=== PATIENT | male | born 1950 | race Caucasian/White ===

== ENCOUNTER 2021-06-27 11:16 | Inpatient (IN) | payer MEDICARE, SELFPAY ==
[2021-06-27] VITALS (15 sets, daily range): BP systolic 103–175; BP diastolic 66–105; PULSE 96–128; RESP 16–24; TEMP 36.4–36.6; O2SAT 94–98; BMI 29.8; BMI 35.6
--- NOTE | 2021-06-27 | ECG_ITS ---
Test Reason : chest pain Blood Pressure : / mmHG Vent. Rate : 127 BPM Atrial Rate : 133 BPM P-R Int : 184 ms QRS Dur : 176 ms QT Int : 408 ms P-R-T Axes : 066 -57 119 degrees QTc Int : 592 ms Atrial fibrillation with RVR Left axis deviation Left bundle branch block Abnormal ECG When compared with ECG of 06-JAN-2018 10:19, Afib present Referred By: Pacheco Chavez Electronically Signed By:Soto Luz
--- NOTE | ~2021-06-27 | XR_ITS ---
EXAMINATION: XR CHEST CLINICAL INFORMATION: Chest pain COMPARISON: None TECHNIQUE: Frontal view of the chest was obtained. FINDINGS: No significant abnormality is noted involving the heart, lungs, mediastinum, bony thorax or soft tissues. XR/XR chest 1V IMPRESSION: Unremarkable chest examination.
[2021-06-27 11:55] LABS: MANUAL DIFF FLAG NO
[2021-06-27 11:57] LABS: Basophils Absolute Auto 0.1 X10*3/uL (0.0-0.2); Basophils Percent Auto 0.5 % (0-2); Eosinophils Percent Auto 0.1 % (0-4); Hematocrit 47.7 % (42.0-52.0); Hemoglobin 17.1 g/dl (14.0-18.0); Imm Gran Abs Auto 0.06 X10*3/uL (0.00-0.03); Imm Gran Pct Auto 0.6 % (0.0-0.4); Lymphocytes Absolute Auto 1.4 X10*3/uL (1.2-4.9); Lymphocytes Percent Auto 13.3 % (20-40); Mean Corpuscular HGB Conc 35.8 g/dl (31.0-36.0); Mean Corpuscular Hemoglobin 32.6 pg (27.0-33.0); Mean Corpuscular Volume 90.9 fL (80.0-98.0); Mean Platelet Volume 10.7 fL (9.4-12.4); Monocytes Absolute Auto 0.7 X10*3/uL (0.1-1.2); Neutrophils Absolute Auto 8.3 x10*3/uL (2.0-8.3); Neutrophils Percent Auto 78.5 % (45-73); Platelet Count 197 X10*3/uL (160-400); Red Blood Count 5.25 X10*6/uL (4.60-5.80); Red Cell Distribution Width 12.7 % (11.0-16.0); White Blood Count 10.5 X10*3/uL (4.8-10.8)
[2021-06-27 12:01] LABS: Glucose, Whole Blood > 600 mg/dL (60-115)
[2021-06-27 12:01] LABS: Glucose, Whole Blood > 600 mg/dL (60-115)
[2021-06-27] MEDS: dilTIAZem HCL 50 MG/10 ML VIAL 20 MG IVPUSH (12:16)
[2021-06-27 12:22] LABS: B Type Natriuretic Peptide 1007 pg/mL (<100); Troponin-I High Sensitivity 43.2 ng/L (<3.5-35.0)
--- NOTE | 2021-06-27 12:22 | ED_ITS ---
HPI - Chest Pain General Chief Complaint: Chest Pain Stated Complaint: diff breathing Time Seen by Provider: 06/27/21 11:56 Source: patient and family Limitations: no limitations History of Present Illness HPI narrative: This is a 68-year-old male with a history of an enlarged heart, regular alcohol use, hypertension, diabetes, who has had chest discomfort for last few days, per the patient's son the pain was more severe last night any t hought the patient was having a heart attack. Patient has had mild shortness of breath. Denies any lower extremity swelling. He has had some nausea and vomiting. He does drink alcohol regularly, denies drinking every day, though he apparently does drink on most days. The patient does have some chest discomfort at this time Related Data Home Medications Medication Instructions Recorded Confirmed amlodipine 10 mg tablet 1 tab PO QAM 06/27/21 aspirin 81 mg tablet,delayed 1 tab PO QPM 06/27/21 release betamethasone dipropionate 0.05 % 1 appl TOPICAL BID 06/27/21 topical ointment carvedilol 25 mg tablet 1 tab PO BID 06/27/21 chlorthalidone 25 mg tablet 1 tab PO QAM 06/27/21 clonidine HCl 0.1 mg tablet 1 tab PO BID 06/27/21 cyanocobalamin (vitamin B-12) 1 tab PO QAM 06/27/21 1,000 mcg tablet glipizide 10 mg tablet 1 tab PO BID 06/27/21 hydralazine 10 mg tablet 1 tab PO BID 06/27/21 lisinopril 40 mg tablet 1 tab PO QAM 06/27/21 metformin 1,000 mg tablet 1 tab PO BID 06/27/21 pravastatin 40 mg tablet 1 tab PO QPM 06/27/21 Allergies Allergy/AdvReac Type Severity Reaction Status Date / Time No Known Allergies Allergy Unverified 04/04/20 16:48 Review of Systems Review of Systems: Yes all other systems are reviewed and are negative Constitutional: Constitutional: Reports as per HPI and Denies fever(s) Eyes: Eyes: Reports as per HPI and Reports no additional eye complaints ENT: Reports system reviewed and no additional complaints, except as documented, Reports as per HPI, Denies nasal congestion, Denies nasal discharge and Denies sore throat Cardiovascular: Cardiovascular: Reports as per HPI, Reports chest pain and Reports dyspnea Respiratory: Respiratory: Reports as per HPI, Denies cough and Reports dyspnea Gastrointestinal: Gastrointestinal: Reports as per HPI, Denies abdominal pain, Denies diarrhea, Reports nausea and Reports vomiting Genitourinary: Genitourinary: Reports as per HPI, Denies hematuria, Denies dysuria and Denies urinary frequency Musculoskeletal: Musculoskeletal: Reports no additional musculoskeletal complaints and Denies numbness Integumentary/Breasts: Skin/Breast: Reports as per HPI and Denies rash Neurologic: Reports as per HPI, Denies focal weakness, Denies numbness and Denies Sensory deficit (Neuro) Psychiatric: Psychiatric: Reports no additional psychiatric complaints and Reports as per HPI Endocrine: Endocrine: Reports no additional endocrine complaints and Reports as per HPI Hematologic/Lymphatic: Hematologic/Lymphatic: Reports no additional hematologic/lymphatic complaints, Reports as per HPI and Reports other (No peripheral edema) [facility] Past Medical History Medical History (Updated 06/27/21 @ 16:33 by Pacheco Chavez MD) Diabetes Social History Social History Alcohol intake: current Alcohol intake frequency: 3 or more drinks per day Alcohol type: hard liquor Smoked in Last 30 Days: No Use of substances other than those prescribed or required for medical reasons: No Advance Directives: No Advance Directives Information Provided: Yes Physical Exam Vital Signs: Vital Signs: Last Vital Signs Temp 97.9 F 06/27/21 11:26 Pulse 107 H 06/27/21 15:29 Resp 16 06/27/21 15:29 BP 103/76 06/27/21 15:29 Pulse Ox 95 06/27/21 15:29 BMI result Body Mass Index 35.6 Const: General: cooperative, no acute distress and alert Orientation/consciousness: patient oriented x3 HENMT: Head: Yes normal to inspection Eyes: General: appearance normal, both eyes and all related structures Eyelids: Yes eyelids normal Conjunctivae: conjunctivae normal Pupils: Equal, round and reactive pupils present Neck: Neck: Yes normal visual inspection and Yes supple Chest: Chest palpation & inspection: normal inspection of the chest Resp: Effort & Inspection: normal respiratory effort Auscultation: clear to auscultation bilaterally Cardio: Rate: abnormal rate and tachycardic Rhythm: abnormal rhythm (Tachycardic, irregular regular) Heart sounds: no gallops, no murmurs and no rubs GI: Palpation (GI): Soft to palpation, nontender and Other GI palpation findings present (Non-distended) Auscultation: normal bowel sounds Skin: General skin exam: no rashes or lesions noted Neuro: General: patient oriented x3, no focal motor deficits and CN's II-XI intact bilaterally Cranial nerves: Yes Equal, round and reactive pupils pres ent Cognition (Neuro): normal cognition Motor exam (neuro): 5/5 motor strength present throughout Sensory Exam: No Sensory deficit (Neuro) Extrem: General: Yes normal to inspection and Yes no pedal edema Psych: Appearance: grossly normal Affect: normal affect MDM - Chest Pain MDM Narrative Medical decision making narrative: Patient with a complaint of chest discomfort, also had recent vomiting. Chest pain was worse last night. EKG showed an irregular wide complex tachycardia, and on the monitor the patient seemed to have some serious of more regular and faster rhythm, initial concern for possible V-tach. My Gestalt however was the patient was in atrial fibrillation given the irregularity of the R to R intervals, and the patient was given Cardizem IV. His rate did slow down and a repeat EKG did confirm atrial fibrillation. The patient has left bundle-branch block is old, was present on EKG in 2018. Troponin was borderline elevated, likely vitae to rapid rate. Patient is also been regular alcohol drinker, though he denied drinking every day and denied feeling tremulous. The patient has also [id number] diabetic and his blood sugar was elevated, with a lab value coming back at nearly 800. The patient was given insulin initially subcutaneous, then was started on IV drip once his lab glucose came back. Patient's potassium and magnesium were normal. For adding was normal. Patient did have a mild anion gap elevation. Serum acetone was negative. Because of his need for an insulin drip, Dr. Meredith of the general machine operator service was consulted and patient is being admitted ICU. He did start the patient on phenobarbital alcohol withdrawal protocol Critical care time for this life-threatening illness exclusive of all other billable procedures was approximately 75 minutes including initial evaluation of the patient, ordering tests, x-ray interpretation, EKG interpretation, medical consultation, documentation, reevaluation. Medical Records Data Attestation: I reviewed the patient's medical records. Lab Data Attestation: I reviewed the patient's lab results. Result diagrams: 06/27/21 11:50 06/27/21 11:50 Labs: Lab Results 06/27/21 06/27/21 06/27/21 Range/Units 11:50 11:50 11:50 WBC 10.5 (4.8-10.8) X10*3/uL RBC 5.25 (4.60-5.80) X10*6/uL Hgb 17.1 (14.0-18.0) g/dl Hct 47.7 (42.0-52.0) % MCV 90.9 (80.0-98.0) fL MCH 32.6 (27.0-33.0) pg MCHC 35.8 (31.0-36.0) g/dl RDW 12.7 (11.0-16.0) % Plt Count 197 (160-400) X10*3/uL MPV 10.7 (9.4-12.4) fL Immature Gran % (Auto) 0.6 H (0.0-0.4) % Neut % (Auto) 78.5 H (45-73) % Lymph % (Auto) 13.3 L (20-40) % [place] % (Auto) 7.0 (2-11) % Eos % (Auto) 0.1 (0-4) % Baso % (Auto) 0.5 (0-2) % Lymph # (Auto) 1.4 (1.2-4.9) X10*3/uL [place] # (Auto) 0.7 (0.1-1.2) X10*3/uL Eos # (Auto) 0.0 (0.0-0.4) X10*3/uL Baso # (Auto) 0.1 (0.0-0.2) X10*3/uL Abs Immat Gran (auto) 0.06 H (0.00-0.03) X10*3/uL Absolute Neuts (auto) 8.3 (2.0-8.3) x10*3/uL Absolute Nucleated RBC 0.000 (0.0-0.012) X10*3/uL Nucleated RBC % (auto) 0.0 (0.0-0.2) /100WBC PT (9.9-13.0) SEC INR (0.9-1.1) APTT (24.1-38.0) SEC Sodium 129 L (135-145) mmol/L Potassium 3.8 (3.3-5.1) mmol/L Chloride 91 L (96-108) mmol/L Carbon Dioxide 18 L (22-29) mmol/L Anion Gap 24 H (12-20) BUN 6 L (9-16) mg/dL Creatinine 1.26 (0.5-1.4) mg/dL Estim Creat Clear Calc 59.2 Estimated GFR 56 POC Glucose (60-115) mg/dL Random Glucose 754 H* (60-115) mg/dL Calcium 9.1 (8.4-10.2) mg/dL Magnesium 1.7 (1.6-2.6) mg/dL Total Bilirubin 2.9 H (0.0-1.0) mg/dL Direct Bilirubin 1.3 H (0.0-0.5) mg/dL AST 114 H (5-37) U/L ALT 56 H (0-40) U/L Alkaline Phosphatase 269 H (39-117) U/L Troponin I High Sens 43.2 H (<3.5-35.0) ng/L B-Natriuretic Peptide 1007 H (<100) pg/mL Total Protein 7.0 (6.5-8.0) g/dL Albumin 3.9 (3.5-5.0) g/dL TSH 2.04 (0.32-4.0) uIU/mL Acetone, Qual (Negative) COVID-19 (BRAVO) (Negative) COVID-19 Clin Com 06/27/21 06/27/21 06/27/21 Range/Units 11:52 11:54 12:40 WBC (4.8-10.8) X10*3/uL RBC (4.60-5.80) X10*6/uL Hgb (14.0-18.0) g/dl Hct (42.0-52.0) % MCV (80.0-98.0) fL MCH (27.0-33.0) pg MCHC (31.0-36.0) g/dl RDW (11.0-16.0) % Plt Count (160-400) X10*3/uL MPV (9.4-12.4) fL Immature Gran % (Auto) (0.0-0.4) % Neut % (Auto) (45-73) % Lymph % (Auto) (20-40) % [place] % (Auto) (2-11) % Eos % (Auto) (0-4) % Baso % (Auto) (0-2) % Lymph # (Auto) (1.2-4.9) X10*3/uL [place] # (Auto) (0.1-1.2) X10*3/uL Eos # (Auto) (0.0-0.4) X10*3/uL Baso # (Auto) (0.0-0.2) X10*3/uL Abs Immat Gran (auto) (0.00-0.03) X10*3/uL Absolute Neuts (auto) (2.0-8.3) x10*3/uL Absolute Nucleated RBC (0.0-0.012) X10*3/uL Nucleated RBC % (auto) (0.0-0.2) /100WBC PT (9.9-13.0) SEC INR (0.9-1.1) APTT (24.1-38.0) SEC Sodium (135-145) mmol/L Potassium (3.3-5.1) mmol/L Chloride (96-108) mmol/L Carbon Dioxide (22-29) mmol/L Anion Gap (12-20) BUN (9-16) mg/dL Creatinine (0.5-1.4) mg/dL Estim Creat Clear Calc Estimated GFR POC Glucose > 600 H* > 600 H* > 600 H* (60-115) mg/dL Random Glucose (60-115) mg/dL Calcium (8.4-10.2) mg/dL Magnesium (1.6-2.6) mg/dL Total Bilirubin (0.0-1.0) mg/dL Direct Bilirubin (0.0-0.5) mg/dL AST (5-37) U/L ALT (0-40) U/L Alkaline Phosphatase (39-117) U/L Troponin I High Sens (<3.5-35.0) ng/L B-Natriuretic Peptide (<100) pg/mL Total Protein (6.5-8.0) g/dL Albumin (3.5-5.0) g/dL TSH (0.32-4.0) uIU/mL Acetone, Qual (Negative) COVID-19 (BRAVO) (Negative) COVID-19 Clin Com 06/27/21 06/27/21 06/27/21 Range/Units 14:36 14:36 14:36 WBC (4.8-10.8) X10*3/uL RBC (4.60-5.80) X10*6/uL Hgb (14.0-18.0) g/dl Hct (42.0-52.0) % MCV (80.0-98.0) fL MCH (27.0-33.0) pg MCHC (31.0-36.0) g/dl RDW (11.0-16.0) % Plt Count (160-400) X10*3/uL MPV (9.4-12.4) fL Immature Gran % (Auto) (0.0-0.4) % Neut % (Auto) (45-73) % Lymph % (Auto) (20-40) % [place] % (Auto) (2-11) % Eos % (Auto) (0-4) % Baso % (Auto) (0-2) % Lymph # (Auto) (1.2-4.9) X10*3/uL [place] # (Auto) (0.1-1.2) X10*3/uL Eos # (Auto) (0.0-0.4) X10*3/uL Baso # (Auto) (0.0-0.2) X10*3/uL Abs Immat Gran (auto) (0.00-0.03) X10*3/uL Absolute Neuts (auto) (2.0-8.3) x10*3/uL Absolute Nucleated RBC (0.0-0.012) X10*3/uL Nucleated RBC % (auto) (0.0-0.2) /100WBC PT 11.4 (9.9-13.0) SEC INR 1.0 (0.9-1.1) APTT 31.0 (24.1-38.0) SEC Sodium (135-145) mmol/L Potassium (3.3-5.1) mmol/L Chloride (96-108) mmol/L Carbon Dioxide (22-29) mmol/L Anion Gap (12-20) BUN (9-16) mg/dL Creatinine (0.5-1.4) mg/dL Estim Creat Clear Calc Estimated GFR POC Glucose (60-115) mg/dL Random Glucose (60-115) mg/dL Calcium (8.4-10.2) mg/dL Magnesium (1.6-2.6) mg/dL Total Bilirubin (0.0-1.0) mg/dL Direct Bilirubin (0.0-0.5) mg/dL AST (5-37) U/L ALT (0-40) U/L Alkaline Phosphatase (39-117) U/L Troponin I High Sens 51.1 H (<3.5-35.0) ng/L B-Natriuretic Peptide (<100) pg/mL Total Protein (6.5-8.0) g/dL Albumin (3.5-5.0) g/dL TSH (0.32-4.0) uIU/mL Acetone, Qual Negative (Negative) COVID-19 (BRAVO) (Negative) COVID-19 Clin Com 06/27/21 06/27/21 Range/Units 14:36 14:57 WBC (4.8-10.8) X10*3/uL RBC (4.60-5.80) X10*6/uL Hgb (14.0-18.0) g/dl Hct (42.0-52.0) % MCV (80.0-98.0) fL MCH (27.0-33.0) pg MCHC (31.0-36.0) g/dl RDW (11.0-16.0) % Plt Count (160-400) X10*3/uL MPV (9.4-12.4) fL Immature Gran % (Auto) (0.0-0.4) % Neut % (Auto) (45-73) % Lymph % (Auto) (20-40) % [place] % (Auto) (2-11) % Eos % (Auto) (0-4) % Baso % (Auto) (0-2) % Lymph # (Auto) (1.2-4.9) X10*3/uL [place] # (Auto) (0.1-1.2) X10*3/uL Eos # (Auto) (0.0-0.4) X10*3/uL Baso # (Auto) (0.0-0.2) X10*3/uL Abs Immat Gran (auto) (0.00-0.03) X10*3/uL Absolute Neuts (auto) (2.0-8.3) x10*3/uL Absolute Nucleated RBC (0.0-0.012) X10*3/uL Nucleated RBC % (auto) (0.0-0.2) /100WBC PT (9.9-13.0) SEC INR (0.9-1.1) APTT (24.1-38.0) SEC Sodium (135-145) mmol/L Potassium (3.3-5.1) mmol/L Chloride (96-108) mmol/L Carbon Dioxide (22-29) mmol/L Anion Gap (12-20) BUN (9-16) mg/dL Creatinine (0.5-1.4) mg/dL Estim Creat Clear Calc Estimated GFR POC Glucose 598 H* (60-115) mg/dL Random Glucose (60-115) mg/dL Calcium (8.4-10.2) mg/dL Magnesium (1.6-2.6) mg/dL Total Bilirubin (0.0-1.0) mg/dL Direct Bilirubin (0.0-0.5) mg/dL AST (5-37) U/L ALT (0-40) U/L Alkaline Phosphatase (39-117) U/L Troponin I High Sens (<3.5-35.0) ng/L B-Natriuretic Peptide (<100) pg/mL Total Protein (6.5-8.0) g/dL Albumin (3.5-5.0) g/dL TSH (0.32-4.0) uIU/mL Acetone, Qual (Negative) COVID-19 (BRAVO) Negative (Negative) COVID-19 Clin Com See Note Imaging Data Chest x-ray: Radiologist's impression: IMPRESSION: Unremarkable chest examination. ECG Data ECG #1: ECG interpretation date: 06/27/21 ECG interpretation time: 11:50 Prior ECG tracings: available for review (Report from 01/06/2018 revealed left bundle-branch block at that time) Interpretation: White complex tachycardia 0 with a rate of 127. Heart are measurements appear irregular irregular. Apparent single PVC ECG #2: Attestation: I personally reviewed and interpreted this ECG as follows: ECG interpretation date: 06/27/21 ECG interpretation time: 12:52 Prior ECG tracings: available for review Interpretation: Atrial fibrillation with a ventricular response of 113. Left bundle branch block. Left axis deviation. Discharge Plan Discharge Clinical Impression: Atrial fibrillation with rapid ventricular response, Chest pain, Acute hyperglycemia Patient Disposition: Admitted As Inpatient
[2021-06-27] MEDS: dilTIAZem HCL 125 MG in 0.9 % Sodium Chloride 100 ML 10 MG IVCONT (12:28)
[2021-06-27 12:47] LABS: Glucose, Whole Blood > 600 mg/dL (60-115)
--- NOTE | 2021-06-27 12:50 | ECG_ITS ---
Test Reason : repeat Blood Pressure : / mmHG Vent. Rate : 113 BPM Atrial Rate : 000 BPM P-R Int : 000 ms QRS Dur : 188 ms QT Int : 436 ms P-R-T Axes : 000 -46 128 degrees QTc Int : 598 ms Atrial fibrillation with rapid ventricular response Left axis deviation Left bundle branch block Abnormal ECG When compared with ECG of 27-JUN-2021 11:50, No significant changes seen Referred By: Pacheco Chavez Electronically Signed By:Soto Luz
[2021-06-27] MEDS: Aspirin 81 MG TAB.CHEW 324 MG PO (12:56)
[2021-06-27] MEDS: Nitroglycerin 2 % Oint 1 GM Packet 0.5 INCH TRANSDERMA (12:57)
[2021-06-27] MEDS: 0.9 % Sodium Chloride 1,000 ML 999 ML IV (13:20)
[2021-06-27] MEDS: LORazepam 2 MG/ML VIAL 1 MG IVPUSH ×2 (13:20→15:25)
[2021-06-27] MEDS: Insulin Regular, Human 100 UNIT/ML 3 ML VIAL 9 UNIT IVPUSH (13:20)
[2021-06-27 13:37] LABS: Alanine Aminotransferase 56 U/L (0-40); Albumin Level 3.9 g/dL (3.5-5.0); Alkaline Phosphatase 269 U/L (39-117); Anion Gap 24 (12-20); Aspartate Amino Transferase 114 U/L (5-37); Bilirubin Direct 1.3 mg/dL (0.0-0.5); Bilirubin Total 2.9 mg/dL (0.0-1.0); Blood Urea Nitrogen 6 mg/dL (9-16); Calcium 9.1 mg/dL (8.4-10.2); Carbon Dioxide 18 mmol/L (22-29); Chloride 91 mmol/L (96-108); Creatinine Clr Calc Pharmacy 59.2; Estimated Glomerular Filt Rate 56; Magnesium 1.7 mg/dL (1.6-2.6); Potassium 3.8 mmol/L (3.3-5.1); Sodium 129 mmol/L (135-145)
[2021-06-27 13:42] LABS: Thyroid Stimulating Hormone 2.04 uIU/mL (0.32-4.0)
[2021-06-27 13:44] LABS: Glucose Random 754 mg/dL (60-115)
[2021-06-27] MEDS: Insulin Regular/NS 100 UNIT/100 ML PLAST..BAG 10 UNIT IVCONT (14:08)
[2021-06-27 14:48] LABS: Prothrombin Time 11.4 SEC (9.9-13.0)
[2021-06-27 14:51] LABS: Acetone, serum QL Negative (Negative)
[2021-06-27 14:58] LABS: COVID-19 Test Negative (Negative)
[2021-06-27 15:00] LABS: Troponin-I High Sensitivity 51.1 ng/L (<3.5-35.0)
[2021-06-27 15:03] LABS: Glucose, Whole Blood 598 mg/dL (60-115)
[2021-06-27] MEDS: Lactated Ringers 1,000 ML 150 ML IVCONT (15:50)
[2021-06-27 16:00] LABS: Glucose, Whole Blood 418 mg/dL (60-115)
[2021-06-27 16:05] LABS: Glucose, Whole Blood 421 mg/dL (60-115)
[2021-06-27] MEDS: PHENobarbitaL sodium 130 MG/ML VIAL 283 MG IM (16:30)
--- NOTE | 2021-06-27 16:49 | PM.CCHP ---
History of Present Illness Date of Service: 06/27/21 Chief Complaint: chest discomfort 70-year-old gentleman with underlying history of alcohol abuse, diabetes mellitus, hypertension, AFib admitted on 06/27/2021 for complaints of chest discomfort for 16-24 hours. His ER evaluation showed no evidence of development of myocardial infarction, however patient was noted to be in diabetic ketoacidosis with early delirium tremens. He has been started on insulin drip and phenobarbital protocol and admitted to intensive care unit. Review of Systems Constitutional: Constitutional: Denies daytime sleepiness, Denies excessive sweating, Denies fatigue, Denies fever(s), Denies lethargy, Denies malaise, Denies night sweats, Denies snoring and Denies weight loss Eyes: Eyes: Denies blurry vision and Denies itchy eyes ENT: Denies nasal congestion, Denies post nasal drip, Denies sinus pain, Denies sinus pressure and Denies other ( Thrush) Cardiovascular: Cardiovascular: Denies chest pain, Reports epigastric discomfort, Reports rapid heart rate, Denies pedal edema, Denies dyspnea, Denies orthopnea and Denies paroxysmal nocturnal dyspnea Respiratory: Respiratory: Denies cough, Denies hemoptysis, Denies excessive phlegm production, Denies dyspnea, Denies snoring and Denies wheezing Gastrointestinal: Gastrointestinal: Denies abdominal pain, Denies heartburn and Reports nausea Musculoskeletal: Musculoskeletal: Denies myalgias, Denies arthralgias and Denies joint swelling Integumentary/Breasts: Skin/Breast: Denies rash Neurologic: Denies memory loss and Denies seizure-like activity Psychiatric: Psychiatric: Denies abnormal sleep pattern, Denies anxiety and Denies memory loss Endocrine: Endocrine: Denies excessive sweating, Denies fatigue and Denies heat intolerance Hematologic/Lymphatic: Hematologic/Lymphatic: Denies easy bruising Allergic/Immunologic: Allergic/Immunologic: Denies itchy eyes, Denies seasonal rhinorrhea and Denies wheezing PMFSH Past Medical History Medical History (Updated 06/27/21 @ 16:53 by Ed Meredith MD) Diabetes Social History Social History Alcohol intake: current Alcohol intake frequency: 3 or more drinks per day Alcohol type: hard liquor Smoked in Last 30 Days: No Use of substances other than those prescribed or required for medical reasons: No Advance Directives: No Advance Directives Information Provided: Yes Meds Allergies Allergy/AdvReac Type Severity Reaction Status Date / Time No Known Allergies Allergy Unverified 04/04/20 16:48 Active Medications: Current Medications Heparin Sodium (Porcine) (Heparin Sodium,Porcine 5,000 Unit/Ml Vial) 5,000 unit SUBCUT Q8H [facility] Diltiazem HCl 125 mg/ Sodium (Chloride) 125 mls @ 0 mls/hr IVCONT .Q0M [facility]; Protocol Last Titration: 06/27/21 13:01 Dose: 15 mg/hr, 15 mls/hr Documented by: Insulin Human Regular (Myxredlin) 100 unit in 100 mls @ 0 mls/hr IVCONT .Q0M JESUS; Protocol Last Titration: 06/27/21 15:55 Dose: 2.5 unit/hr, 2.5 mls/hr Documented by: Lactated Ringer's (Lr) 1,000 mls @ 150 mls/hr IVCONT .Q6H40M [facility] Last Admin: 06/27/21 15:50 Dose: 150 mls/hr Documented by: Medication (No Benzodiazepines) 1 each MISCELLANE DAILY [facility] Pharmacy Consult (Consult Rx Perform Med Rec) 1 each MISCELLANE ONCE PRN PRN Reason: Consult order Phenobarbital (Phenobarbital 15 Mg Tablet) 45 mg PO BID [facility] Stop: 06/29/21 21:01 Phenobarbital (Phenobarbital 30 Mg Tablet) 30 mg PO BID [facility] Stop: 07/01/21 21:01 Phenobarbital (Phenobarbital 15 Mg Tablet) 15 mg PO DAILY [facility] Stop: 07/03/21 09:01 Phenobarbital Sodium (Phenobarbital Sodium 130 Mg/Ml Vial) 212 mg IM 1999,2300 [facility] Stop: 06/27/21 23:01 Home Medications Medication Instructions Recorded Confirmed Last Taken Type amlodipine 10 mg tablet 1 tab PO QAM 06/27/21 06/27/21 Unknown History aspirin 81 mg tablet,delayed 1 tab PO QPM 06/27/21 06/27/21 Unknown History release betamethasone dipropionate 0.05 % 1 appl TOPICAL BID 06/27/21 06/27/21 Unknown History topical ointment carvedilol 25 mg tablet 1 tab PO BID 06/27/21 06/27/21 Unknown History chlorthalidone 25 mg tablet 1 tab PO QAM 06/27/21 06/27/21 Unknown History clonidine HCl 0.1 mg tablet 1 tab PO BID 06/27/21 06/27/21 Unknown History cyanocobalamin (vitamin B-12) 1 tab PO QAM 06/27/21 06/27/21 Unknown History 1,000 mcg tablet glipizide 10 mg tablet 1 tab PO BID 06/27/21 06/27/21 Unknown History hydralazine 10 mg tablet 1 tab PO BID 06/27/21 06/27/21 Unknown History lisinopril 40 mg tablet 1 tab PO QAM 06/27/21 06/27/21 Unknown History metformin 1,000 mg tablet 1 tab PO BID 06/27/21 06/27/21 Unknown History pravastatin 40 mg tablet 1 tab PO BEDTIME 06/27/21 06/27/21 Unknown History Physical Exam Vital Signs: Vital Signs: Last Vital Signs Temp 97.8 F 06/27/21 16:29 Pulse 107 H 06/27/21 16:29 Resp 19 06/27/21 16:29 BP 104/77 06/27/21 16:29 Pulse Ox 96 06/27/21 16:29 BMI result Body Mass Index 35.6 Const: General: no acute distress, alert and awake Eyes: Sclerae: sclerae normal EOM: EOMs intact bilaterally Neck: Neck: Yes no lymphadenopathy, Yes trachea midline and Yes supple Resp: Effort & Inspection: normal respiratory effort and no respiratory distress Auscultation: clear to auscultation bilaterally Cardio: Rate: tachycardic Rhythm: abnormal rhythm irregularly irregular Heart sounds: no gallops, no murmurs and no rubs GI: Palpation (GI): Soft to palpation and Other GI palpation findings present ( Nontender) Auscultation: normal bowel sounds Extrem: General: Yes no pedal edema, No clubbing and No cyanosis Results Labs CBC and Chem 7: 06/27/21 11:50 06/27/21 11:50 Labs: Laboratory Results - last 24 hr 06/27/21 06/27/21 06/27/21 11:50 11:50 11:50 MCV 90.9 MCH 32.6 MCHC 35.8 RDW 12.7 Plt Count 197 MPV 10.7 Immature Gran % (Auto) 0.6 H Neut % (Auto) 78.5 H Lymph % (Auto) 13.3 L [place] % (Auto) 7.0 Eos % (Auto) 0.1 Baso % (Auto) 0.5 Lymph # (Auto) 1.4 [place] # (Auto) 0.7 Eos # (Auto) 0.0 Baso # (Auto) 0.1 Abs Immat Gran (auto) 0.06 H Absolute Neuts (auto) 8.3 Absolute Nucleated RBC 0.000 Nucleated RBC % (auto) 0.0 PT INR APTT Anion Gap 24 H Estim Creat Clear Calc 59.2 Estimated GFR 56 POC Glucose Random Glucose 754 H* Calcium 9.1 Magnesium 1.7 Total Bilirubin 2.9 H Direct Bilirubin 1.3 H AST 114 H ALT 56 H Alkaline Phosphatase 269 H Troponin I High Sens 43.2 H B-Natriuretic Peptide 1007 H Total Protein 7.0 Albumin 3.9 TSH 2.04 Acetone, Qual COVID-19 (BRAVO) [employer] 06/27/21 06/27/21 06/27/21 11:52 11:54 12:40 MCV MCH MCHC RDW Plt Count MPV Immature Gran % (Auto) Neut % (Auto) Lymph % (Auto) [place] % (Auto) Eos % (Auto) Baso % (Auto) Lymph # (Auto) [place] # (Auto) Eos # (Auto) Baso # (Auto) Abs Immat Gran (auto) Absolute Neuts (auto) Absolute Nucleated RBC Nucleated RBC % (auto) PT INR APTT Anion Gap Estim Creat Clear Calc Estimated GFR POC Glucose > 600 H* > 600 H* > 600 H* Random Glucose Calcium Magnesium Total Bilirubin Direct Bilirubin AST ALT Alkaline Phosphatase Troponin I High Sens B-Natriuretic Peptide Total Protein Albumin TSH Acetone, Qual COVID-19 (BRAVO) COVID-[employer] 06/27/21 06/27/21 06/27/21 14:36 14:36 14:36 MCV MCH MCHC RDW Plt Count MPV Immature Gran % (Auto) Neut % (Auto) Lymph % (Auto) [place] % (Auto) Eos % (Auto) Baso % (Auto) Lymph # (Auto) [place] # (Auto) Eos # (Auto) Baso # (Auto) Abs Immat Gran (auto) Absolute Neuts (auto) Absolute Nucleated RBC Nucleated RBC % (auto) PT 11.4 INR 1.0 APTT 31.0 Anion Gap Estim Creat Clear Calc Estimated GFR POC Glucose Random Glucose Calcium Magnesium Total Bilirubin Direct Bilirubin AST ALT Alkaline Phosphatase Troponin I High Sens 51.1 H B-Natriuretic Peptide Total Protein Albumin TSH Acetone, Qual Negative COVID-19 (BRAVO) COVID-19 Clin Com 06/27/21 06/27/21 06/27/21 14:36 14:57 15:53 MCV MCH MCHC RDW Plt Count MPV Immature Gran % (Auto) Neut % (Auto) Lymph % (Auto) [place] % (Auto) Eos % (Auto) Baso % (Auto) Lymph # (Auto) [place] # (Auto) Eos # (Auto) Baso # (Auto) Abs Immat Gran (auto) Absolute Neuts (auto) Absolute Nucleated RBC Nucleated RBC % (auto) PT INR APTT Anion Gap Estim Creat Clear Calc Estimated GFR POC Glucose 598 H* 418 H* Random Glucose Calcium Magnesium Total Bilirubin Direct Bilirubin AST ALT Alkaline Phosphatase Troponin I High Sens B-Natriuretic Peptide Total Protein Albumin TSH Acetone, Qual COVID-19 (BRAVO) Negative COVID-19 Clin Com See Note 06/27/21 16:01 MCV MCH MCHC RDW Plt Count MPV Immature Gran % (Auto) Neut % (Auto) Lymph % (Auto) [place] % (Auto) Eos % (Auto) Baso % (Auto) Lymph # (Auto) [place] # (Auto) Eos # (Auto) Baso # (Auto) Abs Immat Gran (auto) Absolute Neuts (auto) Absolute Nucleated RBC Nucleated RBC % (auto) PT INR APTT Anion Gap Estim Creat Clear Calc Estimated GFR POC Glucose 421 H* Random Glucose Calcium Magnesium Total Bilirubin Direct Bilirubin AST ALT Alkaline Phosphatase Troponin I High Sens B-Natriuretic Peptide Total Protein Albumin TSH Acetone, Qual COVID-19 (BRAVO) COVID-19 Clin Com Imaging Radiologist's Impressions: Impressions Chest X-Ray 06/27/21 12:17 IMPRESSION: Unremarkable chest examination. Assessment and Plan (1) Atrial fibrillation with rapid ventricular response: Status: Acute (2) DKA (diabetic ketoacidosis): Status: Acute (3) Delirium tremens: Status: Acute Assessment: 70-year-old gentleman with underlying alcohol abuse, hypertension, diabetes mellitus admitted with diabetic ketoacidosis, delirium tremens, and AFib with RVR Plan: Neuro: delirium tremens, started on phenobarbital protocol. Cardiac: No evidence of myocardial infarction. Will obtain 2D echocardiogram for further evaluation. AFib, started on Eliquis. under underlying history of hypertension. Pulmonary: No acute issues. Renal: No acute issues. Endo: Diabetes ketoacidosis, started on insulin drip. GI: No acute issues. ID: No acute issues Heme/Onc: No acute issues. Psych: No acute issues. Miscellaneous: No acute issues. Prophylaxis: Eliquis Diet: nothing by mouth Critical care time spent: 45 minutes
--- NOTE | 2021-06-27 16:52 | PHA.MEDREC ---
MED REC COMPLETE, CONFIRMED FROM PHARMACY ONLY. ALSO REACHED OUT TO PATIENT CONTACT LISTED IN COMPUTER TO ATTEMPT TO CONFIRM MEDICATIONS. Pharmacy Consult ? Medication Reconciliation Pharmacy has completed the medication reconciliation.
[2021-06-27 17:01] LABS: Glucose, Whole Blood 363 mg/dL (60-115)
[2021-06-27 18:01] LABS: Glucose, Whole Blood 371 mg/dL (60-115)
[2021-06-27 18:08] LABS: Anion Gap 18 (12-20); Blood Urea Nitrogen 7 mg/dL (9-16); Calcium 8.8 mg/dL (8.4-10.2); Carbon Dioxide 23 mmol/L (22-29); Chloride 99 mmol/L (96-108); Creatinine Clr Calc Pharmacy 74.6; Estimated Glomerular Filt Rate > 60; Glucose Random 396 mg/dL (60-115); Potassium 3.5 mmol/L (3.3-5.1); Sodium 136 mmol/L (135-145)
[2021-06-27 19:06] LABS: Glucose, Whole Blood 378 mg/dL (60-115)
[2021-06-27] MEDS: Insulin Glargine,Hum.rec.anlog 100 UNIT/ML 10 ML VIAL 15 UNIT SUBCUT (19:32)
[2021-06-27 20:35] LABS: Glucose, Whole Blood 286 mg/dL (60-115)
[2021-06-27] MEDS: Apixaban 5 MG TABLET PO (20:48)
[2021-06-27] MEDS: PHENobarbitaL sodium 130 MG/ML VIAL 212 MG IM (20:49)
--- NOTE | 2021-06-27 20:52 | PC.NURSE ---
Insulin drip off at 2030 and poc check at the same time 286. next poc is in one hour.
--- NOTE | 2021-06-27 21:19 | MHC.CM.PN ---
Addendum entered by Donna Edwards 06/27/21 21:25: Son tells CM he feels his father needs more GENERATOR MECHANIC hours. Encouraged son to call [facility] and speak with his father's physician primary care sports medicine. Original Note: CM met with admitted patient with bed assignment pending and son. curriculum assistant used, as pt is [place] speaking. IMM reviewed and signed per protocol 06/27/21@1930, copy given and to medical records. No HCP on file. HCP reviewed, completed and signed. Copies given and uploaded into Care [employer] and [facility] Provident Link. HCP/son Abimael Georges ([phone]). Pt is fully vaccinated with Pfizer. Pt has GENERATOR MECHANIC services through [employer] via [facility]. GENERATOR MECHANIC 3 hours/day, 5 days a week. D/C plan is home with [facility] services. No referrals made. CM to call [facility] for guidance. CM to follow for d/c needs.
[2021-06-27 21:38] LABS: Glucose, Whole Blood 294 mg/dL (60-115)
[2021-06-27 22:34] LABS: Glucose, Whole Blood 312 mg/dL (60-115)
[2021-06-27] MEDS: Insulin Lispro 100 UNIT/ML 3 ML VIAL 6 UNIT SUBCUT (23:04)
[2021-06-27 23:33] LABS: Glucose, Whole Blood 300 mg/dL (60-115)
[2021-06-28] VITALS (15 sets, daily range): BP systolic 107–152; BP diastolic 46–96; PULSE 74–111; RESP 16–22; TEMP 36.5–36.7; O2SAT 93–99
[2021-06-28] MEDS: PHENobarbitaL sodium 130 MG/ML VIAL 212 MG IM (00:21)
[2021-06-28] MEDS: Insulin Lispro 100 UNIT/ML 3 ML VIAL SUBCUT ×5 (01:20→17:05)
--- NOTE | 2021-06-28 01:21 | PC.NURSE ---
PT POC TAKEN AND AT 0120 POC 169 AND TREATED WITH SLIDING SCALE.
[2021-06-28 01:59] LABS: Glucose, Whole Blood 169 mg/dL (60-115)
[2021-06-28 06:23] LABS: MANUAL DIFF FLAG NO
[2021-06-28 06:26] LABS: Venous Blood Gas Refer to POC result
[2021-06-28 06:26] LABS: VBG Base Excess 3.3 mmol/L; VBG HCO3 25 mmol/L (22-26); VBG pCO2 32 mmHg; VBG pO2 75 mmHg
[2021-06-28 06:31] LABS: Basophils Absolute Auto 0.1 X10*3/uL (0.0-0.2); Basophils Percent Auto 0.6 % (0-2); Eosinophils Absolute Auto 0.1 X10*3/uL (0.0-0.4); Eosinophils Percent Auto 1.4 % (0-4); Hematocrit 39.3 % (42.0-52.0); Hemoglobin 14.3 g/dl (14.0-18.0); Imm Gran Abs Auto 0.04 X10*3/uL (0.00-0.03); Imm Gran Pct Auto 0.4 % (0.0-0.4); Lymphocytes Absolute Auto 1.3 X10*3/uL (1.2-4.9); Lymphocytes Percent Auto 13.6 % (20-40); Mean Corpuscular HGB Conc 36.4 g/dl (31.0-36.0); Mean Corpuscular Hemoglobin 32.7 pg (27.0-33.0); Mean Corpuscular Volume 89.9 fL (80.0-98.0); Mean Platelet Volume 10.2 fL (9.4-12.4); Monocytes Absolute Auto 0.7 X10*3/uL (0.1-1.2); Monocytes Percent Auto 6.9 % (2-11); Neutrophils Absolute Auto 7.3 x10*3/uL (2.0-8.3); Neutrophils Percent Auto 77.1 % (45-73); Platelet Count 152 X10*3/uL (160-400); Red Blood Count 4.37 X10*6/uL (4.60-5.80); Red Cell Distribution Width 12.8 % (11.0-16.0); White Blood Count 9.5 X10*3/uL (4.8-10.8)
[2021-06-28 06:42] LABS: Glucose, Whole Blood 227 mg/dL (60-115)
[2021-06-28 06:46] LABS: Albumin Level 3.1 g/dL (3.5-5.0); Anion Gap 14 (12-20); Blood Urea Nitrogen 9 mg/dL (9-16); Calcium 7.9 mg/dL (8.4-10.2); Carbon Dioxide 24 mmol/L (22-29); Chloride 103 mmol/L (96-108); Creatinine Clr Calc Pharmacy 101.6; Estimated Glomerular Filt Rate > 60; Glucose Random 226 mg/dL (60-115); Magnesium 1.5 mg/dL (1.6-2.6); Phosphorus 3.2 mg/dL (2.7-4.5); Potassium 2.6 mmol/L (3.3-5.1); Sodium 138 mmol/L (135-145)
--- NOTE | 2021-06-28 07:31 | PC.NURSE ---
Report rec'd from Sharon. Pt resting comfortably, self positions in bed, insulin given per protocol. HR 90's Afib on the monitor, awaiting Nancy boyer from pharm. Will continue to monitor. Sitter in place at this time.
[2021-06-28] MEDS: Apixaban 5 MG TABLET PO ×2 (08:01→21:07)
[2021-06-28] MEDS: Magnesium Oxide 400 MG TABLET PO ×2 (08:01→17:08)
[2021-06-28] MEDS: Potassium Chloride ER 20 MEQ TAB.ER.PRT 40 MEQ PO ×2 (08:02→16:33)
[2021-06-28] MEDS: PHENobarbitaL 15 MG TABLET 45 MG PO ×2 (08:03→21:07)
--- NOTE | 2021-06-28 08:09 | PC.NURSE ---
Sitting in bed, cardizem drip stopped due to running out of medication. HR 82 A fib, morning dose of elliquis given. Awaiting bed assignment. Pt eating breakfast at this time. Will continue to monitor.
--- NOTE | 2021-06-28 08:37 | HO.PM.IMPN ---
Subjective Subjective Date of Service: 06/28/21 Interval History: cc: chest pain interval history: resolved Cardiovascular Cardiovascular: Reports no additional cardiovascular complaints Respiratory Respiratory: Reports no additional respiratory complaints Physical Exam Vital Signs: Vital Signs: Last Vital Signs Temp 97.6 F 06/27/21 19:41 Pulse 88 06/28/21 07:01 Resp 16 06/28/21 07:01 BP 124/81 06/28/21 07:01 Pulse Ox 96 06/28/21 07:01 BMI result Body Mass Index 35.6 General: AO X 3, no acute distress Resp: diminished bilateral, no accessory muscles used CVS: S1,S2,irregular GI: soft, non tender, non distended Neuro: motor grossly intact, alert Psych: appropriate affect, impaired insight Objective Data Active Medications Apixaban (Apixaban 5 Mg Tablet) 5 mg PO BID [facility] Last Admin: 06/28/21 08:01 Dose: 5 mg Documented by: MICHELLE-RAMSUAD Carvedilol (Carvedilol 25 Mg Tablet) 25 mg PO BID [facility]; Protocol Cyanocobalamin (Cyanocobalamin (Vitamin B-12) 1,000 Mcg Tablet) 1,000 mcg PO DAILY [facility] Diltiazem HCl 125 mg/ Sodium (Chloride) 125 mls @ 0 mls/hr IVCONT .Q0M [facility]; Protocol Last Titration: 06/27/21 22:12 Dose: 0 mg/hr, 0 mls/hr Documented by: MCTAtif Insulin Human Lispro (Insulin Lispro 100 Unit/Ml 3 Ml Vial) 0 unit SUBCUT Q6H [facility]; Protocol Last Admin: 06/28/21 07:26 Dose: 4 unit Documented by: MICHELLE-RAMSUAD [facility] ([facility]ide 400 Mg [facility]t) [facility] Last Admin: 06/28/21 08:01 Dose: 400 mg Documented by: MICHELLE-RAMSUAD Medication (No Benzodiazepines) 1 each MISCELLANE DAILY [facility] Pharmacy Consult (Consult Rx Perform Med Rec) 1 each MISCELLANE ONCE PRN PRN Reason: Consult order Phenobarbital (Phenobarbital 15 Mg Tablet) 45 mg PO BID [facility] Stop: 06/29/21 21:01 Last Admin: 06/28/21 08:03 Dose: 45 mg Documented by: MICHELLE-RAMSUAD Phenobarbital (Phenobarbital 30 Mg Tablet) 30 mg PO BID [facility] Stop: 07/01/21 21:01 Phenobarbital (Phenobarbital 15 Mg Tablet) 15 mg PO DAILY [facility] Stop: 07/03/21 09:01 Pravastatin Sodium (Pravastatin Sodium 40 Mg Tablet) 40 mg PO BEDTIME [facility] Labs CBC & Chem 7: 06/28/21 06:19 06/28/21 06:19 Labs: Laboratory Results - last 24 hr 06/27/21 06/27/21 06/27/21 11:50 11:50 11:50 MCV 90.9 MCH 32.6 MCHC 35.8 RDW 12.7 Plt Count 197 MPV 10.7 Immature Gran % (Auto) 0.6 H Neut % (Auto) 78.5 H Lymph % (Auto) 13.3 L [place] % (Auto) 7.0 Eos % (Auto) 0.1 Baso % (Auto) 0.5 Lymph # (Auto) 1.4 [place] # (Auto) 0.7 Eos # (Auto) 0.0 Baso # (Auto) 0.1 Abs Immat Gran (auto) 0.06 H Absolute Neuts (auto) 8.3 Absolute Nucleated RBC 0.000 Nucleated RBC % (auto) 0.0 PT INR APTT VBG pH VBG pCO2 VBG pO2 VBG HCO3 VBG O2 Saturation VBG Base Excess Anion Gap 24 H Estim Creat Clear Calc 59.2 Estimated GFR 56 POC Glucose Random Glucose 754 H* Calcium 9.1 Phosphorus Magnesium 1.7 Total Bilirubin 2.9 H Direct Bilirubin 1.3 H AST 114 H ALT 56 H Alkaline Phosphatase 269 H Troponin I High Sens 43.2 H B-Natriuretic Peptide 1007 H Total Protein 7.0 Albumin 3.9 TSH 2.04 Acetone, Qual COVID-19 (BRAVO) COVID-19 Clin Com 06/27/21 06/27/21 06/27/21 11:52 11:54 12:40 MCV MCH MCHC RDW Plt Count MPV Immature Gran % (Auto) Neut % (Auto) Lymph % (Auto) [place] % (Auto) Eos % (Auto) Baso % (Auto) Lymph # (Auto) [place] # (Auto) Eos # (Auto) Baso # (Auto) Abs Immat Gran (auto) Absolute Neuts (auto) Absolute Nucleated RBC Nucleated RBC % (auto) PT INR APTT VBG pH VBG pCO2 VBG pO2 VBG HCO3 VBG O2 Saturation VBG Base Excess Anion Gap Estim Creat Clear Calc Estimated GFR POC Glucose > 600 H* > 600 H* > 600 H* Random Glucose Calcium Phosphorus Magnesium Total Bilirubin Direct Bilirubin AST ALT Alkaline Phosphatase Troponin I High Sens B-Natriuretic Peptide Total Protein Albumin TSH Acetone, Qual COVID-19 (BRAVO) COVID-19 [email or web address] 06/27/21 06/27/21 06/27/21 14:36 14:36 14:36 MCV MCH MCHC RDW Plt Count MPV Immature Gran % (Auto) Neut % (Auto) Lymph % (Auto) [place] % (Auto) Eos % (Auto) Baso % (Auto) Lymph # (Auto) [place] # (Auto) Eos # (Auto) Baso # (Auto) Abs Immat Gran (auto) Absolute Neuts (auto) Absolute Nucleated RBC Nucleated RBC % (auto) PT 11.4 INR 1.0 APTT 31.0 VBG pH VBG pCO2 VBG pO2 VBG HCO3 VBG O2 Saturation VBG Base Excess Anion Gap Estim Creat Clear Calc Estimated GFR POC Glucose Random Glucose Calcium Phosphorus Magnesium Total Bilirubin Direct Bilirubin AST ALT Alkaline Phosphatase Troponin I High Sens 51.1 H B-Natriuretic Peptide Total Protein Albumin TSH Acetone, Qual Negative COVID-19 (BRAVO) [email or web address] 06/27/21 06/27/21 06/27/21 14:36 14:57 15:53 MCV MCH MCHC RDW Plt Count MPV Immature Gran % (Auto) Neut % (Auto) Lymph % (Auto) [place] % (Auto) Eos % (Auto) Baso % (Auto) Lymph # (Auto) [place] # (Auto) Eos # (Auto) Baso # (Auto) Abs Immat Gran (auto) Absolute Neuts (auto) Absolute Nucleated RBC Nucleated RBC % (auto) PT INR APTT VBG pH VBG pCO2 VBG pO2 VBG HCO3 VBG O2 Saturation VBG Base Excess Anion Gap Estim Creat Clear Calc Estimated GFR POC Glucose 598 H* 418 H* Random Glucose Calcium Phosphorus Magnesium Total Bilirubin Direct Bilirubin AST ALT Alkaline Phosphatase Troponin I High Sens B-Natriuretic Peptide Total Protein Albumin TSH Acetone, Qual COVID-19 (BRAVO) Negative COVIDFlaskon See Note 06/27/21 06/27/21 06/27/21 16:01 16:58 17:36 MCV MCH MCHC RDW Plt Count MPV Immature Gran % (Auto) Neut % (Auto) Lymph % (Auto) [place] % (Auto) Eos % (Auto) Baso % (Auto) Lymph # (Auto) [place] # (Auto) Eos # (Auto) Baso # (Auto) Abs Immat Gran (auto) Absolute Neuts (auto) Absolute Nucleated RBC Nucleated RBC % (auto) PT INR APTT VBG pH VBG pCO2 VBG pO2 VBG HCO3 VBG O2 Saturation VBG Base Excess Anion Gap 18 Estim Creat Clear Calc 74.6 Estimated GFR > 60 POC Glucose 421 H* 363 H* Random Glucose 396 H* Calcium 8.8 Phosphorus Magnesium Total Bilirubin Direct Bilirubin AST ALT Alkaline Phosphatase Troponin I High Sens B-Natriuretic Peptide Total Protein Albumin TSH Acetone, Qual COVID-19 (BRAVO) COVID-19 [email or web address] 06/27/21 06/27/21 06/27/21 17:57 19:00 20:30 MCV MCH MCHC RDW Plt Count MPV Immature Gran % (Auto) Neut % (Auto) Lymph % (Auto) [place] % (Auto) Eos % (Auto) Baso % (Auto) Lymph # (Auto) [place] # (Auto) Eos # (Auto) Baso # (Auto) Abs Immat Gran (auto) Absolute Neuts (auto) Absolute Nucleated RBC Nucleated RBC % (auto) PT INR APTT VBG pH VBG pCO2 VBG pO2 VBG HCO3 VBG O2 Saturation VBG Base Excess Anion Gap Estim Creat Clear Calc Estimated GFR POC Glucose 371 H* 378 H* 286 H Random Glucose Calcium Phosphorus Magnesium Total Bilirubin Direct Bilirubin AST ALT Alkaline Phosphatase Troponin I High Sens B-Natriuretic Peptide Total Protein Albumin TSH Acetone, Qual COVID-19 (BRAVO) COVID-[email or web address] 06/27/21 06/27/21 06/27/21 21:32 22:28 23:27 MCV MCH MCHC RDW Plt Count MPV Immature Gran % (Auto) Neut % (Auto) Lymph % (Auto) [place] % (Auto) Eos % (Auto) Baso % (Auto) Lymph # (Auto) [place] # (Auto) Eos # (Auto) Baso # (Auto) Abs Immat Gran (auto) Absolute Neuts (auto) Absolute Nucleated RBC Nucleated RBC % (auto) PT INR APTT VBG pH VBG pCO2 VBG pO2 VBG HCO3 VBG O2 Saturation VBG Base Excess Anion Gap Estim Creat Clear Calc Estimated GFR POC Glucose 294 H 312 H 300 H Random Glucose Calcium Phosphorus Magnesium Total Bilirubin Direct Bilirubin AST ALT Alkaline Phosphatase Troponin I High Sens B-Natriuretic Peptide Total Protein Albumin TSH Acetone, Qual COVID-19 (BRAVO) COVID-19 [email or web address] 06/28/21 06/28/21 06/28/21 01:12 06:19 06:19 MCV 89.9 MCH 32.7 MCHC 36.4 H RDW 12.8 Plt Count 152 L MPV 10.2 Immature Gran % (Auto) 0.4 Neut % (Auto) 77.1 H Lymph % (Auto) 13.6 L [place] % (Auto) 6.9 Eos % (Auto) 1.4 Baso % (Auto) 0.6 Lymph # (Auto) 1.3 [place] # (Auto) 0.7 Eos # (Auto) 0.1 Baso # (Auto) 0.1 Abs Immat Gran (auto) 0.04 H Absolute Neuts (auto) 7.3 Absolute Nucleated RBC 0.000 Nucleated RBC % (auto) 0.0 PT INR APTT VBG pH VBG pCO2 VBG pO2 VBG HCO3 VBG O2 Saturation VBG Base Excess Anion Gap 14 Estim Creat Clear Calc 101.6 Estimated GFR > 60 POC Glucose 169 H Random Glucose 226 H D Calcium 7.9 L D Phosphorus 3.2 Magnesium 1.5 L Total Bilirubin Direct Bilirubin AST ALT Alkaline Phosphatase Troponin I High Sens B-Natriuretic Peptide Total Protein Albumin 3.1 L D TSH Acetone, Qual COVID-19 (BRAVO) [email or web address] 06/28/21 06/28/21 06:20 06:38 MCV MCH MCHC RDW Plt Count MPV Immature Gran % (Auto) Neut % (Auto) Lymph % (Auto) [place] % (Auto) Eos % (Auto) Baso % (Auto) Lymph # (Auto) [place] # (Auto) Eos # (Auto) Baso # (Auto) Abs Immat Gran (auto) Absolute Neuts (auto) Absolute Nucleated RBC Nucleated RBC % (auto) PT INR APTT VBG pH 7.50 H VBG pCO2 32 VBG pO2 75 VBG HCO3 25 VBG O2 Saturation 95.0 VBG Base Excess 3.3 Anion Gap Estim Creat Clear Calc Estimated GFR POC Glucose 227 H Random Glucose Calcium Phosphorus Magnesium Total Bilirubin Direct Bilirubin AST ALT Alkaline Phosphatase Troponin I High Sens B-Natriuretic Peptide Total Protein Albumin TSH Acetone, Qual COVID-19 (BRAVO) COVID-19 Clin Com Assessment and Plan (1) DKA (diabetic ketoacidosis): Status: Acute (2) Delirium tremens: Status: Acute (3) Atrial fibrillation with rapid ventricular response: Status: Acute (4) Chest pain: Status: Acute Assessment and Plan: 70M presented with chest pain found to be in afib with rvr, alcohol withdrawal, and dka, was treated dwith phenobarb, cardizem, and insulin. gap closed, glucose improved and was downgraded to medical service. DKA resolved, conitnue insulin, monitor poc alcohol dependence with alcohol withdrawal and hepatitis phenobarbital, ciwa chest pain resolved, troponins negative, echo pending new afib with rvr on cardizem infusion, rate ocntrolled, will dc infusion, start on oral, continue newly started eliquis hypokalemia due to DKA, insulin, hypomagnesemia replace and monitor Quality Stroke Does the patient have a stroke diagnosis?: No VTE Prior VTE?: No VTE Risk Level:: Medical - moderate - high VTE Device Contraindication: Treatment Not Indicated VTE Drug Contraindication: N/A - Med Ordered
[2021-06-28] MEDS: Cyanocobalamin (Vitamin B-12) 1,000 MCG TABLET 1000 MCG PO (10:20)
[2021-06-28] MEDS: carvediloL 25 MG TABLET PO ×2 (10:20→21:08)
[2021-06-28] MEDS: dilTIAZem HCL CD 240 MG CAP.ER.DEG PO (10:35)
--- NOTE | 2021-06-28 11:51 | PC.NURSE ---
VS as documented, pt restless at this time, Bed alarm placed, awaiting bed assignment. Will continue to monitor.
--- NOTE | 2021-06-28 12:17 | PC.NURSE ---
Medicated w/10 units MD elizabeth made aware of BG 365, awaitingmeal tray
[2021-06-28 12:31] LABS: Glucose, Whole Blood 365 mg/dL (60-115)
[2021-06-28 16:05] LABS: Glucose, Whole Blood 400 mg/dL (60-115)
[2021-06-28] MEDS: Insulin Lispro 100 UNIT/ML 3 ML VIAL 10 UNIT SUBCUT (16:32)
[2021-06-28 20:09] LABS: Glucose, Whole Blood 139 mg/dL (60-115)
[2021-06-28] MEDS: Insulin Glargine,Hum.rec.anlog 100 UNIT/ML 10 ML VIAL 20 UNIT SUBCUT (21:11)
[2021-06-29] VITALS (7 sets, daily range): BP systolic 113–142; BP diastolic 60–75; PULSE 73–93; RESP 17–18; TEMP 36.1–36.4; O2SAT 93–97
[2021-06-29 00:02] LABS: Glucose, Whole Blood 344 mg/dL (60-115)
[2021-06-29] MEDS: Insulin Lispro 100 UNIT/ML 3 ML VIAL SUBCUT ×9 (00:11→21:41)
[2021-06-29 05:17] LABS: Hematocrit 36.3 % (42.0-52.0); Hemoglobin 12.7 g/dl (14.0-18.0); Mean Corpuscular Hemoglobin 32.3 pg (27.0-33.0); Mean Corpuscular Volume 92.4 fL (80.0-98.0); Mean Platelet Volume 10.7 fL (9.4-12.4); Platelet Count 155 X10*3/uL (160-400); Red Blood Count 3.93 X10*6/uL (4.60-5.80); Red Cell Distribution Width 13.3 % (11.0-16.0); White Blood Count 8.3 X10*3/uL (4.8-10.8)
[2021-06-29 05:49] LABS: Alanine Aminotransferase 32 U/L (0-40); Alkaline Phosphatase 135 U/L (39-117); Anion Gap 11 (12-20); Aspartate Amino Transferase 59 U/L (5-37); Bilirubin Direct 0.6 mg/dL (0.0-0.5); Bilirubin Total 1.1 mg/dL (0.0-1.0); Blood Urea Nitrogen 16 mg/dL (9-16); Calcium 7.9 mg/dL (8.4-10.2); Carbon Dioxide 27 mmol/L (22-29); Chloride 102 mmol/L (96-108); Creatinine Clr Calc Pharmacy 99.2; Estimated Glomerular Filt Rate > 60; Glucose Fasting 178 mg/dL (60-99); Magnesium 1.8 mg/dL (1.6-2.6); Potassium 3.3 mmol/L (3.3-5.1); Sodium 137 mmol/L (135-145); Total Protein 5.3 g/dL (6.5-8.0)
[2021-06-29 08:13] LABS: Glucose, Whole Blood 202 mg/dL (60-115)
[2021-06-29] MEDS: Apixaban 5 MG TABLET PO ×2 (08:21→21:26)
[2021-06-29] MEDS: dilTIAZem HCL CD 240 MG CAP.ER.DEG PO (08:21)
[2021-06-29] MEDS: carvediloL 25 MG TABLET PO ×2 (08:21→21:28)
[2021-06-29] MEDS: PHENobarbitaL 15 MG TABLET 45 MG PO ×2 (08:22→21:26)
[2021-06-29] MEDS: Magnesium Oxide 400 MG TABLET PO ×2 (08:22→16:53)
[2021-06-29] MEDS: Cyanocobalamin (Vitamin B-12) 1,000 MCG TABLET 1000 MCG PO (08:22)
[2021-06-29] MEDS: Potassium Chloride ER 20 MEQ TAB.ER.PRT 40 MEQ PO (08:22)
--- NOTE | 2021-06-29 09:57 | HO.PM.IMPN ---
Subjective Subjective Date of Service: 06/29/21 Interval History: cc: chest pain interval history: resolved Cardiovascular Cardiovascular: Reports no additional cardiovascular complaints Respiratory Respiratory: Reports no additional respiratory complaints Physical Exam Vital Signs: Vital Signs: Last Vital Signs Temp 97.2 F 06/29/21 07:50 Pulse 77 06/29/21 07:50 Resp 18 06/29/21 07:50 BP 117/60 06/29/21 07:50 Pulse Ox 93 06/29/21 07:50 BMI result Body Mass Index 35.6 General: AO X 3, no acute distress Resp:? diminished bilateral, no accessory muscles used CVS: S1,S2,irregular GI: soft, non tender, non distended Neuro:? motor grossly intact, alert Psych: appropriate affect, impaired insight? Objective Data Active Medications Apixaban (Apixaban 5 Mg Tablet) 5 mg PO BID [facility] Last Admin: 06/29/21 08:21 Dose: 5 mg Documented by: MIKKI Carvedilol (Carvedilol 25 Mg Tablet) 25 mg PO BID [facility]; Protocol Last Admin: 06/29/21 08:21 Dose: 25 mg Documented by: MIKKI Cyanocobalamin (Cyanocobalamin (Vitamin B-12) 1,000 Mcg Tablet) 1,000 mcg PO DAILY [facility] Last Admin: 06/29/21 08:22 Dose: 1,000 mcg Documented by: MIKKI Diltiazem HCl (Diltiazem Hcl Cd 240 Mg Cap.Er.Deg) 240 mg PO DAILY [facility]; Protocol Last Admin: 06/29/21 08:21 Dose: 240 mg Documented by: MIKKI Insulin Glargine (Insulin Glargine,Hum.Rec.Anlog 100 Unit/Ml 10 Ml Vial) 20 unit SUBCUT BEDTIME [facility] Last Admin: 06/28/21 21:11 Dose: 20 unit Documented by: SVETLANA Insulin Human Lispro (Insulin Lispro 100 Unit/Ml 3 Ml Vial) 5 unit SUBCUT QIDACHS [facility] Last Admin: 06/29/21 08:20 Dose: 5 unit Documented by: MIKKI Insulin Human Lispro (Insulin Lispro 100 Unit/Ml 3 Ml Vial) 0 unit SUBCUT QIDACHS [facility]; Protocol Last Admin: 06/29/21 08:21 Dose: 4 unit Documented by: HO.CHILDSC Magnesium Oxide (Magnesium Oxide 400 Mg Tablet) 400 mg PO BIDPC [facility] Last Admin: 06/29/21 08:22 Dose: 400 mg Documented by: CHILDSC Medication (No Benzodiazepines) 1 each MISCELLANE DAILY [facility] Pharmacy Consult (Consult Rx Perform Med Rec) 1 each MISCELLANE ONCE PRN PRN Reason: Consult order Phenobarbital (Phenobarbital 15 Mg Tablet) 45 mg PO BID [facility] Stop: 06/29/21 21:01 Last Admin: 06/29/21 08:22 Dose: 45 mg Documented by: CHILDTJ Phenobarbital (Phenobarbital 30 Mg Tablet) 30 mg PO BID [facility] Stop: 07/01/21 21:01 Phenobarbital (Phenobarbital 15 Mg Tablet) 15 mg PO DAILY [facility] Stop: 07/03/21 09:01 Pravastatin Sodium (Pravastatin Sodium 40 Mg Tablet) 40 mg PO BEDTIME [facility] Labs CBC & Chem 7: 06/29/21 03:58 06/29/21 03:58 Labs: Laboratory Results - last 24 hr 06/28/21 06/28/21 06/28/21 12:10 15:46 19:43 MCV MCH MCHC RDW Plt Count MPV Absolute Nucleated RBC Nucleated RBC % (auto) Anion Gap Estim Creat Clear Calc Estimated GFR POC Glucose 365 H* 400 H* 139 H Fasting Glucose Calcium Magnesium Total Bilirubin Direct Bilirubin AST ALT Alkaline Phosphatase Total Protein Albumin 06/28/21 06/29/21 06/29/21 23:42 03:58 03:58 MCV 92.4 MCH 32.3 MCHC 35.0 RDW 13.3 Plt Count 155 L MPV 10.7 Absolute Nucleated RBC 0.000 Nucleated RBC % (auto) 0.0 Anion Gap 11 L Estim Creat Clear Calc 99.2 Estimated GFR > 60 POC Glucose 344 H Fasting Glucose 178 H Calcium 7.9 L Magnesium 1.8 Total Bilirubin 1.1 H Direct Bilirubin 0.6 H AST 59 H ALT 32 Alkaline Phosphatase 135 H D Total Protein 5.3 L D Albumin 3.0 L 06/29/21 07:49 MCV MCH MCHC RDW Plt Count MPV Absolute Nucleated RBC Nucleated RBC % (auto) Anion Gap Estim Creat Clear Calc Estimated GFR POC Glucose 202 H Fasting Glucose Calcium Magnesium Total Bilirubin Direct Bilirubin AST ALT Alkaline Phosphatase Total Protein Albumin Assessment and Plan (1) DKA (diabetic ketoacidosis): Status: Acute (2) Delirium tremens: Status: Acute (3) Atrial fibrillation with rapid ventricular response: Status: Acute (4) Chest pain: Status: Acute Assessment and Plan: 70M presented with chest pain found to be in afib with rvr, alcohol withdrawal, and dka, was treated dwith phenobarb, cardizem, and insulin. gap closed, glucose improved and was downgraded to medical service. DKA resolved, conitnue basal bolus insulin, monitor poc alcohol dependence with alcohol withdrawal and hepatitis phenobarbital, ciwa lfts improved chest pain resolved, troponins negative, echo pending new afib with rvr on cardizem infusion, rate ocntrolled, cardizem po, continue newly started eliquis hypokalemia due to DKA, insulin, hypomagnesemia replace and monitor Quality Stroke Does the patient have a stroke diagnosis?: No VTE Prior VTE?: No VTE Risk Level:: Medical - moderate - high VTE Device Contraindication: Treatment Not Indicated VTE Drug Contraindication: N/A - Med Ordered
[2021-06-29 12:03] LABS: Glucose, Whole Blood 249 mg/dL (60-115)
[2021-06-29 16:01] LABS: Glucose, Whole Blood 251 mg/dL (60-115)
[2021-06-29] MEDS: 0.9 % Sodium Chloride Flush 3 ML SYRINGE IVFLUSH ×2 (16:53→21:37)
[2021-06-29 20:07] LABS: Glucose, Whole Blood 329 mg/dL (60-115)
[2021-06-29] MEDS: Insulin Glargine,Hum.rec.anlog 100 UNIT/ML 10 ML VIAL 20 UNIT SUBCUT (21:29)
[2021-06-30] VITALS (8 sets, daily range): BP systolic 119–167; BP diastolic 59–90; PULSE 73–87; RESP 18–19; TEMP 36.1–36.6; O2SAT 95–97
[2021-06-30 04:53] LABS: Hematocrit 38.7 % (42.0-52.0); Hemoglobin 13.3 g/dl (14.0-18.0); Mean Corpuscular HGB Conc 34.4 g/dl (31.0-36.0); Mean Corpuscular Hemoglobin 32.7 pg (27.0-33.0); Mean Corpuscular Volume 95.1 fL (80.0-98.0); Mean Platelet Volume 10.6 fL (9.4-12.4); Platelet Count 154 X10*3/uL (160-400); Red Blood Count 4.07 X10*6/uL (4.60-5.80); Red Cell Distribution Width 13.6 % (11.0-16.0)
[2021-06-30 05:30] LABS: Anion Gap 13 (12-20); Blood Urea Nitrogen 16 mg/dL (9-16); Calcium 8.2 mg/dL (8.4-10.2); Carbon Dioxide 27 mmol/L (22-29); Chloride 101 mmol/L (96-108); Creatinine Clr Calc Pharmacy 92.4; Estimated Glomerular Filt Rate > 60; Glucose Fasting 178 mg/dL (60-99); Potassium 4.2 mmol/L (3.3-5.1); Sodium 137 mmol/L (135-145)
[2021-06-30 07:21] LABS: Glucose, Whole Blood 245 mg/dL (60-115)
[2021-06-30] MEDS: Insulin Lispro 100 UNIT/ML 3 ML VIAL SUBCUT ×8 (07:42→20:28)
[2021-06-30] MEDS: dilTIAZem HCL CD 240 MG CAP.ER.DEG PO (07:43)
[2021-06-30] MEDS: carvediloL 25 MG TABLET PO ×2 (07:43→20:13)
[2021-06-30] MEDS: 0.9 % Sodium Chloride Flush 3 ML SYRINGE IVFLUSH ×3 (07:43→20:14)
[2021-06-30] MEDS: PHENobarbitaL 30 MG TABLET PO ×2 (07:44→20:13)
[2021-06-30] MEDS: Cyanocobalamin (Vitamin B-12) 1,000 MCG TABLET 1000 MCG PO (07:44)
[2021-06-30] MEDS: Apixaban 5 MG TABLET PO ×2 (07:44→20:13)
[2021-06-30] MEDS: Magnesium Oxide 400 MG TABLET PO ×2 (07:44→16:56)
--- NOTE | 2021-06-30 09:19 | P.PNIM_ITS ---
Subjective Subjective Date of Service: 06/30/21 Interval History: cc: chest pain interval history: resolved Cardiovascular Cardiovascular: Reports no additional cardiovascular complaints Respiratory Respiratory: Reports no additional respiratory complaints Physical Exam Vital Signs: Vital Signs: Last Vital Signs Temp 96.9 F 06/30/21 07:12 Pulse 79 06/30/21 07:43 Resp 18 06/30/21 07:12 BP 134/87 06/30/21 07:43 Pulse Ox 96 06/30/21 07:12 BMI result Body Mass Index 35.6 General: AO X 3, no acute distress Resp:? diminished bilateral, no accessory muscles used CVS: S1,S2,irregular GI: soft, non tender, non distended Neuro:? motor grossly intact, alert Psych: appropriate affect, impaired insight? Objective Data Active Medications Apixaban (Apixaban 5 Mg Tablet) 5 mg PO BID [facility] Last Admin: 06/30/21 07:44 Dose: 5 mg Documented by: COTEMA Carvedilol (Carvedilol 25 Mg Tablet) 25 mg PO BID [facility]; Protocol Last Admin: 06/30/21 07:43 Dose: 25 mg Documented by: JULESEMA Cyanocobalamin (Cyanocobalamin (Vitamin B-12) 1,000 Mcg Tablet) 1,000 mcg PO DAILY [facility] Last Admin: 06/30/21 07:44 Dose: 1,000 mcg Documented by: JULESEMA Diltiazem HCl (Diltiazem Hcl Cd 240 Mg Cap.Er.Deg) 240 mg PO DAILY [facility]; Protocol Last Admin: 06/30/21 07:43 Dose: 240 mg Documented by: MILLIE Insulin Glargine (Insulin Glargine,Hum.Rec.Anlog 100 Unit/Ml 10 Ml Vial) 20 unit SUBCUT BEDTIME [facility] Last Admin: 06/29/21 21:29 Dose: 20 unit Documented by: SVETLANA Insulin Human Lispro (Insulin Lispro 100 Unit/Ml 3 Ml Vial) 5 unit SUBCUT QIDACHS [facility] Last Admin: 06/30/21 07:42 Dose: 5 unit Documented by: MILLIE Insulin Human Lispro (Insulin Lispro 100 Unit/Ml 3 Ml Vial) 0 unit SUBCUT QIDACHS [facility]; Protocol Last Admin: 06/30/21 07:43 Dose: 4 unit Documented by: HO.COTEMA [facility] ([facility] 400 Mg [facility] Admin: 06/30/21 07:44 Dose: 400 mg Documented by: COTEMA Medication (No Benzodiazepines) 1 each MISCELLANE DAILY [facility] Pharmacy Consult (Consult Rx Perform Med Rec) 1 each MISCELLANE ONCE PRN PRN Reason: Consult order Phenobarbital (Phenobarbital 30 Mg Tablet) 30 mg PO BID [facility] Stop: 07/01/21 21:01 Last Admin: 06/30/21 07:44 Dose: 30 mg Documented by: COTEMA Phenobarbital (Phenobarbital 15 Mg Tablet) 15 mg PO DAILY [facility] Stop: 07/03/21 09:01 Pravastatin Sodium (Pravastatin Sodium 40 Mg Tablet) 40 mg PO BEDTIME [facility] Sodium Chloride (0.9 % Sodium Chloride Flush 3 Ml Syringe) 3 ml IVFLUSH QSHIFT [facility] Last Admin: 06/30/21 07:43 Dose: 3 ml Documented by: MILLIE Labs CBC & Chem 7: 06/30/21 04:32 06/30/21 04:32 Labs: Laboratory Results - last 24 hr 06/29/21 06/29/21 06/29/21 11:27 15:57 20:03 MCV MCH MCHC RDW Plt Count MPV Absolute Nucleated RBC Nucleated RBC % (auto) Anion Gap Estim Creat Clear Calc Estimated GFR POC Glucose 249 H 251 H 329 H Fasting Glucose Calcium 06/30/21 06/30/21 06/30/21 04:32 04:32 07:15 MCV 95.1 MCH 32.7 MCHC 34.4 RDW 13.6 Plt Count 154 L MPV 10.6 Absolute Nucleated RBC 0.000 Nucleated RBC % (auto) 0.0 Anion Gap 13 Estim Creat Clear Calc 92.4 Estimated GFR > 60 POC Glucose 245 H Fasting Glucose 178 H Calcium 8.2 L Assessment and Plan (1) DKA (diabetic ketoacidosis): Status: Acute (2) Delirium tremens: Status: Acute (3) Atrial fibrillation with rapid ventricular response: Status: Acute (4) Chest pain: Status: Acute Assessment and Plan: 70M presented with chest pain found to be in afib with rvr, alcohol withdrawal, and dka, was treated dwith phenobarb, cardizem, and insulin. gap closed, glucose improved and was downgraded to medical service. DKA resolved, continue basal bolus insulin, monitor poc alcohol dependence with alcohol withdrawal and hepatitis still with some tremurlousness, restlessness, continue phenobarbital, ciwa lfts improved, monitor chest pain resolved, troponins negative, echo pending new afib/flutter with rvr rate now controlled, changed to cardizem po, continue newly started eliquis hypokalemia due to DKA, insulin, hypomagnesemia replaced Quality Stroke Does the patient have a stroke diagnosis?: No VTE Prior VTE?: No VTE Risk Level:: Medical - moderate - high VTE Device Contraindication: Treatment Not Indicated VTE Drug Contraindication: N/A - Med Ordered
[2021-06-30 12:58] LABS: Glucose, Whole Blood 253 mg/dL (60-115)
--- NOTE | 2021-06-30 13:40 | MHC.CLN ---
NUTRITION VISITED WITH PATIENT TO ASK ABOUT REPORTED WEIGHT LOSS. VARIANCE IN CURRENT WEIGHT WITH PHYSICAL OBSERVANCE OF WEIGHT LIKELY 240.5# (06/27/21=109.3 KG). PATIENT REPORTS THAT HE HAS LOST WEIGHT DUE TO DRINKING AND REPORTS [id number]#. PATIENT NOT WEARING SHIRT AND OBSERVED THAT PATIENT IS OBESE. VARIABLE INTAKE, 50-100%.
[2021-06-30 16:53] LABS: Glucose, Whole Blood 221 mg/dL (60-115)
[2021-06-30 20:08] LABS: Glucose, Whole Blood 216 mg/dL (60-115)
[2021-06-30] MEDS: Insulin Glargine,Hum.rec.anlog 100 UNIT/ML 10 ML VIAL 20 UNIT SUBCUT (20:27)
--- NOTE | 2021-06-30 21:11 | PC.NURSE ---
REceived report from previous RN that pt has been taking his Cardiac leads frequently and been replaced, seen pt at start of the shift getting anxious, again removed his cardiac leads and refusing to put it back, as per tele monitor last rhythm was at 1915 and SR on the 80s, bakery machine mechanic was paged to aid in conversing with pt, pt is alert and oriented x3, has a lot of mixed stories in life and showing anxiety , weepy and insistently refused to have the telemonitor again as he said he gets forgetfull when waking up and gets tangled with it, explained to the pt all safety measures and importance of care, Dr. Benjamin was updated and discont'd vehicle monitor technician.
--- NOTE | 2021-06-30 22:31 | PC.NURSE ---
Patient was seen by radhaer getting back to his bed after bathroom use and fell on his knees and hs left side next to his bed, an RN went to the pt's room to help pt get up on his feet and back to bed, vitals are WNL,pt denies any pain, no bruise noted pt is alert and oriented the whole time of incident, Dr. Rodgers was notified , Nursing doping supervisor Elvin was made aware. Bed alarm put on and instructed pt not to walk around the room alone.
[2021-07-01] VITALS: BP 157/81; PULSE 85; RESP 18; TEMP 36.2; O2SAT 95
[2021-07-01 03:59] VITALS: BP 164/87; PULSE 92; RESP 18; TEMP 36.2; O2SAT 94
[2021-07-01 06:18] LABS: Hematocrit 40.9 % (42.0-52.0); Mean Corpuscular HGB Conc 34.2 g/dl (31.0-36.0); Mean Corpuscular Hemoglobin 32.5 pg (27.0-33.0); Mean Corpuscular Volume 94.9 fL (80.0-98.0); Mean Platelet Volume 10.5 fL (9.4-12.4); Platelet Count 169 X10*3/uL (160-400); Red Blood Count 4.31 X10*6/uL (4.60-5.80); Red Cell Distribution Width 13.9 % (11.0-16.0); White Blood Count 10.1 X10*3/uL (4.8-10.8)
[2021-07-01 06:42] LABS: Alanine Aminotransferase 88 U/L (0-40); Albumin Level 3.4 g/dL (3.5-5.0); Alkaline Phosphatase 194 U/L (39-117); Anion Gap 11 (12-20); Aspartate Amino Transferase 163 U/L (5-37); Bilirubin Direct 0.6 mg/dL (0.0-0.5); Bilirubin Total 1.1 mg/dL (0.0-1.0); Blood Urea Nitrogen 14 mg/dL (9-16); Calcium 8.4 mg/dL (8.4-10.2); Carbon Dioxide 27 mmol/L (22-29); Chloride 100 mmol/L (96-108); Creatinine Clr Calc Pharmacy 94.5; Estimated Glomerular Filt Rate > 60; Glucose Fasting 253 mg/dL (60-99); Potassium 4.2 mmol/L (3.3-5.1); Sodium 134 mmol/L (135-145)
[2021-07-01 07:22] VITALS: BP 169/91; PULSE 84; RESP 18; TEMP 37.1; O2SAT 95
[2021-07-01 07:44] LABS: Glucose, Whole Blood 318 mg/dL (60-115)
[2021-07-01] MEDS: Insulin Lispro 100 UNIT/ML 3 ML VIAL SUBCUT ×4 (08:19→12:09)
[2021-07-01] MEDS: dilTIAZem HCL CD 240 MG CAP.ER.DEG PO (08:21)
[2021-07-01] MEDS: PHENobarbitaL 30 MG TABLET PO (08:22)
[2021-07-01] MEDS: Apixaban 5 MG TABLET PO (08:22)
[2021-07-01] MEDS: Cyanocobalamin (Vitamin B-12) 1,000 MCG TABLET 1000 MCG PO (08:22)
[2021-07-01] MEDS: carvediloL 25 MG TABLET PO (08:23)
[2021-07-01] MEDS: Magnesium Oxide 400 MG TABLET PO (08:23)
[2021-07-01] MEDS: 0.9 % Sodium Chloride Flush 3 ML SYRINGE IVFLUSH (08:23)
--- NOTE | 2021-07-01 11:00 | CA_ITS ---
Transthoracic Echocardiogram Patient (Last, First, Middle): Abimael Georges A Gender: Male Date of : 1950 Age: 70 Procedure Date: 07/01/2021 Procedure Type: Transthoracic Echocardiogram Location: S3E Height: 175.26 cm Weight: 108.86 kg BSA: 2.23 m2 Heart Rate: bpm BP: 111 / 55 mmHg Director Retirement: Referring MD: Ed Meredith MD Electron Beam Welder Setter: Xavier Menon MD Symptoms: afib Study Quality: Fair ECG Rhythm: Atrial Fibrillation Conclusions: - 1. Moderate LVH with severely reduced LV ejection fraction of 20-25% 2. Moderate left atrial enlargement 3. Mild mitral regurgitation 4. Normal RV systolic pressure 5. No pericardial effusion Findings Procedure Information Contrast agent, definity, is being given per protocol without apparent complications. Left Ventricle Normal left ventricular cavity size. There is moderately increased left ventricular wall thickness. The left ventricular systolic function is severely decreased. The visually estimated ejection fraction is between 20 25%. Regional wall motion abnormalities can not be excluded due to suboptimal endocardial definition. There is paradoxical septal motion consistent with a left bundle branch block. Diastolic function is indeterminate on the basis of available data. Right Ventricle Mildly increased right ventricular cavity size. There is normal right ventricular systolic function. Atria The left atrium is moderately dilated. Interatrial shunt cannot be excluded. The right atrium is mildly dilated. Aortic Valve There is mild thickening of the aortic valve. There is no aortic valve stenosis. There is trace (trivial) aortic valve regurgitation. Mitral Valve There is mild anterior and posterior mitral leaflet thickening. There is mild mitral annular calcification. There is mild mitral valve regurgitation. There is no mitral valve stenosis. Pulmonic Valve The pulmonic valve was not well visualized. Tricuspid Valve The right ventricular systolic pressure is 16 mmHg. There is no evidence of pulmonary hypertension. Great Vessels All visible segments of the aorta are normal in size. The pulmonary artery was not well visualized. Venous The inferior vena cava collapses greater than 50% with inspiration. Inferior vena cava flow is normal. Pericardium/Pleural There is no evidence of pericardial effusion. Prior Study Comparison Changes noted compared to prior study. LV systolic function is reduced Measurements 2D Linear Measurements IVSd: 1.62 0.6-0.9/0.6-1.0 cm LVIDd: 5.26 3.9-5.3/4.2-5.9 cm LVIDd Index: 2.36 2.4-3.2/2.2-3.1 cm/m2 LVIDs: 4.37 2.0-3.6 cm LVPWd: 1.59 0.7-1.1 cm Ao Root: 3.60 2.1-3.5 cm LA Diam: 5.30 2.7-3.8/3.0-4.0 cm LAIDs Index: 2.38 1.5-2.3 cm/m2 LV Mass: 480.60 67-162/88-224 g LV Mass Index: 215.51 43-95/49-115 g/m2 LVOT Diam: 2.10 3.0+(-)1.3 cm 2D Systolic Function EF 4C: 5.67 >55% EF 2C: 27.50 >55% EF BiP: 10.70 >55% Mitral Valve MV Pk E: 0.94 MV Decel Time: 203.00 E'Lateral: 11.30 E'Medial: 4.24 E/E' Med: 22.10 E/E' Lat: 8.30 PHT: 60.00 MVA PHT: 3.67 Decel [place]: 4.61 Aortic Valve AoV Pk Riley: 1.25 AoV Mn Riley: 0.81 AoV VTI: 0.28 AoV Pk Grad: 6.00 Aov Mn Grad: 3.00 ALEXEI Cont.VTI: 1.66 LVOT LVOT Pk Riley: 0.77 LVOT Mn Riley: 0.43 LVOT VTI: 0.13 LVOT Pk Grad: 2.00 LVOT Mn Grad: 1.00 LVOT Diam: 2.10 LVOT Area: 3.46 Diastolic Function MV Pk E: 0.94 E'Medial: 4.24 E/E' Med: 22.10 E' Laterial: 11.30 E/E' Lat: 8.30 Right Ventricle TAPSE (mm): 28.00 TVS' Riley: 9.00 Tricuspid Valve TR Pk Riley: 1.80 TR Pk Grad: 13.00 RA Press: 3.00 RVSP: 16.00 Great Vessels Aorta Ao Root-2D: 3.60 2.0-3.7 cm Ao Asc: 3.80 2.1-3.4 cm Pulmonary Valve PV Pk Riley: 0.86 Peak PV Grad: 3.00 Updated in Other Vendor System with Status of Final Xavier Menon MD electronically signed on 07/01/2021 3:06:52 PM with status of Final
[2021-07-01 11:23] VITALS: BP 137/84; PULSE 78; RESP 18; TEMP 36.8; O2SAT 96
--- NOTE | 2021-07-01 11:26 | P.DS_ITS ---
DS: Providers Provider Date of Service: 07/01/21 Date of admission: 06/27/21 15:08 Primary care physician: Matthias Marx MD DS: Diagnosis Discharge Diagnosis (1) DKA (diabetic ketoacidosis): Status: Acute (2) Delirium tremens: Status: Acute (3) Atrial fibrillation with rapid ventricular response: Status: Acute (4) Chest pain: Status: Acute DS: Summary Hospital Course Hospital Course: patient was admitted for DKA complicated by new onset atrial fibrillation with rapid ventricular response and alcohol dependence with withdrawal and mild hep atitis. he was treated with insulin infusion and anion gap close, glucose became better controlled and he was transitioned to subcutaneous. patient was poorly compliant at home, son reports that he will insure compliance. for his new onset atrial fibrillation, he was continued on his coreg and cardizem was added, he is now in atrial flutter, rate controlled and asymptomatic, echo showed EF of 25% (likely chronic, though patient poor historian), moderate left atrial enlargement . he was started on eliquis, there is certainly a concern for fall risk and significant bleeding, however, at this time would consider risks of withholding anticoagulation to be greater than risks of continuing. he and his son were offered group home facility, however, they have declined, they are aware of fall risk. for his alcohol withdrawal he was treated with phenobarbital and symptoms have resolved. Time Spent with Patient Time attestation: Total time spent providing and/or coordinating discharge services: Discharge coordination time: Greater than 30 minutes Quality: Stroke Does the patient have a stroke diagnosis?: No Physical Exam Vital Signs: Vital Signs: Last Vital Signs Temp 98.2 F 07/01/21 11:23 Pulse 78 07/01/21 11:23 Resp 18 07/01/21 11:23 BP 137/84 07/01/21 11:23 Pulse Ox 96 07/01/21 11:23 BMI result Body Mass Index 35.6 General: AO X 3, no acute distress Resp:? diminished bilateral, no accessory muscles used CVS: S1,S2,irregular GI: soft, non tender, non distended Neuro:? motor grossly intact, alert Psych: appropriate affect, impaired insight? DS: Data Data Completed and Pending Labs on day of discharge: Laboratory Results - last 24 hr 06/30/21 06/30/21 06/30/21 11:39 16:47 20:03 WBC RBC Hgb Hct MCV MCH MCHC RDW Plt Count MPV Absolute Nucleated RBC Nucleated RBC % (auto) Sodium Potassium Chloride Carbon Dioxide Anion Gap BUN Creatinine Estim Creat Clear Calc Estimated GFR POC Glucose 253 H 221 H 216 H Fasting Glucose Calcium Total Bilirubin Direct Bilirubin AST ALT Alkaline Phosphatase Total Protein Albumin 07/01/21 07/01/21 07/01/21 05:57 05:57 07:21 WBC 10.1 RBC 4.31 L Hgb 14.0 Hct 40.9 L MCV 94.9 MCH 32.5 MCHC 34.2 RDW 13.9 Plt Count 169 MPV 10.5 Absolute Nucleated RBC 0.000 Nucleated RBC % (auto) 0.0 Sodium 134 L Potassium 4.2 Chloride 100 Carbon Dioxide 27 Anion Gap 11 L BUN 14 Creatinine 0.86 Estim Creat Clear Calc 94.5 Estimated GFR > 60 POC Glucose 318 H Fasting Glucose 253 H D Calcium 8.4 Total Bilirubin 1.1 H Direct Bilirubin 0.6 H AST 163 H ALT 88 H Alkaline Phosphatase 194 H D Total Protein 6.0 L Albumin 3.4 L Discharge Plan Discharge Patient Disposition: Home, Self-Care Discharge Diagnosis: DKA, etoh withdrawal Referrals: Name,MD Matthias [Primary Care Provider] - 1 Week Discharge Medications: New Eliquis 5 mg Tablet 5 mg PO BID Qty: 60 RF: 0 diltiazem HCl 240 mg Capsule,Extended Release 24hr 240 mg PO DAILY Qty: 30 RF: 0 Continued hydralazine 10 mg tablet 1 tab PO BID RF: 0 carvedilol 25 mg tablet 1 tab PO BID RF: 0 clonidine HCl 0.1 mg tablet 1 tab PO BID RF: 0 pravastatin 40 mg tablet 1 tab PO BEDTIME RF: 0 glipizide 10 mg tablet 1 tab PO BID RF: 0 cyanocobalamin (vitamin B-12) 1,000 mcg tablet 1 tab PO QAM RF: 0 chlorthalidone 25 mg tablet 1 tab PO QAM RF: 0 metformin 1,000 mg tablet 1 tab PO BID RF: 0 betamethasone dipropionate 0.05 % ointment 1 appl topical BID RF: 0 lisinopril 40 mg tablet 1 tab PO QAM RF: 0 Discontinued aspirin 81 mg tablet,delayed release (DR/EC) 1 tab PO QPM RF: 0 amlodipine 10 mg tablet 1 tab PO QAM RF: 0 Discharge Orders: Discharge Order (Routine); Ordered 07/01/21 Ordered By: John Johnson Diet: diabetic diet Activity on Discharge: As tolerated Stand Alone Forms: Patient Portal Discharge page Care Plan Goals: reocvery Health Concerns: fall risk, afib, dm, etoh dependence Plan of Treatment: started on eliquis, cardizem, avoid alcohol, fall precautions, follow up wtih pcp Assessment: see above Discharge Date/Time: 07/01/21 15:15
--- NOTE | 2021-07-01 11:49 | MHC.CM.PN ---
Patient has been medically cleared for dc to home today, self care. Patient's [employer] services should resume as before. Second IMM addressed with Patient at bedside and original has been given to Patient and a copy has been placed on the chart.
[2021-07-01 11:52] LABS: Glucose, Whole Blood 279 mg/dL (60-115)
== END 2021-07-01 15:15 | disposition home or self-care (01) | DRG 638 ==
LOC: HO.ED 12:47 → HO.EDOVER 15:20 → HO.S3 06-28 13:08
PROVIDERS: Admitting Provider Internal Medicine Pulmonary Disease; Emergency Provider Emergency Medicine; PCP Internal Medicine Geriatric Medicine; Visit Provider Internal Medicine
DX: E11.10 Type 2 diabetes mellitus with ketoacidosis without coma (principal); F10.231 Alcohol dependence with withdrawal delirium; I50.22 Chronic systolic (congestive) heart failure; I48.91 Unspecified atrial fibrillation; K75.9 Inflammatory liver disease, unspecified; E87.6 Hypokalemia; Z20.822 Contact with and (suspected) exposure to COVID-19; Z23 Encounter for immunization; Z79.01 Long term (current) use of anticoagulants; Z79.84 Long term (current) use of oral hypoglycemic drugs; Z79.899 Other long term (current) drug therapy
CPT/HCPCS: 36415; 71045; 80048; 80076; 82009; 82040; 82803; 82947; 83735; 83880; 84100; 84443; 84484; 85025; 85027; 85610; 85730; 87635; 90686; 93005; 93306; 96361; 96365; 96375; 96376; 99285; J2060; J2560; Q9957

== ENCOUNTER 2021-09-22 12:16 | Emergency (ER) | payer MEDICARE, SELFPAY ==
--- NOTE | ~2021-09-22 | XR_ITS ---
EXAMINATION: XR CHEST CLINICAL INFORMATION: Shortness of breath and cough COMPARISON: 06/27/2021. TECHNIQUE: Frontal view of the chest was obtained. FINDINGS: The cardiomediastinal silhouette is stable. No vascular congestion or pulmonary edema. The lungs are mildly hypoexpanded. No consolidation or effusion. XR/XR chest 1V IMPRESSION: No pulmonary edema. No focal pneumonia.
--- NOTE | ~2021-09-22 | CT_ITS ---
EXAMINATION: CT HEAD WITHOUT CONTRAST CLINICAL INFORMATION: Fall. Anticoagulation. COMPARISON: 01/06/2018 TECHNIQUE: Contiguous axial imaging was performed from the skull base to vertex without intravenous administration of contrast. This CT examination was performed using dose optimization techniques as appropriate, variously including the following: *Automated exposure control *Adjustment of mA and/or kV according to patient size (this includes techniques or standardized protocols for targeted exams where dose is matched to indication/reason for exam; i.e. extremities or head) *Use of iterative reconstruction technique DLP: 716 mGy-cm FINDINGS: There is no evidence of acute intracranial hemorrhage or territorial infarction. No abnormal mass effect or midline shift is seen. Kw[place] to white matter differentiation is well preserved. No extra-axial fluid collections are identified. There is commensurate prominence of the sulcal spaces and ventricles consistent with mild volume loss. There are few scattered chronic small vessel ischemic changes within the periventricular white matter which are stable compared to prior. No scalp hematoma or calvarial fracture. The mastoid air cells and visualized portions of the paranasal sinuses are well aerated. CT/CT head/brain wo con IMPRESSION: No intracranial hemorrhage.
[2021-09-22 12:18] VITALS: BP 150/88; PULSE 86; RESP 18; TEMP 36.7; O2SAT 96; BMI 33.0
--- NOTE | 2021-09-22 12:23 | ECG_ITS ---
Test Reason : SHORTNESS OF BREATH Blood Pressure : / mmHG Vent. Rate : 110 BPM Atrial Rate : 000 BPM P-R Int : 000 ms QRS Dur : 206 ms QT Int : 446 ms P-R-T Axes : 000 -42 131 degrees QTc Int : 603 ms Atrial fibrillation with rapid ventricular response Left axis deviation Left bundle branch block Abnormal ECG When compared with ECG of 27-JUN-2021 12:52, No significant change was found Referred By: Generic ED Physician Electronically Signed By:ISAEL JOYCE MD
[2021-09-22 12:43] LABS: MANUAL DIFF FLAG NO
--- NOTE | 2021-09-22 12:52 | ED.GENADULT ---
HPI - General Adult General Chief complaint: General Medical Stated complaint: weakness/feet swollen Time Seen by Provider: 09/22/21 12:42 Source: patient and family (son) Mode of arrival: ambulatory Limitations: no limitations History of Present Illness HPI narrative: this is 70 years old patient with history of atrial fibrillation anticoagulated with Eliquis, also history of alcohol abuse presented to the emergency department with a chief complaint of generalized weakness malaise shortness of breath on exertion legs edema. He lives by itself was brought here by the son. He stated that he has not been drinking since June. Onset (ago): day(s) (4) Radiation: non-radiation Severity: moderate Quality: dull Pain Consistency: constant Relieving factors: none Exacerbating factors: none Related Data Home Medications Medication Instructions Recorded Confirmed betamethasone dipropionate 0.05 % 1 appl TOPICAL BID 06/27/21 06/27/21 topical ointment carvedilol 25 mg tablet 1 tab PO BID 06/27/21 06/27/21 chlorthalidone 25 mg tablet 1 tab PO QAM 06/27/21 06/27/21 clonidine HCl 0.1 mg tablet 1 tab PO BID 06/27/21 06/27/21 cyanocobalamin (vitamin B-12) 1 tab PO QAM 06/27/21 06/27/21 1,000 mcg tablet glipizide 10 mg tablet 1 tab PO BID 06/27/21 06/27/21 hydralazine 10 mg tablet 1 tab PO BID 06/27/21 06/27/21 lisinopril 40 mg tablet 1 tab PO QAM 06/27/21 06/27/21 metformin 1,000 mg tablet 1 tab PO BID 06/27/21 06/27/21 pravastatin 40 mg tablet 1 tab PO BEDTIME 06/27/21 06/27/21 Previous Rx's Medication Instructions Recorded apixaban 5 mg tablet (Eliquis) 5 mg PO BID #60 tab 07/01/21 diltiazem HCl 240 mg 240 mg PO DAILY #30 cap 07/01/21 capsule,extended release 24 hr furosemide 20 mg tablet (Lasix) 20 mg PO DAILY #10 tab 09/22/21 Allergies Allergy/AdvReac Type Severity Reaction Status Date / Time No Known Allergies Allergy Verified 09/22/21 12:18 Review of Systems Constitutional: Constitutional: Reports no additional constitutional complaints Eyes: Eyes: Reports no additional eye complaints Respiratory: Respiratory: Reports no additional respiratory complaints and Reports no additional respiratory complaints Gastrointestinal: Gastrointestinal: Reports no additional gastrointestinal complaints [facility] Past Medical History Medical History (Updated 09/22/21 @ 15:29 by Yeison Mcgovern MD) Chronic systolic CHF (congestive heart failure) Diabetes Social History Social History Household Members: None Housing: Apartment Do you presently have visiting nurse or other home services: Yes Alcohol intake: current Alcohol intake frequency: 3 or more drinks per day Alcohol type: hard liquor Patient Tobacco Use Status: Former Tobacco user Advance Directives: Yes Advance Directives on File: Yes Advance Directives Date on File: 06/27/21 service: No Current occupational status: retired Physical Exam ED Vital Signs: Vital Signs - 24 hr 09/22/21 12:18 Temperature 98.1 F Pulse Rate 86 Respiratory Rate 18 Blood Pressure 150/88 H Pulse Oximetry 96 BMI result Body Mass Index 33.0 Const General: cooperative and no acute distress Nutritional Appearance: average body habitus and well nourished Limitations: no limitations HENMT Head: Yes normal to inspection Face and sinus: Yes normal facial exam Mouth: Normal oral and palatal mucosa present Throat: Yes posterior oropharynx normal Neck Neck: Yes normal visual inspection and Yes full ROM Chest Chest palpation & inspection: normal inspection of the chest Resp Effort & Inspection: normal respiratory effort and able to speak in complete sentences Auscultation: clear to auscultation bilaterally Cardio Jugular venous distension: no JVD Rhythm: abnormal rhythm irregularly irregular GI Inspection: Yes normal to inspection Palpation (GI): Soft to palpation, nontender and no guarding Extrem General: Yes edema (1-2 plus) Course Reevaluation(s) Reevaluation #1: I re-examined the patient the 15:20 he is feeling much better, his O2 sat is 96%, he is afebrile. His blood sugar was initially elevated at 535 but he had normal anion gap, the blood sugar came down to 391. His BNP was also elevated at 790 but the chest x-ray was clear without clinical evidence of congestive heart failure. It is reasonable to start the patient in low dose of diuretic, I will start him on 20 mg a Lasix daily. He very comfortable with the plan you feel well a to go home. I arranged VNA services with test case developer .I sent a tiger text message to his PCP Dr Matthias Marx,he texted me back will have his nurse to call the pt for follow up appointment ,he also told me that he miss many appointments. I spoke also with the son Abimael Warren [phone] he will make sure the pt will make the appointment for follow up Time: 15:22 Medical Decision Making Lab Data Result diagrams: 09/22/21 12:38 09/22/21 12:38 Labs: Lab Results 09/22/21 09/22/21 09/22/21 Range/Units 12:37 12:38 12:38 WBC 11.3 H (4.8-10.8) X10*3/uL RBC 5.27 D (4.60-5.80) X10*6/uL Hgb 15.6 (14.0-18.0) g/dl Hct 45.7 (42.0-52.0) % MCV 86.7 (80.0-98.0) fL MCH 29.6 (27.0-33.0) pg MCHC 34.1 (31.0-36.0) g/dl RDW 13.1 (11.0-16.0) % Plt Count 259 D (160-400) X10*3/uL MPV 11.2 (9.4-12.4) fL Immature Gran % (Auto) 0.4 (0.0-0.4) % Neut % (Auto) 69.7 (45-73) % Lymph % (Auto) 18.7 L (20-40) % Peach % (Auto) 7.8 (2-11) % Eos % (Auto) 2.8 (0-4) % Baso % (Auto) 0.6 (0-2) % Lymph # (Auto) 2.1 (1.2-4.9) X10*3/uL Peach # (Auto) 0.9 (0.1-1.2) X10*3/uL Eos # (Auto) 0.3 (0.0-0.4) X10*3/uL Baso # (Auto) 0.1 (0.0-0.2) X10*3/uL Abs Immat Gran (auto) 0.04 H (0.00-0.03) X10*3/uL Absolute Neuts (auto) 7.9 (2.0-8.3) x10*3/uL Absolute Nucleated RBC 0.000 (0.0-0.012) X10*3/uL Nucleated RBC % (auto) 0.0 (0.0-0.2) /100WBC Sodium 135 (135-145) mmol/L Potassium 4.3 (3.3-5.1) mmol/L Chloride 94 L (96-108) mmol/L Carbon Dioxide 33 H (22-29) mmol/L Anion Gap 12 (12-20) BUN 16 (9-16) mg/dL Creatinine 1.13 (0.5-1.4) mg/dL Estim Creat Clear Calc 77.9 Estimated GFR > 60 POC Glucose (60-115) mg/dL Random Glucose 535 H* (60-115) mg/dL Calcium 9.6 D (8.4-10.2) mg/dL Total Bilirubin (0.0-1.0) mg/dL Direct Bilirubin (0.0-0.5) mg/dL AST (5-37) U/L ALT (0-40) U/L Alkaline Phosphatase (39-117) U/L Troponin I High Sens (<3.5-35.0) ng/L B-Natriuretic Peptide (<100) pg/mL Total Protein (6.5-8.0) g/dL Albumin (3.5-5.0) g/dL Urine Color Urine Appearance Urine pH (5.0-8.0) Ur Specific [place] (1.005-1.025) Urine Protein (NEG-TRACE) MG/DL Urine Glucose (UA) (NEG) MG/DL Urine Ketones (NEG) MG/DL Urine Blood (NEG) Urine Nitrite (NEG) Ur Leukocyte Esterase (NEG) Urine RBC (0) /HPF Urine WBC (0-4) /HPF Ur Squamous Epith Cells /LPF Urine Bacteria /LPF Ethyl Alcohol mg/dL COVID-19 (BRAVO) Negative (Negative) COVID-19 Clin Com See Note 09/22/21 09/22/21 09/22/21 Range/Units 12:38 13:02 13:02 WBC (4.8-10.8) X10*3/uL RBC (4.60-5.80) X10*6/uL Hgb (14.0-18.0) g/dl Hct (42.0-52.0) % MCV (80.0-98.0) fL MCH (27.0-33.0) pg MCHC (31.0-36.0) g/dl RDW (11.0-16.0) % Plt Count (160-400) X10*3/uL MPV (9.4-12.4) fL Immature Gran % (Auto) (0.0-0.4) % Neut % (Auto) (45-73) % Lymph % (Auto) (20-40) % Peach % (Auto) (2-11) % Eos % (Auto) (0-4) % Baso % (Auto) (0-2) % Lymph # (Auto) (1.2-4.9) X10*3/uL Peach # (Auto) (0.1-1.2) X10*3/uL Eos # (Auto) (0.0-0.4) X10*3/uL Baso # (Auto) (0.0-0.2) X10*3/uL Abs Immat Gran (auto) (0.00-0.03) X10*3/uL Absolute Neuts (auto) (2.0-8.3) x10*3/uL Absolute Nucleated RBC (0.0-0.012) X10*3/uL Nucleated RBC % (auto) (0.0-0.2) /100WBC Sodium (135-145) mmol/L Potassium (3.3-5.1) mmol/L Chloride (96-108) mmol/L Carbon Dioxide (22-29) mmol/L Anion Gap (12-20) BUN (9-16) mg/dL Creatinine (0.5-1.4) mg/dL Estim Creat Clear Calc Estimated GFR POC Glucose (60-115) mg/dL Random Glucose (60-115) mg/dL Calcium (8.4-10.2) mg/dL Total Bilirubin 0.8 (0.0-1.0) mg/dL Direct Bilirubin 0.3 (0.0-0.5) mg/dL AST 14 D (5-37) U/L ALT 11 (0-40) U/L Alkaline Phosphatase 169 H (39-117) U/L Troponin I High Sens 23.2 D (<3.5-35.0) ng/L B-Natriuretic Peptide 790 H (<100) pg/mL Total Protein 6.7 (6.5-8.0) g/dL Albumin 3.7 (3.5-5.0) g/dL Urine Color Urine Appearance Urine pH (5.0-8.0) Ur Specific [place] (1.005-1.025) Urine Protein (NEG-TRACE) MG/DL Urine Glucose (UA) (NEG) MG/DL Urine Ketones (NEG) MG/DL Urine Blood (NEG) Urine Nitrite (NEG) Ur Leukocyte Esterase (NEG) Urine RBC (0) /HPF Urine WBC (0-4) /HPF Ur Squamous Epith Cells /LPF Urine Bacteria /LPF Ethyl Alcohol < 10 mg/dL COVID-19 (BRAVO) (Negative) COVID-19 Clin Com 09/22/21 09/22/21 Range/Units 14:28 15:09 WBC (4.8-10.8) X10*3/uL RBC (4.60-5.80) X10*6/uL Hgb (14.0-18.0) g/dl Hct (42.0-52.0) % MCV (80.0-98.0) fL MCH (27.0-33.0) pg MCHC (31.0-36.0) g/dl RDW (11.0-16.0) % Plt Count (160-400) X10*3/uL MPV (9.4-12.4) fL Immature Gran % (Auto) (0.0-0.4) % Neut % (Auto) (45-73) % Lymph % (Auto) (20-40) % Peach % (Auto) (2-11) % Eos % (Auto) (0-4) % Baso % (Auto) (0-2) % Lymph # (Auto) (1.2-4.9) X10*3/uL Peach # (Auto) (0.1-1.2) X10*3/uL Eos # (Auto) (0.0-0.4) X10*3/uL Baso # (Auto) (0.0-0.2) X10*3/uL Abs Immat Gran (auto) (0.00-0.03) X10*3/uL Absolute Neuts (auto) (2.0-8.3) x10*3/uL Absolute Nucleated RBC (0.0-0.012) X10*3/uL Nucleated RBC % (auto) (0.0-0.2) /100WBC Sodium (135-145) mmol/L Potassium (3.3-5.1) mmol/L Chloride (96-108) mmol/L Carbon Dioxide (22-29) mmol/L Anion Gap (12-20) BUN (9-16) mg/dL Creatinine (0.5-1.4) mg/dL Estim Creat Clear Calc Estimated GFR POC Glucose 391 H* (60-115) mg/dL Random Glucose (60-115) mg/dL Calcium (8.4-10.2) mg/dL Total Bilirubin (0.0-1.0) mg/dL Direct Bilirubin (0.0-0.5) mg/dL AST (5-37) U/L ALT (0-40) U/L Alkaline Phosphatase (39-117) U/L Troponin I High Sens (<3.5-35.0) ng/L B-Natriuretic Peptide (<100) pg/mL Total Protein (6.5-8.0) g/dL Albumin (3.5-5.0) g/dL Urine Color YELLOW Urine Appearance CLEAR Urine pH 5.5 (5.0-8.0) Ur Specific [place] <= 1.005 (1.005-1.025) Urine Protein 1+ H (NEG-TRACE) MG/DL Urine Glucose (UA) >=1000 H (NEG) MG/DL Urine Ketones NEG (NEG) MG/DL Urine Blood NEG (NEG) Urine Nitrite NEG (NEG) Ur Leukocyte Esterase NEG (NEG) Urine RBC 0-2 (0) /HPF Urine WBC 0-2 (0-4) /HPF Ur Squamous Epith Cells NONE /LPF Urine Bacteria NONE /LPF Ethyl Alcohol mg/dL COVID-19 (BRAVO) (Negative) COVID-19 Clin Com Imaging Data Chest x-ray: Radiologist's impression: XR CHEST CLINICAL INFORMATION: Shortness of breath and cough COMPARISON: 06/27/2021. TECHNIQUE: Frontal view of the chest was obtained. FINDINGS: The cardiomediastinal silhouette is stable. No vascular congestion or pulmonary edema. The lungs are mildly hypoexpanded. No consolidation or effusion. XR/XR chest 1V IMPRESSION: No pulmonary edema. No focal pneumonia. ? Dictated By: Santos Mead MD Signed By: <Electronically signed by Santos Mead MD in OV> 09/22/[address] scan - head: Radiologist's impression: s matched to indication/reason for exam; i.e. extremities or head) *Use of iterative reconstruction technique DLP: 716 mGy-cm FINDINGS: There is no evidence of acute intracranial hemorrhage or territorial infarction. No abnormal mass effect or midline shift is seen. Kwok to white matter differentiation is well preserved. No extra-axial fluid collections are identified. There is commensurate prominence of the sulcal spaces and ventricles consistent with mild volume loss. There are few scattered chronic small vessel ischemic changes within the periventricular white matter which are stable compared to prior. No scalp hematoma or calvarial fracture. The mastoid air cells and visualized portions of the paranasal sinuses are well aerated. ? CT/CT head/brain wo con IMPRESSION: No intracranial hemorrhage. Dictated By: Santos Mead MD Signed By: <Electronically signed by Santos Mead MD in OV> 09/22/21 1532 DD/ 1340 TD/TT:? Supervising Chef: CHRISTEN ECG Data Attestation: I personally reviewed and interpreted this ECG as follows: Pacemaker model: atrial Fib RBBB 110 (old RBBB) Discharge Plan Discharge Clinical Impression: Hyperglycemia, Edema of both lower extremities Patient Disposition: Home, Self-Care Prescriptions: New furosemide [Lasix] 20 mg tablet 20 mg PO DAILY Qty: 10 0RF No Action hydralazine 10 mg tablet 1 tab PO BID 0RF carvedilol 25 mg tablet 1 tab PO BID 0RF clonidine HCl 0.1 mg tablet 1 tab PO BID 0RF pravastatin 40 mg tablet 1 tab PO BEDTIME 0RF glipizide 10 mg tablet 1 tab PO BID 0RF cyanocobalamin (vitamin B-12) 1,000 mcg tablet 1 tab PO QAM 0RF chlorthalidone 25 mg tablet 1 tab PO QAM 0RF metformin 1,000 mg tablet 1 tab PO BID 0RF betamethasone dipropionate 0.05 % ointment 1 appl topical BID 0RF Protocol: Apply to: Apply to: AFFECTED AREAS lisinopril 40 mg tablet 1 tab PO QAM 0RF Eliquis 5 mg Tablet 5 mg PO BID Qty: 60 0RF diltiazem HCl 240 mg Capsule,Extended Release 24hr 240 mg PO DAILY Qty: 30 0RF Protocol: Hold for SBP/HR < HOLD for SBP < : 90 HOLD for HR < : 60
[2021-09-22 12:56] LABS: Basophils Absolute Auto 0.1 X10*3/uL (0.0-0.2); Basophils Percent Auto 0.6 % (0-2); Eosinophils Absolute Auto 0.3 X10*3/uL (0.0-0.4); Eosinophils Percent Auto 2.8 % (0-4); Hematocrit 45.7 % (42.0-52.0); Hemoglobin 15.6 g/dl (14.0-18.0); Imm Gran Abs Auto 0.04 X10*3/uL (0.00-0.03); Imm Gran Pct Auto 0.4 % (0.0-0.4); Lymphocytes Absolute Auto 2.1 X10*3/uL (1.2-4.9); Lymphocytes Percent Auto 18.7 % (20-40); Mean Corpuscular HGB Conc 34.1 g/dl (31.0-36.0); Mean Corpuscular Hemoglobin 29.6 pg (27.0-33.0); Mean Corpuscular Volume 86.7 fL (80.0-98.0); Mean Platelet Volume 11.2 fL (9.4-12.4); Monocytes Absolute Auto 0.9 X10*3/uL (0.1-1.2); Monocytes Percent Auto 7.8 % (2-11); Neutrophils Absolute Auto 7.9 x10*3/uL (2.0-8.3); Neutrophils Percent Auto 69.7 % (45-73); Platelet Count 259 X10*3/uL (160-400); Red Blood Count 5.27 X10*6/uL (4.60-5.80); Red Cell Distribution Width 13.1 % (11.0-16.0); White Blood Count 11.3 X10*3/uL (4.8-10.8)
[2021-09-22 13:14] LABS: COVID-19 Test Negative (Negative)
[2021-09-22 13:15] LABS: B Type Natriuretic Peptide 790 pg/mL (<100); Troponin-I High Sensitivity 23.2 ng/L (<3.5-35.0)
[2021-09-22 13:16] LABS: Anion Gap 12 (12-20); Blood Urea Nitrogen 16 mg/dL (9-16); Calcium 9.6 mg/dL (8.4-10.2); Carbon Dioxide 33 mmol/L (22-29); Chloride 94 mmol/L (96-108); Creatinine Clr Calc Pharmacy 77.9; Estimated Glomerular Filt Rate > 60; Glucose Random 535 mg/dL (60-115); Potassium 4.3 mmol/L (3.3-5.1); Sodium 135 mmol/L (135-145)
[2021-09-22 13:24] LABS: Ethanol < 10 mg/dL
[2021-09-22 13:27] LABS: Alanine Aminotransferase 11 U/L (0-40); Albumin Level 3.7 g/dL (3.5-5.0); Alkaline Phosphatase 169 U/L (39-117); Aspartate Amino Transferase 14 U/L (5-37); Bilirubin Direct 0.3 mg/dL (0.0-0.5); Bilirubin Total 0.8 mg/dL (0.0-1.0); Total Protein 6.7 g/dL (6.5-8.0)
[2021-09-22] MEDS: Insulin Lispro 100 UNIT/ML 3 ML VIAL 12 UNIT SUBCUT (13:52)
[2021-09-22 14:37] LABS: Appearance Urine CLEAR; Color Urine YELLOW; Glucose Urine UA >=1000 MG/DL (NEG); Leukocyte Esterase Urine NEG (NEG); Nitrite Urine NEG (NEG); PH 5.5 (5.0-8.0); Specific Gravity - Urine <= 1.005 (1.005-1.025); UACC Culture Trigger NO; Urine Blood NEG (NEG); Urine Ketones NEG (NEG); Urine Protein 1+ MG/DL (NEG-TRACE)
[2021-09-22 14:48] LABS: RBC Urine 0-2 /HPF (0); WBC Urine 0-2 /HPF (0-4)
[2021-09-22 15:14] LABS: Glucose, Whole Blood 391 mg/dL (60-115)
[2021-09-22] MEDS: Furosemide 20 MG/2 ML VIAL IVPUSH (15:45)
[2021-09-22 16:18] VITALS: BP 147/91; PULSE 81; RESP 18
--- NOTE | 2021-09-22 18:10 | MHC.CM.ED ---
Dr. Mcgovern requested that pt receive VNA nursing services. Chronic disease and medication management, vs, blood glucose monitoring, home safety assessment. CM called and spoke with Heidi at [facility]. Heidi authorized referrals to be sent locally to VNA. [facility] accepted pt. CM accepted, as pt was already discharged from ED. Attempted to call pt, but phone would not accept messages. CM called and left message with daughter regarding home services for her father and requested return call. F2F, ED summary and transfer notes uploaded into [employer].
== END 2021-09-22 16:18 | disposition home or self-care (01) ==
PROVIDERS: Emergency Provider Emergency Medicine; PCP Internal Medicine Geriatric Medicine
DX: E11.65 Type 2 diabetes mellitus with hyperglycemia (principal); R60.0 Localized edema; R53.1 Weakness; R06.02 Shortness of breath; I48.91 Unspecified atrial fibrillation; I50.22 Chronic systolic (congestive) heart failure; Z20.822 Contact with and (suspected) exposure to COVID-19; Z79.01 Long term (current) use of anticoagulants
CPT/HCPCS: 36415; 70450; 71045; 80048; 80076; 81001; 82077; 82947; 83880; 84484; 85025; 87635; 93005; 96374; 99283; 99284; J1940

== ENCOUNTER 2021-09-29 04:23 | Emergency (ER) | payer MEDICARE, SELFPAY ==
--- NOTE | ~2021-09-29 | CT_ITS ---
EXAMINATION: CT HEAD WITHOUT CONTRAST CLINICAL INFORMATION: Altered mental status COMPARISON: 09/22/2021 TECHNIQUE: Contiguous axial imaging was performed from the skull base to vertex without intravenous administration of contrast. This CT examination was performed using dose optimization techniques as appropriate, variously including the following: *Automated exposure control *Adjustment of mA and/or kV according to patient size (this includes techniques or standardized protocols for targeted exams where dose is matched to indication/reason for exam; i.e. extremities or head) *Use of iterative reconstruction technique DLP: 712 mGy-cm FINDINGS: There is no evidence of acute intracranial hemorrhage or territorial infarction. No abnormal mass effect or midline shift is seen. [place] to white matter differentiation is well preserved. No extra-axial fluid collections are identified. The ventricles are normal in size. There is mild periventricular white matter hypoattenuation consistent with chronic small vessel ischemic disease. Moderate volume loss is noted. The osseous structures and soft tissues are normal. The mastoid air cells and visualized portions of the paranasal sinuses are well aerated. CT/CT head/brain wo con IMPRESSION: No acute intracranial pathology.
[2021-09-29 04:32] VITALS: BP 149/78; PULSE 73; RESP 20; TEMP 36.7; O2SAT 96; BMI 33.3
--- NOTE | 2021-09-29 04:45 | ECG_ITS ---
Test Reason : AMS Blood Pressure : / mmHG Vent. Rate : 072 BPM Atrial Rate : 000 BPM P-R Int : 000 ms QRS Dur : 222 ms QT Int : 520 ms P-R-T Axes : 000 -43 139 degrees QTc Int : 569 ms Atrial fibrillation Left axis deviation Left bundle branch block Abnormal ECG When compared with ECG of 22-SEP-2021 12:26, Vent. rate has decreased BY 38 BPM Referred By: Erlinda Hoover Electronically Signed By:JUAN DIEGO RICHMOND
--- NOTE | 2021-09-29 04:47 | ED_ITS ---
HPI - Altered Mental Status General Chief Complaint: Altered Mental Status Stated Complaint: Vision Problems Time Seen by Provider: 09/29/21 04:34 Source: patient and EMS Mode of arrival: EMS Limitations: no limitations History of Present Illness HPI narrative: Patient comes to the emergency room via EMS. Earlier today, patient pushes Life Alert button. Patient told the EMS staff that he is seeing people coming into his room through the windows, cats. Patient states that he fell earlier today, landed on his knees, they do not hurt. Patient complaining of bilateral minimal wrist pain. States he did not hit his head. Patient denies loss of consciousness. Patient states that he is compliant with his medication for his heart, denies drinking alcohol since he was diagnosed with atrial fibrillation. Related Data Home Medications Medication Instructions Recorded Confirmed betamethasone dipropionate 0.05 % 1 appl TOPICAL BID 06/27/21 06/27/21 topical ointment carvedilol 25 mg tablet 1 tab PO BID 06/27/21 06/27/21 chlorthalidone 25 mg tablet 1 tab PO QAM 06/27/21 06/27/21 clonidine HCl 0.1 mg tablet 1 tab PO BID 06/27/21 06/27/21 cyanocobalamin (vitamin B-12) 1 tab PO QAM 06/27/21 06/27/21 1,000 mcg tablet glipizide 10 mg tablet 1 tab PO BID 06/27/21 06/27/21 hydralazine 10 mg tablet 1 tab PO BID 06/27/21 06/27/21 lisinopril 40 mg tablet 1 tab PO QAM 06/27/21 06/27/21 metformin 1,000 mg tablet 1 tab PO BID 06/27/21 06/27/21 pravastatin 40 mg tablet 1 tab PO BEDTIME 06/27/21 06/27/21 Previous Rx's Medication Instructions Recorded apixaban 5 mg tablet (Eliquis) 5 mg PO BID #60 tab 07/01/21 diltiazem HCl 240 mg 240 mg PO DAILY #30 cap 07/01/21 capsule,extended release 24 hr furosemide 20 mg tablet (Lasix) 20 mg PO DAILY #10 tab 09/22/21 Allergies Allergy/AdvReac Type Severity Reaction Status Date / Time No Known Allergies Allergy Verified 09/22/21 12:18 Review of Systems Review of Systems: Constitutional : Denies fever chills ENT/Mouth : No Hearing loss, No Ear Pain, No Nasal Congestion, No Sinus Pain, No Hoarseness, No sore throat, No Rhinorrhea, No Swallowing Difficulty Eyes: No Eye Pain, No Swelling, No Redness, No Foreign Body, No Discharge, No Vision Changes Cardiovascular : No Chest Pain, No SOB, No Dyspnea on Exertion, No Orthopnea, No Edema, No Palpitations Respiratory : No Cough, No Sputum, No Wheezing, No Smoke Exposure, No Dyspnea Gastrointestinal : No Nausea, No Vomiting, No Diarrhea, No Constipation, No abdominal Pain, No Hematochezia, No Melena Genitourinary : no irregular bleeding, No Dysuria, No Urinary Frequency, No Hematuria, No Urinary Incontinence, No Urgency, No Flank Pain, No Urinary Flow Changes, No Hesitancy Musculoskeletal : Complaining of mild bilateral wrist pain No Myalgias, No Join t Swelling Skin : No Skin Lesions, No rash Neuro : No Weakness, No Numbness, No Paresthesias, No Loss of Consciousness, No Dizziness, No Headache Psych : No Anxiety/Panic, No Depression, no SI or HI, complaining of visual hallucinations, Heme/Lymph: No Bruising, No Bleeding,No Lymphadenopathy Endocrine : No Polyuria, No Polydipsia, No Temperature Intolerance PMFSH Past Medical History Medical History Chronic systolic CHF (congestive heart failure) Diabetes Social History Social History Household Members: None Housing: Apartment Do you presently have visiting nurse or other home services: Yes Alcohol intake: current Alcohol intake frequency: 3 or more drinks per day Alcohol type: hard liquor Patient Tobacco Use Status: Former Tobacco user Advance Directives: Yes Advance Directives on File: Yes Advance Directives Date on File: 06/27/21 service: No Current occupational status: retired Physical Exam ED Vital Signs: Vital Signs - 24 hr 09/29/21 04:32 09/29/21 06:00 Temperature 98.0 F 98.3 F Pulse Rate 73 75 Respiratory Rate 20 20 Blood Pressure 149/78 H 158/84 H Pulse Oximetry 96 97 BMI result Body Mass Index 33.3 Const Other: Appearance: Alert. Oriented X3. Eyes: Pupils equal, round and reactive to light. ENT: Pharynx normal. Neck: Normal inspection. Neck supple. No lymph nodes noted. No crepitus CVS: Normal heart rate and rhythm. Pulses normal. Normal S1 and S2 Respiratory: No respiratory distress. Breath sounds normal. No Wheezing. No rales Abdomen: Soft and nontender. No rigidity. No distention. Skin: Skin warm and dry. Normal skin color. Normal skin turgor. Extremities: No lower extremity edema. No Lacerations. No Rash Neuro: Oriented X 3. No motor deficit. No sensory deficit. Moving all extremities. No slurred speech. CN 2 through 12 grossly intact Psych: calm, cooperative, normal affect, complaining of visual hallucinations even in the hospital, seeing things moving in his room Course Course Course Narrative: Patient's blood glucose is 395. Patient will be giving 10 units of insulin. At this time, will avoid fluids, patient does have history of CHF, ejection fraction of 20-25%. Patient's lactic acid is 2.1. At this time, patient has no signs of infection. Lactic does not need to be repeated, sepsis not suspected. Urinalysis pending. Patient has hallucination may be secondary to UTI versus drug use. U tox pending as well. Patient had a urinalysis done a week ago, which was negative for UTI. If the urinalysis is negative, patient will likely need [facility] consult/Psychiatry 06:30, patient has been unable to provide a urine sample. Physician observation started at 06:30 Sign-out given to Dr. Chavez [facility] - Altered Mental Status Lab Data Result diagrams: 09/29/21 05:11 09/29/21 05:11 Labs: Lab Results 09/29/21 09/29/21 09/29/21 Range/Units 05:11 05:11 05:11 WBC 11.1 H (4.8-10.8) X10*3/uL RBC 5.08 (4.60-5.80) X10*6/uL Hgb 15.0 (14.0-18.0) g/dl Hct 44.4 (42.0-52.0) % MCV 87.4 (80.0-98.0) fL MCH 29.5 (27.0-33.0) pg MCHC 33.8 (31.0-36.0) g/dl RDW 13.2 (11.0-16.0) % Plt Count 287 (160-400) X10*3/uL MPV 10.7 (9.4-12.4) fL Immature Gran % (Auto) 0.4 (0.0-0.4) % Neut % (Auto) 69.5 (45-73) % Lymph % (Auto) 18.9 L (20-40) % [place] % (Auto) 8.2 (2-11) % Eos % (Auto) 2.6 (0-4) % Baso % (Auto) 0.4 (0-2) % Lymph # (Auto) 2.1 (1.2-4.9) X10*3/uL [place] # (Auto) 0.9 (0.1-1.2) X10*3/uL Eos # (Auto) 0.3 (0.0-0.4) X10*3/uL Baso # (Auto) 0.1 (0.0-0.2) X10*3/uL Abs Immat Gran (auto) 0.04 H (0.00-0.03) X10*3/uL Absolute Neuts (auto) 7.8 (2.0-8.3) x10*3/uL Absolute Nucleated RBC 0.000 (0.0-0.012) X10*3/uL Nucleated RBC % (auto) 0.0 (0.0-0.2) /100WBC PT (9.9-13.0) SEC INR (0.9-1.1) Sodium 134 L (135-145) mmol/L Potassium 3.5 (3.3-5.1) mmol/L Chloride 92 L (96-108) mmol/L Carbon Dioxide 31 H (22-29) mmol/L Anion Gap 15 (12-20) BUN 28 H D (9-16) mg/dL Creatinine 1.29 (0.5-1.4) mg/dL Estim Creat Clear Calc 66.6 Estimated GFR 55 Random Glucose 395 H* (60-115) mg/dL Lactic Acid 2.1 H* (0.5-2.0) mmol/L Calcium 9.4 (8.4-10.2) mg/dL Magnesium 1.8 (1.6-2.6) mg/dL Total Bilirubin 0.7 (0.0-1.0) mg/dL Direct Bilirubin 0.3 (0.0-0.5) mg/dL AST 13 (5-37) U/L ALT 12 (0-40) U/L Alkaline Phosphatase 134 H D (39-117) U/L Ammonia (13-55) umol/L B-Natriuretic Peptide (<100) pg/mL Total Protein 6.8 (6.5-8.0) g/dL Albumin 3.9 (3.5-5.0) g/dL TSH (0.32-4.0) uIU/mL Ethyl Alcohol mg/dL Acetone, Qual (Negative) COVID-19 (BRAVO) (Negative) COVID-19 Clin Com 09/29/21 09/29/21 09/29/21 Range/Units 05:11 05:11 05:11 WBC (4.8-10.8) X10*3/uL RBC (4.60-5.80) X10*6/uL Hgb (14.0-18.0) g/dl Hct (42.0-52.0) % MCV (80.0-98.0) fL MCH (27.0-33.0) pg MCHC (31.0-36.0) g/dl RDW (11.0-16.0) % Plt Count (160-400) X10*3/uL MPV (9.4-12.4) fL Immature Gran % (Auto) (0.0-0.4) % Neut % (Auto) (45-73) % Lymph % (Auto) (20-40) % [place] % (Auto) (2-11) % Eos % (Auto) (0-4) % Baso % (Auto) (0-2) % Lymph # (Auto) (1.2-4.9) X10*3/uL [place] # (Auto) (0.1-1.2) X10*3/uL Eos # (Auto) (0.0-0.4) X10*3/uL Baso # (Auto) (0.0-0.2) X10*3/uL Abs Immat Gran (auto) (0.00-0.03) X10*3/uL Absolute Neuts (auto) (2.0-8.3) x10*3/uL Absolute Nucleated RBC (0.0-0.012) X10*3/uL Nucleated RBC % (auto) (0.0-0.2) /100WBC PT 14.1 H (9.9-13.0) SEC INR 1.2 H (0.9-1.1) Sodium (135-145) mmol/L Potassium (3.3-5.1) mmol/L Chloride (96-108) mmol/L Carbon Dioxide (22-29) mmol/L Anion Gap (12-20) BUN (9-16) mg/dL Creatinine (0.5-1.4) mg/dL Estim Creat Clear Calc Estimated GFR Random Glucose (60-115) mg/dL Lactic Acid (0.5-2.0) mmol/L Calcium (8.4-10.2) mg/dL Magnesium (1.6-2.6) mg/dL Total Bilirubin (0.0-1.0) mg/dL Direct Bilirubin (0.0-0.5) mg/dL AST (5-37) U/L ALT (0-40) U/L Alkaline Phosphatase (39-117) U/L Ammonia 22 (13-55) umol/L B-Natriuretic Peptide (<100) pg/mL Total Protein (6.5-8.0) g/dL Albumin (3.5-5.0) g/dL TSH (0.32-4.0) uIU/mL Ethyl Alcohol mg/dL Acetone, Qual (Negative) COVID-19 (BRAVO) Negative (Negative) COVID-19 Clin Com See Note 09/29/21 09/29/21 09/29/21 Range/Units 05:11 05:11 05:11 WBC (4.8-10.8) X10*3/uL RBC (4.60-5.80) X10*6/uL Hgb (14.0-18.0) g/dl Hct (42.0-52.0) % MCV (80.0-98.0) fL MCH (27.0-33.0) pg MCHC (31.0-36.0) g/dl RDW (11.0-16.0) % Plt Count (160-400) X10*3/uL MPV (9.4-12.4) fL Immature Gran % (Auto) (0.0-0.4) % Neut % (Auto) (45-73) % Lymph % (Auto) (20-40) % [place] % (Auto) (2-11) % Eos % (Auto) (0-4) % Baso % (Auto) (0-2) % Lymph # (Auto) (1.2-4.9) X10*3/uL [place] # (Auto) (0.1-1.2) X10*3/uL Eos # (Auto) (0.0-0.4) X10*3/uL Baso # (Auto) (0.0-0.2) X10*3/uL Abs Immat Gran (auto) (0.00-0.03) X10*3/uL Absolute Neuts (auto) (2.0-8.3) x10*3/uL Absolute Nucleated RBC (0.0-0.012) X10*3/uL Nucleated RBC % (auto) (0.0-0.2) /100WBC PT (9.9-13.0) SEC INR (0.9-1.1) Sodium (135-145) mmol/L Potassium (3.3-5.1) mmol/L Chloride (96-108) mmol/L Carbon Dioxide (22-29) mmol/L Anion Gap (12-20) BUN (9-16) mg/dL Creatinine (0.5-1.4) mg/dL Estim Creat Clear Calc Estimated GFR Random Glucose (60-115) mg/dL Lactic Acid (0.5-2.0) mmol/L Calcium (8.4-10.2) mg/dL Magnesium (1.6-2.6) mg/dL Total Bilirubin (0.0-1.0) mg/dL Direct Bilirubin (0.0-0.5) mg/dL AST (5-37) U/L ALT (0-40) U/L Alkaline Phosphatase (39-117) U/L Ammonia (13-55) umol/L B-Natriuretic Peptide 231 H (<100) pg/mL Total Protein (6.5-8.0) g/dL Albumin (3.5-5.0) g/dL TSH 1.91 (0.32-4.0) uIU/mL Ethyl Alcohol < 10 mg/dL Acetone, Qual Negative (Negative) COVID-19 (BRAVO) (Negative) COVID-19 Clin Com Discharge Plan Discharge Clinical Impression: Hyperglycemia, Hallucination, visual Patient Disposition: Still a Patient Prescriptions: No Action hydralazine 10 mg tablet 1 tab PO BID 0RF carvedilol 25 mg tablet 1 tab PO BID 0RF clonidine HCl 0.1 mg tablet 1 tab PO BID 0RF pravastatin 40 mg tablet 1 tab PO BEDTIME 0RF glipizide 10 mg tablet 1 tab PO BID 0RF cyanocobalamin (vitamin B-12) 1,000 mcg tablet 1 tab PO QAM 0RF chlorthalidone 25 mg tablet 1 tab PO QAM 0RF metformin 1,000 mg tablet 1 tab PO BID 0RF betamethasone dipropionate 0.05 % ointment 1 appl topical BID 0RF Protocol: Apply to: Apply to: AFFECTED AREAS lisinopril 40 mg tablet 1 tab PO QAM 0RF Eliquis 5 mg Tablet 5 mg PO BID Qty: 60 0RF diltiazem HCl 240 mg Capsule,Extended Release 24hr 240 mg PO DAILY Qty: 30 0RF Protocol: Hold for SBP/HR < HOLD for SBP < : 90 HOLD for HR < : 60 furosemide [Lasix] 20 mg tablet 20 mg PO DAILY Qty: 10 0RF
[2021-09-29 05:18] LABS: Basophils Absolute Auto 0.1 X10*3/uL (0.0-0.2); Basophils Percent Auto 0.4 % (0-2); Eosinophils Absolute Auto 0.3 X10*3/uL (0.0-0.4); Eosinophils Percent Auto 2.6 % (0-4); Hematocrit 44.4 % (42.0-52.0); Imm Gran Abs Auto 0.04 X10*3/uL (0.00-0.03); Imm Gran Pct Auto 0.4 % (0.0-0.4); Lymphocytes Absolute Auto 2.1 X10*3/uL (1.2-4.9); Lymphocytes Percent Auto 18.9 % (20-40); MANUAL DIFF FLAG NO; Mean Corpuscular HGB Conc 33.8 g/dl (31.0-36.0); Mean Corpuscular Hemoglobin 29.5 pg (27.0-33.0); Mean Corpuscular Volume 87.4 fL (80.0-98.0); Mean Platelet Volume 10.7 fL (9.4-12.4); Monocytes Absolute Auto 0.9 X10*3/uL (0.1-1.2); Monocytes Percent Auto 8.2 % (2-11); Neutrophils Absolute Auto 7.8 x10*3/uL (2.0-8.3); Neutrophils Percent Auto 69.5 % (45-73); Platelet Count 287 X10*3/uL (160-400); Red Blood Count 5.08 X10*6/uL (4.60-5.80); Red Cell Distribution Width 13.2 % (11.0-16.0); White Blood Count 11.1 X10*3/uL (4.8-10.8)
[2021-09-29 05:24] LABS: Acetone, serum QL Negative (Negative)
[2021-09-29 05:26] LABS: INTERNATIONAL NORM RATIO 1.2 (0.9-1.1); Prothrombin Time 14.1 SEC (9.9-13.0)
[2021-09-29 05:27] LABS: Ammonia 22 umol/L (13-55)
[2021-09-29 05:30] LABS: COVID-19 Test Negative (Negative)
[2021-09-29 05:33] LABS: Ethanol < 10 mg/dL
[2021-09-29 05:36] LABS: Lactic Acid 2.1 mmol/L (0.5-2.0)
[2021-09-29 05:37] LABS: Alanine Aminotransferase 12 U/L (0-40); Albumin Level 3.9 g/dL (3.5-5.0); Alkaline Phosphatase 134 U/L (39-117); Anion Gap 15 (12-20); Aspartate Amino Transferase 13 U/L (5-37); Bilirubin Direct 0.3 mg/dL (0.0-0.5); Bilirubin Total 0.7 mg/dL (0.0-1.0); Blood Urea Nitrogen 28 mg/dL (9-16); Calcium 9.4 mg/dL (8.4-10.2); Carbon Dioxide 31 mmol/L (22-29); Chloride 92 mmol/L (96-108); Creatinine Clr Calc Pharmacy 66.6; Estimated Glomerular Filt Rate 55; Glucose Random 395 mg/dL (60-115); Magnesium 1.8 mg/dL (1.6-2.6); Potassium 3.5 mmol/L (3.3-5.1); Sodium 134 mmol/L (135-145); Total Protein 6.8 g/dL (6.5-8.0)
[2021-09-29 05:39] LABS: B Type Natriuretic Peptide 231 pg/mL (<100)
[2021-09-29 05:53] LABS: TSH reflex Free T4 1.91 uIU/mL (0.32-4.0)
[2021-09-29] MEDS: Insulin Regular, Human 100 UNIT/ML 3 ML VIAL 10 UNIT IVPUSH (05:59)
[2021-09-29 06:00] VITALS: BP 158/84; PULSE 75; RESP 20; TEMP 36.8; O2SAT 97
[2021-09-29 06:45] VITALS: BP 155/69; PULSE 75; RESP 14; O2SAT 95
[2021-09-29 06:54] LABS: Glucose, Whole Blood 230 mg/dL (60-115)
[2021-09-29 06:57] LABS: Appearance Urine CLEAR; Color Urine YELLOW; Glucose Urine UA 500 MG/DL (NEG); Leukocyte Esterase Urine NEG (NEG); Nitrite Urine NEG (NEG); PH 5.5 (5.0-8.0); Specific Gravity - Urine >= 1.030 (1.005-1.025); Urine Blood NEG (NEG); Urine Ketones 5 MG/DL (NEG); Urine Protein TRACE MG/DL (NEG-TRACE)
[2021-09-29 07:09] LABS: Amphetamine Screen Urine Not Detected (Not Detect); Barbiturates, Urine Not Detected (Not Detect); Benzodiazepines Screen Urine Not Detected (Not Detect); Cannabinoid Screen Urine Not Detected (Not Detect); Cocaine Screen Urine Not Detected (Not Detect); Fentanyl, urine Not Detected (Not Detect); Opiate Screen Urine Not Detected (Not Detect); Phencyclidine Screen Urine Not Detected (Not Detect)
[2021-09-29 07:17] LABS: Reflex Lactate? Lactic Acid Added
[2021-09-29] MEDS: 0.9 % Sodium Chloride 1,000 ML 999 ML IV (07:25)
[2021-09-29] MEDS: Acetaminophen 325 MG TABLET 650 MG PO (07:25)
[2021-09-29 07:45] LABS: ~Lactic Acid-LAB USE ONLY 1.9 mmol/L (0.5-2.0)
[2021-09-29 08:06] VITALS: BP 130/63; PULSE 60; RESP 18; O2SAT 96
[2021-09-29 10:43] VITALS: BP 130/83; PULSE 68; RESP 18; O2SAT 97
[2021-09-29 12:37] LABS: Anion Gap 12 (12-20); Blood Urea Nitrogen 28 mg/dL (9-16); Calcium 9.2 mg/dL (8.4-10.2); Carbon Dioxide 31 mmol/L (22-29); Chloride 96 mmol/L (96-108); Creatinine Clr Calc Pharmacy 78.2; Estimated Glomerular Filt Rate > 60; Glucose Random 268 mg/dL (60-115); Potassium 3.4 mmol/L (3.3-5.1); Sodium 136 mmol/L (135-145)
--- NOTE | 2021-09-29 13:08 | PC.NURSE ---
Patient's care transferred to pod, patient changed in pod
[2021-09-29 16:20] VITALS: BP 173/79; PULSE 79; RESP 17; TEMP 36.6; O2SAT 98
--- NOTE | 2021-09-29 17:07 | MHC.CARE ---
Patient evaluated by CARE Team, disposition pending psychiatric consult
--- NOTE | 2021-09-29 17:10 | HO.PSYCHPN ---
Subjective Subjective Reason For Visit: Vision Problems Diagnostics Vital Signs (24Hr): Vital Signs - 24 hr 09/29/21 04:32 09/29/21 06:00 09/29/21 06:45 Temperature 98.0 F 98.3 F Pulse Rate 73 75 75 Respiratory Rate 20 20 14 Blood Pressure 149/78 H 158/84 H 155/69 H Pulse Oximetry 96 97 95 09/29/21 08:06 09/29/21 10:43 09/29/21 16:20 Temperature 97.9 F Pulse Rate 60 68 79 Respiratory Rate 18 18 17 Blood Pressure 130/63 130/83 173/79 H Pulse Oximetry 96 97 98 BMI result Body Mass Index 33.3 Labs Results: 09/29/21 05:11 09/29/21 12:11 Labs: Laboratory Results - last 48 hr 09/29/21 09/29/21 09/29/21 05:11 05:11 05:11 WBC 11.1 H RBC 5.08 Hgb 15.0 Hct 44.4 MCV 87.4 MCH 29.5 MCHC 33.8 RDW 13.2 Plt Count 287 MPV 10.7 Immature Gran % (Auto) 0.4 Neut % (Auto) 69.5 Lymph % (Auto) 18.9 L [place] % (Auto) 8.2 Eos % (Auto) 2.6 Baso % (Auto) 0.4 Lymph # (Auto) 2.1 [place] # (Auto) 0.9 Eos # (Auto) 0.3 Baso # (Auto) 0.1 Abs Immat Gran (auto) 0.04 H Absolute Neuts (auto) 7.8 Absolute Nucleated RBC 0.000 Nucleated RBC % (auto) 0.0 PT INR Sodium 134 L Potassium 3.5 Chloride 92 L Carbon Dioxide 31 H Anion Gap 15 BUN 28 H D Creatinine 1.29 Estim Creat Clear Calc 66.6 Estimated GFR 55 POC Glucose Random Glucose 395 H* Lactic Acid 2.1 H* Lactic Acid F/U @ 2Hr Calcium 9.4 Magnesium 1.8 Total Bilirubin 0.7 Direct Bilirubin 0.3 AST 13 ALT 12 Alkaline Phosphatase 134 H D Ammonia B-Natriuretic Peptide Total Protein 6.8 Albumin 3.9 TSH Urine Color Urine Appearance Urine pH Ur Specific [place] Urine Protein Urine Glucose (UA) Urine Ketones Urine Blood Urine Nitrite Ur Leukocyte Esterase Urine Opiates Screen Urine Fentanyl Screen Ur Barbiturates Screen Ur Phencyclidine Scrn Ur Amphetamines Screen U Benzodiazepines Scrn Urine Cocaine Screen U Marijuana (THC) Screen Ethyl Alcohol Acetone, Qual COVID-19 (BRAVO) COVID-19 [employer] Com 09/29/21 09/29/21 09/29/21 05:11 05:11 05:11 WBC RBC Hgb Hct MCV MCH MCHC RDW Plt Count MPV Immature Gran % (Auto) Neut % (Auto) Lymph % (Auto) [place] % (Auto) Eos % (Auto) Baso % (Auto) Lymph # (Auto) [place] # (Auto) Eos # (Auto) Baso # (Auto) Abs Immat Gran (auto) Absolute Neuts (auto) Absolute Nucleated RBC Nucleated RBC % (auto) PT 14.1 H INR 1.2 H Sodium Potassium Chloride Carbon Dioxide Anion Gap BUN Creatinine Estim Creat Clear Calc Estimated GFR POC Glucose Random Glucose Lactic Acid Lactic Acid F/U @ 2Hr Calcium Magnesium Total Bilirubin Direct Bilirubin AST ALT Alkaline Phosphatase Ammonia 22 B-Natriuretic Peptide Total Protein Albumin TSH Urine Color Urine Appearance Urine pH Ur Specific [place] Urine Protein Urine Glucose (UA) Urine Ketones Urine Blood Urine Nitrite Ur Leukocyte Esterase Urine Opiates Screen Urine Fentanyl Screen Ur Barbiturates Screen Ur Phencyclidine Scrn Ur Amphetamines Screen U Benzodiazepines Scrn Urine Cocaine Screen U Marijuana (THC) Screen Ethyl Alcohol Acetone, Qual COVID-19 (BRAVO) Negative COVID-19 [employer] Com See Note 09/29/21 09/29/21 09/29/21 05:11 05:11 05:11 WBC RBC Hgb Hct MCV MCH MCHC RDW Plt Count MPV Immature Gran % (Auto) Neut % (Auto) Lymph % (Auto) [place] % (Auto) Eos % (Auto) Baso % (Auto) Lymph # (Auto) [place] # (Auto) Eos # (Auto) Baso # (Auto) Abs Immat Gran (auto) Absolute Neuts (auto) Absolute Nucleated RBC Nucleated RBC % (auto) PT INR Sodium Potassium Chloride Carbon Dioxide Anion Gap BUN Creatinine Estim Creat Clear Calc Estimated GFR POC Glucose Random Glucose Lactic Acid Lactic Acid F/U @ 2Hr Calcium Magnesium Total Bilirubin Direct Bilirubin AST ALT Alkaline Phosphatase Ammonia B-Natriuretic Peptide 231 H Total Protein Albumin TSH 1.91 Urine Color Urine Appearance Urine pH Ur Specific [place] Urine Protein Urine Glucose (UA) Urine Ketones Urine Blood Urine Nitrite Ur Leukocyte Esterase Urine Opiates Screen Urine Fentanyl Screen Ur Barbiturates Screen Ur Phencyclidine Scrn Ur Amphetamines Screen U Benzodiazepines Scrn Urine Cocaine Screen U Marijuana (THC) Screen Ethyl Alcohol < 10 Acetone, Qual Negative COVID-19 (BRAVO) COVID-[employer] 09/29/21 09/29/21 09/29/21 06:47 06:48 06:48 WBC RBC Hgb Hct MCV MCH MCHC RDW Plt Count MPV Immature Gran % (Auto) Neut % (Auto) Lymph % (Auto) [place] % (Auto) Eos % (Auto) Baso % (Auto) Lymph # (Auto) [place] # (Auto) Eos # (Auto) Baso # (Auto) Abs Immat Gran (auto) Absolute Neuts (auto) Absolute Nucleated RBC Nucleated RBC % (auto) PT INR Sodium Potassium Chloride Carbon Dioxide Anion Gap BUN Creatinine Estim Creat Clear Calc Estimated GFR POC Glucose 230 H Random Glucose Lactic Acid Lactic Acid F/U @ 2Hr Calcium Magnesium Total Bilirubin Direct Bilirubin AST ALT Alkaline Phosphatase Ammonia B-Natriuretic Peptide Total Protein Albumin TSH Urine Color YELLOW Urine Appearance CLEAR Urine pH 5.5 Ur Specific [place] >= 1.030 H Urine Protein TRACE Urine Glucose (UA) 500 H Urine Ketones 5 Urine Blood NEG Urine Nitrite NEG Ur Leukocyte Esterase NEG Urine Opiates Screen Not Detected Urine Fentanyl Screen Not Detected Ur Barbiturates Screen Not Detected Ur Phencyclidine Scrn Not Detected Ur Amphetamines Screen Not Detected U Benzodiazepines Scrn Not Detected Urine Cocaine Screen Not Detected U Marijuana (THC) Screen Not Detected Ethyl Alcohol Acetone, Qual COVID-19 (BRAVO) COVID-[employer] 09/29/21 09/29/21 07:31 12:11 WBC RBC Hgb Hct MCV MCH MCHC RDW Plt Count MPV Immature Gran % (Auto) Neut % (Auto) Lymph % (Auto) [place] % (Auto) Eos % (Auto) Baso % (Auto) Lymph # (Auto) [place] # (Auto) Eos # (Auto) Baso # (Auto) Abs Immat Gran (auto) Absolute Neuts (auto) Absolute Nucleated RBC Nucleated RBC % (auto) PT INR Sodium 136 Potassium 3.4 Chloride 96 Carbon Dioxide 31 H Anion Gap 12 BUN 28 H Creatinine 1.10 Estim Creat Clear Calc 78.2 Estimated GFR > 60 POC Glucose Random Glucose 268 H Lactic Acid Lactic Acid F/U @ 2Hr 1.9 Calcium 9.2 Magnesium Total Bilirubin Direct Bilirubin AST ALT Alkaline Phosphatase Ammonia B-Natriuretic Peptide Total Protein Albumin TSH Urine Color Urine Appearance Urine pH Ur Specific [place] Urine Protein Urine Glucose (UA) Urine Ketones Urine Blood Urine Nitrite Ur Leukocyte Esterase Urine Opiates Screen Urine Fentanyl Screen Ur Barbiturates Screen Ur Phencyclidine Scrn Ur Amphetamines Screen U Benzodiazepines Scrn Urine Cocaine Screen U Marijuana (THC) Screen Ethyl Alcohol Acetone, Qual COVID-19 (BRAVO) COVID-19 Clin Com Imaging Radiology Impressions: ITS Impressions Head CT 09/29/21 05:05 IMPRESSION: No acute intracranial pathology. Medications Medications Current Medications Pharmacy Consult (Consult Rx Perform Med Rec) 1 each MISCELLANE ONCE PRN PRN Reason: Consult order Allergies Allergies Allergy/AdvReac Type Severity Reaction Status Date / Time No Known Allergies Allergy Verified 09/22/21 12:18 Assessment & Plan I spent minutes with the patient and/or on the patient floor today, greater than?50% of which was spent counseling/coordinating care.
--- NOTE | 2021-09-29 17:51 | MHC.CARE ---
CARE Team referred pt to [facility] for outpatient psychiatric providers.
--- NOTE | 2021-09-30 21:36 | PM.PSYCN ---
History of Present Illness Date of Service: 09/29/2021 Chief Complaint: Vision Problems Reason for Consult: disposition Requesting physician: Katheryn Jc Discussed with referring provider: Yes Sources of Information: patient interviewed, chart reviewed and crisis/core team assessment reviewed HPI Narrative: Abimael is a 70 y.o. Male who does not have a psychiatric history and [place] [facility] [place] via EMS after pushing the Life Alert button, had fallen on his knees, did not hit his head, no LOC. Pt told the ED provider that he is seeing people and cats coming into his room through the windows. Pt was recently seen at [facility] and was started on furosemide. He has been abstinent on alcohol since he was diagnosed with atrial fibrillation. Hx of treatment for [place] withdrawal [place] [facility] showed no acute intracranial findings. Pt had elevated BUN 28, received IV fluids.? I evaluated the pt this evening and upon interview he reports he is in the hospital because ?I fell? and also endorses visual hallucinations of a person who came into his apartment through the window and sat down in a chair, he had long hair that covered his face, he was missing his right side, and his other arm was very long. Also says he saw a little dog and cat come through the window. Reports onset of VH was 2-4 days and denies past hx of hallucinations. He is insistent that the hallucination was ?true.? Altogether has seen four people. No hx of psych treatment.? Pt reports ?sometimes i?m depressed, I feel better now.? Denies SI/SIB/HI upon inquiry. Says he feels safe to go home. Pt says he used to drink daily and ?I wanted to drink until I ,? however stopped in 06/2021 after his PCP told him he had to for his heart. Denies hx of seizures. Pt is A&O x 3. Denies issues with memory. No involuntary movements, rigidity, or contractions. Says he has been eating okay, drinking fluids. Pt reports he ambulates with a walker due to losing his balance, attributes this to hearing issues. I spoke with pt?s son, who reports pt does not have a h of hallucinations. States he takes a while to wake up completely. Says pt is forgetful with appointments, wont know the details, but otherwise denies memory concerns. Says pt has been ?down,? has hx of depression. Says he is ?trying to get him out to do things, but he doesnt wanna do nothing,? stays in the house.? Past Psychiatric History: -No past psych history Medical Evaluation Reviewed: Yes [facility] Medical History Chronic systolic CHF (congestive heart failure) Diabetes Social History: -Pt lives alone and has a PIN CHASER, son is very involved, has a friend that checks on him daily. He is independent with showering, toileting, and cooking. -, has 2 sons and 2 daughters Substance History: -Patient was a daily drinker since his youth (vodka), last time 06/2021. Diagnostics Vital Signs (24Hr): BMI result Body Mass Index 33.3 Labs Results: 09/29/21 05:11 09/29/21 12:11 Labs: Laboratory Results - last 48 hr 09/29/21 09/29/21 09/29/21 05:11 05:11 05:11 WBC 11.1 H RBC 5.08 Hgb 15.0 Hct 44.4 MCV 87.4 MCH 29.5 MCHC 33.8 RDW 13.2 Plt Count 287 MPV 10.7 Immature Gran % (Auto) 0.4 Neut % (Auto) 69.5 Lymph % (Auto) 18.9 L Bartholomew % (Auto) 8.2 Eos % (Auto) 2.6 Baso % (Auto) 0.4 Lymph # (Auto) 2.1 Bartholomew # (Auto) 0.9 Eos # (Auto) 0.3 Baso # (Auto) 0.1 Abs Immat Gran (auto) 0.04 H Absolute Neuts (auto) 7.8 Absolute Nucleated RBC 0.000 Nucleated RBC % (auto) 0.0 PT INR Sodium 134 L Potassium 3.5 Chloride 92 L Carbon Dioxide 31 H Anion Gap 15 BUN 28 H D Creatinine 1.29 Estim Creat Clear Calc 66.6 Estimated GFR 55 POC Glucose Random Glucose 395 H* Lactic Acid 2.1 H* Lactic Acid F/U @ 2Hr Calcium 9.4 Magnesium 1.8 Total Bilirubin 0.7 Direct Bilirubin 0.3 AST 13 ALT 12 Alkaline Phosphatase 134 H D Ammonia B-Natriuretic Peptide Total Protein 6.8 Albumin 3.9 TSH Urine Color Urine Appearance Urine pH Ur Specific [place] Urine Protein Urine Glucose (UA) Urine Ketones Urine Blood Urine Nitrite Ur Leukocyte Esterase Urine Opiates Screen Urine Fentanyl Screen Ur Barbiturates Screen Ur Phencyclidine Scrn Ur Amphetamines Screen U Benzodiazepines Scrn Urine Cocaine Screen U Marijuana (THC) Screen Ethyl Alcohol Acetone, Qual COVID-19 (BRAVO) COVID-19 Clin Com 09/29/21 09/29/21 09/29/21 05:11 05:11 05:11 WBC RBC Hgb Hct MCV MCH MCHC RDW Plt Count MPV Immature Gran % (Auto) Neut % (Auto) Lymph % (Auto) Bartholomew % (Auto) Eos % (Auto) Baso % (Auto) Lymph # (Auto) Bartholomew # (Auto) Eos # (Auto) Baso # (Auto) Abs Immat Gran (auto) Absolute Neuts (auto) Absolute Nucleated RBC Nucleated RBC % (auto) PT 14.1 H INR 1.2 H Sodium Potassium Chloride Carbon Dioxide Anion Gap BUN Creatinine Estim Creat Clear Calc Estimated GFR POC Glucose Random Glucose Lactic Acid Lactic Acid F/U @ 2Hr Calcium Magnesium Total Bilirubin Direct Bilirubin AST ALT Alkaline Phosphatase Ammonia 22 B-Natriuretic Peptide Total Protein Albumin TSH Urine Color Urine Appearance Urine pH Ur Specific [place] Urine Protein Urine Glucose (UA) Urine Ketones Urine Blood Urine Nitrite Ur Leukocyte Esterase Urine Opiates Screen Urine Fentanyl Screen Ur Barbiturates Screen Ur Phencyclidine Scrn Ur Amphetamines Screen U Benzodiazepines Scrn Urine Cocaine Screen U Marijuana (THC) Screen Ethyl Alcohol Acetone, Qual COVID-19 (BRAVO) Negative COVID-19 Clin Com See Note 09/29/21 09/29/21 09/29/21 05:11 05:11 05:11 WBC RBC Hgb Hct MCV MCH MCHC RDW Plt Count MPV Immature Gran % (Auto) Neut % (Auto) Lymph % (Auto) Bartholomew % (Auto) Eos % (Auto) Baso % (Auto) Lymph # (Auto) Bartholomew # (Auto) Eos # (Auto) Baso # (Auto) Abs Immat Gran (auto) Absolute Neuts (auto) Absolute Nucleated RBC Nucleated RBC % (auto) PT INR Sodium Potassium Chloride Carbon Dioxide Anion Gap BUN Creatinine Estim Creat Clear Calc Estimated GFR POC Glucose Random Glucose Lactic Acid Lactic Acid F/U @ 2Hr Calcium Magnesium Total Bilirubin Direct Bilirubin AST ALT Alkaline Phosphatase Ammonia B-Natriuretic Peptide 231 H Total Protein Albumin TSH 1.91 Urine Color Urine Appearance Urine pH Ur Specific [place] Urine Protein Urine Glucose (UA) Urine Ketones Urine Blood Urine Nitrite Ur Leukocyte Esterase Urine Opiates Screen Urine Fentanyl Screen Ur Barbiturates Screen Ur Phencyclidine Scrn Ur Amphetamines Screen U Benzodiazepines Scrn Urine Cocaine Screen U Marijuana (THC) Screen Ethyl Alcohol < 10 Acetone, Qual Negative COVID-19 (BRAVO) COVID-19 Clin Com 09/29/21 09/29/21 09/29/21 06:47 06:48 06:48 WBC RBC Hgb Hct MCV MCH MCHC RDW Plt Count MPV Immature Gran % (Auto) Neut % (Auto) Lymph % (Auto) Bartholomew % (Auto) Eos % (Auto) Baso % (Auto) Lymph # (Auto) Bartholomew # (Auto) Eos # (Auto) Baso # (Auto) Abs Immat Gran (auto) Absolute Neuts (auto) Absolute Nucleated RBC Nucleated RBC % (auto) PT INR Sodium Potassium Chloride Carbon Dioxide Anion Gap BUN Creatinine Estim Creat Clear Calc Estimated GFR POC Glucose 230 H Random Glucose Lactic Acid Lactic Acid F/U @ 2Hr Calcium Magnesium Total Bilirubin Direct Bilirubin AST ALT Alkaline Phosphatase Ammonia B-Natriuretic Peptide Total Protein Albumin TSH Urine Color YELLOW Urine Appearance CLEAR Urine pH 5.5 Ur Specific [place] >= 1.030 H Urine Protein TRACE Urine Glucose (UA) 500 H Urine Ketones 5 Urine Blood NEG Urine Nitrite NEG Ur Leukocyte Esterase NEG Urine Opiates Screen Not Detected Urine Fentanyl Screen Not Detected Ur Barbiturates Screen Not Detected Ur Phencyclidine Scrn Not Detected Ur Amphetamines Screen Not Detected U Benzodiazepines Scrn Not Detected Urine Cocaine Screen Not Detected U Marijuana (THC) Screen Not Detected Ethyl Alcohol Acetone, Qual COVID-19 (BRAVO) COVID-19 [employer] Com 09/29/21 09/29/21 07:31 12:11 WBC RBC Hgb Hct MCV MCH MCHC RDW Plt Count MPV Immature Gran % (Auto) Neut % (Auto) Lymph % (Auto) Bartholomew % (Auto) Eos % (Auto) Baso % (Auto) Lymph # (Auto) Bartholomew # (Auto) Eos # (Auto) Baso # (Auto) Abs Immat Gran (auto) Absolute Neuts (auto) Absolute Nucleated RBC Nucleated RBC % (auto) PT INR Sodium 136 Potassium 3.4 Chloride 96 Carbon Dioxide 31 H Anion Gap 12 BUN 28 H Creatinine 1.10 Estim Creat Clear Calc 78.2 Estimated GFR > 60 POC Glucose Random Glucose 268 H Lactic Acid Lactic Acid F/U @ 2Hr 1.9 Calcium 9.2 Magnesium Total Bilirubin Direct Bilirubin AST ALT Alkaline Phosphatase Ammonia B-Natriuretic Peptide Total Protein Albumin TSH Urine Color Urine Appearance Urine pH Ur Specific [place] Urine Protein Urine Glucose (UA) Urine Ketones Urine Blood Urine Nitrite Ur Leukocyte Esterase Urine Opiates Screen Urine Fentanyl Screen Ur Barbiturates Screen Ur Phencyclidine Scrn Ur Amphetamines Screen U Benzodiazepines Scrn Urine Cocaine Screen U Marijuana (THC) Screen Ethyl Alcohol Acetone, Qual COVID-19 (BRAVO) COVID-19 Clin Com Imaging Radiology Impressions: ITS Impressions Head CT 09/29/21 05:05 IMPRESSION: No acute intracranial pathology. Mental Status Exam Mental Status Exam Narrative: A&O. Overweight, somewhat unkempt i.e. scruffy, overweight. Good eye contact, attentive. No Tics or Tremors. No abnormal involuntary movements. Calm, cooperative, engaged. Non-pressured speech, spontaneous with regular rate and rhythm, normal volume and prosody. No prolonged speech latency or dysarthria. Mood is ?better,? affect is euthymic. Denies SI/SIB/HI upon inquiry. Currently denies A/VH or delusional thought content, however reports prior to coming to the hospital he was experiencing VH 2-4 days. Thoughts are coherent, organized other than pt having belief that VH were real. No known cognitive or memory impairment. Insight/ Judgment limited but adequate. Medications Allergies Allergies Allergy/AdvReac Type Severity Reaction Status Date / Time No Known Allergies Allergy Verified 09/22/21 12:18 Assessment & Plan Assessment & Plan (1) Delirium due to another medical condition: Status: Acute Code(s): F05 - Delirium due to known physiological condition Plan Pt is a 70 y.o. male who carres a dx of AUD, in remission since 06/2021. Pt Presents with hx of depression, however no hx of psychiatric treatment. He does not present with dementia, no concerns for LBD at this time. Pt is A&Ox3. He presented with acute onset of VH of deformed people, cats, dogs, and was convinced perceptual disturbance was real to the extent that he tried to swing at the figures with his cane, spray lysol on them. He was started on lasix one week ago due to dx of CHF. BUN 28 and pt received IV fluids. Due to pt's lack of psych sx other than VH, I suspect pt was in delirious state that appears to have cleared. Will not treat with psychotropic medication at this time, discussed case with pt's HCP and son and recommended pt return for treatment if psychotic sx re-emerge. Pt does not meet criteria for psych IPLOC. I have shared this with ED provider. I spent minutes with the patient and/or on the patient floor today, greater than?50% of which was spent counseling/coordinating care. Patient educated on: therapeutic strategies and medical condition
== END 2021-09-29 19:18 | disposition home or self-care (01) ==
PROVIDERS: Emergency Medicine; Physician Assistant; Emergency Provider Emergency Medicine; PCP Internal Medicine Geriatric Medicine
DX: R44.1 Visual hallucinations (principal); E11.65 Type 2 diabetes mellitus with hyperglycemia; M25.532 Pain in left wrist; M25.531 Pain in right wrist; I48.91 Unspecified atrial fibrillation; I50.22 Chronic systolic (congestive) heart failure; F10.10 Alcohol abuse, uncomplicated; Y90.0 Blood alcohol level of less than 20 mg/100 ml; Z20.822 Contact with and (suspected) exposure to COVID-19; Z79.01 Long term (current) use of anticoagulants; Z79.02 Long term (current) use of antithrombotics/antiplatelets; Z79.899 Other long term (current) drug therapy
CPT/HCPCS: 36415; 51701; 70450; 80048; 80076; 80307; 81003; 82009; 82077; 82140; 82947; 83605; 83735; 83880; 84443; 85025; 85610; 87040; 87635; 93005; 96361; 96374; 99285

== ENCOUNTER 2021-10-06 08:54 | Inpatient (IN) | payer MEDICARE, SELFPAY ==
[2021-10-06] VITALS (7 sets, daily range): BP systolic 98–175; BP diastolic 53–100; PULSE 45–61; RESP 12–18; TEMP 36.4; O2SAT 94–98; BMI 32.3
--- NOTE | ~2021-10-06 | XR_ITS ---
EXAMINATION: XR CHEST CLINICAL INFORMATION: Chest pain and cough. Rule out pneumonia. COMPARISON: Previous chest x-ray September 2021 TECHNIQUE: Frontal view of the chest was obtained. FINDINGS: The cardiac silhouette is enlarged but stable. Hilar and mediastinal contours are unremarkable. The lung volumes are low. The lungs are clear. There is no pleural effusion or pneumothorax. No acute bone abnormality. XR/XR chest 1V IMPRESSION: Stable enlargement of the cardiac silhouette. Low lung volumes.
--- NOTE | 2021-10-06 09:11 | ECG_ITS ---
Test Reason : CHEST PAIN Blood Pressure : / mmHG Vent. Rate : 048 BPM Atrial Rate : 000 BPM P-R Int : 000 ms QRS Dur : 162 ms QT Int : 484 ms P-R-T Axes : 000 011 173 degrees QTc Int : 432 ms Atrial fibrillation with slow ventricular response with premature ventricular or aberrantly conducted complexes and with ventricular escape complexes Left bundle branch block Abnormal ECG When compared with ECG of 29-SEP-2021 05:38, Sinus rhythm is now with ventricular escape complexes Vent. rate has decreased BY 24 BPM QRS duration has decreased T wave inversion now evident in Anterior leads QT has shortened Referred By: Trung Griffin Electronically Signed By:Soto Luz
--- NOTE | 2021-10-06 09:11 | ED.CHESTPAIN ---
HPI - Chest Pain General Chief Complaint: Chest Pain Stated Complaint: CP Time Seen by Provider: 10/06/21 09:11 Source: patient Mode of arrival: EMS Limitations: language barrier (Belizean speaking, does speak some Ghanaian, interpreter used) History of Present Illness HPI narrative: 70-year-old male who presents emergency department for evaluation of chest pain. He states that the chest pain started at 03:00 hours. The pain came on gradually. The pain has been intermittent. He describes the pain as a stabbing pain the last minutes then resolved but then returned. Pain is 5/10 at its worst. He does have associated shortness of breath and nausea. He states that he has had a cough but this is chronic. Patient states he has had similar episodes of chest pain frequently in the past he has also had frequent episodes of cough and shortness of breath. Patient does have a history of coronary disease and states they had a myocardial infarction 06/2021. Patient states that he has had no appetite and has not been eating for 3 days but has been drinking juice. He has had nausea with no vomiting or diarrhea. He denied any dark tarry stools or bloody stools. He denied abdominal pain. Patient was seen in the emergency department on 09/22/2021 for visual hallucinations, this was felt to be secondary to either new medications or the patient's alcohol use. Patient was also seen in the emergency department on 09/29/2021 for increased peripheral edema. 1124: I did speak to the patient's [id number], Magalie Lainez who was concerned that the patient is noncompliant with his medications. She believes that he is stop drinking alcohol but she is not certain. She states that he is continuing to hallucinate and have visual hallucinations. Related Data Home Medications Medication Instructions Recorded Confirmed betamethasone dipropionate 0.05 % 1 appl TOPICAL BID 06/27/21 10/06/21 topical ointment carvedilol 25 mg tablet 1 tab PO BID 06/27/21 10/06/21 chlorthalidone 25 mg tablet 1 tab PO QAM 06/27/21 10/06/21 clonidine HCl 0.1 mg tablet 1 tab PO BID 06/27/21 10/06/21 cyanocobalamin (vitamin B-12) 1 tab PO QAM 06/27/21 10/06/21 1,000 mcg tablet glipizide 10 mg tablet 1 tab PO BID 06/27/21 10/06/21 hydralazine 10 mg tablet 1 tab PO BID 06/27/21 10/06/21 lisinopril 40 mg tablet 1 tab PO QAM 06/27/21 10/06/21 metformin 1,000 mg tablet 1 tab PO BID 06/27/21 10/06/21 pravastatin 40 mg tablet 1 tab PO BEDTIME 06/27/21 10/06/21 Previous Rx's Medication Instructions Recorded apixaban 5 mg tablet (Eliquis) 5 mg PO BID #60 tab 07/01/21 diltiazem HCl 240 mg 240 mg PO DAILY #30 cap 07/01/21 capsule,extended release 24 hr furosemide 20 mg tablet (Lasix) 20 mg PO DAILY #10 tab 09/22/21 Allergies Allergy/AdvReac Type Severity Reaction Status Date / Time No Known Allergies Allergy Verified 09/22/21 12:18 Review of Systems Review of Systems: Yes all other systems are reviewed and are negative [facility] Past Medical History [facility] Narrative: Past medical history: Diabetes, hypertension, hyperlipidemia, myocardial infarction 06/2021, atrial fibrillation congestive heart failure, asthma. Social history: The patient is a former smoker, he states he stop smoking 40 years prior. He denies alcohol use. Denies drug use. Medical History Chronic systolic CHF (congestive heart failure) Diabetes Social History Social History Household Members: None Housing: Apartment Do you presently have visiting nurse or other home services: Yes Alcohol intake: current Alcohol intake frequency: 3 or more drinks per day Alcohol type: hard liquor Patient Tobacco Use Status: Former Tobacco user Advance Directives: Yes Advance Directives on File: Yes Advance Directives Date on File: 06/27/21 service: No Current occupational status: retired Physical Exam Vital Signs: Vital Signs: Last Vital Signs Temp 97.6 F 10/06/21 09:33 Pulse 47 L 10/06/21 10:54 Resp 16 10/06/21 10:54 BP 98/53 L 10/06/21 10:54 Pulse Ox 95 10/06/21 10:54 BMI result Body Mass Index 32.3 Const: General: cooperative and no acute distress Orientation/consciousness: oriented to person and oriented to place Limitations: no limitations HEENT: Head: Yes normal to inspection, Yes normocephalic and Yes atraumatic Ears: external ears normal General nose exam: Normal external nose present Face and sinus: Yes normal facial exam Mouth: Normal oral and palatal mucosa present Throat: Yes posterior oropharynx normal Eyes: General: appearance normal, both eyes and all related structures Pupils: Equal, round and reactive pupils present Neck: Neck: Yes normal visual inspection, Yes no lymphadenopathy, Yes trachea midline and Yes supple Chest: Chest palpation & inspection: normal inspection of the chest and normal palpation of entire chest wall Resp: Effort & Inspection: normal respiratory effort and able to speak in complete sentences Auscultation: clear to auscultation bilaterally Cardio: Rate: bradycardic Rhythm: abnormal rhythm irregularly irregular Heart sounds: S1 normal heart sound present, S2 normal heart sound present and no murmurs GI: Inspection: Yes normal to inspection Palpation (GI): Soft to palpation, nontender and no guarding Auscultation: normal bowel sounds : General: Yes no CVA tenderness Back/Spine/Pelvis: Back: no CVA tenderness Skin: General skin exam: no rashes or lesions noted Neuro: General: oriented to person and oriented to place Cranial nerves: Yes CN's II-XII intact bilaterally and Yes Equal, round and reactive pupils present Cognition (Neuro): normal cognition Motor exam (neuro): 5/5 motor strength present throughout Extrem: General: Yes normal to inspection and Yes edema (1+, bilaterally symmetric) Psych: Appearance: grossly normal Speech and movement: Normal speech and movement present Affect: normal affect Attitude: cooperative Thought process: Normal thought process present Thought content: Normal thought content present Course Course Course Narrative: 70-year-old male who presents emergency department for evaluation of chest pain which began at 03:00 hours, the pain is a sharp stabbing pain which is intermittent lasting minutes, he has had multiple episodes, pain is 5/10 at its worse, associated with shortness of breath and nausea. Patient states he has had similar presentations in the past, he also has a cough which he states is chronic. Vital signs revealed an elevated blood pressure of 153/64 and bradycardia with a pulse of 50. O2 saturation was 97% on room air. Patient's lung exam was clear. He does have 1+ pitting edema. I did order a cardiac workup to include EKG, CBC, CMP, troponin, PT/INR, PTT. Chest x-ray will also be obtained . The patient was ordered to get morphine 4 mg IV and Zofran 4 mg IV. 1125: Laboratory evaluation: Elevated glucose 471, detectable but not elevated high sensitive troponin I at 15, COVID-19 negative. Elevated INR 1.6, elevated PTT 38. Elevated BNP 497. Alcohol below detectable limits. COVID-19 negative. Urinalysis and urine drug screen pending. Patient is feeling better after the above treatment, he has no chest pain I will repeat patient's troponin at 12:45. Patient remains bradycardic and this may be secondary to his diltiazem. 1403: Patient did not report any more episodes of chest pain. The patient's 3 hour repeat high sensitivity troponin I was 16.6. The patient still bradycardic. The patient has been having visual hallucinations for weeks and may be related to his alcohol use disorder. He does not appear to be actively hallucinating here in the emergency department. I will discuss admission with the covering hospitalist. MDM - Chest Pain Lab Data Result diagrams: 10/06/21 09:49 10/06/21 09:49 Labs: Lab Results 10/06/21 10/06/21 10/06/21 Range/Units 09:49 09:49 09:49 WBC 9.8 (4.8-10.8) X10*3/uL RBC 4.52 L (4.60-5.80) X10*6/uL Hgb 13.2 L (14.0-18.0) g/dl Hct 39.8 L (42.0-52.0) % MCV 88.1 (80.0-98.0) fL MCH 29.2 (27.0-33.0) pg MCHC 33.2 (31.0-36.0) g/dl RDW 13.5 (11.0-16.0) % Plt Count 235 (160-400) X10*3/uL MPV 10.8 (9.4-12.4) fL Immature Gran % (Auto) 0.6 H (0.0-0.4) % Neut % (Auto) 73.3 H (45-73) % Lymph % (Auto) 15.6 L (20-40) % [place] % (Auto) 8.2 (2-11) % Eos % (Auto) 1.9 (0-4) % Baso % (Auto) 0.4 (0-2) % Lymph # (Auto) 1.5 (1.2-4.9) X10*3/uL [place] # (Auto) 0.8 (0.1-1.2) X10*3/uL Eos # (Auto) 0.2 (0.0-0.4) X10*3/uL Baso # (Auto) 0.0 (0.0-0.2) X10*3/uL Abs Immat Gran (auto) 0.06 H (0.00-0.03) X10*3/uL Absolute Neuts (auto) 7.2 (2.0-8.3) x10*3/uL Absolute Nucleated RBC 0.000 (0.0-0.012) X10*3/uL Nucleated RBC % (auto) 0.0 (0.0-0.2) /100WBC PT 18.1 H (9.9-13.0) SEC INR 1.6 H (0.9-1.1) APTT 38.3 H (24.1-38.0) SEC Sodium 135 (135-145) mmol/L Potassium 3.9 (3.3-5.1) mmol/L Chloride 96 (96-108) mmol/L Carbon Dioxide 29 (22-29) mmol/L Anion Gap 14 (12-20) BUN 17 H (9-16) mg/dL Creatinine 1.26 (0.5-1.4) mg/dL Estim Creat Clear Calc 69.2 Estimated GFR 56 Random Glucose 471 H* (60-115) mg/dL Calcium 9.0 (8.4-10.2) mg/dL Total Bilirubin 0.9 (0.0-1.0) mg/dL AST 16 (5-37) U/L ALT 21 (0-40) U/L Alkaline Phosphatase 123 H (39-117) U/L Troponin I High Sens (<3.5-35.0) ng/L B-Natriuretic Peptide (<100) pg/mL Total Protein 6.1 L (6.5-8.0) g/dL Albumin 3.6 (3.5-5.0) g/dL Lipase 14 (8-78) U/L Ethyl Alcohol mg/dL COVID-19 (BRAVO) (Negative) COVID-19 Clin Com 10/06/21 10/06/21 10/06/21 Range/Units 09:49 09:49 10:21 WBC (4.8-10.8) X10*3/uL RBC (4.60-5.80) X10*6/uL Hgb (14.0-18.0) g/dl Hct (42.0-52.0) % MCV (80.0-98.0) fL MCH (27.0-33.0) pg MCHC (31.0-36.0) g/dl RDW (11.0-16.0) % Plt Count (160-400) X10*3/uL MPV (9.4-12.4) fL Immature Gran % (Auto) (0.0-0.4) % Neut % (Auto) (45-73) % Lymph % (Auto) (20-40) % [place] % (Auto) (2-11) % Eos % (Auto) (0-4) % Baso % (Auto) (0-2) % Lymph # (Auto) (1.2-4.9) X10*3/uL [place] # (Auto) (0.1-1.2) X10*3/uL Eos # (Auto) (0.0-0.4) X10*3/uL Baso # (Auto) (0.0-0.2) X10*3/uL Abs Immat Gran (auto) (0.00-0.03) X10*3/uL Absolute Neuts (auto) (2.0-8.3) x10*3/uL Absolute Nucleated RBC (0.0-0.012) X10*3/uL Nucleated RBC % (auto) (0.0-0.2) /100WBC PT (9.9-13.0) SEC INR (0.9-1.1) APTT (24.1-38.0) SEC Sodium (135-145) mmol/L Potassium (3.3-5.1) mmol/L Chloride (96-108) mmol/L Carbon Dioxide (22-29) mmol/L Anion Gap (12-20) BUN (9-16) mg/dL Creatinine (0.5-1.4) mg/dL Estim Creat Clear Calc Estimated GFR Random Glucose (60-115) mg/dL Calcium (8.4-10.2) mg/dL Total Bilirubin (0.0-1.0) mg/dL AST (5-37) U/L ALT (0-40) U/L Alkaline Phosphatase (39-117) U/L Troponin I High Sens 15.0 (<3.5-35.0) ng/L B-Natriuretic Peptide 497 H (<100) pg/mL Total Protein (6.5-8.0) g/dL Albumin (3.5-5.0) g/dL Lipase (8-78) U/L Ethyl Alcohol < 10 mg/dL COVID-19 (BRAVO) Negative (Negative) COVID-19 Clin Com See Note 10/06/21 Range/Units 12:56 WBC (4.8-10.8) X10*3/uL RBC (4.60-5.80) X10*6/uL Hgb (14.0-18.0) g/dl Hct (42.0-52.0) % MCV (80.0-98.0) fL MCH (27.0-33.0) pg MCHC (31.0-36.0) g/dl RDW (11.0-16.0) % Plt Count (160-400) X10*3/uL MPV (9.4-12.4) fL Immature Gran % (Auto) (0.0-0.4) % Neut % (Auto) (45-73) % Lymph % (Auto) (20-40) % [place] % (Auto) (2-11) % Eos % (Auto) (0-4) % Baso % (Auto) (0-2) % Lymph # (Auto) (1.2-4.9) X10*3/uL [place] # (Auto) (0.1-1.2) X10*3/uL Eos # (Auto) (0.0-0.4) X10*3/uL Baso # (Auto) (0.0-0.2) X10*3/uL Abs Immat Gran (auto) (0.00-0.03) X10*3/uL Absolute Neuts (auto) (2.0-8.3) x10*3/uL Absolute Nucleated RBC (0.0-0.012) X10*3/uL Nucleated RBC % (auto) (0.0-0.2) /100WBC PT (9.9-13.0) SEC INR (0.9-1.1) APTT (24.1-38.0) SEC Sodium (135-145) mmol/L Potassium (3.3-5.1) mmol/L Chloride (96-108) mmol/L Carbon Dioxide (22-29) mmol/L Anion Gap (12-20) BUN (9-16) mg/dL Creatinine (0.5-1.4) mg/dL Estim Creat Clear Calc Estimated GFR Random Glucose (60-115) mg/dL Calcium (8.4-10.2) mg/dL Total Bilirubin (0.0-1.0) mg/dL AST (5-37) U/L ALT (0-40) U/L Alkaline Phosphatase (39-117) U/L Troponin I High Sens 16.6 (<3.5-35.0) ng/L B-Natriuretic Peptide (<100) pg/mL Total Protein (6.5-8.0) g/dL Albumin (3.5-5.0) g/dL Lipase (8-78) U/L Ethyl Alcohol mg/dL COVID-19 (BRAVO) (Negative) COVID-19 Clin Com ECG Data ECG #1: Interpretation: 0907: Atrial fibrillation with a slow ventricular response of 48, at prolonged QRS of 162 milliseconds, normal QTC of 432 milliseconds, left bundle branch block, inverted T-waves in 1 and aVL, no ST segment elevation, compared to EKG dated 09/22/2021, the bradycardia is new, atrial fibrillation and left Discharge Plan Discharge Clinical Impression: Chest pain, Atrial fibrillation with slow ventricular response, Hallucination, visual Patient Disposition: Admitted As Inpatient Prescriptions: No Action hydralazine 10 mg tablet 1 tab PO BID 0RF carvedilol 25 mg tablet 1 tab PO BID 0RF clonidine HCl 0.1 mg tablet 1 tab PO BID 0RF pravastatin 40 mg tablet 1 tab PO BEDTIME 0RF glipizide 10 mg tablet 1 tab PO BID 0RF cyanocobalamin (vitamin B-12) 1,000 mcg tablet 1 tab PO QAM 0RF chlorthalidone 25 mg tablet 1 tab PO QAM 0RF metformin 1,000 mg tablet 1 tab PO BID 0RF betamethasone dipropionate 0.05 % ointment 1 appl topical BID 0RF Protocol: Apply to: Apply to: AFFECTED AREAS lisinopril 40 mg tablet 1 tab PO QAM 0RF Eliquis 5 mg Tablet 5 mg PO BID Qty: 60 0RF diltiazem HCl 240 mg Capsule,Extended Release 24hr 240 mg PO DAILY Qty: 30 0RF Protocol: Hold for SBP/HR < HOLD for SBP < : 90 HOLD for HR < : 60 furosemide [Lasix] 20 mg tablet 20 mg PO DAILY Qty: 10 0RF
[2021-10-06] MEDS: ondansetron HCL 4 MG/2 ML VIAL IVPUSH (09:19)
[2021-10-06] MEDS: Morphine Sulfate 4 MG/ML CARTRIDGE IVPUSH (09:19)
[2021-10-06 09:54] LABS: MANUAL DIFF FLAG NO
[2021-10-06 09:59] LABS: Basophils Percent Auto 0.4 % (0-2); Eosinophils Absolute Auto 0.2 X10*3/uL (0.0-0.4); Eosinophils Percent Auto 1.9 % (0-4); Hematocrit 39.8 % (42.0-52.0); Hemoglobin 13.2 g/dl (14.0-18.0); Imm Gran Abs Auto 0.06 X10*3/uL (0.00-0.03); Imm Gran Pct Auto 0.6 % (0.0-0.4); Lymphocytes Absolute Auto 1.5 X10*3/uL (1.2-4.9); Lymphocytes Percent Auto 15.6 % (20-40); Mean Corpuscular HGB Conc 33.2 g/dl (31.0-36.0); Mean Corpuscular Hemoglobin 29.2 pg (27.0-33.0); Mean Corpuscular Volume 88.1 fL (80.0-98.0); Mean Platelet Volume 10.8 fL (9.4-12.4); Monocytes Absolute Auto 0.8 X10*3/uL (0.1-1.2); Monocytes Percent Auto 8.2 % (2-11); Neutrophils Absolute Auto 7.2 x10*3/uL (2.0-8.3); Neutrophils Percent Auto 73.3 % (45-73); Platelet Count 235 X10*3/uL (160-400); Red Blood Count 4.52 X10*6/uL (4.60-5.80); Red Cell Distribution Width 13.5 % (11.0-16.0); White Blood Count 9.8 X10*3/uL (4.8-10.8)
[2021-10-06 10:06] LABS: INTERNATIONAL NORM RATIO 1.6 (0.9-1.1); Prothrombin Time 18.1 SEC (9.9-13.0)
[2021-10-06 10:09] LABS: Partial Thromboplastin Time 38.3 SEC (24.1-38.0)
[2021-10-06 10:18] LABS: Alanine Aminotransferase 21 U/L (0-40); Albumin Level 3.6 g/dL (3.5-5.0); Alkaline Phosphatase 123 U/L (39-117); Anion Gap 14 (12-20); Aspartate Amino Transferase 16 U/L (5-37); B Type Natriuretic Peptide 497 pg/mL (<100); Bilirubin Total 0.9 mg/dL (0.0-1.0); Blood Urea Nitrogen 17 mg/dL (9-16); Carbon Dioxide 29 mmol/L (22-29); Chloride 96 mmol/L (96-108); Creatinine Clr Calc Pharmacy 69.2; Estimated Glomerular Filt Rate 56; Glucose Random 471 mg/dL (60-115); Lipase 14 U/L (8-78); Potassium 3.9 mmol/L (3.3-5.1); Sodium 135 mmol/L (135-145); Total Protein 6.1 g/dL (6.5-8.0)
[2021-10-06 10:20] LABS: COVID-19 Test Negative (Negative)
[2021-10-06 10:44] LABS: Ethanol < 10 mg/dL
--- NOTE | 2021-10-06 11:06 | PHA.MEDREC ---
Pharmacy Consult ? Medication Reconciliation Pharmacy has completed the medication reconciliation.
[2021-10-06] MEDS: Insulin Regular, Human 100 UNIT/ML 3 ML VIAL 10 UNIT IVPUSH (11:15)
[2021-10-06 13:32] LABS: Troponin-I High Sensitivity 16.6 ng/L (<3.5-35.0)
--- NOTE | 2021-10-06 15:39 | PM.IMHP ---
History of Present Illness Date of Service: 10/06/21 Chief Complaint: Chest Pain and Shortness of breath 70-year-old male with underlying alcohol abuse, diabetes mellitus, hypertension, AFib on eliquis who presents emergency department for evaluation of chest pain and shortness of.? He relates a gradual onset of chest pain since around 3 am. The pain has been intermittent in nature about 5/10, non radiating, patiennt his rather vague about it. At times stating that it is all his asthma. He has some swelling in the legs that he was pointing to. His apetite has been poor and generally doesn't feel good. No fever, no cough. He was noted to have blood sugar of 471, troponin is is a 16, BNP is 497. He was evaluated in the ED on 09/29 for leg edema. Of note he was noted to have visual hallucinations according to daughter in law but seemed pretty clear to me and conversed appropriately and is well oriented. His [id number]-hqk, Magalie Lainez who was concerned that the patient is noncompliant with his medications.? She believes that he is stop drinking alcohol but she is not certain, patient tells me he has not drank since 2020.? She states that he is continuing to hallucinate and have visual hallucinations. Review of Systems Review of Systems: Chest pain shortness of breath no fever or chills. swelling in the legs Yes all other systems are reviewed and are negative [facility] Medical History (Updated 10/06/21 @ 16:05 by Gabriel Farrell MD) Atrial fibrillation with slow ventricular response Chronic systolic CHF (congestive heart failure) Diabetes Family History (Updated 10/06/21 @ 16:07 by Gabriel Farrell MD) Mother HTN (hypertension) Father CAD (coronary artery disease) HTN (hypertension) Social History Household Members: None Housing: Apartment Do you presently have visiting nurse or other home services: Yes Alcohol intake: current Alcohol intake frequency: 3 or more drinks per day Alcohol type: hard liquor Patient Tobacco Use Status: Former Tobacco user Advance Directives: Yes Advance Directives on File: Yes Advance Directives Date on File: 06/27/21 service: No Current occupational status: retired Meds Allergies Allergy/AdvReac Type Severity Reaction Status Date / Time No Known Allergies Allergy Verified 09/22/21 12:18 Home Medications Medication Instructions Recorded Confirmed Last Taken Type betamethasone dipropionate 0.05 % 1 appl TOPICAL BID 06/27/21 10/06/21 10/05/21 History topical ointment carvedilol 25 mg tablet 1 tab PO BID 06/27/21 10/06/21 10/05/21 History chlorthalidone 25 mg tablet 1 tab PO QAM 06/27/21 10/06/21 10/05/21 History clonidine HCl 0.1 mg tablet 1 tab PO BID 06/27/21 10/06/21 10/05/21 History cyanocobalamin (vitamin B-12) 1 tab PO QAM 06/27/21 10/06/21 10/05/21 History 1,000 mcg tablet glipizide 10 mg tablet 1 tab PO BID 06/27/21 10/06/21 10/05/21 History hydralazine 10 mg tablet 1 tab PO BID 06/27/21 10/06/21 10/05/21 History lisinopril 40 mg tablet 1 tab PO QAM 06/27/21 10/06/21 10/05/21 History metformin 1,000 mg tablet 1 tab PO BID 06/27/21 10/06/21 10/05/21 History pravastatin 40 mg tablet 1 tab PO BEDTIME 06/27/21 10/06/21 10/05/21 History Physical Exam Vital Signs and Narrative: Vital Signs: Last Vital Signs Temp 97.6 F 10/06/21 09:33 Pulse 47 L 10/06/21 10:54 Resp 16 10/06/21 10:54 BP 98/53 L 10/06/21 10:54 Pulse Ox 95 10/06/21 10:54 BMI result Body Mass Index 32.3 Results Labs CBC and Chem 7: 10/06/21 09:49 10/06/21 09:49 Labs: Laboratory Results - last 24 hr 10/06/21 10/06/21 10/06/21 09:49 09:49 09:49 MCV 88.1 MCH 29.2 MCHC 33.2 RDW 13.5 Plt Count 235 MPV 10.8 Immature Gran % (Auto) 0.6 H Neut % (Auto) 73.3 H Lymph % (Auto) 15.6 L [place] % (Auto) 8.2 Eos % (Auto) 1.9 Baso % (Auto) 0.4 Lymph # (Auto) 1.5 [place] # (Auto) 0.8 Eos # (Auto) 0.2 Baso # (Auto) 0.0 Abs Immat Gran (auto) 0.06 H Absolute Neuts (auto) 7.2 Absolute Nucleated RBC 0.000 Nucleated RBC % (auto) 0.0 PT 18.1 H INR 1.6 H APTT 38.3 H Anion Gap 14 Estim Creat Clear Calc 69.2 Estimated GFR 56 Random Glucose 471 H* Calcium 9.0 Total Bilirubin 0.9 AST 16 ALT 21 Alkaline Phosphatase 123 H B-Natriuretic Peptide Total Protein 6.1 L Albumin 3.6 Lipase 14 Ethyl Alcohol COVID-19 (BRAVO) COVID-19 Clin Com 10/06/21 10/06/21 10/06/21 09:49 09:49 10:21 MCV MCH MCHC RDW Plt Count MPV Immature Gran % (Auto) Neut % (Auto) Lymph % (Auto) [place] % (Auto) Eos % (Auto) Baso % (Auto) Lymph # (Auto) [place] # (Auto) Eos # (Auto) Baso # (Auto) Abs Immat Gran (auto) Absolute Neuts (auto) Absolute Nucleated RBC Nucleated RBC % (auto) PT INR APTT Anion Gap Estim Creat Clear Calc Estimated GFR Random Glucose Calcium Total Bilirubin AST ALT Alkaline Phosphatase B-Natriuretic Peptide 497 H Total Protein Albumin Lipase Ethyl Alcohol < 10 COVID-19 (BRAVO) Negative COVID-19 Clin Com See Note Imaging Radiologist's Impressions: Impressions Chest X-Ray 10/06/21 09:15 IMPRESSION: Stable enlargement of the cardiac silhouette. Low lung volumes. Assessment and Plan (1) Chest pain: Status: Acute (2) Chest pain: Status: Acute Plan 70 year old male with with acute on chronic systolic heart failure exacerbation, underlyuing alcohol dependence, h/o AFIB, 1/Acue on chronic systolic heart failure with exacerbation -IV Lasix -Monitor I/O -consider cardiology consult and repeat Echo -Monitor weight, and salt intake 2/Chest pain--fairly vague and trop unremarkable, doubt ACS -Repeat trop, repeat ECG 3/ Chronic AFIB--continue Eliquis, diltiazem for rate control 4/ Diabetes--Hold Metformin and glipize, SSI and diabetic diet 5/Bradycardia--hold Clonidine, and might need to lower dose of diltiazem 6/HTN--Hold Lisinopril, Hydralazine, Chlorthalidone, Coreg and clonidine due to borderline low BP 7/HLD--pravastatin or foumulary equivalent 8/ DVP pro--Eliquis Quality Stroke Does the patient have a stroke diagnosis?: No VTE Prior VTE?: No VTE Risk Level:: Medical - moderate - high VTE Device Contraindication: Treatment Not Tolerated VTE Drug Contraindication: N/A - Med Ordered
[2021-10-06] MEDS: Albuterol Sulfate 90 MCG 8 GM INHALER 2 PUFF INHALE (15:47)
--- NOTE | 2021-10-06 16:30 | PC.NURSE ---
Per patient don't go near me you're not my nurse pt reoirented to situation, pt began screaming. get out
[2021-10-06] MEDS: Furosemide 20 MG/2 ML VIAL IVPUSH (16:43)
--- NOTE | 2021-10-06 20:39 | MHC.CM.PN ---
CM met with patient with medical research assistant, as pt is Vietnamese speaking. A&Ox3. IMM reviewed and signed 10/06/2021@2024. HCP on file. HCP/son Abimael Georges ([phone]). PCP is Matthias Marx. Fully vaccinated with Pfizer. No booster. [facility]. No services. Has cane, walker, shower chair, commode and glucometer. D/C plan is home without services. Family to provide transportation home. CM to follow for d/c needs. .
[2021-10-06 20:43] LABS: Amphetamine Screen Urine Not Detected (Not Detect); Barbiturates, Urine Not Detected (Not Detect); Benzodiazepines Screen Urine Not Detected (Not Detect); Cannabinoid Screen Urine Not Detected (Not Detect); Cocaine Screen Urine Not Detected (Not Detect); Fentanyl, urine Not Detected (Not Detect); Opiate Screen Urine POSITIVE (Not Detect); Phencyclidine Screen Urine Not Detected (Not Detect)
[2021-10-06] MEDS: Insulin Lispro 100 UNIT/ML 3 ML VIAL SUBCUT (21:11)
[2021-10-07] VITALS (7 sets, daily range): BP systolic 119–192; BP diastolic 59–86; PULSE 66–94; RESP 12–20; TEMP 36.2–37.1; O2SAT 90–97
[2021-10-07] MEDS: 0.9 % Sodium Chloride Flush 3 ML SYRINGE IVFLUSH ×4 (00:15→21:57)
[2021-10-07 00:38] LABS: Glucose, Whole Blood 345 mg/dL (60-115)
--- NOTE | 2021-10-07 00:46 | PC.NURSE ---
This rn took over patient's care at 2044, patient is south korean speaking, alert, denies pain at this time. Poc 345, medicated with insulin per humalog sliding scale. Vital signs stable, voided 250 yellow urine via urinal.
--- NOTE | 2021-10-07 01:53 | PC.NURSE ---
Patient to be transferred to overflow ed, report given to RNVeronique.
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
[2021-10-07 08:11] LABS: Glucose, Whole Blood 162 mg/dL (60-115)
[2021-10-07] MEDS: Insulin Lispro 100 UNIT/ML 3 ML VIAL SUBCUT ×4 (08:36→21:44)
[2021-10-07] MEDS: Furosemide 20 MG/2 ML VIAL IVPUSH ×2 (08:37→17:39)
--- NOTE | 2021-10-07 10:03 | MHC.CM.PN ---
Addendum entered by Maria Luz Dick 10/07/21 15:23: Patient was cleared by physical therapy. It appears patient's son and daughter in law are unable to care for patient at home at this time. Anticpipate chcf care will be needed. Referral broadcasted to all facilities within 10 miles of patient's home that are contracted with [facility]. Original Note: Patient is active with [facility]. Received telephone call from Heidi, transitions of care nurse for [facility]. Patient's son called [facility] and stated that patient needs short term rehab placement due to medical and diet noncompliance. Patient's son also states patient has been drinking alcohol. Patient had psych consult last ER visit. Patient was not found to lack capacity for medical decisions. Dr Farrell will be made aware and will be asked to order a physical therapy eval when medically stable. Continue to monitor for d/c needs.
--- NOTE | 2021-10-07 11:30 | PC.NURSE ---
PT ALERT CONFUSED. RANTING. AMB WITH CANE STEADY GAIT. 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 C/ RIGHT FOOT PAIN. REDNESS AND TENDERNESS NOTED. DAUGHTER-IN -LAW STATES PT NEEDS PLACEMENT FAMILY CAN NO LONGER HANDLE HIM.
--- NOTE | 2021-10-07 13:00 | HO.PM.IMPN ---
Subjective Subjective Date of Service: 10/07/21 Interval History: f/u on heart failure, chest pain interval history: feels better today, some swelling inthe legs Review of Systems no chest pain no sob Physical Exam Vital Signs: Vital Signs: Last Vital Signs Temp 97.2 F 10/07/21 07:25 Pulse 94 10/07/21 07:25 Resp 15 10/07/21 07:25 BP 168/86 H 10/07/21 07:25 Pulse Ox 94 10/07/21 07:25 BMI result Body Mass Index 32.3 Const: Other: General: AO X 3, no acute distress Resp: CTA bilateral CVS: S1,S2 iregular, 1+leg edema GI: +BS, NT, no distention Skin: No rash Neuro: motor grossly intact Psych: appropriate affect Objective Data Active Medications Acetaminophen (Acetaminophen 325 Mg Tablet) 650 mg PO Q6H PRN PRN Reason: Pain, Mild (Pain Scale 1-3) Apixaban (Apixaban 5 Mg Tablet) 5 mg PO BID [facility] Carvedilol (Carvedilol 25 Mg Tablet) 25 mg PO BID [facility]; Protocol Cyanocobalamin (Cyanocobalamin (Vitamin B-12) 1,000 Mcg Tablet) mcg PO QAM [facility] Dextrose (Dextrose 50 % 25 Gm/50 Ml Vial) 25 gm IVPUSH Q15M PRN; Protocol PRN Reason: per Hypoglycemia Standing Ord. Diltiazem HCl (Diltiazem Hcl Cd 240 Mg Cap.Er.Deg) 240 mg PO DAILY [facility]; Protocol Furosemide (Furosemide 20 Mg/2 Ml Vial) 20 mg IVPUSH BID@0900,1800 [facility]; Protocol Last Admin: 10/07/21 08:37 Dose: 20 mg Documented by: ASTRID Furosemide (Furosemide 20 Mg Tablet) 20 mg PO DAILY [facility]; Protocol Glucose (Glucose Gel 15 Gm Gel..Gram.) 15 gm PO Q15M PRN; Protocol PRN Reason: per Hypoglycemia Standing Ord. Insulin Human Lispro (Insulin Lispro 100 Unit/Ml 3 Ml Vial) 0 unit SUBCUT QIDACHS [facility]; Protocol Stop: 10/07/21 16:18 Last Admin: 10/07/21 08:36 Dose: 2 unit Documented by: ASTRID Lisinopril (Lisinopril 40 Mg Tablet) 40 mg PO DAILY [facility]; Protocol Melatonin (Melatonin 3 Mg Tablet) 3 mg PO BEDTIME PRN PRN Reason: Insomnia Non-Formulary Medication (Betamethasone Dipropionate) 1 appl TOPICAL BID [facility] Non-Formulary Medication (Chlorthalidone) 1 tab PO QAM [facility] Ondansetron HCl (Ondansetron Hcl 4 Mg/2 Ml Vial) 4 mg IVPUSH Q8H PRN PRN Reason: Nausea and Vomiting Pravastatin Sodium (Pravastatin Sodium 40 Mg Tablet) 40 mg PO BEDTIME [facility] Sodium Chloride (0.9 % Sodium Chloride Flush 3 Ml Syringe) 3 ml IVFLUSH QSHIFT [facility] Last Admin: 10/07/21 08:39 Dose: 3 ml Documented by: ASTRID Labs CBC & Chem 7: 10/06/21 09:49 10/06/21 09:49 Labs: Laboratory Results - last 24 hr 10/06/21 10/06/21 10/07/21 20:16 20:26 07:23 POC Glucose 345 H 162 H Urine Opiates Screen POSITIVE H Urine Fentanyl Screen Not Detected Ur Barbiturates Screen Not Detected Ur Phencyclidine Scrn Not Detected Ur Amphetamines Screen Not Detected U Benzodiazepines Scrn Not Detected Urine Cocaine Screen Not Detected U Marijuana (THC) Screen Not Detected Assessment and Plan (1) Chest pain: Status: Acute (2) Chronic systolic CHF (congestive heart failure): Status: Acute Plan 70 year old male with with acute on chronic systolic heart failure exacerbation, underlyuing alcohol dependence, h/o AFIB, 1/Acue on chronic systolic heart failure with exacerbation -IV Lasix -Monitor I/O -consider cardiology consult and repeat Echo -Monitor weight, and salt intake 2/Chest pain--fairly vague and trop unremarkable, doubt ACS -Repeat trop negative 3/ Chronic AFIB--continue Eliquis, diltiazem for rate control 4/ Diabetes--Hold Metformin and glipize, SSI and diabetic diet 5/Bradycardia--resolved, hold clonidine, 6/HTN--Hold Lisinopril, Hydralazine, Chlorthalidone, contininue Coreg, cardizem. 7/HLD--pravastatin or foumulary equivalent 8/ DVP pro--Eliquis Need for inpatient: management of heart failure with IV Lasix and further evaluation by cardiology PT eval for deconditioning Quality Stroke Does the patient have a stroke diagnosis?: No VTE Prior VTE?: No VTE Risk Level:: Medical - moderate - high VTE Device Contraindication: Treatment Not Tolerated VTE Drug Contraindication: N/A - Med Ordered
[2021-10-07 13:11] LABS: Glucose, Whole Blood 328 mg/dL (60-115)
[2021-10-07] MEDS: hydroCHLOROthiazide 25 MG TABLET PO (13:44)
[2021-10-07] MEDS: Apixaban 5 MG TABLET PO ×2 (13:44→21:43)
[2021-10-07] MEDS: carvediloL 25 MG TABLET PO ×2 (13:44→21:43)
[2021-10-07] MEDS: lisinopriL 40 MG TABLET PO (13:44)
[2021-10-07] MEDS: dilTIAZem HCL CD 240 MG CAP.ER.DEG PO (13:44)
[2021-10-07] MEDS: Cyanocobalamin (Vitamin B-12) 1,000 MCG TABLET 1000 MCG PO (13:45)
[2021-10-07 13:51] LABS: B Type Natriuretic Peptide 389 pg/mL (<100); Troponin-I High Sensitivity 19.4 ng/L (<3.5-35.0)
--- NOTE | 2021-10-07 14:21 | P.CONCA_ITS ---
History of Present Illness History of Present Illness Date of Service: 10/07/21 Chief complaint: CP Narrative: 70-year-old gentleman with background history of alcohol use, cardiomyopathy w ith severely reduced ejection fraction, atrial fibrillation on Eliquis, diabetes and hypertension who presented with shortness of breath and chest pain. He is describing sharp chest pains on multiple points on his chest. Biomarkers are normal. Also has lower extremity edema and known history of injury heart failure. As of June he is saying he has stop drinking alcohol. Blood pressure has been slightly elevated. Overall he is vague historian. [facility] Past Medical History Medical History (Updated 10/06/21 @ 16:05 by Gabriel Farrell MD) Atrial fibrillation with slow ventricular response Chronic systolic CHF (congestive heart failure) Diabetes Family History Family History (Updated 10/06/21 @ 16:07 by Gabriel Farrell MD) Mother HTN (hypertension) Father CAD (coronary artery disease) HTN (hypertension) Social History Social History Household Members: None Housing: Apartment Do you presently have visiting nurse or other home services: Yes Alcohol intake: current Alcohol intake frequency: 3 or more drinks per day Alcohol type: hard liquor Patient Tobacco Use Status: Former Tobacco user Advance Directives: Yes Advance Directives on File: Yes Advance Directives Date on File: 06/27/21 service: No Current occupational status: retired Meds Allergies Allergy/AdvReac Type Severity Reaction Status Date / Time No Known Allergies Allergy Verified 09/22/21 12:18 Active Medications: Current Medications Acetaminophen (Acetaminophen 325 Mg Tablet) 650 mg PO Q6H PRN PRN Reason: Pain, Mild (Pain Scale 1-3) Apixaban (Apixaban 5 Mg Tablet) 5 mg PO BID [facility] Last Admin: 10/07/21 13:44 Dose: 5 mg Documented by: Carvedilol (Carvedilol 25 Mg Tablet) 25 mg PO BID [facility]; Protocol Last Admin: 10/07/21 13:44 Dose: 25 mg Documented by: Cyanocobalamin (Cyanocobalamin (Vitamin B-12) 1,000 Mcg Tablet) 1,000 mcg PO DAILY [facility] Last Admin: 10/07/21 13:45 Dose: 1,000 mcg Documented by: Dextrose (Dextrose 50 % 25 Gm/50 Ml Vial) 25 gm IVPUSH Q15M PRN; Protocol PRN Reason: per Hypoglycemia Standing Ord. Diltiazem HCl (Diltiazem Hcl Cd 240 Mg Cap.Er.Deg) 240 mg PO DAILY [facility]; Protocol Last Admin: 10/07/21 13:44 Dose: 240 mg Documented by: Furosemide (Furosemide 20 Mg/2 Ml Vial) 20 mg IVPUSH BID@0900,1800 [facility]; Protocol Last Admin: 10/07/21 08:37 Dose: 20 mg Documented by: Furosemide (Furosemide 20 Mg Tablet) 20 mg PO DAILY [facility]; Protocol Glucose (Glucose Gel 15 Gm Gel..Gram.) 15 gm PO Q15M PRN; Protocol PRN Reason: per Hypoglycemia Standing Ord. Hydrochlorothiazide (Hydrochlorothiazide 25 Mg Tablet) 25 mg PO DAILY [facility] Last Admin: 10/07/21 13:44 Dose: 25 mg Documented by: Insulin Human Lispro (Insulin Lispro 100 Unit/Ml 3 Ml Vial) 0 unit SUBCUT QIDACHS [facility]; Protocol Stop: 10/07/21 16:18 Last Admin: 10/07/21 13:45 Dose: 10 unit Documented by: Lisinopril (Lisinopril 40 Mg Tablet) 40 mg PO DAILY [facility]; Protocol Last Admin: 10/07/21 13:44 Dose: 40 mg Documented by: Melatonin (Melatonin 3 Mg Tablet) 3 mg PO BEDTIME PRN PRN Reason: Insomnia Ondansetron HCl (Ondansetron Hcl 4 Mg/2 Ml Vial) 4 mg IVPUSH Q8H PRN PRN Reason: Nausea and Vomiting Pravastatin Sodium (Pravastatin Sodium 40 Mg Tablet) 40 mg PO BEDTIME [facility] Sodium Chloride (0.9 % Sodium Chloride Flush 3 Ml Syringe) [facility] Admin: 10/07/21 08:39 Dose: 3 ml Documented by: Triamcinolone Acetonide (Triamcinolone Acet 0.5 % Oint 15 Gm Tube) 1 appl TOPICAL BID [facility] Home Medications Medication Instructions Recorded Confirmed Last Taken Type betamethasone dipropionate 0.05 % 1 appl TOPICAL BID 06/27/21 10/06/21 10/05/21 History topical ointment carvedilol 25 mg tablet 1 tab PO BID 06/27/21 10/06/21 10/05/21 History chlorthalidone 25 mg tablet 1 tab PO QAM 06/27/21 10/06/21 10/05/21 History clonidine HCl 0.1 mg tablet 1 tab PO BID 06/27/21 10/06/21 10/05/21 History cyanocobalamin (vitamin B-12) 1 tab PO QAM 06/27/21 10/06/21 10/05/21 History 1,000 mcg tablet glipizide 10 mg tablet 1 tab PO BID 06/27/21 10/06/21 10/05/21 History hydralazine 10 mg tablet 1 tab PO BID 06/27/21 10/06/21 10/05/21 History lisinopril 40 mg tablet 1 tab PO QAM 06/27/21 10/06/21 10/05/21 History metformin 1,000 mg tablet 1 tab PO BID 06/27/21 10/06/21 10/05/21 History pravastatin 40 mg tablet 1 tab PO BEDTIME 06/27/21 10/06/21 10/05/21 History Physical Exam Vital Signs: Vital Signs: Last Vital Signs Temp 97.2 F 10/07/21 07:25 Pulse 94 10/07/21 07:25 Resp 15 10/07/21 07:25 BP 168/86 H 10/07/21 07:25 Pulse Ox 94 10/07/21 07:25 BMI result Body Mass Index 32.3 GENERAL APPEARANCE: in no acute distress, pleasant. NECK: no carotid bruit, no jugular venous distention. SKIN: no suspicious lesions, warm and dry. HEART: no murmurs, regular rate and rhythm. LUNGS: few crackles at bases. ABDOMEN: soft, nontender. EXTREMITIES: 1+ edema. PERIPHERAL PULSES: equal. NEUROLOGIC: No gross deficits, AAO X 3 Objective Labs and Meds Result diagrams: 10/06/21 09:49 10/06/21 09:49 Lab results: Laboratory Results - last 24 hr 10/06/21 10/06/21 10/07/21 20:16 20:26 07:23 POC Glucose 345 H 162 H Troponin I High Sens B-Natriuretic Peptide Urine Opiates Screen POSITIVE H Urine Fentanyl Screen Not Detected Ur Barbiturates Screen Not Detected Ur Phencyclidine Scrn Not Detected Ur Amphetamines Screen Not Detected U Benzodiazepines Scrn Not Detected Urine Cocaine Screen Not Detected U Marijuana (THC) Screen Not Detected 10/07/21 10/07/21 10/07/21 08:46 13:04 13:15 POC Glucose 328 H Troponin I High Sens 14.0 19.4 B-Natriuretic Peptide 389 H Urine Opiates Screen Urine Fentanyl Screen Ur Barbiturates Screen Ur Phencyclidine Scrn Ur Amphetamines Screen U Benzodiazepines Scrn Urine Cocaine Screen U Marijuana (THC) Screen Assessment and Plan (1) Chest pain: Status: Acute (2) Chronic systolic CHF (congestive heart failure): Status: Acute Plan 70-year-old gentleman with background of chronic systolic heart failure presented with chest pain. The chest pain is atypical and does not require any further workup. He is pain-free right now he has lower extremity edema and background of heart failure. Mild JVD. Agree with IV diuretics today a potentially can change to oral diuretics tomorrow and discharged home. Thank you for allowing me to participate in the care of your patient. Please feel free to contact me if you have any questions. Procedures Date of Service Date of Service: 10/07/21
--- NOTE | 2021-10-07 16:16 | MHC.CM.PN ---
T/W spoke with patient's [id number], Magalie via telephone at [phone]. Explained CM was aware Magalie and [facility] were interested in short term placement for patient. Also explained referral was broadcasted in [employer] to all facilities contracted with patient's insurance. CM will reconnect with family tomorrow for facility choices. Magalie verbalized understanding. Continue to monitor for d/c needs.
--- NOTE | 2021-10-07 17:47 | PC.NURSE ---
Patient alert and oriented x 3. Patient ambulates independently. Patient took off telemonitor. Patient has split in right foot educated patient to wear socks and take care of his feet(lotion and assess feet for cuts or wounds). tele: afib 70-80's Patient on iv lasix for diuresis voiding in urinal. Will continue to monitor.
[2021-10-07 18:30] LABS: Glucose, Whole Blood 195 mg/dL (60-115)
[2021-10-07 21:08] LABS: Glucose, Whole Blood 434 mg/dL (60-115)
[2021-10-07] MEDS: Pravastatin Sodium 40 MG TABLET PO (21:43)
[2021-10-08] VITALS (9 sets, daily range): BP systolic 127–196; BP diastolic 67–100; PULSE 28–96; RESP 16–18; TEMP 35.7–36.4; O2SAT 91–97; BMI 32.0
[2021-10-08 07:12] LABS: Glucose, Whole Blood 228 mg/dL (60-115)
[2021-10-08] MEDS: Insulin Lispro 100 UNIT/ML 3 ML VIAL SUBCUT ×7 (07:33→21:16)
[2021-10-08] MEDS: Cyanocobalamin (Vitamin B-12) 1,000 MCG TABLET 1000 MCG PO (08:34)
[2021-10-08] MEDS: Apixaban 5 MG TABLET PO ×2 (08:34→21:14)
[2021-10-08] MEDS: 0.9 % Sodium Chloride Flush 3 ML SYRINGE IVFLUSH ×3 (08:34→21:16)
[2021-10-08] MEDS: Triamcinolone Acet 0.5 % Oint 15 GM TUBE 1 APPL TOPICAL ×2 (08:59→21:15)
[2021-10-08] MEDS: Furosemide 20 MG TABLET PO (08:59)
[2021-10-08] MEDS: Furosemide 20 MG/2 ML VIAL IVPUSH ×2 (08:59→17:01)
[2021-10-08] MEDS: lisinopriL 10 MG TABLET PO (08:59)
[2021-10-08 11:03] LABS: Glucose, Whole Blood 352 mg/dL (60-115)
--- NOTE | 2021-10-08 11:17 | P.PNIM_ITS ---
Subjective Subjective Date of Service: 10/08/21 Interval History: f/u on heart failure, chest pain interval history: feels better today, HR drops down to 28 and had a 3 sec pause Review of Systems no chest pain no sob Physical Exam Vital Signs: Vital Signs: Last Vital Signs Temp 97.6 F 10/08/21 08:00 Pulse 28 L 10/08/21 08:31 Resp 18 10/08/21 08:00 BP 170/92 H 10/08/21 08:00 Pulse Ox 94 10/08/21 08:00 BMI result Body Mass Index 32.0 Const: Other: General: AO X 3, no acute distress Resp: CTA bilateral CVS: S1,S2 iregular, 1+leg edema GI: +BS, NT, no distention Skin: No rash Neuro: motor grossly intact Psych: appropriate affect Objective Data Active Medications Acetaminophen (Acetaminophen 325 Mg Tablet) 650 mg PO Q6H PRN PRN Reason: Pain, Mild (Pain Scale 1-3) Apixaban (Apixaban 5 Mg Tablet) 5 mg PO BID [facility] Last Admin: 10/08/21 08:34 Dose: 5 mg Documented by: MARY Cyanocobalamin (Cyanocobalamin (Vitamin B-12) 1,000 Mcg Tablet) 1,000 mcg PO DAILY [facility] Last Admin: 10/08/21 08:34 Dose: 1,000 mcg Documented by: MARY Dextrose (Dextrose 50 % 25 Gm/50 Ml Vial) 25 gm IVPUSH Q15M PRN; Protocol PRN Reason: per Hypoglycemia Standing Ord. Furosemide (Furosemide 20 Mg/2 Ml Vial) 20 mg IVPUSH BID@0900,1800 [facility]; Protocol Last Admin: 10/08/21 08:59 Dose: 20 mg Documented by: MARY Furosemide (Furosemide 20 Mg Tablet) 20 mg PO DAILY [facility]; Protocol Last Admin: 10/08/21 08:59 Dose: 20 mg Documented by: MARY Glucose (Glucose Gel 15 Gm Gel..Gram.) 15 gm PO Q15M PRN; Protocol PRN Reason: per Hypoglycemia Standing Ord. Insulin Human Lispro (Insulin Lispro 100 Unit/Ml 3 Ml Vial) 0 unit SUBCUT QIDACHS [facility]; Protocol Last Admin: 10/08/21 07:33 Dose: 4 unit Documented by: MARY Lisinopril (Lisinopril 10 Mg Tablet) 10 mg PO DAILY [facility]; Protocol Last Admin: 10/08/21 08:59 Dose: 10 mg Documented by: MARY Melatonin (Melatonin 3 Mg Tablet) 3 mg PO BEDTIME PRN PRN Reason: Insomnia Ondansetron HCl (Ondansetron Hcl 4 Mg/2 Ml Vial) 4 mg IVPUSH Q8H PRN PRN Reason: Nausea and Vomiting Pravastatin Sodium (Pravastatin Sodium 40 Mg Tablet) 40 mg PO BEDTIME [facility] Last Admin: 10/07/21 21:43 Dose: 40 mg Documented by: GOSIA Sodium Chloride (0.9 % Sodium Chloride Flush 3 Ml Syringe) 3 ml IVFLUSH QSHIFT [facility] Last Admin: 10/08/21 08:34 Dose: 3 ml Documented by: MARY Triamcinolone Acetonide (Triamcinolone Acet 0.5 % Oint 15 Gm Tube) 1 appl TOPICAL BID [facility] Last Admin: 10/08/21 08:59 Dose: 1 appl Documented by: MARY Labs CBC & Chem 7: 10/06/21 09:49 10/06/21 09:49 Labs: Laboratory Results - last 24 hr 10/07/21 10/07/21 10/07/21 13:04 13:15 18:14 POC Glucose 328 H 195 H B-Natriuretic Peptide 389 H 10/07/21 10/08/21 10/08/21 21:05 07:03 10:52 POC Glucose 434 H* 228 H 352 H* B-Natriuretic Peptide Assessment and Plan (1) Chest pain: Status: Acute (2) Chronic systolic CHF (congestive heart failure): Status: Acute Plan 70 year old male with with acute on chronic systolic heart failure exacerbation, underlyuing alcohol dependence, h/o AFIB, 1/Acue on chronic systolic heart failure with exacerbation -IV Lasix to PO today -Monitor I/O -cardiology recommends no further testing -Monitor weight, and salt intake 2/Chest pain--fairly vague and trop unremarkable, doubt ACS -Repeat trop negative. No further testing 3/ Chronic AFIB--continue Eliquis. Holding cardizem and coreg d/t marked gregg to 28 and 3 sec pause this morning, now in 50s and monitor 4/ Diabetes--Hold Metformin and glipize, SSI and diabetic diet 5/Bradycardia--resolved, hold clonidine, 6/HTN--Hold Lisinopril, Hydralazine, Chlorthalidone, contininue Coreg, cardizem. 7/HLD--pravastatin or foumulary equivalent 8/ DVP pro--Eliquis Need for inpatient: management of heart failure with IV Lasix, tele monitoring for signficant gregg into 20s with cardiac pause, and meds being adjusted PT eval for deconditioning Quality Stroke Does the patient have a stroke diagnosis?: No VTE Prior VTE?: No VTE Risk Level:: Medical - moderate - high VTE Device Contraindication: Treatment Not Tolerated VTE Drug Contraindication: N/A - Med Ordered
--- NOTE | 2021-10-08 13:00 | P.PNCA_ITS ---
Subjective Subjective Date of Service: 10/08/21 Principal diagnosis: CP, CHF, CMP Interval history: Cardiology follow up for the above. Seen at 1045. Today he reports feeling good and ready to go home. Denies any chest pains, palpitation, dizziness. Breathing good. No cough. Walking around in room. Review of Systems Review of Systems as above Yes all other systems are reviewed and are negative Physical Exam Vital Signs: Last Vital Signs Temp 97.6 F 10/08/21 12:00 Pulse 68 10/08/21 12:00 Resp 18 10/08/21 12:00 BP 127/67 10/08/21 12:00 Pulse Ox 97 10/08/21 12:00 BMI result Body Mass Index 32.0 Const General: cooperative, no acute distress, alert and awake Orientation/consciousness: patient oriented x3 Neck Neck: Yes normal visual inspection and Yes no JVD Resp Effort & Inspection: normal respiratory effort, able to speak in complete sente nces and not labored Auscultation: clear to auscultation bilaterally, no crackles, no rales, no rhonchi and no wheezes Cardio Rate: regular rate Rhythm: regular rhythm Heart sounds: S1 normal heart sound present and S2 normal heart sound present Peripheral pulses: Peripheral pulses 2+ throughout Neuro General: patient oriented x3 Extrem Other: trace lower leg, foot edema. General: Yes normal to inspection and No edema Objective Labs and Meds Result diagrams: 10/06/21 09:49 10/06/21 09:49 Lab results: Laboratory Results - last 24 hr 10/07/21 10/07/21 10/07/21 13:04 13:15 18:14 POC Glucose 328 H 195 H Troponin I High Sens 19.4 B-Natriuretic Peptide 389 H 10/07/21 10/08/21 10/08/21 21:05 07:03 10:52 POC Glucose 434 H* 228 H 352 H* Troponin I High Sens B-Natriuretic Peptide Progress Note: A&P Assessment and plan (1) Chest pain: Status: Acute Assessment and Plan: Admit with chest discomfort. Has ruled out for ACS. He has had no recurrent chest discomfort since admission. He is continued on his usual cardiac medications including carvedilol, pravastatin. He is not on aspirin as he is on Eliquis. Unknown coronary artery status. (2) Chronic systolic CHF (congestive heart failure): Status: Acute Assessment and Plan: Acute on chronic systolic heart failure. Echo done 07/01/2022 with EF 20-25%, moderate left atrial enlargement, mild MR. BNP elevated at 497 on admission. He did have some shortness of breath. He has been given IV Lasix for gentle diuresis. His breathing is much improved today. Fluid balance close to 1 L negative. He has some trace residual ankle and foot edema however no other signs indicating acute heart failure. He normally takes Lasix 20 mg daily at home. He can be changed to 40 mg daily. Continue carvedilol and lisinopril for neurohormonal modulation. Patient can be discharged from a cardiology perspective. He is followed by a outside cardiology group. We can arrange follow-up if needed (3) Atrial fibrillation with rapid ventricular response: Status: Acute Assessment and Plan: History of atrial fibrillation, seems persistent. EKGs and tele showing AFib, variable rates. Currently controlled with rate 60s to 70s. No heart palp itations. Continues on usual medications for rate control without change. Continue Eliquis for anticoagulation. Fall Risk Details Current Medications: Current Medications Acetaminophen (Acetaminophen 325 Mg Tablet) 650 mg PO Q6H PRN PRN Reason: Pain, Mild (Pain Scale 1-3) Apixaban (Apixaban 5 Mg Tablet) 5 mg PO BID [facility] Last Admin: 10/08/21 08:34 Dose: 5 mg Documented by: Cyanocobalamin (Cyanocobalamin (Vitamin B-12) 1,000 Mcg Tablet) 1,000 mcg PO DAILY [facility] Last Admin: 10/08/21 08:34 Dose: 1,000 mcg Documented by: Dextrose (Dextrose 50 % 25 Gm/50 Ml Vial) 25 gm IVPUSH Q15M PRN; Protocol PRN Reason: per Hypoglycemia Standing Ord. Furosemide (Furosemide 20 Mg/2 Ml Vial) 20 mg IVPUSH BID@0900,1800 [facility]; Protocol Last Admin: 10/08/21 08:59 Dose: 20 mg Documented by: Furosemide (Furosemide 20 Mg Tablet) 20 mg PO DAILY [facility]; Protocol Last Admin: 10/08/21 08:59 Dose: 20 mg Documented by: Glucose (Glucose Gel 15 Gm Gel..Gram.) 15 gm PO Q15M PRN; Protocol PRN Reason: per Hypoglycemia Standing Ord. Insulin Human Lispro (Insulin Lispro 100 Unit/Ml 3 Ml Vial) 0 unit SUBCUT QIDACHS [facility]; Protocol Last Admin: 10/08/21 11:36 Dose: 10 unit Documented by: Insulin Human Lispro (Insulin Lispro 100 Unit/Ml 3 Ml Vial) 5 unit SUBCUT QIDACHS [facility] Last Admin: 10/08/21 11:36 Dose: 5 unit Documented by: Lisinopril (Lisinopril 10 Mg Tablet) 10 mg PO DAILY [facility]; Protocol Last Admin: 10/08/21 08:59 Dose: 10 mg Documented by: Melatonin (Melatonin 3 Mg Tablet) 3 mg PO BEDTIME PRN PRN Reason: Insomnia Ondansetron HCl (Ondansetron Hcl 4 Mg/2 Ml Vial) 4 mg IVPUSH Q8H PRN PRN Reason: Nausea and Vomiting Pravastatin Sodium (Pravastatin Sodium 40 Mg Tablet) 40 mg PO BEDTIME [facility] Last Admin: 10/07/21 21:43 Dose: 40 mg Documented by: Sodium Chloride (0.9 % Sodium Chloride Flush 3 Ml Syringe) 3 ml IVFLUSH QSHIFT [facility] Last Admin: 10/08/21 08:34 Dose: 3 ml Documented by: Triamcinolone Acetonide (Triamcinolone Acet 0.5 % Oint 15 Gm Tube) 1 appl TOPICAL BID [facility] Last Admin: 10/08/21 08:59 Dose: 1 appl Documented by: Time Spent With Patient Time: Total time spent is greater than 50% in coordination of care (as documented) at patient's floor/unit and/or counseling patient: 20 Progress Note: Quality Stroke Does the patient have a stroke diagnosis?: No Procedures Date of Service Date of Service: 10/08/21
[2021-10-08 16:24] LABS: Glucose, Whole Blood 275 mg/dL (60-115)
[2021-10-08 20:15] LABS: Glucose, Whole Blood 263 mg/dL (60-115)
[2021-10-08] MEDS: carvediloL 12.5 MG TABLET PO (21:14)
[2021-10-08] MEDS: Pravastatin Sodium 40 MG TABLET PO (21:14)
--- NOTE | 2021-10-09 | ECG_ITS ---
Test Reason : afib Blood Pressure : / mmHG Vent. Rate : 075 BPM Atrial Rate : 000 BPM P-R Int : 000 ms QRS Dur : 222 ms QT Int : 502 ms P-R-T Axes : 000 -32 133 degrees QTc Int : 560 ms Atrial fibrillation Left axis deviation Left bundle branch block Abnormal ECG When compared with ECG of 06-OCT-2021 09:07, Vent. rate has increased BY 27 BPM QRS duration has increased T wave inversion no longer evident in Anterior leads QT has lengthened Referred By: Celia Galo Electronically Signed By:ISAEL JOYCE MD
[2021-10-09 03:43] VITALS: BP 114/63; PULSE 66; RESP 18; TEMP 36.3; O2SAT 97
[2021-10-09 07:11] VITALS: BP 157/88; PULSE 94; RESP 18; TEMP 36.3; O2SAT 98
[2021-10-09 07:21] LABS: Glucose, Whole Blood 395 mg/dL (60-115)
[2021-10-09] MEDS: Insulin Lispro 100 UNIT/ML 3 ML VIAL SUBCUT ×6 (07:43→17:23)
[2021-10-09] MEDS: 0.9 % Sodium Chloride Flush 3 ML SYRINGE IVFLUSH ×2 (07:45→17:22)
[2021-10-09] MEDS: Furosemide 20 MG/2 ML VIAL IVPUSH ×2 (07:45→17:23)
[2021-10-09] MEDS: lisinopriL 10 MG TABLET PO (07:46)
[2021-10-09] MEDS: carvediloL 12.5 MG TABLET PO (07:46)
[2021-10-09] MEDS: Furosemide 20 MG TABLET PO (07:46)
[2021-10-09] MEDS: Cyanocobalamin (Vitamin B-12) 1,000 MCG TABLET 1000 MCG PO (07:46)
[2021-10-09] MEDS: Apixaban 5 MG TABLET PO (07:46)
[2021-10-09] MEDS: Triamcinolone Acet 0.5 % Oint 15 GM TUBE 1 APPL TOPICAL (07:47)
--- NOTE | 2021-10-09 09:08 | PM.DS ---
DS: Providers Provider Date of Service: 10/09/21 Date of admission: 10/06/21 16:14 Primary care physician: Matthias Marx MD Consults: 10/07/21 06:39 Consult to Cardiology Routine Consulting Provider: Soto Luz Reason for consultation: chest pain heart failure DS: Diagnosis Discharge Diagnosis (1) Chest pain: Status: Resolved (2) Chronic systolic CHF (congestive heart failure): (3) Atrial fibrillation with rapid ventricular response: DS: Summary Hospital Course Hospital Course: Chief Complaint: Chest Pain and Shortness of breath 70-year-old male with underlying alcohol abuse, diabetes mellitus, hypertension, AFib on eliquis who presents emergency department for evaluation of chest pain and shortness of.? He relates a gradual onset of chest pain since around 3 am. The pain has been intermittent in nature about 5/10, non radiating, patiennt his rather vague about it. At times stating that it is all his asthma. He has some swelling in the legs that he was pointing to. His apetite has been poor and generally doesn't feel good.? No fever, no cough.? He was noted to have blood sugar of 471, troponin is is a 16, BNP is 497. He was evaluated in the ED on 09/29 for leg edema. Of note he was noted to have visual hallucinations according to daughter in law? but seemed pretty clear to me and conversed appropriately and is well oriented.? His? [id number], Magalie Lainez who was concerned that the patient is noncompliant with his medications.? She believes that he is stop drinking alcohol but she is not certain, patient tells me he has not drank since 2020.? She states that he is continuing to hallucinate and have visual hallucinations. Hospital course: 1/Acue on chronic systolic heart failure with exacerbation, treated with IV Lasix with improvement and will change back to oral diuretics at time of discharge. Advised to limit salt intatke and water intake and obviously to avoid alcohol 2/Chest pain--fairly vague and trop unremarkable, doubt ACS -Repeat trop negative. No further testing recommended by cardiology 3/ Chronic AFIB--He had an incident of heart rate dropping to 28 and bried 3 second pause.. so his coreg has been reduce 12.5 bid and cardizem to 120 4/ Diabetes--to resume metformin and glipizide, doesn't want insulin 5/Bradycardia--see afib, cardizem, coreg reduced and hold clonidine 6/HTN-- Lisinopril reduced to 20, continue hydralzine, coreg, cardizem as above. Hold clonidine 7/HLD--pravastatin Time Spent with Patient Time attestation: Total time spent providing and/or coordinating discharge services: Discharge coordination time: Greater than 30 minutes Quality: Stroke Does the patient have a stroke diagnosis?: No Physical Exam Vital Signs: Vital Signs: Last Vital Signs Temp 97.4 F 10/09/21 07:11 Pulse 94 10/09/21 07:11 Resp 18 10/09/21 07:11 BP 157/88 H 10/09/21 07:11 Pulse Ox 98 10/09/21 07:11 BMI result Body Mass Index 32.0 DS: Data Data Completed and Pending Completed studies during hospitalization [Text1]: Procedures Detoxification Services for Substance Abuse Treatment (06/27/21) Labs on day of discharge: Laboratory Results - last 24 hr 10/08/21 10/08/21 10/08/21 10:52 16:21 20:11 POC Glucose 352 H* 275 H 263 H 10/09/21 07:13 POC Glucose 395 H* Discharge Plan Discharge Anticipated Discharge Date/Time: 10/09/21 08:15 Patient Disposition: Home Health Service Discharge Diagnosis: Chest pain, chronic heart failure, AFIB Referrals: [facility] [Outside] - 1 Week Name,MD Matthias [Primary Care Provider] - 1 Week Discharge Medications: New furosemide [Lasix] 40 mg tablet 40 mg PO DAILY Qty: 30 0RF Continued hydralazine 10 mg tablet 1 tab PO BID 0RF carvedilol 25 mg tablet 1 tab PO BID 0RF pravastatin 40 mg tablet 1 tab PO BEDTIME 0RF glipizide 10 mg tablet 1 tab PO BID 0RF cyanocobalamin (vitamin B-12) 1,000 mcg tablet 1 tab PO QAM 0RF metformin 1,000 mg tablet 1 tab PO BID 0RF betamethasone dipropionate 0.05 % ointment 1 appl topical BID 0RF Protocol: Apply to: Apply to: AFFECTED AREAS lisinopril 40 mg tablet 1 tab PO QAM 0RF Eliquis 5 mg Tablet 5 mg PO BID Qty: 60 0RF furosemide [Lasix] 20 mg tablet 20 mg PO DAILY Qty: 10 0RF Discontinued clonidine HCl 0.1 mg tablet 1 tab PO BID 0RF chlorthalidone 25 mg tablet 1 tab PO QAM 0RF diltiazem HCl 240 mg Capsule,Extended Release 24hr 240 mg PO DAILY Qty: 30 0RF Protocol: Hold for SBP/HR < HOLD for SBP < : 90 HOLD for HR < : 60 Discharge Orders: Discharge Order (Routine); Ordered 10/09/21 Ordered By: Luci Abdi Diet: advance to usual diet Activity on Discharge: As tolerated Stand Alone Forms: Patient Portal Discharge page Care Plan Goals: management of heart failure AFIB management Health Concerns: Chronic heart failure chronic alcohol use desorder Plan of Treatment: Take all your medications as directed and follow up with your heart doctor as scheduled Stop taking Clonidine Continue same dose of coreg Cardizem (Diltiazem) is discontinued Lasix dose has been increased to 40 mg daily Make an appointment to go see your Doctor in a week Assessment: as above Discharge Date/Time: 10/09/21 18:15
[2021-10-09 09:48] LABS: B Type Natriuretic Peptide 739 pg/mL (<100)
[2021-10-09 10:26] LABS: Anion Gap 14 (12-20); Blood Urea Nitrogen 19 mg/dL (9-16); Calcium 9.5 mg/dL (8.4-10.2); Carbon Dioxide 33 mmol/L (22-29); Chloride 90 mmol/L (96-108); Creatinine Clr Calc Pharmacy 73.5; Estimated Glomerular Filt Rate > 60; Glucose Random 536 mg/dL (60-115); Potassium 3.3 mmol/L (3.3-5.1); Sodium 134 mmol/L (135-145)
[2021-10-09 11:24] LABS: Glucose, Whole Blood 509 mg/dL (60-115)
[2021-10-09 11:31] VITALS: BP 172/86; PULSE 75; RESP 18; TEMP 36.3; O2SAT 95
[2021-10-09 11:42] LABS: Glucose, Whole Blood 520 mg/dL (60-115)
[2021-10-09] MEDS: dilTIAZem HCL CD 120 MG CAP.ER.DEG PO (12:06)
[2021-10-09] MEDS: glipiZIDE 10 MG TABLET PO ×2 (12:06→17:23)
[2021-10-09] MEDS: metFORMIN HCl 1,000 MG TABLET 1000 MG PO (12:06)
--- NOTE | 2021-10-09 12:29 | P.PNCA_ITS ---
Subjective Subjective Date of Service: 10/09/21 Principal diagnosis: CP, CHF, CMP, chronic afib Interval history: Cardiology follow up for the above. Seen at 1000. Today he is observed sitting in chair. Reports he is feeling good. No respiratory difficulty. No chest pains or palpitations. Leg edema improved. Ambulates in room without difficulty. No dizziness or unsteadiness. Feels ready for discharge. Review of Systems Review of Systems Yes all other systems are reviewed and are negative Physical Exam Vital Signs: Last Vital Signs Temp 97.3 F 10/09/21 11:31 Pulse 75 10/09/21 11:31 Resp 18 10/09/21 11:31 BP 172/86 H 10/09/21 11:31 Pulse Ox 95 10/09/21 11:31 BMI result Body Mass Index 32.0 Const General: cooperative, no acute distress, alert and awake Orientation/consciousness: patient oriented x3 Neck Neck: Yes normal visual inspection and Yes no JVD Resp Effort & Inspection: normal respiratory effort, able to speak in complete sentences and not labored Auscultation: clear to auscultation bilaterally, no crackles, no rales, no rhonchi and no wheezes Cardio Rate: regular rate Rhythm: abnormal rhythm irregularly irregular Heart sounds: S1 normal heart sound present and S2 normal heart sound present Peripheral pulses: Peripheral pulses 2+ throughout Neuro General: patient oriented x3 Extrem Other: trace ankle edema. General: Yes normal to inspection Objective Labs and Meds Result diagrams: 10/06/21 09:49 10/09/21 09:19 Lab results: Laboratory Results - last 24 hr 10/08/21 10/08/21 10/09/21 16:21 20:11 07:13 Sodium Potassium Chloride Carbon Dioxide Anion Gap BUN Creatinine Estim Creat Clear Calc Estimated GFR POC Glucose 275 H 263 H 395 H* Random Glucose Calcium B-Natriuretic Peptide 10/09/21 10/09/21 10/09/21 09:19 09:19 11:19 Sodium 134 L Potassium 3.3 Chloride 90 L Carbon Dioxide 33 H Anion Gap 14 BUN 19 H Creatinine 1.18 Estim Creat Clear Calc 73.5 Estimated GFR > 60 POC Glucose 509 H* Random Glucose 536 H* Calcium 9.5 B-Natriuretic Peptide 739 H 10/09/21 11:38 Sodium Potassium Chloride Carbon Dioxide Anion Gap BUN Creatinine Estim Creat Clear Calc Estimated GFR POC Glucose 520 H* Random Glucose Calcium B-Natriuretic Peptide Progress Note: A&P Assessment and plan (1) Acute on chronic systolic (congestive) heart failure: Status: Acute Assessment and Plan: Acute on chronic systolic heart failure.? Echo done 07/01/2022 with EF 20-25%, moderate left atrial enlargement, mild MR.? BNP elevated at 497 on admission.? He did have some shortness of breath.? He has been given IV Lasix for gentle diuresis.? His breathing is much improved today.? He has some trace residual ankle and foot edema however no other signs indicating acute heart failure.? He normally takes Lasix 20 mg daily at home.? He can be changed to 40 mg daily.? Continue carvedilol and lisinopril for neurohormonal modulation.? Patient can be discharged from a cardiology perspective.? He is followed by a outside cardiolo gy group.? We can arrange follow-up in our office if needed (2) Atrial fibrillation with slow ventricular response: Status: Acute Assessment and Plan: Hx of chronic afib. Diltiazem was added in Aug for rate control. He has been taking the Carvedilol and Diltiazem. Tele monitoring showing Afib with slow ventricular response at times during this admit. Asymptomatic. No pause > 3.4 sec. Diltiazem held and Carvedilol reduced. Tele today shows Afib, IVCD, rates 50s- 80s. On discharge, recommend resume usual Carvedilol 25mg bid and keep off Diltiazem. Continue Eliquis for anticoagulation. (3) Chest pain: Status: Acute Assessment and Plan: Present on admit. Ruled out for ACS. (4) Cardiomyopathy: Status: Acute Assessment and Plan: EF 20-25% on last echo. Has been on Lisinopril and carvedilol for neurohormonal modulation. He will be needing recheck of EF and plan for Bi V ICD as outpt. 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 If needed we can see him for follow up through our cardiology office. (5) LBBB (left bundle branch block): Status: Acute Assessment and Plan: Present on EKGs since 2018 Fall Risk Details Current Medications: Current Medications Acetaminophen (Acetaminophen 325 Mg Tablet) 650 mg PO Q6H PRN PRN Reason: Pain, Mild (Pain Scale 1-3) Apixaban (Apixaban 5 Mg Tablet) 5 mg PO BID [facility] Last Admin: 10/09/21 07:46 Dose: 5 mg Documented by: Carvedilol (Carvedilol 12.5 Mg Tablet) 12.5 mg PO BID [facility]; Protocol Last Admin: 10/09/21 07:46 Dose: 12.5 mg Documented by: Cyanocobalamin (Cyanocobalamin (Vitamin B-12) 1,000 Mcg Tablet) 1,000 mcg PO DAILY [facility] Last Admin: 10/09/21 07:46 Dose: 1,000 mcg Documented by: Dextrose (Dextrose 50 % 25 Gm/50 Ml Vial) 25 gm IVPUSH Q15M PRN; Protocol PRN Reason: per Hypoglycemia Standing Ord. Diltiazem HCl (Diltiazem Hcl Cd 120 Mg Cap.Er.Deg) 120 mg PO DAILY [facility]; Protocol Last Admin: 10/09/21 12:06 Dose: 120 mg Documented by: Furosemide (Furosemide 20 Mg/2 Ml Vial) 20 mg IVPUSH BID@0900,1800 [facility]; Protocol Last Admin: 10/09/21 07:45 Dose: 20 mg Documented by: Furosemide (Furosemide 20 Mg Tablet) 20 mg PO DAILY [facility]; Protocol Last Admin: 10/09/21 07:46 Dose: 20 mg Documented by: Glipizide (Glipizide 10 Mg Tablet) 10 mg PO BIDWM [facility] Last Admin: 10/09/21 12:06 Dose: 10 mg Documented by: Glucose (Glucose Gel 15 Gm Gel..Gram.) 15 gm PO Q15M PRN; Protocol PRN Reason: per Hypoglycemia Standing Ord. Insulin Human Lispro (Insulin Lispro 100 Unit/Ml 3 Ml Vial) 0 unit SUBCUT QIDACHS [facility]; Protocol Last Admin: 10/09/21 11:45 Dose: 10 unit Documented by: Insulin Human Lispro (Insulin Lispro 100 Unit/Ml 3 Ml Vial) 5 unit SUBCUT QIDACHS [facility] Last Admin: 10/09/21 11:45 Dose: 5 unit Documented by: Lisinopril (Lisinopril 10 Mg Tablet) 10 mg PO DAILY [facility]; Protocol Last Admin: 10/09/21 07:46 Dose: 10 mg Documented by: Melatonin (Melatonin 3 Mg Tablet) 3 mg PO BEDTIME PRN PRN Reason: Insomnia Metformin HCl (Metformin Hcl 1,000 Mg Tablet) 1,000 mg PO BID [facility] Last Admin: 10/09/21 12:06 Dose: 1,000 mg Documented by: Ondansetron HCl (Ondansetron Hcl 4 Mg/2 Ml Vial) 4 mg IVPUSH Q8H PRN PRN Reason: Nausea and Vomiting Pravastatin Sodium (Pravastatin Sodium 40 Mg Tablet) 40 mg PO BEDTIME [facility] Last Admin: 10/08/21 21:14 Dose: 40 mg Documented by: Sodium Chloride (0.9 % Sodium Chloride Flush 3 Ml Syringe) 3 ml IVFLUSH QSHIFT [facility] Last Admin: 10/09/21 07:45 Dose: 3 ml Documented by: Triamcinolone Acetonide (Triamcinolone Acet 0.5 % Oint 15 Gm Tube) 1 appl TOPICAL BID [facility] Last Admin: 10/09/21 07:47 Dose: 1 appl Documented by: Time Spent With Patient Time: Total time spent is greater than 50% in coordination of care (as documented) at patient's floor/unit and/or counseling patient: Progress Note: Quality Stroke Does the patient have a stroke diagnosis?: No Procedures Date of Service Date of Service: 10/09/21
--- NOTE | 2021-10-09 13:13 | MHC.CM.PN ---
Per MD, Patient will be medically cleared for dc to home later today after further monitoring of Patient's BS, with services.CM spoke with CCA/CM/Heidi at [phone], informed her of the change in dc plan and she confirmed that Patient was active with [facility]. CM has informed [facility], via [employer], of today's dc. 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 IMM addressed with Patient and the original has been given to him and a copy has been placed on the chart.
--- NOTE | 2021-10-09 15:08 | PM.EVENT ---
Event Note Date of Service: 10/09/21 Event Note: noted to have elevated blood sugars greater than 500 patient eating outside food had a burger Julito meal this afternoon on glipizide 10 mg b.i.d. and Glucophage 1000 mg b.i.d. recommended to start Lantus 10 units at bedtime patient is agreeable strongly recommend to follow diabetic diet will check hemoglobin A1c if blood sugars remains in 500 range this afternoon will cancel the discharge.
--- NOTE | 2021-10-09 15:08 | MHC.CM.PN ---
[facility] is unable to accept Patient back. [facility] has accepted Patient and dc summary has been sent to them via [employer] and they are aware of today's dc.
[2021-10-09 15:22] VITALS: BP 135/77; PULSE 84; RESP 17; TEMP 36.2; O2SAT 95
[2021-10-09 17:08] LABS: Glucose, Whole Blood 148 mg/dL (60-115)
[2021-10-09 17:14] LABS: Glucose, Whole Blood 163 mg/dL (60-115)
--- NOTE | 2021-10-09 17:18 | P.F2F_ITS ---
Service Date Service Date: 10/09/21 Encounter Date of encounter: 10/09/21 Reasons for Services Signs and symptoms assessed: Admitted for acute on chronic systolic heart failure exacerbation medications adjusted feeling better need nursing for medication and heart failure education and monitoring Reason for retirement: diabetic teaching and medication management Homebound: Leaving the home is medically contraindicated at this time without the asist of a device and/or another person due th the listed conditions above and below. Reason homebound: weakness related to hospital stay Certification: Based on the above findings, I certify that this patient is confined to the home and needs intermittent retirement care, physical therapy and/or speech therapy, or continues to need occupational therapy. The patient is under my care, and I have initiated the establishment of the plan of care. The patient will be followed by a physician who will periodically review the plan of care.
== END 2021-10-09 18:15 | disposition home health service (06) | DRG 291 ==
LOC: HO.ED 14:07 → HO.EDOVER 18:30 → HO.IMC 10-07 19:24
PROVIDERS: Nurse Practitioner Family; Admitting Provider Internal Medicine; Emergency Provider Emergency Medicine Emergency Medical Services; PCP Internal Medicine Geriatric Medicine; Visit Provider Internal Medicine
DX: I11.0 Hypertensive heart disease with heart failure (principal); I50.23 Acute on chronic systolic (congestive) heart failure; I48.20 Chronic atrial fibrillation, unspecified; E78.5 Hyperlipidemia, unspecified; I42.9 Cardiomyopathy, unspecified; R00.1 Bradycardia, unspecified; E11.9 Type 2 diabetes mellitus without complications; Z20.822 Contact with and (suspected) exposure to COVID-19; Z87.891 Personal history of nicotine dependence; Z79.01 Long term (current) use of anticoagulants; Z79.84 Long term (current) use of oral hypoglycemic drugs; Z79.899 Other long term (current) drug therapy
CPT/HCPCS: 36415; 71045; 80048; 80053; 80307; 82077; 82947; 83690; 83880; 84484; 85025; 85610; 85730; 87635; 93005; 94640; 96374; 96375; 97161; 99285; J1940; J2270; J2405

== ENCOUNTER 2021-10-23 07:37 | Inpatient (IN) | payer OTHER, SELFPAY ==
[2021-10-23] VITALS (9 sets, daily range): BP systolic 149–186; BP diastolic 79–118; PULSE 70–129; RESP 13–21; TEMP 36.1–36.9; O2SAT 93–97; BMI 30.8
--- NOTE | 2021-10-23 | ECG_ITS ---
Test Reason : sob Blood Pressure : / mmHG Vent. Rate : 108 BPM Atrial Rate : 000 BPM P-R Int : 000 ms QRS Dur : 190 ms QT Int : 378 ms P-R-T Axes : 000 -48 138 degrees QTc Int : 506 ms Atrial fibrillation with rapid ventricular response Left axis deviation Left bundle branch block Abnormal ECG When compared with ECG of 09-OCT-2021 11:23, No significant change was found Referred By: Generic ED Physician Electronically Signed By:ISAEL JOYCE MD
--- NOTE | ~2021-10-23 | MR_ITS ---
EXAMINATION: MR BRAIN WITHOUT CONTRAST CLINICAL INFORMATION: Hallucinations, mood change. History of alcohol abuse. COMPARISON: Head CT 09/29/2021. TECHNIQUE: Multiplanar, multisequence imaging of the brain was performed without intravenous contrast. FINDINGS: There is no acute infarction, mass, hemorrhage, or extra-axial collection. The ventricles and sulci are commensurate with mild degree of brain parenchymal volume loss noted. There is mild T2/FLAIR hyperintensity within the periventricular cerebral white matter, presumably on the basis of chronic microangiopathy. There is no hydrocephalus. Small chronic lacunar infarcts are seen within the left inferior cerebellum. Left vertebral artery flow void is segmentally absent likely representing the posterior circulation appears diminutive, likely on the basis of -type belt lacer. The extracranial structures are within normal limits. MR/MR head/brain wo con IMPRESSION: No acute intracranial abnormality. Specifically, no infarct, mass, or hemorrhage is seen. Left vertebral artery appears segmentally absent likely representing occlusion or slow flow. Chronic lacunar infarcts are seen within left inferior cerebellum. Consider head and neck MRA for further evaluation.
--- NOTE | ~2021-10-23 | CT_ITS ---
CT ANGIOGRAM NECK WITH CONTRAST CT ANGIOGRAM BRAIN WITH CONTRAST CLINICAL INFORMATION: Question left vertebral artery occlusion. COMPARISON: MRI brain and MRA head and neck 10/25/2021. Brain MRI 10/24/2021. TECHNIQUE: Test bolus sequences followed by intravenous administration 75 mL of Omnipaque 350. Helical imaging was performed in the axial plane from the thoracic inlet to the skull vertex. Delayed postcontrast imaging of the head was also performed. The data was processed at the clinical technologist workstation for generation of MIP sequences. Angled MIPs and volume rendered reformatted images were also generated at an offline 3D workstation under concurrent supervision. Stenoses are assessed in accordance with NASCET criteria unless otherwise indicated. This CT examination was performed using dose optimization techniques as appropriate, variously including the following: *Automated exposure control *Adjustment of mA and/or kV according to patient size (this includes techniques or standardized protocols for targeted exams where dose is matched to indication/reason for exam; i.e. extremities or head) *Use of iterative reconstruction technique FINDINGS: BRAIN: [There is no intracranial hemorrhage, hydrocephalus, extra-axial surface collection, midline shift, or other herniation pattern. Kwok to white matter differentiation is diffusely maintained without evidence of an evolved acute territorial infarct. The basilar cisterns are preserved. No significant soft tissue abnormality. No acute osseous abnormality. The paranasal sinuses and the mastoid air cells are well aerated.] CERVICAL SOFT TISSUES AND LUNG APICES: Imaged upper lungs are clear. There is multilevel cervical spondylosis. NECK CTA: [There is a classic 3 vessel configuration of the aortic arch. Left vertebral artery is occluded just beyond its origin with faint reconstitution throughout portions of the V2 segment. The V3 segment of the left vertebral artery is occluded. Right vertebral artery remains patent throughout its cervical course, difficult to assess secondary to artifact. Both common carotid arteries are normal in course and caliber.] There is atherosclerotic calcification involving the carotid bifurcations bilaterally without significant stenosis involving the internal carotid arteries. BRAIN CTA: [The intradural left vertebral artery is occluded. The intradural right vertebral artery is occluded just distal to the PICA origin. 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 Mid to distal basilar artery widely patent. 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 Atherosclerotic calcification throughout the carotid siphons bilaterally resulting in moderate stenoses of the left cavernous ICA segment, the right paraclinoid ICA segment, and the left supraclinoid ICA segment. CT/CT angio head neck IMPRESSION: - Left vertebral artery is occluded just beyond its origin with faint reconstitution throughout portions of the V2 segment. The V3 segment of the left vertebral artery is occluded. - [The intradural left vertebral artery is occluded. The intradural right vertebral artery is occluded just distal to the PICA origin. 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 Mid to distal basilar artery widely patent. 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 - Atherosclerotic calcification throughout the carotid siphons bilaterally resulting in moderate stenoses of the left cavernous ICA segment, the right paraclinoid ICA segment, and the left supraclinoid ICA segment. -No acute intracranial findings.
--- NOTE | ~2021-10-23 | XR_ITS ---
EXAMINATION: XR CHEST CLINICAL INFORMATION: Shortness of breath. COMPARISON: 10/06/2021 portable chest. TECHNIQUE: 2 views of the chest were obtained. FINDINGS: There is mild prominence of the pulmonary vascularity. The heart is mildly enlarged. The mediastinal structures are unremarkable. XR/XR chest 2V IMPRESSION: Mild prominence of the pulmonary vasculature most consistent with mild CHF, increased from the previous study.
--- NOTE | ~2021-10-23 | MR_ITS ---
MR ANGIOGRAPHY BRAIN WITHOUT CONTRAST MRA NECK WITHOUT CONTRAST CLINICAL INFORMATION: Question vertebral artery occlusion. COMPARISON: MRI brain 10/24/2021. TECHNIQUE: Noncontrast [id number] MRA of the head and neck obtained. Vascular post-processing, including 2-dimensional and 3-dimensional reformatted images were created and reviewed on an independent workstation under concurrent physician supervision. Stenoses are graded per criteria similar to NASCET. FINDINGS: MRA head: This is a mostly nondiagnostic motion degraded MRA of the head. No definite antegrade flow related signal is seen within the proximal intradural vertebral arteries nor the proximal basilar artery however assessment is very limited by the degree of artifact on this MRA. A CTA of the head is recommended to exclude vertebral artery occlusion or severe stenosis to explain these findings. Nondiagnostic assessment for aneurysms given the degree of motion artifact. MRA NECK: This is a very limited motion degraded MRA of the neck. Left vertebral artery is small in size and not diagnostically assessed within portions of this vessel not definitively seen. Nondiagnostic assessment of the proximal internal carotid artery secondary to motion artifact. The common carotid arteries and the cervical internal carotid arteries to remain patent. MR/MR angio neck wo con IMPRESSION: - Mostly nondiagnostic motion degraded MRA of the head. No definite antegrade flow related signal is seen within the proximal intradural vertebral arteries nor the proximal basilar artery however however assessment is very limited by the degree of artifact on this MRA and these findings could be artifactual. A CTA of the head is recommended to exclude vertebral artery occlusion or severe stenosis to explain these findings. There was normal flow void within the basilar artery on the previous MRI suggesting that this vessel is patent. Nondiagnostic assessment for aneurysms given the degree of artifact. - Limited and motion degraded partially nondiagnostic MRA of the neck. Portions of the left vertebral artery are not visualized though very limitedly assessed given the degree of motion artifact. Carotid bifurcations not diagnostically assessed secondary to artifact. CTA of the neck as clinically indicated.
--- NOTE | ~2021-10-23 | MR_ITS ---
MR ANGIOGRAPHY BRAIN WITHOUT CONTRAST MRA NECK WITHOUT CONTRAST CLINICAL INFORMATION: Question vertebral artery occlusion. COMPARISON: MRI brain 10/24/2021. TECHNIQUE: Noncontrast [id number] MRA of the head and neck obtained. Vascular post-processing, including 2-dimensional and 3-dimensional reformatted images were created and reviewed on an independent workstation under concurrent physician supervision. Stenoses are graded per criteria similar to NASCET. FINDINGS: MRA head: This is a mostly nondiagnostic motion degraded MRA of the head. No definite antegrade flow related signal is seen within the proximal intradural vertebral arteries nor the proximal basilar artery however assessment is very limited by the degree of artifact on this MRA. A CTA of the head is recommended to exclude vertebral artery occlusion or severe stenosis to explain these findings. Nondiagnostic assessment for aneurysms given the degree of motion artifact. MRA NECK: This is a very limited motion degraded MRA of the neck. Left vertebral artery is small in size and not diagnostically assessed within portions of this vessel not definitively seen. Nondiagnostic assessment of the proximal internal carotid artery secondary to motion artifact. The common carotid arteries and the cervical internal carotid arteries to remain patent. MR/MR angio head wo con IMPRESSION: - Mostly nondiagnostic motion degraded MRA of the head. No definite antegrade flow related signal is seen within the proximal intradural vertebral arteries nor the proximal basilar artery however however assessment is very limited by the degree of artifact on this MRA and these findings could be artifactual. A CTA of the head is recommended to exclude vertebral artery occlusion or severe stenosis to explain these findings. There was normal flow void within the basilar artery on the previous MRI suggesting that this vessel is patent. Nondiagnostic assessment for aneurysms given the degree of artifact. - Limited and motion degraded partially nondiagnostic MRA of the neck. Portions of the left vertebral artery are not visualized though very limitedly assessed given the degree of motion artifact. Carotid bifurcations not diagnostically assessed secondary to artifact. CTA of the neck as clinically indicated.
--- NOTE | 2021-10-23 08:01 | ED_ITS ---
HPI - SOB/Dyspnea General Chief Complaint: Dyspnea Stated Complaint: sob Time Seen by Provider: 10/23/21 08:01 Source: patient Mode of arrival: ambulatory Limitations: no limitations History of Present Illness HPI Narrative: Patient is a 71 year old male presenting to the emergency department today with shortness of breath. Patient states that starting this morning, he began to have worsening shortness of breath. Patient denies any dizziness, lightheadedness, abdominal pain, nausea, vomiting, fever, chills, blurry vision, double vision, loss of vision, chest pain, back pain, night sweats, pain with urination, increased urinary frequency, increased urinary urgency, blood in his urine or stool, syncope or a near syncopal episode, recent trauma or falls, bowel incontinence, bladder incontinence, bowel retention, bladder retention, or any other complaints at this time. MD elicited complaint: shortness of breath Pertinent past history: congestive heart failure Onset (ago): hour(s) Timing: constant Severity: mild Exacerbating factors: nothing Relieving factors: nothing Known history of: congestive heart failure Associated symptoms: denies other symptoms Treatment prior to arrival: none Related Data Home Medications Medication Instructions Recorded Confirmed betamethasone dipropionate 0.05 % 1 appl TOPICAL BID 06/27/21 10/23/21 topical ointment carvedilol 25 mg tablet 1 tab PO BID 06/27/21 10/23/21 cyanocobalamin (vitamin B-12) 1 tab PO DAILY 06/27/21 10/23/21 1,000 mcg tablet glipizide 10 mg tablet 1 tab PO BID 06/27/21 10/23/21 hydralazine 10 mg tablet 1 tab PO BID 06/27/21 10/23/21 lisinopril 40 mg tablet 1 tab PO DAILY 06/27/21 10/23/21 metformin 1,000 mg tablet 1 tab PO BID 06/27/21 10/23/21 pravastatin 40 mg tablet 1 tab PO BEDTIME 06/27/21 10/23/21 Previous Rx's Medication Instructions Recorded apixaban 5 mg tablet (Eliquis) 5 mg PO BID #60 tab 07/01/21 furosemide 40 mg tablet (Lasix) 40 mg PO DAILY #30 tab 10/09/21 Allergies Allergy/AdvReac Type Severity Reaction Status Date / Time No Known Allergies Allergy Verified 09/22/21 12:18 Review of Systems Constitutional: Constitutional: Reports no additional constitutional complaints, Denies chills, Denies fever(s) and Denies night sweats Eyes: Eyes: Reports no additional eye complaints, Denies blurry vision, Denies change in vision, Denies diplopia, Denies eye discharge, Denies loss of vision and Denies eye pain ENT: Denies dizziness Cardiovascular: Cardiovascular: Reports no additional cardiovascular complaints, Denies chest pain, Denies lightheadedness, Denies Loss of Consciousness and Reports dyspnea Respiratory: Respiratory: Reports no additional respiratory complaints and Reports dyspnea Gastrointestinal: Gastrointestinal: Reports no additional gastrointestinal complaints, Denies abdominal pain, Denies melena, Denies hematochezia, Denies change in bowel habits and Denies change in stool character Genitourinary: Genitourinary: Reports no additional male genitourinary complaints, Denies hematuria, Denies oliguria, Denies difficulty urinating, Denies dysuria, Denies urinary frequency, Denies urinary hesitancy, Denies urinary incontinence and Denies urinary urgency Musculoskeletal: Musculoskeletal: Reports no additional musculoskeletal com plaints, Denies numbness and Denies tingling Neurologic: Denies dizziness, Denies loss of vision, Denies numbness and Denies tingling Psychiatric: Psychiatric: Reports no additional psychiatric complaints Endocrine: Endocrine: Reports no additional endocrine complaints Hematologic/Lymphatic: Hematologic/Lymphatic: Reports no additional hematologic/lymphatic complaints Allergic/Immunologic: Allergic/Immunologic: Reports no additional allergic/immunologic complaints FOR[facility]LY [facility], [facility] Past Medical History Attestation statement: The following information was validated with the patient. Source: old records reviewed Medical History Atrial fibrillation with rapid ventricular response Atrial fibrillation with slow ventricular response Cardiomyopathy Chronic systolic CHF (congestive heart failure) Diabetes LBBB (left bundle branch block) Family History Family History Mother HTN (hypertension) Father CAD (coronary artery disease) HTN (hypertension) Social History Social History Household Members: None Housing: Apartment Do you presently have visiting nurse or other home services: No Alcohol intake: current Alcohol intake frequency: 3 or more drinks per day Alcohol type: hard liquor Patient Tobacco Use Status: Former Tobacco user Advance Directives: Yes Advance Directives on File: Yes Advance Directives Date on File: 06/27/21 service: No Current occupational status: retired Physical Exam Vital Signs: Vital Signs: Last Vital Signs Temp 98.4 F 10/23/21 08:00 Pulse 106 H 10/23/21 12:11 Resp 16 10/23/21 12:11 BP 179/104 H 10/23/21 12:11 Pulse Ox 97 10/23/21 12:11 BMI result Body Mass Index 30.8 Const: General: cooperative, no acute distress, alert and awake Nutritional Appearance: well nourished Orientation/consciousness: patient oriented x3 Limitations: no limitations HEENT: Head: Yes normal to inspection and Yes atraumatic Ears: hearing grossly normal bilaterally and external ears normal General nose exam: Normal external nose present, no nasal discharge noted and no epistaxis Face and sinus: Yes normal facial exam, No abrasion and No laceration Mouth: Normal oral and palatal mucosa present, no drooling and no muffled voice Eyes: General: appearance normal, both eyes and all related structures Periorbital: periorbital findings normal Eyelids: Yes eyelids normal Conjunctivae: conjunctivae normal Pupils: Equal, round and reactive pupils present EOM: EOMs intact bilaterally Neck: Neck: Yes normal visual inspection, Yes full ROM and Yes no lymphadenopathy Chest: Chest palpation & inspection: normal inspection of the chest Resp: Effort & Inspection: able to speak in complete sentences, labored and tachypneic Auscultation: wheezes scattered wheezes Cardio: Rate: tachycardic Rhythm: abnormal rhythm (patient has a baseline of atrial fibrillation and is mildly tachycardic now) irregularly irregular GI: Inspection: Yes normal to inspection Neuro: General: patient oriented x3 and moves all extremities Cranial nerves: Yes Equal, round and reactive pupils present Cognition (Neuro): normal cognition Motor exam (neuro): 5/5 motor strength present throughout Sensory Exam: Normal double simultaneous stimulation for sensation Coordination: [id number] test normal Extrem: General: Yes normal to inspection, Yes full ROM and Yes capillary refill normal Psych: Appearance: grossly normal Mental Status: mental status grossly normal Affect: normal affect Attitude: cooperative Thought process: Normal thought process present Thought content: Normal thought content present Insight: Good insight present (Psych) MDM - SOB/Dyspnea MDM Narrative Medical decision making narrative: Patient is a 71 year old male presenting to the emergency department today with shortness of breath. Patient's physical exam showed bilateral scattered wheezes. Patient was initally hypoxic at 90% on RA, he was started on 2L NC which brought him up to 98%. Patient has atrial fibrillation at base line, and today his rate was mildly elevated in the low 100s. Patient's blood work showed an elevated BNP and white blood cell count. Patient's EKG showed atrial fibrillation with a mildly elevated rate. Patient's chest x-ray showed worsening pulmonary congestion/CHF exacerbation. Patient's clinical presentation is not consistent with sepsis but rather an acute CHF exacerbation. I explained my physical exam findings as well as all test results to the patient. I answered all questions asked by the patient. Patient received IV lasix and a breathing treatment which he stated helped his symptoms significantly. I spoke to Dr. Nuñez who agreed to admission of the patient for CHF exacerbation. Differential Diagnosis Differential diagnosis: Likely congestive heart failure and pleural effusion Medical Records Attestation: I reviewed the patient's medical records. Lab Data Attestation: I reviewed the patient's lab results. Result diagrams: 10/23/21 08:17 10/23/21 08:50 Labs: Lab Results 10/23/21 10/23/21 10/23/21 Range/Units 08:17 08:17 08:50 WBC 12.2 H (4.8-10.8) X10*3/uL RBC 4.78 (4.60-5.80) X10*6/uL Hgb 13.6 L (14.0-18.0) g/dl Hct 41.3 L (42.0-52.0) % MCV 86.4 (80.0-98.0) fL MCH 28.5 (27.0-33.0) pg MCHC 32.9 (31.0-36.0) g/dl RDW 14.0 (11.0-16.0) % Plt Count 301 D (160-400) X10*3/uL MPV 10.8 (9.4-12.4) fL Immature Gran % (Auto) 0.4 (0.0-0.4) % Neut % (Auto) 75.7 H (45-73) % Lymph % (Auto) 14.4 L (20-40) % [place] % (Auto) 7.1 (2-11) % Eos % (Auto) 1.9 (0-4) % Baso % (Auto) 0.5 (0-2) % Lymph # (Auto) 1.8 (1.2-4.9) X10*3/uL [place] # (Auto) 0.9 (0.1-1.2) X10*3/uL Eos # (Auto) 0.2 (0.0-0.4) X10*3/uL Baso # (Auto) 0.1 (0.0-0.2) X10*3/uL Abs Immat Gran (auto) 0.05 H (0.00-0.03) X10*3/uL Absolute Neuts (auto) 9.2 H (2.0-8.3) x10*3/uL Absolute Nucleated RBC 0.000 (0.0-0.012) X10*3/uL Nucleated RBC % (auto) 0.0 (0.0-0.2) /100WBC PT (9.9-13.0) SEC INR (0.9-1.1) APTT (24.1-38.0) SEC VBG pH (7.32-7.43) VBG pCO2 mmHg VBG pO2 mmHg VBG HCO3 (22-26) mmol/L VBG O2 Saturation % VBG Base Excess mmol/L Sodium 138 (135-145) mmol/L Potassium 4.1 D (3.3-5.1) mmol/L Chloride 97 (96-108) mmol/L Carbon Dioxide 29 (22-29) mmol/L Anion Gap 16 (12-20) BUN 12 (9-16) mg/dL Creatinine 0.83 (0.5-1.4) mg/dL Estim Creat Clear Calc 104.1 Estimated GFR > 60 Random Glucose 272 H D (60-115) mg/dL Lactic Acid (0.5-2.0) mmol/L Calcium 9.1 (8.4-10.2) mg/dL Total Bilirubin 0.8 (0.0-1.0) mg/dL AST 22 (5-37) U/L ALT 19 (0-40) U/L Alkaline Phosphatase 84 D (39-117) U/L Troponin I High Sens 15.5 (<3.5-35.0) ng/L B-Natriuretic Peptide 605 H (<100) pg/mL Total Protein 6.5 (6.5-8.0) g/dL Albumin 3.7 (3.5-5.0) g/dL Lipase 10 (8-78) U/L Ethyl Alcohol mg/dL COVID-19 (BRAVO) (Negative) COVID-19 Clin Com Influenza Type A (KIM) (Negative) Influenza Type B (KIM) (Negative) Influenza A & B Note 10/23/21 10/23/21 10/23/21 Range/Units 08:50 08:54 09:25 WBC (4.8-10.8) X10*3/uL RBC (4.60-5.80) X10*6/uL Hgb (14.0-18.0) g/dl Hct (42.0-52.0) % MCV (80.0-98.0) fL MCH (27.0-33.0) pg MCHC (31.0-36.0) g/dl RDW (11.0-16.0) % Plt Count (160-400) X10*3/uL MPV (9.4-12.4) fL Immature Gran % (Auto) (0.0-0.4) % Neut % (Auto) (45-73) % Lymph % (Auto) (20-40) % [place] % (Auto) (2-11) % Eos % (Auto) (0-4) % Baso % (Auto) (0-2) % Lymph # (Auto) (1.2-4.9) X10*3/uL [place] # (Auto) (0.1-1.2) X10*3/uL Eos # (Auto) (0.0-0.4) X10*3/uL Baso # (Auto) (0.0-0.2) X10*3/uL Abs Immat Gran (auto) (0.00-0.03) X10*3/uL Absolute Neuts (auto) (2.0-8.3) x10*3/uL Absolute Nucleated RBC (0.0-0.012) X10*3/uL Nucleated RBC % (auto) (0.0-0.2) /100WBC PT (9.9-13.0) SEC INR (0.9-1.1) APTT (24.1-38.0) SEC VBG pH 7.42 (7.32-7.43) VBG pCO2 48 mmHg VBG pO2 47 mmHg VBG HCO3 31 H (22-26) mmol/L VBG O2 Saturation 68.0 % VBG Base Excess 6.2 mmol/L Sodium (135-145) mmol/L Potassium (3.3-5.1) mmol/L Chloride (96-108) mmol/L Carbon Dioxide (22-29) mmol/L Anion Gap (12-20) BUN (9-16) mg/dL Creatinine (0.5-1.4) mg/dL Estim Creat Clear Calc Estimated GFR Random Glucose (60-115) mg/dL Lactic Acid 1.7 (0.5-2.0) mmol/L Calcium (8.4-10.2) mg/dL Total Bilirubin (0.0-1.0) mg/dL AST (5-37) U/L ALT (0-40) U/L Alkaline Phosphatase (39-117) U/L Troponin I High Sens (<3.5-35.0) ng/L B-Natriuretic Peptide (<100) pg/mL Total Protein (6.5-8.0) g/dL Albumin (3.5-5.0) g/dL Lipase (8-78) U/L Ethyl Alcohol < 10 mg/dL COVID-19 (BRAVO) (Negative) COVID-19 Clin Com Influenza Type A (KIM) (Negative) Influenza Type B (KIM) (Negative) Influenza A & B Note 10/23/21 10/23/21 10/23/21 Range/Units 09:46 09:46 11:19 WBC (4.8-10.8) X10*3/uL RBC (4.60-5.80) X10*6/uL Hgb (14.0-18.0) g/dl Hct (42.0-52.0) % MCV (80.0-98.0) fL MCH (27.0-33.0) pg MCHC (31.0-36.0) g/dl RDW (11.0-16.0) % Plt Count (160-400) X10*3/uL MPV (9.4-12.4) fL Immature Gran % (Auto) (0.0-0.4) % Neut % (Auto) (45-73) % Lymph % (Auto) (20-40) % [place] % (Auto) (2-11) % Eos % (Auto) (0-4) % Baso % (Auto) (0-2) % Lymph # (Auto) (1.2-4.9) X10*3/uL [place] # (Auto) (0.1-1.2) X10*3/uL Eos # (Auto) (0.0-0.4) X10*3/uL Baso # (Auto) (0.0-0.2) X10*3/uL Abs Immat Gran (auto) (0.00-0.03) X10*3/uL Absolute Neuts (auto) (2.0-8.3) x10*3/uL Absolute Nucleated RBC (0.0-0.012) X10*3/uL Nucleated RBC % (auto) (0.0-0.2) /100WBC PT (9.9-13.0) SEC INR (0.9-1.1) APTT (24.1-38.0) SEC VBG pH (7.32-7.43) VBG pCO2 mmHg VBG pO2 mmHg VBG HCO3 (22-26) mmol/L VBG O2 Saturation % VBG Base Excess mmol/L Sodium (135-145) mmol/L Potassium (3.3-5.1) mmol/L Chloride (96-108) mmol/L Carbon Dioxide (22-29) mmol/L Anion Gap (12-20) BUN (9-16) mg/dL Creatinine (0.5-1.4) mg/dL Estim Creat Clear Calc Estimated GFR Random Glucose (60-115) mg/dL Lactic Acid (0.5-2.0) mmol/L Calcium (8.4-10.2) mg/dL Total Bilirubin (0.0-1.0) mg/dL AST (5-37) U/L ALT (0-40) U/L Alkaline Phosphatase (39-117) U/L Troponin I High Sens 23.3 D (<3.5-35.0) ng/L B-Natriuretic Peptide (<100) pg/mL Total Protein (6.5-8.0) g/dL Albumin (3.5-5.0) g/dL Lipase (8-78) U/L Ethyl Alcohol mg/dL COVID-19 (BRAVO) Negative (Negative) COVID-19 Clin Com See Note Influenza Type A (KIM) Negative (Negative) Influenza Type B (KIM) Negative (Negative) Influenza A & B Note See Note 10/23/21 Range/Units 11:19 WBC (4.8-10.8) X10*3/uL RBC (4.60-5.80) X10*6/uL Hgb (14.0-18.0) g/dl Hct (42.0-52.0) % MCV (80.0-98.0) fL MCH (27.0-33.0) pg MCHC (31.0-36.0) g/dl RDW (11.0-16.0) % Plt Count (160-400) X10*3/uL MPV (9.4-12.4) fL Immature Gran % (Auto) (0.0-0.4) % Neut % (Auto) (45-73) % Lymph % (Auto) (20-40) % [place] % (Auto) (2-11) % Eos % (Auto) (0-4) % Baso % (Auto) (0-2) % Lymph # (Auto) (1.2-4.9) X10*3/uL [place] # (Auto) (0.1-1.2) X10*3/uL Eos # (Auto) (0.0-0.4) X10*3/uL Baso # (Auto) (0.0-0.2) X10*3/uL Abs Immat Gran (auto) (0.00-0.03) X10*3/uL Absolute Neuts (auto) (2.0-8.3) x10*3/uL Absolute Nucleated RBC (0.0-0.012) X10*3/uL Nucleated RBC % (auto) (0.0-0.2) /100WBC PT 12.9 (9.9-13.0) SEC INR 1.1 (0.9-1.1) APTT 37.0 (24.1-38.0) SEC VBG pH (7.32-7.43) VBG pCO2 mmHg VBG pO2 mmHg VBG HCO3 (22-26) mmol/L VBG O2 Saturation % VBG Base Excess mmol/L Sodium (135-145) mmol/L Potassium (3.3-5.1) mmol/L Chloride (96-108) mmol/L Carbon Dioxide (22-29) mmol/L Anion Gap (12-20) BUN (9-16) mg/dL Creatinine (0.5-1.4) mg/dL Estim Creat Clear Calc Estimated GFR Random Glucose (60-115) mg/dL Lactic Acid (0.5-2.0) mmol/L Calcium (8.4-10.2) mg/dL Total Bilirubin (0.0-1.0) mg/dL AST (5-37) U/L ALT (0-40) U/L Alkaline Phosphatase (39-117) U/L Troponin I High Sens (<3.5-35.0) ng/L B-Natriuretic Peptide (<100) pg/mL Total Protein (6.5-8.0) g/dL Albumin (3.5-5.0) g/dL Lipase (8-78) U/L Ethyl Alcohol mg/dL COVID-19 (BRAVO) (Negative) COVID-19 Clin Com Influenza Type A (KIM) (Negative) Influenza Type B (KIM) (Negative) Influenza A & B Note Imaging Data Chest x-ray: Attestation: I personally reviewed and interpreted this imaging study as follows: My impression: CHF exaxcerbation. Radiologist's impression: EXAMINATION: XR CHEST CLINICAL INFORMATION: Shortness of breath. COMPARISON: 10/06/2021 portable chest. TECHNIQUE: 2 views of the chest were obtained. FINDINGS: There is mild prominence of the pulmonary vascularity. The heart is mildly enlarged. The mediastinal structures are unremarkable. XR/XR chest 2V IMPRESSION: Mild prominence of the pulmonary vasculature most consistent with mild CHF, increased from the previous study. Dictated By: Maurisio Paige MD Signed By: Electronically signed by Maurisio Paige MD 10/23/21 0815 ECG Data Attestation: I personally reviewed and interpreted this ECG as follows: ECG interpretation date: 10/23/21 ECG interpretation time: 07:58 Prior ECG tracings: available for review Interpretation: Vent. Rate: 108 BPM ? ? Atrial Rate: 000 BPM P-R Int: 000 ms? QRS Dur: 190 ms QT Int: 378 ms ? ? ? P-R-T Axes: 000 -48 138 degrees QTc Int: 506 ms ? Atrial fibrillation with rapid ventricular response Left axis deviation Left bundle branch block Abnormal ECG When compared with ECG of 09-OCT-2021 11:23, No significant change was found ? Dictated By: Xavier Menon MD Signed By: Electronically signed by Xavier Menon MD 10/23/21 [id number] Discharge Plan Discharge Clinical Impression: CHF (congestive heart failure), Shortness of breath Patient Disposition: Admitted As Inpatient Prescriptions: No Action hydralazine 10 mg tablet 1 tab PO BID 0RF carvedilol 25 mg tablet 1 tab PO BID 0RF pravastatin 40 mg tablet 1 tab PO BEDTIME 0RF glipizide 10 mg tablet 1 tab PO BID 0RF cyanocobalamin (vitamin B-12) 1,000 mcg tablet 1 tab PO DAILY 0RF metformin 1,000 mg tablet 1 tab PO BID 0RF betamethasone dipropionate 0.05 % ointment 1 appl topical BID 0RF Protocol: Apply to: Apply to: AFFECTED AREAS lisinopril 40 mg tablet 1 tab PO DAILY 0RF Eliquis 5 mg Tablet 5 mg PO BID Qty: 60 0RF furosemide [Lasix] 40 mg tablet 40 mg PO DAILY Qty: 30 0RF Print Language: Palauan
[2021-10-23 08:36] LABS: MANUAL DIFF FLAG NO
[2021-10-23 08:40] LABS: Basophils Absolute Auto 0.1 X10*3/uL (0.0-0.2); Basophils Percent Auto 0.5 % (0-2); Eosinophils Absolute Auto 0.2 X10*3/uL (0.0-0.4); Eosinophils Percent Auto 1.9 % (0-4); Hematocrit 41.3 % (42.0-52.0); Hemoglobin 13.6 g/dl (14.0-18.0); Imm Gran Abs Auto 0.05 X10*3/uL (0.00-0.03); Imm Gran Pct Auto 0.4 % (0.0-0.4); Lymphocytes Absolute Auto 1.8 X10*3/uL (1.2-4.9); Lymphocytes Percent Auto 14.4 % (20-40); Mean Corpuscular HGB Conc 32.9 g/dl (31.0-36.0); Mean Corpuscular Hemoglobin 28.5 pg (27.0-33.0); Mean Corpuscular Volume 86.4 fL (80.0-98.0); Mean Platelet Volume 10.8 fL (9.4-12.4); Monocytes Absolute Auto 0.9 X10*3/uL (0.1-1.2); Monocytes Percent Auto 7.1 % (2-11); Neutrophils Absolute Auto 9.2 x10*3/uL (2.0-8.3); Neutrophils Percent Auto 75.7 % (45-73); Platelet Count 301 X10*3/uL (160-400); Red Blood Count 4.78 X10*6/uL (4.60-5.80); White Blood Count 12.2 X10*3/uL (4.8-10.8)
[2021-10-23 09:00] LABS: B Type Natriuretic Peptide 605 pg/mL (<100); Troponin-I High Sensitivity 15.5 ng/L (<3.5-35.0)
[2021-10-23 09:02] LABS: VBG Base Excess 6.2 mmol/L; VBG HCO3 31 mmol/L (22-26); VBG pCO2 48 mmHg; VBG pH 7.42 (7.32-7.43); VBG pO2 47 mmHg
[2021-10-23 09:02] LABS: Venous Blood Gas Refer to POC result
[2021-10-23] MEDS: Albuterol/Iprat 2.5/0.5MG 3 ML AMPUL.NEB INHALE ×2 (09:11→22:21)
[2021-10-23 09:16] LABS: Alanine Aminotransferase 19 U/L (0-40); Albumin Level 3.7 g/dL (3.5-5.0); Alkaline Phosphatase 84 U/L (39-117); Anion Gap 16 (12-20); Aspartate Amino Transferase 22 U/L (5-37); Bilirubin Total 0.8 mg/dL (0.0-1.0); Blood Urea Nitrogen 12 mg/dL (9-16); Calcium 9.1 mg/dL (8.4-10.2); Carbon Dioxide 29 mmol/L (22-29); Chloride 97 mmol/L (96-108); Creatinine Clr Calc Pharmacy 104.1; Estimated Glomerular Filt Rate > 60; Glucose Random 272 mg/dL (60-115); Lipase 10 U/L (8-78); Potassium 4.1 mmol/L (3.3-5.1); Sodium 138 mmol/L (135-145); Total Protein 6.5 g/dL (6.5-8.0)
[2021-10-23 09:23] LABS: Ethanol < 10 mg/dL
[2021-10-23 09:46] LABS: Lactic Acid 1.7 mmol/L (0.5-2.0)
[2021-10-23 10:14] LABS: IDNOW Serial# 16C4AD1C
[2021-10-23 10:15] LABS: COVID-19 Test Negative (Negative); Influenza A Negative (Negative); Influenza B2 Negative (Negative)
[2021-10-23] MEDS: Furosemide 40 MG/4 ML VIAL IVPUSH ×2 (10:39→18:50)
[2021-10-23 11:29] LABS: INTERNATIONAL NORM RATIO 1.1 (0.9-1.1); Prothrombin Time 12.9 SEC (9.9-13.0)
[2021-10-23 11:45] LABS: Troponin-I High Sensitivity 23.3 ng/L (<3.5-35.0)
--- NOTE | 2021-10-23 13:06 | PHA.MEDREC ---
Pharmacy Consult ? Medication Reconciliation Pharmacy has completed the medication reconciliation. No remarkable issues. Sabrina Akbar, LyubovD
--- NOTE | 2021-10-23 13:59 | PM.IMHP ---
History of Present Illness Date of Service: 10/23/21 Attending physician on admission: Nirmal Poon Chief Complaint: shortness of breath This is a 71-year-old male with history of atrial fibrillation, heart failure who presents emergency department with shortness of breath. History was obtained through the use of a county assessor. Despite using county assessor the patient is somewhat of a vague historian. He states he began feeling short of breath last evening. He ?sometimes? coughs but not persistently. He denies any associated fever chills. He denies any associated chest pain or palpitations. In the emergency department Chest x-ray showed mild prominence of pulmonary vasculature most consistent with mild CHF. BNP was 605. Patient received a breathing treatment as well as a dose of IV Lasix and his breathing improved a little. He states that he has been taking his medication as prescribed. He had not been drinking alcohol but last night he did have 4 or 5 shots of hard alcohol. Alcohol level in the emergency department was less than 10. His Heart rate was noted to be somewhat elevated, patient states that he did not take his morning medication because he came directly to the emergency department. Review of Systems Review of Systems: Yes all other systems are reviewed and are negative Constitutional: Constitutional: Denies chills and Denies fever(s) Cardiovascular: Cardiovascular: Denies chest pain, Denies palpitations and Reports dyspnea Respiratory: Respiratory: Reports dyspnea Gastrointestinal: Gastrointestinal: Denies abdominal pain, Denies nausea and Denies vomiting Endocrine: Endocrine: Denies palpitations [facility] Medical History Atrial fibrillation with rapid ventricular response Atrial fibrillation with slow ventricular response Cardiomyopathy Chronic systolic CHF (congestive heart failure) Diabetes LBBB (left bundle branch block) Family History Mother HTN (hypertension) Father CAD (coronary artery disease) HTN (hypertension) Social History Household Members: None Housing: Apartment Do you presently have visiting nurse or other home services: No Alcohol intake: current Alcohol intake frequency: 3 or more drinks per day Alcohol type: hard liquor Patient Tobacco Use Status: Former Tobacco user Advance Directives: Yes Advance Directives on File: Yes Advance Directives Date on File: 06/27/21 service: No Current occupational status: retired [employer] Allergies Allergy/AdvReac Type Severity Reaction Status Date / Time No Known Allergies Allergy Verified 09/22/21 12:18 Active Medications: Current Medications Apixaban (Apixaban 5 Mg Tablet) 5 mg PO BID [facility] Carvedilol (Carvedilol 25 Mg Tablet) 25 mg PO BID JESUS; Protocol Cyanocobalamin (Cyanocobalamin (Vitamin B-12) 1,000 Mcg Tablet) mcg PO DAILY [facility] Furosemide (Furosemide 40 Mg/4 Ml Vial) 40 mg IVPUSH BID@0900,1800 JESUS; Protocol Hydralazine HCl (Hydralazine Hcl 10 Mg Tablet) 10 mg PO BID JESUS; Protocol Lisinopril (Lisinopril 40 Mg Tablet) 40 mg PO DAILY [facility]; Protocol Non-Formulary Medication (Betamethasone Dipropionate) 1 appl TOPICAL BID [facility] Pharmacy Consult (Consult Rx Perform Med Rec) 1 each MISCELLANE ONCE PRN PRN Reason: Consult order Pravastatin Sodium (Pravastatin Sodium 40 Mg Tablet) 40 mg PO BEDTIME [facility] Home Medications Medication Instructions Recorded Confirmed Last Taken Type betamethasone dipropionate 0.05 % 1 appl TOPICAL BID 06/27/21 10/23/21 10/22/21 History topical ointment carvedilol 25 mg tablet 1 tab PO BID 06/27/21 10/23/21 10/22/21 History cyanocobalamin (vitamin B-12) 1 tab PO DAILY 06/27/21 10/23/21 10/22/21 History 1,000 mcg tablet glipizide 10 mg tablet 1 tab PO BID 06/27/21 10/23/21 10/22/21 History hydralazine 10 mg tablet 1 tab PO BID 06/27/21 10/23/21 10/22/21 History lisinopril 40 mg tablet 1 tab PO DAILY 06/27/21 10/23/21 10/22/21 History metformin 1,000 mg tablet 1 tab PO BID 06/27/21 10/23/21 10/22/21 History pravastatin 40 mg tablet 1 tab PO BEDTIME 06/27/21 10/23/21 10/22/21 History Physical Exam Vital Signs and Narrative: Vital Signs: Last Vital Signs Temp 98.4 F 10/23/21 08:00 Pulse 106 H 10/23/21 12:11 Resp 16 10/23/21 12:11 BP 179/104 H 10/23/21 12:11 Pulse Ox 97 10/23/21 12:11 BMI result Body Mass Index 30.8 Const: General: comfortable, alert and awake Nutritional Appearance: overweight Resp: Effort & Inspection: normal respiratory effort and able to speak in complete sentences Auscultation: clear to auscultation bilaterally Cardio: Rate: tachycardic Heart sounds: S1 normal heart sound present and S2 normal heart sound present GI: Inspection: No distended Palpation (GI): Soft to palpation and nontender Extrem: Other: b/l leg edema Results Labs CBC and Chem 7: 10/23/21 08:17 10/23/21 08:50 Labs: Laboratory Results - last 24 hr 10/23/21 10/23/21 10/23/21 08:17 08:17 08:50 MCV 86.4 MCH 28.5 MCHC 32.9 RDW 14.0 Plt Count 301 D MPV 10.8 Immature Gran % (Auto) 0.4 Neut % (Auto) 75.7 H Lymph % (Auto) 14.4 L [place] % (Auto) 7.1 Eos % (Auto) 1.9 Baso % (Auto) 0.5 Lymph # (Auto) 1.8 [place] # (Auto) 0.9 Eos # (Auto) 0.2 Baso # (Auto) 0.1 Abs Immat Gran (auto) 0.05 H Absolute Neuts (auto) 9.2 H Absolute Nucleated RBC 0.000 Nucleated RBC % (auto) 0.0 PT INR APTT VBG pH VBG pCO2 VBG pO2 VBG HCO3 VBG O2 Saturation VBG Base Excess Anion Gap 16 Estim Creat Clear Calc 104.1 Estimated GFR > 60 Random Glucose 272 H D Lactic Acid Calcium 9.1 Total Bilirubin 0.8 AST 22 ALT 19 Alkaline Phosphatase 84 D Troponin I High Sens 15.5 B-Natriuretic Peptide 605 H Total Protein 6.5 Albumin 3.7 Lipase 10 Ethyl Alcohol COVID-19 (BRAVO) COVID-19 Clin Com Influenza Type A (KIM) Influenza Type B (KIM) Influenza A & B Note 10/23/21 10/23/21 10/23/21 08:50 08:54 09:25 MCV MCH MCHC RDW Plt Count MPV Immature Gran % (Auto) Neut % (Auto) Lymph % (Auto) [place] % (Auto) Eos % (Auto) Baso % (Auto) Lymph # (Auto) [place] # (Auto) Eos # (Auto) Baso # (Auto) Abs Immat Gran (auto) Absolute Neuts (auto) Absolute Nucleated RBC Nucleated RBC % (auto) PT INR APTT VBG pH 7.42 VBG pCO2 48 VBG pO2 47 VBG HCO3 31 H VBG O2 Saturation 68.0 VBG Base Excess 6.2 Anion Gap Estim Creat Clear Calc Estimated GFR Random Glucose Lactic Acid 1.7 Calcium Total Bilirubin AST ALT Alkaline Phosphatase Troponin I High Sens B-Natriuretic Peptide Total Protein Albumin Lipase Ethyl Alcohol < 10 COVID-19 (BRAVO) COVID-19 Clin Com Influenza Type A (KIM) Influenza Type B (KIM) Influenza A & B Note 10/23/21 10/23/21 10/23/21 09:46 09:46 11:19 MCV MCH MCHC RDW Plt Count MPV Immature Gran % (Auto) Neut % (Auto) Lymph % (Auto) [place] % (Auto) Eos % (Auto) Baso % (Auto) Lymph # (Auto) [place] # (Auto) Eos # (Auto) Baso # (Auto) Abs Immat Gran (auto) Absolute Neuts (auto) Absolute Nucleated RBC Nucleated RBC % (auto) PT INR APTT VBG pH VBG pCO2 VBG pO2 VBG HCO3 VBG O2 Saturation VBG Base Excess Anion Gap Estim Creat Clear Calc Estimated GFR Random Glucose Lactic Acid Calcium Total Bilirubin AST ALT Alkaline Phosphatase Troponin I High Sens 23.3 D B-Natriuretic Peptide Total Protein Albumin Lipase Ethyl Alcohol COVID-19 (BRAVO) Negative COVID-19 Clin Com See Note Influenza Type A (KIM) Negative Influenza Type B (KIM) Negative Influenza A & B Note See Note 10/23/21 11:19 MCV MCH MCHC RDW Plt Count MPV Immature Gran % (Auto) Neut % (Auto) Lymph % (Auto) [place] % (Auto) Eos % (Auto) Baso % (Auto) Lymph # (Auto) [place] # (Auto) Eos # (Auto) Baso # (Auto) Abs Immat Gran (auto) Absolute Neuts (auto) Absolute Nucleated RBC Nucleated RBC % (auto) PT 12.9 INR 1.1 APTT 37.0 VBG pH VBG pCO2 VBG pO2 VBG HCO3 VBG O2 Saturation VBG Base Excess Anion Gap Estim Creat Clear Calc Estimated GFR Random Glucose Lactic Acid Calcium Total Bilirubin AST ALT Alkaline Phosphatase Troponin I High Sens B-Natriuretic Peptide Total Protein Albumin Lipase Ethyl Alcohol COVID-19 (BRAVO) COVID-19 Clin Com Influenza Type A (KIM) Influenza Type B (KIM) Influenza A & B Note Imaging Radiologist's Impressions: Impressions Chest X-Ray 10/23/21 08:46 IMPRESSION: Mild prominence of the pulmonary vasculature most consistent with mild CHF, increased from the previous study. Assessment and Plan (1) CHF (congestive heart failure): Status: Acute Plan This is a 70 year old male with history of CHF, afib on eliquis and h/o alcohol dependence, recent admission for CHF who presents with shortness of breath Acute on chronic HFrEF Likely secondary to dietary indiscretion, uncontrolled blood pressure trops flat, BNP 605 ECHO from 06/2001 with EF 20-25% -Diuresis with IV Lasix -Monitor I/O -Monitor weight, and salt intake -pt was planned to follow up with cardiology outpatient to plan biventricular ICD placement Uncontrolled HTN- continue coreg, lisinopril, hydralazine monitor BP, may need medication adjustment AFIB with RVR HR elevated Continue Coreg, will give dose now as patient states he did not take his morning meds continue Eliquis for anticoagulation Diltiazem and clonidine discontinued on last admission Hypo magnesemia Magnesium 1.5 Replace and follow Tele monitoring Chronic alcohol use/ risk for alcohol withdrawal pt states he stopped drinking after his admission in June but did have 4-5 shots last night History of alcohol withdrawal will start phenobarbital protocol to prevent alcohol withdrawal Diabetes Hold Metformin and glipize SSI and diabetic diet HLD formulary equivalent for pravastatin DVP ppx--Eliquis HCP - cj Varghese Attending: dr. poon Given patient's uncontrolled heart rate, elevated blood pressure, risk for alcohol withdrawal, hypomagnesemia putting him at risk for arrhythmia patient will likely need 2 midnight stay in the hospital Quality Stroke Does the patient have a stroke diagnosis?: No VTE Prior VTE?: No VTE Risk Level:: Medical - moderate - high VTE Device Contraindication: Treatment Not Indicated VTE Drug Contraindication: N/A - Med Ordered
[2021-10-23 14:00] LABS: Magnesium 1.5 mg/dL (1.6-2.6)
[2021-10-23] MEDS: carvediloL 25 MG TABLET PO ×2 (14:50→20:43)
[2021-10-23] MEDS: PHENobarbitaL 200 MG, PHENobarbitaL 60 MG 260 MG PO (14:50)
[2021-10-23] MEDS: Magnesium Sulfate/H2O 2 GM/50 ML PIGGYBACK IV (14:51)
[2021-10-23 20:31] LABS: Amphetamine Screen Urine Not Detected (Not Detect); Barbiturates, Urine POSITIVE (Not Detect); Benzodiazepines Screen Urine Not Detected (Not Detect); Cannabinoid Screen Urine Not Detected (Not Detect); Cocaine Screen Urine Not Detected (Not Detect); Fentanyl, urine Not Detected (Not Detect); Opiate Screen Urine Not Detected (Not Detect); Phencyclidine Screen Urine Not Detected (Not Detect)
[2021-10-23] MEDS: hydrALAZINE HCl 10 MG TABLET PO (20:42)
[2021-10-23] MEDS: 0.9 % Sodium Chloride Flush 3 ML SYRINGE IVFLUSH (20:43)
[2021-10-23] MEDS: Apixaban 5 MG TABLET PO (20:43)
[2021-10-23] MEDS: Pravastatin Sodium 40 MG TABLET PO (20:43)
[2021-10-23] MEDS: Triamcinolone Acet 0.5 % Oint 15 GM TUBE 1 APPL TOPICAL (21:27)
[2021-10-24] VITALS (7 sets, daily range): BP systolic 152–177; BP diastolic 69–100; PULSE 70–109; RESP 18–22; TEMP 36.3–37.1; O2SAT 93–97
[2021-10-24] MEDS: Cyanocobalamin (Vitamin B-12) 1,000 MCG TABLET 1000 MCG PO (07:59)
[2021-10-24] MEDS: lisinopriL 40 MG TABLET PO (07:59)
[2021-10-24] MEDS: Apixaban 5 MG TABLET PO (07:59)
[2021-10-24] MEDS: carvediloL 25 MG TABLET PO (07:59)
[2021-10-24] MEDS: hydrALAZINE HCl 10 MG TABLET PO (08:00)
[2021-10-24] MEDS: PHENobarbitaL 30 MG TABLET 60 MG PO (08:00)
[2021-10-24] MEDS: 0.9 % Sodium Chloride Flush 3 ML SYRINGE IVFLUSH ×3 (08:00→23:11)
[2021-10-24] MEDS: Furosemide 40 MG/4 ML VIAL IVPUSH ×2 (08:00→18:44)
--- NOTE | 2021-10-24 10:22 | P.CONCA_ITS ---
History of Present Illness History of Present Illness Date of Service: 10/24/21 Requesting physician: Rakel Odonnell Consult reason: congestive heart failure Chief complaint: Decompensated CHF Narrative: I was requested to see Abimael in cardiology consultation today for symptoms of worsening shortness of breath and leg edema. History was obtained with help of rouge sifter and miller. Despite the rouge sifter and miller patient is not a very good historian. He said he came to the hospital because of increasing shortness of breath over the last 4-5 days which got suddenly worse tonight prior to his presentation to the ED. He also has bilateral leg swelling. Onset of leg swelling is unclear. He said he has been very compliant with his medications. He has prior history of severe cardiomyopathy, chronic atrial fibrillation, left bundle-branch block. He says he sees a oil well directional surveyor on [facility], however there is no cardiology office there. Not sure if he seen a oil well directional surveyor recently. He said he is very compliant with medication there is no clear indiscretion with salt intake. He denies any palpitations, lightheadedness, syncope. Does have symptoms of orthopnea. However since being here he has been diuresed and he says he feels better. Still using oxygen. Review of Systems Constitutional: Constitutional: Reports no additional constitutional complaints Eyes: Eyes: Reports no additional eye complaints Cardiovascular: Cardiovascular: Denies chest pain, Reports leg edema, Denies lightheadedness, Denies Loss of Consciousness, Denies palpitations, Reports dyspnea, Reports dyspnea on exertion and Reports orthopnea Respiratory: Respiratory: Reports no additional respiratory complaints, Reports dyspnea and Reports dyspnea on exertion Gastrointestinal: Gastrointestinal: Reports no additional gastrointestinal complaints Genitourinary: Genitourinary: Reports no additional male genitourinary complaints Musculoskeletal: Musculoskeletal: Reports no additional musculoskeletal complaints Integumentary/Breasts: Skin/Breast: Reports system reviewed and no additional complaints, except as docu Neurologic: Reports system reviewed and no additional complaints, except as documented Psychiatric: Psychiatric: Reports no additional psychiatric complaints Endocrine: Endocrine: Reports no additional endocrine complaints and Denies palpitations Allergic/Immunologic: Allergic/Immunologic: Reports no additional allergic/immunologic complaints PMFSH Past Medical History Medical History Atrial fibrillation with rapid ventricular response Atrial fibrillation with slow ventricular response Cardiomyopathy Chronic systolic CHF (congestive heart failure) Diabetes LBBB (left bundle branch block) Family History Family History Mother HTN (hypertension) Father CAD (coronary artery disease) HTN (hypertension) Social History Social History Household Members: None Housing: Apartment Do you presently have visiting nurse or other home services: Yes Alcohol intake: current Alcohol intake frequency: 3 or more drinks per day Alcohol type: hard liquor Patient Tobacco Use Status: Former Tobacco user Advance Directives Date on File: 06/27/21 service: No Current occupational status: retired [employer] Allergies Allergy/AdvReac Type Severity Reaction Status Date / Time No Known Allergies Allergy Verified 09/22/21 12:18 Active Medications: Current Medications Acetaminophen (Acetaminophen 325 Mg Tablet) 650 mg PO Q6H PRN PRN Reason: Pain, Mild (Pain Scale 1-3) Albuterol/Ipratropium (Albuterol/Iprat 2.5/0.5mg 3 Ml Ampul.Neb) 3 ml INHALE RQ4H PRN PRN Reason: Shortness of Breath/Wheezing Last Admin: 10/23/21 22:21 Dose: 3 ml Documented by: Apixaban (Apixaban 5 Mg Tablet) 5 mg PO BID [facility] Last Admin: 10/24/21 07:59 Dose: 5 mg Documented by: Carvedilol (Carvedilol 25 Mg Tablet) 25 mg PO BID [facility]; Protocol Last Admin: 10/24/21 07:59 Dose: 25 mg Documented by: Cyanocobalamin (Cyanocobalamin (Vitamin B-12) 1,000 Mcg Tablet) 1,000 mcg PO DAILY [facility] Last Admin: 10/24/21 07:59 Dose: 1,000 mcg Documented by: Docusate Sodium (Docusate Sodium 100 Mg Capsule) 100 mg PO DAILY PRN PRN Reason: Constipation Furosemide (Furosemide 40 Mg/4 Ml Vial) 40 mg IVPUSH BID@0900,1800 [facility]; Protocol Last Admin: 10/24/21 08:00 Dose: 40 mg Documented by: Hydralazine HCl (Hydralazine Hcl 10 Mg Tablet) 10 mg PO BID [facility]; Protocol Last Admin: 10/24/21 08:00 Dose: 10 mg Documented by: Lisinopril (Lisinopril 40 Mg Tablet) 40 mg PO DAILY [facility]; Protocol Last Admin: 10/24/21 07:59 Dose: 40 mg Documented by: Pharmacy Consult (Consult Rx Perform Med Rec) 1 each MISCELLANE ONCE PRN PRN Reason: Consult order Pharmacy Consult (Consult Rx Etoh Phenob Po Dose) 1 each MISCELLANE ONCE PRN; Protocol PRN Reason: Consult order Phenobarbital (Phenobarbital 30 Mg Tablet) 60 mg PO BID [facility]; Protocol Stop: 10/25/21 21:01 Last Admin: 10/24/21 08:00 Dose: 60 mg Documented by: Phenobarbital (Phenobarbital 30 Mg Tablet) 30 mg PO BID [facility]; Protocol Stop: 10/27/21 21:01 Phenobarbital (Phenobarbital 15 Mg Tablet) 15 mg PO DAILY [facility]; Protocol Stop: 10/29/21 09:01 Pravastatin Sodium (Pravastatin Sodium 40 Mg Tablet) 40 mg PO BEDTIME [facility] Last Admin: 10/23/21 20:43 Dose: 40 mg Documented by: Sodium Chloride (0.9 % Sodium Chloride Flush 3 Ml Syringe) 3 ml IVFLUSH QSHIFT [facility] Last Admin: 10/24/21 08:00 Dose: 3 ml Documented by: Triamcinolone Acetonide (Triamcinolone Acet 0.5 % Oint 15 Gm Tube) 1 appl TOPICAL BID [facility] Last Admin: 10/23/21 21:27 Dose: 1 appl Documented by: Home Medications Medication Instructions Recorded Confirmed Last Taken Type betamethasone dipropionate 0.05 % 1 appl TOPICAL BID 06/27/21 10/23/21 10/22/21 History topical ointment carvedilol 25 mg tablet 1 tab PO BID 06/27/21 10/23/21 10/22/21 History cyanocobalamin (vitamin B-12) 1 tab PO DAILY 06/27/21 10/23/21 10/22/21 History 1,000 mcg tablet glipizide 10 mg tablet 1 tab PO BID 06/27/21 10/23/21 10/22/21 History hydralazine 10 mg tablet 1 tab PO BID 06/27/21 10/23/21 10/22/21 History lisinopril 40 mg tablet 1 tab PO DAILY 06/27/21 10/23/21 10/22/21 History metformin 1,000 mg tablet 1 tab PO BID 06/27/21 10/23/21 10/22/21 History pravastatin 40 mg tablet 1 tab PO BEDTIME 06/27/21 10/23/21 10/22/21 History Physical Exam Vital Signs: Vital Signs: Last Vital Signs Temp 97.3 F 10/24/21 07:41 Pulse 109 H 10/24/21 07:41 Resp 18 10/24/21 07:41 BP 160/100 H 10/24/21 07:41 Pulse Ox 93 10/24/21 07:41 BMI result Body Mass Index 30.8 Const: General: cooperative, alert, awake and in distress mild and respiratory Nutritional Appearance: obese Orientation/consciousness: patient oriented x3 HEENT: Head: Yes normocephalic and Yes atraumatic Neck: Neck: Yes trachea midline, Yes supple and Yes JVD Chest: Chest palpation & inspection: normal inspection of the chest Cardio: Jugular venous distension: JVD Rate: tachycardic Rhythm: abnormal rhythm irregularly irregular Heart sounds: S1 normal heart sound present, S2 normal heart sound present, no click, no gallops, no murmurs and no rubs GI: Inspection: Yes obesity Auscultation: normal bowel sounds Skin: General skin exam: no rashes or lesions noted Neuro: General: patient oriented x3 and no focal motor deficits Extrem: General: No clubbing, No cyanosis and Yes edema Objective Labs and Meds Result diagrams: 10/23/21 08:17 10/23/21 08:50 Lab results: Laboratory Results - last 24 hr 10/23/21 10/23/21 10/23/21 08:50 08:54 11:19 PT INR APTT VBG pH 7.42 VBG pCO2 48 VBG pO2 47 VBG HCO3 31 H VBG O2 Saturation 68.0 VBG Base Excess 6.2 Magnesium 1.5 L Troponin I High Sens 23.3 D Lipase 10 Urine Opiates Screen Urine Fentanyl Screen Ur Barbiturates Screen Ur Phencyclidine Scrn Ur Amphetamines Screen U Benzodiazepines Scrn Urine Cocaine Screen U Marijuana (THC) Screen 10/23/21 10/23/21 11:19 20:08 PT 12.9 INR 1.1 APTT 37.0 VBG pH VBG pCO2 VBG pO2 VBG HCO3 VBG O2 Saturation VBG Base Excess Magnesium Troponin I High Sens Lipase Urine Opiates Screen Not Detected Urine Fentanyl Screen Not Detected Ur Barbiturates Screen POSITIVE H Ur Phencyclidine Scrn Not Detected Ur Amphetamines Screen Not Detected U Benzodiazepines Scrn Not Detected Urine Cocaine Screen Not Detected U Marijuana (THC) Screen Not Detected Assessment and Plan (1) Acute systolic heart failure: Status: Acute Acute systolic heart failure in this elderly gentleman with severely reduced LVEF by last echocardiogram in June with LVEF of 20-25%, poor historian and unclear about his follow-ups and social background. This leads to high risk of rehospitalization as well as poor outcomes. This was discussed with him with help of rouge sifter and miller although was not sure if he completely understood the gr avity of the situation. For now continue with IV diuresis. Strict intake and output chart needs to be pursued. Continue to monitor renal function and electrolytes and replace potassium as needed. Continue carvedilol therapy. Add digoxin loading 0.25 mg IV push q.6 hours x3 doses for better rate control as well as possibly as I inotropic agent. Also switch his lisinopril from 40 mg daily to Diovan 160 mg b.i.d. for better blood pressure control and eventual plan to switch him to Entresto therapy. Add Aldactone 12.5 mg to his regimen. Monitor renal function. Aggressive control blood pressure is required. Eventually the should be discussion about ICD placement for primary prevention a lso for resynchronization therapy given his chronic left bundle-branch block, he will benefit with both. Not sure about his alcohol abuse he said he drank 3-4 drinks of rum about a month ago. Usually does not drink on every day basis. This needs to be clarified. CHF education needs to be provided in his seminole language (2) Chronic atrial fibrillation: Status: Acute Atrial fibrillation appears to be chronic. Not able to get further history in regards to whether there is ever been attempt to maintain rhythm. However given that he has been atrial fibrillation on multiple EKGs over the last few months unlikely that rhythm control can be achieved on him. For now continue carvedilol therapy. Add digoxin for rate control. Continue full oral anticoagulation, currently on Eliquis. Will follow up with you. Procedures Date of Service Date of Service: 10/24/21
[2021-10-24] MEDS: Triamcinolone Acet 0.5 % Oint 15 GM TUBE 1 APPL TOPICAL ×2 (10:30→23:22)
--- NOTE | 2021-10-24 10:37 | HO.PM.IMPN ---
Subjective Subjective Date of Service: 10/24/21 Interval History: Seen and examined this morning Reports improvement in breathing Still reporting lower extremity edema Denies chest pain, palpitations Review of Systems Review of Systems: Yes all other systems are reviewed and are negative Constitutional Constitutional: Denies chills and Denies fever(s) Cardiovascular Cardiovascular: Denies palpitations and Denies dyspnea Respiratory Respiratory: Denies cough and Denies dyspnea Gastrointestinal Gastrointestinal: Denies abdominal pain Endocrine Endocrine: Denies palpitations Physical Exam Vital Signs: Vital Signs: Last Vital Signs Temp 97.3 F 10/24/21 07:41 Pulse 109 H 10/24/21 07:41 Resp 18 10/24/21 07:41 BP 160/100 H 10/24/21 07:41 Pulse Ox 93 10/24/21 07:41 BMI result Body Mass Index 30.8 Const: General: comfortable, alert and awake Nutritional Appearance: overweight Resp: Effort & Inspection: normal respiratory effort and able to speak in complete sentences Auscultation: clear to auscultation bilaterally Cardio: Jugular venous distension: JVD Rate: tachycardic Rhythm: abnormal rhythm irregularly irregular Heart sounds: S1 normal heart sound present and S2 normal heart sound present GI: Inspection: No distended Palpation (GI): Soft to palpation and nontender Extrem: Other: b/l leg edema Objective Data Active Medications Acetaminophen (Acetaminophen 325 Mg Tablet) 650 mg PO Q6H PRN PRN Reason: Pain, Mild (Pain Scale 1-3) Albuterol/Ipratropium (Albuterol/Iprat 2.5/0.5mg 3 Ml Ampul.Neb) 3 ml INHALE RQ4H PRN PRN Reason: Shortness of Breath/Wheezing Last Admin: 10/23/21 22:21 Dose: 3 ml Documented by: YVETTE Apixaban (Apixaban 5 Mg Tablet) 5 mg PO BID [facility] Last Admin: 10/24/21 07:59 Dose: 5 mg Documented by: LARON Carvedilol (Carvedilol 25 Mg Tablet) 25 mg PO BID [facility]; Protocol Last Admin: 10/24/21 07:59 Dose: 25 mg Documented by: LARON Cyanocobalamin (Cyanocobalamin (Vitamin B-12) 1,000 Mcg Tablet) 1,000 mcg PO DAILY [facility] Last Admin: 10/24/21 07:59 Dose: 1,000 mcg Documented by: LARON Digoxin (Digoxin 0.5 Mg/2 Ml Ampul) 0.25 mg IVPUSH Q6H [facility] Stop: 10/24/21 22:46 Docusate Sodium (Docusate Sodium 100 Mg Capsule) 100 mg PO DAILY PRN PRN Reason: Constipation Furosemide (Furosemide 40 Mg/4 Ml Vial) 40 mg IVPUSH BID@0900,1800 [facility]; Protocol Last Admin: 10/24/21 08:00 Dose: 40 mg Documented by: LARON Hydralazine HCl (Hydralazine Hcl 10 Mg Tablet) 10 mg PO BID [facility]; Protocol Last Admin: 10/24/21 08:00 Dose: 10 mg Documented by: LARON Pharmacy Consult (Consult Rx Perform Med Rec) 1 each MISCELLANE ONCE PRN PRN Reason: Consult order Pharmacy Consult (Consult Rx Etoh Phenob Po Dose) 1 each MISCELLANE ONCE PRN; Protocol PRN Reason: Consult order Phenobarbital (Phenobarbital 30 Mg Tablet) 60 mg PO BID [facility]; Protocol Stop: 10/25/21 21:01 Last Admin: 10/24/21 08:00 Dose: 60 mg Documented by: LARON Phenobarbital (Phenobarbital 30 Mg Tablet) 30 mg PO BID [facility]; Protocol Stop: 10/27/21 21:01 Phenobarbital (Phenobarbital 15 Mg Tablet) 15 mg PO DAILY [facility]; Protocol Stop: 10/29/21 09:01 Pravastatin Sodium (Pravastatin Sodium 40 Mg Tablet) 40 mg PO BEDTIME [facility] Last Admin: 10/23/21 20:43 Dose: 40 mg Documented by: GAMAL Sodium Chloride (0.9 % Sodium Chloride Flush 3 Ml Syringe) 3 ml IVFLUSH QSHIFT [facility] Last Admin: 10/24/21 08:00 Dose: 3 ml Documented by: LARON Spironolactone (Spironolactone 25 Mg Tablet) 12.5 mg PO DAILY [facility]; Protocol Triamcinolone Acetonide (Triamcinolone Acet 0.5 % Oint 15 Gm Tube) 1 appl TOPICAL BID [facility] Last Admin: 10/24/21 10:30 Dose: 1 appl Documented by: LARON Valsartan (Valsartan 160 Mg Tablet) 160 mg PO BID [facility]; Protocol Labs CBC & Chem 7: 10/23/21 08:17 10/23/21 08:50 Labs: Laboratory Results - last 24 hr 10/23/21 10/23/21 10/23/21 08:50 08:54 11:19 PT INR APTT VBG pH 7.42 VBG pCO2 48 VBG pO2 47 VBG HCO3 31 H VBG O2 Saturation 68.0 VBG Base Excess 6.2 Magnesium 1.5 L Troponin I High Sens 23.3 D Lipase 10 Urine Opiates Screen Urine Fentanyl Screen Ur Barbiturates Screen Ur Phencyclidine Scrn Ur Amphetamines Screen U Benzodiazepines Scrn Urine Cocaine Screen U Marijuana (THC) Screen 10/23/21 10/23/21 11:19 20:08 PT 12.9 INR 1.1 APTT 37.0 VBG pH VBG pCO2 VBG pO2 VBG HCO3 VBG O2 Saturation VBG Base Excess Magnesium Troponin I High Sens Lipase Urine Opiates Screen Not Detected Urine Fentanyl Screen Not Detected Ur Barbiturates Screen POSITIVE H Ur Phencyclidine Scrn Not Detected Ur Amphetamines Screen Not Detected U Benzodiazepines Scrn Not Detected Urine Cocaine Screen Not Detected U Marijuana (THC) Screen Not Detected Assessment and Plan (1) Chronic atrial fibrillation: Status: Acute (2) Acute systolic heart failure: Status: Acute Plan This is a 70 year old male with history of CHF, afib on eliquis and h/o alcohol dependence, recent admission for CHF who presents with shortness of breath Acute on chronic HFrEF Likely secondary to dietary indiscretion, uncontrolled blood pressure trops flat, BNP 605 ECHO from 06/2001 with EF 20-25% -continue Diuresis with IV Lasix -Monitor I/O -Monitor weight -pt was planned to follow up with cardiology outpatient to plan biventricular ICD placement -seen by Cardiology, agree with ongoing diuresis, recommend to start Aldactone Uncontrolled HTN- seen by cardiology - change lisinopril to Diovan, add Aldactone Continue hydralazine, Coreg Monitor blood pressure closely AFIB with RVR HR still uncontrolled Continue Coreg continue Eliquis for anticoagulation seen by cardiology rec to start digoxin load (Diltiazem and clonidine discontinued on last admission) Hypomagnesemia Magnesium 1.5, repeat pending Replace and follow Tele monitoring Chronic alcohol use/ risk for alcohol withdrawal pt states he stopped drinking after his admission in June but did have 4-5 shots last night History of alcohol withdrawal will start phenobarbital protocol to prevent alcohol withdrawal Diabetes Hold Metformin and glipizide SSI and diabetic diet [facility] formulary equivalent for pravastatin DVP ppx--Tavo HCP - cj Varghese Attending: dr. poon Patient requires ongoing inpatient hospitalization due to uncontrolled heart rate, elevated blood pressure, risk for alcohol withdrawal, hypomagnesemia and need for medication adjustment for the same Quality Stroke Does the patient have a stroke diagnosis?: No VTE Prior VTE?: No VTE Risk Level:: Medical - moderate - high VTE Device Contraindication: Treatment Not Indicated VTE Drug Contraindication: N/A - Med Ordered
[2021-10-24 11:13] LABS: Hemoglobin 13.6 g/dl (14.0-18.0); Mean Corpuscular HGB Conc 32.4 g/dl (31.0-36.0); Mean Corpuscular Hemoglobin 28.3 pg (27.0-33.0); Mean Corpuscular Volume 87.3 fL (80.0-98.0); Mean Platelet Volume 10.4 fL (9.4-12.4); Platelet Count 277 X10*3/uL (160-400); Red Blood Count 4.81 X10*6/uL (4.60-5.80); Red Cell Distribution Width 14.2 % (11.0-16.0)
[2021-10-24 11:30] LABS: Glucose, Whole Blood 436 mg/dL (60-115)
[2021-10-24 11:37] LABS: Anion Gap 14 (12-20); Blood Urea Nitrogen 14 mg/dL (9-16); Calcium 8.6 mg/dL (8.4-10.2); Carbon Dioxide 33 mmol/L (22-29); Chloride 94 mmol/L (96-108); Creatinine Clr Calc Pharmacy 83.8; Estimated Glomerular Filt Rate > 60; Glucose Random 501 mg/dL (60-115); Magnesium 1.9 mg/dL (1.6-2.6); Potassium 4.5 mmol/L (3.3-5.1); Sodium 136 mmol/L (135-145)
--- NOTE | 2021-10-24 11:40 | MHC.CM.PN ---
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
[2021-10-24] MEDS: Insulin Lispro 100 UNIT/ML 3 ML VIAL SUBCUT ×3 (11:49→16:39)
[2021-10-24] MEDS: Spironolactone 25 MG TABLET 12.5 MG PO (11:50)
[2021-10-24] MEDS: Digoxin 0.5 MG/2 ML AMPUL 0.25 MG IVPUSH ×3 (11:52→23:07)
[2021-10-24 12:19] LABS: Estimated Average Glucose 326 mg/dL
--- NOTE | 2021-10-24 15:21 | P.CNPS_ITS ---
History of Present Illness Date of Service: 10/24/2021 Chief Complaint: Decompensated CHF Reason for Consult: Hallucinations, behavioral changes, family worried, competency eval. Requesting physician: Rakel Odonnell Discussed with referring provider: Yes Sources of Information: patient interviewed, chart reviewed and crisis/core team assessment reviewed HPI Past Psychiatric History: -No past psych history Patient has been here 5 times since June 2021, has reported AH the past 4 times. Had been referred to [facility] in September 2021, did not contact them. 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 Son is very involved. Has a friend that checks in on him daily. Independent with showering, toileting, cooking. , has 2 sons and 2 daughters. Longstanding history alcohol daily use since use. Reports stopped in 06/2021, drank 5 shots of hard liquor 10/22/2021. Review of Systems Review of Systems A full review of systems was completed and was negative with the exception of pertinent positives noted in history of the presenting illness (HPI). 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 He is independent with showering, toileting, and cooking. -, has 2 sons and 2 daughters Substance History: Longstanding daily alcohol consumption, 3 or more shots of hard liquor daily, since youth. Reports stopped June 2021 until recently, on 10/22/2021. Diagnostics Vital Signs (24Hr): Vital Signs - 24 hr 10/23/21 16:44 10/23/21 20:37 10/23/21 22:22 Temperature 97.9 F 98.5 F Pulse Rate 86 83 83 Respiratory Rate 13 19 18 Blood Pressure 154/79 H 179/80 H Pulse Oximetry 96 94 10/23/21 23:14 10/24/21 03:54 10/24/21 07:41 Temperature 96.9 F 98.1 F 97.3 F Pulse Rate 97 96 109 H Respiratory Rate 21 H 19 18 Blood Pressure 149/87 H 177/69 H 160/100 H Pulse Oximetry 95 93 93 10/24/21 11:28 10/24/21 13:12 Temperature 98.1 F Pulse Rate 105 H 70 Respiratory Rate 18 Blood Pressure 171/95 H 152/79 H Pulse Oximetry 95 BMI result Body Mass Index 30.8 Labs Results: 10/24/21 10:58 10/24/21 10:58 Labs: Laboratory Results - last 48 hr 10/23/21 10/23/21 10/23/21 08:17 08:17 08:50 WBC 12.2 H RBC 4.78 Hgb 13.6 L Hct 41.3 L MCV 86.4 MCH 28.5 MCHC 32.9 RDW 14.0 Plt Count 301 D MPV 10.8 Immature Gran % (Auto) 0.4 Neut % (Auto) 75.7 H Lymph % (Auto) 14.4 L [place] % (Auto) 7.1 Eos % (Auto) 1.9 Baso % (Auto) 0.5 Lymph # (Auto) 1.8 [place] # (Auto) 0.9 Eos # (Auto) 0.2 Baso # (Auto) 0.1 Abs Immat Gran (auto) 0.05 H Absolute Neuts (auto) 9.2 H Absolute Nucleated RBC 0.000 Nucleated RBC % (auto) 0.0 PT INR APTT VBG pH VBG pCO2 VBG pO2 VBG HCO3 VBG O2 Saturation VBG Base Excess Sodium 138 Potassium 4.1 D Chloride 97 Carbon Dioxide 29 Anion Gap 16 BUN 12 Creatinine 0.83 Estim Creat Clear Calc 104.1 Estimated GFR > 60 POC Glucose Random Glucose 272 H D Estimat Average Glucose Hemoglobin A1c % Lactic Acid Calcium 9.1 Magnesium 1.5 L Total Bilirubin 0.8 AST 22 ALT 19 Alkaline Phosphatase 84 D Troponin I High Sens 15.5 B-Natriuretic Peptide 605 H Total Protein 6.5 Albumin 3.7 Lipase 10 Urine Opiates Screen Urine Fentanyl Screen Ur Barbiturates Screen Ur Phencyclidine Scrn Ur Amphetamines Screen U Benzodiazepines Scrn Urine Cocaine Screen U Marijuana (THC) Screen Ethyl Alcohol COVID-19 (BRAVO) COVID-19 Clin Com Influenza Type A (KIM) Influenza Type B (KIM) Influenza A & B Note 04/07/22 04/07/22 04/07/22 08:50 08:54 09:25 WBC RBC Hgb Hct MCV MCH MCHC RDW Plt Count MPV Immature Gran % (Auto) Neut % (Auto) Lymph % (Auto) [place] % (Auto) Eos % (Auto) Baso % (Auto) Lymph # (Auto) [place] # (Auto) Eos # (Auto) Baso # (Auto) Abs Immat Gran (auto) Absolute Neuts (auto) Absolute Nucleated RBC Nucleated RBC % (auto) PT INR APTT VBG pH 7.42 VBG pCO2 48 VBG pO2 47 VBG HCO3 31 H VBG O2 Saturation 68.0 VBG Base Excess 6.2 Sodium Potassium Chloride Carbon Dioxide Anion Gap BUN Creatinine Estim Creat Clear Calc Estimated GFR POC Glucose Random Glucose Estimat Average Glucose Hemoglobin A1c % Lactic Acid 1.7 Calcium Magnesium Total Bilirubin AST ALT Alkaline Phosphatase Troponin I High Sens B-Natriuretic Peptide Total Protein Albumin Lipase Urine Opiates Screen Urine Fentanyl Screen Ur Barbiturates Screen Ur Phencyclidine Scrn Ur Amphetamines Screen U Benzodiazepines Scrn Urine Cocaine Screen U Marijuana (THC) Screen Ethyl Alcohol < 10 COVID-19 (BRAVO) COVID-19 Clin Com Influenza Type A (KIM) Influenza Type B (KIM) Influenza A & B Note 10/23/21 10/23/21 10/23/21 09:46 09:46 11:19 WBC RBC Hgb Hct MCV MCH MCHC RDW Plt Count MPV Immature Gran % (Auto) Neut % (Auto) Lymph % (Auto) [place] % (Auto) Eos % (Auto) Baso % (Auto) Lymph # (Auto) [place] # (Auto) Eos # (Auto) Baso # (Auto) Abs Immat Gran (auto) Absolute Neuts (auto) Absolute Nucleated RBC Nucleated RBC % (auto) PT INR APTT VBG pH VBG pCO2 VBG pO2 VBG HCO3 VBG O2 Saturation VBG Base Excess Sodium Potassium Chloride Carbon Dioxide Anion Gap BUN Creatinine Estim Creat Clear Calc Estimated GFR POC Glucose Random Glucose Estimat Average Glucose Hemoglobin A1c % Lactic Acid Calcium Magnesium Total Bilirubin AST ALT Alkaline Phosphatase Troponin I High Sens 23.3 D B-Natriuretic Peptide Total Protein Albumin Lipase Urine Opiates Screen Urine Fentanyl Screen Ur Barbiturates Screen Ur Phencyclidine Scrn Ur Amphetamines Screen U Benzodiazepines Scrn Urine Cocaine Screen U Marijuana (THC) Screen Ethyl Alcohol COVID-19 (BRAVO) Negative COVID-19 Clin Com See Note Influenza Type A (KIM) Negative Influenza Type B (KIM) Negative Influenza A & B Note See Note 10/23/21 10/23/21 10/24/21 11:19 20:08 10:58 WBC RBC Hgb Hct MCV MCH MCHC RDW Plt Count MPV Immature Gran % (Auto) Neut % (Auto) Lymph % (Auto) [place] % (Auto) Eos % (Auto) Baso % (Auto) Lymph # (Auto) [place] # (Auto) Eos # (Auto) Baso # (Auto) Abs Immat Gran (auto) Absolute Neuts (auto) Absolute Nucleated RBC Nucleated RBC % (auto) PT 12.9 INR 1.1 APTT 37.0 VBG pH VBG pCO2 VBG pO2 VBG HCO3 VBG O2 Saturation VBG Base Excess Sodium 136 Potassium 4.5 Chloride 94 L Carbon Dioxide 33 H Anion Gap 14 BUN 14 Creatinine 1.03 Estim Creat Clear Calc 83.8 Estimated GFR > 60 POC Glucose Random Glucose 501 H* Estimat Average Glucose Hemoglobin A1c % Lactic Acid Calcium 8.6 Magnesium 1.9 Total Bilirubin AST ALT Alkaline Phosphatase Troponin I High Sens B-Natriuretic Peptide Total Protein Albumin Lipase Urine Opiates Screen Not Detected Urine Fentanyl Screen Not Detected Ur Barbiturates Screen POSITIVE H Ur Phencyclidine Scrn Not Detected Ur Amphetamines Screen Not Detected U Benzodiazepines Scrn Not Detected Urine Cocaine Screen Not Detected U Marijuana (THC) Screen Not Detected Ethyl Alcohol COVID-19 (BRAVO) COVID-19 Clin Com Influenza Type A (KIM) Influenza Type B (KIM) Influenza A & B Note 10/24/21 10/24/21 10/24/21 10:58 10:58 11:26 WBC 11.0 H RBC 4.81 Hgb 13.6 L Hct 42.0 MCV 87.3 MCH 28.3 MCHC 32.4 RDW 14.2 Plt Count 277 MPV 10.4 Immature Gran % (Auto) Neut % (Auto) Lymph % (Auto) [place] % (Auto) Eos % (Auto) Baso % (Auto) Lymph # (Auto) [place] # (Auto) Eos # (Auto) Baso # (Auto) Abs Immat Gran (auto) Absolute Neuts (auto) Absolute Nucleated RBC 0.000 Nucleated RBC % (auto) 0.0 PT INR APTT VBG pH VBG pCO2 VBG pO2 VBG HCO3 VBG O2 Saturation VBG Base Excess Sodium Potassium Chloride Carbon Dioxide Anion Gap BUN Creatinine Estim Creat Clear Calc Estimated GFR POC Glucose 436 H* Random Glucose Estimat Average Glucose 326 Hemoglobin A1c % 13.0 Lactic Acid Calcium Magnesium Total Bilirubin AST ALT Alkaline Phosphatase Troponin I High Sens B-Natriuretic Peptide Total Protein Albumin Lipase Urine Opiates Screen Urine Fentanyl Screen Ur Barbiturates Screen Ur Phencyclidine Scrn Ur Amphetamines Screen U Benzodiazepines Scrn Urine Cocaine Screen U Marijuana (THC) Screen Ethyl Alcohol COVID-19 (BRAVO) COVID-19 Clin Com Influenza Type A (KIM) Influenza Type B (KIM) Influenza A & B Note Imaging Radiology Impressions: ITS Impressions Chest X-Ray 10/23/21 08:46 IMPRESSION: Mild prominence of the pulmonary vasculature most consistent with mild CHF, increased from the previous study. Mental Status Exam Mental Status Exam Narrative: A&O. Overweight, in NAD. Appears stated age. Good eye contact, attentive. No Tics or Tremors. No abnormal involuntary movements. Denies SI/SIB/HI upon inquiry. Patient Appearance: Disheveled and Unkempt Patient Orientation: Person, Place, Time and Situation Level of Consciousness: Awake and Appropriate Patient Behavior: Appropriate, Talkative, Cooperative and Good Eye Contact Mood Description: Depressed and Anxious Affect Description: Anxious and Angry (Angry outburst at 1st, stated he believes he is being mistreated while here, as they wanted him to sit up in chair and go back to bed.) Patient Cognition Impaired: Yes Ability to Follow Directions: Good Speech Pattern: Clear, Appropriate, Coherent, Cofabulation (Continuously confabulated throughout conversation.) and Loud Memory Description: Episodic Impaired, Normal for Patient and Recent Impaired Hallucinations: Auditory (Has heard voices, does not hear any currently.) and Visual (Reports daily visual, seeing dogs, a man, and woman. Describes them sitting down near him and watching TV with her arms crossed.) Thought Process: Confusion Thought Content: positive for Circumstantial Depressive Symptoms: Increased Anxiety, Diff. Making Decisions, Increased Irritability, Crying Spells, Loss of Int. in Activity, Isolating-Friends/Family and Unhappiness Judgement: Poor Medications Medications Current Medications Acetaminophen (Acetaminophen 325 Mg Tablet) 650 mg PO Q6H PRN PRN Reason: Pain, Mild (Pain Scale 1-3) Albuterol/Ipratropium (Albuterol/Iprat 2.5/0.5mg 3 Ml Ampul.Neb) 3 ml INHALE RQ4H PRN PRN Reason: Shortness of Breath/Wheezing Last Admin: 10/23/21 22:21 Dose: 3 ml Documented by: Apixaban (Apixaban 5 Mg Tablet) 5 mg PO BID [facility] Last Admin: 10/24/21 07:59 Dose: 5 mg Documented by: Carvedilol (Carvedilol 25 Mg Tablet) 25 mg PO BID [facility]; Protocol Last Admin: 10/24/21 07:59 Dose: 25 mg Documented by: Cyanocobalamin (Cyanocobalamin (Vitamin B-12) 1,000 Mcg Tablet) 1,000 mcg PO DAILY [facility] Last Admin: 10/24/21 07:59 Dose: 1,000 mcg Documented by: Dextrose (Dextrose 50 % 25 Gm/50 Ml Syringe) 25 gm IVPUSH Q15M PRN; Protocol PRN Reason: per Hypoglycemia Standing Ord. Digoxin (Digoxin 0.5 Mg/2 Ml Ampul) 0.25 mg IVPUSH Q6H [facility] Stop: 10/24/21 22:46 Last Admin: 10/24/21 11:52 Dose: 0.25 mg Documented by: Docusate Sodium (Docusate Sodium 100 Mg Capsule) 100 mg PO DAILY PRN PRN Reason: Constipation Folic Acid (Folic Acid 1 Mg Tablet) 1 mg PO DAILY [facility] Furosemide (Furosemide 40 Mg/4 Ml Vial) 40 mg IVPUSH BID@0900,1800 [facility]; Protocol Last Admin: 10/24/21 08:00 Dose: 40 mg Documented by: Glucose (Glucose Gel 15 Gm Gel..Gram.) 15 gm PO Q15M PRN; Protocol PRN Reason: per Hypoglycemia Standing Ord. Hydralazine HCl (Hydralazine Hcl 10 Mg Tablet) 10 mg PO BID [facility]; Protocol Last Admin: 10/24/21 08:00 Dose: 10 mg Documented by: Insulin Human Lispro (Insulin Lispro 100 Unit/Ml 3 Ml Vial) 0 unit SUBCUT QIDACHS [facility]; Protocol Last Admin: 10/24/21 11:49 Dose: 10 unit Documented by: Metformin HCl (Metformin Hcl 1,000 Mg Tablet) 1,000 mg PO BID [facility] Multivitamins/Vitamin C (Multivitamin Tablet) 1 tab PO DAILY [facility] Pharmacy Consult (Consult Rx Perform Med Rec) 1 each MISCELLANE ONCE PRN PRN Reason: Consult order Pharmacy Consult (Consult Rx Etoh Phenob Po Dose) 1 each MISCELLANE ONCE PRN; Protocol PRN Reason: Consult order Phenobarbital (Phenobarbital 30 Mg Tablet) 60 mg PO BID [facility]; Protocol Stop: 10/25/21 21:01 Last Admin: 10/24/21 08:00 Dose: 60 mg Documented by: Phenobarbital (Phenobarbital 30 Mg Tablet) 30 mg PO BID [facility]; Protocol Stop: 10/27/21 21:01 Phenobarbital (Phenobarbital 15 Mg Tablet) 15 mg PO DAILY [facility]; Protocol Stop: 10/29/21 09:01 Pravastatin Sodium (Pravastatin Sodium 40 Mg Tablet) 40 mg PO BEDTIME [facility] Last Admin: 10/23/21 20:43 Dose: 40 mg Documented by: Sodium Chloride (0.9 % Sodium Chloride Flush 3 Ml Syringe) 3 ml IVFLUSH QSHIFT [facility] Last Admin: 10/24/21 08:00 Dose: 3 ml Documented by: Spironolactone (Spironolactone 25 Mg Tablet) 12.5 mg PO DAILY [facility]; Protocol Last Admin: 10/24/21 11:50 Dose: 12.5 mg Documented by: Thiamine HCl (Thiamine Hcl 100 Mg Tablet) 100 mg PO DAILY [facility] Triamcinolone Acetonide (Triamcinolone Acet 0.5 % Oint 15 Gm Tube) 1 appl TOPICAL BID [facility] Last Admin: 10/24/21 10:30 Dose: 1 appl Documented by: Valsartan (Valsartan 160 Mg Tablet) 160 mg PO BID [facility]; Protocol Allergies Allergies Allergy/AdvReac Type Severity Reaction Status Date / Time No Known Allergies Allergy Verified 09/22/21 12:18 Assessment & Plan Assessment & Plan (1) Alcohol use disorder, severe, dependence: Status: Acute Code(s): F10.20 - Alcohol dependence, uncomplicated Assessment and Plan: I met with patient this afternoon, along with [place]-speaking veterans' counselor. Upon entrance to the room and introducing myself, patient angrily shouted ?I know who you are, and I am mad ?. He continued agitated, telling me he was angry that they had him get out of bed to chair, and then back to bed. When I told him I had never met him before, he was able to calm himself, and proceed with interview. He says he has a longstanding history of heavy alcohol use since he was young. Reports daily use of at least 3 or more shots of hard liquor, up until June of 2021, where he reports he went cold turkey . He has presented to this hospital 5 times since 07/07/2021. He has continued to report auditory and visual hallucinations. Although he states he has not had alcohol since June, he did admit to drinking 5 shots of hard liquor on 10/22/2020. Throughout encounter, he confabulated. For example, I asked him what he had for breakfast, and he told me a hamburger with ground beef and an egg, with oatmeal. He actually had pancakes and an egg, according to staff on unit. When asked how often he drinks, he states that he has been able to abstain, ex cept this most recent episode where he drink with a friend. When asked to describe situation, he declined, telling me that it was private . He denies any SI/HI. He reports that he has hallucinations almost daily, and has had them for the past 2 and half months. He denies that the hallucinations are command in nature. He states they are mostly of a man and woman, that sit down and watch TV with him. He states that he also sees dogs. He told me that he took a picture of one, and then the hallucination disappeared. When I asked if I could see it, he stated that it is at home. When asked if he had followed up with referral to [facility] that he received (per CARE team note), during most recent stay, he stated that he never received any information from anyone. 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 He states that he has continued to refuse any type of nursing service, as he does not believe he needs it. He was able to tell me that he is in [employer], that it is October 24, and that he presented himself due to feeling pain. (2) Depressive disorder: Status: Acute Code(s): F32.A - Depression, unspecified Assessment and Plan: Patient reports he has had depression and anxiety for the past 18 years. He denies any treatment. He had been referred to [facility] during the stay here in September 2021. He reports that he does not recall ever receiving that, and that he never called them. Plan Patient possibly could have a depressive episode with psychotic features, or possibly have alcohol related hallucinations. A head CT on 09/29 showed no acute intracranial pathology. There is a possibility that he could have Korsakoff's syndrome. Recommendations: Obtain an MRI. Obtain a TSH, vitamin B12 level, folate level. Start multi vitamin daily, folic acid 1 mg daily, thiamine 100 mg daily. Contact care team once medically cleared, for possible inpatient stay. I have shared these recommendations with provider Rakel Odonnell. Thank you for this consultation. I spent ____40__ minutes with the patient and/or on the patient floor today, greater than?50% of which was spent counseling/coordinating care. Patient educated on: diagnosis, medication risk/benefits, substance abuse and therapeutic strategies Informed Consent: does not understand and further education needed
[2021-10-24] MEDS: Albuterol/Iprat 2.5/0.5MG 3 ML AMPUL.NEB INHALE (15:25)
[2021-10-24 15:53] LABS: Thyroid Stimulating Hormone 2.14 uIU/mL (0.32-4.0)
[2021-10-24] MEDS: Folic Acid 1 MG TABLET PO (16:32)
[2021-10-24] MEDS: Multivitamin TABLET 1 TAB PO (16:32)
[2021-10-24] MEDS: Acetaminophen 325 MG TABLET 650 MG PO (16:32)
[2021-10-24] MEDS: metFORMIN HCl 1,000 MG TABLET 1000 MG PO (16:32)
[2021-10-24] MEDS: Thiamine HCL 100 MG TABLET PO (16:33)
[2021-10-24 16:34] LABS: Glucose, Whole Blood 268 mg/dL (60-115)
[2021-10-24 19:59] LABS: Glucose, Whole Blood 129 mg/dL (60-115)
[2021-10-25] VITALS (7 sets, daily range): BP systolic 138–199; BP diastolic 72–99; PULSE 59–105; RESP 18–24; TEMP 36.1–36.9; O2SAT 90–99
[2021-10-25] MEDS: PHENobarbitaL 30 MG TABLET 60 MG PO ×3 (00:16→20:28)
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
[2021-10-25] MEDS: Haloperidol Lactate 5 MG/ML VIAL IM (00:59)
[2021-10-25] MEDS: hydrALAZINE HCl 20 MG/ML VIAL 5 MG IVPUSH (05:46)
[2021-10-25 07:21] LABS: Glucose, Whole Blood 274 mg/dL (60-115)
[2021-10-25] MEDS: Insulin Lispro 100 UNIT/ML 3 ML VIAL SUBCUT ×5 (07:35→20:27)
[2021-10-25] MEDS: Triamcinolone Acet 0.5 % Oint 15 GM TUBE 1 APPL TOPICAL ×2 (07:35→22:27)
[2021-10-25] MEDS: Valsartan 160 MG TABLET PO ×2 (07:36→20:28)
[2021-10-25] MEDS: 0.9 % Sodium Chloride Flush 3 ML SYRINGE IVFLUSH ×3 (07:36→20:28)
[2021-10-25] MEDS: Thiamine HCL 100 MG TABLET PO (07:36)
[2021-10-25] MEDS: hydrALAZINE HCl 10 MG TABLET PO ×2 (07:36→20:28)
[2021-10-25] MEDS: Spironolactone 25 MG TABLET 12.5 MG PO (07:36)
[2021-10-25] MEDS: Furosemide 40 MG/4 ML VIAL IVPUSH ×2 (07:36→17:49)
[2021-10-25] MEDS: Apixaban 5 MG TABLET PO ×2 (07:37→20:28)
[2021-10-25] MEDS: metFORMIN HCl 1,000 MG TABLET 1000 MG PO (07:37)
[2021-10-25] MEDS: Cyanocobalamin (Vitamin B-12) 1,000 MCG TABLET 1000 MCG PO (07:37)
[2021-10-25] MEDS: carvediloL 25 MG TABLET PO ×2 (07:37→20:28)
[2021-10-25] MEDS: Multivitamin TABLET 1 TAB PO (07:37)
[2021-10-25] MEDS: Folic Acid 1 MG TABLET PO (07:38)
[2021-10-25 07:48] LABS: Anion Gap 17 (12-20); Blood Urea Nitrogen 18 mg/dL (9-16); Calcium 9.2 mg/dL (8.4-10.2); Carbon Dioxide 30 mmol/L (22-29); Chloride 95 mmol/L (96-108); Estimated Glomerular Filt Rate > 60; Glucose Random 335 mg/dL (60-115); Sodium 138 mmol/L (135-145)
[2021-10-25 11:36] LABS: Glucose, Whole Blood 380 mg/dL (60-115)
--- NOTE | 2021-10-25 11:56 | P.PNIM_ITS ---
Subjective Subjective Date of Service: 10/25/21 <SUZETTE Payne - Last Filed: 10/25/21 12:30> 10/26/21 <Jadiel Kwan DO - Last Filed: 10/26/21 07:58> Interval History: Seen and examined this morning Follow-up for CHF, hypertension, AFib Overnight patient became agitated and combative, refusing medication and tele monitor This morning patient sleeping, arousable but tired and not interested in talking, unable to get reliable ROS <SUZETTE Payne - Last Filed: 10/25/21 12:30> Physical Exam Vital Signs: Vital Signs: Last Vital Signs Temp 97.0 F 10/25/21 11:29 Pulse 105 H 10/25/21 11:29 Resp 20 10/25/21 11:29 BP 138/91 H 10/25/21 11:29 Pulse Ox 97 10/25/21 11:29 BMI result Body Mass Index 30.8 <SUZETTE Payne - Last Filed: 10/25/21 12:30> Const: Other: sleeping, appears comfortable <SUZETTE Payne - Last Filed: 10/25/21 12:30> General: comfortable <SUZETTE Payne - Last Filed: 10/25/21 12:30> Nutritional Appearance: overweight <SUZETTE Payne - Last Filed: 10/25/21 12:30> Resp: Effort & Inspection: normal respiratory effort and able to speak in complete sentences <SUZETTE Payne - Last Filed: 10/25/21 12:30> Auscultation: clear to auscultation bilaterally <SUZETTE Payne - Last Filed: 10/25/21 12:30> Cardio: Jugular venous distension: JVD <SUZETTE Payne Last Filed: 10/25/21 12:30> Rate: tachycardic <SUZETTE Payne Last Filed: 10/25/21 12:30> Rhythm: abnormal rhythm irregularly irregular <SUZETTE Payne Last Filed: 10/25/21 12:30> Heart sounds: S1 normal heart sound present and S2 normal heart sound present <SUZETTE Payne - Last Filed: 10/25/21 12:30> GI: Inspection: No distended <SUZETTE Payne - Last Filed: 10/25/21 12:30> Palpation (GI): Soft to palpation and nontender <SUZETTE Payen - Last Filed: 10/25/21 12:30> Extrem: Other: b/l leg edema <SUZETTE Payne - Last Filed: 10/25/21 12:30> Objective Data Active Medications Acetaminophen (Acetaminophen 325 Mg Tablet) 650 mg PO Q6H PRN PRN Reason: Pain, Mild (Pain Scale 1-3) Last Admin: 10/24/21 16:32 Dose: 650 mg Documented by: LARON Albuterol/Ipratropium (Albuterol/Iprat 2.5/0.5mg 3 Ml Ampul.Neb) 3 ml INHALE RQ4H PRN PRN Reason: Shortness of Breath/Wheezing Last Admin: 10/24/21 15:25 Dose: 3 ml Documented by: ROSY Apixaban (Apixaban 5 Mg Tablet) 5 mg PO BID [facility] Last Admin: 10/25/21 07:37 Dose: 5 mg Documented by: BRYAN Carvedilol (Carvedilol 25 Mg Tablet) 25 mg PO BID [facility]; Protocol Last Admin: 10/25/21 07:37 Dose: 25 mg Documented by: BRYAN Cyanocobalamin (Cyanocobalamin (Vitamin B-12) 1,000 Mcg Tablet) 1,000 mcg PO DAILY [facility] Last Admin: 10/25/21 07:37 Dose: 1,000 mcg Documented by: BRYAN Dextrose (Dextrose 50 % 25 Gm/50 Ml Syringe) 25 gm IVPUSH Q15M PRN; Protocol PRN Reason: per Hypoglycemia Standing Ord. Docusate Sodium (Docusate Sodium 100 Mg Capsule) 100 mg PO DAILY PRN PRN Reason: Constipation Folic Acid (Folic Acid 1 Mg Tablet) 1 mg PO DAILY [facility] Last Admin: 10/25/21 07:38 Dose: 1 mg Documented by: BRYAN Furosemide (Furosemide 40 Mg/4 Ml Vial) 40 mg IVPUSH BID@0900,1800 [facility]; Protocol Last Admin: 10/25/21 07:36 Dose: 40 mg Documented by: BRYAN Glucose (Glucose Gel 15 Gm Gel..Gram.) 15 gm PO Q15M PRN; Protocol PRN Reason: per Hypoglycemia Standing Ord. Hydralazine HCl (Hydralazine Hcl 10 Mg Tablet) 10 mg PO BID [facility]; Protocol Last Admin: 10/25/21 07:36 Dose: 10 mg Documented by: BRYAN Insulin Human Lispro (Insulin Lispro 100 Unit/Ml 3 Ml Vial) 0 unit SUBCUT QIDACHS [facility]; Protocol Last Admin: 10/25/21 07:35 Dose: 6 unit Documented by: BRYAN Multivitamins/Vitamin C (Multivitamin Tablet) 1 tab PO DAILY [facility] Last Admin: 10/25/21 07:37 Dose: 1 tab Documented by: BRYAN Pharmacy Consult (Consult Rx Perform Med Rec) 1 each MISCELLANE ONCE PRN PRN Reason: Consult order Pharmacy Consult (Consult Rx Etoh Phenob Po Dose) 1 each MISCELLANE ONCE PRN; Protocol PRN Reason: Consult order Phenobarbital (Phenobarbital 30 Mg Tablet) 60 mg PO BID [facility]; Protocol Stop: 10/25/21 21:01 Last Admin: 10/25/21 07:37 Dose: 60 mg Documented by: BRYAN Phenobarbital (Phenobarbital 30 Mg Tablet) 30 mg PO BID [facility]; Protocol Stop: 10/27/21 21:01 Phenobarbital (Phenobarbital 15 Mg Tablet) 15 mg PO DAILY [facility]; Protocol Stop: 10/29/21 09:01 Pravastatin Sodium (Pravastatin Sodium 40 Mg Tablet) 40 mg PO BEDTIME [facility] Last Admin: 10/24/21 23:22 Dose: Not Given Documented by: VICENTE Non-Admin Reason: Patient Refused Sodium Chloride (0.9 % Sodium Chloride Flush 3 Ml Syringe) 3 ml IVFLUSH [facility] Last Admin: 10/25/21 07:36 Dose: 3 ml Documented by: BRYAN Spironolactone (Spironolactone 25 Mg Tablet) 12.5 mg PO DAILY [facility]; Protocol Last Admin: 10/25/21 07:36 Dose: 12.5 mg Documented by: BRYAN Thiamine HCl (Thiamine Hcl 100 Mg Tablet) 100 mg PO DAILY [facility] Last Admin: 10/25/21 07:36 Dose: 100 mg Documented by: BRYAN Triamcinolone Acetonide (Triamcinolone Acet 0.5 % Oint 15 Gm Tube) 1 appl TOPICAL BID [facility] Last Admin: 10/25/21 07:35 Dose: 1 appl Documented by: BRYAN Valsartan (Valsartan 160 Mg Tablet) 160 mg PO BID [facility]; Protocol Last Admin: 10/25/21 07:36 Dose: 160 mg Documented by: BRYAN <SUZETTE Payne - Last Filed: 10/25/21 12:30> Labs CBC & Chem 7: : 10/24/21 10:58 10/25/21 06:26 <SUZETTE Payne - Last Filed: 10/25/21 12:30> Labs: Laboratory Results - last 24 hr 10/24/21 10/24/21 10/24/21 10:58 10:58 16:30 Anion Gap Estim Creat Clear Calc Estimated GFR POC Glucose 268 H Random Glucose Estimat Average Glucose 326 Hemoglobin A1c % 13.0 Calcium TSH 2.14 10/24/21 10/25/21 10/25/21 19:55 06:26 07:15 Anion Gap 17 Estim Creat Clear Calc 97.0 Estimated GFR > 60 POC Glucose 129 H 274 H Random Glucose 335 H Estimat Average Glucose Hemoglobin A1c % Calcium 9.2 D TSH 10/25/21 11:32 Anion Gap Estim Creat Clear Calc Estimated GFR POC Glucose 380 H* Random Glucose Estimat Average Glucose Hemoglobin A1c % Calcium TSH <SUZETTE Payne - Last Filed: 10/25/21 12:30> Microbiology Microbiology Results: Microbiology 10/23/21 09:25 Blood Culture - Preliminary Blood - Venous No growth after 48 hours. 10/23/21 09:25 Blood Culture - Preliminary Blood - Venous No growth after 48 hours. <SUZETTE Payne - Last Filed: 10/25/21 12:30> Assessment and Plan (1) Chronic atrial fibrillation: Status: Acute <SUZETTE Payne - Last Filed: 10/25/21 12:30> (2) Acute systolic heart failure: Status: Acute <SUZETTE Payne - Last Filed: 10/25/21 12:30> Plan This is a 70 year old male with history of CHF, afib on eliquis and h/o alcohol dependence, recent admission for CHF who presents with shortness of breath Behavior changes/hallucinations h/o long standing etoh abuse but denies drinking daily since june, does not seem to be an active alcohol withdrawal Family concerned about behavioral changes, hallucinations, angry outbursts seen by psych, reporting hallucinations for the past 2 and half months- psych requested MRI brain, thiamine, folate levels Started on multivitamin, thiamine, folate supplementation Will need care team evaluation to determine need for inpatient psych when medically cleared possible vertebral artery occlusion MRI brain showing possible left vertebral artery occlusion, was unable to remain still for head/neck MRA, will attempt head/neck CTA Acute on chronic HFrEF Likely secondary to dietary indiscretion, uncontrolled blood pressure, uncontrolled HR trops flat, BNP 605 ECHO from 06/2001 with EF 20-25% -continue Diuresis with IV Lasix -Monitor I/O negative 2L to date -pt was planned to follow up with cardiology outpatient to plan biventricular ICD placement but is unclear if he actually follows with Cardiology as outpatient -seen by Cardiology, agree with ongoing diuresis, recommend to start Aldactone Uncontrolled HTN- BP elevated overnight, pt declined his meds seen by cardiology - change lisinopril to Diovan, add Aldactone Continue hydralazine, Coreg Monitor blood pressure closely AFIB with RVR HR still uncontrolled Continue Coreg continue Eliquis for anticoagulation seen by cardiology rec to start digoxin load (Diltiazem and clonidine discontinued on last admission) Hypomagnesemia Magnesium 1.5 on admission Improved with replacement Tele monitoring Chronic alcohol use/ risk for alcohol withdrawal pt states he stopped drinking after his admission in June but did have 4-5 shots last night History of alcohol withdrawal continue phenobarbital protocol to prevent alcohol withdrawal Poorly controlled Diabetes Hold Metformin and glipizide Hba1c 13.0 will start low dose lantus and uptitrate prn continue SSI and diabetic diet HLD formulary equivalent for pravastatin DVP ppx--Eliquis HCP - cj Varghese Attending: dr. Kwan Patient requires ongoing inpatient hospitalization due to uncontrolled heart rate, elevated blood pressure, risk for alcohol withdrawal, hypomagnesemia and need for medication adjustment for the same <SUZETTE Payne - Last Filed: 10/25/21 12:30> This is a 70 year old male with history of CHF, afib on eliquis and h/o alcohol dependence, recent admission for CHF who presents with shortness of breath Behavior changes/hallucinations h/o long standing etoh abuse but denies drinking daily since june, does not seem to be an active alcohol withdrawal Family concerned about behavioral changes, hallucinations, angry outbursts seen by psych, reporting hallucinations for the past 2 and half months- psych requested MRI brain, thiamine, folate levels Started on multivitamin, thiamine, folate supplementation Will need care team evaluation to determine need for inpatient psych when medically cleared possible vertebral artery occlusion MRI brain showing possible left vertebral artery occlusion, was unable to remain still for head/neck MRA, will attempt head/neck CTA Acute on chronic HFrEF Likely secondary to dietary indiscretion, uncontrolled blood pressure, uncontrolled HR trops flat, BNP 605 ECHO from 06/2001 with EF 20-25% -continue Diuresis with IV Lasix -Monitor I/O negative 2L to date -pt was planned to follow up with cardiology outpatient to plan biventricular ICD placement but is unclear if he actually follows with Cardiology as outpatient -seen by Cardiology, agree with ongoing diuresis, recommend to start Aldactone Uncontrolled HTN- BP elevated overnight, pt declined his meds seen by cardiology - change lisinopril to Diovan, add Aldactone Continue hydralazine, Coreg Monitor blood pressure closely AFIB with RVR HR still uncontrolled Continue Coreg continue Eliquis for anticoagulation seen by cardiology rec to start digoxin load (Diltiazem and clonidine discontinued on last admission) Hypomagnesemia Magnesium 1.5 on admission Improved with replacement Tele monitoring Chronic alcohol use/ risk for alcohol withdrawal pt states he stopped drinking after his admission in June but did have 4-5 shots last night History of alcohol withdrawal continue phenobarbital protocol to prevent alcohol withdrawal Poorly controlled Diabetes Hold Metformin and glipizide Hba1c 13.0 will start low dose lantus and uptitrate prn continue SSI and diabetic diet [facility] formulary equivalent for pravastatin DVP ppx--Eliquis HCP - cj Varghese Attending: dr. Kwan Chart reviewed; patient examined. Agree with history and physical and plan as outlined by Ms. Odonnell. Patient requires ongoing inpatient hospitalization due to uncontrolled heart rate, elevated blood pressure, risk for alcohol withdrawal, hypomagnesemia and need for medication adjustment for the same <Jadiel Kwan, DO - Last Filed: 10/26/21 07:58> Quality Stroke Does the patient have a stroke diagnosis?: No <SUZETTE Payne - Last Filed: 10/25/21 12:30> VTE Prior VTE?: No <SUZETTE Payne - Last Filed: 10/25/21 12:30> VTE Risk Level:: Medical - moderate - high <SUZETTE Payne - Last Filed: 10/25/21 12:30> VTE Device Contraindication: Treatment Not Indicated <SUZETTE Payne - Last Filed: 10/25/21 12:30> VTE Drug Contraindication: N/A - Med Ordered <SUZETTE Payne - Last Filed: 10/25/21 12:30>
[2021-10-25] MEDS: Digoxin 0.125 MG TABLET PO (15:00)
[2021-10-25 15:37] LABS: Glucose, Whole Blood 183 mg/dL (60-115)
[2021-10-25 20:20] LABS: Glucose, Whole Blood 279 mg/dL (60-115)
[2021-10-25] MEDS: Insulin Glargine,Hum.rec.anlog 100 UNIT/ML 10 ML VIAL 10 UNIT SUBCUT (20:26)
[2021-10-25] MEDS: Pravastatin Sodium 40 MG TABLET PO (20:28)
[2021-10-26] VITALS (7 sets, daily range): BP systolic 146–193; BP diastolic 70–92; PULSE 70–88; RESP 15–20; TEMP 36.4–37; O2SAT 92–98
[2021-10-26] MEDS: Insulin Lispro 100 UNIT/ML 3 ML VIAL SUBCUT ×4 (07:38→20:54)
[2021-10-26] MEDS: Furosemide 40 MG/4 ML VIAL IVPUSH (07:39)
[2021-10-26] MEDS: 0.9 % Sodium Chloride Flush 3 ML SYRINGE IVFLUSH ×2 (07:39→15:09)
[2021-10-26] MEDS: Digoxin 0.125 MG TABLET PO (07:40)
[2021-10-26] MEDS: Spironolactone 25 MG TABLET 12.5 MG PO ×2 (07:40→15:08)
[2021-10-26] MEDS: carvediloL 25 MG TABLET PO ×2 (07:41→20:53)
[2021-10-26] MEDS: Valsartan 160 MG TABLET PO ×2 (07:41→20:53)
[2021-10-26] MEDS: Multivitamin TABLET 1 TAB PO (07:41)
[2021-10-26] MEDS: Thiamine HCL 100 MG TABLET PO (07:41)
[2021-10-26] MEDS: PHENobarbitaL 30 MG TABLET PO ×2 (07:41→20:53)
[2021-10-26] MEDS: Apixaban 5 MG TABLET PO ×2 (07:42→20:53)
[2021-10-26] MEDS: Cyanocobalamin (Vitamin B-12) 1,000 MCG TABLET 1000 MCG PO (07:42)
[2021-10-26] MEDS: Folic Acid 1 MG TABLET PO (07:42)
[2021-10-26] MEDS: hydrALAZINE HCl 10 MG TABLET PO (07:42)
[2021-10-26] MEDS: Triamcinolone Acet 0.5 % Oint 15 GM TUBE 1 APPL TOPICAL ×2 (07:43→21:00)
[2021-10-26 08:07] LABS: Glucose, Whole Blood 326 mg/dL (60-115)
[2021-10-26 08:57] LABS: Anion Gap 14 (12-20); Blood Urea Nitrogen 19 mg/dL (9-16); Carbon Dioxide 33 mmol/L (22-29); Chloride 97 mmol/L (96-108); Estimated Glomerular Filt Rate > 60; Glucose Random 352 mg/dL (60-115); Potassium 3.7 mmol/L (3.3-5.1); Sodium 140 mmol/L (135-145)
[2021-10-26 11:40] LABS: Glucose, Whole Blood 293 mg/dL (60-115)
[2021-10-26] MEDS: iohexoL 350 MG/ML 100 ML INFUS..BTL IV (11:40)
--- NOTE | 2021-10-26 13:08 | HO.PM.IMPN ---
Subjective Subjective Date of Service: 10/26/21 <SUZETTE Payne - Last Filed: 10/26/21 14:29> 10/26/21 <Jadiel Kwan DO - Last Filed: 10/26/21 15:03> Interval History: seen and examined this morning, with the help of a certified court/medical interpreter Visitor brought patient [facility] overnight Declining to wear tele monitor Patient feels well, no complaints. Denies SOB, chest pain <SUZETTE Payne - Last Filed: 10/26/21 14:29> Review of Systems Review of Systems: Yes all other systems are reviewed and are negative <SUZETTE Payne - Last Filed: 10/26/21 14:29> Constitutional Constitutional: Denies chills and Denies fever(s) <SUZETTE Payne - Last Filed: 10/26/21 14:29> Cardiovascular Cardiovascular: Denies chest pain, Denies palpitations and Denies dyspnea <SUZETTE Payne - Last Filed: 10/26/21 14:29> Respiratory Respiratory: Denies cough and Denies dyspnea <SUZETTE Payne - Last Filed: 10/26/21 14:29> Gastrointestinal Gastrointestinal: Denies abdominal pain <SUZETTE Payne - Last Filed: 10/26/21 14:29> Endocrine Endocrine: Denies palpitations <SUZETTE Payne - Last Filed: 10/26/21 14:29> Physical Exam Vital Signs: Vital Signs: Last Vital Signs Temp 97.5 F 10/26/21 11:40 Pulse 83 10/26/21 11:40 Resp 20 10/26/21 11:40 BP 168/89 H 10/26/21 11:40 Pulse Ox 95 10/26/21 11:40 BMI result Body Mass Index 30.8 <SUZETTE Payne - Last Filed: 10/26/21 14:29> Const: Other: sleeping, appears comfortable <SUZETTE Payne - Last Filed: 10/26/21 14:29> General: comfortable <SUZETTE Payne - Last Filed: 10/26/21 14:29> Nutritional Appearance: overweight <SUZETTE Payne - Last Filed: 10/26/21 14:29> Resp: Effort & Inspection: normal respiratory effort and able to speak in complete sentences <SUZETTE Payne - Last Filed: 10/26/21 14:29> Auscultation: clear to auscultation bilaterally <SUZETTE Payne - Last Filed: 10/26/21 14:29> Cardio: Jugular venous distension: JVD <SUZETTE Payne - Last Filed: 10/26/21 14:29> Rhythm: abnormal rhythm irregularly irregular <SUZETTE Payne Last Filed: 10/26/21 14:29> Heart sounds: S1 normal heart sound present and S2 normal heart sound present <SUZETTE Payne Last Filed: 10/26/21 14:29> GI: Inspection: No distended <SUZETTE Payne - Last Filed: 10/26/21 14:29> Palpation (GI): Soft to palpation and nontender <SUZETTE Payne - Last Filed: 10/26/21 14:29> Extrem: Other: b/l leg edema <SUZETTE Payne Last Filed: 10/26/21 14:29> Objective Data Active Medications Acetaminophen (Acetaminophen 325 Mg Tablet) 650 mg PO Q6H PRN PRN Reason: Pain, Mild (Pain Scale 1-3) Last Admin: 10/24/21 16:32 Dose: 650 mg Documented by: LARON Albuterol/Ipratropium (Albuterol/Iprat 2.5/0.5mg 3 Ml Ampul.Neb) 3 ml INHALE RQ4H PRN PRN Reason: Shortness of Breath/Wheezing Last Admin: 10/24/21 15:25 Dose: 3 ml Documented by: ROSY Apixaban (Apixaban 5 Mg Tablet) 5 mg PO BID [facility] Last Admin: 10/26/21 07:42 Dose: 5 mg Documented by: BRYAN Carvedilol (Carvedilol 25 Mg Tablet) 25 mg PO BID [facility]; Protocol Last Admin: 10/26/21 07:41 Dose: 25 mg Documented by: BRYAN Cyanocobalamin (Cyanocobalamin (Vitamin B-12) 1,000 Mcg Tablet) 1,000 mcg PO DAILY [facility] Last Admin: 10/26/21 07:42 Dose: 1,000 mcg Documented by: BRYAN Dextrose (Dextrose 50 % 25 Gm/50 Ml Syringe) 25 gm IVPUSH Q15M PRN; Protocol PRN Reason: per Hypoglycemia Standing Ord. Digoxin (Digoxin 0.125 Mg Tablet) 0.125 mg PO DAILY [facility] Last Admin: 10/26/21 07:40 Dose: 0.125 mg Documented by: BRYAN Docusate Sodium (Docusate Sodium 100 Mg Capsule) 100 mg PO DAILY PRN PRN Reason: Constipation Folic Acid (Folic Acid 1 Mg Tablet) 1 mg PO DAILY [facility] Last Admin: 10/26/21 07:42 Dose: 1 mg Documented by: BRYAN Furosemide (Furosemide 40 Mg/4 Ml Vial) 40 mg IVPUSH BID@0900,1800 [facility]; Protocol Last Admin: 10/26/21 07:39 Dose: 40 mg Documented by: BRYAN Glucose (Glucose Gel 15 Gm Gel..Gram.) 15 gm PO Q15M PRN; Protocol PRN Reason: per Hypoglycemia Standing Ord. Hydralazine HCl (Hydralazine Hcl 10 Mg Tablet) 10 mg PO BID [facility]; Protocol Last Admin: 10/26/21 07:42 Dose: 10 mg Documented by: BRYAN Insulin Glargine (Insulin Glargine,Hum.Rec.Anlog 100 Unit/Ml 10 Ml Vial) 10 unit SUBCUT BEDTIME [facility] Last Admin: 10/25/21 20:26 Dose: 10 unit Documented by: VICENTE Insulin Human Lispro (Insulin Lispro 100 Unit/Ml 3 Ml Vial) 0 unit SUBCUT QIDACHS [facility]; Protocol Last Admin: 10/26/21 11:43 Dose: 6 unit Documented by: BRYAN Multivitamins/Vitamin C (Multivitamin Tablet) 1 tab PO DAILY [facility] Last Admin: 10/26/21 07:41 Dose: 1 tab Documented by: BRYAN Pharmacy Consult (Consult Rx Perform Med Rec) 1 each MISCELLANE ONCE PRN PRN Reason: Consult order Pharmacy Consult (Consult Rx Etoh Phenob Po Dose) 1 each MISCELLANE ONCE PRN; Protocol PRN Reason: Consult order Phenobarbital (Phenobarbital 30 Mg Tablet) 30 mg PO BID [facility]; Protocol Stop: 10/27/21 21:01 Last Admin: 10/26/21 07:41 Dose: 30 mg Documented by: BRYAN Phenobarbital (Phenobarbital 15 Mg Tablet) 15 mg PO DAILY [facility]; Protocol Stop: 10/29/21 09:01 Pravastatin Sodium (Pravastatin Sodium 40 Mg Tablet) 40 mg PO BEDTIME [facility] Last Admin: 10/25/21 20:28 Dose: 40 mg Documented by: VICENTE Sodium Chloride (0.9 % Sodium Chloride Flush 3 Ml Syringe) 3 ml IVFLUSH QSHIFT [facility] Last Admin: 10/26/21 07:39 Dose: 3 ml Documented by: BRYAN Spironolactone (Spironolactone 25 Mg Tablet) 12.5 mg PO DAILY [facility]; Protocol Last Admin: 10/26/21 07:40 Dose: 12.5 mg Documented by: BRYAN Thiamine HCl (Thiamine Hcl 100 Mg Tablet) 100 mg PO DAILY [facility] Last Admin: 10/26/21 07:41 Dose: 100 mg Documented by: BRYAN Triamcinolone Acetonide (Triamcinolone Acet 0.5 % Oint 15 Gm Tube) 1 appl TOPICAL BID [facility] Last Admin: 10/26/21 07:43 Dose: 1 appl Documented by: BRYAN Valsartan (Valsartan 160 Mg Tablet) 160 mg PO BID [facility]; Protocol Last Admin: 10/26/21 07:41 Dose: 160 mg Documented by: BRYAN <SUZETTE Payne - Last Filed: 10/26/21 14:29> Labs CBC & Chem 7: : 10/24/21 10:58 10/26/21 07:47 <SUZETTE Payne - Last Filed: 10/26/21 14:29> Labs: Laboratory Results - last 24 hr 10/25/21 10/25/21 10/26/21 15:32 20:16 07:18 Anion Gap Estim Creat Clear Calc Estimated GFR POC Glucose 183 H 279 H 326 H Random Glucose Calcium 10/26/21 10/26/21 07:47 11:37 Anion Gap 14 Estim Creat Clear Calc 90.0 Estimated GFR > 60 POC Glucose 293 H Random Glucose 352 H* Calcium 9.0 <SUZETTE Payne - Last Filed: 10/26/21 14:29> Microbiology Microbiology Results: Microbiology 10/23/21 09:25 Blood Culture - Preliminary Blood - Venous No growth after 48 hours. 10/23/21 09:25 Blood Culture - Preliminary Blood - Venous No growth after 48 hours. <SUZETTE Payne - Last Filed: 10/26/21 14:29> Assessment and Plan (1) Chronic atrial fibrillation: Status: Acute <SUZETTE Payne - Last Filed: 10/26/21 14:29> (2) Acute systolic heart failure: Status: Acute <SUZETTE Payne - Last Filed: 10/26/21 14:29> (3) Alcohol use disorder, severe, dependence: Status: Acute <SUZETTE Payne - Last Filed: 10/26/21 14:29> Plan This is a 70 year old male with history of CHF, afib on eliquis and h/o alcohol dependence, recent admission for CHF who presents with shortness of breath Behavior changes/hallucinations h/o long standing etoh abuse but denies drinking daily since june, does not seem to be an active alcohol withdrawal Family concerned about behavioral changes, hallucinations, angry outbursts seen by psych, reporting hallucinations for the past 2 and half months- psych requested MRI brain, thiamine, folate levels (b12, folate wnl) MRI showing possible vertebral artery occlusion, chronic lacunar infarcts Started on multivitamin, thiamine, folate supplementation Will need care team evaluation to determine need for inpatient psych when medically cleared Acute on chronic HFrEF Likely secondary to dietary indiscretion, uncontrolled blood pressure, uncontrolled HR. eating [employer] and intermittently refusing meds; unclear if Is&Os are accurate trops flat, BNP 605 ECHO from 06/2001 with EF 20-25% -increase Lasix to 80 bid -Monitor I/O -pt was planned to follow up with cardiology outpatient to plan biventricular ICD placement but is unclear if he actually follows with Cardiology as outpatient -increase Aldactone -cardiology following Uncontrolled HTN- BP not at goal lisinopril changed to Diovan Aldactone added on this admission, increased to 25 mg hydralazine increased to 25 bid continue Coreg Monitor blood pressure closely Plan to change to entreso tomorrow vertebral artery occlusion MRI brain showing possible left vertebral artery occlusion, was unable to remain still for head/neck MRA, will attempt head/neck CTA CTA reporting occlusion of left vertebral artery among other things. Will discuss with vascular surgery Continue statin AFIB with RVR HR improving, but pt refusing to keep monitor on Continue Coreg continue Eliquis for anticoagulation digoxin started on this admission (Diltiazem and clonidine discontinued on last admission) Cardiology following Hypomagnesemia Magnesium 1.5 on admission Improved with replacement Tele monitoring Chronic alcohol use/ risk for alcohol withdrawal does not appear to be in withdrawal pt states he stopped drinking after his admission in June but did have 4-5 shots night prior to admission History of alcohol withdrawal continue phenobarbital protocol to prevent alcohol withdrawal Poorly controlled Diabetes. patient not compliant with diabetic diet Hold Metformin and glipizide Hba1c 13.0 will start low dose lantus and uptitrate prn continue SSI and diabetic diet HLD formulary equivalent for pravastatin DVP ppx--Eliquis HCP - cj Varghese Attending: dr. Kwan Patient requires ongoing inpatient hospitalization due to uncontrolled heart rate, elevated blood pressure, risk for alcohol withdrawal, hypomagnesemia and need for medication adjustment for the same <SUZETTE Payne - Last Filed: 10/26/21 14:29> This is a 70 year old male with history of CHF, afib on eliquis and h/o alcohol dependence, recent admission for CHF who presents with shortness of breath Behavior changes/hallucinations h/o long standing etoh abuse but denies drinking daily since june, does not seem to be an active alcohol withdrawal Family concerned about behavioral changes, hallucinations, angry outbursts seen by psych, reporting hallucinations for the past 2 and half months- psych requested MRI brain, thiamine, folate levels (b12, folate wnl) MRI showing possible vertebral artery occlusion, chronic lacunar infarcts Started on multivitamin, thiamine, folate supplementation Will need care team evaluation to determine need for inpatient psych when medically cleared Acute on chronic HFrEF Likely secondary to dietary indiscretion, uncontrolled blood pressure, uncontrolled HR. eating [employer] and intermittently refusing meds; unclear if Is&Os are accurate trops flat, BNP 605 ECHO from 06/2001 with EF 20-25% -increase Lasix to 80 bid -Monitor I/O -pt was planned to follow up with cardiology outpatient to plan biventricular ICD placement but is unclear if he actually follows with Cardiology as outpatient -increase Aldactone -cardiology following Uncontrolled HTN- BP not at goal lisinopril changed to Diovan Aldactone added on this admission, increased to 25 mg hydralazine increased to 25 bid continue Coreg Monitor blood pressure closely Plan to change to entreso tomorrow vertebral artery occlusion MRI brain showing possible left vertebral artery occlusion, was unable to remain still for head/neck MRA, will attempt head/neck CTA CTA reporting occlusion of left vertebral artery among other things. Will discuss with vascular surgery Continue statin AFIB with RVR HR improving, but pt refusing to keep monitor on Continue Coreg continue Eliquis for anticoagulation digoxin started on this admission (Diltiazem and clonidine discontinued on last admission) Cardiology following Hypomagnesemia Magnesium 1.5 on admission Improved with replacement Tele monitoring Chronic alcohol use/ risk for alcohol withdrawal does not appear to be in withdrawal pt states he stopped drinking after his admission in June but did have 4-5 shots night prior to admission History of alcohol withdrawal continue phenobarbital protocol to prevent alcohol withdrawal Poorly controlled Diabetes. patient not compliant with diabetic diet Hold Metformin and glipizide Hba1c 13.0 will start low dose lantus and uptitrate prn continue SSI and diabetic diet HLD formulary equivalent for pravastatin DVP ppx--Eliquis HCP - cj Varghese Attending: dr. Kwan Chart reviewed; patient examined. Agree with history physical and plan as outlined by Ms. Odonnell Patient requires ongoing inpatient hospitalization due to uncontrolled heart rate, elevated blood pressure, risk for alcohol withdrawal, hypomagnesemia and need for medication adjustment for the same <Jadiel Kwan DO - Last Filed: 10/26/21 15:03> Quality Stroke Does the patient have a stroke diagnosis?: No <SUZETTE Payne - Last Filed: 10/26/21 14:29> VTE Prior VTE?: No <SUZETTE Payne - Last Filed: 10/26/21 14:29> VTE Risk Level:: Medical - moderate - high <SUZETTE Payne Last Filed: 10/26/21 14:29> VTE Device Contraindication: Treatment Not Indicated <SUZETTE Payne - Last Filed: 10/26/21 14:29> VTE Drug Contraindication: N/A - Med Ordered <SUZETTE Payne Last Filed: 10/26/21 14:29>
--- NOTE | 2021-10-26 13:53 | PM.PNCARD ---
Subjective Subjective Date of Service: 10/26/21 Principal diagnosis: Congestive heart failure Interval history: Abimael has been difficult to manage as he has had acute psychotic outbursts and has been refusing to comply with care. His intake and output chart may not be accurate. He has been sometimes refusing to take his medications. Overall however he still remains fluid overloaded and blood pressure is elevated. His medications all appear to be proper. Has a tentative diagnosis of Korsakoff's psychosis. Denies shortness of breath or palpitations. Heart rate has been adequately controlled Review of Systems Review of Systems Yes Unobtainable due to mental status Reports confusion Psychiatric: Reports confusion Physical Exam Vital Signs: Last Vital Signs Temp 97.5 F 10/26/21 11:40 Pulse 83 10/26/21 11:40 Resp 20 10/26/21 11:40 BP 168/89 H 10/26/21 11:40 Pulse Ox 95 10/26/21 11:40 BMI result Body Mass Index 30.8 Const General: cooperative, comfortable, no acute distress, alert, awake and confusion Nutritional Appearance: obese Orientation/consciousness: confusion Limitations: no limitations Neck Neck: Yes trachea midline, Yes supple and Yes JVD Resp Effort & Inspection: normal respiratory effort Auscultation: clear to auscultation bilaterally Cardio Palpation: abnormal PMI Rhythm: abnormal rhythm irregularly irregular Heart sounds: S1 normal heart sound present, S2 normal heart sound present, no click, no gallops, no murmurs and no rubs GI Inspection: Yes obesity Auscultation: normal bowel sounds Skin General skin exam: no rashes or lesions noted Neuro General: no focal motor deficits and confusion Extrem General: No clubbing, No cyanosis and Yes edema Psych Speech and movement: Psychomotor agitation in speech present Attitude: Belligerent attititude/behavior present Thought process: Confabulating thought process present Objective Labs and Meds Result diagrams: 10/24/21 10:58 10/26/21 07:47 Lab results: Laboratory Results - last 24 hr 10/25/21 10/25/21 10/26/21 15:32 20:16 07:18 Sodium Potassium Chloride Carbon Dioxide Anion Gap BUN Creatinine Estim Creat Clear Calc Estimated GFR POC Glucose 183 H 279 H 326 H Random Glucose Calcium 10/26/21 10/26/21 07:47 11:37 Sodium 140 Potassium 3.7 Chloride 97 Carbon Dioxide 33 H Anion Gap 14 BUN 19 H Creatinine 0.96 Estim Creat Clear Calc 90.0 Estimated GFR > 60 POC Glucose 293 H Random Glucose 352 H* Calcium 9.0 Imaging Radiologist's impression: Impressions Head/Neck CTA 10/26/21 11:25 IMPRESSION: - Left vertebral artery is occluded just beyond its origin with faint reconstitution throughout portions of the V2 segment. The V3 segment of the left vertebral artery is occluded. - [The intradural left vertebral artery is occluded. The intradural right vertebral artery is occluded just distal to the PICA origin. 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 Mid to distal basilar artery widely patent. 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 - Atherosclerotic calcification throughout the carotid siphons bilaterally resulting in moderate stenoses of the left cavernous ICA segment, the right paraclinoid ICA segment, and the left supraclinoid ICA segment. -No acute intracranial findings. Progress Note: A&P Assessment and plan (1) Acute systolic heart failure: Status: Acute Assessment and Plan: Systolic heart failure with fluid overloaded. Tepid response to IV Lasix. Increase Lasix to 80 mg b.i.d.. Part of the difficulty in managing his heart failure has been is outbursts and noncompliance. I discussed with him importance of complying and he agreed but not sure for how long. He has no insight into his disease. Will continue to optimize heart failure medications. Blood pressure is still elevated. Continue carvedilol, can consider increasing carvedilol to 37.5 mg b.i.d., hold off for now. Increase hydralazine to 25 mg b.i.d.. Continue Diovan 160 mg b.i.d.. Starting tomorrow can switch to Entresto therapy. Increase Aldactone to 25 mg daily. (2) Chronic atrial fibrillation: Status: Acute Assessment and Plan: Chronic atrial fibrillation, currently rate controlled. Continue carvedilol and digoxin therapy. Control his agitation. Continue full oral anticoagulation Eliquis. Again his difficulty in management is his psychosocial issues. Will continue to follow with you Fall Risk Details Current Medications: Current Medications Acetaminophen (Acetaminophen 325 Mg Tablet) 650 mg PO Q6H PRN PRN Reason: Pain, Mild (Pain Scale 1-3) Last Admin: 10/24/21 16:32 Dose: 650 mg Documented by: Albuterol/Ipratropium (Albuterol/Iprat 2.5/0.5mg 3 Ml Ampul.Neb) 3 ml INHALE RQ4H PRN PRN Reason: Shortness of Breath/Wheezing Last Admin: 10/24/21 15:25 Dose: 3 ml Documented by: Apixaban (Apixaban 5 Mg Tablet) 5 mg PO BID [facility] Last Admin: 10/26/21 07:42 Dose: 5 mg Documented by: Carvedilol (Carvedilol 25 Mg Tablet) 25 mg PO BID [facility]; Protocol Last Admin: 10/26/21 07:41 Dose: 25 mg Documented by: Cyanocobalamin (Cyanocobalamin (Vitamin B-12) 1,000 Mcg Tablet) 1,000 mcg PO DAILY [facility] Last Admin: 10/26/21 07:42 Dose: 1,000 mcg Documented by: Dextrose (Dextrose 50 % 25 Gm/50 Ml Syringe) 25 gm IVPUSH Q15M PRN; Protocol PRN Reason: per Hypoglycemia Standing Ord. Digoxin (Digoxin 0.125 Mg Tablet) 0.125 mg PO DAILY [facility] Last Admin: 10/26/21 07:40 Dose: 0.125 mg Documented by: Docusate Sodium (Docusate Sodium 100 Mg Capsule) 100 mg PO DAILY PRN PRN Reason: Constipation Folic Acid (Folic Acid 1 Mg Tablet) 1 mg PO DAILY [facility] Last Admin: 10/26/21 07:42 Dose: 1 mg Documented by: Furosemide (Furosemide 40 Mg/4 Ml Vial) 80 mg IVPUSH BID@0900,1800 [facility]; Protocol Glucose (Glucose Gel 15 Gm Gel..Gram.) 15 gm PO Q15M PRN; Protocol PRN Reason: per Hypoglycemia Standing Ord. Hydralazine HCl (Hydralazine Hcl 10 Mg Tablet) 10 mg PO BID [facility]; Protocol Last Admin: 10/26/21 07:42 Dose: 10 mg Documented by: Insulin Glargine (Insulin Glargine,Hum.Rec.Anlog 100 Unit/Ml 10 Ml Vial) 10 unit SUBCUT BEDTIME [facility] Last Admin: 10/25/21 20:26 Dose: 10 unit Documented by: Insulin Human Lispro (Insulin Lispro 100 Unit/Ml 3 Ml Vial) 0 unit SUBCUT QIDACHS [facility]; Protocol Last Admin: 10/26/21 11:43 Dose: 6 unit Documented by: Multivitamins/Vitamin C (Multivitamin Tablet) 1 tab PO DAILY [facility] Last Admin: 10/26/21 07:41 Dose: 1 tab Documented by: Pharmacy Consult (Consult Rx Perform Med Rec) 1 each MISCELLANE ONCE PRN PRN Reason: Consult order Pharmacy Consult (Consult Rx Etoh Phenob Po Dose) 1 each MISCELLANE ONCE PRN; Protocol PRN Reason: Consult order Phenobarbital (Phenobarbital 30 Mg Tablet) 30 mg PO BID [facility]; Protocol Stop: 10/27/21 21:01 Last Admin: 10/26/21 07:41 Dose: 30 mg Documented by: Phenobarbital (Phenobarbital 15 Mg Tablet) 15 mg PO DAILY [facility]; Protocol Stop: 10/29/21 09:01 Pravastatin Sodium (Pravastatin Sodium 40 Mg Tablet) 40 mg PO BEDTIME [facility] Last Admin: 10/25/21 20:28 Dose: 40 mg Documented by: Sodium Chloride (0.9 % Sodium Chloride Flush 3 Ml Syringe) 3 ml IVFLUSH QSHIFT [facility] Last Admin: 10/26/21 07:39 Dose: 3 ml Documented by: Spironolactone (Spironolactone 25 Mg Tablet) 12.5 mg PO DAILY [facility]; Protocol Last Admin: 10/26/21 07:40 Dose: 12.5 mg Documented by: Thiamine HCl (Thiamine Hcl 100 Mg Tablet) 100 mg PO DAILY [facility] Last Admin: 10/26/21 07:41 Dose: 100 mg Documented by: Triamcinolone Acetonide (Triamcinolone Acet 0.5 % Oint 15 Gm Tube) 1 appl TOPICAL BID [facility] Last Admin: 10/26/21 07:43 Dose: 1 appl Documented by: Valsartan (Valsartan 160 Mg Tablet) 160 mg PO BID [facility]; Protocol Last Admin: 10/26/21 07:41 Dose: 160 mg Documented by: Time Spent With Patient Time: Total time spent is greater than 50% in coordination of care (as documented) at patient's floor/unit and/or counseling patient: Progress Note: Quality Stroke Does the patient have a stroke diagnosis?: No Procedures Date of Service Date of Service: 10/26/21
[2021-10-26 14:03] LABS: Folate 10.2 ng/mL (> or = 4.0); Vitamin B12 525 pg/mL (200-900)
[2021-10-26 15:39] LABS: Glucose, Whole Blood 292 mg/dL (60-115)
[2021-10-26] MEDS: Furosemide 40 MG/4 ML VIAL 80 MG IVPUSH (18:10)
[2021-10-26 20:06] LABS: Glucose, Whole Blood 302 mg/dL (60-115)
[2021-10-26] MEDS: hydrALAZINE HCl 25 MG TABLET PO (20:53)
[2021-10-26] MEDS: Pravastatin Sodium 40 MG TABLET PO (20:53)
[2021-10-26] MEDS: Insulin Glargine,Hum.rec.anlog 100 UNIT/ML 10 ML VIAL 10 UNIT SUBCUT (20:54)
[2021-10-27 02:56] VITALS: BP 172/74; PULSE 72; RESP 15; TEMP 36.1; O2SAT 95
[2021-10-27 07:23] LABS: Anion Gap 15 (12-20); Blood Urea Nitrogen 18 mg/dL (9-16); Calcium 8.6 mg/dL (8.4-10.2); Carbon Dioxide 34 mmol/L (22-29); Chloride 96 mmol/L (96-108); Creatinine Clr Calc Pharmacy 92.9; Estimated Glomerular Filt Rate > 60; Glucose Random 354 mg/dL (60-115); Potassium 3.4 mmol/L (3.3-5.1); Sodium 142 mmol/L (135-145)
[2021-10-27 07:24] VITALS: BP 189/89; PULSE 75; RESP 20; TEMP 36.4; O2SAT 96
[2021-10-27 07:37] LABS: Glucose, Whole Blood 317 mg/dL (60-115)
[2021-10-27] MEDS: Insulin Lispro 100 UNIT/ML 3 ML VIAL SUBCUT ×7 (07:44→22:30)
[2021-10-27] MEDS: hydrALAZINE HCl 25 MG TABLET PO ×2 (07:45→22:28)
[2021-10-27] MEDS: Multivitamin TABLET 1 TAB PO (07:45)
[2021-10-27] MEDS: carvediloL 25 MG TABLET PO ×2 (07:45→22:28)
[2021-10-27] MEDS: 0.9 % Sodium Chloride Flush 3 ML SYRINGE IVFLUSH ×4 (07:45→22:31)
[2021-10-27] MEDS: PHENobarbitaL 30 MG TABLET PO ×2 (07:45→22:28)
[2021-10-27] MEDS: Spironolactone 25 MG TABLET PO (07:46)
[2021-10-27] MEDS: Valsartan 160 MG TABLET PO (07:46)
[2021-10-27] MEDS: Cyanocobalamin (Vitamin B-12) 1,000 MCG TABLET 1000 MCG PO (07:46)
[2021-10-27] MEDS: Apixaban 5 MG TABLET PO ×2 (07:46→22:29)
[2021-10-27] MEDS: Folic Acid 1 MG TABLET PO (07:46)
[2021-10-27] MEDS: Furosemide 40 MG/4 ML VIAL 80 MG IVPUSH ×2 (07:47→18:13)
[2021-10-27] MEDS: Thiamine HCL 100 MG TABLET PO (07:48)
[2021-10-27] MEDS: Triamcinolone Acet 0.5 % Oint 15 GM TUBE 1 APPL TOPICAL ×2 (07:48→21:00)
[2021-10-27] MEDS: Digoxin 0.125 MG TABLET PO (07:48)
[2021-10-27 11:14] LABS: Glucose, Whole Blood 344 mg/dL (60-115)
[2021-10-27 11:18] VITALS: BP 124/71; PULSE 80; RESP 20; TEMP 36.4; O2SAT 96
--- NOTE | 2021-10-27 13:01 | P.PNCA_ITS ---
Subjective Subjective Date of Service: 10/27/21 <KAREN Baker - Last Filed: 10/27/21 13:17> 10/27/21 <Soto Luz MD - Last Filed: 10/27/21 20:14> Principal diagnosis: Congestive heart failure <KAREN Baker - Last Filed: 10/27/21 13:17> Interval history: Cardiology follow up for CHF. Seen at 1110. Today he is sitting up in chair, no acute distress. Denies sob, chest pains, palpitations. Has leg swelling which he states is better than when he was admitted. He reports not sleeping well as bed uncomfortable and was awakened frequently. Certified Palestinian interpreters used. Reports that pt is oriented. <KAREN Baker - Last Filed: 10/27/21 13:17> Review of Systems Review of Systems as above <KAREN Baker - Last Filed: 10/27/21 13:17> Physical Exam Vital Signs: Last Vital Signs Temp 97.6 F 10/27/21 11:18 Pulse 80 10/27/21 11:18 Resp 20 10/27/21 11:18 BP 124/71 10/27/21 11:18 Pulse Ox 96 10/27/21 11:18 BMI result Body Mass Index 30.8 <KAREN Baker - Last Filed: 10/27/21 13:17> Const General: cooperative, no acute distress, alert and awake <KAREN Baker - Last Filed: 10/27/21 13:17> Orientation/consciousness: patient oriented x3 <KAREN Baker - Last Filed: 10/27/21 13:17> Neck Neck: Yes normal visual inspection and Yes no JVD <KAREN Baker - Last Filed: 10/27/21 13:17> Resp Effort & Inspection: normal respiratory effort, able to speak in complete sentences and not labored <KAREN Baker - Last Filed: 10/27/21 13:17> Auscultation: clear to auscultation bilaterally, no rales, no rhonchi and no wheezes <KAREN Baker - Last Filed: 10/27/21 13:17> Cardio Rate: regular rate <Celia Galo KATYC - Last Filed: 10/27/21 13:17> Rhythm: abnormal rhythm irregularly irregular <KATY BakerC - Last Filed: 10/27/21 13:17> Heart sounds: S1 normal heart sound present and S2 normal heart sound present <Celia Galo KAREN - Last Filed: 10/27/21 13:17> Peripheral pulses: Peripheral pulses 2+ throughout <KATY BakerC - Last Filed: 10/27/21 13:17> GI Inspection: Yes normal to inspection <Celia Galo KATY - Last Filed: 10/27/21 13:17> Neuro General: patient oriented x3 <Celia Galo KATY - Last Filed: 10/27/21 13:17> Extrem Other: Tight pitting edema to lower legs bilaterally. R>L, from knees down <Celia Galo KATY - Last Filed: 10/27/21 13:17> Objective Labs and Meds Result diagrams: : 10/24/21 10:58 10/27/21 06:21 <Celia Galo KATYC - Last Filed: 10/27/21 13:17> Lab results: Laboratory Results - last 24 hr 10/24/21 10/26/21 10/26/21 10:58 14:54 19:59 Sodium Potassium Chloride Carbon Dioxide Anion Gap BUN Creatinine Estim Creat Clear Calc Estimated GFR POC Glucose 292 H 302 H Random Glucose Calcium Vitamin B12 525 Folate 10.2 10/27/21 10/27/21 10/27/21 06:21 07:27 11:02 Sodium 142 Potassium 3.4 Chloride 96 Carbon Dioxide 34 H Anion Gap 15 BUN 18 H Creatinine 0.93 Estim Creat Clear Calc 92.9 Estimated GFR > 60 POC Glucose 317 H 344 H Random Glucose 354 H* Calcium 8.6 Vitamin B12 Folate <Celia Galo KATYC - Last Filed: 10/27/21 13:17> Imaging Radiologist's impression: Impressions Head/Neck CTA 10/26/21 11:25 IMPRESSION: - Left vertebral artery is occluded just beyond its origin with faint reconstitution throughout portions of the V2 segment. The V3 segment of the left vertebral artery is occluded. - [The intradural left vertebral artery is occluded. The intradural right vertebral artery is occluded just distal to the PICA origin. 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 Mid to distal basilar artery widely patent. 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 - Atherosclerotic calcification throughout the carotid siphons bilaterally resulting in moderate stenoses of the left cavernous ICA segment, the right paraclinoid ICA segment, and the left supraclinoid ICA segment. -No acute intracranial findings. <KAREN Baker - Last Filed: 10/27/21 13:17> Progress Note: A&P Assessment and plan (1) CHF (congestive heart failure): Status: Acute <KAREN Baker - Last Filed: 10/27/21 13:17> Assessment and Plan: Being treated for acute on chronic systolic HF. Last echo 06/2021 showed EF 20-25%. He does have LBBB, which is not new. Being diuresed with IV lasix with negative fluid balance 1 liter since admit. Aldactone and valsartan added ( changed from Lisinopril) Labs show Cr 0.93, K 3.4. He has been on Valsartan since 10/24. Plan to change to Entresto in the am. On exam he does have ongoing tight lower leg edema.Will continue Lasix 80mg IV BID. Continue Carvedilol, hydralazine. Strict I+O monitoring. Close monitoring of electrolyte and kidney function. Electrolyte replacement as warranted. Outpt plan for [facility]. We will follow. <KAREN Baker - Last Filed: 10/27/21 13:17> (2) Chronic atrial fibrillation: Status: Acute <KAREN Baker - Last Filed: 10/27/21 13:17> Assessment and Plan: Being treated with rate control. On Carvedilol. Tele shows afib/ flutter IVCD, rate 68-80. On Eliquis for anticoagulation. No bleeding issues noted. Continue current tx. <KAREN Baker - Last Filed: 10/27/21 13:17> (3) Cardiomyopathy: Status: Acute <KATY BakerC - Last Filed: 10/27/21 13:17> Assessment and Plan: As above. <KAREN Baker - Last Filed: 10/27/21 13:17> (4) HTN (hypertension): Status: Acute <KATY BakerC - Last Filed: 10/27/21 13:17> Assessment and Plan: Elevated this admit. Can further increase hydralazine if needed <KATY BakerC - Last Filed: 10/27/21 13:17> (5) LBBB (left bundle branch block): Status: Acute <KAREN Bkaer - Last Filed: 10/27/21 13:17> Plan Patient seen and examined at bedside. Quite angry and agitated. She peripheral edema 1 to 2+ on the legs. On IV diuretics. I think we continue diuretics cu rrently. Blood pressure is elevated due to agitation. Thank you for allowing me to participate in the care of your patient. Please feel free to contact me if you have any questions. <Soto Luz MD - Last Filed: 10/27/21 20:14> Fall Risk Details Current Medications: Current Medications Acetaminophen (Acetaminophen 325 Mg Tablet) 650 mg PO Q6H PRN PRN Reason: Pain, Mild (Pain Scale 1-3) Last Admin: 10/24/21 16:32 Dose: 650 mg Documented by: Albuterol/Ipratropium (Albuterol/Iprat 2.5/0.5mg 3 Ml Ampul.Neb) 3 ml INHALE RQ4H PRN PRN Reason: Shortness of Breath/Wheezing Last Admin: 10/24/21 15:25 Dose: 3 ml Documented by: Apixaban (Apixaban 5 Mg Tablet) 5 mg PO BID [facility] Last Admin: 10/27/21 07:46 Dose: 5 mg Documented by: Carvedilol (Carvedilol 25 Mg Tablet) 25 mg PO BID [facility]; Protocol Last Admin: 10/27/21 07:45 Dose: 25 mg Documented by: Cyanocobalamin (Cyanocobalamin (Vitamin B-12) 1,000 Mcg Tablet) 1,000 mcg PO DAILY [facility] Last Admin: 10/27/21 07:46 Dose: 1,000 mcg Documented by: Dextrose (Dextrose 50 % 25 Gm/50 Ml Syringe) 25 gm IVPUSH Q15M PRN; Protocol PRN Reason: per Hypoglycemia Standing Ord. Digoxin (Digoxin 0.125 Mg Tablet) 0.125 mg PO DAILY [facility] Last Admin: 10/27/21 07:48 Dose: 0.125 mg Documented by: Docusate Sodium (Docusate Sodium 100 Mg Capsule) 100 mg PO DAILY PRN PRN Reason: Constipation Folic Acid (Folic Acid 1 Mg Tablet) 1 mg PO DAILY [facility] Last Admin: 10/27/21 07:46 Dose: 1 mg Documented by: Furosemide (Furosemide 40 Mg/4 Ml Vial) 80 mg IVPUSH BID@0900,1800 [facility]; Protocol Last Admin: 10/27/21 07:47 Dose: 80 mg Documented by: Glucose (Glucose Gel 15 Gm Gel..Gram.) 15 gm PO Q15M PRN; Protocol PRN Reason: per Hypoglycemia Standing Ord. Hydralazine HCl (Hydralazine Hcl 25 Mg Tablet) 25 mg PO BID [facility]; Protocol Last Admin: 10/27/21 07:45 Dose: 25 mg Documented by: Insulin Glargine (Insulin Glargine,Hum.Rec.Anlog 100 Unit/Ml 10 Ml Vial) 20 unit SUBCUT BEDTIME [facility] Insulin Human Lispro (Insulin Lispro 100 Unit/Ml 3 Ml Vial) 0 unit SUBCUT QIDACHS [facility]; Protocol Last Admin: 10/27/21 11:44 Dose: 8 unit Documented by: Insulin Human Lispro (Insulin Lispro 100 Unit/Ml 3 Ml Vial) 5 unit SUBCUT QIDACHS [facility] Last Admin: 10/27/21 11:44 Dose: 5 unit Documented by: Multivitamins/Vitamin C (Multivitamin Tablet) 1 tab PO DAILY [facility] Last Admin: 10/27/21 07:45 Dose: 1 tab Documented by: Pharmacy Consult (Consult Rx Perform Med Rec) 1 each MISCELLANE ONCE PRN PRN Reason: Consult order Pharmacy Consult (Consult Rx Etoh Phenob Po Dose) 1 each MISCELLANE ONCE PRN; Protocol PRN Reason: Consult order Phenobarbital (Phenobarbital 30 Mg Tablet) 30 mg PO BID [facility]; Protocol Stop: 10/27/21 21:01 Last Admin: 10/27/21 07:45 Dose: 30 mg Documented by: Phenobarbital (Phenobarbital 15 Mg Tablet) 15 mg PO DAILY [facility]; Protocol Stop: 10/29/21 09:01 Pravastatin Sodium (Pravastatin Sodium 40 Mg Tablet) 40 mg PO BEDTIME [facility] Last Admin: 10/26/21 20:53 Dose: 40 mg Documented by: Sodium Chloride (0.9 % Sodium Chloride Flush 3 Ml Syringe) 3 ml IVFLUSH QSHIFT [facility] Last Admin: 10/27/21 07:45 Dose: 3 ml Documented by: Spironolactone (Spironolactone 25 Mg Tablet) 25 mg PO DAILY [facility]; Protocol Last Admin: 10/27/21 07:46 Dose: 25 mg Documented by: Thiamine HCl (Thiamine Hcl 100 Mg Tablet) 100 mg PO DAILY [facility] Last Admin: 10/27/21 07:48 Dose: 100 mg Documented by: Triamcinolone Acetonide (Triamcinolone Acet 0.5 % Oint 15 Gm Tube) 1 appl TOPICAL BID [facility] Last Admin: 10/27/21 07:48 Dose: 1 appl Documented by: Valsartan (Valsartan 160 Mg Tablet) 160 mg PO BID [facility]; Protocol Last Admin: 10/27/21 07:46 Dose: 160 mg Documented by: <KAREN Baker - Last Filed: 10/27/21 13:17> Time Spent With Patient Time: Total time spent is greater than 50% in coordination of care (as documented) at patient's floor/unit and/or counseling patient: <KAREN Baker - Last Filed: 10/27/21 13:17> Progress Note: Quality Stroke Does the patient have a stroke diagnosis?: No <KAREN Baker - Last Filed: 10/27/21 13:17> Procedures Date of Service Date of Service: 10/27/21 <KAREN Baker - Last Filed: 10/27/21 13:17>
[2021-10-27] MEDS: Acetaminophen 325 MG TABLET 650 MG PO (13:21)
--- NOTE | 2021-10-27 13:36 | MHC.CM.PN ---
per rounds pts not ready for dc bp is high care team to see pt for possible liana psych
--- NOTE | 2021-10-27 14:55 | P.PNIM_ITS ---
Subjective Subjective Date of Service: 10/27/21 Review of Systems follow-up congestive heart failure No shortness of breath Confused unable to give accurate history Physical Exam Vital Signs: Vital Signs: Last Vital Signs Temp 97.6 F 10/27/21 11:18 Pulse 80 10/27/21 11:18 Resp 20 10/27/21 11:18 BP 124/71 10/27/21 11:18 Pulse Ox 96 10/27/21 11:18 BMI result Body Mass Index 30.8 Appearing in no acute distress lung sounds mild rales heart regular rate rhythm, clear S1, S2 positive bowel sounds, abdomen is soft, nontender neuro patient is confused Objective Data Active Medications Acetaminophen (Acetaminophen 325 Mg Tablet) 650 mg PO Q6H PRN PRN Reason: Pain, Mild (Pain Scale 1-3) Last Admin: 10/27/21 13:21 Dose: 650 mg Documented by: CECILIA Albuterol/Ipratropium (Albuterol/Iprat 2.5/0.5mg 3 Ml Ampul.Neb) 3 ml INHALE RQ4H PRN PRN Reason: Shortness of Breath/Wheezing Last Admin: 10/24/21 15:25 Dose: 3 ml Documented by: ROSY Apixaban (Apixaban 5 Mg Tablet) 5 mg PO BID [facility]S [facility]CLUDE 234 BEDS AT THE [facility] Last Admin: 10/27/21 07:46 Dose: 5 mg Documented by: BRYAN Carvedilol (Carvedilol 25 Mg Tablet) 25 mg PO BID COUNTS INCLUDE 234 BEDS AT THE [facility]; Protocol Last Admin: 10/27/21 07:45 Dose: 25 mg Documented by: BRYAN Cyanocobalamin (Cyanocobalamin (Vitamin B-12) 1,000 Mcg Tablet) 1,000 mcg PO DAILY COUNTS INCLUDE 234 BEDS AT THE [facility] Last Admin: 10/27/21 07:46 Dose: 1,000 mcg Documented by: BRYAN Dextrose (Dextrose 50 % 25 Gm/50 Ml Syringe) 25 gm IVPUSH Q15M PRN; Protocol PRN Reason: per Hypoglycemia Standing Ord. Digoxin (Digoxin 0.125 Mg Tablet) 0.125 mg PO DAILY COUNTS INCLUDE 234 BEDS AT THE [facility] Last Admin: 10/27/21 07:48 Dose: 0.125 mg Documented by: BRYAN Docusate Sodium (Docusate Sodium 100 Mg Capsule) 100 mg PO DAILY PRN PRN Reason: Constipation Folic Acid (Folic Acid 1 Mg Tablet) 1 mg PO DAILY COUNTS INCLUDE 234 BEDS AT THE [facility] Last Admin: 10/27/21 07:46 Dose: 1 mg Documented by: BRYAN Furosemide (Furosemide 40 Mg/4 Ml Vial) 80 mg IVPUSH BID@0900,1800 COUNTS INCLUDE 234 BEDS AT THE [facility]; Protocol Last Admin: 10/27/21 07:47 Dose: 80 mg Documented by: BRYAN Glucose (Glucose Gel 15 Gm Gel..Gram.) 15 gm PO Q15M PRN; Protocol PRN Reason: per Hypoglycemia Standing Ord. Hydralazine HCl (Hydralazine Hcl 25 Mg Tablet) 25 mg PO BID COUNTS INCLUDE 234 BEDS AT THE [facility]; Protocol Last Admin: 10/27/21 07:45 Dose: 25 mg Documented by: BRYAN Insulin Glargine (Insulin Glargine,Hum.Rec.Anlog 100 Unit/Ml 10 Ml Vial) 20 uni t SUBCUT BEDTIME COUNTS INCLUDE 234 BEDS AT THE [facility] Insulin Human Lispro (Insulin Lispro 100 Unit/Ml 3 Ml Vial) 0 unit SUBCUT QIDACHS COUNTS INCLUDE 234 BEDS AT THE [facility]; Protocol Last Admin: 10/27/21 11:44 Dose: 8 unit Documented by: CECILIA Insulin Human Lispro (Insulin Lispro 100 Unit/Ml 3 Ml Vial) 5 unit SUBCUT QIDACHS COUNTS INCLUDE 234 BEDS AT THE [facility] Last Admin: 10/27/21 11:44 Dose: 5 unit Documented by: CECILIA Multivitamins/Vitamin C (Multivitamin Tablet) 1 tab PO DAILY COUNTS INCLUDE 234 BEDS AT THE [facility] Last Admin: 10/27/21 07:45 Dose: 1 tab Documented by: BRYAN Pharmacy Consult (Consult Rx Perform Med Rec) 1 each MISCELLANE ONCE PRN PRN Reason: Consult order Pharmacy Consult (Consult Rx Etoh Phenob Po Dose) 1 each MISCELLANE ONCE PRN; Protocol PRN Reason: Consult order Phenobarbital (Phenobarbital 30 Mg Tablet) 30 mg PO BID COUNTS INCLUDE 234 BEDS AT THE [facility]; Protocol Stop: 10/27/21 21:01 Last Admin: 10/27/21 07:45 Dose: 30 mg Documented by: BRYAN Phenobarbital (Phenobarbital 15 Mg Tablet) 15 mg PO DAILY [facility]S INCLUDE 234 BEDS AT THE [facility]; Protocol Stop: 10/29/21 09:01 Pravastatin Sodium (Pravastatin Sodium 40 Mg Tablet) 40 mg PO BEDTIME COUNTS INCLUDE 234 BEDS AT THE [facility] Last Admin: 10/26/21 20:53 Dose: 40 mg Documented by: MISSY Sacubitril/Valsartan (Sacubitril/Valsartan 49/51 1 Tab Tablet) 1 tab PO BID COUNTS INCLUDE 234 BEDS AT THE [facility]; Protocol Sodium Chloride (0.9 % Sodium Chloride Flush 3 Ml Syringe) 3 ml IVFLUSH QSHIFT COUNTS INCLUDE 234 BEDS AT THE [facility] Last Admin: 10/27/21 07:45 Dose: 3 ml Documented by: BRYAN Spironolactone (Spironolactone 25 Mg Tablet) 25 mg PO DAILY COUNTS INCLUDE 234 BEDS AT THE [facility]; Protocol Last Admin: 10/27/21 07:46 Dose: 25 mg Documented by: BRYAN Thiamine HCl (Thiamine Hcl 100 Mg Tablet) 100 mg PO DAILY COUNTS INCLUDE 234 BEDS AT THE [facility] Last Admin: 10/27/21 07:48 Dose: 100 mg Documented by: BRYAN Triamcinolone Acetonide (Triamcinolone Acet 0.5 % Oint 15 Gm Tube) 1 appl TOPICAL BID COUNTS INCLUDE 234 BEDS AT THE [facility] Last Admin: 10/27/21 07:48 Dose: 1 appl Documented by: BRYAN Labs CBC & Chem 7: 10/24/21 10:58 10/27/21 06:21 Labs: Laboratory Results - last 24 hr 10/26/21 10/26/21 10/27/21 14:54 19:59 06:21 Anion Gap 15 Estim Creat Clear Calc 92.9 Estimated GFR > 60 POC Glucose 292 H 302 H Random Glucose 354 H* Calcium 8.6 10/27/21 10/27/21 07:27 11:02 Anion Gap Estim Creat Clear Calc Estimated GFR POC Glucose 317 H 344 H Random Glucose Calcium Assessment and Plan (1) Chronic atrial fibrillation: Status: Acute (2) Acute systolic heart failure: Status: Acute (3) Alcohol use disorder, severe, dependence: Status: Acute Plan This is a 70 year old male with history of CHF, afib on eliquis and h/o alcohol dependence, recent admission for CHF who presents with shortness of breath Behavior changes/hallucinations history of alcohol abuse in the past seen by psych, reporting hallucinations for the past 2 and half months, MRI showing possible vertebral artery occlusion; discussed with vascular surgery nothing to do, chronic lacunar infarcts Started on multivitamin, thiamine, folate supplementation Will need care team evaluation to determine need for inpatient psych when medically cleared Acute on chronic HFrEF Likely secondary to dietary indiscretion, uncontrolled blood pressure, uncontrolled HR. trops flat, elevated BNP ECHO from 06/2001 with EF 20-25% continue Lasix to 80 bid, aldactone Monitor I/O pt was planned to follow up with cardiology outpatient to plan biventricular ICD placement but is unclear if he actually follows with Cardiology as outpatient cardiology following Uncontrolled HTN continue Diovan, Aldactone , hydralazine, Coreg Monitor blood pressure closely Start entreso vertebral artery occlusion MRI brain showing possible left vertebral artery occlusion CTA reporting occlusion of left vertebral artery among other things. nothing to do at this point as per vascular surgery Continue statin AFIB with RVR HR improving, but pt refusing to keep monitor on Continue Coreg, digoxin continue Eliquis for anticoagulation Cardiology following Hypomagnesemia. Repleted and resolved Chronic alcohol use/ risk for alcohol withdrawal does not appear to be in withdrawal pt states he stopped drinking after his admission in June but did have 4-5 shots night prior to admission History of alcohol withdrawal continue phenobarbital protocol to prevent alcohol withdrawal Poorly controlled Diabetes. patient not compliant with diabetic diet Hold Metformin and glipizide Hba1c 13.0 Lantus increased to 20 units at bedtime, mealtime insulin 5 units before meals and at bedtime, continue sliding scale HLD statin DVP ppx--Eliquis HCP - cj Varghese Attending: dr. Jimenez Patient requires ongoing inpatient hospitalization due to uncontrolled heart rate, elevated blood pressure, risk for alcohol withdrawal, hypomagnesemia and need for medication adjustment for the same and continued diuresis Quality Stroke Does the patient have a stroke diagnosis?: No VTE Prior VTE?: No VTE Risk Level:: Medical - moderate - high VTE Device Contraindication: Treatment Not Indicated VTE Drug Contraindication: N/A - Med Ordered
[2021-10-27 15:20] VITALS: BP 152/85; PULSE 75; RESP 18; TEMP 36.4; O2SAT 96
[2021-10-27 15:58] LABS: Glucose, Whole Blood 185 mg/dL (60-115)
[2021-10-27 19:10] VITALS: BP 173/88; PULSE 82; RESP 18; TEMP 36.5; O2SAT 96
[2021-10-27 20:27] LABS: Glucose, Whole Blood 200 mg/dL (60-115)
[2021-10-27] MEDS: Pravastatin Sodium 40 MG TABLET PO (22:28)
[2021-10-27] MEDS: Sacubitril/Valsartan 49/51 1 TAB TABLET PO (22:28)
[2021-10-27] MEDS: Insulin Glargine,Hum.rec.anlog 100 UNIT/ML 10 ML VIAL 20 UNIT SUBCUT (22:30)
[2021-10-27 23:40] VITALS: BP 127/70; PULSE 74; RESP 19; TEMP 36.7; O2SAT 93
[2021-10-28 04:00] VITALS: BP 134/77; PULSE 76; RESP 20; TEMP 36.4; O2SAT 96
[2021-10-28 07:24] LABS: Anion Gap 15 (12-20); Blood Urea Nitrogen 18 mg/dL (9-16); Carbon Dioxide 34 mmol/L (22-29); Chloride 95 mmol/L (96-108); Creatinine Clr Calc Pharmacy 100.4; Estimated Glomerular Filt Rate > 60; Glucose Random 255 mg/dL (60-115); Potassium 3.4 mmol/L (3.3-5.1); Sodium 141 mmol/L (135-145)
[2021-10-28 07:26] VITALS: BP 127/91; PULSE 74; RESP 20; TEMP 36.3; O2SAT 94
[2021-10-28 07:28] LABS: B Type Natriuretic Peptide 898 pg/mL (<100)
[2021-10-28 07:48] LABS: Glucose, Whole Blood 243 mg/dL (60-115)
[2021-10-28] MEDS: Apixaban 5 MG TABLET PO ×2 (08:13→21:01)
[2021-10-28] MEDS: PHENobarbitaL 15 MG TABLET PO (08:13)
[2021-10-28] MEDS: Spironolactone 25 MG TABLET PO (08:14)
[2021-10-28] MEDS: Sacubitril/Valsartan 49/51 1 TAB TABLET PO ×2 (08:14→21:01)
[2021-10-28] MEDS: Multivitamin TABLET 1 TAB PO (08:15)
[2021-10-28] MEDS: Cyanocobalamin (Vitamin B-12) 1,000 MCG TABLET 1000 MCG PO (08:15)
[2021-10-28] MEDS: Folic Acid 1 MG TABLET PO (08:15)
[2021-10-28] MEDS: Thiamine HCL 100 MG TABLET PO (08:15)
[2021-10-28] MEDS: carvediloL 25 MG TABLET PO ×2 (08:15→21:01)
[2021-10-28] MEDS: Furosemide 40 MG/4 ML VIAL 80 MG IVPUSH ×2 (08:15→18:11)
[2021-10-28] MEDS: hydrALAZINE HCl 25 MG TABLET PO ×2 (08:15→21:01)
[2021-10-28] MEDS: Insulin Lispro 100 UNIT/ML 3 ML VIAL SUBCUT ×8 (08:16→21:00)
[2021-10-28] MEDS: Digoxin 0.125 MG TABLET PO (08:16)
[2021-10-28] MEDS: 0.9 % Sodium Chloride Flush 3 ML SYRINGE IVFLUSH ×2 (08:20→16:44)
--- NOTE | 2021-10-28 09:37 | PM.PNCARD ---
Subjective Subjective Date of Service: 10/28/21 Principal diagnosis: Congestive heart failure, CMP Interval history: Cardiology follow up for CHF, CMP. Seen at 0915. Today he is observed sitting up in recliner. Reports feeling well. Denies sob, chest discomfort, palpitation. Steady on feet with use of cane. Leg edema improving. Certified wild life photographer used. Reports pt is oriented X3. Review of Systems Review of Systems as above Yes all other systems are reviewed and are negative Physical Exam Vital Signs: Last Vital Signs Temp 97.3 F 10/28/21 07:26 Pulse 74 10/28/21 07:26 Resp 20 10/28/21 07:26 BP 127/91 H 10/28/21 07:26 Pulse Ox 94 10/28/21 07:26 BMI result Body Mass Index 30.8 Const General: cooperative, no acute distress, alert and awake Orientation/consciousness: patient oriented x3 Neck Neck: Yes normal visual inspection and Yes no JVD Resp Effort & Inspection: normal respiratory effort, able to speak in complete sentences and not labored Auscultation: clear to auscultation bilaterally, no rales, no rhonchi and no wheezes Cardio Rate: regular rate Rhythm: abnormal rhythm Heart sounds: S1 normal heart sound present and S2 normal heart sound present Peripheral pulses: Peripheral pulses 2+ throughout GI Inspection: Yes normal to inspection Skin General skin exam: no rashes or lesions noted Neuro General: patient oriented x3 Extrem General: Yes normal to inspection and No edema Objective Labs and Meds Result diagrams: 10/24/21 10:58 10/28/21 06:32 Lab results: Laboratory Results - last 24 hr 10/27/21 10/27/21 10/27/21 11:02 15:55 20:07 Sodium Potassium Chloride Carbon Dioxide Anion Gap BUN Creatinine Estim Creat Clear Calc Estimated GFR POC Glucose 344 H 185 H 200 H Random Glucose Calcium B-Natriuretic Peptide 10/28/21 10/28/21 10/28/21 06:32 06:32 07:26 Sodium 141 Potassium 3.4 Chloride 95 L Carbon Dioxide 34 H Anion Gap 15 BUN 18 H Creatinine 0.86 Estim Creat Clear Calc 100.4 Estimated GFR > 60 POC Glucose 243 H Random Glucose 255 H Calcium 9.0 B-Natriuretic Peptide 898 H Progress Note: A&P Assessment and plan (1) CHF (congestive heart failure): Status: Acute Assessment and Plan: Being treated for acute on chronic systolic HF. Last echo 06/2021 showed EF 20-25%. He does have LBBB, which is not new. Being diuresed with IV lasix with even fluid balance - unclear accuracy of this. Aldactone added this admit. Lisinopril stopped on admit, changed to valsartan and yesterday was changed to Entresto for optimal heart failure managment. Labs this am show Cr 0.86, K 3.4, BNP today 898, up from 605. On exam he continues to have 1-2+ pitting edema of lower legs, R>L. Continue to diurese with IV Lasix at 80mg BID. Continue Carvedilol, Entresto, hydralazine. Strict I+O monitoring. Close monitoring of electrolyte and kidney function. Electrolyte replacement as warranted. Outpt plan for CLINICAL NEUROPSYCHOLOGIST-D.? BMP and BNP in am. We will follow.? (2) Cardiomyopathy: Status: Acute Assessment and Plan: as above (3) LBBB (left bundle branch block): Status: Acute Assessment and Plan: Not new finding (4) Chronic atrial fibrillation: Status: Acute Assessment and Plan: Being treated with rate control. On Carvedilol and Digoxin. Tele shows afib/ flutter IVCD, rate 68-80. On Eliquis for anticoagulation. No bleeding issues noted. Continue current tx. (5) HTN (hypertension): Status: Acute Assessment and Plan: BP has been elevated this admit. Aldactone added, hydralazine dose increased. Now on Entresto as well. Pt had been agitated at times during this admit, adding to his elevated readings. BP much better at this time. Continue current tx. Fall Risk Details Current Medications: Current Medications Acetaminophen (Acetaminophen 325 Mg Tablet) 650 mg PO Q6H PRN PRN Reason: Pain, Mild (Pain Scale 1-3) Last Admin: 10/27/21 13:21 Dose: 650 mg Documented by: Albuterol/Ipratropium (Albuterol/Iprat 2.5/0.5mg 3 Ml Ampul.Neb) 3 ml INHALE RQ4H PRN PRN Reason: Shortness of Breath/Wheezing Last Admin: 10/24/21 15:25 Dose: 3 ml Documented by: Apixaban (Apixaban 5 Mg Tablet) 5 mg PO BID [facility] Last Admin: 10/28/21 08:13 Dose: 5 mg Documented by: Carvedilol (Carvedilol 25 Mg Tablet) 25 mg PO BID [facility]; Protocol Last Admin: 10/28/21 08:15 Dose: 25 mg Documented by: Cyanocobalamin (Cyanocobalamin (Vitamin B-12) 1,000 Mcg Tablet) 1,000 mcg PO DAILY [facility] Last Admin: 10/28/21 08:15 Dose: 1,000 mcg Documented by: Dextrose (Dextrose 50 % 25 Gm/50 Ml Syringe) 25 gm IVPUSH Q15M PRN; Protocol PRN Reason: per Hypoglycemia Standing Ord. Digoxin (Digoxin 0.125 Mg Tablet) 0.125 mg PO DAILY [facility] Last Admin: 10/28/21 08:16 Dose: 0.125 mg Documented by: Docusate Sodium (Docusate Sodium 100 Mg Capsule) 100 mg PO DAILY PRN PRN Reason: Constipation Folic Acid (Folic Acid 1 Mg Tablet) 1 mg PO DAILY [facility] Last Admin: 10/28/21 08:15 Dose: 1 mg Documented by: Furosemide (Furosemide 40 Mg/4 Ml Vial) 80 mg IVPUSH BID@0900,1800 [facility]; Protocol Last Admin: 10/28/21 08:15 Dose: 80 mg Documented by: Glucose (Glucose Gel 15 Gm Gel..Gram.) 15 gm PO Q15M PRN; Protocol PRN Reason: per Hypoglycemia Standing Ord. Hydralazine HCl (Hydralazine Hcl 25 Mg Tablet) 25 mg PO BID [facility]; Protocol Last Admin: 10/28/21 08:15 Dose: 25 mg Documented by: Insulin Glargine (Insulin Glargine,Hum.Rec.Anlog 100 Unit/Ml 10 Ml Vial) 20 unit SUBCUT BEDTIME [facility] Last Admin: 10/27/21 22:30 Dose: 20 unit Documented by: Insulin Human Lispro (Insulin Lispro 100 Unit/Ml 3 Ml Vial) 0 unit SUBCUT QIDACHS [facility]; Protocol Last Admin: 10/28/21 08:16 Dose: 4 unit Documented by: Insulin Human Lispro (Insulin Lispro 100 Unit/Ml 3 Ml Vial) 5 unit SUBCUT QIDACHS [facility] Last Admin: 10/28/21 08:17 Dose: 5 unit Documented by: Multivitamins/Vitamin C (Multivitamin Tablet) 1 tab PO DAILY [facility] Last Admin: 10/28/21 08:15 Dose: 1 tab Documented by: Pharmacy Consult (Consult Rx Perform Med Rec) 1 each MISCELLANE ONCE PRN PRN Reason: Consult order Pharmacy Consult (Consult Rx Etoh Phenob Po Dose) 1 each MISCELLANE ONCE PRN; Protocol PRN Reason: Consult order Phenobarbital (Phenobarbital 15 Mg Tablet) 15 mg PO DAILY [facility]; Protocol Stop: 10/29/21 09:01 Last Admin: 10/28/21 08:13 Dose: 15 mg Documented by: Pravastatin Sodium (Pravastatin Sodium 40 Mg Tablet) 40 mg PO BEDTIME [facility] Last Admin: 10/27/21 22:28 Dose: 40 mg Documented by: Sacubitril/Valsartan (Sacubitril/Valsartan 49/51 1 Tab Tablet) 1 tab PO BID [facility]; Protocol Last Admin: 10/28/21 08:14 Dose: 1 tab Documented by: Sodium Chloride (0.9 % Sodium Chloride Flush 3 Ml Syringe) 3 ml IVFLUSH QSHIFT [facility] Last Admin: 10/28/21 08:20 Dose: 3 ml Documented by: Spironolactone (Spironolactone 25 Mg Tablet) 25 mg PO DAILY [facility]; Protocol Last Admin: 10/28/21 08:14 Dose: 25 mg Documented by: Thiamine HCl (Thiamine Hcl 100 Mg Tablet) 100 mg PO DAILY [facility] Last Admin: 10/28/21 08:15 Dose: 100 mg Documented by: Triamcinolone Acetonide (Triamcinolone Acet 0.5 % Oint 15 Gm Tube) 1 appl TOPICAL BID [facility] Last Admin: 10/28/21 08:19 Dose: Not Given Documented by: Time Spent With Patient Time: Total time spent is greater than 50% in coordination of care (as documented) at patient's floor/unit and/or counseling patient: Progress Note: Quality Stroke Does the patient have a stroke diagnosis?: No Procedures Date of Service Date of Service: 10/28/21
[2021-10-28 11:00] VITALS: BP 130/92; PULSE 81; RESP 20; TEMP 36.3; O2SAT 95
[2021-10-28 11:13] LABS: Glucose, Whole Blood 275 mg/dL (60-115)
--- NOTE | 2021-10-28 12:08 | P.PNIM_ITS ---
Subjective Subjective Date of Service: 10/28/21 Interval History: Seen in follow-up for heart failure Interval history Persistent swelling in the leg, no shortness of breath however. BNP level has significantly risen Review of Systems no sob swelling in the legs, no fever no chest pain Physical Exam Vital Signs: Vital Signs: Last Vital Signs Temp 97.3 F 10/28/21 11:00 Pulse 81 10/28/21 11:00 Resp 20 10/28/21 11:00 BP 130/92 H 10/28/21 11:00 Pulse Ox 95 10/28/21 11:00 BMI result Body Mass Index 30.8 Const: Other: General: AO X 3, no acute distress Resp: CTA bilateral CVS: S1,S2,RRR, 2+ pitting both the GI: +BS, NT, no distention Skin: No rash Neuro: motor grossly intact Psych: appropriate affect Objective Data Active Medications Acetaminophen (Acetaminophen 325 Mg Tablet) 650 mg PO Q6H PRN PRN Reason: Pain, Mild (Pain Scale 1-3) Last Admin: 10/27/21 13:21 Dose: 650 mg Documented by: CECILIA Albuterol/Ipratropium (Albuterol/Iprat 2.5/0.5mg 3 Ml Ampul.Neb) 3 ml INHALE RQ4H PRN PRN Reason: Shortness of Breath/Wheezing Last Admin: 10/24/21 15:25 Dose: 3 ml Documented by: ROSY Apixaban (Apixaban 5 Mg Tablet) 5 mg PO BID [facility] Last Admin: 10/28/21 08:13 Dose: 5 mg Documented by: DIOMEDES Carvedilol (Carvedilol 25 Mg Tablet) 25 mg PO BID [facility]; Protocol Last Admin: 10/28/21 08:15 Dose: 25 mg Documented by: DIOMEDES Cyanocobalamin (Cyanocobalamin (Vitamin B-12) 1,000 Mcg Tablet) 1,000 mcg PO DAILY [facility] Last Admin: 10/28/21 08:15 Dose: 1,000 mcg Documented by: DIOMEDES Dextrose (Dextrose 50 % 25 Gm/50 Ml Syringe) 25 gm IVPUSH Q15M PRN; Protocol PRN Reason: per Hypoglycemia Standing Ord. Digoxin (Digoxin 0.125 Mg Tablet) 0.125 mg PO DAILY [facility] Last Admin: 10/28/21 08:16 Dose: 0.125 mg Documented by: DIOMEDES Docusate Sodium (Docusate Sodium 100 Mg Capsule) 100 mg PO DAILY PRN PRN Reason: Constipation Folic Acid (Folic Acid 1 Mg Tablet) 1 mg PO DAILY [facility] Last Admin: 10/28/21 08:15 Dose: 1 mg Documented by: DIOMEDES Furosemide (Furosemide 40 Mg/4 Ml Vial) 80 mg IVPUSH BID@0900,1800 [facility]; Protocol Last Admin: 10/28/21 08:15 Dose: 80 mg Documented by: DIOMEDES Glucose (Glucose Gel 15 Gm Gel..Gram.) 15 gm PO Q15M PRN; Protocol PRN Reason: per Hypoglycemia Standing Ord. Hydralazine HCl (Hydralazine Hcl 25 Mg Tablet) 25 mg PO BID [facility]; Protocol Last Admin: 10/28/21 08:15 Dose: 25 mg Documented by: DIOMEDES Insulin Glargine (Insulin Glargine,Hum.Rec.Anlog 100 Unit/Ml 10 Ml Vial) 20 unit SUBCUT BEDTIME [facility] Last Admin: 10/27/21 22:30 Dose: 20 unit Documented by: MISSY Insulin Human Lispro (Insulin Lispro 100 Unit/Ml 3 Ml Vial) 0 unit SUBCUT QIDACHS [facility]; Protocol Last Admin: 10/28/21 11:45 Dose: 6 unit Documented by: MARILYN Insulin Human Lispro (Insulin Lispro 100 Unit/Ml 3 Ml Vial) 5 unit SUBCUT QIDACHS [facility] Last Admin: 10/28/21 11:45 Dose: 5 unit Documented by: MARILYN Multivitamins/Vitamin C (Multivitamin Tablet) 1 tab PO DAILY [facility] Last Admin: 10/28/21 08:15 Dose: 1 tab Documented by: DIOMEDES Pharmacy Consult (Consult Rx Perform Med Rec) 1 each MISCELLANE ONCE PRN PRN Reason: Consult order Pharmacy Consult (Consult Rx Etoh Phenob Po Dose) 1 each MISCELLANE ONCE PRN; Protocol PRN Reason: Consult order Phenobarbital (Phenobarbital 15 Mg Tablet) 15 mg PO DAILY [facility]; Protocol Stop: 10/29/21 09:01 Last Admin: 10/28/21 08:13 Dose: 15 mg Documented by: DIOMEDES Pravastatin Sodium (Pravastatin Sodium 40 Mg Tablet) 40 mg PO BEDTIME [facility] Last Admin: 10/27/21 22:28 Dose: 40 mg Documented by: NAUMOC Sacubitril/Valsartan (Sacubitril/Valsartan 49/51 1 Tab Tablet) 1 tab PO BID S ; Protocol Last Admin: 10/28/21 08:14 Dose: 1 tab Documented by: DIOMEDES Sodium Chloride (0.9 % Sodium Chloride Flush 3 Ml Syringe) 3 ml IVFLUSH QSHIFT [facility] Last Admin: 10/28/21 08:20 Dose: 3 ml Documented by: DIOMEDES Spironolactone (Spironolactone 25 Mg Tablet) 25 mg PO DAILY [facility]; Protocol Last Admin: 10/28/21 08:14 Dose: 25 mg Documented by: DIOMEDES Thiamine HCl (Thiamine Hcl 100 Mg Tablet) 100 mg PO DAILY [facility] Last Admin: 10/28/21 08:15 Dose: 100 mg Documented by: DIOMEDES Triamcinolone Acetonide (Triamcinolone Acet 0.5 % Oint 15 Gm Tube) 1 appl TOPICAL BID [facility] Last Admin: 10/28/21 08:19 Dose: Not Given Documented by: DIOMEDES Non-Admin Reason: Patient Refused Labs CBC & Chem 7: 10/24/21 10:58 10/28/21 06:32 Labs: Laboratory Results - last 24 hr 10/27/21 10/27/21 10/28/21 15:55 20:07 06:32 Anion Gap 15 Estim Creat Clear Calc 100.4 Estimated GFR > 60 POC Glucose 185 H 200 H Random Glucose 255 H Calcium 9.0 B-Natriuretic Peptide 10/28/21 10/28/21 10/28/21 06:32 07:26 10:51 Anion Gap Estim Creat Clear Calc Estimated GFR POC Glucose 243 H 275 H Random Glucose Calcium B-Natriuretic Peptide 898 H Microbiology Microbiology Results: Microbiology 10/23/21 09:25 Blood Culture - Final Blood - Venous No growth after 5 days. 10/23/21 09:25 Blood Culture - Final Blood - Venous No growth after 5 days. Assessment and Plan (1) Chronic atrial fibrillation: Status: Acute (2) Acute systolic heart failure: Status: Acute (3) Alcohol use disorder, severe, dependence: Status: Acute Plan 70 year old male with history of CHF, afib on eliquis and h/o alcohol dependence, recent admission for CHF who presents with shortness of breath Acute on chronic HFrEF remains decompensated with persistent edema and increaseing BMP Likely secondary to dietary indiscretion, uncontrolled blood pressure, uncontrolled HR. trops flat, elevated BNP ECHO from 06/2001 with EF 20-25% continue IV Lasix to 80 bid, aldactone Monitor I/O pt was planned to follow up with cardiology outpatient to plan biventricular ICD placement but is unclear if he actually follows with Cardiology as outpatient cardiology following Uncontrolled HTN--now better continue Diovan, Aldactone , hydralazine, Coreg and now Entresto Behavior changes/hallucinations history of alcohol abuse in the past seen by psych, reporting hallucinations for the past 2 and half months, MRI showing possible vertebral artery occlusion; discussed with vascular surgery nothing to do, chronic lacunar infarcts Started on multivitamin, thiamine, folate supplementation Will need care team evaluation to determine need for inpatient psych when medically cleared AFIB with RVR, RVR resolved. Continue Coreg, digoxin continue Eliquis for anticoagulation Cardiology following Hypomagnesemia. Repleted and resolved Chronic alcohol use/ risk for alcohol withdrawal does not appear to be in withdrawal pt states he stopped drinking after his admission in June but did have 4-5 shots night prior to admission History of alcohol withdrawal continue phenobarbital protocol to prevent alcohol withdrawal Poorly controlled Diabetes. patient not compliant with diabetic diet Hold Metformin and glipizide Hba1c 13.0 Lantus increased to 20 units at bedtime, mealtime insulin 5 units before meals and at bedtime, continue sliding scale HLD statin DVP ppx--Eliquis HCP - cj Varghese Attending: dr. Jimenez Patient requires ongoing inpatient hospitalization due to continuous need for IV diuretics for heart failure managemet Quality Stroke Does the patient have a stroke diagnosis?: No VTE Prior VTE?: No VTE Risk Level:: Medical - moderate - high VTE Device Contraindication: Treatment Not Indicated VTE Drug Contraindication: N/A - Med Ordered
[2021-10-28 15:21] VITALS: BP 142/76; PULSE 79; RESP 14; TEMP 36.7; O2SAT 94
[2021-10-28 15:35] LABS: Glucose, Whole Blood 186 mg/dL (60-115)
[2021-10-28] MEDS: Acetaminophen 325 MG TABLET 650 MG PO ×2 (17:14→23:55)
[2021-10-28 20:00] VITALS: BP 153/73; PULSE 77; RESP 16; TEMP 36.7; O2SAT 95
[2021-10-28 20:30] LABS: Glucose, Whole Blood 317 mg/dL (60-115)
[2021-10-28] MEDS: Insulin Glargine,Hum.rec.anlog 100 UNIT/ML 10 ML VIAL 20 UNIT SUBCUT (20:59)
[2021-10-28] MEDS: Pravastatin Sodium 40 MG TABLET PO (21:01)
[2021-10-28] MEDS: Triamcinolone Acet 0.5 % Oint 15 GM TUBE 1 APPL TOPICAL (21:09)
[2021-10-28 23:22] VITALS: BP 141/59; PULSE 107; RESP 19; TEMP 36.4; O2SAT 93
[2021-10-29] MEDS: 0.9 % Sodium Chloride Flush 3 ML SYRINGE IVFLUSH ×2 (00:16→09:05)
[2021-10-29 03:55] VITALS: BP 130/72; PULSE 64; RESP 20; TEMP 36.6; O2SAT 95
[2021-10-29 06:50] LABS: Anion Gap 13 (12-20); Blood Urea Nitrogen 19 mg/dL (9-16); Calcium 8.8 mg/dL (8.4-10.2); Carbon Dioxide 36 mmol/L (22-29); Chloride 95 mmol/L (96-108); Creatinine Clr Calc Pharmacy 104.1; Estimated Glomerular Filt Rate > 60; Glucose Random 186 mg/dL (60-115); Potassium 3.4 mmol/L (3.3-5.1); Sodium 141 mmol/L (135-145)
[2021-10-29 06:52] LABS: B Type Natriuretic Peptide 382 pg/mL (<100)
[2021-10-29 07:35] VITALS: BP 146/67; PULSE 73; RESP 20; TEMP 36.2; O2SAT 94
[2021-10-29 07:37] LABS: Glucose, Whole Blood 155 mg/dL (60-115)
[2021-10-29] MEDS: Insulin Lispro 100 UNIT/ML 3 ML VIAL SUBCUT ×4 (08:55→12:51)
[2021-10-29] MEDS: Thiamine HCL 100 MG TABLET PO (08:56)
[2021-10-29] MEDS: Cyanocobalamin (Vitamin B-12) 1,000 MCG TABLET 1000 MCG PO (08:56)
[2021-10-29] MEDS: Folic Acid 1 MG TABLET PO (08:56)
[2021-10-29] MEDS: Furosemide 40 MG/4 ML VIAL 80 MG IVPUSH (08:56)
[2021-10-29] MEDS: Multivitamin TABLET 1 TAB PO (08:56)
[2021-10-29] MEDS: Apixaban 5 MG TABLET PO (08:56)
[2021-10-29] MEDS: hydrALAZINE HCl 25 MG TABLET PO (08:57)
[2021-10-29] MEDS: Digoxin 0.125 MG TABLET PO (08:57)
[2021-10-29] MEDS: carvediloL 25 MG TABLET PO (08:57)
[2021-10-29] MEDS: PHENobarbitaL 15 MG TABLET PO (08:57)
[2021-10-29] MEDS: Spironolactone 25 MG TABLET PO (08:57)
[2021-10-29] MEDS: Sacubitril/Valsartan 49/51 1 TAB TABLET PO (08:57)
[2021-10-29] MEDS: Acetaminophen 325 MG TABLET 650 MG PO (09:04)
[2021-10-29 11:30] VITALS: BP 113/58; PULSE 71; RESP 20; TEMP 36.4; O2SAT 94
[2021-10-29 11:31] LABS: Glucose, Whole Blood 207 mg/dL (60-115)
--- NOTE | 2021-10-29 12:38 | P.PNCA_ITS ---
Subjective Subjective Date of Service: 10/29/21 Principal diagnosis: Congestive heart failure, CMP Interval history: Cardiology follow up for CHF, CMP. Seen at 1100. Today he is sitting up in recliner and reports feeling well. He denies having shortness of breath, PND, orthopnea. He says his legs are always swollen but they are looking better. He denies chest discomfort, palpitations, dizziness. He wants to go home. He says his son will help him with his medications. He agrees to come for cardiology follow-up. Certified test technician used. Review of Systems Review of Systems As above Yes all other systems are reviewed and are negative Physical Exam Vital Signs: Last Vital Signs Temp 97.5 F 10/29/21 11:30 Pulse 71 10/29/21 11:30 Resp 20 10/29/21 11:30 BP 113/58 L 10/29/21 11:30 Pulse Ox 94 10/29/21 11:30 BMI result Body Mass Index 30.8 Const General: cooperative, no acute distress, alert and awake Orientation/consciousness: patient oriented x3 Neck Neck: Yes normal visual inspection and Yes no JVD Resp Effort & Inspection: normal respiratory effort, able to speak in complete sentences and not labored Auscultation: clear to auscultation bilaterally, no crackles, no rales, no rhonchi and no wheezes Cardio Rate: regular rate Rhythm: regular rhythm Heart sounds: S1 normal heart sound present and S2 normal heart sound present GI Inspection: Yes normal to inspection Neuro General: patient oriented x3 Extrem Other: +1 edema each lower leg, right greater than left Objective Labs and Meds Result diagrams: 10/24/21 10:58 10/29/21 05:47 Lab results: Laboratory Results - last 24 hr 10/28/21 10/28/21 10/29/21 15:31 20:21 05:47 Sodium 141 Potassium 3.4 Chloride 95 L Carbon Dioxide 36 H Anion Gap 13 BUN 19 H Creatinine 0.83 Estim Creat Clear Calc 104.1 Estimated GFR > 60 POC Glucose 186 H 317 H Random Glucose 186 H Calcium 8.8 B-Natriuretic Peptide 10/29/21 10/29/21 10/29/21 05:47 07:34 11:28 Sodium Potassium Chloride Carbon Dioxide Anion Gap BUN Creatinine Estim Creat Clear Calc Estimated GFR POC Glucose 155 H 207 H Random Glucose Calcium B-Natriuretic Peptide 382 H Progress Note: A&P Assessment and plan (1) CHF (congestive heart failure): Status: Acute Assessment and Plan: Being treated for acute on chronic systolic HF. Last echo 06/2021 showed EF 20- 25%. He does have LBBB, which is not new. Being diuresed with IV lasix with even fluid balance - unclear accuracy of this. Aldactone added this admit. Lisinopril stopped on admit, changed to valsartan and then was changed to Entresto for optimal heart failure managment. Labs this am show Cr 0.83, K 3.4, BNP today 382, down from 898 yesterday. On exam he has 1+ pitting edema of lower legs, R>L, overall improving. Can stop IV Lasix and changed to Lasix 80 mg p.o. b.i .d.. Continue Carvedilol, Entresto, hydralazine. Patient can be discharged from a cardiology perspective. We will arrange for outpatient cardiology follow-up. Need for strict medication compliance reviewed with him and he states understanding. He says his son will help him with his meds. Signs and symptoms of heart failure, low-salt diet reviewed with him (2) Cardiomyopathy: Status: Acute Assessment and Plan: As above. Outpatient [facility] D will be discussed (3) Chronic atrial fibrillation: Status: Acute Assessment and Plan: Being treated with rate control. On Carvedilol and Digoxin. Tele shows afib/ flutter IVCD, rate 60-70s. He did have one 4.2nd pause with AFib noted. No significant bradycardia present. On Eliquis for anticoagulation. No bleeding issues noted. Continue current tx. (4) LBBB (left bundle branch block): Status: Acute Assessment and Plan: Not new (5) HTN (hypertension): Status: Acute Assessment and Plan: Adequately controlled at present time on current medication management. Fall Risk Details Current Medications: Current Medications Acetaminophen (Acetaminophen 325 Mg Tablet) 650 mg PO Q6H PRN PRN Reason: Pain, Mild (Pain Scale 1-3) Last Admin: 10/29/21 09:04 Dose: 650 mg Documented by: Albuterol/Ipratropium (Albuterol/Iprat 2.5/0.5mg 3 Ml Ampul.Neb) 3 ml INHALE RQ4H PRN PRN Reason: Shortness of Breath/Wheezing Last Admin: 10/24/21 15:25 Dose: 3 ml Documented by: Apixaban (Apixaban 5 Mg Tablet) 5 mg PO BID [facility] Last Admin: 10/29/21 08:56 Dose: 5 mg Documented by: Carvedilol (Carvedilol 25 Mg Tablet) 25 mg PO BID [facility]; Protocol Last Admin: 10/29/21 08:57 Dose: 25 mg Documented by: Cyanocobalamin (Cyanocobalamin (Vitamin B-12) 1,000 Mcg Tablet) 1,000 mcg PO DAILY [facility] Last Admin: 10/29/21 08:56 Dose: 1,000 mcg Documented by: Dextrose (Dextrose 50 % 25 Gm/50 Ml Syringe) 25 gm IVPUSH Q15M PRN; Protocol PRN Reason: per Hypoglycemia Standing Ord. Digoxin (Digoxin 0.125 Mg Tablet) 0.125 mg PO DAILY [facility] Last Admin: 10/29/21 08:57 Dose: 0.125 mg Documented by: Docusate Sodium (Docusate Sodium 100 Mg Capsule) 100 mg PO DAILY PRN PRN Reason: Constipation Folic Acid (Folic Acid 1 Mg Tablet) 1 mg PO DAILY [facility] Last Admin: 10/29/21 08:56 Dose: 1 mg Documented by: Furosemide (Furosemide 40 Mg/4 Ml Vial) 80 mg IVPUSH BID@0900,1800 [facility]; Protocol Last Admin: 10/29/21 08:56 Dose: 80 mg Documented by: Glucose (Glucose Gel 15 Gm Gel..Gram.) 15 gm PO Q15M PRN; Protocol PRN Reason: per Hypoglycemia Standing Ord. Hydralazine HCl (Hydralazine Hcl 25 Mg Tablet) 25 mg PO BID [facility]; Protocol Last Admin: 10/29/21 08:57 Dose: 25 mg Documented by: Insulin Glargine (Insulin Glargine,Hum.Rec.Anlog 100 Unit/Ml 10 Ml Vial) 20 unit SUBCUT BEDTIME [facility] Last Admin: 10/28/21 20:59 Dose: 20 unit Documented by: Insulin Human Lispro (Insulin Lispro 100 Unit/Ml 3 Ml Vial) 0 unit SUBCUT QIDACHS [facility]; Protocol Last Admin: 10/29/21 08:56 Dose: 2 unit Documented by: Insulin Human Lispro (Insulin Lispro 100 Unit/Ml 3 Ml Vial) 5 unit SUBCUT QIDACHS [facility] Last Admin: 10/29/21 08:55 Dose: 5 unit Documented by: Multivitamins/Vitamin C (Multivitamin Tablet) 1 tab PO DAILY [facility] Last Admin: 10/29/21 08:56 Dose: 1 tab Documented by: Pharmacy Consult (Consult Rx Perform Med Rec) 1 each MISCELLANE ONCE PRN PRN Reason: Consult order Pharmacy Consult (Consult Rx Etoh Phenob Po Dose) 1 each MISCELLANE ONCE PRN; Protocol PRN Reason: Consult order Pravastatin Sodium (Pravastatin Sodium 40 Mg Tablet) 40 mg PO BEDTIME [facility] Last Admin: 10/28/21 21:01 Dose: 40 mg Documented by: Sacubitril/Valsartan (Sacubitril/Valsartan 49/51 1 Tab Tablet) 1 tab PO BID [facility]; Protocol Last Admin: 10/29/21 08:57 Dose: 1 tab Documented by: Sodium Chloride (0.9 % Sodium Chloride Flush 3 Ml Syringe) 3 ml IVFLUSH QSHIFT [facility] Last Admin: 10/29/21 09:05 Dose: 3 ml Documented by: Spironolactone (Spironolactone 25 Mg Tablet) 25 mg PO DAILY [facility]; Protocol Last Admin: 10/29/21 08:57 Dose: 25 mg Documented by: Thiamine HCl (Thiamine Hcl 100 Mg Tablet) 100 mg PO DAILY [facility] Last Admin: 10/29/21 08:56 Dose: 100 mg Documented by: Triamcinolone Acetonide (Triamcinolone Acet 0.5 % Oint 15 Gm Tube) 1 appl TOPICAL BID [facility] Last Admin: 10/29/21 11:37 Dose: Not Given Documented by: Time Spent With Patient Time: Total time spent is greater than 50% in coordination of care (as documented) at patient's floor/unit and/or counseling patient: 24 Progress Note: Quality Stroke Does the patient have a stroke diagnosis?: No Procedures Date of Service Date of Service: 10/29/21
--- NOTE | 2021-10-29 13:15 | P.DS_ITS ---
DS: Providers Provider Date of Service: 10/29/21 Date of admission: 10/23/21 15:20 Primary care physician: Matthias Marx MD Consults: 10/24/21 08:00 Consult to Cardiology Routine Consulting Provider: Xavier Menon Reason for consultation: chf, afib, htn Has provider been notified: No 10/24/21 13:14 Consult to Psychiatry Routine Consulting Provider: Psych Covering Reason for consultation: hallucinations, behavior changes; family worried; competency eval Has provider been notified: No DS: Diagnosis Discharge Diagnosis (1) CHF (congestive heart failure): (2) Cardiomyopathy: (3) Chronic atrial fibrillation: (4) LBBB (left bundle branch block): (5) HTN (hypertension): DS: Summary Hospital Course Hospital Course: Attending physician on admission: Nirmal Jimenez Chief Complaint: shortness of breath This is a 71-year-old male with history of atrial fibrillation, heart failure who presents emergency department with shortness of breath.? 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 Despite using chainsaw mechanic the patient is somewhat of a vague historian. He states he began feeling short of breath last evening.? He ?sometimes? coughs but not persistently.? He denies any associated fever chills.? He denies any associated chest pain or palpitations.? In the emergency department Chest x-ray showed mild prominence of pulmonary vasculature most consistent with mild CHF.? BNP was 605. Patient received a breathing treatment as well as a dose of IV Lasix and his breathing improved a little. He states that he has been taking his medication as prescribed.? He had not been drinking alcohol but last night he did have 4 or 5 shots of hard alcohol.? Alcohol level in the emergency department was less than 10. His Heart rate was noted to be somewhat elevated, patient states that he did not take his morning medication because he came directly to the emergency department. Hospital course: Acute on chronic HFrEF with know EF of 20%. He was admitted and treated with IV Lasix that has been adjusted to 80 mg po bid now, initially treated with IV Lasix, Lisinopril was discontinued and was started on Entresto, digoxin and Aldactone also added and overall feeling better with siginificant reduction in leg edema. Advise limit salt and water intake to 1000 cc a day. 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 To Continue Coreg, digoxin added continue Eliquis for anticoagulation Hypomagnesemia. Repleted and resolved Chronic alcohol use/ risk for alcohol withdrawal does not appear to be in withdrawal pt states he stopped drinking after his admission in June but did have 4-5 shots night prior to admission History of alcohol withdrawal. Treated with Phenobarbital Poorly controlled Diabetes. patient not compliant with diabetic diet--Was given Insulin in hospital, cannot do insulin at home, will resume oral meds and to follow up with PCP BRIAN statin Time Spent with Patient Time attestation: Total time spent providing and/or coordinating discharge services: Discharge coordination time: Greater than 30 minutes Quality: Safe Use of Opioids Does Pt have an Active Cancer Diagnosis on the Problem List?: No Quality: Stroke Does the patient have a stroke diagnosis?: No Physical Exam Vital Signs: Vital Signs: Last Vital Signs Temp 97.5 F 10/29/21 11:30 Pulse 71 10/29/21 11:30 Resp 20 10/29/21 11:30 BP 113/58 L 10/29/21 11:30 Pulse Ox 94 10/29/21 11:30 BMI result Body Mass Index 30.8 DS: Data Data Completed and Pending Completed studies during hospitalization [Text1]: Procedures Detoxification Services for Substance Abuse Treatment (06/27/21) Labs on day of discharge: Laboratory Results - last 24 hr 10/28/21 10/28/21 10/29/21 15:31 20:21 05:47 Sodium 141 Potassium 3.4 Chloride 95 L Carbon Dioxide 36 H Anion Gap 13 BUN 19 H Creatinine 0.83 Estim Creat Clear Calc 104.1 Estimated GFR > 60 POC Glucose 186 H 317 H Random Glucose 186 H Calcium 8.8 B-Natriuretic Peptide 10/29/21 10/29/21 10/29/21 05:47 07:34 11:28 Sodium Potassium Chloride Carbon Dioxide Anion Gap BUN Creatinine Estim Creat Clear Calc Estimated GFR POC Glucose 155 H 207 H Random Glucose Calcium B-Natriuretic Peptide 382 H Discharge Plan Discharge Anticipated Discharge Date/Time: 10/29/21 13:02 Patient Disposition: Home Health Service Discharge Diagnosis: Acute exacerbation of heart failure Referrals: thomas jaramillo [Other] - 1 Week Name,MD Matthias [Primary Care Provider] - 11/05/21 2:45 pm (You have a follow up appointment on November 05 at 2:45 pm.) Discharge Medications: New hydralazine 25 mg Tablet 25 mg PO BID Qty: 60 0RF Protocol: Hold for SBP< HOLD for SBP < : 90 digoxin 125 mcg (0.125 mg) Tablet 0.125 mg PO DAILY Qty: 30 0RF Entresto 49-51 mg Tablet 1 tab PO BID Qty: 60 0RF Protocol: Hold for SBP< HOLD for SBP < : 90 spironolactone 25 mg Tablet 25 mg PO DAILY Qty: 30 0RF Protocol: Hold for SBP< HOLD for SBP < : 90 furosemide [Lasix] 80 mg tablet 80 mg PO BID Qty: 60 0RF Continued cyanocobalamin (vitamin B-12) 1,000 mcg tablet 1 tab PO DAILY 0RF betamethasone dipropionate 0.05 % ointment 1 appl topical BID 0RF Protocol: Apply to: Apply to: AFFECTED AREAS Eliquis 5 mg Tablet 5 mg PO BID Qty: 60 0RF Discontinued hydralazine 10 mg tablet 1 tab PO BID 0RF lisinopril 40 mg tablet 1 tab PO DAILY 0RF furosemide [Lasix] 40 mg tablet 40 mg PO DAILY Qty: 30 0RF No Action carvedilol 25 mg tablet 25 mg PO BID 0RF glipizide 10 mg tablet 10 mg PO BID 0RF metformin 1,000 mg tablet 1,000 mg PO BID 0RF pravastatin 40 mg tablet 40 mg PO BEDTIME 0RF folic acid 1 mg tablet 1 mg PO QAM 0RF thiamine HCl (vitamin B1) 100 mg tablet 100 mg PO QAM 0RF multivitamin Tablet 1 tab PO QPM 0RF acamprosate 333 mg tablet,delayed release (DR/EC) 666 mg PO TID 0RF Discharge Orders: Discharge Order (Routine); Ordered 10/29/21 Ordered By: Gabriel Farrell Diet: advance to usual diet Activity on Discharge: As tolerated Stand Alone Forms: Patient Portal Discharge page Print Language: Jordanian Care Plan Goals: Full control of heart failure Health Concerns: Chronic heart failure Plan of Treatment: Take all your medications as recommended and follow up with your doctor in a week Assessment: ss above Discharge Date/Time: 10/29/21 16:13
--- NOTE | 2021-10-29 13:23 | W.MHC.F2F ---
Service Date Service Date: 10/29/21 Encounter Date of encounter: 10/29/21 Reasons for Services Signs and symptoms assessed: Shortness breath due to heart failure Reason for fci: medication management and teach disease management Homebound: Leaving the home is medically contraindicated at this time without the asist of a device and/or another person due th the listed conditions above and below. Reason homebound: shortness of breath with minimal effort Certification: Based on the above findings, I certify that this patient is confined to the home and needs intermittent fci care, physical therapy and/or speech therapy, or continues to need occupational therapy. The patient is under my care, and I have initiated the establishment of the plan of care. The patient will be followed by a physician who will periodically review the plan of care.
--- NOTE | 2021-10-29 13:35 | MHC.CM.PN ---
pt dcd home with resumption altranis vna and stranner servceis
--- NOTE | 2021-10-29 13:47 | MHC.CM.PN ---
eliza/cca notified of pts dc
== END 2021-10-29 16:13 | disposition home health service (06) | DRG 291 ==
LOC: HO.ED 13:49 → HO.EDOVER 15:21 → HO.IMC 19:18
PROVIDERS: Nurse Practitioner Acute Care; Nurse Practitioner Family; Physician Assistant Medical; Admitting Provider Physician Assistant Medical; Emergency Provider Internal Medicine; PCP Internal Medicine Geriatric Medicine; Visit Provider Internal Medicine
DX: I11.0 Hypertensive heart disease with heart failure (principal); I50.23 Acute on chronic systolic (congestive) heart failure; I48.20 Chronic atrial fibrillation, unspecified; E78.5 Hyperlipidemia, unspecified; E83.42 Hypomagnesemia; F32.A Depression, unspecified; E11.65 Type 2 diabetes mellitus with hyperglycemia; I42.9 Cardiomyopathy, unspecified; I65.02 Occlusion and stenosis of left vertebral artery; F10.10 Alcohol abuse, uncomplicated; I44.7 Left bundle-branch block, unspecified; Z20.822 Contact with and (suspected) exposure to COVID-19; F04 Amnestic disorder due to known physiological condition; Z91.11 Patient's noncompliance with dietary regimen; Z87.891 Personal history of nicotine dependence; Z79.01 Long term (current) use of anticoagulants; Z79.84 Long term (current) use of oral hypoglycemic drugs; Z79.899 Other long term (current) drug therapy
CPT/HCPCS: 36415; 70496; 70498; 70544; 70547; 70551; 71046; 80048; 80053; 80307; 82077; 82607; 82746; 82803; 82947; 83036; 83605; 83690; 83735; 83880; 84443; 84484; 85025; 85027; 85610; 85730; 87040; 87502; 87635; 93005; 94640; 96374; 99285; A9585; J1160; J1940; J3475; Q9967

== ENCOUNTER → 2021-11-18 12:59 | Outpatient (BNVA) | payer OTHER, SELFPAY | PROVIDERS: PCP Internal Medicine Geriatric Medicine; Referring Provider Internal Medicine Geriatric Medicine; Visit Provider Internal Medicine Cardiovascular Disease | DX: I50.22 Chronic systolic (congestive) heart failure (principal); I48.91 Unspecified atrial fibrillation | CPT/HCPCS: 99212 ==

== ENCOUNTER 2021-11-24 11:10 | Emergency (ER) | payer OTHER, SELFPAY ==
[2021-11-24 12:00] VITALS: BP 186/96; PULSE 81; RESP 18; TEMP 35.8; O2SAT 96; BMI 31.2
== END 2021-11-24 12:42 | disposition left against medical advice (07) ==
PROVIDERS: Emergency Provider Emergency Medicine; PCP Internal Medicine Geriatric Medicine
DX: R42 Dizziness and giddiness (principal)
CPT/HCPCS: 99281; 99282

== ENCOUNTER 2021-12-16 07:40 | Inpatient (IN) | payer OTHER, SELFPAY ==
[2021-12-16] VITALS (7 sets, daily range): BP systolic 104–167; BP diastolic 64–98; PULSE 90–130; RESP 16–24; TEMP 36.6; O2SAT 92–99; BMI 33.9
--- NOTE | 2021-12-16 | ECG_ITS ---
Test Reason : tachycardia Blood Pressure : / mmHG Vent. Rate : 113 BPM Atrial Rate : 113 BPM P-R Int : 132 ms QRS Dur : 186 ms QT Int : 362 ms P-R-T Axes : 046 -64 136 degrees QTc Int : 496 ms Possible Rhythm shows atrial flutter with variable block Left axis deviation Left bundle branch block Abnormal ECG When compared with ECG of 23-OCT-2021 07:58, Rhythm shows atrial flutter with variable block has replaced Atrial fibrillation Referred By: Marina Farrell Electronically Signed By:ISAEL JOYCE MD
--- NOTE | ~2021-12-16 | XR_ITS ---
EXAMINATION: XR CHEST CLINICAL INFORMATION: Dyspnea. Pneumonia. COMPARISON: None TECHNIQUE: Frontal view of the chest was obtained. FINDINGS: Abnormal. Patchy interstitial infiltrate right midlung and right lower lung. Left lung is grossly clear. At size borderline with normal caliber pulmonary vessels. What is the patient's Covid status? XR/XR chest 1V IMPRESSION: Right mid and lower lung infiltrate suspicious for pneumonia. CT may be useful for further evaluation.
--- NOTE | ~2021-12-16 | CT_ITS ---
EXAMINATION: CT CHEST WITHOUT CONTRAST CLINICAL INFORMATION: Dyspnea and shortness of breath COMPARISON: Chest radiograph same date TECHNIQUE: Multidetector volumetric CT imaging of the chest was done. Axial MIP volume rendering provided. Sagittal and coronal reformatted images were obtained. This CT examination was performed using dose optimization techniques as appropriate, variously including the following: *Automated exposure control *Adjustment of mA and/or kV according to patient size (this includes techniques or standardized protocols for targeted exams where dose is matched to indication/reason for exam; i.e. extremities or head) *Use of iterative reconstruction technique DLP: 368 mGy-cm FINDINGS: DIRECTOR OF CURRICULUM: Unremarkable LUNGS: Mild patchy dependent densities are seen possibly related to edema rather than a pneumonic process. I do not see evidence of consolidation suggestive of Covid pneumonia. MEDIASTINUM: There is moderate enlargement heart. Extensive coronary artery calcifications are noted. No significant adenopathy or pericardial effusion. PLEURA: Small right pleural effusion. AXILLA: No lymphadenopathy. UPPER ABDOMEN: Unremarkable. OSSEOUS STRUCTURES: Kyphosis of the thoracic spine with multilevel degenerative change CT/CT chest wo con IMPRESSION: Query mild congestive change with edema at the lung bases. Fleischner guidelines were followed.
[2021-12-16 08:07] LABS: Glucose, Whole Blood 513 mg/dL (60-115)
--- NOTE | 2021-12-16 08:10 | ED.SOB ---
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 At this time he c/o dyspnea. MD elicited complaint: shortness of breath Pertinent past history: congestive heart failure and diabetes Onset (ago): day(s) (2) Context: medication noncompliance Timing: progressively worsening Severity: moderate Exacerbating factors: lying flat and exertion Relieving factors: rest and upright position Known history of: congestive heart failure Associated symptoms: other (LE edema, med noncompliance, dyspnea) Treatment prior to arrival: none Related Data Home Medications Medication Instructions Recorded Confirmed betamethasone dipropionate 0.05 % 1 appl TOPICAL BID 06/27/21 12/16/21 topical ointment cyanocobalamin (vitamin B-12) 1 tab PO DAILY 06/27/21 12/16/21 1,000 mcg tablet acamprosate 333 mg tablet,delayed 666 mg PO TID 11/18/21 12/16/21 release carvedilol 25 mg tablet 25 mg PO BID 11/18/21 12/16/21 folic acid 1 mg tablet 1 mg PO QAM 11/18/21 12/16/21 glipizide 10 mg tablet 10 mg PO BID 11/18/21 12/16/21 metformin 1,000 mg tablet 1,000 mg PO BID 11/18/21 12/16/21 pravastatin 40 mg tablet 40 mg PO BEDTIME 11/18/21 12/16/21 thiamine HCl (vitamin B1) 100 mg 100 mg PO QAM 11/18/21 12/16/21 tablet acetaminophen 500 mg tablet 1 tab PO Q8H PRN 12/16/21 12/16/21 amlodipine 10 mg tablet 1 tab PO QAM 12/16/21 12/16/21 aspirin 81 mg tablet,delayed 1 tab PO QPM 12/16/21 12/16/21 release chlorthalidone 25 mg tablet 1 tab PO QAM 12/16/21 12/16/21 multivitamin 1 tab PO QPM 12/16/21 12/16/21 Previous Rx's Medication Instructions Recorded apixaban 5 mg tablet (Eliquis) 5 mg PO BID #60 tab 07/01/21 digoxin 125 mcg (0.125 mg) tablet 0.125 mg PO DAILY #30 tab 10/29/21 furosemide 80 mg tablet (Lasix) 80 mg PO BID #60 tab 10/29/21 hydralazine 25 mg tablet 25 mg PO BID #60 tab 10/29/21 sacubitril 49 mg-valsartan 51 mg 1 tab PO BID #60 tab 10/29/21 tablet (Entresto) spironolactone 25 mg tablet 25 mg PO DAILY #30 tab 10/29/21 Allergies Allergy/AdvReac Type Severity Reaction Status Date / Time No Known Allergies Allergy Verified 09/22/21 12:18 Review of Systems Review of Systems: Constitutional : No Fever, No Chills ENT/Mouth : No sore throat, No Rhinorrhea, No Swallowing Difficulty Eyes: No Eye Pain, No Swelling, No Redness Cardiovascular : No Chest Pain, positive SOB, No Orthopnea, positive Edema Respiratory : No Cough, No Sputum, No Wheezing, positive dyspnea Gastrointestinal : No Nausea, No Vomiting, No Diarrhea, No abdominal Pain, No Hematochezia, No Melena Genitourinary : No Dysuria, No Urinary Frequency, No Hematuria Musculoskeletal : No joint pain, No Myalgias Skin : No Skin Lesions, No rash Neuro : No Weakness, No Numbness, No Dizziness, No Headache Psych : No Anxiety/Panic, No Depression Heme/Lymph: No Bruising, No Lymphadenopathy Endocrine : No Polyuria, No Polydipsia All other systems reviewed and are negative [facility] Past Medical History Attestation statement: The following information was validated with the patient. Source: old records reviewed Medical History Alcohol use disorder, severe, dependence Atrial fibrillation with rapid ventricular response Atrial fibrillation with slow ventricular response Cardiomyopathy CHF (congestive heart failure) Chronic atrial fibrillation Chronic systolic CHF (congestive heart failure) Depressive disorder Diabetes HTN (hypertension) LBBB (left bundle branch block) Family History Family History Mother HTN (hypertension) Father CAD (coronary artery disease) HTN (hypertension) Social History Social History Household Members: None Housing: Apartment Do you presently have visiting nurse or other home services: Yes Alcohol intake: current Alcohol intake frequency: former alcohol drinker Alcohol type: hard liquor Patient Tobacco Use Status: Former Tobacco user Smoked in Last 30 Days: No Use of substances other than those prescribed or required for medical reasons: No Advance Directives: Yes Advance Directives on File: Yes Advance Directives Date on File: 06/27/21 service: No Current occupational status: retired Physical Exam Vital Signs: Vital Signs: Last Vital Signs Temp 97.8 F 12/16/21 07:49 Pulse 103 H 12/16/21 09:09 Resp 24 H 12/16/21 09:09 BP 160/95 H 12/16/21 09:09 Pulse Ox 94 12/16/21 09:09 BMI result Body Mass Index 33.9 Appearance: Alert. Oriented X3. No acute distress. Eyes: Pupils equal, round and reactive to light. ENT: Pharynx normal. Neck: Normal inspection. Neck supple. + JVD noted CVS: tachycardic and irregular heart rate and rhythm. Pulses normal. Respiratory: No respiratory distress. Breath sounds rales at the bases Abdomen: Soft and nontender. Skin: Skin warm and dry. Normal skin color. Normal skin turgor. Extremities: 1+ pittng lower ext edema No calf ttp Neuro: Oriented X 3. No motor deficit. No sensory deficit. Course Course Course Narrative: no DKA BNP markedly high repeat IV lasix repeat sugar improved, diuresing, repeat trop flat plan to admit for further diuresis and med management MDM - SOB/Dyspnea MDM Narrative Medical decision making narrative: 71 yo male with hx of CHF EF 20%, afib on eliquis, HTN, ETOH abuse last drink sometime last week per him, DM, prior CVA, DM here with c/o off of his medications since at least Wednesday at this time he is dyspneic with signs of volume overload in afib with RVR normally on lasix, digoxin, eliquis and carvedilol. Will give IV lasix, IV lopressor, labs, CXR, EKG ordered. His BS is also high due to not taking his medications - IV insulin ordered. Suspect patient will be admitted. Medical issues and complaints likely due to ETOH use and non-compliance with his medications for the last 5 days. Lab Data Result diagrams: 12/16/21 08:04 12/16/21 08:04 Labs: Lab Results 12/16/21 12/16/21 12/16/21 Range/Units 08:04 08:04 08:04 WBC 12.1 H (4.8-10.8) X10*3/uL RBC 5.03 (4.60-5.80) X10*6/uL Hgb 13.7 L (14.0-18.0) g/dl Hct 41.8 L (42.0-52.0) % MCV 83.1 (80.0-98.0) fL MCH 27.2 (27.0-33.0) pg MCHC 32.8 (31.0-36.0) g/dl RDW 16.0 (11.0-16.0) % Plt Count 334 (160-400) X10*3/uL MPV 11.1 (9.4-12.4) fL Immature Gran % (Auto) 0.9 H (0.0-0.4) % Neut % (Auto) 76.8 H (45-73) % Lymph % (Auto) 15.4 L (20-40) % [place] % (Auto) 6.6 (2-11) % Eos % (Auto) 0.1 (0-4) % Baso % (Auto) 0.2 (0-2) % Lymph # (Auto) 1.9 (1.2-4.9) X10*3/uL [place] # (Auto) 0.8 (0.1-1.2) X10*3/uL Eos # (Auto) 0.0 (0.0-0.4) X10*3/uL Baso # (Auto) 0.0 (0.0-0.2) X10*3/uL Abs Immat Gran (auto) 0.11 H (0.00-0.03) X10*3/uL Absolute Neuts (auto) 9.3 H (2.0-8.3) x10*3/uL Absolute Nucleated RBC 0.000 (0.0-0.012) X10*3/uL Nucleated RBC % (auto) 0.0 (0.0-0.2) /100WBC PT (9.9-13.0) SEC INR (0.9-1.1) APTT (24.1-38.0) SEC Sodium 134 L (135-145) mmol/L Potassium 4.0 (3.3-5.1) mmol/L Chloride 95 L (96-108) mmol/L Carbon Dioxide 24 (22-29) mmol/L Anion Gap 19 (12-20) BUN 19 H (9-16) mg/dL Creatinine 1.46 H (0.5-1.4) mg/dL Estim Creat Clear Calc 58.5 Estimated GFR 47 POC Glucose (60-115) mg/dL Random Glucose 602 H* (60-115) mg/dL Calcium 9.2 (8.4-10.2) mg/dL Magnesium 1.6 (1.6-2.6) mg/dL Total Bilirubin 1.7 H (0.0-1.0) mg/dL Direct Bilirubin 0.7 H (0.0-0.5) mg/dL AST 13 D (5-37) U/L ALT 14 (0-40) U/L Alkaline Phosphatase 97 (39-117) U/L Troponin I High Sens 52.6 H D (<3.5-35.0) ng/L B-Natriuretic Peptide 2807 H (<100) pg/mL Total Protein 6.9 (6.5-8.0) g/dL Albumin 3.8 (3.5-5.0) g/dL Lipase 13 (8-78) U/L Urine Color Urine Appearance Urine pH (5.0-8.0) Ur Specific [place] (1.005-1.025) Urine Protein (NEG-TRACE) MG/DL Urine Glucose (UA) (NEG) MG/DL Urine Ketones (NEG) MG/DL Urine Blood (NEG) Urine Nitrite (NEG) Ur Leukocyte Esterase (NEG) Urine RBC (0) /HPF Urine WBC (0-4) /HPF Ur Squamous Epith Cells /LPF Urine Bacteria /LPF Digoxin (0.8-2.0) ng/mL Urine Opiates Screen (Not Detect) Urine Fentanyl Screen (Not Detect) Ur Barbiturates Screen (Not Detect) Ur Phencyclidine Scrn (Not Detect) Ur Amphetamines Screen (Not Detect) U Benzodiazepines Scrn (Not Detect) Urine Cocaine Screen (Not Detect) U Marijuana (THC) Screen (Not Detect) Ethyl Alcohol mg/dL COVID-19 (BRAVO) (Negative) COVID-19 Clin Com 12/16/21 12/16/21 12/16/21 Range/Units 08:04 08:04 08:04 WBC (4.8-10.8) X10*3/uL RBC (4.60-5.80) X10*6/uL Hgb (14.0-18.0) g/dl Hct (42.0-52.0) % MCV (80.0-98.0) fL MCH (27.0-33.0) pg MCHC (31.0-36.0) g/dl RDW (11.0-16.0) % Plt Count (160-400) X10*3/uL MPV (9.4-12.4) fL Immature Gran % (Auto) (0.0-0.4) % Neut % (Auto) (45-73) % Lymph % (Auto) (20-40) % [place] % (Auto) (2-11) % Eos % (Auto) (0-4) % Baso % (Auto) (0-2) % Lymph # (Auto) (1.2-4.9) X10*3/uL [place] # (Auto) (0.1-1.2) X10*3/uL Eos # (Auto) (0.0-0.4) X10*3/uL Baso # (Auto) (0.0-0.2) X10*3/uL Abs Immat Gran (auto) (0.00-0.03) X10*3/uL Absolute Neuts (auto) (2.0-8.3) x10*3/uL Absolute Nucleated RBC (0.0-0.012) X10*3/uL Nucleated RBC % (auto) (0.0-0.2) /100WBC PT 13.8 H (9.9-13.0) SEC INR 1.2 H (0.9-1.1) APTT 33.4 (24.1-38.0) SEC Sodium (135-145) mmol/L Potassium (3.3-5.1) mmol/L Chloride (96-108) mmol/L Carbon Dioxide (22-29) mmol/L Anion Gap (12-20) BUN (9-16) mg/dL Creatinine (0.5-1.4) mg/dL Estim Creat Clear Calc Estimated GFR POC Glucose 513 H* (60-115) mg/dL Random Glucose (60-115) mg/dL Calcium (8.4-10.2) mg/dL Magnesium (1.6-2.6) mg/dL Total Bilirubin (0.0-1.0) mg/dL Direct Bilirubin (0.0-0.5) mg/dL AST (5-37) U/L ALT (0-40) U/L Alkaline Phosphatase (39-117) U/L Troponin I High Sens (<3.5-35.0) ng/L B-Natriuretic Peptide (<100) pg/mL Total Protein (6.5-8.0) g/dL Albumin (3.5-5.0) g/dL Lipase (8-78) U/L Urine Color Urine Appearance Urine pH (5.0-8.0) Ur Specific [place] (1.005-1.025) Urine Protein (NEG-TRACE) MG/DL Urine Glucose (UA) (NEG) MG/DL Urine Ketones (NEG) MG/DL Urine Blood (NEG) Urine Nitrite (NEG) Ur Leukocyte Esterase (NEG) Urine RBC (0) /HPF Urine WBC (0-4) /HPF Ur Squamous Epith Cells /LPF Urine Bacteria /LPF Digoxin (0.8-2.0) ng/mL Urine Opiates Screen (Not Detect) Urine Fentanyl Screen (Not Detect) Ur Barbiturates Screen (Not Detect) Ur Phencyclidine Scrn (Not Detect) Ur Amphetamines Screen (Not Detect) U Benzodiazepines Scrn (Not Detect) Urine Cocaine Screen (Not Detect) U Marijuana (THC) Screen (Not Detect) Ethyl Alcohol < 10 mg/dL COVID-19 (BRAVO) (Negative) COVID-19 Clin Com 12/16/21 12/16/21 12/16/21 Range/Units 08:09 08:09 09:13 WBC (4.8-10.8) X10*3/uL RBC (4.60-5.80) X10*6/uL Hgb (14.0-18.0) g/dl Hct (42.0-52.0) % MCV (80.0-98.0) fL MCH (27.0-33.0) pg MCHC (31.0-36.0) g/dl RDW (11.0-16.0) % Plt Count (160-400) X10*3/uL MPV (9.4-12.4) fL Immature Gran % (Auto) (0.0-0.4) % Neut % (Auto) (45-73) % Lymph % (Auto) (20-40) % [place] % (Auto) (2-11) % Eos % (Auto) (0-4) % Baso % (Auto) (0-2) % Lymph # (Auto) (1.2-4.9) X10*3/uL [place] # (Auto) (0.1-1.2) X10*3/uL Eos # (Auto) (0.0-0.4) X10*3/uL Baso # (Auto) (0.0-0.2) X10*3/uL Abs Immat Gran (auto) (0.00-0.03) X10*3/uL Absolute Neuts (auto) (2.0-8.3) x10*3/uL Absolute Nucleated RBC (0.0-0.012) X10*3/uL Nucleated RBC % (auto) (0.0-0.2) /100WBC PT (9.9-13.0) SEC INR (0.9-1.1) APTT (24.1-38.0) SEC Sodium (135-145) mmol/L Potassium (3.3-5.1) mmol/L Chloride (96-108) mmol/L Carbon Dioxide (22-29) mmol/L Anion Gap (12-20) BUN (9-16) mg/dL Creatinine (0.5-1.4) mg/dL Estim Creat Clear Calc Estimated GFR POC Glucose (60-115) mg/dL Random Glucose (60-115) mg/dL Calcium (8.4-10.2) mg/dL Magnesium (1.6-2.6) mg/dL Total Bilirubin (0.0-1.0) mg/dL Direct Bilirubin (0.0-0.5) mg/dL AST (5-37) U/L ALT (0-40) U/L Alkaline Phosphatase (39-117) U/L Troponin I High Sens (<3.5-35.0) ng/L B-Natriuretic Peptide (<100) pg/mL Total Protein (6.5-8.0) g/dL Albumin (3.5-5.0) g/dL Lipase (8-78) U/L Urine Color YELLOW Urine Appearance CLEAR Urine pH 5.5 (5.0-8.0) Ur Specific [place] 1.010 (1.005-1.025) Urine Protein 1+ H (NEG-TRACE) MG/DL Urine Glucose (UA) >=1000 H (NEG) MG/DL Urine Ketones NEG (NEG) MG/DL Urine Blood TRACE (NEG) Urine Nitrite NEG (NEG) Ur Leukocyte Esterase NEG (NEG) Urine RBC 1-4 (0) /HPF Urine WBC 0 (0-4) /HPF Ur Squamous Epith Cells NONE /LPF Urine Bacteria TRACE /LPF Digoxin < 0.3 L (0.8-2.0) ng/mL Urine Opiates Screen (Not Detect) Urine Fentanyl Screen (Not Detect) Ur Barbiturates Screen (Not Detect) Ur Phencyclidine Scrn (Not Detect) Ur Amphetamines Screen (Not Detect) U Benzodiazepines Scrn (Not Detect) Urine Cocaine Screen (Not Detect) U Marijuana (THC) Screen (Not Detect) Ethyl Alcohol mg/dL COVID-19 (BRAVO) Negative (Negative) COVID-19 Clin Com See Note 12/16/21 12/16/21 12/16/21 Range/Units 09:13 09:45 10:30 WBC (4.8-10.8) X10*3/uL RBC (4.60-5.80) X10*6/uL Hgb (14.0-18.0) g/dl Hct (42.0-52.0) % MCV (80.0-98.0) fL MCH (27.0-33.0) pg MCHC (31.0-36.0) g/dl RDW (11.0-16.0) % Plt Count (160-400) X10*3/uL MPV (9.4-12.4) fL Immature Gran % (Auto) (0.0-0.4) % Neut % (Auto) (45-73) % Lymph % (Auto) (20-40) % [place] % (Auto) (2-11) % Eos % (Auto) (0-4) % Baso % (Auto) (0-2) % Lymph # (Auto) (1.2-4.9) X10*3/uL [place] # (Auto) (0.1-1.2) X10*3/uL Eos # (Auto) (0.0-0.4) X10*3/uL Baso # (Auto) (0.0-0.2) X10*3/uL Abs Immat Gran (auto) (0.00-0.03) X10*3/uL Absolute Neuts (auto) (2.0-8.3) x10*3/uL Absolute Nucleated RBC (0.0-0.012) X10*3/uL Nucleated RBC % (auto) (0.0-0.2) /100WBC PT (9.9-13.0) SEC INR (0.9-1.1) APTT (24.1-38.0) SEC Sodium (135-145) mmol/L Potassium (3.3-5.1) mmol/L Chloride (96-108) mmol/L Carbon Dioxide (22-29) mmol/L Anion Gap (12-20) BUN (9-16) mg/dL Creatinine (0.5-1.4) mg/dL Estim Creat Clear Calc Estimated GFR POC Glucose 431 H* (60-115) mg/dL Random Glucose (60-115) mg/dL Calcium (8.4-10.2) mg/dL Magnesium (1.6-2.6) mg/dL Total Bilirubin (0.0-1.0) mg/dL Direct Bilirubin (0.0-0.5) mg/dL AST (5-37) U/L ALT (0-40) U/L Alkaline Phosphatase (39-117) U/L Troponin I High Sens 50.5 H (<3.5-35.0) ng/L B-Natriuretic Peptide (<100) pg/mL Total Protein (6.5-8.0) g/dL Albumin (3.5-5.0) g/dL Lipase (8-78) U/L Urine Color Urine Appearance Urine pH (5.0-8.0) Ur Specific [place] (1.005-1.025) Urine Protein (NEG-TRACE) MG/DL Urine Glucose (UA) (NEG) MG/DL Urine Ketones (NEG) MG/DL Urine Blood (NEG) Urine Nitrite (NEG) Ur Leukocyte Esterase (NEG) Urine RBC (0) /HPF Urine WBC (0-4) /HPF Ur Squamous Epith Cells /LPF Urine Bacteria /LPF Digoxin (0.8-2.0) ng/mL Urine Opiates Screen Not Detected (Not Detect) Urine Fentanyl Screen Not Detected (Not Detect) Ur Barbiturates Screen Not Detected (Not Detect) Ur Phencyclidine Scrn Not Detected (Not Detect) Ur Amphetamines Screen Not Detected (Not Detect) U Benzodiazepines Scrn Not Detected (Not Detect) Urine Cocaine Screen Not Detected (Not Detect) U Marijuana (THC) Screen Not Detected (Not Detect) Ethyl Alcohol mg/dL COVID-19 (BRAVO) (Negative) COVID-19 Clin Com 12/16/21 Range/Units 11:00 WBC (4.8-10.8) X10*3/uL RBC (4.60-5.80) X10*6/uL Hgb (14.0-18.0) g/dl Hct (42.0-52.0) % MCV (80.0-98.0) fL MCH (27.0-33.0) pg MCHC (31.0-36.0) g/dl RDW (11.0-16.0) % Plt Count (160-400) X10*3/uL MPV (9.4-12.4) fL Immature Gran % (Auto) (0.0-0.4) % Neut % (Auto) (45-73) % Lymph % (Auto) (20-40) % [place] % (Auto) (2-11) % Eos % (Auto) (0-4) % Baso % (Auto) (0-2) % Lymph # (Auto) (1.2-4.9) X10*3/uL [place] # (Auto) (0.1-1.2) X10*3/uL Eos # (Auto) (0.0-0.4) X10*3/uL Baso # (Auto) (0.0-0.2) X10*3/uL Abs Immat Gran (auto) (0.00-0.03) X10*3/uL Absolute Neuts (auto) (2.0-8.3) x10*3/uL Absolute Nucleated RBC (0.0-0.012) X10*3/uL Nucleated RBC % (auto) (0.0-0.2) /100WBC PT (9.9-13.0) SEC INR (0.9-1.1) APTT (24.1-38.0) SEC Sodium (135-145) mmol/L Potassium (3.3-5.1) mmol/L Chloride (96-108) mmol/L Carbon Dioxide (22-29) mmol/L Anion Gap (12-20) BUN (9-16) mg/dL Creatinine (0.5-1.4) mg/dL Estim Creat Clear Calc Estimated GFR POC Glucose 316 H (60-115) mg/dL Random Glucose (60-115) mg/dL Calcium (8.4-10.2) mg/dL Magnesium (1.6-2.6) mg/dL Total Bilirubin (0.0-1.0) mg/dL Direct Bilirubin (0.0-0.5) mg/dL AST (5-37) U/L ALT (0-40) U/L Alkaline Phosphatase (39-117) U/L Troponin I High Sens (<3.5-35.0) ng/L B-Natriuretic Peptide (<100) pg/mL Total Protein (6.5-8.0) g/dL Albumin (3.5-5.0) g/dL Lipase (8-78) U/L Urine Color Urine Appearance Urine pH (5.0-8.0) Ur Specific [place] (1.005-1.025) Urine Protein (NEG-TRACE) MG/DL Urine Glucose (UA) (NEG) MG/DL Urine Ketones (NEG) MG/DL Urine Blood (NEG) Urine Nitrite (NEG) Ur Leukocyte Esterase (NEG) Urine RBC (0) /HPF Urine WBC (0-4) /HPF Ur Squamous Epith Cells /LPF Urine Bacteria /LPF Digoxin (0.8-2.0) ng/mL Urine Opiates Screen (Not Detect) Urine Fentanyl Screen (Not Detect) Ur Barbiturates Screen (Not Detect) Ur Phencyclidine Scrn (Not Detect) Ur Amphetamines Screen (Not Detect) U Benzodiazepines Scrn (Not Detect) Urine Cocaine Screen (Not Detect) U Marijuana (THC) Screen (Not Detect) Ethyl Alcohol mg/dL COVID-19 (BRAVO) (Negative) COVID-19 Clin Com ECG Data Attestation: I personally reviewed and interpreted this ECG as follows: ECG interpretation date: 12/16/21 ECG interpretation time: 08:40 Interpretation: Rate: 113 Rhythm: afib with RVR [place]: left LBBB ST T wave : tall T waves, no AMNA, nonspecific qTC: prolonged prior studies: old LBBB and afib The study has been interpreted contemporaneously by me. Discharge Plan Discharge Clinical Impression: Atrial fibrillation with rapid ventricular response, Acute dyspnea, Acute hyperglycemia, Chronic systolic CHF (congestive heart failure) Patient Disposition: Admitted As Inpatient Prescriptions: No Action cyanocobalamin (vitamin B-12) 1,000 mcg tablet 1 tab PO DAILY 0RF betamethasone dipropionate 0.05 % ointment 1 appl topical BID 0RF Protocol: Apply to: Apply to: AFFECTED AREAS Eliquis 5 mg Tablet 5 mg PO BID Qty: 60 0RF carvedilol 25 mg tablet 25 mg PO BID 0RF glipizide 10 mg tablet 10 mg PO BID 0RF metformin 1,000 mg tablet 1,000 mg PO BID 0RF pravastatin 40 mg tablet 40 mg PO BEDTIME 0RF hydralazine 25 mg Tablet 25 mg PO BID Qty: 60 0RF Protocol: Hold for SBP< HOLD for SBP < : 90 digoxin 125 mcg (0.125 mg) Tablet 0.125 mg PO DAILY Qty: 30 0RF Entresto 49-51 mg Tablet 1 tab PO BID Qty: 60 0RF Protocol: Hold for SBP< HOLD for SBP < : 90 spironolactone 25 mg Tablet 25 mg PO DAILY Qty: 30 0RF Protocol: Hold for SBP< HOLD for SBP < : 90 furosemide [Lasix] 80 mg tablet 80 mg PO BID Qty: 60 0RF multivitamin Tablet 1 tab PO QPM 0RF chlorthalidone 25 mg tablet 1 tab PO QAM 0RF aspirin 81 mg tablet,delayed release (DR/EC) 1 tab PO QPM 0RF acetaminophen 500 mg tablet 1 tab PO Q8H PRN (Reason: Pain) 0RF amlodipine 10 mg tablet 1 tab PO QAM 0RF folic acid 1 mg tablet 1 mg PO QAM 0RF thiamine HCl (vitamin B1) 100 mg tablet 100 mg PO QAM 0RF acamprosate 333 mg tablet,delayed release (DR/EC) 666 mg PO TID 0RF
[2021-12-16 08:16] LABS: MANUAL DIFF FLAG NO
[2021-12-16] MEDS: Insulin Regular, Human 100 UNIT/ML 3 ML VIAL 10 UNIT IVPUSH (08:17)
[2021-12-16] MEDS: Metoprolol Tartrate 5 MG/5 ML VIAL IVPUSH (08:17)
[2021-12-16] MEDS: Furosemide 20 MG/2 ML VIAL IVPUSH ×2 (08:17→09:09)
[2021-12-16 08:23] LABS: Basophils Percent Auto 0.2 % (0-2); Eosinophils Percent Auto 0.1 % (0-4); Hematocrit 41.8 % (42.0-52.0); Hemoglobin 13.7 g/dl (14.0-18.0); Imm Gran Abs Auto 0.11 X10*3/uL (0.00-0.03); Imm Gran Pct Auto 0.9 % (0.0-0.4); Lymphocytes Absolute Auto 1.9 X10*3/uL (1.2-4.9); Lymphocytes Percent Auto 15.4 % (20-40); Mean Corpuscular HGB Conc 32.8 g/dl (31.0-36.0); Mean Corpuscular Hemoglobin 27.2 pg (27.0-33.0); Mean Corpuscular Volume 83.1 fL (80.0-98.0); Mean Platelet Volume 11.1 fL (9.4-12.4); Monocytes Absolute Auto 0.8 X10*3/uL (0.1-1.2); Monocytes Percent Auto 6.6 % (2-11); Neutrophils Absolute Auto 9.3 x10*3/uL (2.0-8.3); Neutrophils Percent Auto 76.8 % (45-73); Platelet Count 334 X10*3/uL (160-400); Red Blood Count 5.03 X10*6/uL (4.60-5.80); White Blood Count 12.1 X10*3/uL (4.8-10.8)
[2021-12-16 08:25] LABS: INTERNATIONAL NORM RATIO 1.2 (0.9-1.1); Prothrombin Time 13.8 SEC (9.9-13.0)
[2021-12-16 08:28] LABS: Partial Thromboplastin Time 33.4 SEC (24.1-38.0)
[2021-12-16 08:31] LABS: COVID-19 Test Negative (Negative); IDNOW Serial# 16C4AD1C
[2021-12-16 08:37] LABS: Ethanol < 10 mg/dL
[2021-12-16 08:44] LABS: B Type Natriuretic Peptide 2807 pg/mL (<100); Troponin-I High Sensitivity 52.6 ng/L (<3.5-35.0)
[2021-12-16 09:04] LABS: Alanine Aminotransferase 14 U/L (0-40); Albumin Level 3.8 g/dL (3.5-5.0); Alkaline Phosphatase 97 U/L (39-117); Anion Gap 19 (12-20); Aspartate Amino Transferase 13 U/L (5-37); Bilirubin Direct 0.7 mg/dL (0.0-0.5); Bilirubin Total 1.7 mg/dL (0.0-1.0); Blood Urea Nitrogen 19 mg/dL (9-16); Calcium 9.2 mg/dL (8.4-10.2); Carbon Dioxide 24 mmol/L (22-29); Chloride 95 mmol/L (96-108); Creatinine Clr Calc Pharmacy 58.5; Estimated Glomerular Filt Rate 47; Glucose Random 602 mg/dL (60-115); Lipase 13 U/L (8-78); Magnesium 1.6 mg/dL (1.6-2.6); Sodium 134 mmol/L (135-145); Total Protein 6.9 g/dL (6.5-8.0)
[2021-12-16 09:21] LABS: Appearance Urine CLEAR; Color Urine YELLOW; Glucose Urine UA >=1000 MG/DL (NEG); Leukocyte Esterase Urine NEG (NEG); Nitrite Urine NEG (NEG); PH 5.5 (5.0-8.0); UACC Culture Trigger NO; Urine Blood TRACE (NEG); Urine Ketones NEG (NEG); Urine Protein 1+ MG/DL (NEG-TRACE)
--- NOTE | 2021-12-16 09:21 | PHA.MEDREC ---
Pharmacy Consult ? Medication Reconciliation Pharmacy has completed the medication reconciliation. Patient thought he had a medication list in his wallet, but does not know the names of the medications and would not be able to recognize the names. Patient get medboxes at [facility] pharmacy, and I contacted them for a list. Brooke Durand, [employer]
[2021-12-16 09:32] LABS: Digoxin < 0.3 ng/mL (0.8-2.0)
[2021-12-16 09:36] LABS: Amphetamine Screen Urine Not Detected (Not Detect); Barbiturates, Urine Not Detected (Not Detect); Benzodiazepines Screen Urine Not Detected (Not Detect); Cannabinoid Screen Urine Not Detected (Not Detect); Cocaine Screen Urine Not Detected (Not Detect); Fentanyl, urine Not Detected (Not Detect); Opiate Screen Urine Not Detected (Not Detect); Phencyclidine Screen Urine Not Detected (Not Detect)
[2021-12-16 09:48] LABS: Glucose, Whole Blood 431 mg/dL (60-115)
[2021-12-16] MEDS: Insulin Regular, Human 100 UNIT/ML 3 ML VIAL IVPUSH (09:58)
[2021-12-16 10:01] LABS: Bacteria Urine TRACE /LPF; WBC Urine 0 /HPF (0-4)
[2021-12-16] MEDS: carvediloL 25 MG TABLET PO (10:29)
[2021-12-16 10:56] LABS: Troponin-I High Sensitivity 50.5 ng/L (<3.5-35.0)
[2021-12-16 11:04] LABS: Glucose, Whole Blood 316 mg/dL (60-115)
--- NOTE | 2021-12-16 12:02 | PM.IMHP ---
History of Present Illness Date of Service: 12/16/21 Attending physician on admission: Yani Nuñez Chief Complaint: sob/edema 70 year old male with history of CHF, afib on eliquis and h/o alcohol dependence, recent admission for CHF- Present to the hospital because of mild leg edema possible related to medication noncompliance, diabetes with significant hyperglycemia- as per the patient patient's PCP ordered the medications but he could not fill it- so went to the pharmacy today and came to the hopsital: currently denies any chest pain or shortness of breath or abdominal pain or fever chills or nausea ,vomiting . in the ED: Found to have a leg edema, elevated BNP 2000 range, mild elevation troponin,, MU, severe hyperglycemia /diabetes. Patient was given IV Lasix, insulin for hyperglycemia- requested admission for CHF exacerbation in the setting of MU as well as diabetes with hyperglycemia. With insulin in ED- fingersticks are improving to 300 range, patient has pseudohyponatremia due to hyperglycemia. EKG: Seems sinus rhythm Review of Systems Review of Systems: as above. [facility] Medical History Alcohol use disorder, severe, dependence Atrial fibrillation with rapid ventricular response Atrial fibrillation with slow ventricular response Cardiomyopathy CHF (congestive heart failure) Chronic atrial fibrillation Chronic systolic CHF (congestive heart failure) Depressive disorder Diabetes HTN (hypertension) LBBB (left bundle branch block) Family History Mother HTN (hypertension) Father CAD (coronary artery disease) HTN (hypertension) Pertinent family history: as above. Social History Household Members: None Housing: Apartment Do you presently have visiting nurse or other home services: Yes Alcohol intake: current Alcohol intake frequency: former alcohol drinker Alcohol type: hard liquor Patient Tobacco Use Status: Former Tobacco user Smoked in Last 30 Days: No Use of substances other than those prescribed or required for medical reasons: No Advance Directives: Yes Advance Directives on File: Yes Advance Directives Date on File: 06/27/21 service: No Current occupational status: retired Meds Allergies Allergy/AdvReac Type Severity Reaction Status Date / Time No Known Allergies Allergy Verified 09/22/21 12:18 Active Medications: Current Medications Acamprosate (Acamprosate Calcium 333 Mg Tablet.) 666 mg PO TID [facility] Amlodipine Besylate (Amlodipine Besylate 10 Mg Tablet) 10 mg PO QAM [facility]; Protocol Apixaban (Apixaban 5 Mg Tablet) 5 mg PO BID [facility] Aspirin (Aspirin Enteric Coated 81 Mg Tablet.) 81 mg PO QPM [facility] Cyanocobalamin (Cyanocobalamin (Vitamin B-12) 1,000 Mcg Tablet) mcg PO DAILY [facility] Digoxin (Digoxin 0.125 Mg Tablet) 0.125 mg PO DAILY [facility] Folic Acid (Folic Acid 1 Mg Tablet) 1 mg PO QAM [facility] Furosemide (Furosemide 20 Mg/2 Ml Vial) 20 mg IVPUSH BID [facility]; Protocol Hydralazine HCl (Hydralazine Hcl 25 Mg Tablet) 25 mg PO BID [facility]; Protocol Multivitamins/Vitamin C (Multivitamin Tablet) 1 tab PO QPM [facility] Non-Formulary Medication (Acetaminophen) 1 tab PO Q8H PRN PRN Reason: Pain Non-Formulary Medication (Betamethasone Dipropionate) 1 appl TOPICAL BID [facility] Pharmacy Consult (Consult Rx Perform Med Rec) 1 each MISCELLANE ONCE PRN PRN Reason: Consult order Pravastatin Sodium (Pravastatin Sodium 40 Mg Tablet) mg PO BEDTIME [facility] Sacubitril/Valsartan (Sacubitril/Valsartan 49/51 1 Tab Tablet) 1 tab PO BID [facility]; Protocol Sodium Chloride (0.9 % Sodium Chloride Flush 3 Ml Syringe) [facility] Thiamine HCl (Thiamine Hcl 100 Mg Tablet) 100 mg PO QAM [facility] Home Medications Medication Instructions Recorded Confirmed Last Taken Type betamethasone dipropionate 0.05 % 1 appl TOPICAL BID 06/27/21 12/16/21 12/13/21 History topical ointment cyanocobalamin (vitamin B-12) 1 tab PO DAILY 06/27/21 12/16/21 12/13/21 History 1,000 mcg tablet acamprosate 333 mg tablet,delayed 666 mg PO TID 11/18/21 12/16/21 12/13/21 History release carvedilol 25 mg tablet 25 mg PO BID 11/18/21 12/16/21 12/13/21 History folic acid 1 mg tablet 1 mg PO QAM 11/18/21 12/16/2122 History glipizide 10 mg tablet 10 mg PO BID 11/18/21 12/16/21 12/13/21 History metformin 1,000 mg tablet 1,000 mg PO BID 11/18/21 12/16/21 12/13/21 History pravastatin 40 mg tablet 40 mg PO BEDTIME 11/18/21 12/16/21 12/13/21 History thiamine HCl (vitamin B1) 100 mg 100 mg PO QAM 11/18/21 12/16/21 12/13/21 History tablet acetaminophen 500 mg tablet 1 tab PO Q8H PRN 12/16/21 12/16/21 12/13/21 History amlodipine 10 mg tablet 1 tab PO QAM 12/16/21 12/16/21 12/13/21 History aspirin 81 mg tablet,delayed 1 tab PO QPM 12/16/21 12/16/21 12/13/21 History release chlorthalidone 25 mg tablet 1 tab PO QAM 12/16/21 12/16/21 12/13/21 History multivitamin 1 tab PO QPM 12/16/21 12/16/21 12/13/21 History Physical Exam Vital Signs and Narrative: Vital Signs: Last Vital Signs Temp 97.8 F 12/16/21 07:49 Pulse 103 H 12/16/21 09:09 Resp 24 H 12/16/21 09:09 BP 160/95 H 12/16/21 09:09 Pulse Ox 94 12/16/21 09:09 BMI result Body Mass Index 33.9 Appearance: Alert.? Oriented X3.? not in distress.? Eyes: Pupils equal, round and reactive to light.? Sclera nonicteric.? ENT: Pharynx normal.? Moist mucous membranes. cvs: rrr, [id number], jvd equivocal. res: clear to auscultation ,no rhonchii or wheezing abd: no rebound or guarding ,nt, bs present. ext pulses present , no cyanosis ,has 1+edema . neuro: axo3 , nonfocal. Results Labs CBC and Chem 7: 12/16/21 08:04 12/16/21 08:04 Labs: Laboratory Results - last 24 hr 12/16/21 12/16/21 12/16/21 08:04 08:04 08:04 MCV 83.1 MCH 27.2 MCHC 32.8 RDW 16.0 Plt Count 334 MPV 11.1 Immature Gran % (Auto) 0.9 H Neut % (Auto) 76.8 H Lymph % (Auto) 15.4 L [place] % (Auto) 6.6 Eos % (Auto) 0.1 Baso % (Auto) 0.2 Lymph # (Auto) 1.9 [place] # (Auto) 0.8 Eos # (Auto) 0.0 Baso # (Auto) 0.0 Abs Immat Gran (auto) 0.11 H Absolute Neuts (auto) 9.3 H Absolute Nucleated RBC 0.000 Nucleated RBC % (auto) 0.0 PT INR APTT Anion Gap 19 Estim Creat Clear Calc 58.5 Estimated GFR 47 POC Glucose Random Glucose 602 H* Calcium 9.2 Magnesium 1.6 Total Bilirubin 1.7 H Direct Bilirubin 0.7 H AST 13 D ALT 14 Alkaline Phosphatase 97 Troponin I High Sens 52.6 H D B-Natriuretic Peptide 2807 H Total Protein 6.9 Albumin 3.8 Lipase 13 Urine Color Urine Appearance Urine pH Ur Specific [place] Urine Protein Urine Glucose (UA) Urine Ketones Urine Blood Urine Nitrite Ur Leukocyte Esterase Urine RBC Urine WBC Ur Squamous Epith Cells Urine Bacteria Digoxin Urine Opiates Screen Urine Fentanyl Screen Ur Barbiturates Screen Ur Phencyclidine Scrn Ur Amphetamines Screen U Benzodiazepines Scrn Urine Cocaine Screen U Marijuana (THC) Screen Ethyl Alcohol COVID-19 (BRAVO) COVID-19 Clin Com 12/16/21 12/16/21 12/16/21 08:04 08:04 08:04 MCV MCH MCHC RDW Plt Count MPV Immature Gran % (Auto) Neut % (Auto) Lymph % (Auto) [place] % (Auto) Eos % (Auto) Baso % (Auto) Lymph # (Auto) [place] # (Auto) Eos # (Auto) Baso # (Auto) Abs Immat Gran (auto) Absolute Neuts (auto) Absolute Nucleated RBC Nucleated RBC % (auto) PT 13.8 H INR 1.2 H APTT 33.4 Anion Gap Estim Creat Clear Calc Estimated GFR POC Glucose 513 H* Random Glucose Calcium Magnesium Total Bilirubin Direct Bilirubin AST ALT Alkaline Phosphatase Troponin I High Sens B-Natriuretic Peptide Total Protein Albumin Lipase Urine Color Urine Appearance Urine pH Ur Specific [place] Urine Protein Urine Glucose (UA) Urine Ketones Urine Blood Urine Nitrite Ur Leukocyte Esterase Urine RBC Urine WBC Ur Squamous Epith Cells Urine Bacteria Digoxin Urine Opiates Screen Urine Fentanyl Screen Ur Barbiturates Screen Ur Phencyclidine Scrn Ur Amphetamines Screen U Benzodiazepines Scrn Urine Cocaine Screen U Marijuana (THC) Screen Ethyl Alcohol < 10 COVID-19 (BRAVO) COVID-19 Clin Com 12/16/21 12/16/21 12/16/21 08:09 08:09 09:13 MCV MCH MCHC RDW Plt Count MPV Immature Gran % (Auto) Neut % (Auto) Lymph % (Auto) [place] % (Auto) Eos % (Auto) Baso % (Auto) Lymph # (Auto) [place] # (Auto) Eos # (Auto) Baso # (Auto) Abs Immat Gran (auto) Absolute Neuts (auto) Absolute Nucleated RBC Nucleated RBC % (auto) PT INR APTT Anion Gap Estim Creat Clear Calc Estimated GFR POC Glucose Random Glucose Calcium Magnesium Total Bilirubin Direct Bilirubin AST ALT Alkaline Phosphatase Troponin I High Sens B-Natriuretic Peptide Total Protein Albumin Lipase Urine Color YELLOW Urine Appearance CLEAR Urine pH 5.5 Ur Specific [place] 1.010 Urine Protein 1+ H Urine Glucose (UA) >=1000 H Urine Ketones NEG Urine Blood TRACE Urine Nitrite NEG Ur Leukocyte Esterase NEG Urine RBC 1-4 Urine WBC 0 Ur Squamous Epith Cells NONE Urine Bacteria TRACE Digoxin < 0.3 L Urine Opiates Screen Urine Fentanyl Screen Ur Barbiturates Screen Ur Phencyclidine Scrn Ur Amphetamines Screen U Benzodiazepines Scrn Urine Cocaine Screen U Marijuana (THC) Screen Ethyl Alcohol COVID-19 (BRAVO) Negative COVID-19 Clin Com See Note 12/16/21 12/16/21 12/16/21 09:13 09:45 10:30 MCV MCH MCHC RDW Plt Count MPV Immature Gran % (Auto) Neut % (Auto) Lymph % (Auto) [place] % (Auto) Eos % (Auto) Baso % (Auto) Lymph # (Auto) [place] # (Auto) Eos # (Auto) Baso # (Auto) Abs Immat Gran (auto) Absolute Neuts (auto) Absolute Nucleated RBC Nucleated RBC % (auto) PT INR APTT Anion Gap Estim Creat Clear Calc Estimated GFR POC Glucose 431 H* Random Glucose Calcium Magnesium Total Bilirubin Direct Bilirubin AST ALT Alkaline Phosphatase Troponin I High Sens 50.5 H B-Natriuretic Peptide Total Protein Albumin Lipase Urine Color Urine Appearance Urine pH Ur Specific [place] Urine Protein Urine Glucose (UA) Urine Ketones Urine Blood Urine Nitrite Ur Leukocyte Esterase Urine RBC Urine WBC Ur Squamous Epith Cells Urine Bacteria Digoxin Urine Opiates Screen Not Detected Urine Fentanyl Screen Not Detected Ur Barbiturates Screen Not Detected Ur Phencyclidine Scrn Not Detected Ur Amphetamines Screen Not Detected U Benzodiazepines Scrn Not Detected Urine Cocaine Screen Not Detected U Marijuana (THC) Screen Not Detected Ethyl Alcohol COVID-19 (BRAVO) COVID-19 [employer] Com 12/16/21 11:00 MCV MCH MCHC RDW Plt Count MPV Immature Gran % (Auto) Neut % (Auto) Lymph % (Auto) [place] % (Auto) Eos % (Auto) Baso % (Auto) Lymph # (Auto) [place] # (Auto) Eos # (Auto) Baso # (Auto) Abs Immat Gran (auto) Absolute Neuts (auto) Absolute Nucleated RBC Nucleated RBC % (auto) PT INR APTT Anion Gap Estim Creat Clear Calc Estimated GFR POC Glucose 316 H Random Glucose Calcium Magnesium Total Bilirubin Direct Bilirubin AST ALT Alkaline Phosphatase Troponin I High Sens B-Natriuretic Peptide Total Protein Albumin Lipase Urine Color Urine Appearance Urine pH Ur Specific [place] Urine Protein Urine Glucose (UA) Urine Ketones Urine Blood Urine Nitrite Ur Leukocyte Esterase Urine RBC Urine WBC Ur Squamous Epith Cells Urine Bacteria Digoxin Urine Opiates Screen Urine Fentanyl Screen Ur Barbiturates Screen Ur Phencyclidine Scrn Ur Amphetamines Screen U Benzodiazepines Scrn Urine Cocaine Screen U Marijuana (THC) Screen Ethyl Alcohol COVID-19 (BRAVO) COVID-19 Clin Com ECG Attestation: I personally reviewed and interpreted this ECG as follows: (sinus rythem ,old lbbb) Imaging Radiologist's Impressions: Impressions Chest X-Ray 12/16/21 08:45 IMPRESSION: Right mid and lower lung infiltrate suspicious for pneumonia. CT may be useful for further evaluation. Chest CT 12/16/21 09:45 IMPRESSION: Query mild congestive change with edema at the lung bases. Fleischner guidelines were followed. Assessment and Plan (1) Chronic systolic CHF (congestive heart failure): Status: Acute (2) Acute hyperglycemia: Status: Acute Plan 70 year old male with history of CHF, afib on eliquis and h/o alcohol dependence, recent admission for CHF who presents with shortness of breath Acute on chronic HFrEF Exacerbation- probably renal getting medication from last 2-3 days edema and increaseing Bnp Likely secondary to dietary indiscretion, uncontrolled HR. trops flat, elevated BNP ECHO from 06/2001 with EF 20-25% continue IV? , hold aldactone sec to mu Monitor I/O may need cardiology eval if needed also from previous last admission record patient may need to follow up Cardiology for ICD outpatient. HTN--now better continue hydralazine, Coreg and now Entresto, hold Aldactone . AFIB hx: Currently in sinus rhythm. Continue Coreg, digoxin, Digoxin level in a.m.. continue Eliquis for anticoagulation Chronic alcohol use/ risk for alcohol withdrawal does not appear to be in withdrawal pt states he stopped drinking after his admission in June but did have 4-5 shots night prior to admission History of alcohol withdrawal ciwa scale ,vitamin Poorly controlled Diabetes. patient not compliant with diabetic diet Hold Metformin and glipizide Hba1c 13.0 last admission fs with adjusted sliding scale HLD statin mu: in setting of uncontrolled dm/chf moniter bmp nephrology eval DVP ppx--Eliquis HCP - cj Varghese Patient requires ongoing inpatient hospitalization :due to continuous need for IV diuretics for heart failure management, Diabetes with hyperglycemia- patient may benefit from 2 midnight stays d/w family in detail ,time spent. Quality Stroke Does the patient have a stroke diagnosis?: No VTE Prior VTE?: No VTE Risk Level:: Medical - moderate - high VTE Device Contraindication: N/A - Device Ordered VTE Drug Contraindication: N/A - Med Ordered
[2021-12-16 12:35] LABS: Estimated Average Glucose 289 mg/dL; Hemoglobin A1c % 11.7 %
[2021-12-16] MEDS: Digoxin 0.125 MG TABLET PO (13:07)
[2021-12-16] MEDS: Thiamine HCL 100 MG TABLET PO (13:08)
[2021-12-16] MEDS: Apixaban 5 MG TABLET PO ×2 (13:08→23:07)
[2021-12-16] MEDS: Folic Acid 1 MG TABLET PO (13:08)
[2021-12-16] MEDS: amLODIPine Besylate 10 MG TABLET PO (13:08)
[2021-12-16] MEDS: hydrALAZINE HCl 25 MG TABLET PO ×2 (13:08→23:07)
[2021-12-16] MEDS: Cyanocobalamin (Vitamin B-12) 1,000 MCG TABLET 1000 MCG PO (13:08)
--- NOTE | 2021-12-16 15:09 | PC.NURSE ---
Report given to Cassidy JACOBO for transfer to overflow area
[2021-12-16] MEDS: Acetaminophen 325 MG TABLET 650 MG PO (16:21)
[2021-12-16] MEDS: 0.9 % Sodium Chloride Flush 3 ML SYRINGE IVFLUSH (16:22)
--- NOTE | 2021-12-16 16:22 | PC.NURSE ---
awaiting pharmacy to bring missing med
[2021-12-16] MEDS: Acamprosate Calcium 333 MG TABLET.DR 666 MG PO ×2 (17:03→23:07)
[2021-12-16] MEDS: Lidocaine 4 % Patch ADH..PATCH 1 PATCH TRANSDERMA (17:06)
[2021-12-16 17:15] LABS: Glucose, Whole Blood 546 mg/dL (60-115)
--- NOTE | 2021-12-16 17:44 | P.CONNP_ITS ---
History of Present Illness Reason for Consult Consult date: 12/16/21 Reason for consult: MU Chief Complaint Chief complaint: CHF exacerbation History of Present Illness Narrative: 70 year old male with history of CHF, T2DM, afib on eliquis and h/o alcohol dependence, recent admission for CHF who presents to [facility] due to leg edema. Patient reports not being able to full medications ordered by his PCP. He curren tly denies any chest pain or shortness of breath or abdominal pain or fever chills or nausea ,vomiting. In the ED: Found to have a leg edema, elevated BNP 2000 range, mild elevation troponin, S-Cr = 1.46 mg/dL consistent with MU, severe hyperglycemia with POC glucose = 513 and UA showing > 1000 glucose. With insulin in ED- fingersticks are improving to 300 range, patient has pseudohyponatremia due to hyperglycemia. CXR with concerns for PNA, CT without contrast performed with mild mya changes with edema at lung bases. Review of Systems Constitutional: Reports as per [facility] Past Medical History Medical History Alcohol use disorder, severe, dependence Atrial fibrillation with rapid ventricular response Atrial fibrillation with slow ventricular response Cardiomyopathy CHF (congestive heart failure) Chronic atrial fibrillation Chronic systolic CHF (congestive heart failure) Depressive disorder Diabetes HTN (hypertension) LBBB (left bundle branch block) Family History Family History Mother HTN (hypertension) Father CAD (coronary artery disease) HTN (hypertension) Social History Social History Household Members: None Housing: Apartment Do you presently have visiting nurse or other home services: Yes Alcohol intake: current Alcohol intake frequency: former alcohol drinker Alcohol type: hard liquor Patient Tobacco Use Status: Former Tobacco user Smoked in Last 30 Days: No Use of substances other than those prescribed or required for medical reasons: No Advance Directives: Yes Advance Directives on File: Yes Advance Directives Date on File: 06/27/21 service: No Current occupational status: retired Meds Allergies Allergy/AdvReac Type Severity Reaction Status Date / Time No Known Allergies Allergy Verified 09/22/21 12:18 Active Medications: Current Medications Acamprosate (Acamprosate Calcium 333 Mg Tablet.) 666 mg PO TID [facility] Last Admin: 12/16/21 17:03 Dose: 666 mg Documented by: Acetaminophen (Acetaminophen 325 Mg Tablet) 650 mg PO Q8H PRN PRN Reason: Pain Last Admin: 12/16/21 16:21 Dose: 650 mg Documented by: Amlodipine Besylate (Amlodipine Besylate 10 Mg Tablet) 10 mg PO DAILY [facility]; Protocol Last Admin: 12/16/21 13:08 Dose: 10 mg Documented by: Apixaban (Apixaban 5 Mg Tablet) 5 mg PO BID [facility] Last Admin: 12/16/21 13:08 Dose: 5 mg Documented by: Aspirin (Aspirin Enteric Coated 81 Mg Tablet.) 81 mg PO BEDTIME [facility] Cyanocobalamin (Cyanocobalamin (Vitamin B-12) 1,000 Mcg Tablet) 1,000 mcg PO DAILY [facility] Last Admin: 12/16/21 13:08 Dose: 1,000 mcg Documented by: Dextrose (Dextrose 50 % 25 Gm/50 Ml Syringe) 25 gm IVPUSH Q15M PRN; Protocol PRN Reason: per Hypoglycemia Standing Ord. Dextrose (Dextrose 50 % 25 Gm/50 Ml Syringe) 25 gm IVPUSH Q15M PRN; Protocol PRN Reason: per Hypoglycemia Standing Ord. Digoxin (Digoxin 0.125 Mg Tablet) 0.125 mg PO DAILY [facility] Last Admin: 12/16/21 13:07 Dose: 0.125 mg Documented by: Folic Acid (Folic Acid 1 Mg Tablet) 1 mg PO DAILY [facility] Last Admin: 12/16/21 13:08 Dose: 1 mg Documented by: Furosemide (Furosemide 20 Mg/2 Ml Vial) 20 mg IVPUSH BID [facility]; Protocol Glucose (Glucose Gel 15 Gm Gel..Gram.) 15 gm PO Q15M PRN; Protocol PRN Reason: per Hypoglycemia Standing Ord. Glucose (Glucose Gel 15 Gm Gel..Gram.) 15 gm PO Q15M PRN; Protocol PRN Reason: per Hypoglycemia Standing Ord. Hydralazine HCl (Hydralazine Hcl 25 Mg Tablet) 25 mg PO BID [facility]; Protocol Last Admin: 12/16/21 13:08 Dose: 25 mg Documented by: Insulin Human Lispro (Insulin Lispro 100 Unit/Ml 3 Ml Vial) 0 unit SUBCUT QIDACHS [facility]; Protocol Last Admin: 12/16/21 17:30 Dose: Not Given Documented by: Insulin Human Lispro (Insulin Lispro 100 Unit/Ml 3 Ml Vial) 3 unit SUBCUT QIDACHS [facility] Last Admin: 12/16/21 17:31 Dose: Not Given Documented by: Lidocaine (Lidocaine 4 % Patch Adh..Patch) 1 patch TRANSDERMA DAILY [facility]; Protocol Last Admin: 12/16/21 17:06 Dose: 1 patch Documented by: Multivitamins/Vitamin C (Multivitamin Tablet) 1 tab PO BEDTIME [facility] Pharmacy Consult (Consult Rx Perform Med Rec) 1 each MISCELLANE ONCE PRN PRN Reason: Consult order Pravastatin Sodium (Pravastatin Sodium 40 Mg Tablet) 40 mg PO BEDTIME [facility] Sacubitril/Valsartan (Sacubitril/Valsartan 49/51 1 Tab Tablet) 1 tab PO BID [facility]; Protocol Sodium Chloride (0.9 % Sodium Chloride Flush 3 Ml Syringe) 3 ml IVFLUSH QSHIFT [facility] Last Admin: 12/16/21 16:22 Dose: 3 ml Documented by: Thiamine HCl (Thiamine Hcl 100 Mg Tablet) 100 mg PO DAILY [facility] Last Admin: 12/16/21 13:08 Dose: 100 mg Documented by: Triamcinolone Acetonide (Triamcinolone Acet 0.5 % Oint 15 Gm Tube) 1 appl TOPICAL BID [facility] Home Medications Medication Instructions Recorded Confirmed Last Taken Type betamethasone dipropionate 0.05 % 1 appl TOPICAL BID 06/27/21 12/16/21 12/13/21 History topical ointment cyanocobalamin (vitamin B-12) 1 tab PO DAILY 06/27/21 12/16/21 12/13/21 History 1,000 mcg tablet acamprosate 333 mg tablet,delayed 666 mg PO TID 11/18/21 12/16/21 12/13/21 History release carvedilol 25 mg tablet 25 mg PO BID 11/18/21 12/16/21 12/13/21 History folic acid 1 mg tablet 1 mg PO QAM 11/18/21 12/16/21 12/13/21 History glipizide 10 mg tablet 10 mg PO BID 11/18/21 12/16/21 12/13/21 History metformin 1,000 mg tablet 1,000 mg PO BID 11/18/21 12/16/21 12/13/21 History pravastatin 40 mg tablet 40 mg PO BEDTIME 11/18/21 12/16/21 12/13/21 History thiamine HCl (vitamin B1) 100 mg 100 mg PO QAM 11/18/21 12/16/21 12/13/21 History tablet acetaminophen 500 mg tablet 1 tab PO Q8H PRN 12/16/21 12/16/21 12/13/21 History amlodipine 10 mg tablet 1 tab PO QAM 12/16/21 12/16/21 12/13/21 History aspirin 81 mg tablet,delayed 1 tab PO QPM 12/16/21 12/16/21 12/13/21 History release chlorthalidone 25 mg tablet 1 tab PO QAM 12/16/21 12/16/21 12/13/21 History multivitamin 1 tab PO QPM 12/16/21 12/16/21 12/13/21 History Physical Exam Vital Signs: Last Vital Signs Temp 97.8 F 12/16/21 07:49 Pulse 93 12/16/21 15:29 Resp 16 12/16/21 15:29 BP 167/88 H 12/16/21 15:29 Pulse Ox 95 12/16/21 15:29 BMI result Body Mass Index 33.9 Const General: comfortable and no acute distress Orientation/consciousness: patient oriented x3 HEENT Head: Yes normocephalic and Yes atraumatic Neck Neck: Yes no JVD Resp Auscultation: clear to auscultation bilaterally Cardio Jugular venous distension: no JVD Rate: regular rate Rhythm: regular rhythm Heart sounds: S1 normal heart sound present and S2 normal heart sound present GI Auscultation: normal bowel sounds Neuro General: patient oriented x3 Extrem General: Yes no clubbing, cyanosis or edema Results Lab Results Result Diagrams: 12/16/21 08:04 12/16/21 08:04 Lab results: Chemistry 12/16/21 08:04 Sodium 134 L Potassium 4.0 Carbon Dioxide 24 BUN 19 H Creatinine 1.46 H Calcium 9.2 Hematology 12/16/21 08:04 WBC 12.1 H Hgb 13.7 L Plt Count 334 Urinalysis 12/16/21 09:13 Urine Color YELLOW Urine Appearance CLEAR Urine pH 5.5 Ur Specific [place] 1.010 Urine Protein 1+ H Urine Glucose (UA) >=1000 H Urine Ketones NEG Urine Blood TRACE Urine Nitrite NEG Ur Leukocyte Esterase NEG Urine RBC 1-4 Urine WBC 0 Ur Squamous Epith Cells NONE Assessment and Plan (1) Chronic systolic CHF (congestive heart failure): Status: Acute (2) Atrial fibrillation with rapid ventricular response: Status: Acute (3) Acute kidney injury: Status: Acute Plan MU, non-oliguric: Suspect BL S-Cr ~ 1.1-1.2 mg/dL Suggest: Daily 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 BS control. Suspect his glucosuria resulted in osmotic diuresis and IV depletion leading to MU. Hold metformin, acei/arb, Check phos for am. Iron panel. Procedures Date of Service Date of Service: 12/16/21
[2021-12-16] MEDS: Insulin Glargine,Hum.rec.anlog 100 UNIT/ML 10 ML VIAL 10 UNIT SUBCUT (17:51)
[2021-12-16] MEDS: Insulin Regular, Human 100 UNIT/ML 3 ML VIAL 15 UNIT IVPUSH (17:51)
[2021-12-16 18:27] LABS: Anion Gap 17 (12-20); Blood Urea Nitrogen 21 mg/dL (9-16); Calcium 9.1 mg/dL (8.4-10.2); Carbon Dioxide 26 mmol/L (22-29); Chloride 96 mmol/L (96-108); Creatinine Clr Calc Pharmacy 65.2; Estimated Glomerular Filt Rate 54; Glucose Random 551 mg/dL (60-115); Potassium 3.5 mmol/L (3.3-5.1); Sodium 135 mmol/L (135-145)
[2021-12-16 18:57] LABS: Glucose, Whole Blood 241 mg/dL (60-115)
--- NOTE | 2021-12-16 19:15 | PC.NURSE ---
Per Dr. Nuñez verbal order to hold lasix and entresto for tonight.
--- NOTE | 2021-12-16 20:00 | PC.NURSE ---
patient oob independently, ambulated to bathroom with steady gait, pt denies pain/discomfort, environmental monitoring technician intact, call burr within reach, will continue to monitor.
[2021-12-16 21:19] LABS: Glucose, Whole Blood 277 mg/dL (60-115)
[2021-12-16] MEDS: Aspirin Enteric Coated 81 MG TABLET.DR PO (23:07)
[2021-12-16] MEDS: Pravastatin Sodium 40 MG TABLET PO (23:07)
[2021-12-16] MEDS: Multivitamin TABLET 1 TAB PO (23:07)
[2021-12-16] MEDS: Insulin Lispro 100 UNIT/ML 3 ML VIAL SUBCUT ×2 (23:08)
--- NOTE | 2021-12-17 00:30 | PC.NURSE ---
Assumed care of pt Pt resting on hospital bed, watching TV Pt assisted with urinal NAD Will continue to monitor
[2021-12-17 04:58] LABS: Glucose, Whole Blood 197 mg/dL (60-115)
[2021-12-17 04:59] VITALS: BP 152/83; PULSE 74; RESP 18; TEMP 36.6; O2SAT 95
[2021-12-17 06:59] LABS: Anion Gap 12 (12-20); Blood Urea Nitrogen 20 mg/dL (9-16); Calcium 9.3 mg/dL (8.4-10.2); Carbon Dioxide 31 mmol/L (22-29); Chloride 97 mmol/L (96-108); Creatinine Clr Calc Pharmacy 98.3; Estimated Glomerular Filt Rate > 60; Glucose Random 222 mg/dL (60-115); Potassium 3.4 mmol/L (3.3-5.1); Sodium 137 mmol/L (135-145)
[2021-12-17 07:01] LABS: B Type Natriuretic Peptide 1405 pg/mL (<100)
[2021-12-17 07:32] LABS: Digoxin < 0.3 ng/mL (0.8-2.0)
[2021-12-17 07:41] VITALS: BP 158/80; PULSE 72; RESP 20; TEMP 36.4; O2SAT 96
[2021-12-17 08:54] LABS: Glucose, Whole Blood 280 mg/dL (60-115)
[2021-12-17] MEDS: Insulin Lispro 100 UNIT/ML 3 ML VIAL SUBCUT ×8 (09:01→21:29)
[2021-12-17] MEDS: Folic Acid 1 MG TABLET PO (09:02)
[2021-12-17] MEDS: Sacubitril/Valsartan 49/51 1 TAB TABLET PO ×2 (09:02→20:00)
[2021-12-17] MEDS: Cyanocobalamin (Vitamin B-12) 1,000 MCG TABLET 1000 MCG PO (09:02)
[2021-12-17] MEDS: amLODIPine Besylate 10 MG TABLET PO (09:03)
[2021-12-17] MEDS: Digoxin 0.125 MG TABLET PO (09:03)
[2021-12-17] MEDS: Apixaban 5 MG TABLET PO ×2 (09:03→20:00)
[2021-12-17] MEDS: hydrALAZINE HCl 25 MG TABLET PO ×2 (09:03→20:00)
[2021-12-17] MEDS: Thiamine HCL 100 MG TABLET PO (09:03)
[2021-12-17] MEDS: Acamprosate Calcium 333 MG TABLET.DR 666 MG PO ×3 (09:03→20:01)
[2021-12-17] MEDS: 0.9 % Sodium Chloride Flush 3 ML SYRINGE IVFLUSH ×3 (09:04→23:46)
[2021-12-17] MEDS: Furosemide 20 MG/2 ML VIAL IVPUSH (09:04)
[2021-12-17] MEDS: Lidocaine 4 % Patch ADH..PATCH 1 PATCH TRANSDERMA (09:07)
[2021-12-17] MEDS: Triamcinolone Acet 0.5 % Oint 15 GM TUBE 1 APPL TOPICAL ×2 (09:08→21:28)
--- NOTE | 2021-12-17 09:16 | P.PNIM_ITS ---
Subjective Subjective Date of Service: 12/17/21 Interval History: chf excerebation Review of Systems leg edema seems slightly better Physical Exam Vital Signs: Vital Signs: Last Vital Signs Temp 97.5 F 12/17/21 07:41 Pulse 72 12/17/21 07:41 Resp 20 12/17/21 07:41 BP 158/80 H 12/17/21 07:41 Pulse Ox 96 12/17/21 07:41 BMI result Body Mass Index 33.9 Appearance: Alert.? Oriented X3.? not in distress.? cvs: rrr, [id number], jvd equivocal. res: clear to auscultation ,no rhonchii or wheezing abd: no rebound or guarding ,nt, bs present. ext pulses present , no cyanosis ,has edema . neuro: axo3 , nonfoca Objective Data Active Medications Acamprosate (Acamprosate Calcium 333 Mg Tablet.) 666 mg PO TID [facility] [place] Last Admin: 12/17/21 09:03 Dose: 666 mg Documented by: BERNA Acetaminophen (Acetaminophen 325 Mg Tablet) 650 mg PO Q8H PRN PRN Reason: Pain Last Admin: 12/16/21 16:21 Dose: 650 mg Documented by: ISAIAH Amlodipine Besylate (Amlodipine Besylate 10 Mg Tablet) 10 mg PO DAILY [facility] [place]; Protocol Last Admin: 12/17/21 09:03 Dose: 10 mg Documented by: BERNA Apixaban (Apixaban 5 Mg Tablet) 5 mg PO BID [facility] [place] Last Admin: 12/17/21 09:03 Dose: 5 mg Documented by: BERNA Aspirin (Aspirin Enteric Coated 81 Mg Tablet.) 81 mg PO BEDTIME [facility] [place] Last Admin: 12/16/21 23:07 Dose: 81 mg Documented by: ISAIAH Cyanocobalamin (Cyanocobalamin (Vitamin B-12) 1,000 Mcg Tablet) 1,000 mcg PO DAILY [facility] [place] Last Admin: 12/17/21 09:02 Dose: 1,000 mcg Documented by: BERNA Dextrose (Dextrose 50 % 25 Gm/50 Ml Syringe) 25 gm IVPUSH Q15M PRN; Protocol PRN Reason: per Hypoglycemia Standing Ord. Dextrose (Dextrose 50 % 25 Gm/50 Ml Syringe) 25 gm IVPUSH Q15M PRN; Protocol PRN Reason: per Hypoglycemia Standing Ord. Digoxin (Digoxin 0.125 Mg Tablet) 0.125 mg PO DAILY [facility] [place] Last Admin: 12/17/21 09:03 Dose: 0.125 mg Documented by: BERNA Folic Acid (Folic Acid 1 Mg Tablet) 1 mg PO DAILY [facility] [place] Last Admin: 12/17/21 09:02 Dose: 1 mg Documented by: BERNA Furosemide (Furosemide 20 Mg/2 Ml Vial) 20 mg IVPUSH BID [facility] [place]; Protocol Last Admin: 12/17/21 09:04 Dose: 20 mg Documented by: BERNA Glucose (Glucose Gel 15 Gm Gel..Gram.) 15 gm PO Q15M PRN; Protocol PRN Reason: per Hypoglycemia Standing Ord. Glucose (Glucose Gel 15 Gm Gel..Gram.) 15 gm PO Q15M PRN; Protocol PRN Reason: per Hypoglycemia Standing Ord. Hydralazine HCl (Hydralazine Hcl 25 Mg Tablet) 25 mg PO BID [facility] [place]; Protocol Last Admin: 12/17/21 09:03 Dose: 25 mg Documented by: BERNA Insulin Human Lispro (Insulin Lispro 100 Unit/Ml 3 Ml Vial) 0 unit SUBCUT QIDACHS [facility] [place]; Protocol Last Admin: 12/17/21 09:01 Dose: 6 unit Documented by: BERNA Insulin Human Lispro (Insulin Lispro 100 Unit/Ml 3 Ml Vial) 3 unit SUBCUT QIDAS [facility] [place] Last Admin: 12/17/21 09:02 Dose: 3 unit Documented by: BERNA Lidocaine (Lidocaine 4 % Patch Adh..Patch) 1 patch TRANSDERMA DAILY [facility] [place]; Protocol Last Admin: 12/17/21 09:07 Dose: 1 patch Documented by: BERNA Multivitamins/Vitamin C (Multivitamin Tablet) 1 tab PO BEDTIME [facility] [place] Last Admin: 12/16/21 23:07 Dose: 1 tab Documented by: ISAIAH Pharmacy Consult (Consult Rx Perform Med Rec) 1 each MISCELLANE ONCE PRN PRN Reason: Consult order Pravastatin Sodium (Pravastatin Sodium 40 Mg Tablet) 40 mg PO BEDTIME [facility] [place] Last Admin: 12/16/21 23:07 Dose: 40 mg Documented by: ISAIAH Sacubitril/Valsartan (Sacubitril/Valsartan 49/51 1 Tab Tablet) 1 tab PO BID [facility] [place]; Protocol Last Admin: 12/17/21 09:02 Dose: 1 tab Documented by: BERNA Sodium Chloride (0.9 % Sodium Chloride Flush 3 Ml Syringe) 3 ml IVFLUSH QSHIFT [facility] [place] Last Admin: 12/17/21 09:04 Dose: 3 ml Documented by: BERNA Thiamine HCl (Thiamine Hcl 100 Mg Tablet) 100 mg PO DAILY [facility] [place] Last Admin: 12/17/21 09:03 Dose: 100 mg Documented by: BERNA Triamcinolone Acetonide (Triamcinolone Acet 0.5 % Oint 15 Gm Tube) 1 appl TOPICAL BID [facility] [place] Last Admin: 12/17/21 09:08 Dose: 1 appl Documented by: BERNA Labs CBC & Chem 7: 12/16/21 08:04 12/17/21 06:25 Labs: Laboratory Results - last 24 hr 12/16/21 12/16/21 12/16/21 08:04 08:09 09:13 Anion Gap Estim Creat Clear Calc Estimated GFR POC Glucose Random Glucose Estimat Average Glucose 289 Hemoglobin A1c % 11.7 Calcium Troponin I High Sens B-Natriuretic Peptide Urine Color YELLOW Urine Appearance CLEAR Urine pH 5.5 Ur Specific [place] 1.010 Urine Protein 1+ H Urine Glucose (UA) >=1000 H Urine Ketones NEG Urine Blood TRACE Urine Nitrite NEG Ur Leukocyte Esterase NEG Urine RBC 1-4 Urine WBC 0 Ur Squamous Epith Cells NONE Urine Bacteria TRACE Digoxin < 0.3 L Urine Opiates Screen Urine Fentanyl Screen Ur Barbiturates Screen Ur Phencyclidine Scrn Ur Amphetamines Screen U Benzodiazepines Scrn Urine Cocaine Screen U Marijuana (THC) Screen 12/16/21 12/16/21 12/16/21 09:13 09:45 10:30 Anion Gap Estim Creat Clear Calc Estimated GFR POC Glucose 431 H* Random Glucose Estimat Average Glucose Hemoglobin A1c % Calcium Troponin I High Sens 50.5 H B-Natriuretic Peptide Urine Color Urine Appearance Urine pH Ur Specific [place] Urine Protein Urine Glucose (UA) Urine Ketones Urine Blood Urine Nitrite Ur Leukocyte Esterase Urine RBC Urine WBC Ur Squamous Epith Cells Urine Bacteria Digoxin Urine Opiates Screen Not Detected Urine Fentanyl Screen Not Detected Ur Barbiturates Screen Not Detected Ur Phencyclidine Scrn Not Detected Ur Amphetamines Screen Not Detected U Benzodiazepines Scrn Not Detected Urine Cocaine Screen Not Detected U Marijuana (THC) Screen Not Detected 12/16/21 12/16/21 12/16/21 11:00 17:07 18:03 Anion Gap 17 Estim Creat Clear Calc 65.2 Estimated GFR 54 POC Glucose 316 H 546 H* Random Glucose 551 H* Estimat Average Glucose Hemoglobin A1c % Calcium 9.1 Troponin I High Sens B-Natriuretic Peptide Urine Color Urine Appearance Urine pH Ur Specific [place] Urine Protein Urine Glucose (UA) Urine Ketones Urine Blood Urine Nitrite Ur Leukocyte Esterase Urine RBC Urine WBC Ur Squamous Epith Cells Urine Bacteria Digoxin Urine Opiates Screen Urine Fentanyl Screen Ur Barbiturates Screen Ur Phencyclidine Scrn Ur Amphetamines Screen U Benzodiazepines Scrn Urine Cocaine Screen U Marijuana (THC) Screen 12/16/21 12/16/21 12/17/21 18:53 21:14 04:49 Anion Gap Estim Creat Clear Calc Estimated GFR POC Glucose 241 H 277 H 197 H Random Glucose Estimat Average Glucose Hemoglobin A1c % Calcium Troponin I High Sens B-Natriuretic Peptide Urine Color Urine Appearance Urine pH Ur Specific [place] Urine Protein Urine Glucose (UA) Urine Ketones Urine Blood Urine Nitrite Ur Leukocyte Esterase Urine RBC Urine WBC Ur Squamous Epith Cells Urine Bacteria Digoxin Urine Opiates Screen Urine Fentanyl Screen Ur Barbiturates Screen Ur Phencyclidine Scrn Ur Amphetamines Screen U Benzodiazepines Scrn Urine Cocaine Screen U Marijuana (THC) Screen 12/17/21 12/17/21 12/17/21 06:25 06:25 06:25 Anion Gap 12 Estim Creat Clear Calc 98.3 Estimated GFR > 60 POC Glucose Random Glucose 222 H D Estimat Average Glucose Hemoglobin A1c % Calcium 9.3 Troponin I High Sens B-Natriuretic Peptide 1405 H Urine Color Urine Appearance Urine pH Ur Specific [place] Urine Protein Urine Glucose (UA) Urine Ketones Urine Blood Urine Nitrite Ur Leukocyte Esterase Urine RBC Urine WBC Ur Squamous Epith Cells Urine Bacteria Digoxin < 0.3 L Urine Opiates Screen Urine Fentanyl Screen Ur Barbiturates Screen Ur Phencyclidine Scrn Ur Amphetamines Screen U Benzodiazepines Scrn Urine Cocaine Screen U Marijuana (THC) Screen 12/17/21 08:50 Anion Gap Estim Creat Clear Calc Estimated GFR POC Glucose 280 H Random Glucose Estimat Average Glucose Hemoglobin A1c % Calcium Troponin I High Sens B-Natriuretic Peptide Urine Color Urine Appearance Urine pH Ur Specific [place] Urine Protein Urine Glucose (UA) Urine Ketones Urine Blood Urine Nitrite Ur Leukocyte Esterase Urine RBC Urine WBC Ur Squamous Epith Cells Urine Bacteria Digoxin Urine Opiates Screen Urine Fentanyl Screen Ur Barbiturates Screen Ur Phencyclidine Scrn Ur Amphetamines Screen U Benzodiazepines Scrn Urine Cocaine Screen U Marijuana (THC) Screen Assessment and Plan (1) Chronic systolic CHF (congestive heart failure): Status: Acute Plan 70 year old male with history of CHF, afib on eliquis and h/o alcohol dependence, recent admission for CHF who presents with shortness of breath Acute on chronic HFrEF ? Exacerbation- probably renal getting medication from last 2-3 days ?edema and increaseing Bnp Likely secondary to dietary indiscretion, uncontrolled HR. trops flat, elevated BNP ECHO from 06/2001 with EF 20-25% continue IV? , hold aldactone sec to nesha Monitor I/O may need cardiology eval if needed also? from previous last admission record patient may need to follow up Cardiology for ICD outpatient. ?HTN--now better continue ? hydralazine, Coreg and now Entresto, hold Aldactone . AFIB hx:? Currently in sinus rhythm. Continue Coreg, digoxin,? Digoxin level?noted ? unlcera if took medictaions for 5 days. continue Eliquis for anticoagulation Chronic alcohol use/ risk for alcohol withdrawal does not appear to be in withdrawal pt states he stopped drinking after his admission in June but did have 4-5 s hots night prior to admission History of alcohol withdrawal ciwa scale ,vitamin Poorly controlled Diabetes. patient not compliant with diabetic diet Fingersticks running 190-220 range Hold Metformin and glipizide Hba1c 11.7 last admission fs with adjusted? sliding scale, added glipizide HLD statin nesha: improved in setting of uncontrolled dm/chf moniter bmp DVP ppx--Eliquis HCP - cj Varghese Inpatient need: CHF exacerbation, uncontrolled diabetes. Quality Stroke Does the patient have a stroke diagnosis?: No VTE Prior VTE?: No VTE Risk Level:: Medical - moderate - high VTE Device Contraindication: N/A - Device Ordered VTE Drug Contraindication: N/A - Med Ordered
--- NOTE | 2021-12-17 09:55 | MHC.CM.PN ---
with interpertaor met with pt ,pt reports living alone having rn visits thru [facility] and housekeeping thru [facility] he also has a lifeline his son /hcp will transport him home when dcd
[2021-12-17] MEDS: Insulin Glargine,Hum.rec.anlog 100 UNIT/ML 10 ML VIAL 10 UNIT SUBCUT (10:30)
[2021-12-17 11:27] VITALS: BP 143/88; PULSE 78; RESP 20; TEMP 36.3; O2SAT 98
[2021-12-17 12:48] LABS: Glucose, Whole Blood 237 mg/dL (60-115)
[2021-12-17 15:30] VITALS: BP 151/82; PULSE 69; RESP 20; TEMP 36.6; O2SAT 95
[2021-12-17 16:33] VITALS: BP 118/88; PULSE 71; TEMP 36.3; O2SAT 97
[2021-12-17 17:18] LABS: Glucose, Whole Blood 254 mg/dL (60-115)
[2021-12-17 19:23] VITALS: BP 148/76; PULSE 66; RESP 16; O2SAT 95
--- NOTE | 2021-12-17 19:49 | PC.NURSE ---
Patient became upset, stating that someone took his belongings and got out of bed. Bonding Equipment Operator and security at bedside. Patient calmed down and back in bed. Tele in place. Will monitor closely.
[2021-12-17] MEDS: Aspirin Enteric Coated 81 MG TABLET.DR PO (20:00)
[2021-12-17] MEDS: Multivitamin TABLET 1 TAB PO (20:01)
[2021-12-17] MEDS: Pravastatin Sodium 40 MG TABLET PO (20:01)
[2021-12-17 20:39] LABS: Glucose, Whole Blood 234 mg/dL (60-115)
--- NOTE | 2021-12-17 22:56 | PC.NURSE ---
Commercial Print Salesman, Leanne at bedside and patient showed her hundreds of dollars in his wallet. Patient educated by Tricia and this nurse that security can come and place his wallet in a safe to ensure it won't get lost, patient refused. Patient wrapped wallet in tape and put on bedside table. Nursing Etl Developer, Alysia notified of event.
[2021-12-18] VITALS (7 sets, daily range): BP systolic 133–180; BP diastolic 65–95; PULSE 68–86; RESP 17–20; TEMP 36.4–37; O2SAT 95–98; BMI 31.9
--- NOTE | 2021-12-18 00:20 | PC.NURSE ---
Addendum entered by Marifer Rice, RN 12/18/21 01:31: 0131: Patient refused Trazodone and became agitated when told that he would be moving to a bed upstairs. Dr Cooper Notified, awaiting new orders. Certified Dialysis Technician, Les and Security at bedside. Patient agreed to to go [facility] Security, Certified Dialysis Technician and senior software quality engineer and ED RN. Patient wouldn't allow tele monitor to be applied during transport. All patient belongings with patient. Original Note: Patient agitated, pulled off tele leads and trying to get oob, pharmacognosist, Les at bedside, patient calmed down. CIWA 6. Dr Bernstein notified and new orders received, see MAR.
[2021-12-18 06:26] LABS: B Type Natriuretic Peptide 832 pg/mL (<100)
[2021-12-18 07:03] LABS: Glucose, Whole Blood 216 mg/dL (60-115)
[2021-12-18] MEDS: Insulin Glargine,Hum.rec.anlog 100 UNIT/ML 10 ML VIAL 10 UNIT SUBCUT (08:13)
[2021-12-18] MEDS: hydrALAZINE HCl 25 MG TABLET PO ×2 (08:14→20:39)
[2021-12-18] MEDS: Thiamine HCL 100 MG TABLET PO (08:14)
[2021-12-18] MEDS: Insulin Lispro 100 UNIT/ML 3 ML VIAL SUBCUT ×7 (08:14→20:39)
[2021-12-18] MEDS: amLODIPine Besylate 10 MG TABLET PO (08:14)
[2021-12-18] MEDS: 0.9 % Sodium Chloride Flush 3 ML SYRINGE IVFLUSH ×2 (08:15→16:41)
[2021-12-18] MEDS: Apixaban 5 MG TABLET PO ×2 (08:15→20:38)
[2021-12-18] MEDS: Cyanocobalamin (Vitamin B-12) 1,000 MCG TABLET 1000 MCG PO (08:15)
[2021-12-18] MEDS: Digoxin 0.125 MG TABLET PO (08:15)
[2021-12-18] MEDS: Lidocaine 4 % Patch ADH..PATCH 1 PATCH TRANSDERMA (08:15)
[2021-12-18] MEDS: Folic Acid 1 MG TABLET PO (08:15)
[2021-12-18] MEDS: Sacubitril/Valsartan 49/51 1 TAB TABLET PO ×2 (08:15→20:39)
[2021-12-18] MEDS: Triamcinolone Acet 0.5 % Oint 15 GM TUBE 1 APPL TOPICAL ×2 (08:21→20:50)
[2021-12-18] MEDS: Furosemide 40 MG TABLET PO ×2 (08:22→17:19)
[2021-12-18 11:04] LABS: Glucose, Whole Blood 405 mg/dL (60-115)
--- NOTE | 2021-12-18 11:50 | P.PNNP_ITS ---
Subjective Subjective Date of Service: 12/18/21 Interval history: chf excerebation Chart Reviewed. Events noted. Physical Exam Vital Signs: Vital Signs: Last Vital Signs Temp 97.8 F 12/18/21 11:03 Pulse 78 12/18/21 11:03 Resp 18 12/18/21 11:03 BP 133/83 12/18/21 11:03 Pulse Ox 98 12/18/21 11:03 BMI result Body Mass Index 31.9 Const: General: healthy appearing, comfortable and no acute distress Orientation/consciousness: patient oriented x3 HEENT: Head: Yes normocephalic Neck: Neck: Yes no JVD Resp: Auscultation: clear to auscultation bilaterally Cardio: Jugular venous distension: no JVD Rate: regular rate Rhythm: regular rhythm Heart sounds: S1 normal heart sound present and S2 normal heart sound present GI: Auscultation: normal bowel sounds Neuro: General: patient oriented x3 and moves all extremities Extrem: General: Yes edema Objective Data Labs CBC & Chem 7: 12/16/21 08:04 12/17/21 06:25 Labs: Laboratory Results - last 24 hr 12/17/21 12/17/21 12/17/21 12:41 17:00 20:32 POC Glucose 237 H 254 H 234 H B-Natriuretic Peptide 12/18/21 12/18/21 12/18/21 05:37 07:00 10:54 POC Glucose 216 H 405 H* B-Natriuretic Peptide 832 H Procedures Date of Service Date of Service: 12/18/21 Assessment & Plan Assessment and plan (1) Acute kidney injury: Status: Acute Plan Plan MU, non-oliguric: Suspect BL S-Cr ~ 1.1-1.2 mg/dL Suggest: Daily renal product applications scientist uop-if oliguria,/anuria suggest renal US. BS control. Suspect his glucosuria resulted in osmotic diuresis and IV depletion leading to MU. Ok to restart metformin, entresto, and loop diuretic. Check renal panel, iron panel, phosphorus as outpatient next Mon Will arrange for outpatient follow up. Stressed importance of salt restriction to patient (< 1.5 Gm/day) Drink to thirst. May require fluid restriction moving forward. Time Spent With Patient Time: Total time spent is greater than 50% in coordination of care (as documented) at patient's floor/unit and/or counseling patient: Progress Note: Quality Stroke Does the patient have a stroke diagnosis?: No
--- NOTE | 2021-12-18 14:59 | HO.PM.IMPN ---
Subjective Subjective Date of Service: 12/18/21 Interval History: chf ,uncontrolled dm. Review of Systems sob seems slightly better may have sundowning Physical Exam Vital Signs: Vital Signs: Last Vital Signs Temp 97.8 F 12/18/21 11:03 Pulse 78 12/18/21 11:03 Resp 18 12/18/21 11:03 BP 133/83 12/18/21 11:03 Pulse Ox 98 12/18/21 11:03 BMI result Body Mass Index 31.9 Appearance: Alert.? Oriented X3.? not in distress.? cvs: rrr, [id number], jvd equivocal. res: clear to auscultation ,no rhonchii or wheezing abd: no rebound or guarding ,nt, bs present. ext pulses present , no cyanosis ,has edema . neuro: axo3 , nonfocal Objective Data Active Medications Acamprosate (Acamprosate Calcium 333 Mg Tablet.) 666 mg PO TID [facility] Last Admin: 12/18/21 11:59 Dose: Not Given Documented by: RACHEL Non-Admin Reason: Patient Refused Acetaminophen (Acetaminophen 325 Mg Tablet) 650 mg PO Q8H PRN PRN Reason: Pain Last Admin: 12/16/21 16:21 Dose: 650 mg Documented by: ISAIAH Amlodipine Besylate (Amlodipine Besylate 10 Mg Tablet) 10 mg PO DAILY [facility]; Protocol Last Admin: 12/18/21 08:14 Dose: 10 mg Documented by: RACHEL Apixaban (Apixaban 5 Mg Tablet) 5 mg PO BID [facility] Last Admin: 12/18/21 08:15 Dose: 5 mg Documented by: RACHEL Aspirin (Aspirin Enteric Coated 81 Mg Tablet.) 81 mg PO BEDTIME [facility] Last Admin: 12/17/21 20:00 Dose: 81 mg Documented by: SAUL Cyanocobalamin (Cyanocobalamin (Vitamin B-12) 1,000 Mcg Tablet) 1,000 mcg PO DAILY [facility] Last Admin: 12/18/21 08:15 Dose: 1,000 mcg Documented by: RACHEL Dextrose (Dextrose 50 % 25 Gm/50 Ml Syringe) 25 gm IVPUSH Q15M PRN; Protocol PRN Reason: per Hypoglycemia Standing Ord. Dextrose (Dextrose 50 % 25 Gm/50 Ml Syringe) 25 gm IVPUSH Q15M PRN; Protocol PRN Reason: per Hypoglycemia Standing Ord. Digoxin (Digoxin 0.125 Mg Tablet) 0.125 mg PO DAILY [facility] Last Admin: 12/18/21 08:15 Dose: 0.125 mg Documented by: RACHEL Folic Acid (Folic Acid 1 Mg Tablet) 1 mg PO DAILY [facility] Last Admin: 12/18/21 08:15 Dose: 1 mg Documented by: RACHEL Furosemide (Furosemide 40 Mg Tablet) 40 mg PO BID@0900,1800 [facility]; Protocol Last Admin: 12/18/21 08:22 Dose: 40 mg Documented by: RACHEL Glucose (Glucose Gel 15 Gm Gel..Gram.) 15 gm PO Q15M PRN; Protocol PRN Reason: per Hypoglycemia Standing Ord. Glucose (Glucose Gel 15 Gm Gel..Gram.) 15 gm PO Q15M PRN; Protocol PRN Reason: per Hypoglycemia Standing Ord. Hydralazine HCl (Hydralazine Hcl 25 Mg Tablet) 25 mg PO BID [facility]; Protocol Last Admin: 12/18/21 08:14 Dose: 25 mg Documented by: RACHEL Hydroxyzine HCl (Hydroxyzine Hcl 25 Mg Tablet) 25 mg PO Q6H PRN PRN Reason: anxiety/restlessness Insulin Glargine (Insulin Glargine,Hum.Rec.Anlog 100 Unit/Ml 10 Ml Vial) 10 unit SUBCUT DAILY [facility] Last Admin: 12/18/21 08:13 Dose: 10 unit Documented by: RACHEL Insulin Human Lispro (Insulin Lispro 100 Unit/Ml 3 Ml Vial) 0 unit SUBCUT QIDACHS [facility]; Protocol Last Admin: 12/18/21 12:19 Dose: 10 unit Documented by: RACHEL Insulin Human Lispro (Insulin Lispro 100 Unit/Ml 3 Ml Vial) 3 unit SUBCUT QIDACHS [facility] Last Admin: 12/18/21 12:19 Dose: 3 unit Documented by: RACHEL Lidocaine (Lidocaine 4 % Patch Adh..Patch) 1 patch TRANSDERMA DAILY [facility]; Protocol Last Admin: 12/18/21 08:15 Dose: 1 patch Documented by: RACHEL Multivitamins/Vitamin C (Multivitamin Tablet) 1 tab PO BEDTIME [facility] Last Admin: 12/17/21 20:01 Dose: 1 tab Documented by: SAUL Pharmacy Consult (Consult Rx Perform Med Rec) 1 each MISCELLANE ONCE PRN PRN Reason: Consult order Pravastatin Sodium (Pravastatin Sodium 40 Mg Tablet) 40 mg PO BEDTIME [facility] Last Admin: 12/17/21 20:01 Dose: 40 mg Documented by: SAUL Sacubitril/Valsartan (Sacubitril/Valsartan 49/51 1 Tab Tablet) 1 tab PO BID [facility]; Protocol Last Admin: 12/18/21 08:15 Dose: 1 tab Documented by: RACHEL Sodium Chloride (0.9 % Sodium Chloride Flush 3 Ml Syringe) 3 ml IVFLUSH QSHIFT [facility] Last Admin: 12/18/21 08:15 Dose: 3 ml Documented by: RACHEL Thiamine HCl (Thiamine Hcl 100 Mg Tablet) 100 mg PO DAILY [facility] Last Admin: 12/18/21 08:14 Dose: 100 mg Documented by: RACHEL Triamcinolone Acetonide (Triamcinolone Acet 0.5 % Oint 15 Gm Tube) 1 appl TOPICAL BID [facility] Last Admin: 12/18/21 08:21 Dose: 1 appl Documented by: RACHEL Labs CBC & Chem 7: 12/16/21 08:04 12/17/21 06:25 Labs: Laboratory Results - last 24 hr 12/17/21 12/17/21 12/18/21 17:00 20:32 05:37 POC Glucose 254 H 234 H B-Natriuretic Peptide 832 H 12/18/21 12/18/21 07:00 10:54 POC Glucose 216 H 405 H* B-Natriuretic Peptide Assessment and Plan (1) Chronic systolic CHF (congestive heart failure): Status: Acute Plan 70 year old male with history of CHF, afib on eliquis and h/o alcohol dependence, recent admission for CHF who presents with shortness of breath Acute on chronic HFrEF ? Exacerbation- probably renal getting medication from last 2-3 days ?edema and increaseing Bnp Likely secondary to dietary indiscretion, uncontrolled HR. trops flat, elevated BNP ECHO from 06/2001 with EF 20-25% continue IV? , hold aldactone sec to nesha Monitor I/O may need cardiology eval if needed also? from previous last admission record patient may need to follow up Cardiology for ICD outpatient. ?HTN--now better continue ? hydralazine, Coreg and now Entresto, hold Aldactone . AFIB hx:? Currently in sinus rhythm. Continue Coreg, digoxin,? Digoxin level?noted ? unlcera if took medictaions for 5 days. continue Eliquis for anticoagulation Chronic alcohol use/ risk for alcohol withdrawal does not appear to be in withdrawal pt states he stopped drinking after his admission in June but did have 4-5 shots night prior to admission History of alcohol withdrawal ciwa scale ,vitamin Poorly controlled Diabetes. patient not compliant with diabetic diet Fingersticks running 200-300 range Hold Metformin Hba1c 11.7 last admission fs with adjusted? sliding scale,continue lantus, adjusted coverage with meal,added glipizide HLD statin nesha: improved in setting of uncontrolled dm/chf moniter arik DVP ppx--Eliquis HCP - cj Varghese Inpatient need: CHF exacerbation, uncontrolled diabetes. Quality Stroke Does the patient have a stroke diagnosis?: No VTE Prior VTE?: No VTE Risk Level:: Medical - moderate - high VTE Device Contraindication: N/A - Device Ordered VTE Drug Contraindication: N/A - Med Ordered
[2021-12-18 15:49] LABS: Glucose, Whole Blood 230 mg/dL (60-115)
[2021-12-18] MEDS: Acamprosate Calcium 333 MG TABLET.DR 666 MG PO ×2 (16:40→20:38)
[2021-12-18] MEDS: Multivitamin TABLET 1 TAB PO (20:38)
[2021-12-18] MEDS: Pravastatin Sodium 40 MG TABLET PO (20:38)
[2021-12-18] MEDS: Aspirin Enteric Coated 81 MG TABLET.DR PO (20:38)
[2021-12-18] MEDS: glipiZIDE 10 MG TABLET PO (20:39)
[2021-12-18 20:42] LABS: Glucose, Whole Blood 113 mg/dL (60-115)
[2021-12-19 04:00] VITALS: BP 138/64; PULSE 89; RESP 20; TEMP 37; O2SAT 97
[2021-12-19] MEDS: 0.9 % Sodium Chloride Flush 3 ML SYRINGE IVFLUSH ×2 (05:07→08:23)
[2021-12-19 06:00] VITALS: BMI 31.5
[2021-12-19 07:23] LABS: Glucose, Whole Blood 265 mg/dL (60-115)
[2021-12-19 08:00] VITALS: BP 153/100; PULSE 61; RESP 18; TEMP 36.1; O2SAT 96
[2021-12-19] MEDS: Insulin Glargine,Hum.rec.anlog 100 UNIT/ML 10 ML VIAL 10 UNIT SUBCUT (08:20)
[2021-12-19] MEDS: Insulin Lispro 100 UNIT/ML 3 ML VIAL SUBCUT ×4 (08:21→11:40)
[2021-12-19] MEDS: Digoxin 0.125 MG TABLET PO (08:22)
[2021-12-19] MEDS: Folic Acid 1 MG TABLET PO (08:22)
[2021-12-19] MEDS: hydrALAZINE HCl 25 MG TABLET PO (08:22)
[2021-12-19] MEDS: glipiZIDE 10 MG TABLET PO (08:22)
[2021-12-19] MEDS: Sacubitril/Valsartan 49/51 1 TAB TABLET PO (08:22)
[2021-12-19] MEDS: Acamprosate Calcium 333 MG TABLET.DR 666 MG PO (08:22)
[2021-12-19] MEDS: Cyanocobalamin (Vitamin B-12) 1,000 MCG TABLET 1000 MCG PO (08:22)
[2021-12-19] MEDS: Thiamine HCL 100 MG TABLET PO (08:22)
[2021-12-19] MEDS: amLODIPine Besylate 10 MG TABLET PO (08:22)
[2021-12-19] MEDS: Furosemide 40 MG TABLET PO (08:22)
[2021-12-19] MEDS: Apixaban 5 MG TABLET PO (08:22)
[2021-12-19 11:02] LABS: Glucose, Whole Blood 219 mg/dL (60-115)
[2021-12-19 11:31] VITALS: BP 142/102; PULSE 82; RESP 18; TEMP 36.6; O2SAT 98
[2021-12-19] MEDS: carvediloL 25 MG TABLET PO (11:39)
[2021-12-19] MEDS: Triamcinolone Acet 0.5 % Oint 15 GM TUBE 1 APPL TOPICAL (11:39)
--- NOTE | 2021-12-19 11:47 | MHC.CM.PN ---
pt to be dcd today eliza/cca notified pt is active with thomas son to transport home
--- NOTE | 2021-12-19 13:09 | PM.DS ---
DS: Providers Provider Date of Service: 12/19/21 Date of admission: 12/16/21 11:56 Primary care physician: Matthias Marx MD Consults: 12/16/21 12:08 Consult to Nephrology Routine Consulting Provider: Marcos Segovia Reason for consultation: chf in setting of MU Has provider been notified: No DS: Diagnosis Discharge Diagnosis (1) Chronic systolic CHF (congestive heart failure): Status: Acute DS: Summary Hospital Course Hospital Course: 70 year old male with history of CHF, afib on eliquis and h/o alcohol dependence, recent admission for CHF-? Present to the hospital because of mild leg edema possible related to? medication noncompliance, diabetes with significant hyperglycemia- ?as per the patient patient's PCP ordered the medications but he could not fill it- so went to the pharmacy today and came to the hopsital: currently denies any chest pain or shortness of breath or abdominal pain or fever chills or nausea ,vomiting . ?in the ED:? Found to have a leg edema, elevated BNP 2000 range, mild elevation troponin,, MU, severe hyperglycemia /diabetes. ? Patient was given IV Lasix,? insulin for hyperglycemia- requested admission for CHF exacerbation in the setting of MU as well as diabetes with hyperglycemia. ? With insulin? in ED- fingersticks are improving to 300 range, patient has pseudohyponatremia due to hyperglycemia. ? EKG: Seems sinus rhythm. Hospital course:patient was admitted for CHF exacerbation and diabetes with hyperglycemia- secondary to diet noncompliance as well as medication noncompliance( Not taking his diabetes and blood pressure as well as heart failure medications home few days before coming to the hospital)- patient was started on diuretics as well as used insulin for diabetic control initially, subsequently added his home hypoglycemic medications and fingersticks getting better- patient was strongly advised diabetic medication and diet compliance. MU improved with adequate diet, hydration and hyperglycemia control. Patient was seen by Nephrology -recommended to start his home medications, Nephro may arrange outpatient appointment for further management. Patient leg edema seems to be improved-going home with his regular dose of p.o. Lasix, repeat BMP out patiently in 1 week with PCP And nephrology. In addition patient was given CHF and diabetic education in detail. Patient will go home with VNA considering above medication and diet noncompliance. patient needs to follow-up with PCP in 1 week. above management discussed with patient's son in detail length, patient needs to seen possibly PCP outpatient also. unfortunately patient does not comply with diet as well as medications he is high risk for recurrent admissions- also discussed with the son in detail about it. Time Spent with Patient Time attestation: Total time spent providing and/or coordinating discharge services: Discharge coordination time: Greater than 30 minutes Quality: Safe Use of Opioids Does Pt have an Active Cancer Diagnosis on the Problem List?: No Quality: Stroke Does the patient have a stroke diagnosis?: No Physical Exam Vital Signs: Vital Signs: Last Vital Signs Temp 97.8 F 12/19/21 11:31 Pulse 82 12/19/21 11:31 Resp 18 12/19/21 11:31 BP 142/102 H 12/19/21 11:31 Pulse Ox 98 12/19/21 11:31 BMI result Body Mass Index 31.5 ? Appearance: Alert.? Oriented X3.? not in distress.? cvs: rrr, [id number], jvd equivocal. res: clear to auscultation ,no rhonchii or wheezing abd: no rebound or guarding ,nt, bs present. ext pulses present , no cyanosis ,has edema . neuro: axo3 , nonfocal DS: Data Data Completed and Pending Completed studies during hospitalization [Text1]: Procedures Detoxification Services for Substance Abuse Treatment (10/23/21) Labs on day of discharge: Laboratory Results - last 24 hr 12/18/21 12/18/21 12/19/21 15:37 19:22 07:14 POC Glucose 230 H 113 265 H 12/19/21 10:53 POC Glucose 219 H Additional Comments Additional comments: ?CT/CT chest wo con IMPRESSION: Query mild congestive change with edema at the lung bases.? ? Fleischner guidelines were followed. Discharge Plan Discharge Patient Disposition: Home Health Service Discharge Diagnosis: chf exceerbation, mu , dm with hyperglycemia Referrals: [facility] [Other] - 1 Week Name,MD Matthias [Primary Care Provider] - 1 Week Discharge Medications: Continued acetaminophen 500 mg tablet 1 tab PO Q8H PRN (Reason: Pain) 0RF multivitamin Tablet 1 tab PO QPM Qty: 30 0RF carvedilol 25 mg tablet 25 mg PO BID Qty: 60 0RF pravastatin 40 mg tablet 40 mg PO BEDTIME Qty: 30 0RF glipizide 10 mg tablet 10 mg PO BID Qty: 60 0RF thiamine HCl (vitamin B1) 100 mg tablet 100 mg PO QAM Qty: 30 0RF hydralazine 25 mg Tablet 25 mg PO BID Qty: 60 0RF Protocol: Hold for SBP< HOLD for SBP < : 90 chlorthalidone 25 mg tablet 1 tab PO QAM Qty: 30 0RF furosemide [Lasix] 80 mg tablet 80 mg PO BID Qty: 60 0RF amlodipine 10 mg tablet 1 tab PO QAM Qty: 30 0RF metformin 1,000 mg tablet 1,000 mg PO BID Qty: 60 0RF folic acid 1 mg tablet 1 mg PO QAM Qty: 30 0RF digoxin 125 mcg (0.125 mg) Tablet 0.125 mg PO DAILY Qty: 30 0RF betamethasone dipropionate 0.05 % ointment 1 appl topical BID Qty: 1 0RF Protocol: Apply to: Apply to: AFFECTED AREAS acamprosate 333 mg tablet,delayed release (DR/EC) 666 mg PO TID Qty: 60 0RF Eliquis 5 mg Tablet 5 mg PO BID Qty: 60 0RF Entresto 49-51 mg Tablet 1 tab PO BID Qty: 60 0RF Protocol: Hold for SBP< HOLD for SBP < : 90 Changed cyanocobalamin (vitamin B-12) 1,000 mcg tablet 1,000 mcg PO DAILY Qty: 30 0RF aspirin 81 mg tablet,delayed release (DR/EC) 81 mg PO QPM Qty: 30 0RF Held spironolactone 25 mg Tablet 25 mg PO DAILY Qty: 30 0RF Hold Instructions: Resume on 12/22/21. Protocol: Hold for SBP< HOLD for SBP < : 90 Discharge Orders: Discharge Order (Routine); Ordered 12/19/21 Ordered By: Yani Nuñez Diet: advance to usual diet and diabetic diet Activity on Discharge: As tolerated Stand Alone Forms: Patient Portal Discharge page Care Plan Goals: patient was admitted for CHF exacerbation and diabetes with hyperglycemia- secondary to diet noncompliance as well as medication noncompliance( Not taking his diabetes and blood pressure as well as heart failure medications home few days before coming to the hospital)- patient was started on diuretics as well as used insulin for diabetic control initially, subsequently added his home hypoglycemic medications and fingersticks getting better- patient was strongly advised diabetic medication and diet compliance. Patient leg edema seems to be improved-going home with his regular dose of p.o. Lasix, repeat BMP out patiently in 1 week with PCP. In addition patient was given CHF and diabetic education in detail. Patient will go home with VNA considering above medication and diet noncompliance. patient needs to follow-up with PCP in 1 week. above management discussed with patient's son in detail length. Health Concerns: as above. CHF Education: Discussed it in detail about fluid intake, daily weight and if weight increases 2 lb in 1 week call PCP may need diuretic adjustment. Follow diabetic and low-salt diet. Diabetic education was also given- strongly encourage for Diabetic he diet and medication compliance. Plan of Treatment: as above. Assessment: as above. Patient Instructions: Heart Failure (DC), Type 2 Diabetes Management for Adults (DC)
--- NOTE | 2021-12-19 13:19 | P.F2F_ITS ---
Service Date Service Date: 12/19/21 Encounter Date of encounter: 12/19/21 Encounter: dm with Hyperglycemia, CHF exacerbation secondary to diet and medication noncompliance. Reasons for Services Signs and symptoms assessed: Leg edema, hyperglycemia Reason for retirement: diabetic teaching, monitoring of unstable blood s ugar, medication management, medication treatment and teach disease management MD Overseeing Care: Matthias Name Homebound: Leaving the home is medically contraindicated at this time without the asist of a device and/or another person due th the listed conditions above and below. Reason homebound: weakness related to hospital stay Certification: Based on the above findings, I certify that this patient is confined to the home and needs intermittent retirement care, physical therapy and/or speech therapy, or continues to need occupational therapy. The patient is under my care, and I have initiated the establishment of the plan of care. The patient will be followed by a physician who will periodically review the plan of care.
[2021-12-19] MEDS: metFORMIN HCl 1,000 MG TABLET 1000 MG PO (14:32)
== END 2021-12-16 08:02 | disposition home health service (06) | DRG 291 ==
LOC: HO.ED 11:10 → HO.EDOVER 12:33 → HO.IMC 12-18
PROVIDERS: Admitting Provider Internal Medicine; Emergency Provider Emergency Medicine; PCP Internal Medicine Geriatric Medicine; Visit Provider Internal Medicine
DX: I11.0 Hypertensive heart disease with heart failure (principal); I50.23 Acute on chronic systolic (congestive) heart failure; I48.20 Chronic atrial fibrillation, unspecified; N17.9 Acute kidney failure, unspecified; E11.65 Type 2 diabetes mellitus with hyperglycemia; E78.5 Hyperlipidemia, unspecified; F10.21 Alcohol dependence, in remission; Z20.822 Contact with and (suspected) exposure to COVID-19; Z91.11 Patient's noncompliance with dietary regimen; Z91.14 Patient's other noncompliance with medication regimen; Z86.73 Personal history of transient ischemic attack (TIA), and cerebral infarction without residual deficits; Z87.891 Personal history of nicotine dependence; Z79.82 Long term (current) use of aspirin; Z79.84 Long term (current) use of oral hypoglycemic drugs; Z79.01 Long term (current) use of anticoagulants; Z79.899 Other long term (current) drug therapy
CPT/HCPCS: 36415; 71045; 71250; 80048; 80076; 80162; 80307; 81001; 82077; 82947; 83036; 83690; 83735; 83880; 84484; 85025; 85610; 85730; 87635; 93005; 96374; 96375; 96376; 99285; J1940

== ENCOUNTER 2022-04-13 15:54 | Emergency (ER) | payer OTHER, SELFPAY ==
--- NOTE | ~2022-04-13 | CT_ITS ---
EXAMINATION: CT HEAD WITHOUT CONTRAST CT CERVICAL SPINE WITHOUT CONTRAST CLINICAL INFORMATION: Fall. On blood thinners. COMPARISON: CT head 09/29/2021 TECHNIQUE: Imaging was performed from the skull base to vertex without intravenous administration of contrast. In addition, helical noncontrast CT imaging was acquired through the cervical spine and source images were reviewed along with axial reconstructions and sagittal and coronal MPRs. [This CT examination was performed using dose optimization techniques as appropriate, variously including the following: *Automated exposure control *Adjustment of mA and/or kV according to patient size (this includes techniques or standardized protocols for targeted exams where dose is matched to indication/reason for exam; i.e. extremities or head) *Use of iterative reconstruction technique] DLP: 10.25+650.05+527.45 mGy-cm FINDINGS: HEAD: No intracranial mass, hemorrhage, or midline shift is visualized. The ventricles and sulci are proportional. No extra-axial collections are identified. The paranasal sinuses and mastoid air cells are well aerated. CERVICAL SPINE: There is no evidence of acute cervical spine fracture. Vertebral bodies remain normal in height. Cervical vertebrae have normal alignment. There is multilevel degenerative spondylosis of the cervical spine with disc height narrowing and endplate spurs and facet joint arthrosis No pre- or paravertebral soft tissue abnormality is identified. Limited assessment of the lung apices is unremarkable. CT/CT head/brain wo IV con IMPRESSION: 1. No acute intracranial pathology. 2. No CT evidence of acute cervical spine fracture or traumatic subluxation
--- NOTE | ~2022-04-13 | CT_ITS ---
EXAMINATION: CT HEAD WITHOUT CONTRAST CT CERVICAL SPINE WITHOUT CONTRAST CLINICAL INFORMATION: Fall. On blood thinners. COMPARISON: CT head 09/29/2021 TECHNIQUE: Imaging was performed from the skull base to vertex without intravenous administration of contrast. In addition, helical noncontrast CT imaging was acquired through the cervical spine and source images were reviewed along with axial reconstructions and sagittal and coronal MPRs. [This CT examination was performed using dose optimization techniques as appropriate, variously including the following: *Automated exposure control *Adjustment of mA and/or kV according to patient size (this includes techniques or standardized protocols for targeted exams where dose is matched to indication/reason for exam; i.e. extremities or head) *Use of iterative reconstruction technique] DLP: 10.25+650.05+527.45 mGy-cm FINDINGS: HEAD: No intracranial mass, hemorrhage, or midline shift is visualized. The ventricles and sulci are proportional. No extra-axial collections are identified. The paranasal sinuses and mastoid air cells are well aerated. CERVICAL SPINE: There is no evidence of acute cervical spine fracture. Vertebral bodies remain normal in height. Cervical vertebrae have normal alignment. There is multilevel degenerative spondylosis of the cervical spine with disc height narrowing and endplate spurs and facet joint arthrosis No pre- or paravertebral soft tissue abnormality is identified. Limited assessment of the lung apices is unremarkable. CT/CT cervical spine wo IV con IMPRESSION: 1. No acute intracranial pathology. 2. No CT evidence of acute cervical spine fracture or traumatic subluxation
--- NOTE | ~2022-04-13 | CT_ITS ---
EXAMINATION: CT CHEST WITHOUT CONTRAST CLINICAL INFORMATION: Fall. Left posterior chest pain. COMPARISON: CT chest 12/16/2021 TECHNIQUE: Multidetector volumetric CT imaging of the chest was done. Axial MIP volume rendering provided. Sagittal and coronal reformatted images were obtained. This CT examination was performed using dose optimization techniques as appropriate, variously including the following: *Automated exposure control *Adjustment of mA and/or kV according to patient size (this includes techniques or standardized protocols for targeted exams where dose is matched to indication/reason for exam; i.e. extremities or head) *Use of iterative reconstruction technique DLP: 343.87+4.87+4.87 mGy-cm FINDINGS: LUNGS: The lungs are clear with no evidence of inflammation or nodules. MEDIASTINUM: Heart size is enlarged. No pericardial effusion. There are heavy calcification of coronary arteries. There are vascular calcifications of the wall of aorta. There is no aortic aneurysm. No mediastinal mass or significant lymphadenopathy. No hematoma or fluid collections. PLEURA: There is no pleural effusion. No pleural mass or thickening. AXILLA: No lymphadenopathy. UPPER ABDOMEN: Unremarkable. OSSEOUS STRUCTURES: Unremarkable. CT/CT chest wo IV con IMPRESSION: 1. No acute abnormality. 2. Cardiomegaly. Fleischner guidelines were followed.
[2022-04-13 16:28] VITALS: BP 139/64; BP 96/68; PULSE 102; PULSE 69; RESP 20; TEMP 36.8; O2SAT 94; BMI 32.1
--- NOTE | 2022-04-13 17:14 | ECG_ITS ---
Test Reason : Fall Blood Pressure : / mmHG Vent. Rate : 070 BPM Atrial Rate : 000 BPM P-R Int : 000 ms QRS Dur : 176 ms QT Int : 460 ms P-R-T Axes : 000 -04 174 degrees QTc Int : 496 ms Atrial fibrillation Left bundle branch block Abnormal ECG When compared with ECG of 16-DEC-2021 07:46, Atrial fibrillation has replaced Atrial flutter QRS axis Shifted right T wave inversion now evident in Inferior leads T wave inversion more evident in Lateral leads Referred By: Roxane Serna Electronically Signed By:JAKE RIDLEY
--- NOTE | 2022-04-13 17:15 | ED_ITS ---
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 Patient states that he was at a doctor's appointment and was leaving the office when he became dizzy and fell without loss of consciousness. Patient states he is on blood thinners and his last alcoholic drink was 3 days ago. He denies any seizure activity when abstaining from alcohol. Related Data Home Medications Medication Instructions Recorded Confirmed acetaminophen 500 mg tablet 1 tab PO Q8H PRN Pain 12/16/21 12/16/21 Previous Rx's Medication Instructions Recorded spironolactone 25 mg tablet 25 mg PO DAILY #30 tabs 10/29/21 acamprosate 333 mg tablet,delayed 666 mg PO TID #60 tabs 12/19/21 release amlodipine 10 mg tablet 1 tab PO QAM #30 tabs 12/19/21 apixaban 5 mg tablet (Eliquis) 5 mg PO BID #60 tabs 12/19/21 aspirin 81 mg tablet,delayed 81 mg PO QPM #30 tabs 12/19/21 release betamethasone dipropionate 0.05 % 1 appl topical BID #1 g 12/19/21 topical ointment carvedilol 25 mg tablet 25 mg PO BID #60 tabs 12/19/21 chlorthalidone 25 mg tablet 1 tab PO QAM #30 tabs 12/19/21 cyanocobalamin (vitamin B-12) 1,000 mcg PO DAILY #30 tabs 12/19/21 1,000 mcg tablet digoxin 125 mcg (0.125 mg) tablet 0.125 mg PO DAILY #30 tabs 12/19/21 folic acid 1 mg tablet 1 mg PO QAM #30 tabs 12/19/21 furosemide 80 mg tablet (Lasix) 80 mg PO BID #60 tabs 12/19/21 glipizide 10 mg tablet 10 mg PO BID #60 tabs 12/19/21 hydralazine 25 mg tablet 25 mg PO BID #60 tabs 12/19/21 metformin 1,000 mg tablet 1,000 mg PO BID #60 tabs 12/19/21 multivitamin 1 tab PO QPM #30 tabs 12/19/21 pravastatin 40 mg tablet 40 mg PO BEDTIME #30 tabs 12/19/21 sacubitril 49 mg-valsartan 51 mg 1 tab PO BID #60 tabs 12/19/21 tablet (Entresto) thiamine HCl (vitamin B1) 100 mg 100 mg PO QAM #30 tabs 12/19/21 tablet Allergies Allergy/AdvReac Type Severity Reaction Status Date / Time No Known Allergies Allergy Verified 09/22/21 12:18 Review of Systems Review of Systems: Pertinent positives and negatives as stated in HPI 10 point review of systems is otherwise negative. [facility] Past Medical History Source: nursing notes reviewed Medical History Alcohol use disorder, severe, dependence Atrial fibrillation with rapid ventricular response Atrial fibrillation with slow ventricular response Cardiomyopathy CHF (congestive heart failure) Chronic atrial fibrillation Chronic systolic CHF (congestive heart failure) Depressive disorder Diabetes HTN (hypertension) LBBB (left bundle branch block) Family History Family History Mother HTN (hypertension) Father CAD (coronary artery disease) HTN (hypertension) Social History Social History Household Members: None Housing: Apartment Do you presently have visiting nurse or other home services: No Alcohol intake: current Alcohol intake frequency: former alcohol drinker Alcohol type: hard liquor Patient Tobacco Use Status: Former Tobacco user Tobacco use type: Cigarette Advance Directives: Yes Advance Directives on File: Yes Advance Directives Date on File: 06/27/21 service: No Current occupational status: retired Physical Exam Vital Signs: Vital Signs: Last Vital Signs Temp 98.3 F 04/13/22 16:28 Pulse 69 04/13/22 16:28 Resp 20 04/13/22 16:28 BP 139/64 04/13/22 16:28 Pulse Ox 94 04/13/22 16:28 O2 Del Method 04/13/22 16:28 BMI result Body Mass Index 32.1 VITAL SIGNS: Reviewed. GENERAL: Well developed, well nourished, in no acute distress. HEAD: Normocephalic/atraumatic, But pain on palpation to left occiput EYES: PERRLA, EOMI EARS: Ext canals without abnormality OROPHARYNX: no oral lesions noted, posterior pharynx clear NECK: Supple, no adenopathy LUNGS: Normal breath sounds. No adventitious sounds or accessory muscle use. SpO2<94>; CHEST WALL: Patient is experiencing left posterior chest wall pain on palpation without noted deformity or crepitus CARDIOVASCULAR: Regular rate and rhythm without noted murmurs, no JVD or lower extremity edema. ABDOMEN: Soft, non-tender, non-distended with bowel sounds. BACK: no midline vertebral tenderness or step-offs noted MUSCULOSKELETAL: No tenderness, deformities, or effusions noted on gross inspection. EXTREMITIES: No cyanosis, clubbing or edema. SKIN: Inspection of the skin reveals no rashes NEUROLOGIC: Alert and oriented x 4. Strength and sensation to light touch were grossly intact x 4. Course Course Course Narrative: 71-year-old male with history and clinical presentation suggestive of possible alcohol related dizziness and unsteadiness, but he has significant underlying medical conditions and will evaluate for any evidence of intracranial bleed, infection, acute anemia. Also, will evaluate for any rib fractures from the fall. Review of all investigations negative for acute findings other than chronically stable BNP, did provide an additional dose of Lasix, patient was seen by his primary care provider today but encouraged him to follow-up by calling the office in the morning. Patient is otherwise hemodynamically stable for discharge. MDM - Fall Lab Data Result diagrams: 04/13/22 17:53 04/13/22 17:53 Labs: Lab Results 04/13/22 04/13/22 04/13/22 Range/Units 17:53 17:53 17:53 WBC 8.5 (4.8-10.8) X10*3/uL RBC 4.82 (4.60-5.80) X10*6/uL Hgb 13.4 L (14.0-18.0) g/dl Hct 42.3 (42.0-52.0) % MCV 87.8 (80.0-98.0) fL MCH 27.8 (27.0-33.0) pg MCHC 31.7 (31.0-36.0) g/dl RDW 17.5 H (11.0-16.0) % Plt Count 227 D (160-400) X10*3/uL MPV 10.1 (9.4-12.4) fL Immature Gran % (Auto) 0.4 (0.0-0.4) % Neut % (Auto) 72.5 (45-73) % Lymph % (Auto) 14.1 L (20-40) % Caswell % (Auto) 11.2 H (2-11) % Eos % (Auto) 1.3 (0-4) % Baso % (Auto) 0.5 (0-2) % Lymph # (Auto) 1.2 (1.2-4.9) X10*3/uL [place]well # (Auto) 1.0 (0.1-1.2) X10*3/uL Eos # (Auto) 0.1 (0.0-0.4) X10*3/uL Baso # (Auto) 0.0 (0.0-0.2) X10*3/uL Abs Immat Gran (auto) 0.03 (0.00-0.03) X10*3/uL Absolute Neuts (auto) 6.2 (2.0-8.3) x10*3/uL Absolute Nucleated RBC 0.000 (0.0-0.012) X10*3/uL Nucleated RBC % (auto) 0.0 (0.0-0.2) /100WBC PT 15.6 H (10.0-13.1) SEC INR 1.3 H (0.9-1.1) Sodium 146 H (135-145) mmol/L Potassium 3.4 (3.3-5.1) mmol/L Chloride 100 (96-108) mmol/L Carbon Dioxide 32 H (22-29) mmol/L Anion Gap 17 (12-20) BUN 20 H (9-16) mg/dL Creatinine 1.02 (0.5-1.4) mg/dL Estim Creat Clear Calc 86.3 Estimated GFR > 60 Random Glucose 108 D (60-115) mg/dL Calcium 8.5 D (8.4-10.2) mg/dL Total Bilirubin 0.7 (0.0-1.0) mg/dL AST 36 D (5-37) U/L ALT 27 (0-40) U/L Alkaline Phosphatase 119 H D (39-117) U/L Troponin I High Sens (<3.5-35.0) ng/L B-Natriuretic Peptide (<100) pg/mL Total Protein 6.4 L (6.5-8.0) g/dL Albumin 3.6 (3.5-5.0) g/dL 04/13/22 Range/Units 17:53 WBC (4.8-10.8) X10*3/uL RBC (4.60-5.80) X10*6/uL Hgb (14.0-18.0) g/dl Hct (42.0-52.0) % MCV (80.0-98.0) fL MCH (27.0-33.0) pg MCHC (31.0-36.0) g/dl RDW (11.0-16.0) % Plt Count (160-400) X10*3/uL MPV (9.4-12.4) fL Immature Gran % (Auto) (0.0-0.4) % Neut % (Auto) (45-73) % Lymph % (Auto) (20-40) % Caswell % (Auto) (2-11) % Eos % (Auto) (0-4) % Baso % (Auto) (0-2) % Lymph # (Auto) (1.2-4.9) X10*3/uL Caswell # (Auto) (0.1-1.2) X10*3/uL Eos # (Auto) (0.0-0.4) X10*3/uL Baso # (Auto) (0.0-0.2) X10*3/uL Abs Immat Gran (auto) (0.00-0.03) X10*3/uL Absolute Neuts (auto) (2.0-8.3) x10*3/uL Absolute Nucleated RBC (0.0-0.012) X10*3/uL Nucleated RBC % (auto) (0.0-0.2) /100WBC PT (10.0-13.1) SEC INR (0.9-1.1) Sodium (135-145) mmol/L Potassium (3.3-5.1) mmol/L Chloride (96-108) mmol/L Carbon Dioxide (22-29) mmol/L Anion Gap (12-20) BUN (9-16) mg/dL Creatinine (0.5-1.4) mg/dL Estim Creat Clear Calc Estimated GFR Random Glucose (60-115) mg/dL Calcium (8.4-10.2) mg/dL Total Bilirubin (0.0-1.0) mg/dL AST (5-37) U/L ALT (0-40) U/L Alkaline Phosphatase (39-117) U/L Troponin I High Sens 18.9 D (<3.5-35.0) ng/L B-Natriuretic Peptide 845 H (<100) pg/mL Total Protein (6.5-8.0) g/dL Albumin (3.5-5.0) g/dL ECG Data Attestation: I personally reviewed and interpreted this ECG as follows: Prior ECG tracings: available for review Interpretation: Atrial fibrillation, HR-70, no STEMI Discharge Plan Discharge Clinical Impression: Fall, Atrial fibrillation, CHF (congestive heart failure), Diabetes Patient Disposition: Home, Self-Care Instructions: Fall Prevention for Older Adults (ED), Diabetes and Your Skin (ED), Heart Failure (ED), A-fib (Atrial Fibrillation) (ED) Additional Instructions: 1. Reanudar todos los medicamentos caseros seg?n lo prescrito. 2. Por favor, elle de beber alcohol. 3. Llame al consultorio de foreman proveedor de atenci?n primaria para anastacia reevaluaci?n y un manejo ambulatorio adicional. Regrese a la sesar de emergencias si los s?ntomas empeoran. Prescriptions: No Action spironolactone 25 mg Tablet 25 mg PO DAILY Qty: 30 0RF Hold Instructions: Resume on 12/22/21. Protocol: Hold for SBP< HOLD for SBP < : 90 acetaminophen 500 mg tablet 1 tab PO Q8H PRN (Reason: Pain) multivitamin Tablet 1 tab PO QPM Qty: 30 0RF carvedilol 25 mg tablet 25 mg PO BID Qty: 60 0RF pravastatin 40 mg tablet 40 mg PO BEDTIME Qty: 30 0RF glipizide 10 mg tablet 10 mg PO BID Qty: 60 0RF cyanocobalamin (vitamin B-12) 1,000 mcg tablet 1,000 mcg PO DAILY Qty: 30 0RF thiamine HCl (vitamin B1) 100 mg tablet 100 mg PO QAM Qty: 30 0RF hydralazine 25 mg Tablet 25 mg PO BID Qty: 60 0RF Protocol: Hold for SBP< HOLD for SBP < : 90 chlorthalidone 25 mg tablet 1 tab PO QAM Qty: 30 0RF aspirin 81 mg tablet,delayed release (DR/EC) 81 mg PO QPM Qty: 30 0RF furosemide [Lasix] 80 mg tablet 80 mg PO BID Qty: 60 0RF amlodipine 10 mg tablet 1 tab PO QAM Qty: 30 0RF metformin 1,000 mg tablet 1,000 mg PO BID Qty: 60 0RF folic acid 1 mg tablet 1 mg PO QAM Qty: 30 0RF digoxin 125 mcg (0.125 mg) Tablet 0.125 mg PO DAILY Qty: 30 0RF betamethasone dipropionate 0.05 % ointment 1 appl topical BID Qty: 1 0RF Protocol: Apply to: Apply to: AFFECTED AREAS acamprosate 333 mg tablet,delayed release (DR/EC) 666 mg PO TID Qty: 60 0RF Eliquis 5 mg Tablet 5 mg PO BID Qty: 60 0RF Entresto 49-51 mg Tablet 1 tab PO BID Qty: 60 0RF Protocol: Hold for SBP< HOLD for SBP < : 90 Referrals: Name,MD Matthias [Primary Care Provider] - Print Language: Citizen Of [place]
[2022-04-13 17:58] LABS: MANUAL DIFF FLAG NO
[2022-04-13 17:59] LABS: Basophils Percent Auto 0.5 % (0-2); Eosinophils Absolute Auto 0.1 X10*3/uL (0.0-0.4); Eosinophils Percent Auto 1.3 % (0-4); Hematocrit 42.3 % (42.0-52.0); Hemoglobin 13.4 g/dl (14.0-18.0); Imm Gran Abs Auto 0.03 X10*3/uL (0.00-0.03); Imm Gran Pct Auto 0.4 % (0.0-0.4); Lymphocytes Absolute Auto 1.2 X10*3/uL (1.2-4.9); Lymphocytes Percent Auto 14.1 % (20-40); Mean Corpuscular HGB Conc 31.7 g/dl (31.0-36.0); Mean Corpuscular Hemoglobin 27.8 pg (27.0-33.0); Mean Corpuscular Volume 87.8 fL (80.0-98.0); Mean Platelet Volume 10.1 fL (9.4-12.4); Monocytes Percent Auto 11.2 % (2-11); Neutrophils Absolute Auto 6.2 x10*3/uL (2.0-8.3); Neutrophils Percent Auto 72.5 % (45-73); Platelet Count 227 X10*3/uL (160-400); Red Blood Count 4.82 X10*6/uL (4.60-5.80); Red Cell Distribution Width 17.5 % (11.0-16.0); White Blood Count 8.5 X10*3/uL (4.8-10.8)
[2022-04-13 18:21] LABS: Alanine Aminotransferase 27 U/L (0-40); Albumin Level 3.6 g/dL (3.5-5.0); Alkaline Phosphatase 119 U/L (39-117); Anion Gap 17 (12-20); Aspartate Amino Transferase 36 U/L (5-37); Bilirubin Total 0.7 mg/dL (0.0-1.0); Blood Urea Nitrogen 20 mg/dL (9-16); Calcium 8.5 mg/dL (8.4-10.2); Carbon Dioxide 32 mmol/L (22-29); Chloride 100 mmol/L (96-108); Creatinine Clr Calc Pharmacy 86.3; Estimated Glomerular Filt Rate > 60; Glucose Random 108 mg/dL (60-115); Potassium 3.4 mmol/L (3.3-5.1); Sodium 146 mmol/L (135-145); Total Protein 6.4 g/dL (6.5-8.0)
[2022-04-13 18:26] LABS: INTERNATIONAL NORM RATIO 1.3 (0.9-1.1); Prothrombin Time 15.6 SEC (10.0-13.1)
[2022-04-13 18:27] LABS: Troponin-I High Sensitivity 18.9 ng/L (<3.5-35.0)
[2022-04-13 21:30] LABS: B Type Natriuretic Peptide 845 pg/mL (<100)
[2022-04-13] MEDS: Furosemide 20 MG TABLET PO (21:46)
== END 2022-04-13 21:54 | disposition home or self-care (01) ==
PROVIDERS: Emergency Provider Student in an Organized Health Care Education/Training Program; PCP Internal Medicine Geriatric Medicine
DX: R26.81 Unsteadiness on feet (principal); R42 Dizziness and giddiness; I48.20 Chronic atrial fibrillation, unspecified; I11.0 Hypertensive heart disease with heart failure; I50.22 Chronic systolic (congestive) heart failure; E11.9 Type 2 diabetes mellitus without complications; Z91.81 History of falling; F10.20 Alcohol dependence, uncomplicated; Y90.9 Presence of alcohol in blood, level not specified; Z79.82 Long term (current) use of aspirin; Z79.899 Other long term (current) drug therapy; Z79.02 Long term (current) use of antithrombotics/antiplatelets; Z87.891 Personal history of nicotine dependence
CPT/HCPCS: 36415; 70450; 71250; 72125; 80053; 83880; 84484; 85025; 85610; 93005; 99283; 99284

== ENCOUNTER 2022-09-16 12:47 | Inpatient (IN) | payer OTHER, SELFPAY ==
--- NOTE | ~2022-09-16 | XR_ITS ---
EXAMINATION: XR ABDOMEN KUB CLINICAL INDICATION: Evaluate tube check COMPARISON: None TECHNIQUE: AP view of the abdomen. FINDINGS: NG tube tip overlying the region of the antrum of the stomach. The bowel pattern is nonobstructing XR/XR KUB IMPRESSION: NG tube tip overlying the antrum of the stomach
--- NOTE | ~2022-09-16 | XR_ITS ---
EXAMINATION: XR CHEST CLINICAL INFORMATION: Extubation COMPARISON: 09/21/2022 TECHNIQUE: Frontal view of the chest was obtained. FINDINGS: The heart is enlarged. There is mild pulmonary vascular congestion. There are increased and pleural effusions when compared to the prior study. ET tube is no longer present. Right IJ line remains in place with its tip at the SVC/RA junction. XR/XR chest 1V IMPRESSION: Cardiomegaly with mild pulmonary vascular congestion and increasing pleural effusions.
--- NOTE | ~2022-09-16 | CT_ITS ---
EXAMINATION: CT HEAD WITHOUT CONTRAST CLINICAL INFORMATION: Altered mental status, EtOH. COMPARISON: Head CT scan dated 04/13/2022. TECHNIQUE: Contiguous axial imaging was performed from the skull base to vertex without intravenous administration of contrast. Coronal and sagittal reformatted images were obtained. This CT examination was performed using dose optimization techniques as appropriate, variously including the following: *Automated exposure control *Adjustment of mA and/or kV according to patient size (this includes techniques or standardized protocols for targeted exams where dose is matched to indication/reason for exam; i.e. extremities or head) *Use of iterative reconstruction technique DLP: 579 mGy-cm FINDINGS: Small low-attenuation focus is seen superiorly in the left frontal lobe measuring up to 1.4 cm in transverse dimension (image 40, series 2). No acute hemorrhage. There is no mass effect or midline shift. There is mild widening of the cortical sulci and associated ventriculomegaly. The lateral ventricles are symmetrical. The third and fourth ventricles are in their normal midline position. The basilar and prepontine cisterns are unremarkable. Sections through the bony calvarium are unremarkable. The orbits are intact. The paranasal sinuses are clear. The mastoid air cells are clear. CT/CT head/brain wo IV con IMPRESSION: Left frontal age-indeterminate infarct. This was not seen on the most recent 2021 study. No other significant abnormality.
--- NOTE | ~2022-09-16 | XR_ITS ---
EXAMINATION: XR ABDOMEN KUB CLINICAL INDICATION: Rule out foreign body. COMPARISON: None TECHNIQUE: AP view of the abdomen. FINDINGS: The bowel gas pattern is normal with no evidence of ileus or obstruction. No unusual soft tissue calcifications are noted. The bones are unremarkable. XR/XR KUB IMPRESSION: Nonobstructive bowel gas pattern. No radiopaque foreign body.
--- NOTE | ~2022-09-16 | XR_ITS ---
EXAMINATION: XR CHEST CLINICAL INFORMATION: Aspiration COMPARISON: 09/24/2022 TECHNIQUE: Frontal view of the chest was obtained. FINDINGS: Right internal jugular central catheter terminates in the right atrium. Small bilateral pleural effusions with accompanying atelectasis are similar to prior. Stable prominence of the cardiac silhouette. Pulmonary venous congestion without overt edema. No acute osseous abnormalities. XR/XR chest 1V IMPRESSION: Small bilateral pleural effusions with accompanying atelectasis, similar to prior.
--- NOTE | ~2022-09-16 | US_ITS ---
EXAMINATION: US ABDOMEN LIMITED CLINICAL INFORMATION: Elevated LFTs. AMS.. COMPARISON: None TECHNIQUE: Real-time imaging of the right upper quadrant abdominal viscera. FINDINGS: There are limitations to the study due to inability to cooperate. PANCREAS: Normal. LIVER: There is some limitation in visualization. The liver contour is normal. Parenchymal echogenicity is normal. No focal hepatic lesion. There is no intrahepatic biliary duct dilatation seen. GALLBLADDER: Normal. The gallbladder is physiologically distended without evidence of stones, sludge, polyps, wall thickening or pericholecystic fluid. COMMON BILE DUCT: Normal in caliber measuring 0.3 cm in diameter. RIGHT KIDNEY: Normal. No hydronephrosis. No renal calculi or focal parenchymal lesions. The kidney measures 12.3 cm in maximum dimension. FREE FLUID: None. US/US abdomen limited IMPRESSION: No significant abnormality appreciated with limitations as described.
--- NOTE | ~2022-09-16 | XR_ITS ---
EXAMINATION: XR CHEST CLINICAL INFORMATION: Intubation, right central line COMPARISON: 09/16/2022 TECHNIQUE: Frontal view of the chest was obtained. FINDINGS: Endotracheal tube tip lies 6.6 cm above the gisel. Enteric tube tip lies in the region of the midesophagus, approximately 10 cm above the gastroesophageal junction. Right IJ central line tip lies in the region of the cavoatrial junction. Lung volumes are symmetric. There are suspected regions of opacity at the medial lung bases. No evidence of pneumothorax or significant pleural effusion. No overt pulmonary edema. Cardiac silhouette remains enlarged. No acute osseous findings are seen. XR/XR chest 1V IMPRESSION: 1. Endotracheal tube tip 6.6 cm above the gisel. 2. Enteric tube tip lies in the region of the midesophagus, approximately 10 cm above the gastroesophageal junction; advancement recommended. 3. Right IJ central line tip in the region of the cavoatrial junction. 4. Suspect regions of medial bibasilar opacity.
--- NOTE | ~2022-09-16 | CT_ITS ---
EXAMINATION: CT HEAD WITHOUT CONTRAST CLINICAL INFORMATION: Altered mentation COMPARISON: MRI 10/05/2022, CT 09/16/2022 TECHNIQUE: Contiguous axial imaging was performed from the skull base to vertex without intravenous administration of contrast. This CT examination was performed using dose optimization techniques as appropriate, variously including the following: *Automated exposure control *Adjustment of mA and/or kV according to patient size (this includes techniques or standardized protocols for targeted exams where dose is matched to indication/reason for exam; i.e. extremities or head) *Use of iterative reconstruction technique DLP: 694 mGy-cm FINDINGS: There is no evidence of acute intracranial hemorrhage. Redemonstrated region of evolving acute infarct in the left frontal lobe with loss of kwok-white differentiation which correspond to the abnormality on recent MRI. Smaller focus of evolving acute infarct in the right peritrigonal white matter is also noted. Punctate acute infarct in the left cerebellum as not as well-seen as on recent MRI. No abnormal mass-effect or midline shift is seen. Kwok to white matter differentiation is otherwise well preserved. No extra-axial fluid collections are identified. The ventricles are normal in size. There is mild periventricular white matter hypoattenuation consistent with chronic small vessel ischemic disease. Moderate volume loss is noted. The osseous structures and soft tissues are normal. The mastoid air cells and visualized portions of the paranasal sinuses are well-aerated. CT/CT head/brain wo IV con IMPRESSION: Redemonstrated evolving acute infarcts in the left frontal lobe and right peritrigonal white matter. Punctate acute infarct in the left cerebellum is not as well-seen as on recent MRI. No acute intracranial hemorrhage.
--- NOTE | ~2022-09-16 | XR_ITS ---
EXAMINATION: XR CHEST CLINICAL INFORMATION: Endotracheal tube COMPARISON: Earlier same date TECHNIQUE: Frontal view of the chest was obtained. FINDINGS: Endotracheal tube terminates 5.6 cm above the gisel. Enteric tube courses below the diaphragm. Right IJ central venous catheter terminates in the right atrium. Small bilateral pleural effusions and accompanying atelectasis unchanged. Cardiomegaly. No acute osseous abnormalities. XR/XR chest 1V IMPRESSION: * Endotracheal tube terminates 5.6 cm above the gisel. * Stable small bilateral pleural effusions and accompanying atelectasis.
--- NOTE | ~2022-09-16 | XR_ITS ---
EXAMINATION: XR ABDOMEN KUB CLINICAL INDICATION: Patient pulled feeding tube out. COMPARISON: KUB 09/21/2022 TECHNIQUE: AP view of the abdomen. FINDINGS: The NG tube is out. The bowel gas pattern is nonspecific with no bowel distention. No organomegaly. No radiopaque calculi. No gross bony abnormality. There is a electrode within the lower pelvis likely within the urinary bladder. XR/XR abdomen 1V IMPRESSION: The NG tube has been removed. There is an electrode wire within the pelvis likely within the urinary bladder.
--- NOTE | ~2022-09-16 | CT_ITS ---
EXAMINATION: CT HEAD WITHOUT CONTRAST CLINICAL INFORMATION: Encephalopathy COMPARISON: 09/18/2022 TECHNIQUE: Contiguous axial imaging was performed from the skull base to vertex without intravenous administration of contrast. This CT examination was performed using dose optimization techniques as appropriate, variously including the following: *Automated exposure control *Adjustment of mA and/or kV according to patient size (this includes techniques or standardized protocols for targeted exams where dose is matched to indication/reason for exam; i.e. extremities or head) *Use of iterative reconstruction technique DLP: 719 mGy-cm FINDINGS: There is no evidence of acute intracranial hemorrhage. Redemonstrated evolving acute infarcts in the left frontal lobe and right peritrigonal white matter. No abnormal mass-effect or midline shift is seen. Kwok to white matter differentiation is otherwise well preserved. No extra-axial fluid collections are identified. The ventricles are normal in size. There is mild periventricular white matter hypoattenuation consistent with chronic small vessel ischemic disease. Moderate volume loss is noted. The osseous structures and soft tissues are normal. The mastoid air cells and visualized portions of the paranasal sinuses are well-aerated. CT/CT head/brain wo IV con IMPRESSION: Redemonstrated evolving acute infarcts in the left frontal lobe and right peritrigonal white matter. No new acute findings identified.
--- NOTE | ~2022-09-16 | CT_ITS ---
EXAMINATION: CT ABDOMEN AND PELVIS WITH CONTRAST CLINICAL INFORMATION: Metabolic acidosis. COMPARISON: None TECHNIQUE: Multidetector volumetric images were obtained from the superior aspect of the liver through the pubic symphysis following administration 85 mL of Omnipaque 350 intravenous contrast. Sagittal and coronal reformatted images were obtained on the technologist's workstation. Oral contrast: No This CT examination was performed using dose optimization techniques as appropriate, variously including the following: *Automated exposure control *Adjustment of mA and/or kV according to patient size (this includes techniques or standardized protocols for targeted exams where dose is matched to indication/reason for exam; i.e. extremities or head) *Use of iterative reconstruction technique DLP: 827 mGy-cm FINDINGS: LUNG BASES: Moderate bilateral pleural effusions and accompanying atelectasis. Cardiomegaly. Triple vessel coronary calcifications. LIVER, GALLBLADDER, AND BILIARY TREE: The liver is normal in size, shape, and attenuation. No focal hepatic lesion or biliary ductal dilatation is present. The gallbladder is unremarkable with no evidence of radiopaque gallstones, gallbladder wall thickening, or obvious pericholecystic inflammatory changes. PANCREAS: Unremarkable. SPLEEN: There is wedge-shaped peripheral hypoenhancement in the superior spleen into areas suggestive of infarcts. Spleen is normal size. ADRENAL GLANDS: Unremarkable. KIDNEYS AND URETERS: Patchy heterogeneous hypoenhancement in the lateral interpolar cortex of the right kidney. Left kidney enhances normally. There our simple cyst in the lower poles of each kidney which are benign. No follow-up recommended. No hydronephrosis. No urinary calculi. BLADDER: Decompressed by Dutton catheter. Prominent perivesicular fat stranding. GASTROINTESTINAL TRACT: Nasogastric tube terminates in the gastric body. No intestinal obstruction or inflammation. Normal appendix. ABDOMINAL WALL: No significant hernia is appreciated. LYMPH NODES: Normal. VASCULAR: Aorta is atherosclerotic but normal caliber. Patent venous structures PELVIC VISCERA: Moderate prostatomegaly. OSSEOUS STRUCTURES: No acute or suspicious osseous abnormalities. CT/CT abdomen pelvis w IV con IMPRESSION: * Patchy hypoenhancement in the lateral interpolar cortex of the right kidney suspicious for focal pyelonephritis/lobar nephronia. There is also prominent perivesicular fat stranding about the collapsed bladder, greater than expected in the presence of a Dutton catheter suspicious for superimposed cystitis. * Wedge-shaped peripheral hypoenhancement within the superior spleen suggestive of splenic infarcts. * Moderate prostatomegaly. * Moderate bilateral pleural effusions and accompanying atelectasis. * Cardiomegaly and triple vessel coronary calcifications.
--- NOTE | ~2022-09-16 | XR_ITS ---
EXAMINATION: XR CHEST CLINICAL INFORMATION: Hypoxia. COMPARISON: None TECHNIQUE: Frontal view of the chest was obtained. FINDINGS: The patient is leaning towards the right. The lungs are expanded and clear. The heart size is enlarged. Pulmonary vascularity is normal. No gross bony abnormality seen. XR/XR chest 1V IMPRESSION: Mild cardiomegaly. No acute process seen.
--- NOTE | ~2022-09-16 | MR_ITS ---
MRI OF THE BRAIN WITHOUT IV CONTRAST INDICATION: CVA. COMPARISON: Head CT September 16, 2022. Brain MRI October 2021. TECHNIQUE: Multiplanar multisequence MR imaging of the brain was obtained without IV contrast. FINDINGS: Motion degraded MRI of the brain. There is no hydrocephalus, extra-axial surface collection, or herniation. There is a small acute infarct within the right peritrigonal white matter and there is a small acute infarct within the left middle frontal gyrus. There is also a punctate acute infarct within the left cerebellum. Intracranial arterial flow voids are not well assessed due to significant motion artifact. 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 There is no intracranial hemorrhage on the gradient recalled echo acquisition. The midline structures are normal. The cerebellar tonsils are normally positioned. The cerebellum and brainstem are normal. The craniocervical junction is normal. Osseous marrow signal intensity is homogenous. The visualized soft tissues are unremarkable. 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 There is no significant mass effect and there is no hemorrhagic transformation.
[2022-09-16 13:16] VITALS: BP 145/71; PULSE 75; O2SAT 96; BMI 25.8
[2022-09-16 13:47] LABS: Glucose, Whole Blood 314 mg/dL (60-115)
[2022-09-16 13:47] LABS: MANUAL DIFF FLAG NO
[2022-09-16 13:48] LABS: Basophils Absolute Auto 0.1 X10*3/uL (0.0-0.2); Basophils Percent Auto 0.3 % (0-2); Eosinophils Percent Auto 0.1 % (0-4); Hematocrit 44.5 % (42.0-52.0); Hemoglobin 14.1 g/dl (14.0-18.0); Imm Gran Abs Auto 0.18 X10*3/uL (0.00-0.03); Lymphocytes Absolute Auto 1.1 X10*3/uL (1.2-4.9); Mean Corpuscular HGB Conc 31.7 g/dl (31.0-36.0); Mean Corpuscular Hemoglobin 26.4 pg (27.0-33.0); Mean Corpuscular Volume 83.2 fL (80.0-98.0); Mean Platelet Volume 10.6 fL (9.4-12.4); Monocytes Absolute Auto 0.8 X10*3/uL (0.1-1.2); Monocytes Percent Auto 4.6 % (2-11); NRBC Pct Auto 0.4 /100WBC (0.0-0.2); Neutrophils Absolute Auto 15.6 x10*3/uL (2.0-8.3); Platelet Count 375 X10*3/uL (160-400); Red Blood Count 5.35 X10*6/uL (4.60-5.80); Red Cell Distribution Width 18.7 % (11.0-16.0); White Blood Count 17.7 X10*3/uL (4.8-10.8)
--- NOTE | 2022-09-16 13:57 | ECG_ITS ---
Test Reason : weakness Blood Pressure : / mmHG Vent. Rate : 121 BPM Atrial Rate : 000 BPM P-R Int : 000 ms QRS Dur : 186 ms QT Int : 430 ms P-R-T Axes : 000 -33 146 degrees QTc Int : 610 ms Atrial fibrillation with rapid ventricular response Left axis deviation Left bundle branch block Abnormal ECG When compared with ECG of 13-APR-2022 21:10, Vent. rate has increased BY 51 BPM T wave inversion less evident in Lateral leads Referred By: Erlinda Hoover Electronically Signed By:ISAEL JOYCE MD
--- NOTE | 2022-09-16 14:02 | ED.GENADULT ---
HPI - General Adult General Chief complaint: ETOH/Substance Use Stated complaint: ETOH, AMS per EMS Time Seen by Provider: 09/16/22 13:48 Source: other (The patient's nurse) Mode of arrival: EMS Limitations: altered mental status History of Present Illness HPI narrative: Patient comes to the emergency room via EMS. By the time I got to see the patient, EMS was gone. When I spoke to the patient who took report from EMS, she informed me that the only thing EMS said that patient was brought here for EtOH and they left. Patient's nurse was not provided with any further information, all we know is ETOH . Unknown if patient was found in the street or at home. Patient is awake, somnolent, unable to give any history, at times answers yes/no questions. Patient denies drinking alcohol, denies falling, denies drinking alcohol. Overall, patient is to altered to give any significant history Related Data Home Medications Medication Instructions Recorded Confirmed acetaminophen 500 mg tablet 1 tab PO Q8H PRN Pain 12/16/21 12/16/21 Previous Rx's Medication Instructions Recorded spironolactone 25 mg tablet 25 mg PO DAILY #30 tabs 10/29/21 acamprosate 333 mg tablet,delayed 666 mg PO TID #60 tabs 12/19/21 release amlodipine 10 mg tablet 1 tab PO QAM #30 tabs 12/19/21 apixaban 5 mg tablet (Eliquis) 5 mg PO BID #60 tabs 12/19/21 aspirin 81 mg tablet,delayed 81 mg PO QPM #30 tabs 12/19/21 release betamethasone dipropionate 0.05 % 1 appl topical BID #1 g 12/19/21 topical ointment carvedilol 25 mg tablet 25 mg PO BID #60 tabs 12/19/21 chlorthalidone 25 mg tablet 1 tab PO QAM #30 tabs 12/19/21 cyanocobalamin (vitamin B-12) 1,000 mcg PO DAILY #30 tabs 12/19/21 1,000 mcg tablet digoxin 125 mcg (0.125 mg) tablet 0.125 mg PO DAILY #30 tabs 12/19/21 folic acid 1 mg tablet 1 mg PO QAM #30 tabs 12/19/21 furosemide 80 mg tablet (Lasix) 80 mg PO BID #60 tabs 12/19/21 glipizide 10 mg tablet 10 mg PO BID #60 tabs 12/19/21 hydralazine 25 mg tablet 25 mg PO BID #60 tabs 12/19/21 metformin 1,000 mg tablet 1,000 mg PO BID #60 tabs 12/19/21 multivitamin 1 tab PO QPM #30 tabs 12/19/21 pravastatin 40 mg tablet 40 mg PO BEDTIME #30 tabs 12/19/21 sacubitril 49 mg-valsartan 51 mg 1 tab PO BID #60 tabs 12/19/21 tablet (Entresto) thiamine HCl (vitamin B1) 100 mg 100 mg PO QAM #30 tabs 12/19/21 tablet Allergies Allergy/AdvReac Type Severity Reaction Status Date / Time No Known Allergies Allergy Verified 09/22/21 12:18 Review of Systems Review of Systems: Yes Unobtainable due to mental condition [facility] Past Medical History Medical History Alcohol use disorder, severe, dependence Atrial fibrillation with rapid ventricular response Atrial fibrillation with slow ventricular response Cardiomyopathy CHF (congestive heart failure) Chronic atrial fibrillation Chronic systolic CHF (congestive heart failure) Depressive disorder Diabetes HTN (hypertension) LBBB (left bundle branch block) Family History Family History Mother HTN (hypertension) Father CAD (coronary artery disease) HTN (hypertension) Social History Social History Household Members: None Housing: Apartment Do you presently have visiting nurse or other home services: No Alcohol intake: current Alcohol intake frequency: former alcohol drinker Alcohol type: hard liquor Patient Tobacco Use Status: Former Tobacco user Tobacco use type: Cigarette Advance Directives: Yes Advance Directives on File: Yes Advance Directives Date on File: 06/27/21 service: No Current occupational status: retired Physical Exam ED Vital Signs: Vital Signs - 24 hr 09/16/22 15:19 09/16/22 18:44 Temperature 98.2 F 97 F Pulse Rate 105 H 121 H Respiratory Rate 16 17 Blood Pressure 106/86 145/89 H Pulse Oximetry 97 100 Oxygen Delivery Method Oxymask High Flow Nasal Cannula Oxygen Flow Rate 7 BMI result Body Mass Index 25.8 Const Other: Appearance: Alert. Somnolent, easily arousable, seems intoxicated, answers yes no questions Eyes: Pupils equal, round and reactive to light. ENT: Dry oral pharynx Neck: Normal inspection. Neck supple. No lymph nodes noted. No crepitus CVS: Normal heart rate and rhythm. Pulses normal. Normal S1 and S2 Respiratory: No respiratory distress. Breath sounds normal. No Wheezing. No rales Abdomen: Soft and nontender. No rigidity. No distention. Skin: Skin warm and dry. Normal skin color. Normal skin turgor. Extremities: Bilateral trace pitting edema, chronic venous stasis bilaterally, no cellulitis Neuro: Intoxicated Psych: calm, cooperative, intoxicated Course Course Course Narrative: -we do not have any further history other than the patient came for ETOH , but the patient denies drinking alcohol, patient too altered to give any further history -patient is in the hallway, pulse ox shows oxygen saturation in the low 80s. Patient does not seem to be hypoxic. At this time, we do not have any monitor beds, we cannot see if this is a good waveform. It was placed prophylactically on oxygen. With oxygen at 2 L, oxygen saturation improved to the high 90s. Patient states that he is not short of breath -all of patient's labs and imaging pending Medications Administered Generic Name Dose Route Start Last Admin Trade Name Freq PRN Reason Stop Dose Admin Thiamine HCl 100 mg/ Sodium 101 mls @ 202 mls/hr 09/16/22 19:40 09/16/22 21:57 Chloride IV Infused DAILY JESUS Infusion Ampicillin Sodium/Sulbactam 100 mls @ 200 mls/hr 09/16/22 21:00 09/16/22 21:55 Sodium 3 gm/ Sodium Chloride IV 200 mls/hr Q6H JESUS Administration Diltiazem HCl 125 mg/ Sodium 125 mls @ 0 mls/hr 09/16/22 20:30 09/16/22 21:18 Chloride IVCONT 10 mg/hr .Q0M JESUS 10 mls/hr Administration Protocol Per Protocol Insulin Human Lispro 0 unit 09/16/22 20:00 09/16/22 20:20 Insulin Lispro 100 Unit/Ml 3 Ml Vial SUBCUT Not Given Q6H JESUS Protocol Discontinued Medications Generic Name Dose Route Start Last Admin Trade Name Freq PRN Reason Stop Dose Admin Sodium Chloride 1,000 mls @ 999 mls/hr 09/16/22 14:16 09/16/22 15:26 Ns IVCONT 09/16/22 15:16 999 mls/hr .Q1H1M ONE Administration Insulin Human Regular 10 unit 09/16/22 14:16 09/16/22 15:29 Insulin Regular, Human 100 Unit/Ml 3 Ml Vial IVPUSH 09/16/22 14:17 10 unit ONCE ONE Administration Metoprolol Tartrate 5 mg 09/16/22 16:07 09/16/22 18:56 Metoprolol Tartrate 5 Mg/5 Ml Vial IVPUSH 09/16/22 16:08 5 mg ONCE ONE Administration Metoprolol Tartrate 5 mg 09/16/22 19:42 09/16/22 20:21 Metoprolol Tartrate 5 Mg/5 Ml Vial IVPUSH 09/16/22 19:43 5 mg ONCE ONE Administration Phenobarbital Sodium 350 mg 09/16/22 20:15 09/16/22 20:21 Phenobarbital Sodium 130 Mg/Ml Im Once IM 09/16/22 20:16 350 mg ONCE ONE Administration Medical Decision Making Medical Decision Making MDM Narrative: -patient's ETOH level is negative -patient has elevated LFTs, new from the previous labs, ultrasound of the abdomen pending. -Pt is hyperglycemic, receiving IV fluids and insulin 10 units -patient has been here 2 hours, I have requested vital signs multiple times, they are not available yet. -EKG shows atrial fibrillation with RVR, heart rate 121, left bundle-branch block -patient given metoprolol, initially heart rate improved to the low 100s, but shortly after eating crease again to the 120s to 130s. Patient was started on a Cardizem drip -I was able to get in touch with his [employer]. The last time that the patient was seen well was almost 3 days ago. Patient is known to be a heavy alcoholic drinker -patient was started on phenobarb per recall -CT scan shows a left frontal age indeterminate infarct. Patient likely had a CVA. Patient was last seen normal approximately 72 hours ago. Patient is not a candidate for tPA. Seems that patient has been off Eliquis at least since April? -22:37, CT scan for pulmonary embolism is still pending. With Dr. Mcintyre aware, will f/u with CTA results -I discussed the patient with Dr. Mcintyre, patient being admitted Differential Diagnosis Differential Diagnoses: The differential diagnosis associated with the presentation includes (ETOH, encephalopathy, CVA) Admission/Observation Consideration of admission/observation: Escalation of care including admission/observation considered Consult Healthcare Provider Management of the patient was discussed with: Hospitalist Lab Data MDM Lab Attestation statement: I reviewed the patient's lab results. 09/16/22 13:43 09/16/22 13:43 Labs: Lab Results 09/16/22 09/16/22 09/16/22 Range/Units 13:33 13:43 13:43 WBC 17.7 H (4.8-10.8) X10*3/uL RBC 5.35 (4.60-5.80) X10*6/uL Hgb 14.1 (14.0-18.0) g/dl Hct 44.5 (42.0-52.0) % MCV 83.2 (80.0-98.0) fL MCH 26.4 L (27.0-33.0) pg MCHC 31.7 (31.0-36.0) g/dl RDW 18.7 H (11.0-16.0) % Plt Count 375 D (160-400) X10*3/uL MPV 10.6 (9.4-12.4) fL Immature Gran % (Auto) 1.0 H (0.0-0.4) % Neut % (Auto) 88.0 H (45-73) % Lymph % (Auto) 6.0 L (20-40) % [place] % (Auto) 4.6 (2-11) % Eos % (Auto) 0.1 (0-4) % Baso % (Auto) 0.3 (0-2) % Lymph # (Auto) 1.1 L (1.2-4.9) X10*3/uL [place] # (Auto) 0.8 (0.1-1.2) X10*3/uL Eos # (Auto) 0.0 (0.0-0.4) X10*3/uL Baso # (Auto) 0.1 (0.0-0.2) X10*3/uL Abs Immat Gran (auto) 0.18 H (0.00-0.03) X10*3/uL Absolute Neuts (auto) 15.6 H (2.0-8.3) x10*3/uL Absolute Nucleated RBC 0.070 H (0.0-0.012) X10*3/uL Nucleated RBC % (auto) 0.4 H (0.0-0.2) /100WBC PT (10.0-13.1) SEC INR (0.9-1.1) D-Dimer High Sensitivty NG/ML VBG pH (7.32-7.43) VBG pCO2 mmHg VBG pO2 mmHg VBG HCO3 (22-26) mmol/L VBG O2 Saturation % VBG Base Excess mmol/L Sodium 137 (135-145) mmol/L Potassium 3.6 (3.3-5.1) mmol/L Chloride 96 (96-108) mmol/L Carbon Dioxide 27 (22-29) mmol/L Anion Gap 18 (12-20) BUN 44 H (9-16) mg/dL Creatinine 1.48 H (0.5-1.4) mg/dL Estim Creat Clear Calc 45.8 Estimated GFR 47 POC Glucose 314 H (60-115) mg/dL Random Glucose 330 H (60-115) mg/dL Lactic Acid (0.5-2.0) mmol/L Calcium 7.6 L D (8.4-10.2) mg/dL Magnesium (1.6-2.6) mg/dL Total Bilirubin 3.1 H (0.0-1.0) mg/dL Direct Bilirubin (0.0-0.5) mg/dL AST 60 H (5-37) U/L ALT 56 H (0-40) U/L Alkaline Phosphatase 203 H (39-117) U/L Ammonia (13-55) umol/L Troponin I High Sens (<3.5-35.0) ng/L B-Natriuretic Peptide (<100) pg/mL Total Protein 6.5 (6.5-8.0) g/dL Albumin 2.9 L (3.5-5.0) g/dL TSH (0.32-4.0) uIU/mL Urine Color Urine Appearance Urine pH (5.0-9.0) Ur Specific [place] (1.005-1.025) Urine Protein (Neg-Trace) mg/dL Urine Glucose (UA) (Negative) mg/dL Urine Ketones (Negative) mg/dL Urine Blood (Negative) Urine Nitrite (Negative) Ur Leukocyte Esterase (Negative) Urine RBC (0-2) /HPF Urine WBC (0-5) /HPF Ur Squamous Epith Cells (0-2) /HPF Urine Bacteria (None Seen) Hyaline Casts (0-2) /LPF Urine Opiates Screen (Not Detect) Urine Fentanyl Screen (Not Detect) Ur Barbiturates Screen (Not Detect) Ur Phencyclidine Scrn (Not Detect) Ur Amphetamines Screen (Not Detect) U Benzodiazepines Scrn (Not Detect) Urine Cocaine Screen (Not Detect) U Marijuana (THC) Screen (Not Detect) Ethyl Alcohol < 10 mg/dL Acetone, Qual Negative (Negative) COVID-19 (BRAVO) (Negative) COVID-19 Clin Com 09/16/22 09/16/22 09/16/22 Range/Units 16:05 16:08 18:48 WBC (4.8-10.8) X10*3/uL RBC (4.60-5.80) X10*6/uL Hgb (14.0-18.0) g/dl Hct (42.0-52.0) % MCV (80.0-98.0) fL MCH (27.0-33.0) pg MCHC (31.0-36.0) g/dl RDW (11.0-16.0) % Plt Count (160-400) X10*3/uL MPV (9.4-12.4) fL Immature Gran % (Auto) (0.0-0.4) % Neut % (Auto) (45-73) % Lymph % (Auto) (20-40) % [place] % (Auto) (2-11) % Eos % (Auto) (0-4) % Baso % (Auto) (0-2) % Lymph # (Auto) (1.2-4.9) X10*3/uL [place] # (Auto) (0.1-1.2) X10*3/uL Eos # (Auto) (0.0-0.4) X10*3/uL Baso # (Auto) (0.0-0.2) X10*3/uL Abs Immat Gran (auto) (0.00-0.03) X10*3/uL Absolute Neuts (auto) (2.0-8.3) x10*3/uL Absolute Nucleated RBC (0.0-0.012) X10*3/uL Nucleated RBC % (auto) (0.0-0.2) /100WBC PT 10.3 (10.0-13.1) SEC INR 0.9 (0.9-1.1) D-Dimer High Sensitivty NG/ML VBG pH (7.32-7.43) VBG pCO2 mmHg VBG pO2 mmHg VBG HCO3 (22-26) mmol/L VBG O2 Saturation % VBG Base Excess mmol/L Sodium (135-145) mmol/L Potassium (3.3-5.1) mmol/L Chloride (96-108) mmol/L Carbon Dioxide (22-29) mmol/L Anion Gap (12-20) BUN (9-16) mg/dL Creatinine (0.5-1.4) mg/dL Estim Creat Clear Calc Estimated GFR POC Glucose (60-115) mg/dL Random Glucose (60-115) mg/dL Lactic Acid (0.5-2.0) mmol/L Calcium (8.4-10.2) mg/dL Magnesium (1.6-2.6) mg/dL Total Bilirubin (0.0-1.0) mg/dL Direct Bilirubin (0.0-0.5) mg/dL AST (5-37) U/L ALT (0-40) U/L Alkaline Phosphatase (39-117) U/L Ammonia (13-55) umol/L Troponin I High Sens (<3.5-35.0) ng/L B-Natriuretic Peptide (<100) pg/mL Total Protein (6.5-8.0) g/dL Albumin (3.5-5.0) g/dL TSH (0.32-4.0) uIU/mL Urine Color Urine Appearance Urine pH (5.0-9.0) Ur Specific [place] (1.005-1.025) Urine Protein (Neg-Trace) mg/dL Urine Glucose (UA) (Negative) mg/dL Urine Ketones (Negative) mg/dL Urine Blood (Negative) Urine Nitrite (Negative) Ur Leukocyte Esterase (Negative) Urine RBC (0-2) /HPF Urine WBC (0-5) /HPF Ur Squamous Epith Cells (0-2) /HPF Urine Bacteria (None Seen) Hyaline Casts (0-2) /LPF Urine Opiates Screen Not Detected (Not Detect) Urine Fentanyl Screen Not Detected (Not Detect) Ur Barbiturates Screen Not Detected (Not Detect) Ur Phencyclidine Scrn Not Detected (Not Detect) Ur Amphetamines Screen Not Detected (Not Detect) U Benzodiazepines Scrn Not Detected (Not Detect) Urine Cocaine Screen Not Detected (Not Detect) U Marijuana (THC) Screen Not Detected (Not Detect) Ethyl Alcohol mg/dL Acetone, Qual (Negative) COVID-19 (BRAVO) Negative (Negative) COVID-19 Clin Com See Note 09/16/22 09/16/22 09/16/22 Range/Units 18:48 19:00 19:00 WBC (4.8-10.8) X10*3/uL RBC (4.60-5.80) X10*6/uL Hgb (14.0-18.0) g/dl Hct (42.0-52.0) % MCV (80.0-98.0) fL MCH (27.0-33.0) pg MCHC (31.0-36.0) g/dl RDW (11.0-16.0) % Plt Count (160-400) X10*3/uL MPV (9.4-12.4) fL Immature Gran % (Auto) (0.0-0.4) % Neut % (Auto) (45-73) % Lymph % (Auto) (20-40) % [place] % (Auto) (2-11) % Eos % (Auto) (0-4) % Baso % (Auto) (0-2) % Lymph # (Auto) (1.2-4.9) X10*3/uL [place] # (Auto) (0.1-1.2) X10*3/uL Eos # (Auto) (0.0-0.4) X10*3/uL Baso # (Auto) (0.0-0.2) X10*3/uL Abs Immat Gran (auto) (0.00-0.03) X10*3/uL Absolute Neuts (auto) (2.0-8.3) x10*3/uL Absolute Nucleated RBC (0.0-0.012) X10*3/uL Nucleated RBC % (auto) (0.0-0.2) /100WBC PT (10.0-13.1) SEC INR (0.9-1.1) D-Dimer High Sensitivty NG/ML VBG pH (7.32-7.43) VBG pCO2 mmHg VBG pO2 mmHg VBG HCO3 (22-26) mmol/L VBG O2 Saturation % VBG Base Excess mmol/L Sodium 141 (135-145) mmol/L Potassium 3.7 (3.3-5.1) mmol/L Chloride 97 (96-108) mmol/L Carbon Dioxide 29 (22-29) mmol/L Anion Gap 19 (12-20) BUN 46 H (9-16) mg/dL Creatinine 1.38 (0.5-1.4) mg/dL Estim Creat Clear Calc 49.2 Estimated GFR 51 POC Glucose (60-115) mg/dL Random Glucose 153 H (60-115) mg/dL Lactic Acid (0.5-2.0) mmol/L Calcium 7.9 L (8.4-10.2) mg/dL Magnesium 1.8 (1.6-2.6) mg/dL Total Bilirubin 2.6 H (0.0-1.0) mg/dL Direct Bilirubin 1.6 H (0.0-0.5) mg/dL AST 58 H (5-37) U/L ALT 54 H (0-40) U/L Alkaline Phosphatase 198 H (39-117) U/L Ammonia (13-55) umol/L Troponin I High Sens 147.9 H* (<3.5-35.0) ng/L B-Natriuretic Peptide (<100) pg/mL Total Protein 6.3 L (6.5-8.0) g/dL Albumin 2.8 L (3.5-5.0) g/dL TSH 1.41 (0.32-4.0) uIU/mL Urine Color Dark Yellow Urine Appearance Clear Urine pH 5.5 (5.0-9.0) Ur Specific [place] 1.020 (1.005-1.025) Urine Protein 300 (3+) H (Neg-Trace) mg/dL Urine Glucose (UA) Negative (Negative) mg/dL Urine Ketones Negative (Negative) mg/dL Urine Blood Moderate (2+) H (Negative) Urine Nitrite Negative (Negative) Ur Leukocyte Esterase Negative (Negative) Urine RBC 3-5 H (0-2) /HPF Urine WBC 0-5 (0-5) /HPF Ur Squamous Epith Cells 0-2 (0-2) /HPF Urine Bacteria None Seen (None Seen) Hyaline Casts >20 (0-2) /LPF Urine Opiates Screen (Not Detect) Urine Fentanyl Screen (Not Detect) Ur Barbiturates Screen (Not Detect) Ur Phencyclidine Scrn (Not Detect) Ur Amphetamines Screen (Not Detect) U Benzodiazepines Scrn (Not Detect) Urine Cocaine Screen (Not Detect) U Marijuana (THC) Screen (Not Detect) Ethyl Alcohol mg/dL Acetone, Qual (Negative) COVID-19 (BRAVO) (Negative) COVID-19 Clin Com 09/16/22 09/16/22 09/16/22 Range/Units 19:00 19:00 19:00 WBC (4.8-10.8) X10*3/uL RBC (4.60-5.80) X10*6/uL Hgb (14.0-18.0) g/dl Hct (42.0-52.0) % MCV (80.0-98.0) fL MCH (27.0-33.0) pg MCHC (31.0-36.0) g/dl RDW (11.0-16.0) % Plt Count (160-400) X10*3/uL MPV (9.4-12.4) fL Immature Gran % (Auto) (0.0-0.4) % Neut % (Auto) (45-73) % Lymph % (Auto) (20-40) % [place] % (Auto) (2-11) % Eos % (Auto) (0-4) % Baso % (Auto) (0-2) % Lymph # (Auto) (1.2-4.9) X10*3/uL [place] # (Auto) (0.1-1.2) X10*3/uL Eos # (Auto) (0.0-0.4) X10*3/uL Baso # (Auto) (0.0-0.2) X10*3/uL Abs Immat Gran (auto) (0.00-0.03) X10*3/uL Absolute Neuts (auto) (2.0-8.3) x10*3/uL Absolute Nucleated RBC (0.0-0.012) X10*3/uL Nucleated RBC % (auto) (0.0-0.2) /100WBC PT (10.0-13.1) SEC INR (0.9-1.1) D-Dimer High Sensitivty 513 NG/ML VBG pH (7.32-7.43) VBG pCO2 mmHg VBG pO2 mmHg VBG HCO3 (22-26) mmol/L VBG O2 Saturation % VBG Base Excess mmol/L Sodium (135-145) mmol/L Potassium (3.3-5.1) mmol/L Chloride (96-108) mmol/L Carbon Dioxide (22-29) mmol/L Anion Gap (12-20) BUN (9-16) mg/dL Creatinine (0.5-1.4) mg/dL Estim Creat Clear Calc Estimated GFR POC Glucose (60-115) mg/dL Random Glucose (60-115) mg/dL Lactic Acid 4.2 H* (0.5-2.0) mmol/L Calcium (8.4-10.2) mg/dL Magnesium (1.6-2.6) mg/dL Total Bilirubin (0.0-1.0) mg/dL Direct Bilirubin (0.0-0.5) mg/dL AST (5-37) U/L ALT (0-40) U/L Alkaline Phosphatase (39-117) U/L Ammonia (13-55) umol/L Troponin I High Sens (<3.5-35.0) ng/L B-Natriuretic Peptide 1732 H (<100) pg/mL Total Protein (6.5-8.0) g/dL Albumin (3.5-5.0) g/dL TSH (0.32-4.0) uIU/mL Urine Color Urine Appearance Urine pH (5.0-9.0) Ur Specific [place] (1.005-1.025) Urine Protein (Neg-Trace) mg/dL Urine Glucose (UA) (Negative) mg/dL Urine Ketones (Negative) mg/dL Urine Blood (Negative) Urine Nitrite (Negative) Ur Leukocyte Esterase (Negative) Urine RBC (0-2) /HPF Urine WBC (0-5) /HPF Ur Squamous Epith Cells (0-2) /HPF Urine Bacteria (None Seen) Hyaline Casts (0-2) /LPF Urine Opiates Screen (Not Detect) Urine Fentanyl Screen (Not Detect) Ur Barbiturates Screen (Not Detect) Ur Phencyclidine Scrn (Not Detect) Ur Amphetamines Screen (Not Detect) U Benzodiazepines Scrn (Not Detect) Urine Cocaine Screen (Not Detect) U Marijuana (THC) Screen (Not Detect) Ethyl Alcohol mg/dL Acetone, Qual (Negative) COVID-19 (BRAVO) (Negative) COVID-19 Clin Com 09/16/22 09/16/22 Range/Units 19:00 19:03 WBC (4.8-10.8) X10*3/uL RBC (4.60-5.80) X10*6/uL Hgb (14.0-18.0) g/dl Hct (42.0-52.0) % MCV (80.0-98.0) fL MCH (27.0-33.0) pg MCHC (31.0-36.0) g/dl RDW (11.0-16.0) % Plt Count (160-400) X10*3/uL MPV (9.4-12.4) fL Immature Gran % (Auto) (0.0-0.4) % Neut % (Auto) (45-73) % Lymph % (Auto) (20-40) % [place] % (Auto) (2-11) % Eos % (Auto) (0-4) % Baso % (Auto) (0-2) % Lymph # (Auto) (1.2-4.9) X10*3/uL [place] # (Auto) (0.1-1.2) X10*3/uL Eos # (Auto) (0.0-0.4) X10*3/uL Baso # (Auto) (0.0-0.2) X10*3/uL Abs Immat Gran (auto) (0.00-0.03) X10*3/uL Absolute Neuts (auto) (2.0-8.3) x10*3/uL Absolute Nucleated RBC (0.0-0.012) X10*3/uL Nucleated RBC % (auto) (0.0-0.2) /100WBC PT (10.0-13.1) SEC INR (0.9-1.1) D-Dimer High Sensitivty NG/ML VBG pH 7.46 H (7.32-7.43) VBG pCO2 31 mmHg VBG pO2 65 mmHg VBG HCO3 22 (22-26) mmol/L VBG O2 Saturation 90.0 % VBG Base Excess -0.2 mmol/L Sodium (135-145) mmol/L Potassium (3.3-5.1) mmol/L Chloride (96-108) mmol/L Carbon Dioxide (22-29) mmol/L Anion Gap (12-20) BUN (9-16) mg/dL Creatinine (0.5-1.4) mg/dL Estim Creat Clear Calc Estimated GFR POC Glucose (60-115) mg/dL Random Glucose (60-115) mg/dL Lactic Acid (0.5-2.0) mmol/L Calcium (8.4-10.2) mg/dL Magnesium (1.6-2.6) mg/dL Total Bilirubin (0.0-1.0) mg/dL Direct Bilirubin (0.0-0.5) mg/dL AST (5-37) U/L ALT (0-40) U/L Alkaline Phosphatase (39-117) U/L Ammonia 73 H (13-55) umol/L Troponin I High Sens (<3.5-35.0) ng/L B-Natriuretic Peptide (<100) pg/mL Total Protein (6.5-8.0) g/dL Albumin (3.5-5.0) g/dL TSH (0.32-4.0) uIU/mL Urine Color Urine Appearance Urine pH (5.0-9.0) Ur Specific [place] (1.005-1.025) Urine Protein (Neg-Trace) mg/dL Urine Glucose (UA) (Negative) mg/dL Urine Ketones (Negative) mg/dL Urine Blood (Negative) Urine Nitrite (Negative) Ur Leukocyte Esterase (Negative) Urine RBC (0-2) /HPF Urine WBC (0-5) /HPF Ur Squamous Epith Cells (0-2) /HPF Urine Bacteria (None Seen) Hyaline Casts (0-2) /LPF Urine Opiates Screen (Not Detect) Urine Fentanyl Screen (Not Detect) Ur Barbiturates Screen (Not Detect) Ur Phencyclidine Scrn (Not Detect) Ur Amphetamines Screen (Not Detect) U Benzodiazepines Scrn (Not Detect) Urine Cocaine Screen (Not Detect) U Marijuana (THC) Screen (Not Detect) Ethyl Alcohol mg/dL Acetone, Qual (Negative) COVID-19 (BRAVO) (Negative) COVID-19 Clin Com Independent Interpretation I performed an independent interpretation of an: Plain X-Ray (My interpretation of chest x-ray: Cardiomegaly, no infiltrates) Radiology Impression Discussion of test interpretation with radiology: I have reviewed the radiologist's reading. Radiologist Impression: INDINGS: There are limitations to the study due to inability to cooperate. PANCREAS: Normal. LIVER: There is some limitation in visualization. The liver contour is normal. Parenchymal echogenicity is normal. No focal hepatic lesion. There is no intrahepatic biliary duct dilatation seen. GALLBLADDER: Normal. The gallbladder is physiologically distended without evidence of stones, sludge, polyps, wall thickening or pericholecystic fluid. COMMON BILE DUCT: Normal in caliber measuring 0.3 cm in diameter. RIGHT KIDNEY: Normal. No hydronephrosis. No renal calculi or focal parenchymal lesions. The kidney measures 12.3 cm in maximum dimension. FREE FLUID: None. US/US abdomen limited IMPRESSION: No significant abnormality appreciated with limitations as described. Chest x-ray: FINDINGS: The patient is leaning towards the right. The lungs are expanded and clear. The heart size is enlarged. Pulmonary vascularity is normal. No gross bony abnormality seen. XR/XR chest 1V IMPRESSION: Mild cardiomegaly. No acute process seen. Critical Care Time Critical Care Time Critical Care Time: Yes Total Critical Care Time: 75 Attestation: I have personally provided critical care time. Time includes review of lab data, radiology results, discussion with consultants, and monitoring for potential decompensation. Intervention performed as documented. Discharge Plan Discharge Clinical Impression: Atrial fibrillation with rapid ventricular response, Encephalopathy, Alcoholism, Acute CVA (cerebrovascular accident) Patient Disposition: Admitted As Inpatient
[2022-09-16 14:04] LABS: Alanine Aminotransferase 56 U/L (0-40); Albumin Level 2.9 g/dL (3.5-5.0); Alkaline Phosphatase 203 U/L (39-117); Anion Gap 18 (12-20); Aspartate Amino Transferase 60 U/L (5-37); Bilirubin Total 3.1 mg/dL (0.0-1.0); Blood Urea Nitrogen 44 mg/dL (9-16); Calcium 7.6 mg/dL (8.4-10.2); Carbon Dioxide 27 mmol/L (22-29); Chloride 96 mmol/L (96-108); Creatinine Clr Calc Pharmacy 45.8; Estimated Glomerular Filt Rate 47; Ethanol < 10 mg/dL; Glucose Random 330 mg/dL (60-115); Potassium 3.6 mmol/L (3.3-5.1); Sodium 137 mmol/L (135-145); Total Protein 6.5 g/dL (6.5-8.0)
[2022-09-16 14:20] LABS: Acetone, serum QL Negative (Negative)
[2022-09-16 15:19] VITALS: BP 106/86; PULSE 105; RESP 16; TEMP 36.8; O2SAT 97
[2022-09-16] MEDS: 0.9 % Sodium Chloride 1,000 ML 999 ML IVCONT (15:26)
[2022-09-16] MEDS: Insulin Regular, Human 100 UNIT/ML 3 ML VIAL 10 UNIT IVPUSH (15:29)
[2022-09-16 16:20] LABS: INTERNATIONAL NORM RATIO 0.9 (0.9-1.1); Prothrombin Time 10.3 SEC (10.0-13.1)
[2022-09-16 16:30] LABS: COVID-19 Test Negative (Negative); IDNOW Serial# 16C4AD1C
--- NOTE | 2022-09-16 18:00 | MHC.EDTECH ---
Pt removing gown and leads and o2 mask and will not leave on/ Rn Bohannon made aware
[2022-09-16 18:44] VITALS: BP 145/89; PULSE 121; RESP 17; TEMP 36.1; O2SAT 100
[2022-09-16] MEDS: Metoprolol Tartrate 5 MG/5 ML VIAL IVPUSH ×2 (18:56→20:21)
[2022-09-16 18:57] LABS: Appearance Urine Clear; Color Urine Dark Yellow; Glucose Urine UA Negative (Negative); Leukocyte Esterase Urine Negative (Negative); Nitrite Urine Negative (Negative); PH 5.5 (5.0-9.0); UMIC TRIGGER UACC YES; Urine Blood Moderate (2+) (Negative); Urine Ketones Negative (Negative); Urine Protein 300 (3+) mg/dL (Neg-Trace)
[2022-09-16 19:07] LABS: Amphetamine Screen Urine Not Detected (Not Detect); Bacteria Urine None Seen (None Seen); Barbiturates, Urine Not Detected (Not Detect); Benzodiazepines Screen Urine Not Detected (Not Detect); Cannabinoid Screen Urine Not Detected (Not Detect); Cocaine Screen Urine Not Detected (Not Detect); Fentanyl, urine Not Detected (Not Detect); Hyaline Casts Urine >20 /LPF (0-2); Opiate Screen Urine Not Detected (Not Detect); Phencyclidine Screen Urine Not Detected (Not Detect); Squamous Epithelial Cell Urine 0-2 /HPF (0-2); WBC Urine 0-5 /HPF (0-5)
[2022-09-16 19:10] LABS: VBG Base Excess -0.2 mmol/L; VBG HCO3 22 mmol/L (22-26); VBG pCO2 31 mmHg; VBG pH 7.46 (7.32-7.43); VBG pO2 65 mmHg
[2022-09-16 19:10] LABS: Venous Blood Gas Refer to POC result
[2022-09-16 19:25] LABS: D Dimer High Sensitivity 513 NG/ML
--- NOTE | 2022-09-16 19:34 | P.HPHOSP_ITS ---
History of Present Illness Date of Service: 09/16/22 Chief Complaint: Alcohol withdrawal This is a 71-year-old male with pertinent history of congestive heart failure with reduced ejection fraction, [id number]-[id number] diabetes mellitus, atrial fibrillation on Eliquis, mixed hyperlipidemia, essential hypertension who was brought by EMS after he was found for decreased responsiveness. History obtained by chart review and ER provider. Patient was last seen normally about 72 hours ago. Friend noted about a gallon of alcohol near the patient. Unknown last drink. EMS dropped off the patient saying he was here for alcohol and left. Patient unable provide any history as he is altered In the emergency department, patient was initiated on phenobarb protocol Review of Systems Review of Systems: Yes Unobtainable due to mental status [facility] Medical History Alcohol use disorder, severe, dependence Atrial fibrillation with rapid ventricular response Atrial fibrillation with slow ventricular response Cardiomyopathy CHF (congestive heart failure) Chronic atrial fibrillation Chronic systolic CHF (congestive heart failure) Depressive disorder Diabetes HTN (hypertension) LBBB (left bundle branch block) Family History Mother HTN (hypertension) Father CAD (coronary artery disease) HTN (hypertension) Social History Household Members: None Housing: Apartment Do you presently have visiting nurse or other home services: No Alcohol intake: current Alcohol intake frequency: former alcohol drinker Alcohol type: hard liquor Patient Tobacco Use Status: Former Tobacco user Tobacco use type: Cigarette Advance Directives: Yes Advance Directives on File: Yes Advance Directives Date on File: 06/27/21 service: No Current occupational status: retired [employer] Allergies Allergy/AdvReac Type Severity Reaction Status Date / Time No Known Allergies Allergy Verified 09/22/21 12:18 Active Medications: Current Medications Pharmacy Consult (Consult Rx Perform Med Rec) 1 each MISCELLANE ONCE PRN PRN Reason: Consult order Pharmacy Consult (Consult Rx Etoh Phenob Im/Po) 1 each MISCELLANE ONCE PRN; Protocol PRN Reason: Consult order Home Medications Medication Instructions Recorded Confirmed Last Taken Type acetaminophen 500 mg tablet 1 tab PO Q8H PRN Pain 12/16/21 12/16/21 12/13/21 History Physical Exam Vital Signs and Narrative: Vital Signs: Last Vital Signs Temp 97 F 09/16/22 18:44 Pulse 121 H 09/16/22 18:44 Resp 17 09/16/22 18:44 BP 145/89 H 09/16/22 18:44 Pulse Ox 100 09/16/22 18:44 O2 Del Method 09/16/22 18:44 O2 Flow Rate 7 09/16/22 18:44 BMI result Body Mass Index 25.8 Middle-aged male lying in bed on supplemental oxygen Neck supple, no JVD Irregularly irregular, S1-S2 heard Reduced breath sounds at bases Abdomen soft nontender, no guarding, no rigidity Patient is drowsy and only awakens to painful stimulus Psych: Normal mood Bilateral lower extremity with venous stasis changes Results Labs 09/16/22 13:43 09/16/22 13:43 Labs: Laboratory Results - last 24 hr 09/16/22 09/16/22 09/16/22 13:33 13:43 13:43 MCV 83.2 MCH 26.4 L MCHC 31.7 RDW 18.7 H Plt Count 375 D MPV 10.6 Immature Gran % (Auto) 1.0 H Neut % (Auto) 88.0 H Lymph % (Auto) 6.0 L Hendricks % (Auto) 4.6 Eos % (Auto) 0.1 Baso % (Auto) 0.3 Lymph # (Auto) 1.1 L Hendricks # (Auto) 0.8 Eos # (Auto) 0.0 Baso # (Auto) 0.1 Abs Immat Gran (auto) 0.18 H Absolute Neuts (auto) 15.6 H Absolute Nucleated RBC 0.070 H Nucleated RBC % (auto) 0.4 H PT INR D-Dimer High Sensitivty VBG pH VBG pCO2 VBG pO2 VBG HCO3 VBG O2 Saturation VBG Base Excess Anion Gap 18 Estim Creat Clear Calc 45.8 Estimated GFR 47 POC Glucose 314 H Random Glucose 330 H Calcium 7.6 L D Total Bilirubin 3.1 H AST 60 H ALT 56 H Alkaline Phosphatase 203 H Total Protein 6.5 Albumin 2.9 L Urine Color Urine Appearance Urine pH Ur Specific Holland Urine Protein Urine Glucose (UA) Urine Ketones Urine Blood Urine Nitrite Ur Leukocyte Esterase Urine RBC Urine WBC Ur Squamous Epith Cells Urine Bacteria Hyaline Casts Urine Opiates Screen Urine Fentanyl Screen Ur Barbiturates Screen Ur Phencyclidine Scrn Ur Amphetamines Screen U Benzodiazepines Scrn Urine Cocaine Screen U Marijuana (THC) Screen Ethyl Alcohol < 10 Acetone, Qual Negative COVID-19 (BRAVO) COVID-19 Flocations 09/16/22 09/16/22 09/16/22 16:05 16:08 18:48 MCV MCH MCHC RDW Plt Count MPV Immature Gran % (Auto) Neut % (Auto) Lymph % (Auto) Hendricks % (Auto) Eos % (Auto) Baso % (Auto) Lymph # (Auto) Hendricks # (Auto) Eos # (Auto) Baso # (Auto) Abs Immat Gran (auto) Absolute Neuts (auto) Absolute Nucleated RBC Nucleated RBC % (auto) PT 10.3 INR 0.9 D-Dimer High Sensitivty VBG pH VBG pCO2 VBG pO2 VBG HCO3 VBG O2 Saturation VBG Base Excess Anion Gap Estim Creat Clear Calc Estimated GFR POC Glucose Random Glucose Calcium Total Bilirubin AST ALT Alkaline Phosphatase Total Protein Albumin Urine Color Urine Appearance Urine pH Ur Specific Holland Urine Protein Urine Glucose (UA) Urine Ketones Urine Blood Urine Nitrite Ur Leukocyte Esterase Urine RBC Urine WBC Ur Squamous Epith Cells Urine Bacteria Hyaline Casts Urine Opiates Screen Not Detected Urine Fentanyl Screen Not Detected Ur Barbiturates Screen Not Detected Ur Phencyclidine Scrn Not Detected Ur Amphetamines Screen Not Detected U Benzodiazepines Scrn Not Detected Urine Cocaine Screen Not Detected U Marijuana (THC) Screen Not Detected Ethyl Alcohol Acetone, Qual COVID-19 (BRAVO) Negative COVID-Honestly Now See Note 09/16/22 09/16/22 09/16/22 18:48 19:00 19:03 MCV MCH MCHC RDW Plt Count MPV Immature Gran % (Auto) Neut % (Auto) Lymph % (Auto) Hendricks % (Auto) Eos % (Auto) Baso % (Auto) Lymph # (Auto) Hendricks # (Auto) Eos # (Auto) Baso # (Auto) Abs Immat Gran (auto) Absolute Neuts (auto) Absolute Nucleated RBC Nucleated RBC % (auto) PT INR D-Dimer High Sensitivty 513 VBG pH 7.46 H VBG pCO2 31 VBG pO2 65 VBG HCO3 22 VBG O2 Saturation 90.0 VBG Base Excess -0.2 Anion Gap Estim Creat Clear Calc Estimated GFR POC Glucose Random Glucose Calcium Total Bilirubin AST ALT Alkaline Phosphatase Total Protein Albumin Urine Color Dark Yellow Urine Appearance Clear Urine pH 5.5 Ur Specific Holland 1.020 Urine Protein 300 (3+) H Urine Glucose (UA) Negative Urine Ketones Negative Urine Blood Moderate (2+) H Urine Nitrite Negative Ur Leukocyte Esterase Negative Urine RBC 3-5 H Urine WBC 0-5 Ur Squamous Epith Cells 0-2 Urine Bacteria None Seen Hyaline Casts >20 Urine Opiates Screen Urine Fentanyl Screen Ur Barbiturates Screen Ur Phencyclidine Scrn Ur Amphetamines Screen U Benzodiazepines Scrn Urine Cocaine Screen U Marijuana (THC) Screen Ethyl Alcohol Acetone, Qual COVID-19 (BRAVO) COVID-19 Clin Com Imaging Radiologist's Impressions: Impressions Head CT 09/16/22 14:36 IMPRESSION: Left frontal age-indeterminate infarct. This was not seen on the most recent 2021 study. No other significant abnormality. Abdomen Ultrasound 09/16/22 15:16 IMPRESSION: No significant abnormality appreciated with limitations as described. Assessment and Plan (1) Acute encephalopathy: Status: Acute Plan This is a 71-year-old male with pertinent history of congestive heart failure with reduced ejection fraction, hzx-zmzhehv-uemnleusr diabetes mellitus, atrial fibrillation on Eliquis, mixed hyperlipidemia, essential hypertension who was brought by EMS after he was found for decreased responsiveness. #. Alcohol use disorder with concerns for withdrawal: Initiated phenobarb protocol in the ER. Initiating thiamine and folic acid. Monitor CIWA. Consulted CARE team #. Acute encephalopathy likely in the setting of above. CT with left frontal lobe infarct. Obtaining MRI to define acuity and to rule out acute CVA. Ammonia pending #. Acute hypoxemic respiratory failure with concerns for aspiration: Initiating Unasyn. Monitor oxygen saturation and wean as tolerated. #. Type 2 cos-ayyeinp-rqiwcwxwh diabetes mellitus with hyperglycemia: Initiating Accu-Cheks with sliding scale insulin every 6 hours #. Atrial fibrillation with RVR: Initiated on diltiazem drip in the ER. On Eliquis. Continue oral rate-controlling agents #. Congestive heart failure with reduced ejection fraction: No clinical concern for exacerbation although BNP is elevated. Continue home medications. Obtaining echo #. Mixed hyperlipidemia: On statin #. Essential hypertension: Continue home antihypertensives #. Bilateral lower extremity with venous stasis changes: Consulted Wound Care Med rec pending DVT prophylaxis: Eliquis Full code Cardiac diet Admit as inpatient and will require two night minimum hospital stay for supplemental oxygen, IV antibiotics Time Spent With Patient Time: Total time managing care of this patient today ____ minutes. Quality Stroke Does the patient have a stroke diagnosis?: No VTE Prior VTE?: No VTE Risk Level:: Medical - moderate - high VTE Device Contraindication: Treatment Not Indicated VTE Drug Contraindication: N/A - Med Ordered
[2022-09-16 19:42] LABS: Ammonia 73 umol/L (13-55)
[2022-09-16 19:56] LABS: Alanine Aminotransferase 54 U/L (0-40); Albumin Level 2.8 g/dL (3.5-5.0); Alkaline Phosphatase 198 U/L (39-117); Anion Gap 19 (12-20); Aspartate Amino Transferase 58 U/L (5-37); Bilirubin Direct 1.6 mg/dL (0.0-0.5); Bilirubin Total 2.6 mg/dL (0.0-1.0); Blood Urea Nitrogen 46 mg/dL (9-16); Calcium 7.9 mg/dL (8.4-10.2); Carbon Dioxide 29 mmol/L (22-29); Chloride 97 mmol/L (96-108); Creatinine Clr Calc Pharmacy 49.2; Estimated Glomerular Filt Rate 51; Glucose Random 153 mg/dL (60-115); Magnesium 1.8 mg/dL (1.6-2.6); Potassium 3.7 mmol/L (3.3-5.1); Sodium 141 mmol/L (135-145); Total Protein 6.3 g/dL (6.5-8.0)
[2022-09-16 20:00] LABS: B Type Natriuretic Peptide 1732 pg/mL (<100)
--- NOTE | 2022-09-16 20:07 | PHA.MEDREC ---
Pharmacy Consult ? Medication Reconciliation Pharmacy has completed the medication reconciliation. Spoke with patients KIRK Magalie ([phone]) kelly and she will roller picker patients med list from his house and bring it in tomorrow when she comes to visit. Will follow up in the AM. Dr Mcintyre notified.
[2022-09-16 20:11] LABS: TSH reflex Free T4 1.41 uIU/mL (0.32-4.0)
[2022-09-16 20:16] LABS: Glucose, Whole Blood 138 mg/dL (60-115)
[2022-09-16] MEDS: PHENobarbitaL sodium 130 MG/ML IM ONCE 350 MG IM (20:21)
[2022-09-16 20:23] LABS: Lactic Acid 4.2 mmol/L (0.5-2.0)
[2022-09-16 20:24] LABS: Troponin-I High Sensitivity 147.9 ng/L (<3.5-35.0)
[2022-09-16] MEDS: Thiamine HCL 100 MG in 0.9 % Sodium Chloride 100 ML 202 MG IV (20:43)
--- NOTE | 2022-09-16 21:00 | PC.NURSE ---
Restrains removed from right and left upper extremities, patient is sleeping, no concerns at this time for pulling iv line/heller cath.
[2022-09-16 21:07] LABS: Reflex Lactate? Lactic Acid Added
[2022-09-16 21:12] VITALS: BP 123/72; PULSE 126; RESP 20; TEMP 37.1; O2SAT 93
[2022-09-16] MEDS: dilTIAZem HCL 125 MG in 0.9 % Sodium Chloride 100 ML 10 MG IVCONT (21:18)
[2022-09-16 21:55] VITALS: BP 120/64; PULSE 101; RESP 20; O2SAT 99
[2022-09-16] MEDS: Ampicillin Sodium/Sulbactam Na 3 GM in 0.9 % Sodium Chloride 100 ML IV (21:55)
[2022-09-16 22:09] LABS: ~Lactic Acid-LAB USE ONLY 3.3 mmol/L (0.5-2.0)
--- NOTE | 2022-09-16 22:12 | PC.NURSE ---
Telephone call received from lab with critical lactic level 3.3. Dr. Hoover notified.
[2022-09-16 23:43] LABS: Reflex Lactate? 2 Y
[2022-09-17] VITALS (7 sets, daily range): BP systolic 117–148; BP diastolic 58–90; PULSE 87–104; RESP 18–20; TEMP 36.1–37.1; O2SAT 91–98; BMI 36.5
[2022-09-17 01:02] LABS: ~Lactic Acid-LAB USE ONLY 2.2 mmol/L (0.5-2.0)
--- NOTE | 2022-09-17 01:05 | PC.NURSE ---
Addendum entered by Marion Zapata 09/17/22 01:08: provider and Landy RN notified Original Note: took call from Raymundo from lab with critical results- lactic acid 2.2
[2022-09-17] MEDS: Lactulose 320 GM/480 ML SOLUTION 200 GM PR (01:27)
[2022-09-17] MEDS: 0.9 % Sodium Chloride Flush 3 ML SYRINGE IVFLUSH ×3 (01:27→17:37)
--- NOTE | 2022-09-17 01:32 | PC.NURSE ---
Lactulose administered AL, patient was not able to retain AL solution and most of it leaked out, provider notified.
[2022-09-17] MEDS: PHENobarbitaL sodium 130 MG/ML VIAL IM Q3Hx2 262 MG IM ×2 (01:40→04:12)
[2022-09-17] MEDS: Enoxaparin Sodium 80 MG/0.8 ML SYRINGE SUBCUT ×2 (01:46→12:56)
[2022-09-17 03:33] LABS: Glucose, Whole Blood 202 mg/dL (60-115)
[2022-09-17] MEDS: Insulin Lispro 100 UNIT/ML 3 ML VIAL SUBCUT ×4 (04:01→17:37)
[2022-09-17] MEDS: Ampicillin Sodium/Sulbactam Na 3 GM in 0.9 % Sodium Chloride 100 ML IV ×4 (04:02→21:27)
[2022-09-17 04:51] LABS: MANUAL DIFF FLAG NO
[2022-09-17 04:52] LABS: Basophils Absolute Auto 0.1 X10*3/uL (0.0-0.2); Basophils Percent Auto 0.4 % (0-2); Eosinophils Percent Auto 0.2 % (0-4); Hematocrit 38.6 % (42.0-52.0); Hemoglobin 12.3 g/dl (14.0-18.0); Imm Gran Abs Auto 0.21 X10*3/uL (0.00-0.03); Imm Gran Pct Auto 1.3 % (0.0-0.4); Lymphocytes Absolute Auto 1.1 X10*3/uL (1.2-4.9); Lymphocytes Percent Auto 6.7 % (20-40); Mean Corpuscular HGB Conc 31.9 g/dl (31.0-36.0); Mean Corpuscular Hemoglobin 27.1 pg (27.0-33.0); Mean Platelet Volume 11.1 fL (9.4-12.4); Monocytes Absolute Auto 0.8 X10*3/uL (0.1-1.2); Monocytes Percent Auto 4.6 % (2-11); NRBC Pct Auto 0.3 /100WBC (0.0-0.2); Neutrophils Absolute Auto 14.2 x10*3/uL (2.0-8.3); Neutrophils Percent Auto 86.8 % (45-73); Platelet Count 343 X10*3/uL (160-400); Red Blood Count 4.54 X10*6/uL (4.60-5.80); Red Cell Distribution Width 18.5 % (11.0-16.0); White Blood Count 16.4 X10*3/uL (4.8-10.8)
[2022-09-17 05:30] LABS: Anion Gap 19 (12-20); Blood Urea Nitrogen 47 mg/dL (9-16); Calcium 7.6 mg/dL (8.4-10.2); Carbon Dioxide 28 mmol/L (22-29); Chloride 97 mmol/L (96-108); Creatinine Clr Calc Pharmacy 55.6; Estimated Glomerular Filt Rate 58; Glucose Random 198 mg/dL (60-115); Potassium 3.7 mmol/L (3.3-5.1); Sodium 140 mmol/L (135-145)
--- NOTE | 2022-09-17 06:22 | PC.NURSE ---
Patient's HR 80-90, Cardizem drip on hold, Dr. Mcintyre made aware. Patient pulled out IV line from L AC, repeatedly removing client renewal specialist leads, and attempting to pull out his F/C with small amount of bleeding noted from urethral opening. This RN and Irish speaking customer data technician unable to redirect patient at this time. Dr. Mcintyre notified, order for non-behavioral restraints to upper extremities obtained and restraints applied. Nurse to nurse report called to [facility] RN Den.
--- NOTE | 2022-09-17 07:00 | CA_ITS ---
Transthoracic Echocardiogram Patient (Last, First, Middle): Abimael Georges A Gender: Male Date of : 1950 Age: 71 Procedure Date: 09/17/2022 Procedure Type: Transthoracic Echocardiogram Location: [facility] Height: 177.8 cm Weight: 81.65 kg BSA: 2.00 m2 Heart Rate: bpm BP: 119 / 83 mmHg Foam Rubber Mixer: TO Referring MD: Cordell Mcintyre MD Grape Picker: Xavier Menon MD Symptoms: CHF Study Quality: Fair/Contrast ECG Rhythm: Undetermined Conclusions: - 1. Mildly dilated left ventricle with severe LV systolic dysfunction with LVEF of 20-25% 2. Moderately reduced RV systolic function 3. Severely dilated left atrium 4. Moderately elevated right ventricular systolic pressure with significantly elevated right atrial pressures 5. No gross pericardial effusion Findings Procedure Information Contrast agent, definity, is being given per protocol without apparent complications. Left Ventricle Mildly increased left ventricular cavity size. There is mildly increased left ventricular wall thickness. The visually estimated ejection fraction is between 20-25%. Diastolic function is indeterminate on the basis of available data. There is moderate septal asymmetric hypertrophy. Right Ventricle Mildly increased right ventricular cavity size. There is moderately decreased right ventricular systolic function. Atria The left atrium is severely dilated. There is no evidence of interatrial shunt. The right atrium is moderately dilated. Aortic Valve There is mild calcification of the aortic valve. There is mild thickening of the aortic valve. There is no aortic valve stenosis. There is no aortic valve regurgitation. Mitral Valve There is mild anterior and posterior mitral leaflet thickening. There is mild mitral annular calcification. There is trace mitral valve regurgitation. There is no mitral valve stenosis. Pulmonic Valve The pulmonic valve is likely normal. There is trace pulmonic valve regurgitation. Tricuspid Valve Normal tricuspid valve structure. There is mild tricuspid valve regurgitation. Significantly elevated right atrial pressure. Moderate pulmonary hypertension is present. Great Vessels All visible segments of the aorta are normal in size. The pulmonary artery was not well visualized. Venous The inferior vena cava is moderately dilated and does not collapse with inspiration. Pericardium/Pleural There is no evidence of pericardial effusion. Prior Study Comparison Changes noted compared to prior study dated: 07/01/2021. RV systolic function and right atrial filling pressures are increased Measurements 2D Linear Measurements IVSd: 1.74 0.6-0.9/0.6-1.0 cm LVIDd: 5.63 3.9-5.3/4.2-5.9 cm LVIDd Index: 2.82 2.4-3.2/2.2-3.1 cm/m2 LVIDs: 4.70 2.0-3.6 cm LVPWd: 1.16 0.7-1.1 cm LA Diam: 4.60 2.7-3.8/3.0-4.0 cm LAIDs Index: 2.30 1.5-2.3 cm/m2 LV Mass: 459.88 67-162/88-224 g LV Mass Index: 229.94 43-95/49-115 g/m2 LVOT Diam: 2.10 3.0+(-)1.3 cm 2D Systolic Function EF 4C: 23.20 >55% EF 2C: 19.20 >55% EF BiP: 21.60 >55% Mitral Valve MV Pk E: 0.91 MV Decel Time: 163.00 E'Medial: 3.37 E/E' Med: 26.90 PHT: 48.00 MVA PHT: 4.58 Decel Hardin: 5.59 Aortic Valve AoV Pk Riley: 1.26 AoV Pk Grad: 6.00 LVOT LVOT Pk Riley: 0.95 LVOT Mn Riley: 0.55 LVOT VTI: 0.14 LVOT Pk Grad: 4.00 LVOT Mn Grad: 2.00 LVOT Diam: 2.10 LVOT Area: 3.46 Diastolic Function MV Pk E: 0.91 E'Medial: 3.37 E/E' Med: 26.90 Right Ventricle TAPSE (mm): 12.00 TVS' Riley: 5.03 Tricuspid Valve TR Pk Riley: 3.12 TR Pk Grad: 39.00 RA Press: 15.00 RVSP: 54.00 Great Vessels Aorta Sinus of Valsalva: 3.85 2.0-3.5 cm Ao Asc: 3.30 2.1-3.4 cm Updated in Other Vendor System with Status of Final Xavier Menon MD electronically signed on 09/17/2022 4:16:28 PM with status of Final
[2022-09-17 07:31] LABS: Glucose, Whole Blood 237 mg/dL (60-115)
[2022-09-17] MEDS: Thiamine HCL 100 MG in 0.9 % Sodium Chloride 100 ML 202 MG IV (07:32)
[2022-09-17] MEDS: PHENobarbitaL 15 MG TABLET 45 MG PO ×2 (07:33→21:27)
[2022-09-17] MEDS: Folic Acid 1 MG TABLET PO (07:33)
[2022-09-17 11:24] LABS: Glucose, Whole Blood 210 mg/dL (60-115)
--- NOTE | 2022-09-17 14:05 | HO.WOUNDCONS ---
History of Present Illness Data of Consult Service Date: 09/17/22 Requesting physician: Cordell Mcintyre Primary Care Provider: Unknown Physician HPI Reason for consult: Lower leg wounds 71-year-old male with pertinent history of congestive heart failure with reduced ejection fraction, [id number] diabetes mellitus, atrial fibrillation on Eliquis, mixed hyperlipidemia, essential hypertension who was brought by EMS after he was found for decreased responsiveness. He is being admitted and worked up for acute cerebral vascular accident and on examination was noted to have very thickened skin on his lower extremities and as result wound consult was carried out for this. Review of Systems Review of Systems: Yes Unobtainable due to mental status [facility] Medical History Alcohol use disorder, severe, dependence Atrial fibrillation with rapid ventricular response Atrial fibrillation with slow ventricular response Cardiomyopathy CHF (congestive heart failure) Chronic atrial fibrillation Chronic systolic CHF (congestive heart failure) Depressive disorder Diabetes HTN (hypertension) LBBB (left bundle branch block) Family History Mother HTN (hypertension) Father CAD (coronary artery disease) HTN (hypertension) Social History Household Members: None Housing: Apartment Do you presently have visiting nurse or other home services: No Alcohol intake: current Alcohol intake frequency: former alcohol drinker Alcohol type: hard liquor Patient Tobacco Use Status: Former Tobacco user Tobacco use type: Cigarette Advance Directives Date on File: 06/27/21 service: No Current occupational status: retired Meds Allergies Allergy/AdvReac Type Severity Reaction Status Date / Time No Known Allergies Allergy Verified 09/22/21 12:18 Active Medications: Current Medications Acetaminophen (Acetaminophen 325 Mg Tablet) 650 mg PO Q6H PRN PRN Reason: Pain, Mild (Pain Scale 1-3) Dextrose (Dextrose 50 % 25 Gm/50 Ml Syringe) 25 gm IVPUSH Q15M PRN; Protocol PRN Reason: per Hypoglycemia Standing Ord. Enoxaparin Sodium (Enoxaparin Sodium 80 Mg/0.8 Ml Syringe) 80 mg 1 mg/kg (80 mg) SUBCUT Q12H JESUS Last Admin: 09/17/22 12:56 Dose: 80 mg Folic Acid (Folic Acid 1 Mg Tablet) 1 mg PO DAILY [facility] Last Admin: 09/17/22 07:33 Dose: 1 mg Glucose (Glucose Gel 15 Gm Gel..Gram.) 15 gm PO Q15M PRN; Protocol PRN Reason: per Hypoglycemia Standing Ord. Thiamine HCl 100 mg/ Sodium (Chloride) 101 mls @ 202 mls/hr IV DAILY [facility] Last Infusion: 09/17/22 08:23 Dose: Infused Ampicillin Sodium/Sulbactam (Sodium 3 gm/ Sodium Chloride) 100 mls @ 200 mls/hr IV Q6H [facility] Last Infusion: 09/17/22 08:28 Dose: Infused Diltiazem HCl 125 mg/ Sodium (Chloride) 125 mls @ 0 mls/hr IVCONT .Q0M [facility]; Protocol Last Titration: 09/17/22 13:06 Dose: Infused Insulin Human Lispro (Insulin Lispro 100 Unit/Ml 3 Ml Vial) 0 unit SUBCUT Q6H [facility]; Protocol Last Admin: 09/17/22 07:34 Dose: 6 unit Lactic Acid (Ammonium Lactate 12 % Cream 140 Gm Tube) 1 appl TOPICAL DAILY [facility]; Protocol Melatonin (Melatonin 3 Mg Tablet) 6 mg PO BEDTIME PRN PRN Reason: Insomnia Ondansetron HCl (Ondansetron Hcl 4 Mg/2 Ml Vial) 4 mg IVPUSH Q8H PRN PRN Reason: Nausea and Vomiting Pharmacy Consult (Consult Rx Perform Med Rec) 1 each MISCELLANE ONCE PRN PRN Reason: Consult order Pharmacy Consult (Consult Rx Etoh Phenob Im/Po) 1 each MISCELLANE ONCE PRN; Protocol PRN Reason: Consult order Phenobarbital (Phenobarbital 15 Mg Tablet) 45 mg PO BID [facility] Stop: 09/18/22 21:01 Last Admin: 09/17/22 07:33 Dose: 45 mg Phenobarbital (Phenobarbital 30 Mg Tablet) 30 mg PO BID [facility] Stop: 09/20/22 21:01 Phenobarbital (Phenobarbital 15 Mg Tablet) 15 mg PO DAILY [facility] Stop: 09/22/22 09:01 Sodium Chloride (0.9 % Sodium Chloride Flush 3 Ml Syringe) 3 ml IVFLUSH QSHIFT [facility] Last Admin: 09/17/22 08:01 Dose: 3 ml Home Medications Medication Instructions Recorded Confirmed Last Taken Type amlodipine 10 mg tablet 1 tab PO DAILY 09/17/22 09/17/22 Unknown History aspirin 81 mg tablet,delayed 81 mg PO BEDTIME 09/17/22 09/17/22 Unknown History release folic acid 1 mg tablet 1 mg PO DAILY 09/17/22 09/17/22 Unknown History multivitamin 1 tab PO BEDTIME 09/17/22 09/17/22 Unknown History thiamine HCl (vitamin B1) 100 mg 100 mg PO DAILY 09/17/22 09/17/22 Unknown History tablet Physical Exam Vital Signs and Narrative: Vital Signs: Last Vital Signs Temp 97.2 F 09/17/22 12:00 Pulse 104 H 09/17/22 12:00 Resp 20 09/17/22 12:00 BP 128/90 H 09/17/22 12:00 Pulse Ox 94 09/17/22 12:00 O2 Del Method 09/17/22 12:00 O2 Flow Rate 2 09/17/22 06:42 BMI result Body Mass Index 36.5 Skin: Other: Patient has bilateral lower legs very dry with crusty thickened skin. There is no true open wound that is noted at this point bilateral legs are not edematous. Palpable pulses are not noted on the feet but there are no toe injuries wounds or cool sensation to suggest compromise in the arterial flow. The thickened scaly skin this significant bilaterally. The patient may have some issues with venous hypertension but I am not convinced that this is what is causing his issue with the thickened skin. This seems to be a separate issue. Results Labs 09/17/22 04:19 09/17/22 04:19 Labs: Laboratory Results - last 24 hr 09/16/22 09/16/22 09/16/22 13:43 16:05 16:08 MCV MCH MCHC RDW Plt Count MPV Immature Gran % (Auto) Neut % (Auto) Lymph % (Auto) [place] % (Auto) Eos % (Auto) Baso % (Auto) Lymph # (Auto) [place] # (Auto) Eos # (Auto) Baso # (Auto) Abs Immat Gran (auto) Absolute Neuts (auto) Absolute Nucleated RBC Nucleated RBC % (auto) PT 10.3 INR 0.9 D-Dimer High Sensitivty VBG pH VBG pCO2 VBG pO2 VBG HCO3 VBG O2 Saturation VBG Base Excess Anion Gap Estim Creat Clear Calc Estimated GFR POC Glucose Random Glucose Lactic Acid Lactic Acid F/U @ 2Hr Lactic Acid F/U @ 4Hr Calcium Magnesium Total Bilirubin Direct Bilirubin AST ALT Alkaline Phosphatase Ammonia Troponin I High Sens B-Natriuretic Peptide Total Protein Albumin TSH Urine Color Urine Appearance Urine pH Ur Specific [place] Urine Protein Urine Glucose (UA) Urine Ketones Urine Blood Urine Nitrite Ur Leukocyte Esterase Urine RBC Urine WBC Ur Squamous Epith Cells Urine Bacteria Hyaline Casts Urine Opiates Screen Urine Fentanyl Screen Ur Barbiturates Screen Ur Phencyclidine Scrn Ur Amphetamines Screen U Benzodiazepines Scrn Urine Cocaine Screen U Marijuana (THC) Screen Acetone, Qual Negative COVID-19 (BRAVO) Negative COVID-19 Clin Com See Note 09/16/22 09/16/22 09/16/22 18:48 18:48 19:00 MCV MCH MCHC RDW Plt Count MPV Immature Gran % (Auto) Neut % (Auto) Lymph % (Auto) [place] % (Auto) Eos % (Auto) Baso % (Auto) Lymph # (Auto) [place] # (Auto) Eos # (Auto) Baso # (Auto) Abs Immat Gran (auto) Absolute Neuts (auto) Absolute Nucleated RBC Nucleated RBC % (auto) PT INR D-Dimer High Sensitivty VBG pH VBG pCO2 VBG pO2 VBG HCO3 VBG O2 Saturation VBG Base Excess Anion Gap 19 Estim Creat Clear Calc 49.2 Estimated GFR 51 POC Glucose Random Glucose 153 H Lactic Acid Lactic Acid F/U @ 2Hr Lactic Acid F/U @ 4Hr Calcium 7.9 L Magnesium 1.8 Total Bilirubin 2.6 H Direct Bilirubin 1.6 H AST 58 H ALT 54 H Alkaline Phosphatase 198 H Ammonia Troponin I High Sens B-Natriuretic Peptide Total Protein 6.3 L Albumin 2.8 L TSH 1.41 Urine Color Dark Yellow Urine Appearance Clear Urine pH 5.5 Ur Specific [place] 1.020 Urine Protein 300 (3+) H Urine Glucose (UA) Negative Urine Ketones Negative Urine Blood Moderate (2+) H Urine Nitrite Negative Ur Leukocyte Esterase Negative Urine RBC 3-5 H Urine WBC 0-5 Ur Squamous Epith Cells 0-2 Urine Bacteria None Seen Hyaline Casts >20 Urine Opiates Screen Not Detected Urine Fentanyl Screen Not Detected Ur Barbiturates Screen Not Detected Ur Phencyclidine Scrn Not Detected Ur Amphetamines Screen Not Detected U Benzodiazepines Scrn Not Detected Urine Cocaine Screen Not Detected U Marijuana (THC) Screen Not Detected Acetone, Qual COVID-19 (BRAVO) COVID-19 Clin Com 09/16/22 09/16/22 09/16/22 19:00 19:00 19:00 MCV MCH MCHC RDW Plt Count MPV Immature Gran % (Auto) Neut % (Auto) Lymph % (Auto) [place] % (Auto) Eos % (Auto) Baso % (Auto) Lymph # (Auto) [place] # (Auto) Eos # (Auto) Baso # (Auto) Abs Immat Gran (auto) Absolute Neuts (auto) Absolute Nucleated RBC Nucleated RBC % (auto) PT INR D-Dimer High Sensitivty 513 VBG pH VBG pCO2 VBG pO2 VBG HCO3 VBG O2 Saturation VBG Base Excess Anion Gap Estim Creat Clear Calc Estimated GFR POC Glucose Random Glucose Lactic Acid Lactic Acid F/U @ 2Hr Lactic Acid F/U @ 4Hr Calcium Magnesium Total Bilirubin Direct Bilirubin AST ALT Alkaline Phosphatase Ammonia Troponin I High Sens 147.9 H* B-Natriuretic Peptide 1732 H Total Protein Albumin TSH Urine Color Urine Appearance Urine pH Ur Specific [place] Urine Protein Urine Glucose (UA) Urine Ketones Urine Blood Urine Nitrite Ur Leukocyte Esterase Urine RBC Urine WBC Ur Squamous Epith Cells Urine Bacteria Hyaline Casts Urine Opiates Screen Urine Fentanyl Screen Ur Barbiturates Screen Ur Phencyclidine Scrn Ur Amphetamines Screen U Benzodiazepines Scrn Urine Cocaine Screen U Marijuana (THC) Screen Acetone, Qual COVID-19 (BRAVO) COVID-19 AwoX 09/16/22 09/16/22 09/16/22 19:00 19:00 19:03 MCV MCH MCHC RDW Plt Count MPV Immature Gran % (Auto) Neut % (Auto) Lymph % (Auto) [place] % (Auto) Eos % (Auto) Baso % (Auto) Lymph # (Auto) [place] # (Auto) Eos # (Auto) Baso # (Auto) Abs Immat Gran (auto) Absolute Neuts (auto) Absolute Nucleated RBC Nucleated RBC % (auto) PT INR D-Dimer High Sensitivty VBG pH 7.46 H VBG pCO2 31 VBG pO2 65 VBG HCO3 22 VBG O2 Saturation 90.0 VBG Base Excess -0.2 Anion Gap Estim Creat Clear Calc Estimated GFR POC Glucose Random Glucose Lactic Acid 4.2 H* Lactic Acid F/U @ 2Hr Lactic Acid F/U @ 4Hr Calcium Magnesium Total Bilirubin Direct Bilirubin AST ALT Alkaline Phosphatase Ammonia 73 H Troponin I High Sens B-Natriuretic Peptide Total Protein Albumin TSH Urine Color Urine Appearance Urine pH Ur Specific [place] Urine Protein Urine Glucose (UA) Urine Ketones Urine Blood Urine Nitrite Ur Leukocyte Esterase Urine RBC Urine WBC Ur Squamous Epith Cells Urine Bacteria Hyaline Casts Urine Opiates Screen Urine Fentanyl Screen Ur Barbiturates Screen Ur Phencyclidine Scrn Ur Amphetamines Screen U Benzodiazepines Scrn Urine Cocaine Screen U Marijuana (THC) Screen Acetone, Qual COVID-19 (BRAVO) COVID-19 Clin Com 09/16/22 09/16/22 09/17/22 20:09 21:39 00:28 MCV MCH MCHC RDW Plt Count MPV Immature Gran % (Auto) Neut % (Auto) Lymph % (Auto) [place] % (Auto) Eos % (Auto) Baso % (Auto) Lymph # (Auto) [place] # (Auto) Eos # (Auto) Baso # (Auto) Abs Immat Gran (auto) Absolute Neuts (auto) Absolute Nucleated RBC Nucleated RBC % (auto) PT INR D-Dimer High Sensitivty VBG pH VBG pCO2 VBG pO2 VBG HCO3 VBG O2 Saturation VBG Base Excess Anion Gap Estim Creat Clear Calc Estimated GFR POC Glucose 138 H Random Glucose Lactic Acid Lactic Acid F/U @ 2Hr 3.3 H* Lactic Acid F/U @ 4Hr 2.2 H* Calcium Magnesium Total Bilirubin Direct Bilirubin AST ALT Alkaline Phosphatase Ammonia Troponin I High Sens B-Natriuretic Peptide Total Protein Albumin TSH Urine Color Urine Appearance Urine pH Ur Specific [place] Urine Protein Urine Glucose (UA) Urine Ketones Urine Blood Urine Nitrite Ur Leukocyte Esterase Urine RBC Urine WBC Ur Squamous Epith Cells Urine Bacteria Hyaline Casts Urine Opiates Screen Urine Fentanyl Screen Ur Barbiturates Screen Ur Phencyclidine Scrn Ur Amphetamines Screen U Benzodiazepines Scrn Urine Cocaine Screen U Marijuana (THC) Screen Acetone, Qual COVID-19 (BRAVO) COVID-19 Clin Com 09/17/22 09/17/22 09/17/22 03:28 04:19 04:19 MCV 85.0 MCH 27.1 MCHC 31.9 RDW 18.5 H Plt Count 343 MPV 11.1 Immature Gran % (Auto) 1.3 H Neut % (Auto) 86.8 H Lymph % (Auto) 6.7 L [place] % (Auto) 4.6 Eos % (Auto) 0.2 Baso % (Auto) 0.4 Lymph # (Auto) 1.1 L [place] # (Auto) 0.8 Eos # (Auto) 0.0 Baso # (Auto) 0.1 Abs Immat Gran (auto) 0.21 H Absolute Neuts (auto) 14.2 H Absolute Nucleated RBC 0.050 H Nucleated RBC % (auto) 0.3 H PT INR D-Dimer High Sensitivty VBG pH VBG pCO2 VBG pO2 VBG HCO3 VBG O2 Saturation VBG Base Excess Anion Gap 19 Estim Creat Clear Calc 55.6 Estimated GFR 58 POC Glucose 202 H Random Glucose 198 H Lactic Acid Lactic Acid F/U @ 2Hr Lactic Acid F/U @ 4Hr Calcium 7.6 L Magnesium Total Bilirubin Direct Bilirubin AST ALT Alkaline Phosphatase Ammonia Troponin I High Sens B-Natriuretic Peptide Total Protein Albumin TSH Urine Color Urine Appearance Urine pH Ur Specific [place] Urine Protein Urine Glucose (UA) Urine Ketones Urine Blood Urine Nitrite Ur Leukocyte Esterase Urine RBC Urine WBC Ur Squamous Epith Cells Urine Bacteria Hyaline Casts Urine Opiates Screen Urine Fentanyl Screen Ur Barbiturates Screen Ur Phencyclidine Scrn Ur Amphetamines Screen U Benzodiazepines Scrn Urine Cocaine Screen U Marijuana (THC) Screen Acetone, Qual COVID-19 (BRAVO) COVID-19 Clin Com 09/17/22 09/17/22 07:17 11:10 MCV MCH MCHC RDW Plt Count MPV Immature Gran % (Auto) Neut % (Auto) Lymph % (Auto) [place] % (Auto) Eos % (Auto) Baso % (Auto) Lymph # (Auto) [place] # (Auto) Eos # (Auto) Baso # (Auto) Abs Immat Gran (auto) Absolute Neuts (auto) Absolute Nucleated RBC Nucleated RBC % (auto) PT INR D-Dimer High Sensitivty VBG pH VBG pCO2 VBG pO2 VBG HCO3 VBG O2 Saturation VBG Base Excess Anion Gap Estim Creat Clear Calc Estimated GFR POC Glucose 237 H 210 H Random Glucose Lactic Acid Lactic Acid F/U @ 2Hr Lactic Acid F/U @ 4Hr Calcium Magnesium Total Bilirubin Direct Bilirubin AST ALT Alkaline Phosphatase Ammonia Troponin I High Sens B-Natriuretic Peptide Total Protein Albumin TSH Urine Color Urine Appearance Urine pH Ur Specific [place] Urine Protein Urine Glucose (UA) Urine Ketones Urine Blood Urine Nitrite Ur Leukocyte Esterase Urine RBC Urine WBC Ur Squamous Epith Cells Urine Bacteria Hyaline Casts Urine Opiates Screen Urine Fentanyl Screen Ur Barbiturates Screen Ur Phencyclidine Scrn Ur Amphetamines Screen U Benzodiazepines Scrn Urine Cocaine Screen U Marijuana (THC) Screen Acetone, Qual COVID-19 (BRAVO) COVID-19 Clin Com Imaging Radiologist's Impressions: Impressions Head CT 09/16/22 14:36 IMPRESSION: Left frontal age-indeterminate infarct. This was not seen on the most recent 2021 study. No other significant abnormality. Abdomen Ultrasound 09/16/22 15:16 IMPRESSION: No significant abnormality appreciated with limitations as described. Chest X-Ray 09/16/22 19:15 IMPRESSION: Mild cardiomegaly. No acute process seen. KUB X-Ray 09/17/22 13:13 IMPRESSION: Nonobstructive bowel gas pattern. No radiopaque foreign body. Assessment and Plan (1) Dry skin dermatitis: Status: Acute Plan 71-year-old male with abnormally dry thickened lower extremities skin. This does not appear to be skin consistent with venous hypertension and he has no significant lower leg edema. There are no open wounds. Would recommend debriding moisture arising lotion as per pharmacy and apply it daily to lower extremities. His main issue are his medical issues and these are being addressed by the medical team. No need for compression at this point is his legs are not edematous and he is on bedrest Time Spent With Patient Time: Total time managing care of this patient today ____ minutes.
[2022-09-17] MEDS: Ammonium Lactate 12 % Cream 140 GM TUBE 1 APPL TOPICAL (14:15)
--- NOTE | 2022-09-17 15:38 | P.PNIM_ITS ---
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 who last saw him 4 days prior to his presentation to ER, [id number] found him on floor yesterday she was unable to lift him up therefore called EMS and sent him to the emergency room patient drinks 1 gal of vodka daily, no history of smoking ambulates holding on to furniture, has a walker and wheelchair at home patient takes is on medications, pharmacy notified that patient has not filled out picked up his medications since February 2022 family thinks he has been taking his medications regularly Review of Systems Review of Systems: Yes Unobtainable due to mental status Physical Exam Vital Signs: Vital Signs: Last Vital Signs Temp 97.2 F 09/17/22 12:00 Pulse 104 H 09/17/22 12:00 Resp 20 09/17/22 12:00 BP 128/90 H 09/17/22 12:00 Pulse Ox 94 09/17/22 12:00 O2 Del Method 09/17/22 12:00 O2 Flow Rate 2 09/17/22 06:42 BMI result Body Mass Index 36.5 Const: Other: General lethargic response to verbal stimuli, in no acute distress. Neck supple no JVD. CVS regular rate rhythm, Respiratory lungs clear to auscultation, no respiratory distress, no wheeze, no rhonchi. Gastrointestinal abdomen soft, nontender, bowel sounds audible Extremities no edema, dry scaly skin. Neuro speech garbled, moved both upper extremities, unable to do neuro exam due to lethargy and somnolence, patient recognized [id number] at bedside, aware he is in hospital Objective Data Active Medications Acetaminophen (Acetaminophen 325 Mg Tablet) 650 mg PO Q6H PRN PRN Reason: Pain, Mild (Pain Scale 1-3) Dextrose (Dextrose 50 % 25 Gm/50 Ml Syringe) 25 gm IVPUSH Q15M PRN; Protocol PRN Reason: per Hypoglycemia Standing Ord. Enoxaparin Sodium (Enoxaparin Sodium 80 Mg/0.8 Ml Syringe) 80 mg 1 mg/kg (80 mg) SUBCUT Q12H [facility] Last Admin: 09/17/22 12:56 Dose: 80 mg Documented By: ROBBY Folic Acid (Folic Acid 1 Mg Tablet) 1 mg PO DAILY [facility] Last Admin: 09/17/22 07:33 Dose: 1 mg Documented By: ROBBY Glucose (Glucose Gel 15 Gm Gel..Gram.) 15 gm PO Q15M PRN; Protocol PRN Reason: per Hypoglycemia Standing Ord. Thiamine HCl 100 mg/ Sodium (Chloride) 101 mls @ 202 mls/hr IV DAILY [facility] Last Infusion: 09/17/22 08:23 Dose: 0 mls/hr Documented By: ROBBY Ampicillin Sodium/Sulbactam (Sodium 3 gm/ Sodium Chloride) 100 mls @ 200 mls/hr IV Q6H [facility] Last Infusion: 09/17/22 14:56 Dose: 0 mls/hr Documented By: ROBBY Diltiazem HCl 125 mg/ Sodium (Chloride) 125 mls @ 0 mls/hr IVCONT .Q0M [facility]; Protocol Last Titration: 09/17/22 13:06 Dose: 0 mg/hr, 0 mls/hr Documented By: ROBBY Insulin Human Lispro (Insulin Lispro 100 Unit/Ml 3 Ml Vial) 0 unit SUBCUT Q6H [facility]; Protocol Last Admin: 09/17/22 14:34 Dose: 4 unit Documented By: RBOBY Lactic Acid (Ammonium Lactate 12 % Cream 140 Gm Tube) 1 appl TOPICAL DAILY [facility]; Protocol Last Admin: 09/17/22 14:15 Dose: 1 appl Documented By: ROBBY Melatonin (Melatonin 3 Mg Tablet) 6 mg PO BEDTIME PRN PRN Reason: Insomnia Ondansetron HCl (Ondansetron Hcl 4 Mg/2 Ml Vial) 4 mg IVPUSH Q8H PRN PRN Reason: Nausea and Vomiting Pharmacy Consult (Consult Rx Perform Med Rec) 1 each MISCELLANE ONCE PRN PRN Reason: Consult order Pharmacy Consult (Consult Rx Etoh Phenob Im/Po) 1 each MISCELLANE ONCE PRN; Protocol PRN Reason: Consult order Phenobarbital (Phenobarbital 15 Mg Tablet) 45 mg PO BID [facility] Stop: 09/18/22 21:01 Last Admin: 09/17/22 07:33 Dose: 45 mg Documented By: ROBBY Phenobarbital (Phenobarbital 30 Mg Tablet) 30 mg PO BID [facility] Stop: 09/20/22 21:01 Phenobarbital (Phenobarbital 15 Mg Tablet) 15 mg PO DAILY [facility] Stop: 09/22/22 09:01 Sodium Chloride (0.9 % Sodium Chloride Flush 3 Ml Syringe) 3 ml IVFLUSH QSHIFT JESUS Last Admin: 09/17/22 08:01 Dose: 3 ml Documented By: ROBBY Labs 09/17/22 04:19 09/17/22 04:19 Labs: Laboratory Results - last 24 hr 09/16/22 09/16/22 09/16/22 16:05 16:08 18:48 MCV MCH MCHC RDW Plt Count MPV Immature Gran % (Auto) Neut % (Auto) Lymph % (Auto) Garrard % (Auto) Eos % (Auto) Baso % (Auto) Lymph # (Auto) Garrard # (Auto) Eos # (Auto) Baso # (Auto) Abs Immat Gran (auto) Absolute Neuts (auto) Absolute Nucleated RBC Nucleated RBC % (auto) PT 10.3 INR 0.9 D-Dimer High Sensitivty VBG pH VBG pCO2 VBG pO2 VBG HCO3 VBG O2 Saturation VBG Base Excess Anion Gap Estim Creat Clear Calc Estimated GFR POC Glucose Random Glucose Lactic Acid Lactic Acid F/U @ 2Hr Lactic Acid F/U @ 4Hr Calcium Magnesium Total Bilirubin Direct Bilirubin AST ALT Alkaline Phosphatase Ammonia Troponin I High Sens B-Natriuretic Peptide Total Protein Albumin TSH Urine Color Urine Appearance Urine pH Ur Specific [place] Urine Protein Urine Glucose (UA) Urine Ketones Urine Blood Urine Nitrite Ur Leukocyte Esterase Urine RBC Urine WBC Ur Squamous Epith Cells Urine Bacteria Hyaline Casts Urine Opiates Screen Not Detected Urine Fentanyl Screen Not Detected Ur Barbiturates Screen Not Detected Ur Phencyclidine Scrn Not Detected Ur Amphetamines Screen Not Detected U Benzodiazepines Scrn Not Detected Urine Cocaine Screen Not Detected U Marijuana (THC) Screen Not Detected COVID-19 (BRAVO) Negative COVID-19 Clin Com See Note 09/16/22 09/16/22 09/16/22 18:48 19:00 19:00 MCV MCH MCHC RDW Plt Count MPV Immature Gran % (Auto) Neut % (Auto) Lymph % (Auto) Garrard % (Auto) Eos % (Auto) Baso % (Auto) Lymph # (Auto) Garrard # (Auto) Eos # (Auto) Baso # (Auto) Abs Immat Gran (auto) Absolute Neuts (auto) Absolute Nucleated RBC Nucleated RBC % (auto) PT INR D-Dimer High Sensitivty VBG pH VBG pCO2 VBG pO2 VBG HCO3 VBG O2 Saturation VBG Base Excess Anion Gap 19 Estim Creat Clear Calc 49.2 Estimated GFR 51 POC Glucose Random Glucose 153 H Lactic Acid Lactic Acid F/U @ 2Hr Lactic Acid F/U @ 4Hr Calcium 7.9 L Magnesium 1.8 Total Bilirubin 2.6 H Direct Bilirubin 1.6 H AST 58 H ALT 54 H Alkaline Phosphatase 198 H Ammonia Troponin I High Sens 147.9 H* B-Natriuretic Peptide Total Protein 6.3 L Albumin 2.8 L TSH 1.41 Urine Color Dark Yellow Urine Appearance Clear Urine pH 5.5 Ur Specific [place] 1.020 Urine Protein 300 (3+) H Urine Glucose (UA) Negative Urine Ketones Negative Urine Blood Moderate (2+) H Urine Nitrite Negative Ur Leukocyte Esterase Negative Urine RBC 3-5 H Urine WBC 0-5 Ur Squamous Epith Cells 0-2 Urine Bacteria None Seen Hyaline Casts >20 Urine Opiates Screen Urine Fentanyl Screen Ur Barbiturates Screen Ur Phencyclidine Scrn Ur Amphetamines Screen U Benzodiazepines Scrn Urine Cocaine Screen U Marijuana (THC) Screen COVID-19 (BRAVO) COVID-19 Clin Com 09/16/22 09/16/22 09/16/22 19:00 19:00 19:00 MCV MCH MCHC RDW Plt Count MPV Immature Gran % (Auto) Neut % (Auto) Lymph % (Auto) Garrard % (Auto) Eos % (Auto) Baso % (Auto) Lymph # (Auto) Garrard # (Auto) Eos # (Auto) Baso # (Auto) Abs Immat Gran (auto) Absolute Neuts (auto) Absolute Nucleated RBC Nucleated RBC % (auto) PT INR D-Dimer High Sensitivty 513 VBG pH VBG pCO2 VBG pO2 VBG HCO3 VBG O2 Saturation VBG Base Excess Anion Gap Estim Creat Clear Calc Estimated GFR POC Glucose Random Glucose Lactic Acid 4.2 H* Lactic Acid F/U @ 2Hr Lactic Acid F/U @ 4Hr Calcium Magnesium Total Bilirubin Direct Bilirubin AST ALT Alkaline Phosphatase Ammonia Troponin I High Sens B-Natriuretic Peptide 1732 H Total Protein Albumin TSH Urine Color Urine Appearance Urine pH Ur Specific [place] Urine Protein Urine Glucose (UA) Urine Ketones Urine Blood Urine Nitrite Ur Leukocyte Esterase Urine RBC Urine WBC Ur Squamous Epith Cells Urine Bacteria Hyaline Casts Urine Opiates Screen Urine Fentanyl Screen Ur Barbiturates Screen Ur Phencyclidine Scrn Ur Amphetamines Screen U Benzodiazepines Scrn Urine Cocaine Screen U Marijuana (THC) Screen COVID-19 (BRAVO) COVID-19 [employer] 09/16/22 09/16/22 09/16/22 19:00 19:03 20:09 MCV MCH MCHC RDW Plt Count MPV Immature Gran % (Auto) Neut % (Auto) Lymph % (Auto) Garrard % (Auto) Eos % (Auto) Baso % (Auto) Lymph # (Auto) Garrard # (Auto) Eos # (Auto) Baso # (Auto) Abs Immat Gran (auto) Absolute Neuts (auto) Absolute Nucleated RBC Nucleated RBC % (auto) PT INR D-Dimer High Sensitivty VBG pH 7.46 H VBG pCO2 31 VBG pO2 65 VBG HCO3 22 VBG O2 Saturation 90.0 VBG Base Excess -0.2 Anion Gap Estim Creat Clear Calc Estimated GFR POC Glucose 138 H Random Glucose Lactic Acid Lactic Acid F/U @ 2Hr Lactic Acid F/U @ 4Hr Calcium Magnesium Total Bilirubin Direct Bilirubin AST ALT Alkaline Phosphatase Ammonia 73 H Troponin I High Sens B-Natriuretic Peptide Total Protein Albumin TSH Urine Color Urine Appearance Urine pH Ur Specific [place] Urine Protein Urine Glucose (UA) Urine Ketones Urine Blood Urine Nitrite Ur Leukocyte Esterase Urine RBC Urine WBC Ur Squamous Epith Cells Urine Bacteria Hyaline Casts Urine Opiates Screen Urine Fentanyl Screen Ur Barbiturates Screen Ur Phencyclidine Scrn Ur Amphetamines Screen U Benzodiazepines Scrn Urine Cocaine Screen U Marijuana (THC) Screen COVID-19 (BRAVO) COVID-19 [employer] 09/16/22 09/17/22 09/17/22 21:39 00:28 03:28 MCV MCH MCHC RDW Plt Count MPV Immature Gran % (Auto) Neut % (Auto) Lymph % (Auto) Garrard % (Auto) Eos % (Auto) Baso % (Auto) Lymph # (Auto) Garrard # (Auto) Eos # (Auto) Baso # (Auto) Abs Immat Gran (auto) Absolute Neuts (auto) Absolute Nucleated RBC Nucleated RBC % (auto) PT INR D-Dimer High Sensitivty VBG pH VBG pCO2 VBG pO2 VBG HCO3 VBG O2 Saturation VBG Base Excess Anion Gap Estim Creat Clear Calc Estimated GFR POC Glucose 202 H Random Glucose Lactic Acid Lactic Acid F/U @ 2Hr 3.3 H* Lactic Acid F/U @ 4Hr 2.2 H* Calcium Magnesium Total Bilirubin Direct Bilirubin AST ALT Alkaline Phosphatase Ammonia Troponin I High Sens B-Natriuretic Peptide Total Protein Albumin TSH Urine Color Urine Appearance Urine pH Ur Specific [place] Urine Protein Urine Glucose (UA) Urine Ketones Urine Blood Urine Nitrite Ur Leukocyte Esterase Urine RBC Urine WBC Ur Squamous Epith Cells Urine Bacteria Hyaline Casts Urine Opiates Screen Urine Fentanyl Screen Ur Barbiturates Screen Ur Phencyclidine Scrn Ur Amphetamines Screen U Benzodiazepines Scrn Urine Cocaine Screen U Marijuana (THC) Screen COVID-19 (BRAVO) COVID-19 [employer] Com 09/17/22 09/17/22 09/17/22 04:19 04:19 07:17 MCV 85.0 MCH 27.1 MCHC 31.9 RDW 18.5 H Plt Count 343 MPV 11.1 Immature Gran % (Auto) 1.3 H Neut % (Auto) 86.8 H Lymph % (Auto) 6.7 L Garrard % (Auto) 4.6 Eos % (Auto) 0.2 Baso % (Auto) 0.4 Lymph # (Auto) 1.1 L Garrard # (Auto) 0.8 Eos # (Auto) 0.0 Baso # (Auto) 0.1 Abs Immat Gran (auto) 0.21 H Absolute Neuts (auto) 14.2 H Absolute Nucleated RBC 0.050 H Nucleated RBC % (auto) 0.3 H PT INR D-Dimer High Sensitivty VBG pH VBG pCO2 VBG pO2 VBG HCO3 VBG O2 Saturation VBG Base Excess Anion Gap 19 Estim Creat Clear Calc 55.6 Estimated GFR 58 POC Glucose 237 H Random Glucose 198 H Lactic Acid Lactic Acid F/U @ 2Hr Lactic Acid F/U @ 4Hr Calcium 7.6 L Magnesium Total Bilirubin Direct Bilirubin AST ALT Alkaline Phosphatase Ammonia Troponin I High Sens B-Natriuretic Peptide Total Protein Albumin TSH Urine Color Urine Appearance Urine pH Ur Specific [place] Urine Protein Urine Glucose (UA) Urine Ketones Urine Blood Urine Nitrite Ur Leukocyte Esterase Urine RBC Urine WBC Ur Squamous Epith Cells Urine Bacteria Hyaline Casts Urine Opiates Screen Urine Fentanyl Screen Ur Barbiturates Screen Ur Phencyclidine Scrn Ur Amphetamines Screen U Benzodiazepines Scrn Urine Cocaine Screen U Marijuana (THC) Screen COVID-19 (BRAVO) COVID-19 [employer] Com 09/17/22 11:10 MCV MCH MCHC RDW Plt Count MPV Immature Gran % (Auto) Neut % (Auto) Lymph % (Auto) Garrard % (Auto) Eos % (Auto) Baso % (Auto) Lymph # (Auto) Garrard # (Auto) Eos # (Auto) Baso # (Auto) Abs Immat Gran (auto) Absolute Neuts (auto) Absolute Nucleated RBC Nucleated RBC % (auto) PT INR D-Dimer High Sensitivty VBG pH VBG pCO2 VBG pO2 VBG HCO3 VBG O2 Saturation VBG Base Excess Anion Gap Estim Creat Clear Calc Estimated GFR POC Glucose 210 H Random Glucose Lactic Acid Lactic Acid F/U @ 2Hr Lactic Acid F/U @ 4Hr Calcium Magnesium Total Bilirubin Direct Bilirubin AST ALT Alkaline Phosphatase Ammonia Troponin I High Sens B-Natriuretic Peptide Total Protein Albumin TSH Urine Color Urine Appearance Urine pH Ur Specific [place] Urine Protein Urine Glucose (UA) Urine Ketones Urine Blood Urine Nitrite Ur Leukocyte Esterase Urine RBC Urine WBC Ur Squamous Epith Cells Urine Bacteria Hyaline Casts Urine Opiates Screen Urine Fentanyl Screen Ur Barbiturates Screen Ur Phencyclidine Scrn Ur Amphetamines Screen U Benzodiazepines Scrn Urine Cocaine Screen U Marijuana (THC) Screen COVID-19 (BRAVO) COVID-19 Clin Com Assessment and Plan (1) Acute CVA (cerebrovascular accident): Status: Acute Plan 71-year-old male with pertinent history of congestive heart failure with reduced ejection fraction, ysk-eauotlw-aagnbhpac diabetes mellitus, atrial fibrillation on Eliquis, mixed hyperlipidemia, essential hypertension who was brought by EMS after he was found for decreased responsiveness. #.? Acute CVA CT with left frontal lobe infarct, MRI brain showed acute embolic infarcts within the left cerebellum, the right peritrigonal white matter and the left middle frontal gyrus with no mass effect and no hemorrhagic transformation.? noncompliance with anticoagulations has not filled medications since last February will obtain PT, speech OT, speech therapy consult follow echocardiogram likely patient not using Xarelto at home check lipid profile, follow neuro recommendation family requesting for rehab placement. #.? Alcohol use disorder with concerns for withdrawal: patient somnolent unable to take by mouth phenobarb, thiamine or folic acid , alcohol level less than 10, Monitor CIWA. Consulted CARE team, give IV thiamine. #.? Acute hypoxemic respiratory failure with concerns for aspiration:? on iv Unasyn, chest x-ray no acute process,? Monitor oxygen saturation and wean as tolerated. #.? Type 2 bli-abqderj-togeahhyd diabetes mellitus with hyperglycemia: continue Accu-Cheks with sliding scale insulin every 6 hours, NPO due to somnolence #.? Atrial fibrillation with RVR:? status post IV diltiazem later discontinued since patient pulled IV site, stable blood pressure and pulse will place on IV Lopressor as needed, on Lovenox subQ therapeutic since not awake enough to take by mouth medications #.? Congestive heart failure with reduced ejection fraction: No clinical concern for exacerbation although BNP is elevated, echo ordered follow report #.? Mixed hyperlipidemia: On statin resume when able to tolerate by mouth. #.? Essential hypertension: blood pressure is stable, added IV Lopressor as needed. #.? Bilateral lower extremity with venous stasis changes: Consulted Wound Care DVT prophylaxis:on Lovenox Full code need continued inpatient hospitalization for acute CVA requiring further workup and evaluation. Time Spent With Patient Time: Total time managing care of this patient today ____ minutes. Quality Stroke Does the patient have a stroke diagnosis?: No VTE Prior VTE?: No VTE Risk Level:: Medical - moderate - high VTE Device Contraindication: Treatment Not Indicated VTE Drug Contraindication: N/A - Med Ordered
--- NOTE | 2022-09-17 16:11 | PHA.MEDREC ---
med rec complete, based on medbox list from February. Confirmed with pharmacy patient has not picked up meds since February and prescriptions were not transferred, possible patient is non compliant Pharmacy Consult ? Medication Reconciliation Pharmacy has completed the medication reconciliation.
[2022-09-17 16:22] LABS: Glucose, Whole Blood 229 mg/dL (60-115)
[2022-09-17 20:17] LABS: Glucose, Whole Blood 181 mg/dL (60-115)
[2022-09-18] VITALS (9 sets, daily range): BP systolic 121–165; BP diastolic 59–95; PULSE 57–114; RESP 10–22; TEMP 36.1–37; O2SAT 92–100
--- NOTE | 2022-09-18 | ECG_ITS ---
Test Reason : doctors order Blood Pressure : / mmHG Vent. Rate : 125 BPM Atrial Rate : 000 BPM P-R Int : 000 ms QRS Dur : 186 ms QT Int : 372 ms P-R-T Axes : 000 -21 161 degrees QTc Int : 536 ms Atrial fibrillation with rapid ventricular response Left bundle branch block Abnormal ECG When compared with ECG of 18-SEP-2022 16:31, No significant changes seen Referred By: Govind Mcintyre Electronically Signed By:ISAEL JOYCE MD
--- NOTE | 2022-09-18 | ECG_ITS ---
Test Reason : doctors order Blood Pressure : / mmHG Vent. Rate : 126 BPM Atrial Rate : 040 BPM P-R Int : 104 ms QRS Dur : 184 ms QT Int : 440 ms P-R-T Axes : 000 -02 154 degrees QTc Int : 637 ms Atrial fibrillation with rapid ventricular response Left bundle branch block Abnormal ECG When compared with ECG of 16-SEP-2022 15:54, QRS axis Shifted right Referred By: Luci Abdi Electronically Signed By:ISAEL JOYCE MD
[2022-09-18] MEDS: 0.9 % Sodium Chloride Flush 3 ML SYRINGE IVFLUSH ×3 (00:10→17:27)
[2022-09-18] MEDS: Enoxaparin Sodium 80 MG/0.8 ML SYRINGE SUBCUT ×2 (02:28→16:46)
[2022-09-18] MEDS: Ampicillin Sodium/Sulbactam Na 3 GM in 0.9 % Sodium Chloride 100 ML IV ×4 (02:33→22:00)
[2022-09-18] MEDS: Insulin Lispro 100 UNIT/ML 3 ML VIAL SUBCUT ×2 (02:45→21:09)
[2022-09-18 02:48] LABS: Glucose, Whole Blood 184 mg/dL (60-115)
--- NOTE | 2022-09-18 06:29 | PC.NURSE ---
CARE ASSUMED 23:15..AWAKE...RESTLESS/AGITATED...REPEATEDLY PULLING OFF MONITOR AND O2...ATRIAL FIB LBBB HR 90'S-110'S...SAO2 80% ON ROOM AIR,,,SAO2 91-92% WITH O2 2-3 L/M..UNABLE TO REDIRECT...HOSPITALIST UPDATED...BILATERAL WRIST RESTRAINTS APPLIED TO MAINTAIN O2/MONITORING...ATTEMPTING TO AVOID SEDATION D/T RECENT EMBOLIC STROKE AND DIFFICULTY ASSESSING NEURO STATUS IF SEDATED
[2022-09-18 07:23] LABS: Hematocrit 46.6 % (42.0-52.0); Hemoglobin 14.1 g/dl (14.0-18.0); Mean Corpuscular HGB Conc 30.3 g/dl (31.0-36.0); Mean Corpuscular Hemoglobin 26.5 pg (27.0-33.0); Mean Corpuscular Volume 87.4 fL (80.0-98.0); Mean Platelet Volume 11.2 fL (9.4-12.4); NRBC Pct Auto 0.5 /100WBC (0.0-0.2); Platelet Count 339 X10*3/uL (160-400); Red Blood Count 5.33 X10*6/uL (4.60-5.80); Red Cell Distribution Width 19.8 % (11.0-16.0); White Blood Count 14.3 X10*3/uL (4.8-10.8)
[2022-09-18 07:34] LABS: Glucose, Whole Blood 212 mg/dL (60-115)
[2022-09-18 08:04] LABS: Cholesterol 199 mg/dL; HDL Cholesterol 19 mg/dL; LDL Cholesterol Calculated 154 mg/dl; Triglycerides 133 mg/dL
--- NOTE | 2022-09-18 09:23 | MHC.STROKE ---
09/16/22 1245 EMS PRE-NOTIFIED ETOH, ARRIVED AT [address] ?ETOH, SEEN BY PROVIDER AT 1348, CTH DONE + FOR STROKE OF UNKNOWN ONSET ? 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 INITIAL NIHSS ESTIMATED, KEPT NPO AND AT 1500 FAILED SWALLOW SCREEN INITIALLY, SUBSEQENTLY PASSED AND TOOK PO MEDICATIONS. SUPPOSED TO BE ON ELIQUIS FOR AFIB, NO TAKING ANY OF HIS MEDS, ALSO [id number] AND INITIAL BS [id number]. DISCUSSED CASE WITH DR. DECKER ON 09/17/22, MRI DONE ON 09/17/22 AND WAS + FOR EMBOLIC STROKES IN LEFT CEREBELLUM AND RIGHT FRONTAL LOBE. HE HAS BEEN STARTED ON ANTICOAGULATION, ALL STROKE QUALITY MEASURES MET. I WILL CONTINUE TO FOLLOW.
[2022-09-18] MEDS: Metoprolol Tartrate 5 MG/5 ML VIAL 2.5 MG IVPUSH (09:30)
[2022-09-18] MEDS: PHENobarbitaL 15 MG TABLET 45 MG PO (09:30)
[2022-09-18] MEDS: Folic Acid 1 MG TABLET PO (09:31)
--- NOTE | 2022-09-18 09:33 | MHC.STROKE ---
Addendum entered by Jaylin Santos RN 09/18/22 10:02: DISCUSSED PATIENT WITH DR. EDCKER AND DARIEN RN, HE WILL REQUIRE A SPEECH EVALUATION BUT IS CURRENTLY LETHARGIC WITH INTERMITTENT PERIODS OF AGITATION. Original Note: 09/16/22 1245 EMS PRE-NOTIFIED ETOH, ARRIVED AT [address] ?ETOH, SEEN BY PROVIDER AT 1348, CTH DONE + FOR STROKE OF UNKNOWN ONSET ? 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 INITIAL NIHSS ESTIMATED, KEPT NPO AND AT 1500 FAILED SWALLOW SCREEN INITIALLY, SUBSEQENTLY PASSED AND TOOK PO MEDICATIONS. SUPPOSED TO BE ON ELIQUIS FOR AFIB, NO TAKING ANY OF HIS MEDS, ALSO [id number] AND INITIAL BS [phone]. DISCUSSED CASE WITH DR. DECKER ON 09/17/22, MRI DONE ON 09/17/22 AND WAS + FOR EMBOLIC STROKES, SEE MRI REPORT. HE HAS BEEN STARTED ON ANTICOAGULATION, ALL STROKE QUALITY MEASURES MET. I WILL CONTINUE TO FOLLOW.
[2022-09-18] MEDS: Thiamine HCL 100 MG in 0.9 % Sodium Chloride 100 ML 202 MG IV (10:23)
[2022-09-18] MEDS: Ammonium Lactate 12 % Cream 140 GM TUBE 1 APPL TOPICAL (10:25)
[2022-09-18 11:05] LABS: Glucose, Whole Blood 254 mg/dL (60-115)
--- NOTE | 2022-09-18 12:41 | PM.NEUROCN ---
History of Present Illness Data of Consult Service Date: 09/18/22 Primary Care Provider: Matthias Marx MD [facility] Reason for consult: Strokes . Alcoholism This is a 71-year-old male with history of alcohol abuse, congestive heart failure with reduced ejection fraction, whr-ylalfrf-eeivudaad diabetes mellitus, atrial fibrillation supposedly on Eliquis, mixed hyperlipidemia, essential hypertension who was brought by EMS after he was found for decreased responsiveness.?Pt. Unable to provide any info. Patient was last seen normally about 72 hours ago.? Friend noted about a gallon of alcohol near the patient.?Unknown last drink.?He was started on phenobarb protocol for ETOH withdrawal. ETOH level was zero. BUN elevated. MRI shows 3 embolic acute infarcts : small left cerebellar and two larger left frontal and right parietal peritrigonal infarcts with no mass effects and no hemorrhagic change Review of Systems Review of Systems: Yes Unobtainable due to mental condition and Unobtainable due to mental status PMFSH Past Medical History Medical History Alcohol use disorder, severe, dependence Atrial fibrillation with rapid ventricular response Atrial fibrillation with slow ventricular response Cardiomyopathy CHF (congestive heart failure) Chronic atrial fibrillation Chronic systolic CHF (congestive heart failure) Depressive disorder Diabetes HTN (hypertension) LBBB (left bundle branch block) Family History Family History Mother HTN (hypertension) Father CAD (coronary artery disease) HTN (hypertension) Social History Social History Household Members: None Housing: Apartment Do you presently have visiting nurse or other home services: No Alcohol intake: current Alcohol intake frequency: former alcohol drinker Alcohol type: hard liquor Patient Tobacco Use Status: Former Tobacco user Tobacco use type: Cigarette Advance Directives Date on File: 06/27/21 service: No Current occupational status: retired Meds Allergies Allergy/AdvReac Type Severity Reaction Status Date / Time No Known Allergies Allergy Verified 09/22/21 12:18 Active Medications: Current Medications Acetaminophen (Acetaminophen 325 Mg Tablet) 650 mg PO Q6H PRN PRN Reason: Pain, Mild (Pain Scale 1-3) Dextrose (Dextrose 50 % 25 Gm/50 Ml Syringe) 25 gm IVPUSH Q15M PRN; Protocol PRN Reason: per Hypoglycemia Standing Ord. Enoxaparin Sodium (Enoxaparin Sodium 80 Mg/0.8 Ml Syringe) 80 mg 1 mg/kg (80 mg) SUBCUT Q12H [facility] Last Admin: 09/18/22 02:28 Dose: 80 mg Folic Acid (Folic Acid 1 Mg Tablet) 1 mg PO DAILY [facility] Last Admin: 09/18/22 09:31 Dose: 1 mg Glucose (Glucose Gel 15 Gm Gel..Gram.) 15 gm PO Q15M PRN; Protocol PRN Reason: per Hypoglycemia Standing Ord. Thiamine HCl 100 mg/ Sodium (Chloride) 101 mls @ 202 mls/hr IV DAILY [facility] Last Infusion: 09/18/22 11:10 Dose: Infused Ampicillin Sodium/Sulbactam (Sodium 3 gm/ Sodium Chloride) 100 mls @ 200 mls/hr IV Q6H [facility] Last Infusion: 09/18/22 10:28 Dose: 0 mls/hr Diltiazem HCl 125 mg/ Sodium (Chloride) 125 mls @ 0 mls/hr IVCONT .Q0M [facility]; Protocol Last Titration: 09/17/22 13:06 Dose: Infused Insulin Human Lispro (Insulin Lispro 100 Unit/Ml 3 Ml Vial) 0 unit SUBCUT Q6H [facility]; Protocol Last Admin: 09/18/22 08:43 Dose: Not Given Lactic Acid (Ammonium Lactate 12 % Cream 140 Gm Tube) 1 appl TOPICAL DAILY [facility]; Protocol Last Admin: 09/18/22 10:25 Dose: 1 appl Melatonin (Melatonin 3 Mg Tablet) 6 mg PO BEDTIME PRN PRN Reason: Insomnia Metoprolol Tartrate (Metoprolol Tartrate 5 Mg/5 Ml Vial) 2.5 mg IVPUSH Q6H PRN PRN Reason: tachycardia heart reate > 110 Last Admin: 09/18/22 09:30 Dose: 2.5 mg Ondansetron HCl (Ondansetron Hcl 4 Mg/2 Ml Vial) 4 mg IVPUSH Q8H PRN PRN Reason: Nausea and Vomiting Pharmacy Consult (Consult Rx Perform Med Rec) 1 each MISCELLANE ONCE PRN PRN Reason: Consult order Pharmacy Consult (Consult Rx Etoh Phenob Im/Po) 1 each MISCELLANE ONCE PRN; Protocol PRN Reason: Consult order Phenobarbital (Phenobarbital 15 Mg Tablet) 45 mg PO BID [facility] Stop: 09/18/22 21:01 Last Admin: 09/18/22 09:30 Dose: 45 mg Phenobarbital (Phenobarbital 30 Mg Tablet) 30 mg PO BID [facility] Stop: 09/20/22 21:01 Phenobarbital (Phenobarbital 15 Mg Tablet) 15 mg PO DAILY [facility] Stop: 09/22/22 09:01 Sodium Chloride (0.9 % Sodium Chloride Flush 3 Ml Syringe) 3 ml IVFLUSH QSHIFT [facility] Last Admin: 09/18/22 09:32 Dose: 3 ml Home Medications Medication Instructions Recorded Confirmed Last Taken Type amlodipine 10 mg tablet 1 tab PO DAILY 09/17/22 09/17/22 Unknown History aspirin 81 mg tablet,delayed 81 mg PO BEDTIME 09/17/22 09/17/22 Unknown History release folic acid 1 mg tablet 1 mg PO DAILY 09/17/22 09/17/22 Unknown History multivitamin 1 tab PO BEDTIME 09/17/22 09/17/22 Unknown History thiamine HCl (vitamin B1) 100 mg 100 mg PO DAILY 09/17/22 09/17/22 Unknown History tablet Physical Exam Vital Signs: Vital Signs: Last Vital Signs Temp 97.0 F 09/18/22 10:50 Pulse 108 H 09/18/22 10:50 Resp 20 09/18/22 10:50 BP 121/87 09/18/22 11:07 Pulse Ox 100 09/18/22 10:50 O2 Del Method 09/18/22 10:50 O2 Flow Rate 4.5 09/18/22 10:50 BMI result Body Mass Index 36.5 Skin: Other: Patient has bilateral lower legs very dry with crusty thickened skin. There is no true open wound that is noted at this point bilateral legs are not edematous. Palpable pulses are not noted on the feet but there are no toe injuries wounds or cool sensation to suggest compromise in the arterial flow. The thickened scaly skin this significant bilaterally. The patient may have some issues with venous hypertension but I am not convinced that this is what is causing his issue with the thickened skin. This seems to be a separate issue. Neuro: Other: The and the patient is unresponsive and cannot be aroused with the deep painful stimulation other than restless movements. He picks at his bedclothes when awake and does not follow any commands and does not verbalize and resists examination. He seems to be moving all 4 extremities. He is in terriblee personal hygiene and in his entire body especially his legs and feet. Results Labs 09/18/22 06:42 09/17/22 04:19 Labs: Short CBC 09/18/22 Range/Units 06:42 WBC 14.3 H (4.8-10.8) X10*3/uL Hgb 14.1 (14.0-18.0) g/dl Hct 46.6 D (42.0-52.0) % Plt Count 339 (160-400) X10*3/uL Microbiology Microbiology Results: Microbiology 09/16/22 14:56 Blood - Venous Blood Culture - Preliminary No growth after 24 hours. 09/16/22 14:56 Blood - Venous Blood Culture - Preliminary No growth after 24 hours. Assessment and Plan (1) Acute CVA (cerebrovascular accident): Status: Acute 3 embolic strokes probably related to atrial fibrillation. Patient is obviously not taking his Elavil worse because of his history of alcoholism and in the state of his personal hygiene. Plan Would restart Eliquis 5 mg twice a dayWhen he is able to take by mouth. PT OT evaluation. Continue phenobarbital protocol. Correction of dehydration and hypocalcemia. Counseling for alcohol abuse. He had a kink use going to not be compliant with his medications. Control of high blood pressure and sugar. Swallowing evaluation. Time Spent With Patient Time: Total time managing care of this patient today ____ minutes. Procedures Date of Service Date of Service: 09/18/22
--- NOTE | 2022-09-18 12:47 | MHC.SLORD ---
Speech Language Pathology Order Status: CLIENT CARE SPECIALIST attempted to see pt for bedside swallow eval. Pt sleeping, not waking to sternal rub and verbal stimuli. COUNTERSINKER present and reported pt did not have breakfast or lunch, not safe to feed d/t lethargic state. Pt is not appropriate to trial PO at this time.
--- NOTE | 2022-09-18 13:59 | MHC.CM.PN ---
attempted to meet with pt unable to wake pt from emr indiucated that pts pcp is eva name tried to call dgter x2 no answer elena garcia [phone] also tried son who is hcp [phone] cell phone was accepting any calls from his history pt was active with [facility] and has a stone polisher hand called eliza at [facility] who had no additional imfo
--- NOTE | 2022-09-18 15:41 | HO.PM.IMPN ---
Subjective Subjective Date of Service: 09/19/22 Interval History: patient noted to be somnolent this morning arousable to sternal rub, falls back to sleep patient received phenobarb last night and this morning, tele monitor showed atrial fibrillation with RVR Review of Systems Review of Systems: Yes Unobtainable due to mental status Physical Exam Vital Signs: Vital Signs: Last Vital Signs Temp 97.0 F 09/18/22 10:50 Pulse 108 H 09/18/22 10:50 Resp 20 09/18/22 10:50 BP 121/87 09/18/22 11:07 Pulse Ox 100 09/18/22 10:50 O2 Del Method 09/18/22 10:50 O2 Flow Rate 4.5 09/18/22 10:50 BMI result Body Mass Index 36.5 Const: Other: General? somnolent difficult to arouse only response to sternal rub.? Neck no JVD. CVS?irregular rate rhythm, Respiratory lungs clear to auscultation, no respiratory distress, no wheeze, no rhonchi. Gastrointestinal abdomen soft, nontender, bowel sounds audible Extremities no edema, dry scaly thick skin. Neuro? moving both upper extremities, unable to do neuro exam due to lethargy and somnolence, yesterday recognized [id number] at bedside, was aware he is in hospital ? Objective Data Active Medications Acetaminophen (Acetaminophen 325 Mg Tablet) 650 mg PO Q6H PRN PRN Reason: Pain, Mild (Pain Scale 1-3) Dextrose (Dextrose 50 % 25 Gm/50 Ml Syringe) 25 gm IVPUSH Q15M PRN; Protocol PRN Reason: per Hypoglycemia Standing Ord. Enoxaparin Sodium (Enoxaparin Sodium 80 Mg/0.8 Ml Syringe) 80 mg 1 mg/kg (80 mg) SUBCUT Q12H [facility] Last Admin: 09/18/22 02:28 Dose: 80 mg Documented By: ZENAIDA Folic Acid (Folic Acid 1 Mg Tablet) 1 mg PO DAILY [facility] Last Admin: 09/18/22 09:31 Dose: 1 mg Documented By: ADELINA Glucose (Glucose Gel 15 Gm Gel..Gram.) 15 gm PO Q15M PRN; Protocol PRN Reason: per Hypoglycemia Standing Ord. Thiamine HCl 100 mg/ Sodium (Chloride) 101 mls @ 202 mls/hr IV DAILY [facility] Last Infusion: 09/18/22 11:10 Dose: 0 mls/hr Documented By: ADELINA Ampicillin Sodium/Sulbactam (Sodium 3 gm/ Sodium Chloride) 100 mls @ 200 mls/hr IV Q6H [facility] Last Infusion: 09/18/22 10:28 Dose: 0 mls/hr Documented By: ADELINA Diltiazem HCl 125 mg/ Sodium (Chloride) 125 mls @ 0 mls/hr IVCONT .Q0M [facility]; Protocol Last Titration: 09/17/22 13:06 Dose: 0 mg/hr, 0 mls/hr Documented By: SHARMINENOBEATRIZ Insulin Human Lispro (Insulin Lispro 100 Unit/Ml 3 Ml Vial) 0 unit SUBCUT Q6H [facility]; Protocol Last Admin: 09/18/22 08:43 Dose: Not Given Documented By: ADELINA Non-Admin Reason: Physician Held Med Comments: per dr Abdi Lactic Acid (Ammonium Lactate 12 % Cream 140 Gm Tube) 1 appl TOPICAL DAILY [facility]; Protocol Last Admin: 09/18/22 10:25 Dose: 1 appl Documented By: ADELINA Melatonin (Melatonin 3 Mg Tablet) 6 mg PO BEDTIME PRN PRN Reason: Insomnia Metoprolol Tartrate (Metoprolol Tartrate 5 Mg/5 Ml Vial) 2.5 mg IVPUSH Q6H PRN PRN Reason: tachycardia heart reate > 110 Last Admin: 09/18/22 09:30 Dose: 2.5 mg Documented By: ADELINA Ondansetron HCl (Ondansetron Hcl 4 Mg/2 Ml Vial) 4 mg IVPUSH Q8H PRN PRN Reason: Nausea and Vomiting Pharmacy Consult (Consult Rx Perform Med Rec) 1 each MISCELLANE ONCE PRN PRN Reason: Consult order Pharmacy Consult (Consult Rx Etoh Phenob Im/Po) 1 each MISCELLANE ONCE PRN; Protocol PRN Reason: Consult order Phenobarbital (Phenobarbital 15 Mg Tablet) 45 mg PO BID [facility] Stop: 09/18/22 21:01 Last Admin: 09/18/22 09:30 Dose: 45 mg Documented By: ADELINA Phenobarbital (Phenobarbital 30 Mg Tablet) 30 mg PO BID [facility] Stop: 09/20/22 21:01 Phenobarbital (Phenobarbital 15 Mg Tablet) 15 mg PO DAILY [facility] Stop: 09/22/22 09:01 Sodium Chloride (0.9 % Sodium Chloride Flush 3 Ml Syringe) 3 ml IVFLUSH QSHIFT [facility] Last Admin: 09/18/22 09:32 Dose: 3 ml Documented By: ADELINA Labs 09/18/22 06:42 09/17/22 04:19 Labs: Laboratory Results - last 24 hr 09/17/22 09/17/22 09/18/22 16:11 20:12 02:44 MCV MCH MCHC RDW Plt Count MPV Absolute Nucleated RBC Nucleated RBC % (auto) POC Glucose 229 H 181 H 184 H Triglycerides Cholesterol LDL Cholesterol, Calc HDL Cholesterol 09/18/22 09/18/22 09/18/22 06:42 06:42 07:19 MCV 87.4 MCH 26.5 L MCHC 30.3 L RDW 19.8 H Plt Count 339 MPV 11.2 Absolute Nucleated RBC 0.070 H Nucleated RBC % (auto) 0.5 H POC Glucose 212 H Triglycerides 133 Cholesterol 199 LDL Cholesterol, Calc 154 HDL Cholesterol 19 09/18/22 10:52 MCV MCH MCHC RDW Plt Count MPV Absolute Nucleated RBC Nucleated RBC % (auto) POC Glucose 254 H Triglycerides Cholesterol LDL Cholesterol, Calc HDL Cholesterol Microbiology Microbiology Results: Microbiology 09/16/22 14:56 Blood Culture - Preliminary Blood - Venous No growth after 24 hours. 09/16/22 14:56 Blood Culture - Preliminary Blood - Venous No growth after 24 hours. Assessment and Plan (1) Acute CVA (cerebrovascular accident): Status: Acute Plan 71-year-old male with pertinent history of congestive heart failure with reduced ejection fraction, dfw-ciobdqy-suanodoml diabetes mellitus, atrial fibrillation on Eliquis, mixed hyperlipidemia, essential hypertension who was brought by EMS after he was found for decreased responsiveness. # acute toxic metabolic encephalopathy likely due to acute CVA alcohol withdrawal, continue supportive care, prn IV fluids #.? Acute CVA CT with left frontal lobe infarct, MRI brain showed acute embolic infarcts within the left cerebellum, the right peritrigonal white matter and the left middle frontal gyrus with no mass effect and no hemorrhagic transformation.? noncompliance with anticoagulations has not filled medications since last February PT, speech and OT, unable to assess due to somnolence LDL 154, HDL 19, total cholesterol [address] on Lipitor once patient able to take by mouth echocardiogram showed EF 20-25%, indeterminate diastolic function, moderately elevated right ventricular systolic pressures no gross pericardial effusion, severely dilated left atrium seen by Neurology will follow recommendation family requesting for rehab placement. #? Atrial fibrillation with RVR:? status post IV diltiazem later discontinued since patient pulled IV site, today noted to have atrial fibrillation with RVR, stable blood pressure will place on IV Lopressor scheduled and digoxin load continue Lovenox subQ #.? Alcohol use disorder with concerns for withdrawal: received phenobarb last evening noted to be somnolent this morning will discontinue further phenobarb continue IV thiamine , close clinical follow-up #.? Acute hypoxemic respiratory failure with concerns for aspiration:? on iv Unasyn, chest x-ray no acute process,? Monitor oxygen saturation and wean as tolerated. #.? Type 2 nrj-piyjyjm-pluumgsej diabetes mellitus with hyperglycemia: continue Accu-Cheks with sliding scale insulin every 6 hours, NPO due to somnolence #.? Congestive heart failure with reduced ejection fraction: No clinical concern for exacerbation although BNP is elevated, echo ordered follow report #.? Mixed hyperlipidemia: On statin resume when able to tolerate by mouth. #.? Essential hypertension: blood pressure is stable, will change IV Lopressor to 2.5 mg q.6 hours scheduled. #.? Bilateral lower extremity with take scaly skin apply Lac-Hydrin cream. DVT prophylaxis:on Lovenox Full code tried calling patient's son Abimael Georges [phone] no one answered, called patient daughter Veena Georges [phone] no response, spoke with patient's ex- Sarah Escobar [phone] she will send her daughter to discuss advance care planning. patient daughter Veena Georges showed up discussed patient's prognosis with poor EF, multiple acute CVA , discussed care of plan she wishes to discuss it with other family members and get back to me. need continued inpatient hospitalization for acute CVA requiring further workup and evaluation. Time Spent With Patient Time: Total time managing care of this patient today ____ minutes. Quality Stroke Does the patient have a stroke diagnosis?: No VTE Prior VTE?: No VTE Risk Level:: Medical - moderate - high VTE Device Contraindication: Treatment Not Indicated VTE Drug Contraindication: N/A - Med Ordered
--- NOTE | 2022-09-18 16:19 | MHC.CM.PN ---
received call back from eliza/cca with further imformation pts son is in care home and that pts santiagotremaine osorio radha is coming to visit pt kelly her phone is [phone]
[2022-09-18 16:53] LABS: Glucose, Whole Blood 260 mg/dL (60-115)
[2022-09-18] MEDS: Metoprolol Tartrate 2.5 MG in 0.9 % Sodium Chloride 50 ML 210 MG IV ×2 (17:24→23:54)
--- NOTE | 2022-09-18 17:49 | MHC.SLORD ---
Speech Language Pathology Order Status: Attempted 2x to see pt this afternoon/evening. Pt somnolent, not appropriate for bedside PO trials at this time.
[2022-09-18] MEDS: Digoxin 0.5 MG/2 ML AMPUL 0.25 MG IVPUSH (18:46)
[2022-09-18 20:32] LABS: Glucose, Whole Blood 249 mg/dL (60-115)
[2022-09-18 22:43] LABS: Glucose, Whole Blood 253 mg/dL (60-115)
--- NOTE | 2022-09-18 22:43 | PM.EVENT ---
Event Note Date of Service: 09/18/22 Event Note: Rapid response was called as patient was with decreased responsiveness. Upon examination, vitals were normal. Patient not responding to verbal stimulus but withdrawing extremities to painful stimulus. Will obtain CT head. Also obtaining ammonia, TSH, troponin and EKG. Other differential to consider would be nonconvulsive status. Time Spent With Patient Time: Total time managing care of this patient today ____ minutes.
--- NOTE | 2022-09-18 23:15 | PC.NURSE ---
unresponsive , doesn't' respond to sternal rub, LUMBER BEARER called ,CT scan of the head ordered and done , BP 164/95, hr 90 02 sat 96% on 4 l o2 via NC. case monitor afib with BBB, EKG ordered , blood work for Ammonia ,troponin,
[2022-09-18 23:48] LABS: Ammonia 40 umol/L (13-55)
[2022-09-19 00:03] LABS: Troponin-I High Sensitivity 138.2 ng/L (<3.5-35.0)
[2022-09-19 00:15] LABS: Thyroid Stimulating Hormone 1.34 uIU/mL (0.32-4.0)
[2022-09-19] MEDS: 0.9 % Sodium Chloride Flush 3 ML SYRINGE IVFLUSH (00:49)
[2022-09-19] MEDS: Digoxin 0.5 MG/2 ML AMPUL 0.25 MG IVPUSH ×2 (00:50→06:43)
[2022-09-19] MEDS: Enoxaparin Sodium 80 MG/0.8 ML SYRINGE SUBCUT ×2 (00:52→14:15)
[2022-09-19 01:38] LABS: Glucose, Whole Blood 229 mg/dL (60-115)
[2022-09-19] MEDS: Insulin Lispro 100 UNIT/ML 3 ML VIAL SUBCUT ×2 (02:24→08:52)
[2022-09-19 02:31] VITALS: BP 153/91; PULSE 122; RESP 15; TEMP 36.3; O2SAT 100
[2022-09-19] MEDS: Ampicillin Sodium/Sulbactam Na 3 GM in 0.9 % Sodium Chloride 100 ML IV (02:34)
[2022-09-19 03:50] LABS: Glucose, Whole Blood 203 mg/dL (60-115)
[2022-09-19] MEDS: Metoprolol Tartrate 2.5 MG in 0.9 % Sodium Chloride 50 ML 210 MG IV (05:48)
[2022-09-19 07:32] VITALS: BP 178/92; PULSE 77; RESP 20; TEMP 36.5; O2SAT 98
[2022-09-19 07:51] LABS: Glucose, Whole Blood 160 mg/dL (60-115)
[2022-09-19] MEDS: Ammonium Lactate 12 % Cream 140 GM TUBE 1 APPL TOPICAL (08:55)
[2022-09-19] MEDS: Folic Acid 1 MG TABLET PO (10:37)
[2022-09-19 11:02] VITALS: BP 175/92; PULSE 80; RESP 20; TEMP 36.6; O2SAT 95
[2022-09-19 11:30] LABS: Glucose, Whole Blood 155 mg/dL (60-115)
[2022-09-19 15:28] VITALS: BP 152/84; PULSE 107; RESP 15; TEMP 36.6; O2SAT 94
--- NOTE | 2022-09-19 15:53 | PC.NURSE ---
Pt removed his own IV overnight, police shift commander nurse made me aware that she had attempted but could not obtain access. multiple attempts were made to insert a peripheral IV, but no access was obtained. made aware. No new orders at this time
--- NOTE | 2022-09-19 17:10 | P.PNIM_ITS ---
Subjective Subjective Date of Service: 09/20/22 Interval History: patient awake not communicating, moving both upper extremities, but does not following cues, took pureed diet with no coughing, no acute events overnight tele monitor showed atrial fibrillation ventricular rate in 100s, oxygenation stable on 2 L Review of Systems Review of Systems: Yes Unobtainable due to mental status Physical Exam Vital Signs: Vital Signs: Last Vital Signs Temp 97.9 F 09/19/22 15:28 Pulse 107 H 09/19/22 15:28 Resp 15 09/19/22 15:28 BP 152/84 H 09/19/22 15:28 Pulse Ox 94 09/19/22 15:28 O2 Del Method 09/19/22 15:28 O2 Flow Rate 0.5 09/19/22 15:28 BMI result Body Mass Index 36.5 Const: Other: General? awake, alert not following cues, in no distress.? anicteric sclera Neck? no JVD. CVS?irregular rate rhythm, Respiratory lungs clear to auscultation, no respiratory distress, no wheeze, no rhonchi. Gastrointestinal abdomen soft, non tender, bowel sounds audible Extremities no edema, dry scaly thick skin both lower extremities. Neuro? non purposeful movement both upper extremities, unable to do neuro exam eyes open but not tracking Objective Data Active Medications Acetaminophen (Acetaminophen 325 Mg Tablet) 650 mg PO Q6H PRN PRN Reason: Pain, Mild (Pain Scale 1-3) Dextrose (Dextrose 50 % 25 Gm/50 Ml Syringe) 25 gm IVPUSH Q15M PRN; Protocol PRN Reason: per Hypoglycemia Standing Ord. Enoxaparin Sodium (Enoxaparin Sodium 80 Mg/0.8 Ml Syringe) 80 mg 1 mg/kg (80 mg) SUBCUT Q12H [facility] Last Admin: 09/19/22 14:15 Dose: 80 mg Documented By: BERTO Folic Acid (Folic Acid 1 Mg Tablet) 1 mg PO DAILY [facility] Last Admin: 09/19/22 10:37 Dose: 1 mg Documented By: BERTO Glucose (Glucose Gel 15 Gm Gel..Gram.) 15 gm PO Q15M PRN; Protocol PRN Reason: per Hypoglycemia Standing Ord. Thiamine HCl 100 mg/ Sodium (Chloride) 101 mls @ 202 mls/hr IV DAILY [facility] Last Admin: 09/19/22 14:10 Dose: Not Given Documented By: BERTO Non-Admin Reason: No Access Ampicillin Sodium/Sulbactam (Sodium 3 gm/ Sodium Chloride) 100 mls @ 200 mls/hr IV Q6H [facility] Last Admin: 09/19/22 17:02 Dose: Not Given Documented By: BERTO Non-Admin Reason: No Access Metoprolol Tartrate 2.5 mg/ (Sodium Chloride) 52.5 mls @ 210 mls/hr IV Q6H [facility] Last Admin: 09/19/22 17:02 Dose: Not Given Documented By: BERTO Non-Admin Reason: No Access Insulin Human Lispro (Insulin Lispro 100 Unit/Ml 3 Ml Vial) 0 unit SUBCUT Q6H [facility]; Protocol Last Admin: 09/19/22 14:46 Dose: Not Given Documented By: BERTO Non-Admin Reason: Physician Held Med Lactic Acid (Ammonium Lactate 12 % Cream 140 Gm Tube) 1 appl TOPICAL DAILY [facility]; Protocol Last Admin: 09/19/22 08:55 Dose: 1 appl Documented By: BERTO Melatonin (Melatonin 3 Mg Tablet) 6 mg PO BEDTIME PRN PRN Reason: Insomnia Ondansetron HCl (Ondansetron Hcl 4 Mg/2 Ml Vial) 4 mg IVPUSH Q8H PRN PRN Reason: Nausea and Vomiting Pharmacy Consult (Consult Rx Perform Med Rec) 1 each MISCELLANE ONCE PRN PRN Reason: Consult order Pharmacy Consult (Consult Rx Etoh Phenob Im/Po) 1 each MISCELLANE ONCE PRN; Protocol PRN Reason: Consult order Sodium Chloride (0.9 % Sodium Chloride Flush 3 Ml Syringe) 3 ml IVFLUSH QSHIFT [facility] Last Admin: 09/19/22 17:03 Dose: Not Given Documented By: BERTO Non-Admin Reason: No Access Labs 09/18/22 06:42 09/17/22 04:19 Labs: Laboratory Results - last 24 hr 09/18/22 09/18/22 09/18/22 20:17 22:39 23:29 POC Glucose 249 H 253 H Ammonia 40 Troponin I High Sens TSH 09/18/22 09/18/22 09/19/22 23:29 23:29 01:35 POC Glucose 229 H Ammonia Troponin I High Sens 138.2 H* TSH 1.34 09/19/22 09/19/22 09/19/22 03:46 07:34 11:00 POC Glucose 203 H 160 H 155 H Ammonia Troponin I High Sens TSH Microbiology Microbiology Results: Microbiology 09/16/22 14:56 Blood Culture - Preliminary Blood - Venous No growth after 48 hours. 09/16/22 14:56 Blood Culture - Preliminary Blood - Venous No growth after 48 hours. Assessment and Plan (1) Acute CVA (cerebrovascular accident): Status: Acute Plan 71-year-old male with pertinent history of congestive heart failure with reduced ejection fraction, fmt-mocmjia-xtkhvmbah diabetes mellitus, atrial fibrillation on Eliquis, mixed hyperlipidemia, essential hypertension who was brought by EMS after he was found for decreased responsiveness. # acute toxic metabolic encephalopathy likely due to acute CVA alcohol withdrawal, continue supportive care, prn IV fluids #.? Acute CVA awake this morning not following cues, noted non purposeful movement of upper extremities, tolerated pudding without coughing CT with left frontal lobe infarct, MRI brain showed acute embolic infarcts within the left cerebellum, the right peritrigonal white matter and the left middle frontal gyrus with no mass effect and no hemorrhagic transformation.? noncompliance with anticoagulations has not filled medications since last February PT, speech and OT, unable to assess due to altered mental status LDL 154, HDL 19, total cholesterol [address] on Lipitor once patient able to take by mouth echocardiogram showed EF 20-25%, indeterminate diastolic function, moderately elevated right ventricular systolic pressures no gross pericardial effusion, severely dilated left atrium seen by Neurology will follow recommendation will place on pureed diet with aspiration precautions. #? Atrial fibrillation with RVR:? status post IV diltiazem later discontinued since patient pulled IV site, better heart rate control, will place on by mouth metoprolol twice daily , status post IV digoxin load. #.? Alcohol use disorder with concerns for withdrawal: no withdrawal symptoms noted received 1 dose of phenobarb that was discontinued due to significant lethargy and somnolence #.? Acute hypoxemic respiratory failure with concerns for aspiration:?chest x- ray no acute process,? Monitor oxygen saturation and wean as tolerated, DC IV antibiotics no IV access. #.? Type 2 stn-vozecgi-yttwkeiwv diabetes mellitus with hyperglycemia: continue Accu-Cheks with sliding scale insulin every 6 hours #.? Congestive heart failure with reduced ejection fraction: No clinical concern for exacerbation although BNP is elevated, echo showed EF 20-25%, moderately reduced RV systolic function, severely dilated left atrium #.? Mixed hyperlipidemia: On statin resume when able to tolerate by mouth. #.? Essential hypertension: blood pressure is stable, add Lopressor 25 mg b.i.d. #.? Bilateral lower extremity with scaly skin apply Lac-Hydrin cream. DVT prophylaxis:on Lovenox Full code spoke with daughter Veena macario on patient clinical status and prognosis,she will discuss with family and will inform us about goal of care, her # [phone] need continued inpatient hospitalization for acute CVA ,atrial fib rvr, requiring further workup and evaluation. Time Spent With Patient Time: Total time managing care of this patient today ____ minutes. Quality Stroke Does the patient have a stroke diagnosis?: No VTE Prior VTE?: No VTE Risk Level:: Medical - moderate - high VTE Device Contraindication: Treatment Not Indicated VTE Drug Contraindication: N/A - Med Ordered
[2022-09-19 19:11] VITALS: BP 152/88; PULSE 97; RESP 15; TEMP 37.2; O2SAT 91
[2022-09-19] MEDS: Metoprolol Tartrate 25 MG TABLET PO (19:40)
[2022-09-19 20:52] LABS: Glucose, Whole Blood 173 mg/dL (60-115)
[2022-09-19] MEDS: OLANZapine 10 MG VIAL IM (22:02)
[2022-09-20] VITALS: BP 182/91; PULSE 100; RESP 20; TEMP 37; O2SAT 92
[2022-09-20] MEDS: Enoxaparin Sodium 80 MG/0.8 ML SYRINGE SUBCUT ×2 (01:41→14:39)
[2022-09-20 04:00] VITALS: BP 170/90; PULSE 107; RESP 20; TEMP 36.2; O2SAT 97
[2022-09-20 04:34] LABS: Glucose, Whole Blood 188 mg/dL (60-115)
[2022-09-20 07:14] VITALS: BP 170/90; PULSE 100; RESP 20; TEMP 36.4; O2SAT 96
[2022-09-20 07:45] LABS: Glucose, Whole Blood 223 mg/dL (60-115)
[2022-09-20] MEDS: Folic Acid 1 MG TABLET PO (08:10)
[2022-09-20] MEDS: Metoprolol Tartrate 50 MG TABLET PO (08:10)
[2022-09-20] MEDS: Ammonium Lactate 12 % Cream 140 GM TUBE 1 APPL TOPICAL (08:11)
[2022-09-20 11:32] LABS: Glucose, Whole Blood 200 mg/dL (60-115)
[2022-09-20 12:00] VITALS: BP 160/70; PULSE 85; RESP 20; TEMP 36.4; O2SAT 97
--- NOTE | 2022-09-20 14:37 | HO.PM.IMPN ---
Subjective Subjective Date of Service: 09/21/22 Interval History: patient noted to be somnolent open eyes to sternal rub, is stable ventricular rates in 100 , stable oxygenation and blood pressure,patient received Zyprexa 10 mg IM last night. Review of Systems Review of Systems: Yes Unobtainable due to mental status Physical Exam Vital Signs: Vital Signs: Last Vital Signs Temp 97.5 F 09/20/22 12:00 Pulse 85 09/20/22 12:00 Resp 20 09/20/22 12:00 BP 160/70 H 09/20/22 12:00 Pulse Ox 97 09/20/22 12:00 O2 Del Method 09/20/22 12:00 O2 Flow Rate 2 09/20/22 12:00 BMI result Body Mass Index 36.5 Const: Other: General?? somnolen t difficult to shira use open eyes with painful stimuli, no distress.? anic teric sclera Neck? no JVD. CVS?irreg ular rate rhythm, Respiratory lungs clear to auscultat ion, no respirator y distress, no whe leandro, no rhonchi. G astrointestinal ab domen soft, bowel sounds audible Ext remities no edema, dry scaly thick s kin both lower ext remities. Neuro?? non purposeful?mov ement both upper e xtremities, unable to do neuro exam Objective Data Active Medications Acetaminophen (Acetaminophen 325 Mg Tablet) 650 mg PO Q6H PRN PRN Reason: Pain, Mild (Pain Scale 1-3) Dextrose (Dextrose 50 % 25 Gm/50 Ml Syringe) 25 gm IVPUSH Q15M PRN; Protocol PRN Reason: per Hypoglycemia Standing Ord. Enoxaparin Sodium (Enoxaparin Sodium 80 Mg/0.8 Ml Syringe) 80 mg 1 mg/kg (80 mg) SUBCUT Q12H [facility] Last Admin: 09/20/22 01:41 Dose: 80 mg Documented By: HECTOR Folic Acid (Folic Acid 1 Mg Tablet) 1 mg PO DAILY [facility] Last Admin: 09/20/22 08:10 Dose: 1 mg Documented By: DONGTEKBaldo Glucose (Glucose Gel 15 Gm Gel..Gram.) 15 gm PO Q15M PRN; Protocol PRN Reason: per Hypoglycemia Standing Ord. Lactic Acid (Ammonium Lactate 12 % Cream 140 Gm Tube) 1 appl TOPICAL DAILY [facility]; Protocol Last Admin: 09/20/22 08:11 Dose: 1 appl Documented By: BERTO Melatonin (Melatonin 3 Mg Tablet) 6 mg PO BEDTIME PRN PRN Reason: Insomnia Metoprolol Tartrate (Metoprolol Tartrate 50 Mg Tablet) 50 mg PO BID [facility]; Protocol Last Admin: 09/20/22 08:10 Dose: 50 mg Documented By: BERTO Ondansetron HCl (Ondansetron Hcl 4 Mg/2 Ml Vial) 4 mg IVPUSH Q8H PRN PRN Reason: Nausea and Vomiting Pharmacy Consult (Consult Rx Perform Med Rec) 1 each MISCELLANE ONCE PRN PRN Reason: Consult order Pharmacy Consult (Consult Rx Etoh Phenob Im/Po) 1 each MISCELLANE ONCE PRN; Protocol PRN Reason: Consult order Sodium Chloride (0.9 % Sodium Chloride Flush 3 Ml Syringe) 3 ml IVFLUSH QSHIFT [facility] Last Admin: 09/20/22 08:10 Dose: Not Given Documented By: BERTO Non-Admin Reason: No Access Labs 09/18/22 06:42 09/17/22 04:19 Labs: Laboratory Results - last 24 hr 09/19/22 09/20/22 09/20/22 20:47 04:30 07:13 POC Glucose 173 H 188 H 223 H 09/20/22 11:21 POC Glucose 200 H Assessment and Plan (1) Acute CVA (cerebrovascular accident): Status: Acute Plan 71-year-old male with pertinent history of congestive heart failure with reduced ejection fraction, sow-yoeqrwy-qbcsxobcj diabetes mellitus, atrial fibrillation on Eliquis, mixed hyperlipidemia, essential hypertension who was brought by EMS after he was found for decreased responsiveness. # acute toxic metabolic encephalopathy likely due to acute CVA alcohol withdrawal, this morning patient is somnolent since likely due to Zyprexa 10 mg IM last night continue supportive care, no IV access will request IR to place midline. #.? Acute CVA non purposeful movement of upper extremities, continue supportive care,stable vitals CT with left frontal lobe infarct, MRI brain showed acute embolic infarcts within the left cerebellum, the right peritrigonal white matter and the left middle frontal gyrus with no mass effect and no hemorrhagic transformation.? noncompliance with anticoagulations has not filled medications since last February PT, speech and OT, unable to assess due to altered mental status LDL 154, HDL 19, total cholesterol [address] on Lipitor once patient able to take by mouth echocardiogram showed EF 20-25%, indeterminate diastolic function, moderately elevated right ventricular systolic pressures no gross pericardial effusion, severely dilated left atrium seen by Neurology will follow recommendation pureed diet as tolerated when more awake , meds in apple sauce, no iv acess multiple attempts made will place midline at am /follow labs #? Atrial fibrillation with RVR:? status post IV diltiazem later discontinued since patient pulled IV site, better heart rate control, on by mouth metoprolol twice daily , status post IV digoxin load. #.? Alcohol use disorder with concerns for withdrawal: no withdrawal symptoms noted received 1 dose of phenobarb that was discontinued due to significant lethargy and somnolence. #.? Acute hypoxemic respiratory failure with concerns for aspiration:?chest x-ray no acute process,? Monitor oxygen saturation and wean as tolerated, status post 3 days of IV antibiotics. #.? Type 2 kyl-nmlvjok-iabmlpavf diabetes mellitus with hyperglycemia: continue Accu-Cheks with sliding scale insulin every 6 hours #.? Congestive heart failure with reduced ejection fraction: No clinical concern for exacerbation although BNP is elevated, echo showed EF 20-25%, moderately reduced RV systolic function, severely dilated left atrium #.? Mixed hyperlipidemia: On statin resume when able to tolerate by mouth. #.? Essential hypertension: blood pressure is stable, add Lopressor 25 mg b.i.d. #.? Bilateral lower extremity with scaly skin apply Lac-Hydrin cream. DVT prophylaxis:on Lovenox Full code Called daughter Veena Georges # [phone] to update regarding patient's clinical condition left message on voicemail. need continued inpatient hospitalization for acute CVA ,atrial fib rvr, requiring further workup and evaluation. Time Spent With Patient Time: Total time managing care of this patient today ____ minutes. Quality Stroke Does the patient have a stroke diagnosis?: No VTE Prior VTE?: No VTE Risk Level:: Medical - moderate - high VTE Device Contraindication: Treatment Not Indicated VTE Drug Contraindication: N/A - Med Ordered
[2022-09-20 16:00] VITALS: BP 154/81; PULSE 119; RESP 22; TEMP 36.6; O2SAT 98
[2022-09-20 16:31] LABS: Glucose, Whole Blood 196 mg/dL (60-115)
[2022-09-20 19:12] VITALS: BP 146/76; PULSE 111; RESP 18; TEMP 36.6; O2SAT 97
[2022-09-20 20:55] LABS: Glucose, Whole Blood 218 mg/dL (60-115)
[2022-09-21] VITALS (32 sets, daily range): BP systolic 84–165; BP diastolic 45–102; PULSE 74–112; RESP 14–30; TEMP 34.7–38.4; O2SAT 91–100; BMI 36.5
--- NOTE | 2022-09-21 | ECG_ITS ---
Test Reason : trop abn Blood Pressure : / mmHG Vent. Rate : 073 BPM Atrial Rate : 000 BPM P-R Int : 000 ms QRS Dur : 152 ms QT Int : 452 ms P-R-T Axes : 000 006 199 degrees QTc Int : 497 ms Atrial fibrillation Left bundle branch block Abnormal ECG No previous ECGs available Referred By: Javier De Oliveira Electronically Signed By:JUAN DIEGO RICHMOND
[2022-09-21] MEDS: Enoxaparin Sodium 80 MG/0.8 ML SYRINGE SUBCUT ×2 (02:33→14:32)
[2022-09-21 03:06] LABS: ABG Base Excess 4.4 mmol/L; ABG HCO3 39 mmol/L (22-26); ABG pCO2 121 mmHg (32-45); ABG pH 7.11 (7.35-7.45); ABG pO2 93 mmHg (83-108)
--- NOTE | 2022-09-21 03:14 | PM.EVENT ---
Event Note Date of Service: 09/21/22 Event Note: Was called by the nurse as patient was not responsive. Upon my evaluation, patient not responding to painful stimulus. Obtain CT head which was without acute abnormality. Obtained ABG which revealed respiratory acidosis with pH 7.1 and pCO2 121. Talked to Dr. Meredith and will move him to ICU for higher level of care. Time Spent With Patient Time: Total time managing care of this patient today ____ minutes.
--- NOTE | 2022-09-21 03:42 | PC.NURSE ---
Received in report that patient was lethargic during day. Upon this RNs assessment patient unresponsive, unarousable to pain, flaccid extremities, pupils sluggish and equal bilateral at 2mm. Breathing equal and unlabored. Pt hypertensive and tachycardic, unable to safely give ordered Metoprolol. MD notified and RN asked for MD to come to bedside. IV access obtained. MD ordered STAT head CT- see report. Nursing curtain supervisor notified. MD at bedside. ABG ordered. ABG values critical with pH 7.11 and cO2 121. Patient transferred to ICU at 03:20 roughly. Notified curtain supervisor and gave report to ICU nurse.
[2022-09-21] MEDS: Etomidate 20 MG/10 ML VIAL IVPUSH (03:45)
[2022-09-21] MEDS: Rocuronium Bromide 50 MG/5 ML VIAL 30 MG IVPUSH (03:45)
--- NOTE | 2022-09-21 03:48 | P.PCNCC_ITS ---
Procedures Date of Service Date of Service: 09/21/22 Intubation Intubation Comments: ?Unable to obtain consent from patient or family, intubated? due to medical emergent necessity Patient was transferred to the ICU in significant acute respiratory failure with hypercapnic state and obtundation with GCS of 6 vital signs otherwise stable. Patient was preoxygenated,? ?Etomidate 20 mg and rocuronium 30 mg IV x1 were given for induction paralysis.? Using the GlideScope, the close was identified and using a 4.0 Blade, an ETT tube 7.5 was inserted via direct vision in a nontraumatic way.? Post intubation, breath sounds were equal and bilateral, CO2 test in show positive color change to yellow, SpO2 maintained.? The tube was secured at 25 cm at the upper lip.? Initial vent settings AC 30 / 450/5/80% Patient tolerated the procedure well and there were no complications.? Postop x- ray showed endotracheal tube approximately 5 cm above the gisel.
--- NOTE | 2022-09-21 03:48 | W.PM.CCCN ---
History of Present Illness Data of Consult Service Date: 09/21/22 Requesting physician: Cordell Mcintyre Primary Care Provider: Matthias Marx MD HPI Reason for consult: acute respiratory failure with hypercarbia SOURCE OF HISTORY: ?Patient's chart ? HPI: ?71-year-old male with underlying history of congestive heart failure with 20-25% ejection fraction with moderately reduced right ventricular systolic function, diabetes, atrial fibrillation previously on Eliquis, hyperlipidemia, hypertension patient had been seen in the emergency room prior to this current admission on 09/27/2022 having a gal of alcohol with him, otherwise was unable to give any history for he had altered mental status and in the emergency room they had started phenobarbital protocol, admitted to the hospital. ? During this hospitalization, the patient had been treated for his alcohol withdrawal with phenobarbital protocol, thiamine, folic acid, given his mental status, have brain MRI was done on the 2nd of this month showing acute embolic infarct it is within the left cerebellum and right peritrigonal white matter and left middle frontal gyrus area.? There was no hemorrhagic conversion despite the fact that the patient was on Lovenox as he had been NPO and they were not able to continue his Eliquis.? He also did have rapid atrial fibrillation for which she was given Cardizem drip and subsequently switched to p.o. metoprolol. ? On 09/18/2022 patient was seen by the neurology service given his embolic strokes related to atrial fibrillation.? At the time Dr Bay had suggested to restart the patient on Eliquis whenever the patient is able to take p.o. during today's Internal Medicine rounds, it is noted that the patient had been somnolent around 130 but opening his eyes to sternal rub.? Is known the patient has been receiving Zyprexa IM.? Per nursing report the patient did not get any better and rather got worse until around midnight a head CT was ordered and done by 01:30 which showed no hemorrhagic conversion and no changes on head CT in comparison to findings previously known on MRI, subsequently a an ABG was done and this showed pH of 7.11, pCO2 of 121, PO2 93, HC03 39.? Patient completely unresponsive, at this point Dr. Maxine Meredith of [facility] who recommended transfer to ICU.? Upon arrival of the patient, was eminent that he had significant hypercarbic respiratory failure with encephalopathy and a GCS of 6 therefore decision to intubate was made, I really do not think this patient with have tolerated BiPAP and would have been likely to vomit and aspirate. ? ROS:? Unable to obtain ? Past Medical History:? As above Depression Left bundle branch block ? Past Surgical History: none per records ? Family history:? Dad had hypertension coronary artery disease.? Mother had hypertension. ? Social History:? Is known the patient lives in an apartment, drinks alcohol frequently however there is no quantity described.? Ex-smoker with unknown pack-year history.? He is retired.? I have tried calling his daughter Thuy at [phone] as well as his own phone number but neither of them seem to be working. ?? CODE STATUS: FULL CODE ? Allergies: NKDA ? Home Medications: See Med Rec ? PHYSICAL EXAM: VS: ?160/80, 112 irregular, 12, 92% NC 3 L General:? Significantly obtunded GCS 6 not responding to any stimuli including pinching and sternal rub.? Breathing slowly with intermittent Kussmaul respirations. ? Skin:? Stasis dermatitis changes of the bilateral lower extremities HEENT:? Head is normocephalic, atraumatic, fixed 3 mm bilaterally.? Buccal mucosa is dry, no dentures. ?Neck is supple without lymphadenopathy. Cardiac:? Irregularly irregular without murmurs, rubs, gallops. Pulmonary:? Diminished lung sounds bilaterally with slight coarseness at the bases, no rhonchi, crackles or rales. ? Abdomen:? Protuberant, positive bowel sounds in all 4 quadrants.? Soft. Musculoskeletal:? Passive range of motion of upper and lower extremities showed no cogwheeling, no crepitus, Neurologic:? As above, otherwise unable to further assess. Vascular:? 2+ pulses upper and lower extremities distally. ? SIGNIFICANT LABORATORY DATA:? Throughout the hospital stay has been reviewed however no new labs since 09/17/2022 ? REVIEW OF IMAGES: TODAY REPEATED HEAD CT IMPRESSION: Redemonstrated evolving acute infarcts in the left frontal lobe and right peritrigonal white matter. No new acute findings identified. ? BRAIN MRI WITHOUT CONTRAST FROM 09/17/2022 IMPRESSION: Acute embolic infarcts within the left cerebellum, the right peritrigonal white matter, and the left middle frontal gyrus. There is no significant mass effect and there is no hemorrhagic transformation. ? EKG REVIEW: ?His last EKG on 09/18/2022 showed atrial fibrillation with RVR, left bundle branch block.? Rate 125 beats per minute.? No significant changes in comparison to prior EKG. ? ASSESSMENT : 1. Acute hypercarbic respiratory failure 2. Metabolic encephalopathy due to the above without evidence of hemorrhagic conversion of his recent infarct r/o hepatic contribution 3. 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 History of CHF with ejection fraction 20-25% without exacerbation 5. Rate controlled atrial fibrillation 6. History of alcohol abuse and recent withdrawal 7. Stasis dermatitis of bilateral lower extremities with scaly skin 8. Uncontrolled diabetes mellitus type 2 ? PLAN OF CARE: Patient was transferred to the ICU, it was clear that the patient was severely obtunded with GCS of 6 having intermittent Kussmaul respirations.? His ABG from the floor was reviewed and shows significant hypercarbia likely cause in the mental status changes and obtundation.? He needed to be emergently intubated please see separate note for details, intubation without any issues, right central line IJ placement. Will order a full set of laboratories including CBC, Chem 7, magnesium, phosphorus, lactic acid, troponin, ammonia. With place him on propofol for sedation and will add Levophed to support his blood pressure as this is coming down.? OG tube placement for administration of other medications such as metoprolol for rate control. Will ensure his renal function is adequate continue Lovenox as there is no evidence of hemorrhagic conversion of the embolic infarcts, otherwise we may switch him to heparin drip. Place him on insulin sliding scale and continue with wound care. Recheck VBG in a couple of hours. ? GI PROPHYLAXIS:? Protonix IV DVT PROPHYLAXIS:? As above on full-dose Lovenox ? Critical care time used for critical evaluation of this patient, diagnosis, treatment and coordination of care, review her records and documentation TOTAL CRITICAL CARE TIME?120 MIN . discussion and coordination with consultants, completely separate from any procedures performed. Patient's care was discussed in detail with Dr. Meredith.? He is aware of all the above as well as the plan of care for this patient. [facility] Past Medical History Medical History Alcohol use disorder, severe, dependence Atrial fibrillation with rapid ventricular response Atrial fibrillation with slow ventricular response Cardiomyopathy CHF (congestive heart failure) Chronic atrial fibrillation Chronic systolic CHF (congestive heart failure) Depressive disorder Diabetes HTN (hypertension) LBBB (left bundle branch block) Family History Family History Mother HTN (hypertension) Father CAD (coronary artery disease) HTN (hypertension) Social History Social History Household Members: None Housing: Apartment Do you presently have visiting nurse or other home services: No Alcohol intake: current Alcohol intake frequency: former alcohol drinker Alcohol type: hard liquor Patient Tobacco Use Status: Former Tobacco user Tobacco use type: Cigarette Advance Directives Date on File: 06/27/21 service: No Current occupational status: retired Meds Allergies Allergy/AdvReac Type Severity Reaction Status Date / Time No Known Allergies Allergy Verified 09/22/21 12:18 Active Medications: Current Medications Acetaminophen (Acetaminophen 325 Mg Tablet) 650 mg PO Q6H PRN PRN Reason: Pain, Mild (Pain Scale 1-3) Dextrose (Dextrose 50 % 25 Gm/50 Ml Syringe) 25 gm IVPUSH Q15M PRN; Protocol PRN Reason: per Hypoglycemia Standing Ord. Enoxaparin Sodium (Enoxaparin Sodium 80 Mg/0.8 Ml Syringe) 80 mg 1 mg/kg (80 mg) SUBCUT Q12H JESUS Last Admin: 09/21/22 02:33 Dose: 80 mg Etomidate (Etomidate 20 Mg/10 Ml Vial) 20 mg IVPUSH ONCE ONE Stop: 09/21/22 03:47 Folic Acid (Folic Acid 1 Mg Tablet) 1 mg PO DAILY JESUS Last Admin: 09/20/22 08:10 Dose: 1 mg Glucose (Glucose Gel 15 Gm Gel..Gram.) 15 gm PO Q15M PRN; Protocol PRN Reason: per Hypoglycemia Standing Ord. Propofol (Diprivan) 1,000 mg in 100 mls @ 0 mls/hr IVCONT .Q0M JESUS; Protocol Lactic Acid (Ammonium Lactate 12 % Cream 140 Gm Tube) 1 appl TOPICAL DAILY JESUS; Protocol Last Admin: 09/20/22 08:11 Dose: 1 appl Melatonin (Melatonin 3 Mg Tablet) 6 mg PO BEDTIME PRN PRN Reason: Insomnia Metoprolol Tartrate (Metoprolol Tartrate 50 Mg Tablet) 50 mg PO BID [facility]; Protocol Last Admin: 09/20/22 23:28 Dose: Not Given Ondansetron HCl (Ondansetron Hcl 4 Mg/2 Ml Vial) 4 mg IVPUSH Q8H PRN PRN Reason: Nausea and Vomiting Pharmacy Consult (Consult Rx Perform Med Rec) 1 each MISCELLANE ONCE PRN PRN Reason: Consult order Pharmacy Consult (Consult Rx Etoh Phenob Im/Po) 1 each MISCELLANE ONCE PRN; Protocol PRN Reason: Consult order Rocuronium Mcdougal (Rocuronium Mcdougal 50 Mg/5 Ml Vial) 30 mg IVPUSH ONCE ONE Stop: 09/21/22 03:46 Sodium Chloride (0.9 % Sodium Chloride Flush 3 Ml Syringe) 3 [facility] Last Admin: 09/21/22 02:20 Dose: Not Given Home Medications Medication Instructions Recorded Confirmed Last Taken Type amlodipine 10 mg tablet 1 tab PO DAILY 09/17/22 09/17/22 Unknown History aspirin 81 mg tablet,delayed 81 mg PO BEDTIME 09/17/22 09/17/22 Unknown History release folic acid 1 mg tablet 1 mg PO DAILY 09/17/22 09/17/22 Unknown History multivitamin 1 tab PO BEDTIME 09/17/22 09/17/22 Unknown History thiamine HCl (vitamin B1) 100 mg 100 mg PO DAILY 09/17/22 09/17/22 Unknown History tablet Physical Exam Vital Signs: Vital Signs: Last Vital Signs Temp 98.0 F 09/21/22 00:00 Pulse 112 H 09/21/22 00:00 Resp 22 H 09/21/22 00:00 BP 160/80 H 09/21/22 02:21 Pulse Ox 92 09/21/22 00:00 O2 Del Method 09/21/22 00:00 O2 Flow Rate 3 09/21/22 00:00 BMI result Body Mass Index 36.5 Results Labs 09/18/22 06:42 09/17/22 04:19 Microbiology Microbiology Results: Microbiology 09/16/22 14:56 Blood - Venous Blood Culture - Preliminary No growth after 48 hours. 09/16/22 14:56 Blood - Venous Blood Culture - Preliminary No growth after 48 hours. Assessment and Plan Time Spent With Patient Time: Total time managing care of this patient today ____ minutes.
--- NOTE | 2022-09-21 03:48 | W.PM.CCHP ---
Procedures Date of Service Date of Service: 09/21/22 Central Line Placement Right IJ: Central Line Comments: ?A quick time-out was made for clarification and proper patient identification, patient was positioned, landmarks were identified, US used to locate a? large compressible IJ.? The right neck was widely prepped and draped in a full sterile fashion.? Ultrasound was used to locate again the right IJ, the vein was cannulated on the 1st pass with an 18 gauge thin needle, dark nonpulsatile blood return was obtained.? The wire was threaded, a small incision was made at its base and dilator inserted.? A 16 cm triple-lumen central venous catheter was advanced into the vein up to the hub without problems, wired was removed. Ports had? good blood return and flushed x3.? The catheter was secured with 3 sutures at 3 sites, a Biopatch and dry sterile dressing were applied. Post procedure chest x-ray showed the line to be in good position without pneumothorax.? No bleeding or complications noted. Consent for Procedure: Emergent-no informed consent obtained
[2022-09-21] MEDS: propofoL 1,000 MG/100 ML VIAL 20.79 MG IVCONT (03:50)
[2022-09-21 04:35] LABS: Glucose, Whole Blood 207 mg/dL (60-115)
[2022-09-21 04:45] LABS: ABG Refer to POC result
[2022-09-21 04:54] LABS: MANUAL DIFF FLAG NO
[2022-09-21] MEDS: Norepinephrine Bitartrate/D5W 8 MG/250 ML PLAST..BAG 10.83 MG IV (04:55)
[2022-09-21 04:57] LABS: Basophils Absolute Auto 0.1 X10*3/uL (0.0-0.2); Basophils Percent Auto 0.5 % (0-2); Eosinophils Percent Auto 0.1 % (0-4); Hematocrit 42.1 % (42.0-52.0); Hemoglobin 12.3 g/dl (14.0-18.0); Imm Gran Abs Auto 0.45 X10*3/uL (0.00-0.03); Imm Gran Pct Auto 4.3 % (0.0-0.4); Lymphocytes Absolute Auto 0.6 X10*3/uL (1.2-4.9); Lymphocytes Percent Auto 5.4 % (20-40); Mean Corpuscular HGB Conc 29.2 g/dl (31.0-36.0); Mean Corpuscular Hemoglobin 26.4 pg (27.0-33.0); Mean Corpuscular Volume 90.3 fL (80.0-98.0); Mean Platelet Volume 10.6 fL (9.4-12.4); Monocytes Absolute Auto 0.7 X10*3/uL (0.1-1.2); Monocytes Percent Auto 6.3 % (2-11); NRBC Pct Auto 0.9 /100WBC (0.0-0.2); Neutrophils Absolute Auto 8.7 x10*3/uL (2.0-8.3); Neutrophils Percent Auto 83.4 % (45-73); Platelet Count 368 X10*3/uL (160-400); Red Blood Count 4.66 X10*6/uL (4.60-5.80); Red Cell Distribution Width 19.5 % (11.0-16.0); White Blood Count 10.4 X10*3/uL (4.8-10.8)
[2022-09-21 05:05] LABS: Ammonia 46 umol/L (13-55)
[2022-09-21 05:17] LABS: Lactic Acid 2.6 mmol/L (0.5-2.0)
[2022-09-21 05:22] LABS: Troponin-I High Sensitivity 644.8 ng/L (<3.5-35.0)
[2022-09-21 05:23] LABS: Alanine Aminotransferase 26 U/L (0-40); Albumin Level 2.4 g/dL (3.5-5.0); Alkaline Phosphatase 216 U/L (39-117); Anion Gap 14 (12-20); Aspartate Amino Transferase 31 U/L (5-37); Bilirubin Total 1.2 mg/dL (0.0-1.0); Blood Urea Nitrogen 48 mg/dL (9-16); Calcium 8.1 mg/dL (8.4-10.2); Carbon Dioxide 38 mmol/L (22-29); Chloride 107 mmol/L (96-108); Creatinine Clr Calc Pharmacy 62.9; Estimated Glomerular Filt Rate 53; Glucose Random 242 mg/dL (60-115); Magnesium 2.2 mg/dL (1.6-2.6); Phosphorus 5.8 mg/dL (2.7-4.5); Potassium 5.9 mmol/L (3.3-5.1); Sodium 153 mmol/L (135-145)
[2022-09-21 05:27] LABS: B Type Natriuretic Peptide 4030 pg/mL (<100)
[2022-09-21] MEDS: propofoL 1,000 MG/100 ML VIAL 34.65 MG IVCONT ×7 (05:55→22:17)
[2022-09-21] MEDS: 0.9 % Sodium Chloride 1,000 ML 100 ML IVCONT (06:05)
[2022-09-21] MEDS: Albumin Human 25 % 100 ML IV ×3 (06:08→07:43)
[2022-09-21] MEDS: Albuterol Sulfate (0.083%) 2.5 MG/3 ML VIAL.NEB 10 MG INHALE (06:15)
[2022-09-21] MEDS: Insulin Regular, Human 100 UNIT/ML 3 ML VIAL 10 UNIT IVPUSH (06:39)
[2022-09-21] MEDS: Dextrose 50 % 25 GM/50 ML SYRINGE IVPUSH (06:39)
[2022-09-21] MEDS: Pantoprazole Sodium 40 MG/10 ML VIAL IVPUSH (06:43)
[2022-09-21 06:53] LABS: Reflex Lactate? Lactic Acid Added
[2022-09-21] MEDS: Dextrose 5 % and 0.45 % NaCl 1,000 ML 100 ML IVCONT (06:59)
[2022-09-21 07:17] LABS: Venous Blood Gas Refer to POC result
[2022-09-21 07:20] LABS: VBG Base Excess 7.9 mmol/L; VBG HCO3 30 mmol/L (22-26); VBG pCO2 35 mmHg; VBG pH 7.54 (7.32-7.43); VBG pO2 53 mmHg
--- NOTE | 2022-09-21 07:33 | PC.NURSE ---
Patient transferred to ICU at approximately 0400. On arrival patient obtunded, no response to sternal rub. Patient emergently intubated. Propofol and Levophed drips started as per orders. TLC placed RIJ following intubation. 16F OG tube place for medication administration. Indwelling heller inserted. VSS , LS dim. Afib on telemetry at controlled rate. Will continue to monitor. Report given to day shift RN.
[2022-09-21 07:38] LABS: Anion Gap 19 (12-20); Blood Urea Nitrogen 50 mg/dL (9-16); Calcium 8.4 mg/dL (8.4-10.2); Carbon Dioxide 30 mmol/L (22-29); Chloride 109 mmol/L (96-108); Creatinine Clr Calc Pharmacy 60.2; Estimated Glomerular Filt Rate 50; Glucose Fasting 274 mg/dL (60-99); Potassium 3.9 mmol/L (3.3-5.1); Sodium 154 mmol/L (135-145)
[2022-09-21 07:40] LABS: Glucose, Whole Blood 199 mg/dL (60-115)
[2022-09-21] MEDS: Acetaminophen 325 MG TABLET 650 MG PO (07:46)
[2022-09-21] MEDS: 0.9 % Sodium Chloride Flush 3 ML SYRINGE IVFLUSH ×2 (07:49→15:54)
[2022-09-21 08:13] LABS: ~Lactic Acid-LAB USE ONLY 4.1 mmol/L (0.5-2.0)
[2022-09-21 08:14] LABS: Troponin-I High Sensitivity 832.6 ng/L (<3.5-35.0)
[2022-09-21 08:22] LABS: Ammonia 50 umol/L (13-55)
[2022-09-21] MEDS: Thiamine HCL 100 MG in 0.9 % Sodium Chloride 100 ML 202 MG IV (08:29)
[2022-09-21] MEDS: Aspirin 81 MG TAB.CHEW 324 MG PO (08:30)
[2022-09-21 09:12] LABS: Reflex Lactate? 2 Y
--- NOTE | 2022-09-21 09:24 | MHC.SLORD ---
Speech Language Pathology Order Status: Pt intubated thus order for swallow eval deferred.
[2022-09-21 10:15] LABS: ~Lactic Acid-LAB USE ONLY 3.2 mmol/L (0.5-2.0)
--- NOTE | 2022-09-21 10:26 | MHC.CLN ---
NUTRITION PATIENT INTUBATED AND SEDATED. TUBE FEED GLUCERNA AT MAX GOAL RATE 50 ML PER HOUR. FLUSH 240 ML WATER Q 4 HOURS. PROVIDES: 2115 KCALS WITH SEDATION (28 KCALS/KG IBW); 50 G PROTEIN (.66 G/KG IBW); 2464 ML FREE WATER FROM FORMULA AND FLUSH (32.7 ML/KG IBW). FOLLOW WITH TEAM FOR NUTRITION SUPPORT.
--- NOTE | 2022-09-21 11:15 | P.PNCC_ITS ---
Subjective Subjective Date of Service: 09/21/22 Interval History: 71-year-old male chronic alcoholic and known ischemic cardiomyopathy with 25% ejection fraction chronic atrial fibrillation with left bundle branch block which is complete has been on carvedilol and digoxin for rate control supposed to be taking Entresto for his myopathy and digoxin for rate control he is also a type 2 diabetic on metformin presented with altered mental status negative toxicology screen probable alcohol withdrawal syndrome and was started on phenobarbital and Zyprexa found to be unresponsive noted that he was an acute respiratory acidosis with a pCO2 of 120 along with a metabolic acidosis and positive anion gap with very low GCS score he was intubated and currently now intubated and sedated and on the ventilator he has a resolved acute respiratory acidosis but also has an acute on chronic renal failure bedside echo shows paradoxical septal motion from the left bundle branch block and and otherwise relative diffuse hypokinesis with an estimated ejection fraction of about 25% with no primary valve or pericardial disease no significant right ventricular dysfunction and he has a not enlarged but distended IVC without inspiratory collapse and that goes along with the measured CVP of 11 all lines are in good position including his OG tube and the chest was essentially clear Critical Care Time (minutes): 60 Physical Exam Vital Signs: Vital Signs: Last Vital Signs Temp 100.4 F 09/21/22 11:00 Pulse 84 09/21/22 11:00 Resp 21 H 09/21/22 11:00 BP 143/58 H 09/21/22 11:00 Pulse Ox 93 09/21/22 11:00 O2 Del Method 09/21/22 11:00 O2 Flow Rate 3 09/21/22 00:00 FiO2 25 09/21/22 11:00 BMI result Body Mass Index 36.5 sedated and intubated bedside echo with approximate 25% ejection frac tion chest without adventitious sounds abdomen soft without organomegaly skin intact with no livedo and no acrocyanosis Objective Data Labs 09/21/22 04:20 09/21/22 07:09 Labs: Laboratory Results - last 24 hr 09/20/22 09/20/22 09/20/22 11:21 16:25 20:52 WBC RBC Hgb Hct MCV MCH MCHC RDW Plt Count MPV Immature Gran % (Auto) Neut % (Auto) Lymph % (Auto) [place] % (Auto) Eos % (Auto) Baso % (Auto) Lymph # (Auto) [place] # (Auto) Eos # (Auto) Baso # (Auto) Abs Immat Gran (auto) Absolute Neuts (auto) Absolute Nucleated RBC Nucleated RBC % (auto) O2 Saturation ABG pH at Pt Temp ABG pCO2 at Pt Temp ABG pO2 at Pt Temp ABG HCO3 ABG Base Excess (Actual) VBG pH VBG pCO2 VBG pO2 VBG HCO3 VBG O2 Saturation VBG Base Excess Sodium Potassium Chloride Carbon Dioxide Anion Gap BUN Creatinine Estim Creat Clear Calc Estimated GFR POC Glucose 200 H 196 H 218 H Random Glucose Fasting Glucose Lactic Acid Lactic Acid F/U @ 2Hr Lactic Acid F/U @ 4Hr Calcium Phosphorus Magnesium Total Bilirubin AST ALT Alkaline Phosphatase Ammonia Troponin I High Sens B-Natriuretic Peptide Total Protein Albumin 09/21/22 09/21/22 09/21/22 02:56 04:20 04:20 WBC Cancelled RBC Cancelled Hgb Cancelled Hct Cancelled MCV Cancelled MCH Cancelled MCHC Cancelled RDW Cancelled Plt Count Cancelled MPV Cancelled Immature Gran % (Auto) Cancelled Neut % (Auto) Cancelled Lymph % (Auto) Cancelled [place] % (Auto) Cancelled Eos % (Auto) Cancelled Baso % (Auto) Cancelled Lymph # (Auto) Cancelled [place] # (Auto) Cancelled Eos # (Auto) Cancelled Baso # (Auto) Cancelled Abs Immat Gran (auto) Cancelled Absolute Neuts (auto) Cancelled Absolute Nucleated RBC Cancelled Nucleated RBC % (auto) Cancelled O2 Saturation 93.0 ABG pH at Pt Temp 7.11 L* ABG pCO2 at Pt Temp 121 H* ABG pO2 at Pt Temp 93 ABG HCO3 39 H ABG Base Excess (Actual) 4.4 VBG pH VBG pCO2 VBG pO2 VBG HCO3 VBG O2 Saturation VBG Base Excess Sodium 153 H Potassium 5.9 H D Chloride 107 Carbon Dioxide 38 H Anion Gap 14 BUN 48 H Creatinine 1.33 Estim Creat Clear Calc 62.9 Estimated GFR 53 POC Glucose Random Glucose 242 H Fasting Glucose Lactic Acid Lactic Acid F/U @ 2Hr Lactic Acid F/U @ 4Hr Calcium 8.1 L D Phosphorus 5.8 H Magnesium 2.2 Total Bilirubin 1.2 H AST 31 ALT 26 Alkaline Phosphatase 216 H Ammonia Troponin I High Sens B-Natriuretic Peptide Total Protein 6.0 L Albumin 2.4 L 03/06/23 03/06/23 03/06/23 04:20 04:20 04:20 WBC 10.4 RBC 4.66 Hgb 12.3 L Hct 42.1 MCV 90.3 MCH 26.4 L MCHC 29.2 L RDW 19.5 H Plt Count 368 MPV 10.6 Immature Gran % (Auto) 4.3 H Neut % (Auto) 83.4 H Lymph % (Auto) 5.4 L [place] % (Auto) 6.3 Eos % (Auto) 0.1 Baso % (Auto) 0.5 Lymph # (Auto) 0.6 L [place] # (Auto) 0.7 Eos # (Auto) 0.0 Baso # (Auto) 0.1 Abs Immat Gran (auto) 0.45 H Absolute Neuts (auto) 8.7 H Absolute Nucleated RBC 0.090 H Nucleated RBC % (auto) 0.9 H O2 Saturation ABG pH at Pt Temp ABG pCO2 at Pt Temp ABG pO2 at Pt Temp ABG HCO3 ABG Base Excess (Actual) VBG pH VBG pCO2 VBG pO2 VBG HCO3 VBG O2 Saturation VBG Base Excess Sodium Potassium Chloride Carbon Dioxide Anion Gap BUN Creatinine Estim Creat Clear Calc Estimated GFR POC Glucose Random Glucose Fasting Glucose Lactic Acid Lactic Acid F/U @ 2Hr Lactic Acid F/U @ 4Hr Calcium Phosphorus Magnesium Total Bilirubin AST ALT Alkaline Phosphatase Ammonia Troponin I High Sens 644.8 H* D B-Natriuretic Peptide 4030 H Total Protein Albumin 09/21/22 09/21/22 09/21/22 04:30 04:40 04:40 WBC RBC Hgb Hct MCV MCH MCHC RDW Plt Count MPV Immature Gran % (Auto) Neut % (Auto) Lymph % (Auto) [place] % (Auto) Eos % (Auto) Baso % (Auto) Lymph # (Auto) [place] # (Auto) Eos # (Auto) Baso # (Auto) Abs Immat Gran (auto) Absolute Neuts (auto) Absolute Nucleated RBC Nucleated RBC % (auto) O2 Saturation ABG pH at Pt Temp ABG pCO2 at Pt Temp ABG pO2 at Pt Temp ABG HCO3 ABG Base Excess (Actual) VBG pH VBG pCO2 VBG pO2 VBG HCO3 VBG O2 Saturation VBG Base Excess Sodium Potassium Chloride Carbon Dioxide Anion Gap BUN Creatinine Estim Creat Clear Calc Estimated GFR POC Glucose 207 H Random Glucose Fasting Glucose Lactic Acid 2.6 H* Lactic Acid F/U @ 2Hr Lactic Acid F/U @ 4Hr Calcium Phosphorus Magnesium Total Bilirubin AST ALT Alkaline Phosphatase Ammonia 46 Troponin I High Sens B-Natriuretic Peptide Total Protein Albumin 09/21/22 09/21/22 09/21/22 07:09 07:09 07:09 WBC RBC Hgb Hct MCV MCH MCHC RDW Plt Count MPV Immature Gran % (Auto) Neut % (Auto) Lymph % (Auto) [place] % (Auto) Eos % (Auto) Baso % (Auto) Lymph # (Auto) [place] # (Auto) Eos # (Auto) Baso # (Auto) Abs Immat Gran (auto) Absolute Neuts (auto) Absolute Nucleated RBC Nucleated RBC % (auto) O2 Saturation ABG pH at Pt Temp ABG pCO2 at Pt Temp ABG pO2 at Pt Temp ABG HCO3 ABG Base Excess (Actual) VBG pH VBG pCO2 VBG pO2 VBG HCO3 VBG O2 Saturation VBG Base Excess Sodium 154 H Potassium 3.9 D Chloride 109 H Carbon Dioxide 30 H Anion Gap 19 BUN 50 H Creatinine 1.39 Estim Creat Clear Calc 60.2 Estimated GFR 50 POC Glucose Random Glucose Fasting Glucose 274 H Lactic Acid Lactic Acid F/U @ 2Hr 4.1 H* Lactic Acid F/U @ 4Hr Calcium 8.4 Phosphorus Magnesium Total Bilirubin AST ALT Alkaline Phosphatase Ammonia Troponin I High Sens 832.6 H* B-Natriuretic Peptide Total Protein Albumin 09/21/22 09/21/22 09/21/22 07:14 07:37 08:04 WBC RBC Hgb Hct MCV MCH MCHC RDW Plt Count MPV Immature Gran % (Auto) Neut % (Auto) Lymph % (Auto) [place] % (Auto) Eos % (Auto) Baso % (Auto) Lymph # (Auto) [place] # (Auto) Eos # (Auto) Baso # (Auto) Abs Immat Gran (auto) Absolute Neuts (auto) Absolute Nucleated RBC Nucleated RBC % (auto) O2 Saturation ABG pH at Pt Temp ABG pCO2 at Pt Temp ABG pO2 at Pt Temp ABG HCO3 ABG Base Excess (Actual) VBG pH 7.54 H VBG pCO2 35 VBG pO2 53 VBG HCO3 30 H VBG O2 Saturation 88.0 VBG Base Excess 7.9 Sodium Potassium Chloride Carbon Dioxide Anion Gap BUN Creatinine Estim Creat Clear Calc Estimated GFR POC Glucose 199 H Random Glucose Fasting Glucose Lactic Acid Lactic Acid F/U @ 2Hr Lactic Acid F/U @ 4Hr Calcium Phosphorus Magnesium Total Bilirubin AST ALT Alkaline Phosphatase Ammonia 50 Troponin I High Sens B-Natriuretic Peptide Total Protein Albumin 09/21/22 09:42 WBC RBC Hgb Hct MCV MCH MCHC RDW Plt Count MPV Immature Gran % (Auto) Neut % (Auto) Lymph % (Auto) [place] % (Auto) Eos % (Auto) Baso % (Auto) Lymph # (Auto) [place] # (Auto) Eos # (Auto) Baso # (Auto) Abs Immat Gran (auto) Absolute Neuts (auto) Absolute Nucleated RBC Nucleated RBC % (auto) O2 Saturation ABG pH at Pt Temp ABG pCO2 at Pt Temp ABG pO2 at Pt Temp ABG HCO3 ABG Base Excess (Actual) VBG pH VBG pCO2 VBG pO2 VBG HCO3 VBG O2 Saturation VBG Base Excess Sodium Potassium Chloride Carbon Dioxide Anion Gap BUN Creatinine Estim Creat Clear Calc Estimated GFR POC Glucose Random Glucose Fasting Glucose Lactic Acid Lactic Acid F/U @ 2Hr Lactic Acid F/U @ 4Hr 3.2 H* Calcium Phosphorus Magnesium Total Bilirubin AST ALT Alkaline Phosphatase Ammonia Troponin I High Sens B-Natriuretic Peptide Total Protein Albumin Microbiology Microbiology Results: Microbiology 09/21/22 04:00 Sputum - Suctioned Gram Stain - Final 09/16/22 14:56 Blood - Venous Blood Culture - Preliminary No growth after 48 hours. 09/16/22 14:56 Blood - Venous Blood Culture - Preliminary No growth after 48 hours. Progress Note: A&P Assessment and plan (1) Dry skin dermatitis: Status: Acute (2) Encephalopathy: Status: Acute (3) Alcoholism: Status: Acute (4) Acute CVA (cerebrovascular accident): Status: Acute (5) Acute encephalopathy: Status: Acute (6) Acute kidney injury: Status: Acute (7) Atrial fibrillation with rapid ventricular response: Status: Acute (8) Acute dyspnea: Status: Acute (9) Acute hyperglycemia: Status: Acute (10) Chronic systolic CHF (congestive heart failure): Status: Acute (11) Atrial fibrillation: Status: Acute (12) Delirium due to another medical condition: Status: Acute (13) Delirium tremens: Status: Acute (14) DKA (diabetic ketoacidosis): Status: Acute (15) Acute hyperglycemia: Status: Acute (16) Ischemic congestive cardiomyopathy: Status: Acute (17) Acute hypernatremia: Status: Acute Plan so at this point he remains intubated with altered mental status in large part due to multifactorial issues including delirium tremens hypernatremia acute on chronic renal insufficiency and it appears that he might also have had an acute myocardial injury and I can not determine yet if this is myocarditis the verses an acute ischemic injury with a component of congestive heart failure and so I will give him a maintenance fluid which will consist of D5 and half normal saline and see if his hypernatremia resolves along with initiating feedings and free water replacement via his GI tract he is also on an empiric antibiotic adeno which would cover him for any potential aspiration though not manifest on chest x-ray and he will be on sympathomimetic therapy for myocardial and cardiac output support and will track his renal function and fluid and electrolytes as the day goes by to be sure we restore adequacy and help resolve his hypernatremia and I am going to add aspirin to his Lovenox therapy because apparently the had multifocal embolic CVAs and that was despite being on Lovenox Quality Stroke Does the patient have a stroke diagnosis?: No VTE Prior VTE?: No VTE Risk Level:: Medical - moderate - high VTE Device Contraindication: Treatment Not Indicated VTE Drug Contraindication: N/A - Med Ordered
[2022-09-21 11:55] LABS: Glucose, Whole Blood 178 mg/dL (60-115)
--- NOTE | 2022-09-21 12:06 | MHC.CM.PN ---
Pt intubated in ICU and unable to participate in CM assessment: Pt's dtr Veena is serving as next of contact since pt's HCP Abimael is currently incarcerated. No plans for extubation at this time. CM to follow
[2022-09-21 13:29] LABS: Venous Blood Gas Refer to POC result
[2022-09-21 13:29] LABS: VBG Base Excess 13.3 mmol/L; VBG HCO3 34 mmol/L (22-26); VBG pCO2 32 mmHg; VBG pH 7.63 (7.32-7.43); VBG pO2 51 mmHg
[2022-09-21 13:44] LABS: Anion Gap 16 (12-20); Blood Urea Nitrogen 46 mg/dL (9-16); Carbon Dioxide 31 mmol/L (22-29); Chloride 109 mmol/L (96-108); Creatinine Clr Calc Pharmacy 64.4; Estimated Glomerular Filt Rate 54; Glucose Random 212 mg/dL (60-115); Potassium 3.3 mmol/L (3.3-5.1); Sodium 153 mmol/L (135-145)
[2022-09-21] MEDS: KCl 20 mEq in 0.45% Sod 20 MEQ/1,000 ML IV.SOLN 80 MEQ IVCONT (15:52)
[2022-09-21 16:50] LABS: Glucose, Whole Blood 187 mg/dL (60-115)
[2022-09-21 18:02] LABS: Venous Blood Gas Refer to POC result
[2022-09-21 18:04] LABS: VBG Base Excess 10.1 mmol/L; VBG HCO3 33 mmol/L (22-26); VBG pCO2 39 mmHg; VBG pH 7.53 (7.32-7.43); VBG pO2 48 mmHg
[2022-09-21 18:09] LABS: Lactic Acid 1.3 mmol/L (0.5-2.0)
[2022-09-21 18:18] LABS: Anion Gap 12 (12-20); Blood Urea Nitrogen 44 mg/dL (9-16); Carbon Dioxide 36 mmol/L (22-29); Chloride 109 mmol/L (96-108); Creatinine Clr Calc Pharmacy 66.4; Estimated Glomerular Filt Rate 56; Glucose Random 205 mg/dL (60-115); Potassium 3.5 mmol/L (3.3-5.1); Sodium 153 mmol/L (135-145)
--- NOTE | 2022-09-21 18:21 | PC.NURSE ---
Pt continued to be sedated and intubated, on AC settings, changed frequently to correct acidosis/alkalosis by , currently on 16/400/5/25%, tolerating and satting in the mid 90s. Pt weaned off Levophed gtt, currently paused, MAP stable. Pt continues to be Afib with BBB in the 70s-80s with occasional PVCs. Pt has minimal clear/ whitish secretions, suctioned PRN. Oral secretions of ayden to clear, PO care provided PRN. Pt started on TF, currently at 30cc/hr and tolerating, FWF given per order, no residuals at this time. Pt's heller in place and draining dark yellow urine, UO 45-65cc/hr. Pt bathed and prescription lotion applied to lower legs (dry scaly venous stasis). Pt otherwise is resting in no acute distress. Repositioned every 2 hrs and as needed, prevalon system and wedges utilized. Family visiting at bedside, updated on plan of care, all questions answered. Safety maintained throughout. Will continue to monitor.
[2022-09-21] MEDS: KCl 20 mEq in 5% Dex/0.9% Sod 20 MEQ/1,000 ML IV.SOLN 80 MEQ IV (19:58)
[2022-09-21 20:24] LABS: Glucose, Whole Blood 200 mg/dL (60-115)
[2022-09-21] MEDS: Insulin Lispro 100 UNIT/ML 3 ML VIAL SUBCUT (21:23)
[2022-09-22] VITALS (32 sets, daily range): BP systolic 126–158; BP diastolic 60–90; PULSE 68–93; RESP 14–20; TEMP 34.5–37.1; O2SAT 89–96; BMI 38.2
[2022-09-22] MEDS: Chlorhexidine Gluc Oral Rinse 15 ML MOUTHWASH BUCCAL ×4 (00:17→21:03)
[2022-09-22] MEDS: Enoxaparin Sodium 80 MG/0.8 ML SYRINGE SUBCUT ×2 (00:22→12:44)
[2022-09-22] MEDS: 0.9 % Sodium Chloride Flush 3 ML SYRINGE IVFLUSH ×4 (00:25→23:18)
[2022-09-22] MEDS: propofoL 1,000 MG/100 ML VIAL 34.65 MG IVCONT ×10 (00:25→23:22)
[2022-09-22 03:21] LABS: Glucose, Whole Blood 250 mg/dL (60-115)
[2022-09-22] MEDS: Insulin Lispro 100 UNIT/ML 3 ML VIAL SUBCUT ×4 (03:21→23:53)
[2022-09-22 04:32] LABS: VBG Base Excess 8.9 mmol/L; VBG HCO3 32 mmol/L (22-26); VBG pCO2 38 mmHg; VBG pH 7.53 (7.32-7.43); VBG pO2 50 mmHg
[2022-09-22 04:37] LABS: Venous Blood Gas Refer to POC result
[2022-09-22 04:47] LABS: MANUAL DIFF FLAG NO
[2022-09-22 04:56] LABS: Basophils Percent Auto 0.3 % (0-2); Eosinophils Absolute Auto 0.2 X10*3/uL (0.0-0.4); Eosinophils Percent Auto 2.4 % (0-4); Hemoglobin 10.6 g/dl (14.0-18.0); Imm Gran Abs Auto 0.14 X10*3/uL (0.00-0.03); Imm Gran Pct Auto 1.6 % (0.0-0.4); Lymphocytes Absolute Auto 1.3 X10*3/uL (1.2-4.9); Lymphocytes Percent Auto 14.9 % (20-40); Mean Corpuscular HGB Conc 30.3 g/dl (31.0-36.0); Mean Corpuscular Hemoglobin 25.7 pg (27.0-33.0); Mean Corpuscular Volume 84.7 fL (80.0-98.0); Mean Platelet Volume 10.5 fL (9.4-12.4); Monocytes Absolute Auto 0.4 X10*3/uL (0.1-1.2); Monocytes Percent Auto 4.8 % (2-11); NRBC Pct Auto 0.2 /100WBC (0.0-0.2); Neutrophils Absolute Auto 6.8 x10*3/uL (2.0-8.3); Platelet Count 276 X10*3/uL (160-400); Red Blood Count 4.13 X10*6/uL (4.60-5.80); Red Cell Distribution Width 19.5 % (11.0-16.0); White Blood Count 8.9 X10*3/uL (4.8-10.8)
[2022-09-22 05:22] LABS: Troponin-I High Sensitivity 593.9 ng/L (<3.5-35.0)
[2022-09-22 05:30] LABS: Alanine Aminotransferase 16 U/L (0-40); Albumin Level 2.6 g/dL (3.5-5.0); Alkaline Phosphatase 144 U/L (39-117); Ammonia 39 umol/L (13-55); Anion Gap 16 (12-20); Aspartate Amino Transferase 27 U/L (5-37); Bilirubin Total 1.1 mg/dL (0.0-1.0); Blood Urea Nitrogen 39 mg/dL (9-16); Calcium 7.6 mg/dL (8.4-10.2); Carbon Dioxide 30 mmol/L (22-29); Chloride 110 mmol/L (96-108); Creatinine Clr Calc Pharmacy 69.7; Estimated Glomerular Filt Rate 59; Glucose Random 249 mg/dL (60-115); Phosphorus 1.4 mg/dL (2.7-4.5); Sodium 152 mmol/L (135-145); Total Protein 5.5 g/dL (6.5-8.0)
[2022-09-22] MEDS: Pantoprazole Sodium 40 MG/10 ML VIAL IVPUSH (05:39)
[2022-09-22] MEDS: KCl 20 mEq in 5 % Dextrose 20 MEQ/1,000 ML IV.SOLN 80 MEQ IVCONT (07:31)
[2022-09-22] MEDS: Thiamine HCL 100 MG in 0.9 % Sodium Chloride 100 ML 202 MG IV (09:02)
--- NOTE | 2022-09-22 10:24 | MHC.CLN ---
F/U DISCUSSED WITH TEAM AT [facility] ROUNDS. PATIENT INTUBATED AND SEDATED. TUBE FEED GLUCERNA AT MAX GOAL RATE 50 ML PER HOUR. FLUSH 240 ML WATER Q 4 HOURS. PROVIDES: 2115 KCALS WITH SEDATION (28 KCALS/KG IBW); 50 G PROTEIN (.66 G/KG IBW); 2464 ML FREE WATER FROM FORMULA AND FLUSH (32.7 ML/KG IBW). MONITOR TUBE FEED TOLERANCE AND LABS. FOLLOW WITH TEAM FOR PLAN OF CARE.
--- NOTE | 2022-09-22 10:28 | MHC.SPEECHCO ---
Per RN, Pt to remained sedated today. LOSS PREVENTION MANAGER will continue to monitor.
[2022-09-22 11:29] LABS: Glucose, Whole Blood 220 mg/dL (60-115)
[2022-09-22 15:22] LABS: Anion Gap 12 (12-20); Blood Urea Nitrogen 32 mg/dL (9-16); Calcium 7.6 mg/dL (8.4-10.2); Carbon Dioxide 32 mmol/L (22-29); Chloride 108 mmol/L (96-108); Creatinine Clr Calc Pharmacy 82.4; Estimated Glomerular Filt Rate > 60; Glucose Random 245 mg/dL (60-115); Potassium 3.8 mmol/L (3.3-5.1); Sodium 148 mmol/L (135-145)
--- NOTE | 2022-09-22 17:09 | P.PNCC_ITS ---
Subjective Subjective Date of Service: 09/22/22 Interval History: 71-year-old male chronic alcoholic with ischemic cardiomyopathy chronic atrial fibrillation left bundle branch block reduced ejection fraction at about 25% who had multiple bilateral infarcts became increasingly encephalopathic with agitated delirium and deemed in part to be due to did delirium tremens and after and significant sedation protocol became obtunded with very low GCS score requiring intubation . he had low FiO2 and minute ventilatory requirements bedside echo demonstrating septal paradox and overall diffuse hypokinesis with a positive troponin so he was placed on systemic anticoagulation because of the the bilateral embolic phenomena as well because he was on apixaban in a because of the atrial fibri llation before and although this is all white matter involvement not a typical embolic it is just that it is multiple sites in bilateral so it raises the risk that could be but he is off pressors just receiving fluid and he has a stable central venous pressure of about 11-12 at this point but the improvement in his hypernatremia now with a sodium down to 148 means we we have the option if CVP rises further to stop his IV fluids which were designed to completely correct the hypernatremia renal function seems to be returning to normal as well Critical Care Time (minutes): 45 Physical Exam Vital Signs: Vital Signs: Last Vital Signs Temp 98.6 F 09/22/22 16:00 Pulse 75 09/22/22 17:00 Resp 16 09/22/22 17:00 BP 140/69 H 09/22/22 17:00 Pulse Ox 95 09/22/22 17:00 O2 Del Method 09/22/22 17:00 O2 Flow Rate 3 09/21/22 00:00 FiO2 25 09/22/22 17:00 BMI result Body Mass Index 38.2 sedated and intubated with stable of vital signs 25% ejection fraction with septal paradox defined by bedside echo no wheezes no diaphragmatic effort abdomen soft with no organomegaly and tolerating feedings Objective Data Labs 09/22/22 04:20 09/22/22 14:58 Labs: Laboratory Results - last 24 hr 09/21/22 09/21/22 09/21/22 17:52 17:52 17:57 WBC RBC Hgb Hct MCV MCH MCHC RDW Plt Count MPV Immature Gran % (Auto) Neut % (Auto) Lymph % (Auto) [place] % (Auto) Eos % (Auto) Baso % (Auto) Lymph # (Auto) [place] # (Auto) Eos # (Auto) Baso # (Auto) Abs Immat Gran (auto) Absolute Neuts (auto) Absolute Nucleated RBC Nucleated RBC % (auto) VBG pH 7.53 H VBG pCO2 39 VBG pO2 48 VBG HCO3 33 H VBG O2 Saturation 80.0 VBG Base Excess 10.1 Sodium 153 H Potassium 3.5 Chloride 109 H Carbon Dioxide 36 H Anion Gap 12 BUN 44 H Creatinine 1.26 Estim Creat Clear Calc 66.4 Estimated GFR 56 POC Glucose Random Glucose 205 H Lactic Acid 1.3 Calcium 8.0 L Phosphorus Magnesium Total Bilirubin AST ALT Alkaline Phosphatase Ammonia Troponin I High Sens Total Protein Albumin 09/21/22 09/22/22 09/22/22 20:20 03:17 04:20 WBC 8.9 RBC 4.13 L Hgb 10.6 L Hct 35.0 L MCV 84.7 D MCH 25.7 L MCHC 30.3 L RDW 19.5 H Plt Count 276 MPV 10.5 Immature Gran % (Auto) 1.6 H Neut % (Auto) 76.0 H Lymph % (Auto) 14.9 L [place] % (Auto) 4.8 Eos % (Auto) 2.4 Baso % (Auto) 0.3 Lymph # (Auto) 1.3 [place] # (Auto) 0.4 Eos # (Auto) 0.2 Baso # (Auto) 0.0 Abs Immat Gran (auto) 0.14 H Absolute Neuts (auto) 6.8 Absolute Nucleated RBC 0.020 H Nucleated RBC % (auto) 0.2 VBG pH VBG pCO2 VBG pO2 VBG HCO3 VBG O2 Saturation VBG Base Excess Sodium Potassium Chloride Carbon Dioxide Anion Gap BUN Creatinine Estim Creat Clear Calc Estimated GFR POC Glucose 200 H 250 H Random Glucose Lactic Acid Calcium Phosphorus Magnesium Total Bilirubin AST ALT Alkaline Phosphatase Ammonia Troponin I High Sens Total Protein Albumin 09/22/22 09/22/22 09/22/22 04:20 04:20 04:20 WBC RBC Hgb Hct MCV MCH MCHC RDW Plt Count MPV Immature Gran % (Auto) Neut % (Auto) Lymph % (Auto) [place] % (Auto) Eos % (Auto) Baso % (Auto) Lymph # (Auto) [place] # (Auto) Eos # (Auto) Baso # (Auto) Abs Immat Gran (auto) Absolute Neuts (auto) Absolute Nucleated RBC Nucleated RBC % (auto) VBG pH VBG pCO2 VBG pO2 VBG HCO3 VBG O2 Saturation VBG Base Excess Sodium 152 H Potassium 4.0 Chloride 110 H Carbon Dioxide 30 H Anion Gap 16 BUN 39 H Creatinine 1.20 Estim Creat Clear Calc 69.7 Estimated GFR 59 POC Glucose Random Glucose 249 H Lactic Acid Calcium 7.6 L Phosphorus 1.4 L Magnesium 2.0 Total Bilirubin 1.1 H AST 27 ALT 16 Alkaline Phosphatase 144 H Ammonia 39 Troponin I High Sens 593.9 H* Total Protein 5.5 L Albumin 2.6 L 09/22/22 09/22/22 09/22/22 04:24 11:25 14:58 WBC RBC Hgb Hct MCV MCH MCHC RDW Plt Count MPV Immature Gran % (Auto) Neut % (Auto) Lymph % (Auto) [place] % (Auto) Eos % (Auto) Baso % (Auto) Lymph # (Auto) [place] # (Auto) Eos # (Auto) Baso # (Auto) Abs Immat Gran (auto) Absolute Neuts (auto) Absolute Nucleated RBC Nucleated RBC % (auto) VBG pH 7.53 H VBG pCO2 38 VBG pO2 50 VBG HCO3 32 H VBG O2 Saturation 82.0 VBG Base Excess 8.9 Sodium 148 H Potassium 3.8 Chloride 108 Carbon Dioxide 32 H Anion Gap 12 BUN 32 H Creatinine 1.04 Estim Creat Clear Calc 82.4 Estimated GFR > 60 POC Glucose 220 H Random Glucose 245 H Lactic Acid Calcium 7.6 L Phosphorus Magnesium Total Bilirubin AST ALT Alkaline Phosphatase Ammonia Troponin I High Sens Total Protein Albumin Microbiology Microbiology Results: Microbiology 09/21/22 04:00 Sputum - Suctioned Gram Stain - Final 09/21/22 04:00 Sputum - Suctioned Sputum Culture - Preliminary No growth to date. 09/16/22 14:56 Blood - Venous Blood Culture - Final No growth after 5 days. 09/16/22 14:56 Blood - Venous Blood Culture - Final No growth after 5 days. Progress Note: A&P Assessment and plan (1) Acute hypernatremia: Status: Acute (2) Ischemic congestive cardiomyopathy: Status: Acute (3) Dry skin dermatitis: Status: Acute (4) Encephalopathy: Status: Acute (5) Alcoholism: Status: Acute (6) Acute CVA (cerebrovascular accident): Status: Acute (7) Acute encephalopathy: Status: Acute (8) Acute kidney injury: Status: Acute (9) Atrial fibrillation with rapid ventricular response: Status: Acute (10) Acute dyspnea: Status: Acute (11) Acute hyperglycemia: Status: Acute (12) Chronic systolic CHF (congestive heart failure): Status: Acute (13) Atrial fibrillation: Status: Acute (14) Delirium due to another medical condition: Status: Acute (15) Delirium tremens: Status: Acute (16) DKA (diabetic ketoacidosis): Status: Acute (17) Acute hyperglycemia: Status: Acute Plan the plan with the correction of hypernatremia is to follow CVP the diurese if necessary and stop fluids if necessary but probable lifting of sedation in the morning to evaluate cognitive function and if appropriate try a pressure support ventilator weaning trial Quality Stroke Does the patient have a stroke diagnosis?: No VTE Prior VTE?: No VTE Risk Level:: Medical - moderate - high VTE Device Contraindication: Treatment Not Indicated VTE Drug Contraindication: N/A - Med Ordered
[2022-09-22 18:15] LABS: Glucose, Whole Blood 240 mg/dL (60-115)
[2022-09-22] MEDS: KCl 20 mEq in 5 % Dextrose 20 MEQ/1,000 ML IV.SOLN 50 MEQ IVCONT (21:02)
[2022-09-22 23:48] LABS: Glucose, Whole Blood 190 mg/dL (60-115)
[2022-09-23] VITALS (28 sets, daily range): BP systolic 120–158; BP diastolic 64–100; PULSE 72–98; RESP 14–22; TEMP 34.8–38.5; O2SAT 93–98; BMI 38.1
[2022-09-23 01:13] LABS: Anion Gap 12 (12-20); Blood Urea Nitrogen 27 mg/dL (9-16); Calcium 7.5 mg/dL (8.4-10.2); Carbon Dioxide 33 mmol/L (22-29); Chloride 107 mmol/L (96-108); Creatinine Clr Calc Pharmacy 90.3; Estimated Glomerular Filt Rate > 60; Glucose Random 235 mg/dL (60-115); Potassium 3.7 mmol/L (3.3-5.1); Sodium 148 mmol/L (135-145)
[2022-09-23] MEDS: Enoxaparin Sodium 80 MG/0.8 ML SYRINGE SUBCUT ×2 (01:35→12:42)
[2022-09-23] MEDS: propofoL 1,000 MG/100 ML VIAL 34.65 MG IVCONT ×2 (02:09→04:56)
[2022-09-23 04:57] LABS: VBG Base Excess 8.6 mmol/L; VBG HCO3 31 mmol/L (22-26); VBG pCO2 38 mmHg; VBG pH 7.52 (7.32-7.43); VBG pO2 39 mmHg
[2022-09-23] MEDS: Pantoprazole Sodium 40 MG/10 ML VIAL IVPUSH (04:57)
[2022-09-23 05:08] LABS: MANUAL DIFF FLAG NO
[2022-09-23 05:15] LABS: Basophils Percent Auto 0.3 % (0-2); Eosinophils Absolute Auto 0.4 X10*3/uL (0.0-0.4); Eosinophils Percent Auto 4.4 % (0-4); Hematocrit 37.2 % (42.0-52.0); Hemoglobin 11.6 g/dl (14.0-18.0); Imm Gran Abs Auto 0.12 X10*3/uL (0.00-0.03); Imm Gran Pct Auto 1.3 % (0.0-0.4); Lymphocytes Absolute Auto 1.1 X10*3/uL (1.2-4.9); Lymphocytes Percent Auto 11.4 % (20-40); Mean Corpuscular HGB Conc 31.2 g/dl (31.0-36.0); Mean Corpuscular Hemoglobin 26.1 pg (27.0-33.0); Mean Corpuscular Volume 83.8 fL (80.0-98.0); Mean Platelet Volume 10.3 fL (9.4-12.4); Monocytes Absolute Auto 0.4 X10*3/uL (0.1-1.2); Monocytes Percent Auto 4.7 % (2-11); NRBC Pct Auto 0.2 /100WBC (0.0-0.2); Neutrophils Absolute Auto 7.2 x10*3/uL (2.0-8.3); Neutrophils Percent Auto 77.9 % (45-73); Platelet Count 277 X10*3/uL (160-400); Red Blood Count 4.44 X10*6/uL (4.60-5.80); Red Cell Distribution Width 19.7 % (11.0-16.0); White Blood Count 9.2 X10*3/uL (4.8-10.8)
[2022-09-23 05:39] LABS: Troponin-I High Sensitivity 355.5 ng/L (<3.5-35.0)
[2022-09-23 05:45] LABS: Alanine Aminotransferase 12 U/L (0-40); Albumin Level 2.3 g/dL (3.5-5.0); Alkaline Phosphatase 156 U/L (39-117); Anion Gap 11 (12-20); Aspartate Amino Transferase 20 U/L (5-37); Bilirubin Total 0.8 mg/dL (0.0-1.0); Blood Urea Nitrogen 25 mg/dL (9-16); Calcium 7.4 mg/dL (8.4-10.2); Carbon Dioxide 33 mmol/L (22-29); Chloride 105 mmol/L (96-108); Creatinine Clr Calc Pharmacy 96.1; Estimated Glomerular Filt Rate > 60; Glucose Random 245 mg/dL (60-115); Magnesium 1.6 mg/dL (1.6-2.6); Phosphorus 2.1 mg/dL (2.7-4.5); Potassium 3.8 mmol/L (3.3-5.1); Sodium 145 mmol/L (135-145); Total Protein 5.2 g/dL (6.5-8.0)
[2022-09-23] MEDS: Insulin Lispro 100 UNIT/ML 3 ML VIAL SUBCUT ×4 (05:50→23:48)
[2022-09-23 06:50] LABS: Venous Blood Gas Refer to POC result
[2022-09-23] MEDS: Magnesium Sulfate/D5W 1 GM/100 ML PIGGYBACK IV (07:00)
[2022-09-23] MEDS: 0.9 % Sodium Chloride Flush 3 ML SYRINGE IVFLUSH ×3 (07:00→19:39)
[2022-09-23] MEDS: Thiamine HCL 100 MG in 0.9 % Sodium Chloride 100 ML 202 MG IV (07:59)
[2022-09-23] MEDS: Chlorhexidine Gluc Oral Rinse 15 ML MOUTHWASH BUCCAL ×3 (07:59→19:39)
[2022-09-23] MEDS: Furosemide 40 MG/4 ML VIAL IVPUSH (08:00)
[2022-09-23] MEDS: Potassium Chloride Packet 20 MEQ PACKET PO (08:00)
--- NOTE | 2022-09-23 10:31 | MHC.CLN ---
F/U INTUBATED AND WEANING FROM SEDATION. TOLERATING TUBE FEED GLUCERNA AT MAX GOAL RATE 50 ML PER HOUR. FLUSH 240 ML WATER Q 4 HOURS. DISCUSSED WITH TEAM AT ROUNDS. MONITOR TUBE FEED TOLERANCE AND LABS. FOLLOW WITH TEAM FOR PLAN OF CARE.
--- NOTE | 2022-09-23 11:20 | MHC.CM.PN ---
Patient remains in ICU. Intubated /. Patient's HCP is his son, Abimael. Abimael is currently incarcerated. Patient's daughter, Stephanie visits in the evening after getting out of work. Patient is from home. Will need physical therapy eval for home safety when medically stable due to new CVA. Continue to monitor or d/c needs.
[2022-09-23 12:10] LABS: Glucose, Whole Blood 169 mg/dL (60-115)
--- NOTE | 2022-09-23 12:17 | PM.CCPN ---
Subjective Subjective Date of Service: 09/23/22 Interval History: 71-year-old chronic alcoholic who developed encephalopathy in part probable delirium tremens in part hypernatremia and in part he had what looked like bilateral multifocal infarcts of his brain in the face of a congestive cardiomyopathy with left bundle branch block reduced ejection fraction 25% and chronic atrial fibrillation he woke up from sedation holiday but no cognitive function yet not even tracking us in his were in the room at this point but I switched him over to a pressure control because he has low minute ventilatory in low FiO2 requirements and from that standpoint doing well but all IV fluid was stopped and a 40 mg dose of Lasix was given because of elevated central venous pressure that went up to 15 and he had an excellent diuresis in 0 from this and his central venous pressure has come down to approximately 10 and he is comfortable without diaphragmatic or accessory muscle effort at this point and we continue to await cognitive function being restored and and now his in 0 his sodium and his renal function are completely restored so he is doing well metabolically and seems to be fully withdrawn by virtue of his physical exam Critical Care Time (minutes): 45 Physical Exam Vital Signs: Vital Signs: Last Vital Signs Temp 100.8 F H 09/23/22 12:00 Pulse 83 09/23/22 12:00 Resp 22 H 09/23/22 12:00 BP 153/77 H 09/23/22 12:00 Pulse Ox 98 09/23/22 12:00 O2 Del Method 09/23/22 12:00 O2 Flow Rate 3 09/21/22 00:00 FiO2 25 09/23/22 12:00 BMI result Body Mass Index 38.1 awake and moving all 4 extremities but no cognitive function yet pressure control on the ventilator with great tidal volumes of 400-600 cc still low minutes ventilatory requirement and no accessory muscle effort no adventitious sounds bedside echo defining his 25% ejection fract ion abdomen soft with no again megaly and tolerating feedings Objective Data Labs 09/23/22 04:36 09/23/22 04:36 Labs: Laboratory Results - last 24 hr 09/22/22 09/22/22 09/22/22 14:58 18:11 23:45 WBC RBC Hgb Hct MCV MCH MCHC RDW Plt Count MPV Immature Gran % (Auto) Neut % (Auto) Lymph % (Auto) [place] % (Auto) Eos % (Auto) Baso % (Auto) Lymph # (Auto) [place] # (Auto) Eos # (Auto) Baso # (Auto) Abs Immat Gran (auto) Absolute Neuts (auto) Absolute Nucleated RBC Nucleated RBC % (auto) VBG pH VBG pCO2 VBG pO2 VBG HCO3 VBG O2 Saturation VBG Base Excess Sodium 148 H Potassium 3.8 Chloride 108 Carbon Dioxide 32 H Anion Gap 12 BUN 32 H Creatinine 1.04 Estim Creat Clear Calc 82.4 Estimated GFR > 60 POC Glucose 240 H 190 H Random Glucose 245 H Calcium 7.6 L Phosphorus Magnesium Total Bilirubin AST ALT Alkaline Phosphatase Troponin I High Sens Total Protein Albumin 09/23/22 09/23/22 09/23/22 00:25 04:36 04:36 WBC 9.2 RBC 4.44 L Hgb 11.6 L Hct 37.2 L MCV 83.8 MCH 26.1 L MCHC 31.2 RDW 19.7 H Plt Count 277 MPV 10.3 Immature Gran % (Auto) 1.3 H Neut % (Auto) 77.9 H Lymph % (Auto) 11.4 L [place] % (Auto) 4.7 Eos % (Auto) 4.4 H Baso % (Auto) 0.3 Lymph # (Auto) 1.1 L [place] # (Auto) 0.4 Eos # (Auto) 0.4 Baso # (Auto) 0.0 Abs Immat Gran (auto) 0.12 H Absolute Neuts (auto) 7.2 Absolute Nucleated RBC 0.020 H Nucleated RBC % (auto) 0.2 VBG pH VBG pCO2 VBG pO2 VBG HCO3 VBG O2 Saturation VBG Base Excess Sodium 148 H 145 Potassium 3.7 3.8 Chloride 107 105 Carbon Dioxide 33 H 33 H Anion Gap 12 11 L BUN 27 H 25 H Creatinine 0.95 0.89 Estim Creat Clear Calc 90.3 96.1 Estimated GFR > 60 > 60 POC Glucose Random Glucose 235 H 245 H Calcium 7.5 L 7.4 L Phosphorus 2.1 L Magnesium 1.6 Total Bilirubin 0.8 AST 20 ALT 12 Alkaline Phosphatase 156 H Troponin I High Sens Total Protein 5.2 L Albumin 2.3 L 09/23/22 09/23/22 09/23/22 04:36 04:50 12:06 WBC RBC Hgb Hct MCV MCH MCHC RDW Plt Count MPV Immature Gran % (Auto) Neut % (Auto) Lymph % (Auto) [place] % (Auto) Eos % (Auto) Baso % (Auto) Lymph # (Auto) [place] # (Auto) Eos # (Auto) Baso # (Auto) Abs Immat Gran (auto) Absolute Neuts (auto) Absolute Nucleated RBC Nucleated RBC % (auto) VBG pH 7.52 H VBG pCO2 38 VBG pO2 39 VBG HCO3 31 H VBG O2 Saturation 65.0 VBG Base Excess 8.6 Sodium Potassium Chloride Carbon Dioxide Anion Gap BUN Creatinine Estim Creat Clear Calc Estimated GFR POC Glucose 169 H Random Glucose Calcium Phosphorus Magnesium Total Bilirubin AST ALT Alkaline Phosphatase Troponin I High Sens 355.5 H* Total Protein Albumin Microbiology Microbiology Results: Microbiology 09/21/22 04:00 Sputum - Suctioned Gram Stain - Final 09/21/22 04:00 Sputum - Suctioned Sputum Culture - Final No growth. 09/16/22 14:56 Blood - Venous Blood Culture - Final No growth after 5 days. 09/16/22 14:56 Blood - Venous Blood Culture - Final No growth after 5 days. Progress Note: A&P Assessment and plan (1) Acute hypernatremia: Status: Acute (2) Ischemic congestive cardiomyopathy: Status: Acute (3) Dry skin dermatitis: Status: Acute (4) Encephalopathy: Status: Acute (5) Alcoholism: Status: Acute (6) Acute CVA (cerebrovascular accident): Status: Acute (7) Acute encephalopathy: Status: Acute (8) Acute kidney injury: Status: Acute (9) Atrial fibrillation with rapid ventricular response: Status: Acute (10) Acute dyspnea: Status: Acute (11) Acute hyperglycemia: Status: Acute (12) Chronic systolic CHF (congestive heart failure): Status: Acute (13) Atrial fibrillation: Status: Acute (14) Delirium due to another medical condition: Status: Acute (15) Delirium tremens: Status: Acute (16) DKA (diabetic ketoacidosis): Status: Acute (17) Acute hyperglycemia: Status: Acute Plan the plan is for a pressure support weaning trial the once he is able to cooperate and trach indicating cognitive function returning otherwise he will remain on the ventilator with continued feedings all fluids are off and will continue to follow CVP Quality Stroke Does the patient have a stroke diagnosis?: No VTE Prior VTE?: No VTE Risk Level:: Medical - moderate - high VTE Device Contraindication: Treatment Not Indicated VTE Drug Contraindication: N/A - Med Ordered
--- NOTE | 2022-09-23 12:24 | MHC.SLORD ---
Addendum entered and electronically signed by Alexandria Alberto MA, CCC-MANAGER INVESTMENT 09/23/22 13:20: D.S. Original Note: Speech Language Pathology Order Status: Pt no longer sedated, still intubated. MANAGER INVESTMENT to continue to follow and to assess swallow when appropriate.
[2022-09-23] MEDS: Acetaminophen 325 MG TABLET 650 MG PO (17:57)
[2022-09-23 18:00] LABS: Glucose, Whole Blood 167 mg/dL (60-115)
[2022-09-23] MEDS: dexmedeTOMIDidine HCL/NS 400 MCG/100 ML INFUS..BTL 30.13 MCG IVCONT (22:59)
[2022-09-23 23:47] LABS: Glucose, Whole Blood 210 mg/dL (60-115)
[2022-09-24] VITALS (27 sets, daily range): BP systolic 113–160; BP diastolic 55–98; PULSE 53–100; RESP 10–19; TEMP 35.1–38.4; O2SAT 73–100; BMI 38.5
[2022-09-24] MEDS: Enoxaparin Sodium 80 MG/0.8 ML SYRINGE SUBCUT ×2 (00:44→13:41)
[2022-09-24 04:48] LABS: VBG Base Excess 8.7 mmol/L; VBG HCO3 31 mmol/L (22-26); VBG pCO2 36 mmHg; VBG pH 7.54 (7.32-7.43); VBG pO2 49 mmHg
[2022-09-24 04:49] LABS: MANUAL DIFF FLAG NO; Venous Blood Gas Refer to POC result
[2022-09-24 04:53] LABS: Basophils Percent Auto 0.3 % (0-2); Eosinophils Absolute Auto 0.2 X10*3/uL (0.0-0.4); Eosinophils Percent Auto 1.5 % (0-4); Hematocrit 35.9 % (42.0-52.0); Hemoglobin 11.4 g/dl (14.0-18.0); Imm Gran Abs Auto 0.12 X10*3/uL (0.00-0.03); Lymphocytes Percent Auto 8.7 % (20-40); Mean Corpuscular HGB Conc 31.8 g/dl (31.0-36.0); Mean Corpuscular Hemoglobin 26.1 pg (27.0-33.0); Mean Corpuscular Volume 82.3 fL (80.0-98.0); Mean Platelet Volume 10.5 fL (9.4-12.4); Monocytes Absolute Auto 0.6 X10*3/uL (0.1-1.2); Monocytes Percent Auto 4.9 % (2-11); NRBC Pct Auto 0.2 /100WBC (0.0-0.2); Neutrophils Absolute Auto 9.7 x10*3/uL (2.0-8.3); Neutrophils Percent Auto 83.6 % (45-73); Platelet Count 240 X10*3/uL (160-400); Red Blood Count 4.36 X10*6/uL (4.60-5.80); Red Cell Distribution Width 19.5 % (11.0-16.0); White Blood Count 11.6 X10*3/uL (4.8-10.8)
[2022-09-24 05:21] LABS: Albumin Level 2.3 g/dL (3.5-5.0); Anion Gap 12 (12-20); Blood Urea Nitrogen 20 mg/dL (9-16); Calcium 7.3 mg/dL (8.4-10.2); Carbon Dioxide 32 mmol/L (22-29); Chloride 104 mmol/L (96-108); Creatinine Clr Calc Pharmacy 95.1; Estimated Glomerular Filt Rate > 60; Glucose Random 212 mg/dL (60-115); Magnesium 1.4 mg/dL (1.6-2.6); Phosphorus 2.6 mg/dL (2.7-4.5); Potassium 3.4 mmol/L (3.3-5.1); Sodium 145 mmol/L (135-145)
[2022-09-24] MEDS: Magnesium Sulfate/H2O 2 GM/50 ML PIGGYBACK IV (05:33)
[2022-09-24] MEDS: Insulin Lispro 100 UNIT/ML 3 ML VIAL SUBCUT (05:36)
[2022-09-24] MEDS: Pantoprazole Sodium 40 MG/10 ML VIAL IVPUSH (05:36)
[2022-09-24] MEDS: Thiamine HCL 100 MG in 0.9 % Sodium Chloride 100 ML 202 MG IV (07:27)
[2022-09-24] MEDS: Albumin Human 25 % 100 ML 133.33 ML IV ×2 (07:27→08:47)
[2022-09-24] MEDS: 0.9 % Sodium Chloride Flush 3 ML SYRINGE IVFLUSH ×2 (07:27→16:16)
[2022-09-24] MEDS: Chlorhexidine Gluc Oral Rinse 15 ML MOUTHWASH BUCCAL (07:28)
[2022-09-24] MEDS: Potassium Phosphate/NS 15 MMOL/250 ML PLAST..BAG 62.5 MMOL IV (07:30)
--- NOTE | 2022-09-24 10:48 | MHC.CLN ---
F/U EXTUBATED THIS MORNING. NPO PENDING SWALLOW EVAL. FOLLOW FOR DIET ADVANCEMENT AND INTAKE.
[2022-09-24] MEDS: Potassium Chloride/H20 20 MEQ/100 ML PIGGYBACK 100 MEQ IV (12:21)
[2022-09-24] MEDS: Furosemide 20 MG/2 ML VIAL IVPUSH (12:21)
[2022-09-24 12:25] LABS: Glucose, Whole Blood 158 mg/dL (60-115)
--- NOTE | 2022-09-24 12:25 | MHC.SLORD ---
Speech Language Pathology Order Status: Notified by secure text from RD patient extubated, NPO pending swallow eval. RN reported patient not appropriate for swallow eval today, post extubation having difficulty managing secretions. Will re-assess for readiness tomorrow.
--- NOTE | 2022-09-24 13:09 | PM.CCPN ---
Subjective Subjective Date of Service: 09/24/22 Interval History: 71-year-old male with a known ischemic cardiomyopathy who developed altered mental status probably on several bases with a with what looks like bilateral small white matter CVAs including frontal lobe involvement chronic alcoholic who was undergoing withdrawal in other words delirium tremens and was significantly hypernatremic as well and chronic atrial fibrillation left bundle branch block congestive cardiomyopathy with reduced systolic and diastolic reserve and 25% ejection fraction and was on a phenobarb sedation protocol and receive Zyprexa became unresponsive required intubation just extubated today even though he partially woke up he nodded that he understood he was extremely lethargic but the endotracheal cuff was leaking and I did not think it was perez to sedate him briefly change out the endotracheal tube just to perform a weaning trial so we extubated him and he has been doing comfortably well on nasal cannula but with persistent CVP of about 11 and about the and 8 L positive intake and output ratio I diuresed him once more with IV Lasix and he remains breathing comfortably but his cough is very weak stoma obtaining a chest x-ray and will probably have to go in there and periodically just stimulator more unfortunately go in there and and possible do some suctioning on comfortably but by a nasotracheal technique in order to get some pulmonary toileting which he may not be able to perform himself for hours Critical Care Time (minutes): 45 Physical Exam Vital Signs: Vital Signs: Last Vital Signs Temp 99.7 F 09/24/22 12:00 Pulse 87 09/24/22 12:00 Resp 16 09/24/22 12:00 BP 144/83 H 09/24/22 12:00 Pulse Ox 96 09/24/22 12:00 O2 Del Method 09/24/22 12:00 O2 Flow Rate 2 09/24/22 10:00 FiO2 40 09/24/22 08:00 BMI result Body Mass Index 38.5 He is lethargic but did have cognitive function Bedside echo defining a myopathy with generalized relative hypokinesis but a paradoxic septum from left bundle branch block Is got some upper airway rhonchi that you could hear but no diaphragmatic effort no accessory muscle effort no adventitious sounds Objective Data Labs 09/24/22 04:36 09/24/22 04:36 Labs: Laboratory Results - last 24 hr 09/23/22 09/23/22 09/24/22 17:54 23:38 04:36 WBC 11.6 H RBC 4.36 L Hgb 11.4 L Hct 35.9 L MCV 82.3 MCH 26.1 L MCHC 31.8 RDW 19.5 H Plt Count 240 MPV 10.5 Immature Gran % (Auto) 1.0 H Neut % (Auto) 83.6 H Lymph % (Auto) 8.7 L [place] % (Auto) 4.9 Eos % (Auto) 1.5 Baso % (Auto) 0.3 Lymph # (Auto) 1.0 L [place] # (Auto) 0.6 Eos # (Auto) 0.2 Baso # (Auto) 0.0 Abs Immat Gran (auto) 0.12 H Absolute Neuts (auto) 9.7 H Absolute Nucleated RBC 0.020 H Nucleated RBC % (auto) 0.2 VBG pH VBG pCO2 VBG pO2 VBG HCO3 VBG O2 Saturation VBG Base Excess Sodium Potassium Chloride Carbon Dioxide Anion Gap BUN Creatinine Estim Creat Clear Calc Estimated GFR POC Glucose 167 H 210 H Random Glucose Calcium Phosphorus Magnesium Albumin 09/24/22 09/24/22 09/24/22 04:36 04:40 12:21 WBC RBC Hgb Hct MCV MCH MCHC RDW Plt Count MPV Immature Gran % (Auto) Neut % (Auto) Lymph % (Auto) [place] % (Auto) Eos % (Auto) Baso % (Auto) Lymph # (Auto) [place] # (Auto) Eos # (Auto) Baso # (Auto) Abs Immat Gran (auto) Absolute Neuts (auto) Absolute Nucleated RBC Nucleated RBC % (auto) VBG pH 7.54 H VBG pCO2 36 VBG pO2 49 VBG HCO3 31 H VBG O2 Saturation 79.0 VBG Base Excess 8.7 Sodium 145 Potassium 3.4 Chloride 104 Carbon Dioxide 32 H Anion Gap 12 BUN 20 H Creatinine 0.90 Estim Creat Clear Calc 95.1 Estimated GFR > 60 POC Glucose 158 H Random Glucose 212 H Calcium 7.3 L Phosphorus 2.6 L Magnesium 1.4 L* Albumin 2.3 L Microbiology Microbiology Results: Microbiology 09/21/22 04:00 Sputum - Suctioned Gram Stain - Final 09/21/22 04:00 Sputum - Suctioned Sputum Culture - Final No growth. 09/16/22 14:56 Blood - Venous Blood Culture - Final No growth after 5 days. 09/16/22 14:56 Blood - Venous Blood Culture - Final No growth after 5 days. Progress Note: A&P Assessment and plan (1) Acute hypernatremia: Status: Acute (2) Ischemic congestive cardiomyopathy: Status: Acute (3) Dry skin dermatitis: Status: Acute (4) Encephalopathy: Status: Acute (5) Alcoholism: Status: Acute (6) Acute CVA (cerebrovascular accident): Status: Acute (7) Acute encephalopathy: Status: Acute (8) Acute kidney injury: Status: Acute (9) Atrial fibrillation with rapid ventricular response: Status: Acute (10) Acute dyspnea: Status: Acute (11) Acute hyperglycemia: Status: Acute (12) Chronic systolic CHF (congestive heart failure): Status: Acute (13) Atrial fibrillation: Status: Acute (14) Delirium due to another medical condition: Status: Acute (15) Delirium tremens: Status: Acute (16) DKA (diabetic ketoacidosis): Status: Acute (17) Acute hyperglycemia: Status: Acute Plan So gave him 1 dose of IV Lasix from which he is diuresing very well with a positive affect on terms of the airway rhonchi and his respiratory rate and is effort oral comfortable and we await for his lethargy to dissipate so that we could check his swallowing capability and possibly introduce a diet Quality Stroke Does the patient have a stroke diagnosis?: No VTE Prior VTE?: No VTE Risk Level:: Medical - moderate - high VTE Device Contraindication: Treatment Not Indicated VTE Drug Contraindication: N/A - Med Ordered
--- NOTE | 2022-09-24 14:05 | MHC.CM.PN ---
Pt successfully extubated and on n/c O2. Pt originally from home : will likely need STR: broad referrals made while awaiting formal PT/OT eval to attach for facility review. CM to follow. Will need BLS to home or SNF
--- NOTE | 2022-09-24 15:29 | PC.NURSE ---
Pt's cuff leaking, RT and MD at bedside, Pt awake, tracking and following some commands; extubated at 0820 per order, initially on 2L n/c and satting appropriately, now on RA and tolearting. Pt has moist rattling cough, unable to clear secretions at this time, RT at bedside, deep suctioned yellowish/ vasquez thick sputum. Pt kept NPO at this time, awaiting ST eval. Pt incontinent of stool, leaking around rectal tube, replaced and draining pasty yellow stool. Pt was bathed and skin care provided. Pt repositioned every 2 hrs and PRN, prevalon system and wedges utilized. CVP at 11, MD aware. Pt has the heller in place, draining dark katty urine; one time IV lasix given as ordered, effective with good UO. Pt otherwise in no acute distress. Daughter called and updated. Safety maintained throughout. Report given to ODALIS Caldwell at approximately 1500, who will continue with the plan of care.
[2022-09-24 18:13] LABS: Glucose, Whole Blood 142 mg/dL (60-115)
[2022-09-24 23:53] LABS: Glucose, Whole Blood 138 mg/dL (60-115)
[2022-09-25] VITALS (24 sets, daily range): BP systolic 120–163; BP diastolic 66–90; PULSE 78–117; RESP 13–22; TEMP 37.3–38.2; O2SAT 93–100; BMI 37.5
[2022-09-25] MEDS: Enoxaparin Sodium 80 MG/0.8 ML SYRINGE SUBCUT ×2 (03:41→13:22)
[2022-09-25 04:54] LABS: VBG HCO3 32 mmol/L (22-26); VBG pCO2 41 mmHg; VBG pH 7.49 (7.32-7.43); VBG pO2 68 mmHg
[2022-09-25 05:05] LABS: MANUAL DIFF FLAG NO
[2022-09-25 05:06] LABS: Venous Blood Gas Refer to POC result
[2022-09-25 05:10] LABS: Basophils Percent Auto 0.2 % (0-2); Eosinophils Absolute Auto 0.2 X10*3/uL (0.0-0.4); Hematocrit 34.8 % (42.0-52.0); Hemoglobin 10.6 g/dl (14.0-18.0); Imm Gran Abs Auto 0.09 X10*3/uL (0.00-0.03); Imm Gran Pct Auto 0.7 % (0.0-0.4); Lymphocytes Absolute Auto 1.3 X10*3/uL (1.2-4.9); Lymphocytes Percent Auto 10.6 % (20-40); Mean Corpuscular HGB Conc 30.5 g/dl (31.0-36.0); Mean Corpuscular Hemoglobin 25.5 pg (27.0-33.0); Mean Corpuscular Volume 83.9 fL (80.0-98.0); Mean Platelet Volume 10.8 fL (9.4-12.4); Monocytes Absolute Auto 0.6 X10*3/uL (0.1-1.2); Monocytes Percent Auto 4.7 % (2-11); NRBC Pct Auto 0.2 /100WBC (0.0-0.2); Neutrophils Percent Auto 81.8 % (45-73); Platelet Count 220 X10*3/uL (160-400); Red Blood Count 4.15 X10*6/uL (4.60-5.80); White Blood Count 12.2 X10*3/uL (4.8-10.8)
[2022-09-25 05:29] LABS: Albumin Level 2.8 g/dL (3.5-5.0); Anion Gap 13 (12-20); Blood Urea Nitrogen 17 mg/dL (9-16); Calcium 7.5 mg/dL (8.4-10.2); Carbon Dioxide 34 mmol/L (22-29); Chloride 105 mmol/L (96-108); Creatinine Clr Calc Pharmacy 87.8; Estimated Glomerular Filt Rate > 60; Glucose Random 135 mg/dL (60-115); Magnesium 1.6 mg/dL (1.6-2.6); Phosphorus 3.4 mg/dL (2.7-4.5); Potassium 3.7 mmol/L (3.3-5.1); Sodium 148 mmol/L (135-145)
[2022-09-25] MEDS: Albumin Human 25 % 100 ML IV (05:59)
[2022-09-25] MEDS: Magnesium Sulfate/D5W 1 GM/100 ML PIGGYBACK IV (05:59)
[2022-09-25] MEDS: Dextrose 5 % 500 ML 125 ML IVCONT (06:27)
[2022-09-25] MEDS: Thiamine HCL 100 MG in 0.9 % Sodium Chloride 100 ML 202 MG IV (08:31)
[2022-09-25] MEDS: 0.9 % Sodium Chloride Flush 3 ML SYRINGE IVFLUSH ×6 (08:39→15:01)
--- NOTE | 2022-09-25 10:20 | MHC.CLN ---
F/U EXTUBATED NPO PENDING SWALLOW EVAL. FOLLOW FOR DIET ADVANCEMENT AND INTAKE.
--- NOTE | 2022-09-25 10:21 | MHC.CLN ---
F/U EXTUBATED 09/24. NPO PENDING SWALLOW EVAL. SEE APPLIED COMPUTER SCIENCE PROFESSOR NOTES. FOLLOW FOR DIET ADVANCEMENT AND INTAKE.
--- NOTE | 2022-09-25 10:30 | MHC.SLORD ---
Speech Language Pathology Order Status: MEDICAL STAFF CREDENTIALING COORDINATOR checked in with RN on unit. Pt still not managing secretions, needing suctioning. No change in status. Pt not appropriate for bedside swallow evaluation at this time. MEDICAL STAFF CREDENTIALING COORDINATOR will continue to follow.
[2022-09-25 11:21] LABS: Glucose, Whole Blood 172 mg/dL (60-115)
[2022-09-25] MEDS: Insulin Lispro 100 UNIT/ML 3 ML VIAL SUBCUT (11:24)
[2022-09-25] MEDS: Enalaprilat Dihydrate 1.25 MG/ML VIAL 0.625 MG IVPUSH (11:24)
--- NOTE | 2022-09-25 12:47 | P.PNCC_ITS ---
Subjective Subjective Date of Service: 09/25/22 Interval History: 71-year-old male longstanding chronic alcoholic who developed delirium tremens and was on a phenobarbital protocol and was noted to be unresponsive requiring intubation at least initially for airway protection and was maintained intubated and sedated taken through the entire withdrawal. And he was comfortably extubated and he was noted the to have other metabolic issues not the least of which was due to his underlying cardiac illness which is a ischemic cardiomyopathy with left bundle branch block septal paradox ejection fraction about 25% no primary valve or pericardial disease and I just repeated his echo because since extubation very lethargic Jovi Powell respiration with pretty fair apneic periods and does not seem to be following directions and he did have a CT scan that noted some bilateral white matter emboli and in the face of atrial fibrillation and is cardiomyopathy raises the question of something embolic or could be low-flow superimposed on small vessel disease but 1 way of the other his responsiveness is very poor currently we cannot feed him because we can not do a swallow examination he is unable to cooperate His intake to output ratio was markedly positive and given his cardiomyopathy a nd the and the increasing his CVP from a [place] to 15 we diuresed him very successfully he had normal renal function and he had a a nice diuresis is CVP came back down below 11 but since extubation he does cough but does not see me clears the secretions from the airway so we help him with some suctioning mechanical pulmonary toilet and watching him he has got a small low-grade temperature but no distinct infiltrate on chest x-ray Critical Care Time (minutes): 45 Physical Exam Vital Signs: Vital Signs: Last Vital Signs Temp 99.7 F 09/25/22 12:00 Pulse 85 09/25/22 12:00 Resp 17 09/25/22 12:00 BP 151/78 H 09/25/22 12:00 Pulse Ox 97 09/25/22 12:00 O2 Del Method 09/25/22 12:00 O2 Flow Rate 2 09/25/22 12:00 FiO2 40 09/24/22 08:00 BMI result Body Mass Index 37.5 He is awake and when you call his name be turns towards to lock size but I can not hotel server is to whether not he is understanding instructions 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 Naresh-Powell respirations but no adventitious sounds Bedside cardiac exam with a markedly reduced ejection fraction probably less than 15% severe diffuse hypokinesis with septal paradox Abdomen soft with no organomegaly Objective Data Labs 09/25/22 04:45 09/25/22 04:45 Labs: Laboratory Results - last 24 hr 09/24/22 09/24/22 09/25/22 18:08 23:43 04:45 WBC 12.2 H RBC 4.15 L Hgb 10.6 L Hct 34.8 L MCV 83.9 MCH 25.5 L MCHC 30.5 L RDW 20.0 H Plt Count 220 MPV 10.8 Immature Gran % (Auto) 0.7 H Neut % (Auto) 81.8 H Lymph % (Auto) 10.6 L [place] % (Auto) 4.7 Eos % (Auto) 2.0 Baso % (Auto) 0.2 Lymph # (Auto) 1.3 [place] # (Auto) 0.6 Eos # (Auto) 0.2 Baso # (Auto) 0.0 Abs Immat Gran (auto) 0.09 H Absolute Neuts (auto) 10.0 H Absolute Nucleated RBC 0.020 H Nucleated RBC % (auto) 0.2 VBG pH VBG pCO2 VBG pO2 VBG HCO3 VBG O2 Saturation VBG Base Excess Sodium Potassium Chloride Carbon Dioxide Anion Gap BUN Creatinine Estim Creat Clear Calc Estimated GFR POC Glucose 142 H 138 H Random Glucose Calcium Phosphorus Magnesium Albumin 09/25/22 09/25/22 09/25/22 04:45 04:47 11:17 WBC RBC Hgb Hct MCV MCH MCHC RDW Plt Count MPV Immature Gran % (Auto) Neut % (Auto) Lymph % (Auto) [place] % (Auto) Eos % (Auto) Baso % (Auto) Lymph # (Auto) [place] # (Auto) Eos # (Auto) Baso # (Auto) Abs Immat Gran (auto) Absolute Neuts (auto) Absolute Nucleated RBC Nucleated RBC % (auto) VBG pH 7.49 H VBG pCO2 41 VBG pO2 68 VBG HCO3 32 H VBG O2 Saturation 91.0 VBG Base Excess 8.0 Sodium 148 H Potassium 3.7 Chloride 105 Carbon Dioxide 34 H Anion Gap 13 BUN 17 H Creatinine 0.98 Estim Creat Clear Calc 87.8 Estimated GFR > 60 POC Glucose 172 H Random Glucose 135 H Calcium 7.5 L Phosphorus 3.4 Magnesium 1.6 Albumin 2.8 L Microbiology Microbiology Results: Microbiology 09/21/22 04:00 Sputum - Suctioned Gram Stain - Final 09/21/22 04:00 Sputum - Suctioned Sputum Culture - Final No growth. 09/16/22 14:56 Blood - Venous Blood Culture - Final No growth after 5 days. 09/16/22 14:56 Blood - Venous Blood Culture - Final No growth after 5 days. Progress Note: A&P Assessment and plan (1) Acute hypernatremia: Status: Acute (2) Ischemic congestive cardiomyopathy: Status: Acute (3) Dry skin dermatitis: Status: Acute (4) Encephalopathy: Status: Acute (5) Alcoholism: Status: Acute (6) Acute CVA (cerebrovascular accident): Status: Acute (7) Acute encephalopathy: Status: Acute (8) Acute kidney injury: Status: Acute (9) Atrial fibrillation with rapid ventricular response: Status: Acute (10) Acute dyspnea: Status: Acute (11) Acute hyperglycemia: Status: Acute (12) Chronic systolic CHF (congestive heart failure): Status: Acute (13) Atrial fibrillation: Status: Acute (14) Delirium due to another medical condition: Status: Acute (15) Delirium tremens: Status: Acute (16) DKA (diabetic ketoacidosis): Status: Acute (17) Acute hyperglycemia: Status: Acute Plan So for his sodium of 148 and not having and OG tube in place I gave him 500 cc of D5W and periodically will follow his ammonia level given his longstanding alcoholism and seeing features of of low-flow in 0 from the no from very advanced myocardial failure I chose to initiate vaso tech q.6 hourly at 0.625 mg given his blood pressure now of 140 systolic at that level he probably has increased peripheral resistance Blood pressure permitting will titrate up to no more than 2.5 mg a as a single dose watching the central venous pressure and his blood pressure we do not want to drop that certainly not below 120 systolic gross at that point of might indicate that we have over dilated and once this is restored and Deeming his ammonia level to be normal in his sodium to be normal if he does recover his mental status it is might behoove us to just gently sedated get an MRI get a true extent of the amount of volume of brain tissue compromised by infarct Quality Stroke Does the patient have a stroke diagnosis?: No VTE Prior VTE?: No VTE Risk Level:: Medical - moderate - high VTE Device Contraindication: Treatment Not Indicated VTE Drug Contraindication: N/A - Med Ordered
--- NOTE | 2022-09-25 15:24 | MHC.CM.PN ---
Pt extubated and continuing care in ICU: ? of MRI to rule out brain injury. STR referrals expanded in the high likelihood pt requires placement. CM to follow.
[2022-09-25] MEDS: Enalaprilat Dihydrate 1.25 MG/ML VIAL IVPUSH (17:12)
[2022-09-25 18:13] LABS: Glucose, Whole Blood 128 mg/dL (60-115)
[2022-09-25 21:04] LABS: Anion Gap 13 (12-20); Blood Urea Nitrogen 16 mg/dL (9-16); Calcium 7.7 mg/dL (8.4-10.2); Carbon Dioxide 33 mmol/L (22-29); Chloride 105 mmol/L (96-108); Creatinine Clr Calc Pharmacy 97.6; Estimated Glomerular Filt Rate > 60; Glucose Random 141 mg/dL (60-115); Potassium 3.7 mmol/L (3.3-5.1); Sodium 147 mmol/L (135-145)
[2022-09-25] MEDS: Enalaprilat Dihydrate 1.25 MG/ML VIAL 2.5 MG IVPUSH (23:46)
[2022-09-26] VITALS (25 sets, daily range): BP systolic 135–205; BP diastolic 67–110; PULSE 22–123; RESP 14–22; TEMP 37.7–38.2; O2SAT 92–100; BMI 36.5
[2022-09-26 00:04] LABS: Glucose, Whole Blood 109 mg/dL (60-115)
[2022-09-26] MEDS: Enoxaparin Sodium 80 MG/0.8 ML SYRINGE SUBCUT ×2 (02:03→14:29)
[2022-09-26 04:58] LABS: VBG Base Excess 6.7 mmol/L; VBG HCO3 31 mmol/L (22-26); VBG pCO2 42 mmHg; VBG pH 7.47 (7.32-7.43); VBG pO2 44 mmHg
[2022-09-26 05:27] LABS: MANUAL DIFF FLAG NO
[2022-09-26 05:30] LABS: Basophils Percent Auto 0.2 % (0-2); Eosinophils Absolute Auto 0.2 X10*3/uL (0.0-0.4); Eosinophils Percent Auto 1.1 % (0-4); Hematocrit 36.2 % (42.0-52.0); Imm Gran Abs Auto 0.11 X10*3/uL (0.00-0.03); Imm Gran Pct Auto 0.7 % (0.0-0.4); Lymphocytes Absolute Auto 1.2 X10*3/uL (1.2-4.9); Lymphocytes Percent Auto 7.8 % (20-40); Mean Corpuscular HGB Conc 30.4 g/dl (31.0-36.0); Mean Corpuscular Hemoglobin 25.7 pg (27.0-33.0); Mean Corpuscular Volume 84.6 fL (80.0-98.0); Mean Platelet Volume 11.3 fL (9.4-12.4); Monocytes Absolute Auto 0.8 X10*3/uL (0.1-1.2); Monocytes Percent Auto 5.4 % (2-11); NRBC Pct Auto 0.2 /100WBC (0.0-0.2); Neutrophils Absolute Auto 12.5 x10*3/uL (2.0-8.3); Neutrophils Percent Auto 84.8 % (45-73); Platelet Count 216 X10*3/uL (160-400); Red Blood Count 4.28 X10*6/uL (4.60-5.80); Red Cell Distribution Width 19.9 % (11.0-16.0); White Blood Count 14.7 X10*3/uL (4.8-10.8)
[2022-09-26 05:49] LABS: Albumin Level 3.1 g/dL (3.5-5.0); Anion Gap 16 (12-20); Blood Urea Nitrogen 17 mg/dL (9-16); Calcium 8.3 mg/dL (8.4-10.2); Carbon Dioxide 33 mmol/L (22-29); Chloride 105 mmol/L (96-108); Creatinine Clr Calc Pharmacy 96.2; Estimated Glomerular Filt Rate > 60; Glucose Random 135 mg/dL (60-115); Magnesium 1.7 mg/dL (1.6-2.6); Phosphorus 2.8 mg/dL (2.7-4.5); Potassium 3.6 mmol/L (3.3-5.1); Sodium 150 mmol/L (135-145)
[2022-09-26] MEDS: Enalaprilat Dihydrate 1.25 MG/ML VIAL 2.5 MG IVPUSH ×4 (05:56→23:35)
[2022-09-26 06:03] LABS: Venous Blood Gas Refer to POC result
--- NOTE | 2022-09-26 06:21 | PC.NURSE ---
CARE ASSUMED 23:15...AWAKE..TRACKS SPEAKER...NON-VERBAL...OCCASIONALLY MUMBLES INCOHERANTLY...MOVES ARMS BUT NOT TO COMMAND..O2 2 L/M..SAO2 93-97% WITH O2 2 L/M VIA CANNULA..LOOSE COUGH...ATRIAL FIB LBBB CONTROLLED HR....SBP 170'S-180'S AT HS...VASOTEC 2.5 MG IV Q6H STARTED ( DOSAGE PREVIOUSLY INCREASED BY ICU DIE INSPECTOR)....SBP 130-150 OVERNIGHT...CVP 18-20...ACOSTA 30-40 CC/HR....NO LASIX THIS AM PER DIE INSPECTOR D/T Na 150...UNABLE TO TAKE PO INTAKE..NPO AT PRESENT
[2022-09-26] MEDS: Dextrose 5 % 1,000 ML 125 ML IVCONT ×2 (08:05→16:33)
[2022-09-26] MEDS: 0.9 % Sodium Chloride Flush 3 ML SYRINGE IVFLUSH ×2 (08:30→16:34)
--- NOTE | 2022-09-26 09:21 | PM.CCPN ---
Subjective Subjective Date of Service: 09/26/22 Interval History: 71-year-old male with persistent atrial fibrillation and controlled rate left bundle branch block diffuse cardiomyopathy with severe reduction in systolic reserve but given his level of hypertension he still does have some reserve so we placed him on IV Vasotec 2.5 mg every 6 hours and he has preserved renal function but with an elevated central venous pressure of about 17-18 still indicating severe biventricular dysfunction and he has a considerable reservoir of 3rd space fluid with his anasarca he is somewhat more awake and he was definitely responsive to his daughter but still does not talking grunts but he certainly understands enough to nod yes or no in response to questions but he could not negotiate ice chips it just laid in the back of his throat he could not initiate a swallow he had to be suctioned Critical Care Time (minutes): 45 Physical Exam Vital Signs: Vital Signs: Last Vital Signs Temp 100.2 F 09/26/22 08:00 Pulse 100 09/26/22 09:00 Resp 15 09/26/22 09:00 BP 138/90 H 09/26/22 09:00 Pulse Ox 100 09/26/22 09:00 O2 Del Method 09/26/22 09:00 O2 Flow Rate 2 09/26/22 09:00 FiO2 40 09/24/22 08:00 BMI result Body Mass Index 36.5 On awake and answering questions so we do have some cognitive function but he still not able to truly communicate is not able to swallow and I think at this point we need to consider an NG tube with feedings Bedside echo again confirms about a 15% ejection fraction with severe diffuse hypokinesis and septal paradox Abdomen soft no organomegaly Lungs with some coarse rales that you could hear bilaterally scattered and represents upper airway And significant diffuse anasarca Objective Data Labs 09/26/22 04:50 09/26/22 04:50 Labs: Laboratory Results - last 24 hr 09/25/22 09/25/22 09/25/22 11:17 18:06 20:30 WBC RBC Hgb Hct MCV MCH MCHC RDW Plt Count MPV Immature Gran % (Auto) Neut % (Auto) Lymph % (Auto) [place] % (Auto) Eos % (Auto) Baso % (Auto) Lymph # (Auto) [place] # (Auto) Eos # (Auto) Baso # (Auto) Abs Immat Gran (auto) Absolute Neuts (auto) Absolute Nucleated RBC Nucleated RBC % (auto) VBG pH VBG pCO2 VBG pO2 VBG HCO3 VBG O2 Saturation VBG Base Excess Sodium 147 H Potassium 3.7 Chloride 105 Carbon Dioxide 33 H Anion Gap 13 BUN 16 Creatinine 0.87 Estim Creat Clear Calc 97.6 Estimated GFR > 60 POC Glucose 172 H 128 H Random Glucose 141 H Calcium 7.7 L Phosphorus Magnesium Albumin 09/25/22 09/26/22 09/26/22 23:52 04:50 04:50 WBC 14.7 H RBC 4.28 L Hgb 11.0 L Hct 36.2 L MCV 84.6 MCH 25.7 L MCHC 30.4 L RDW 19.9 H Plt Count 216 MPV 11.3 Immature Gran % (Auto) 0.7 H Neut % (Auto) 84.8 H Lymph % (Auto) 7.8 L [place] % (Auto) 5.4 Eos % (Auto) 1.1 Baso % (Auto) 0.2 Lymph # (Auto) 1.2 [place] # (Auto) 0.8 Eos # (Auto) 0.2 Baso # (Auto) 0.0 Abs Immat Gran (auto) 0.11 H Absolute Neuts (auto) 12.5 H Absolute Nucleated RBC 0.030 H Nucleated RBC % (auto) 0.2 VBG pH VBG pCO2 VBG pO2 VBG HCO3 VBG O2 Saturation VBG Base Excess Sodium 150 H Potassium 3.6 Chloride 105 Carbon Dioxide 33 H Anion Gap 16 BUN 17 H Creatinine 0.87 Estim Creat Clear Calc 96.2 Estimated GFR > 60 POC Glucose 109 Random Glucose 135 H Calcium 8.3 L D Phosphorus 2.8 Magnesium 1.7 Albumin 3.1 L 09/26/22 04:50 WBC RBC Hgb Hct MCV MCH MCHC RDW Plt Count MPV Immature Gran % (Auto) Neut % (Auto) Lymph % (Auto) [place] % (Auto) Eos % (Auto) Baso % (Auto) Lymph # (Auto) [place] # (Auto) Eos # (Auto) Baso # (Auto) Abs Immat Gran (auto) Absolute Neuts (auto) Absolute Nucleated RBC Nucleated RBC % (auto) VBG pH 7.47 H VBG pCO2 42 VBG pO2 44 VBG HCO3 31 H VBG O2 Saturation 67.0 VBG Base Excess 6.7 Sodium Potassium Chloride Carbon Dioxide Anion Gap BUN Creatinine Estim Creat Clear Calc Estimated GFR POC Glucose Random Glucose Calcium Phosphorus Magnesium Albumin Microbiology Microbiology Results: Microbiology 09/21/22 04:00 Sputum - Suctioned Gram Stain - Final 09/21/22 04:00 Sputum - Suctioned Sputum Culture - Final No growth. 09/16/22 14:56 Blood - Venous Blood Culture - Final No growth after 5 days. 09/16/22 14:56 Blood - Venous Blood Culture - Final No growth after 5 days. Progress Note: A&P Assessment and plan (1) Acute hypernatremia: Status: Acute (2) Ischemic congestive cardiomyopathy: Status: Acute (3) Dry skin dermatitis: Status: Acute (4) Encephalopathy: Status: Acute (5) Alcoholism: Status: Acute (6) Acute CVA (cerebrovascular accident): Status: Acute (7) Acute encephalopathy: Status: Acute (8) Acute kidney injury: Status: Acute (9) Atrial fibrillation with rapid ventricular response: Status: Acute (10) Acute dyspnea: Status: Acute (11) Acute hyperglycemia: Status: Acute (12) Chronic systolic CHF (congestive heart failure): Status: Acute (13) Atrial fibrillation: Status: Acute (14) Delirium due to another medical condition: Status: Acute (15) Delirium tremens: Status: Acute (16) DKA (diabetic ketoacidosis): Status: Acute (17) Acute hyperglycemia: Status: Acute Plan Plan is for continuous Lasix drip at 5 milligrams/hour but with 1 L of plain D5W for his hypernatremia which is at 01:50 right now Quality Stroke Does the patient have a stroke diagnosis?: No VTE Prior VTE?: No VTE Risk Level:: Medical - moderate - high VTE Device Contraindication: Treatment Not Indicated VTE Drug Contraindication: N/A - Med Ordered
[2022-09-26] MEDS: Thiamine HCL 100 MG in 0.9 % Sodium Chloride 100 ML 202 MG IV (09:34)
[2022-09-26] MEDS: Nystatin Powder 15 GM BOTTLE 1 APPL TOPICAL ×2 (09:35→21:37)
[2022-09-26 09:44] LABS: Ammonia 34 umol/L (13-55)
[2022-09-26] MEDS: Furosemide 200 MG in 0.9 % Sodium Chloride 80 ML IVCONT (10:11)
[2022-09-26] MEDS: Digoxin 0.5 MG/2 ML AMPUL 0.25 MG IVPUSH (11:41)
[2022-09-26 12:36] LABS: Glucose, Whole Blood 168 mg/dL (60-115)
[2022-09-26 18:09] LABS: Glucose, Whole Blood 208 mg/dL (60-115)
[2022-09-26] MEDS: Insulin Lispro 100 UNIT/ML 3 ML VIAL SUBCUT ×2 (18:17→23:42)
[2022-09-26 20:33] LABS: Anion Gap 12 (12-20); Blood Urea Nitrogen 16 mg/dL (9-16); Calcium 7.8 mg/dL (8.4-10.2); Carbon Dioxide 34 mmol/L (22-29); Chloride 103 mmol/L (96-108); Estimated Glomerular Filt Rate > 60; Glucose Random 209 mg/dL (60-115); Potassium 3.2 mmol/L (3.3-5.1); Sodium 146 mmol/L (135-145)
[2022-09-26] MEDS: Potassium Chloride/H20 40 MEQ/100 ML PIGGYBACK 50 MEQ IV (21:44)
--- NOTE | 2022-09-26 22:37 | PC.NURSE ---
SWALLOW EVALUATION PREFORMED BY RN WITH MD BESIDE. PATIENT FAILED BEDSIDE SWALLOW EVALUATION. UNABLE TO COMPLETE ANY PART OF EVALUATION. KEOFEED NG TUBE PLACED BY MD. PATIENT INFORMED BY IMAGING ENGINEER PRIOR TO PLACEMENT ABOUT PROCEDURE. PATIENT IMMEDIATELY RIPPED OUT TUBE AFTER PLACEMENT.
[2022-09-26 23:44] LABS: Glucose, Whole Blood 202 mg/dL (60-115)
[2022-09-27] VITALS (24 sets, daily range): BP systolic 135–175; BP diastolic 72–100; PULSE 20–96; RESP 12–24; TEMP 37.1–37.9; O2SAT 93–100; BMI 35.5
--- NOTE | 2022-09-27 | ECG_ITS ---
Test Reason : cp Blood Pressure : / mmHG Vent. Rate : 078 BPM Atrial Rate : 000 BPM P-R Int : 000 ms QRS Dur : 192 ms QT Int : 450 ms P-R-T Axes : 000 -33 145 degrees QTc Int : 513 ms Atrial fibrillation with premature ventricular or aberrantly conducted complexes Left axis deviation Left bundle branch block Abnormal ECG When compared with ECG of 27-SEP-2022 09:38, QRS duration has increased T wave inversion less evident in Lateral leads Referred By: Virginie Sheth Electronically Signed By:Soto Luz
--- NOTE | 2022-09-27 | ECG_ITS ---
Test Reason : QRS change Blood Pressure : / mmHG Vent. Rate : 077 BPM Atrial Rate : 079 BPM P-R Int : 000 ms QRS Dur : 152 ms QT Int : 454 ms P-R-T Axes : 000 003 192 degrees QTc Int : 513 ms Atrial fibrillation Left bundle branch block Abnormal ECG When compared with ECG of 21-SEP-2022 06:08, No significant changes seen Referred By: Yohana Fried Electronically Signed By:JUAN DIEGO RICHMOND
[2022-09-27] MEDS: Enoxaparin Sodium 80 MG/0.8 ML SYRINGE SUBCUT ×2 (01:50→11:14)
[2022-09-27 04:51] LABS: VBG Base Excess 11.2 mmol/L; VBG HCO3 35 mmol/L (22-26); VBG pCO2 46 mmHg; VBG pH 7.49 (7.32-7.43); VBG pO2 49 mmHg
[2022-09-27 05:14] LABS: Basophils Percent Auto 0.3 % (0-2); Eosinophils Absolute Auto 0.3 X10*3/uL (0.0-0.4); Eosinophils Percent Auto 2.2 % (0-4); Hematocrit 35.2 % (42.0-52.0); Hemoglobin 10.9 g/dl (14.0-18.0); Imm Gran Abs Auto 0.11 X10*3/uL (0.00-0.03); Imm Gran Pct Auto 0.8 % (0.0-0.4); Lymphocytes Absolute Auto 1.2 X10*3/uL (1.2-4.9); Lymphocytes Percent Auto 9.3 % (20-40); MANUAL DIFF FLAG NO; Mean Corpuscular Hemoglobin 26.4 pg (27.0-33.0); Mean Corpuscular Volume 85.2 fL (80.0-98.0); Mean Platelet Volume 11.6 fL (9.4-12.4); Monocytes Absolute Auto 0.7 X10*3/uL (0.1-1.2); Monocytes Percent Auto 5.3 % (2-11); NRBC Pct Auto 0.2 /100WBC (0.0-0.2); Neutrophils Absolute Auto 10.7 x10*3/uL (2.0-8.3); Neutrophils Percent Auto 82.1 % (45-73); Platelet Count 219 X10*3/uL (160-400); Red Blood Count 4.13 X10*6/uL (4.60-5.80); Red Cell Distribution Width 19.5 % (11.0-16.0); White Blood Count 13.1 X10*3/uL (4.8-10.8)
[2022-09-27 05:18] LABS: Glucose, Whole Blood 177 mg/dL (60-115)
[2022-09-27] MEDS: Enalaprilat Dihydrate 1.25 MG/ML VIAL 2.5 MG IVPUSH ×4 (05:25→23:17)
[2022-09-27] MEDS: Insulin Lispro 100 UNIT/ML 3 ML VIAL SUBCUT (05:25)
[2022-09-27 05:40] LABS: Albumin Level 2.9 g/dL (3.5-5.0); Anion Gap 14 (12-20); Blood Urea Nitrogen 15 mg/dL (9-16); Calcium 7.8 mg/dL (8.4-10.2); Carbon Dioxide 35 mmol/L (22-29); Chloride 100 mmol/L (96-108); Creatinine Clr Calc Pharmacy 91.7; Estimated Glomerular Filt Rate > 60; Glucose Random 185 mg/dL (60-115); Magnesium 1.4 mg/dL (1.6-2.6); Phosphorus 2.2 mg/dL (2.7-4.5); Sodium 146 mmol/L (135-145)
[2022-09-27] MEDS: Magnesium Sulfate/H2O 2 GM/50 ML PIGGYBACK IV (06:24)
[2022-09-27] MEDS: Potassium Phosphate/NS 15 MMOL/250 ML PLAST..BAG 62.5 MMOL IV ×2 (06:25→10:43)
[2022-09-27 06:27] LABS: Venous Blood Gas Refer to POC result
[2022-09-27] MEDS: 0.9 % Sodium Chloride Flush 3 ML SYRINGE IVFLUSH ×3 (07:32→23:15)
[2022-09-27] MEDS: Nystatin Powder 15 GM BOTTLE 1 APPL TOPICAL ×2 (07:32→22:13)
[2022-09-27] MEDS: Thiamine HCL 100 MG in 0.9 % Sodium Chloride 100 ML 202 MG IV (07:32)
--- NOTE | 2022-09-27 09:32 | PM.CCPN ---
Subjective Subjective Date of Service: 09/27/22 Interval History: 71-year-old chronic alcoholic presented with of course a toxic encephalopathy agitated delirium tremens will became unresponsive on the phenobarb protocol when mixed with Zyprexa requiring intubation and we kept him intubated through the withdrawal. And he did have islam of cognitive function but still is not verbally communicating but he seems to understand most especially when the daughter is there so he can follow some commands He has chronic persistent atrial fibrillation with controlled rate with an underlying left bundle branch block and a congestive cardiomyopathy probably ischemic in nature with septal paradox and severe diffuse hypokinesis otherwise ejection fraction now is probably easily less than 20% Also noted on CT scan at the time of altered mental status wore multiple bilateral certainly recent acute infarcts but mostly white matter involvement so it is very in pure finding we can not determine if this might be embolic but because there was no large vessel involvement could might just simply represent small-vessel disease and low-flow At 1 time post extubation he had very high central venous pressures initially starting at about 12-13 and going up as high as 15 and started on a Lasix drip and is now down to his CVP of 10 and clearly as some of the proximal airway coarse rales that he had had had disappeared and it appears as though is respiratory effort is less and he has less of a Naresh-Powell respiratory pattern at this point but he is unable to swallow he did know what to do with the ice chip in his mouth and requires frequent suctioning and toileting I placed an OG feeding tube yesterday but the patient pulled out so I will not force this on and he seems uncomfortable with it and we hope that he restores cognitive function and swallowing capability at the very least or consideration for a PEG feeding tube before placement in a outpatient rehab/nursing facility which we explained to the daughter will be in necessity Critical Care Time (minutes): 45 Physical Exam Vital Signs: Vital Signs: Last Vital Signs Temp 99.5 F 09/27/22 09:00 Pulse 85 09/27/22 09:00 Resp 15 09/27/22 09:00 BP 149/100 H 09/27/22 09:00 Pulse Ox 100 09/27/22 09:00 O2 Del Method 09/27/22 09:00 O2 Flow Rate 2 09/27/22 09:00 FiO2 40 09/24/22 08:00 BMI result Body Mass Index 35.5 Awake responds to his name and he nods yes when I ask him if he is feeling better Good urinary volume with negative intake and output ratio in drop in CVP to 10 and he continues on the vaso tech at 2.5 mg q.6 hourly and the fact that he still has blood pressure is ranging between 145 and 165 systolic tells me that he is still may have more reserve could see clearly still has elevated peripheral vascular resistance which we might be able to titrate more more efficient as vaso dilator therapy possibly with a combined alpha beta yoel Again bedside echo showing mild concentric left ventricular hypertrophy with severe due use hypokinesis and septal paradox no primary valve or pericardial disease Objective Data Labs 09/27/22 04:43 09/27/22 04:43 Labs: Laboratory Results - last 24 hr 09/26/22 09/26/22 09/26/22 09:27 12:29 18:02 WBC RBC Hgb Hct MCV MCH MCHC RDW Plt Count MPV Immature Gran % (Auto) Neut % (Auto) Lymph % (Auto) [place] % (Auto) Eos % (Auto) Baso % (Auto) Lymph # (Auto) [place] # (Auto) Eos # (Auto) Baso # (Auto) Abs Immat Gran (auto) Absolute Neuts (auto) Absolute Nucleated RBC Nucleated RBC % (auto) VBG pH VBG pCO2 VBG pO2 VBG HCO3 VBG O2 Saturation VBG Base Excess Sodium Potassium Chloride Carbon Dioxide Anion Gap BUN Creatinine Estim Creat Clear Calc Estimated GFR POC Glucose 168 H 208 H Random Glucose Calcium Phosphorus Magnesium Ammonia 34 Albumin 09/26/22 09/26/22 09/27/22 20:03 23:40 04:42 WBC RBC Hgb Hct MCV MCH MCHC RDW Plt Count MPV Immature Gran % (Auto) Neut % (Auto) Lymph % (Auto) [place] % (Auto) Eos % (Auto) Baso % (Auto) Lymph # (Auto) [place] # (Auto) Eos # (Auto) Baso # (Auto) Abs Immat Gran (auto) Absolute Neuts (auto) Absolute Nucleated RBC Nucleated RBC % (auto) VBG pH 7.49 H VBG pCO2 46 VBG pO2 49 VBG HCO3 35 H VBG O2 Saturation 75.0 VBG Base Excess 11.2 Sodium 146 H Potassium 3.2 L Chloride 103 Carbon Dioxide 34 H Anion Gap 12 BUN 16 Creatinine 0.90 Estim Creat Clear Calc 93.0 Estimated GFR > 60 POC Glucose 202 H Random Glucose 209 H Calcium 7.8 L D Phosphorus Magnesium Ammonia Albumin 09/27/22 09/27/22 09/27/22 04:43 04:43 05:13 WBC 13.1 H RBC 4.13 L Hgb 10.9 L Hct 35.2 L MCV 85.2 MCH 26.4 L MCHC 31.0 RDW 19.5 H Plt Count 219 MPV 11.6 Immature Gran % (Auto) 0.8 H Neut % (Auto) 82.1 H Lymph % (Auto) 9.3 L [place] % (Auto) 5.3 Eos % (Auto) 2.2 Baso % (Auto) 0.3 Lymph # (Auto) 1.2 [place] # (Auto) 0.7 Eos # (Auto) 0.3 Baso # (Auto) 0.0 Abs Immat Gran (auto) 0.11 H Absolute Neuts (auto) 10.7 H Absolute Nucleated RBC 0.020 H Nucleated RBC % (auto) 0.2 VBG pH VBG pCO2 VBG pO2 VBG HCO3 VBG O2 Saturation VBG Base Excess Sodium 146 H Potassium 3.0 L Chloride 100 Carbon Dioxide 35 H Anion Gap 14 BUN 15 Creatinine 0.90 Estim Creat Clear Calc 91.7 Estimated GFR > 60 POC Glucose 177 H Random Glucose 185 H Calcium 7.8 L Phosphorus 2.2 L Magnesium 1.4 L* Ammonia Albumin 2.9 L Microbiology Microbiology Results: Microbiology 09/21/22 04:00 Sputum - Suctioned Gram Stain - Final 09/21/22 04:00 Sputum - Suctioned Sputum Culture - Final No growth. 09/16/22 14:56 Blood - Venous Blood Culture - Final No growth after 5 days. 09/16/22 14:56 Blood - Venous Blood Culture - Final No growth after 5 days. Progress Note: A&P Assessment and plan (1) Acute hypernatremia: Status: Acute (2) Ischemic congestive cardiomyopathy: Status: Acute (3) Dry skin dermatitis: Status: Acute (4) Encephalopathy: Status: Acute (5) Alcoholism: Status: Acute (6) Acute CVA (cerebrovascular accident): Status: Acute (7) Acute encephalopathy: Status: Acute (8) Acute kidney injury: Status: Acute (9) Atrial fibrillation with rapid ventricular response: Status: Acute (10) Acute dyspnea: Status: Acute (11) Acute hyperglycemia: Status: Acute (12) Chronic systolic CHF (congestive heart failure): Status: Acute (13) Atrial fibrillation: Status: Acute (14) Delirium due to another medical condition: Status: Acute (15) Delirium tremens: Status: Acute (16) DKA (diabetic ketoacidosis): Status: Acute (17) Acute hyperglycemia: Status: Acute Plan With heart rate control between 75 and 80 is more and more breaking through with and somewhat narrow complex obviously not the left bundle branch block and if this has a right bundle appearance to it that he has got alternating bundle branch block makes me worry about threatening his it His bundle This in itself might represent an indication for pacing we have to see Quality Stroke Does the patient have a stroke diagnosis?: No VTE Prior VTE?: No VTE Risk Level:: Medical - moderate - high VTE Device Contraindication: Treatment Not Indicated VTE Drug Contraindication: N/A - Med Ordered
--- NOTE | 2022-09-27 11:11 | MHC.CM.PN ---
Patient remains in ICU. Extubated 09/24. Will need physical therapy for home safety when medically stable. Continue to monitor for d/c needs.
[2022-09-27 11:16] LABS: Glucose, Whole Blood 111 mg/dL (60-115)
[2022-09-27 17:15] LABS: Glucose, Whole Blood 109 mg/dL (60-115)
--- NOTE | 2022-09-27 21:14 | PC.NURSE ---
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 Some cardiac rhythm changes noted on the monitor during this episodes , EKG was done. Pt not able to communicate with nursing staff . Pt reached out to the heller cath few times. Urinary bladder was scanned and there is no residuals. Urine output has been between 40 and 35 ml per hr ayden color urine
[2022-09-27 23:27] LABS: Glucose, Whole Blood 124 mg/dL (60-115)
[2022-09-28] VITALS (25 sets, daily range): BP systolic 145–174; BP diastolic 70–97; PULSE 71–140; RESP 14–36; TEMP 37.4–39; O2SAT 91–100; BMI 35.1
--- NOTE | 2022-09-28 | ECG_ITS ---
Test Reason : cp Blood Pressure : / mmHG Vent. Rate : 129 BPM Atrial Rate : 000 BPM P-R Int : 000 ms QRS Dur : 174 ms QT Int : 384 ms P-R-T Axes : 000 -53 122 degrees QTc Int : 562 ms Atrial fibrillation with rapid ventricular response Left axis deviation Left bundle branch block Abnormal ECG When compared with ECG of 27-SEP-2022 20:28, Vent. rate has increased BY 51 BPM Referred By: May Bruno Electronically Signed By:Soto Luz
[2022-09-28] MEDS: Enoxaparin Sodium 80 MG/0.8 ML SYRINGE SUBCUT ×2 (02:12→12:28)
[2022-09-28 04:56] LABS: VBG Base Excess 8.8 mmol/L; VBG HCO3 32 mmol/L (22-26); VBG pCO2 39 mmHg; VBG pH 7.52 (7.32-7.43); VBG pO2 40 mmHg
[2022-09-28 05:03] LABS: MANUAL DIFF FLAG NO; Venous Blood Gas Refer to POC result
[2022-09-28 05:12] LABS: Basophils Absolute Auto 0.1 X10*3/uL (0.0-0.2); Basophils Percent Auto 0.5 % (0-2); Eosinophils Absolute Auto 0.2 X10*3/uL (0.0-0.4); Eosinophils Percent Auto 2.1 % (0-4); Hematocrit 35.9 % (42.0-52.0); Hemoglobin 11.3 g/dl (14.0-18.0); Imm Gran Abs Auto 0.07 X10*3/uL (0.00-0.03); Imm Gran Pct Auto 0.6 % (0.0-0.4); Lymphocytes Absolute Auto 1.4 X10*3/uL (1.2-4.9); Lymphocytes Percent Auto 12.4 % (20-40); Mean Corpuscular HGB Conc 31.5 g/dl (31.0-36.0); Mean Corpuscular Hemoglobin 26.2 pg (27.0-33.0); Mean Corpuscular Volume 83.1 fL (80.0-98.0); Mean Platelet Volume 11.1 fL (9.4-12.4); Monocytes Absolute Auto 0.7 X10*3/uL (0.1-1.2); Monocytes Percent Auto 5.8 % (2-11); NRBC Pct Auto 0.2 /100WBC (0.0-0.2); Neutrophils Absolute Auto 8.8 x10*3/uL (2.0-8.3); Neutrophils Percent Auto 78.6 % (45-73); Platelet Count 254 X10*3/uL (160-400); Red Blood Count 4.32 X10*6/uL (4.60-5.80); Red Cell Distribution Width 19.7 % (11.0-16.0); White Blood Count 11.2 X10*3/uL (4.8-10.8)
[2022-09-28 05:24] LABS: Albumin Level 2.8 g/dL (3.5-5.0); Anion Gap 18 (12-20); Blood Urea Nitrogen 13 mg/dL (9-16); Calcium 7.8 mg/dL (8.4-10.2); Carbon Dioxide 33 mmol/L (22-29); Chloride 102 mmol/L (96-108); Creatinine Clr Calc Pharmacy 93.3; Estimated Glomerular Filt Rate > 60; Glucose Random 131 mg/dL (60-115); Magnesium 1.4 mg/dL (1.6-2.6); Potassium 2.9 mmol/L (3.3-5.1); Sodium 150 mmol/L (135-145)
[2022-09-28] MEDS: Enalaprilat Dihydrate 1.25 MG/ML VIAL 2.5 MG IVPUSH (05:46)
[2022-09-28] MEDS: Magnesium Sulfate/H2O 2 GM/50 ML PIGGYBACK IV (05:47)
[2022-09-28] MEDS: Potassium Chloride/H20 40 MEQ/100 ML PIGGYBACK 50 MEQ IV ×2 (05:49→19:24)
--- NOTE | 2022-09-28 07:00 | CA_ITS ---
Transthoracic Echocardiogram Patient (Last, First, Middle): Abimael Georges A Gender: Male Date of : 1950 Age: 71 Procedure Date: 09/28/2022 Procedure Type: Transthoracic Echocardiogram Location: ICU Height: 177.8 cm Weight: 110.68 kg BSA: 2.27 m2 Heart Rate: bpm BP: 167 / 87 mmHg Security Researcher: TO Referring MD: Ed Meredith MD Symptoms: ? changes in LVEF Study Quality: Fair/Contrast Findings Procedure Information Contrast agent, definity, is being given per protocol without apparent complications. Left Ventricle Mildly increased left ventricular cavity size. There is moderately increased left ventricular wall thickness. The left ventricular systolic function is severely decreased. The visually estimated ejection fraction is between 15 20%. There is severe global hypokinesis. Diastolic function is indeterminate on the basis of available data. Venous The inferior vena cava is dilated and does not collapse with inspiration. Pericardium/Pleural There is no evidence of pericardial effusion. Measurements 2D Linear Measurements IVSd: 1.36 0.6-0.9/0.6-1.0 cm LVIDd: 5.52 3.9-5.3/4.2-5.9 cm LVIDd Index: 2.43 2.4-3.2/2.2-3.1 cm/m2 LVIDs: 4.34 2.0-3.6 cm LVPWd: 1.41 0.7-1.1 cm LV Mass: 417.59 67-162/88-224 g LV Mass Index: 183.96 43-95/49-115 g/m2 LVOT Diam: 2.20 3.0+(-)1.3 cm 2D Systolic Function EF 4C: 18.00 >55% EF 2C: 23.00 >55% EF BiP: 18.90 >55% LVOT LVOT Pk Riley: 0.85 LVOT Mn Riley: 0.50 LVOT VTI: 0.15 LVOT Pk Grad: 3.00 LVOT Mn Grad: 1.00 LVOT Diam: 2.20 LVOT Area: 3.80 Tricuspid Valve RA Press: 15.00 Updated in Other Vendor System with Status of Final Soto Luz MD electronically signed on 09/28/2022 3:43:44 PM with status of Final
[2022-09-28] MEDS: Dextrose 5 % 1,000 ML 125 ML IVCONT (07:45)
[2022-09-28] MEDS: Thiamine HCL 100 MG in 0.9 % Sodium Chloride 100 ML 202 MG IV (07:45)
[2022-09-28] MEDS: Albumin Human 25 % 100 ML IV ×4 (07:46→20:45)
[2022-09-28] MEDS: 0.9 % Sodium Chloride Flush 3 ML SYRINGE IVFLUSH ×3 (08:01→23:51)
[2022-09-28] MEDS: Furosemide 200 MG in 0.9 % Sodium Chloride 80 ML IVCONT (08:01)
[2022-09-28] MEDS: Nystatin Powder 15 GM BOTTLE 1 APPL TOPICAL ×2 (08:04→19:49)
[2022-09-28] MEDS: Potassium Chloride/H20 40 MEQ/100 ML PIGGYBACK 100 MEQ IV (09:01)
[2022-09-28] MEDS: Metoprolol Tartrate 5 MG in 0.9 % Sodium Chloride 50 ML 220 MG IV ×2 (09:02→14:18)
--- NOTE | 2022-09-28 10:57 | MHC.SL.SWA ---
Speech Pathologist Impression: Oropharyngeal dysphagia, risk of aspiration Risk of Aspiration Due to: Hx of Recent Extubation Dysphasia Diet Status: Continue NPO status Liquid Consistency and Strategies for Safe Swallow: Liquid Intake Recommendation: NPO Solid Food Consistency: Dietary Recommendations: NPO Additional Modifications to Solid Foods: Recommend continue NPO status at this time. Discussed with RN and MD on unit. Keep head of bed elevated at least 30 degrees, ensure daily oral care. RN OPERATING ROOM will continue to follow. Oral Medication Intake: NPO Please contact the pharmacy regarding appropriate crushable or liquid drug formulations that are available whenever modified delivery is recommended. Supervision While Eating and Drinking for Safe Swallow: PO with RN OPERATING ROOM Recommendation for Speech: Inpatient Speech Therapy Orthotic Fitter Clinican/Clinical Fellow: No Supervisory Statement: I have reviewed and agree with the student/clinical fellow's documentation: N/A Speech Language Pathologist: Alexandria Alberto M.A., CCC-RN OPERATING ROOM
--- NOTE | 2022-09-28 10:58 | MHC.CLN ---
F/U DISCUSSED WITH TEAM AT ROUNDS. EXTUBATED 09/24. JOVITA FEEDING TUBE INSERTED THIS WEEKEND AND PULLED OUT BY PATIENT. NPO SINCE 09/24. HAS NOT PASSED SWALLOW EVAL. SKIN WITH 2 NEW DTIs TO BUTTOCKS. CONTINUE TO FOLLOW FOR NUTRITION SUPPORT WITH TEAM.
--- NOTE | 2022-09-28 11:11 | P.PNCC_ITS ---
Subjective Subjective Date of Service: 09/28/22 Interval History: 71-year-old gentleman with underlying history of systolic heart failure left and a right-sided, diabetes mellitus, AFib, hypertension admitted on 3 long-time 23 no with alcohol abuse/alcohol withdrawal further complicated by acute embolic infarct with hemorrhagic conversion, acute hypercapnic respiratory failure requiring intubation and ventilatory support. Patient respiratory status improved with diuresis and he was extubated on 09/24/2022. However, he remains significantly encephalopathic and continues to fail his swallow evaluation and his hospital course further complicated by recurrent hypernatremia and ongoing congestive heart failure. No events overnight. Critical Care Time (minutes): 45 Physical Exam Vital Signs: Vital Signs: Last Vital Signs Temp 99.7 F 09/28/22 11:00 Pulse 82 09/28/22 11:00 Resp 14 09/28/22 11:00 BP 168/78 H 09/28/22 11:00 Pulse Ox 98 09/28/22 11:00 O2 Del Method 09/28/22 11:00 O2 Flow Rate 2 09/27/22 09:00 FiO2 40 09/24/22 08:00 BMI result Body Mass Index 35.1 Const: General: no acute distress, alert, awake and other (aphasic) Eyes: Sclerae: sclerae normal EOM: EOMs intact bilaterally Neck: Neck: Yes no lymphadenopathy, Yes trachea midline and Yes supple Resp: Effort & Inspection: normal respiratory effort Auscultation: crackles (Mild bilateral) Cardio: Rate: tachycardic Rhythm: regular rhythm Heart sounds: no gallops, no murmurs and no rubs GI: Palpation (GI): Soft to palpation and Other GI palpation findings present ( Nontender) Auscultation: normal bowel sounds Extrem: General: No clubbing, No cyanosis and Yes edema (2+ bilateral) Objective Data Labs 09/28/22 04:50 09/28/22 04:50 Labs: Laboratory Results - last 24 hr 09/27/22 09/27/22 09/27/22 11:12 17:02 23:23 WBC RBC Hgb Hct MCV MCH MCHC RDW Plt Count MPV Immature Gran % (Auto) Neut % (Auto) Lymph % (Auto) [place] % (Auto) Eos % (Auto) Baso % (Auto) Lymph # (Auto) [place] # (Auto) Eos # (Auto) Baso # (Auto) Abs Immat Gran (auto) Absolute Neuts (auto) Absolute Nucleated RBC Nucleated RBC % (auto) VBG pH VBG pCO2 VBG pO2 VBG HCO3 VBG O2 Saturation VBG Base Excess Sodium Potassium Chloride Carbon Dioxide Anion Gap BUN Creatinine Estim Creat Clear Calc Estimated GFR POC Glucose 111 109 124 H Random Glucose Calcium Phosphorus Magnesium Albumin 09/28/22 09/28/22 09/28/22 04:47 04:50 04:50 WBC 11.2 H RBC 4.32 L Hgb 11.3 L Hct 35.9 L MCV 83.1 MCH 26.2 L MCHC 31.5 RDW 19.7 H Plt Count 254 MPV 11.1 Immature Gran % (Auto) 0.6 H Neut % (Auto) 78.6 H Lymph % (Auto) 12.4 L [place] % (Auto) 5.8 Eos % (Auto) 2.1 Baso % (Auto) 0.5 Lymph # (Auto) 1.4 [place] # (Auto) 0.7 Eos # (Auto) 0.2 Baso # (Auto) 0.1 Abs Immat Gran (auto) 0.07 H Absolute Neuts (auto) 8.8 H Absolute Nucleated RBC 0.020 H Nucleated RBC % (auto) 0.2 VBG pH 7.52 H VBG pCO2 39 VBG pO2 40 VBG HCO3 32 H VBG O2 Saturation 61.0 VBG Base Excess 8.8 Sodium 150 H Potassium 2.9 L Chloride 102 Carbon Dioxide 33 H Anion Gap 18 BUN 13 Creatinine 0.88 Estim Creat Clear Calc 93.3 Estimated GFR > 60 POC Glucose Random Glucose 131 H Calcium 7.8 L Phosphorus 3.0 Magnesium 1.4 L* Albumin 2.8 L Microbiology Microbiology Results: Microbiology 09/21/22 04:00 Sputum - Suctioned Gram Stain - Final 09/21/22 04:00 Sputum - Suctioned Sputum Culture - Final No growth. 09/16/22 14:56 Blood - Venous Blood Culture - Final No growth after 5 days. 09/16/22 14:56 Blood - Venous Blood Culture - Final No growth after 5 days. Progress Note: A&P Assessment and plan (1) Acute on chronic clinical systolic heart failure: Status: Acute (2) Acute hypernatremia: Status: Acute (3) Encephalopathy: Status: Acute (4) Alcoholism: Status: Acute (5) Acute CVA (cerebrovascular accident): Status: Acute (6) Atrial fibrillation: Status: Acute (7) Diabetes: Status: Acute Plan Assessment: 71-year-old gentleman admitted with alcohol intoxication and acute embolic stroke complicated by hemorrhagic conversion, delirium tremens, acute respiratory failure, acute on chronic systolic congestive heart failure, residual encephalopathy, and dysphagia Plan: Neuro: Acute ischemic stroke with hemorrhagic conversion, now worried residual encephalopathy and persistent dysphagia. Family discussion about PEG placement ongoing. Cardiac: Acute on chronic biventricular systolic congestive heart failure. Continue with diuresis. Underlying AFib previously on anticoagulation, now held secondary to hemorrhagic conversion of ischemic stroke. Pulmonary: Acute hypercapnic respiratory failure secondary to acute stroke with possible aspiration, now resolved. Renal: No acute issues. Endo: No acute issues. Underlying diabetes mellitus. GI: No acute issues. ID: No acute issues. Heme/Onc: No acute issues. Psych: No acute issues. Miscellaneous: No acute issues. Prophylaxis: Pneumatic compression Diet: Nothing by mouth Critical care time spent: 45 minutes Quality Stroke Does the patient have a stroke diagnosis?: No VTE Prior VTE?: No VTE Risk Level:: Medical - moderate - high VTE Device Contraindication: Treatment Not Indicated VTE Drug Contraindication: N/A - Med Ordered
[2022-09-28 11:12] LABS: Glucose, Whole Blood 166 mg/dL (60-115)
[2022-09-28] MEDS: Insulin Lispro 100 UNIT/ML 3 ML VIAL SUBCUT ×2 (12:28→17:25)
--- NOTE | 2022-09-28 12:45 | MHC.CM.PN ---
Pt continues w/encephalopathy and failed swallow evals. Tube feed restarted: Family considering G tube placement for nutritional management - no decisions as of this note. SNF referrals made - CM following for eventual placement needs.
[2022-09-28 17:23] LABS: Glucose, Whole Blood 176 mg/dL (60-115)
[2022-09-28 18:56] LABS: Anion Gap 19 (12-20); Blood Urea Nitrogen 15 mg/dL (9-16); Calcium 8.2 mg/dL (8.4-10.2); Carbon Dioxide 32 mmol/L (22-29); Chloride 104 mmol/L (96-108); Creatinine Clr Calc Pharmacy 77.4; Estimated Glomerular Filt Rate > 60; Glucose Random 166 mg/dL (60-115); Potassium 3.4 mmol/L (3.3-5.1); Sodium 152 mmol/L (135-145)
[2022-09-28] MEDS: Metoprolol Tartrate 5 MG/5 ML VIAL IVPUSH (19:48)
[2022-09-28] MEDS: Acetaminophen 1,000 MG/100 ML PIGGYBACK 400 MG IV (21:15)
[2022-09-28 23:24] LABS: Magnesium 1.6 mg/dL (1.6-2.6); Phosphorus 3.4 mg/dL (2.7-4.5)
[2022-09-28 23:48] LABS: Glucose, Whole Blood 104 mg/dL (60-115)
[2022-09-28] MEDS: Magnesium Sulfate/D5W 1 GM/100 ML PIGGYBACK IV (23:49)
[2022-09-29] VITALS (37 sets, daily range): BP systolic 87–178; BP diastolic 54–91; PULSE 60–150; RESP 17–34; TEMP 32–38.7; O2SAT 96–100; BMI 34.7
[2022-09-29 01:52] LABS: ABG Base Excess -10.9 mmol/L; ABG HCO3 17 mmol/L (22-26); ABG pCO2 49 mmHg (32-45); ABG pH 7.15 (7.35-7.45); ABG pO2 267 mmHg (83-108)
[2022-09-29] MEDS: Sodium Bicarbonate 8.4% 50 MEQ/50 ML SYRINGE IVPUSH ×2 (01:58→02:15)
[2022-09-29] MEDS: propofoL 200 MG/20 ML VIAL 50 MG IVPUSH (01:59)
[2022-09-29] MEDS: propofoL 1,000 MG/100 ML VIAL 20 MG IVCONT ×6 (02:00→22:36)
[2022-09-29 02:18] LABS: ABG Refer to POC result
[2022-09-29] MEDS: Enoxaparin Sodium 80 MG/0.8 ML SYRINGE SUBCUT ×2 (02:25→12:19)
--- NOTE | 2022-09-29 02:35 | W.PM.CCHP ---
Procedures Date of Service Date of Service: 09/29/22 Intubation Intubation Comments: patient suddenly dropped heart rate to 30s, ABG show profound metabolic acidosis, and patient agonal breathing, required emergent intubation for airway protection. Patient intubated with 7.5 cuffed ET tube under glide scope guidance with visualization of vocal cords, without immediate complications. ET tube position verified with Chest XRAY. Consent for Procedure: Emergent-no informed consent obtained Time out performed: Yes Sedative: propofol Mg given: 50 Laryngoscope: fiber optic video scope ET tube size: 7.5 ET tube uncuffed: No Tube secured depth (cm): 25 Tube secured location: lips Tube placement confirmation: visualized tube passing through cords, equal breath sounds bilaterally, no breath sounds over epigastrium and confirmation by capnometry Patient tolerated procedure: well and no complications Intubation complications: none
[2022-09-29 02:38] LABS: MANUAL DIFF FLAG NO
[2022-09-29 02:41] LABS: Basophils Percent Auto 0.2 % (0-2); Eosinophils Percent Auto 0.1 % (0-4); Hematocrit 38.5 % (42.0-52.0); Hemoglobin 11.5 g/dl (14.0-18.0); Imm Gran Abs Auto 0.16 X10*3/uL (0.00-0.03); Imm Gran Pct Auto 1.2 % (0.0-0.4); Lymphocytes Absolute Auto 0.9 X10*3/uL (1.2-4.9); Lymphocytes Percent Auto 6.5 % (20-40); Mean Corpuscular HGB Conc 29.9 g/dl (31.0-36.0); Mean Corpuscular Hemoglobin 25.8 pg (27.0-33.0); Mean Corpuscular Volume 86.3 fL (80.0-98.0); Mean Platelet Volume 11.1 fL (9.4-12.4); Monocytes Absolute Auto 0.7 X10*3/uL (0.1-1.2); Monocytes Percent Auto 4.9 % (2-11); Neutrophils Absolute Auto 11.5 x10*3/uL (2.0-8.3); Neutrophils Percent Auto 87.1 % (45-73); Platelet Count 320 X10*3/uL (160-400); Red Blood Count 4.46 X10*6/uL (4.60-5.80); Red Cell Distribution Width 20.7 % (11.0-16.0); White Blood Count 13.2 X10*3/uL (4.8-10.8)
[2022-09-29 02:46] LABS: NRBC Pct Auto 1.1 /100WBC (0.0-0.2)
[2022-09-29 03:00] LABS: Anion Gap 35 (12-20); Blood Urea Nitrogen 21 mg/dL (9-16); Calcium 8.3 mg/dL (8.4-10.2); Carbon Dioxide 20 mmol/L (22-29); Chloride 105 mmol/L (96-108); Estimated Glomerular Filt Rate 42; Glucose Random 70 mg/dL (60-115); Magnesium 1.9 mg/dL (1.6-2.6); Phosphorus 6.5 mg/dL (2.7-4.5); Potassium 4.4 mmol/L (3.3-5.1); Sodium 156 mmol/L (135-145)
--- NOTE | 2022-09-29 03:11 | PC.NURSE ---
0000- Pt having worsening congestion, requiring deep suctioning with thick cream secretions. Cxr ordered and sputum culture sent. No new orders. 0150- Pt bradying to 30s, spO2 70s. NRB applied, [employer] at bedside. ABG ordered - pH 7.15. Pt intubated with 50 mg propofol. ET tube #7.5, 25 @ lip. BP 80s systolic, levophed started. HR stabilized 80-90s afib with bundle branch block. New orders for abd ct.
[2022-09-29 03:13] LABS: B Type Natriuretic Peptide 4253 pg/mL (<100)
[2022-09-29 03:19] LABS: Troponin-I High Sensitivity 103.2 ng/L (<3.5-35.0)
[2022-09-29 03:20] LABS: Lactic Acid 13.1 mmol/L (0.5-2.0)
[2022-09-29] MEDS: iohexoL 350 MG/ML 100 ML INFUS..BTL 85 ML IV (03:51)
[2022-09-29] MEDS: Albumin Human 25 % 100 ML 133.33 ML IV ×2 (04:20→05:13)
[2022-09-29 04:36] LABS: Reflex Lactate? Lactic Acid Added
[2022-09-29 04:38] LABS: Albumin Level 3.9 g/dL (3.5-5.0)
[2022-09-29 04:55] LABS: VBG Base Excess -0.7 mmol/L; VBG HCO3 22 mmol/L (22-26); VBG pCO2 30 mmHg; VBG pH 7.46 (7.32-7.43); VBG pO2 46 mmHg
[2022-09-29] MEDS: Pantoprazole Sodium 40 MG/10 ML VIAL IVPUSH (04:55)
[2022-09-29 04:57] LABS: Venous Blood Gas Refer to POC result
[2022-09-29] MEDS: Piperacillin Sodium/Tazobactam 4.5 GM in 0.9 % Sodium Chloride 100 ML IV (04:58)
[2022-09-29 05:05] LABS: Alanine Aminotransferase 31 U/L (0-40); Alkaline Phosphatase 322 U/L (39-117); Aspartate Amino Transferase 88 U/L (5-37); Bilirubin Direct 3.2 mg/dL (0.0-0.5); Bilirubin Total 4.7 mg/dL (0.0-1.0); Total Protein 6.8 g/dL (6.5-8.0)
--- NOTE | 2022-09-29 05:14 | PM.CCN ---
Critical Care Event Note Summary Date of Service: 09/29/22 Code activated: No Narrative: This case had a high probability of a clinically significant, sudden, or life threatening deterioration of this patient's condition which required my full and direct attention, intervention and personal management. Critical Care Time (minutes): 60 Comment: 71-year-old gentleman with underlying history of systolic heart failure left and a right-sided, diabetes mellitus, AFib, hypertension admitted on 09/16/22 with alcohol abuse/alcohol withdrawal further complicated by acute embolic infarct with hemorrhagic conversion, acute hypercapnic respiratory failure requiring intubation and ventilatory support.? Patient respiratory status improved with diuresis and he was extubated on 09/24/2022.? However, he remains significantly encephalopathic and continues to fail his swallow evaluation and his hospital course further complicated by recurrent hypernatremia and ongoing congestive heart failure. Tonight, patient HR dropped from 120s to 30s, ABGs 7.15/49/267/17, Patient with pulse, but agonal breathing required emergent intubation. Throughout the night urine output decreased significantly,? Lasix drip was held prior to drop in HR. Post intubation laboratory, showed lactic acid of 13,? abdomen was soft, non distended.? STAT ABD CT with contrast *? Patchy hypoenhancement in the lateral interpolar cortex of the right kidney suspicious for focal pyelonephritis/lobar nephronia. There is also prominent perivesicular fat stranding about the collapsed bladder, greater than expected in the presence of a Dutton catheter suspicious for superimposed cystitis. *? Wedge-shaped peripheral hypoenhancement within the superior spleen suggestive of splenic infarcts. *? Moderate prostatomegaly. *? Moderate bilateral pleural effusions and accompanying atelectasis. *? Cardiomegaly and triple vessel coronary calcifications. ? Severe increase in lactic likely from multiple clots/ischemia, no evidence of severe sepsis. \ Will still give empiric abx. Cultures are pending.? Surgery consult? Cont lovenox? Attemptted to contact daughter for update, but unable to reach. voicemail left to call back
[2022-09-29 05:22] LABS: ~Lactic Acid-LAB USE ONLY 9.1 mmol/L (0.5-2.0)
[2022-09-29] MEDS: Lactated Ringers 1,000 ML 150 ML IVCONT (05:25)
[2022-09-29 06:01] LABS: Glucose, Whole Blood 157 mg/dL (60-115)
[2022-09-29 07:01] LABS: Reflex Lactate? 2 Y
[2022-09-29] MEDS: Nystatin Powder 15 GM BOTTLE 1 APPL TOPICAL ×2 (07:38→19:19)
[2022-09-29] MEDS: Ammonium Lactate 12 % Cream 140 GM TUBE 1 APPL TOPICAL (07:38)
[2022-09-29] MEDS: 0.9 % Sodium Chloride Flush 3 ML SYRINGE IVFLUSH ×2 (07:38→15:08)
[2022-09-29] MEDS: Chlorhexidine Gluc Oral Rinse 15 ML MOUTHWASH BUCCAL ×3 (07:38→19:19)
[2022-09-29] MEDS: Thiamine HCL 100 MG in 0.9 % Sodium Chloride 100 ML 202 MG IV (07:39)
[2022-09-29 08:20] LABS: ~Lactic Acid-LAB USE ONLY 3.5 mmol/L (0.5-2.0)
--- NOTE | 2022-09-29 08:32 | PM.CNGS ---
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 I was asked to evaluate the patient. Patient is intubated, sedated and no information is available other from nursing staff who notes that the patient has rectal tube is functioning. There has been no abdominal distention. [facility] Past Medical History Medical History Alcohol use disorder, severe, dependence Atrial fibrillation with rapid ventricular response Atrial fibrillation with slow ventricular response Cardiomyopathy CHF (congestive heart failure) Chronic atrial fibrillation Chronic systolic CHF (congestive heart failure) Depressive disorder Diabetes HTN (hypertension) LBBB (left bundle branch block) Family History Family History Mother HTN (hypertension) Father CAD (coronary artery disease) HTN (hypertension) Social History Social History Household Members: None Housing: Apartment Do you presently have visiting nurse or other home services: No Alcohol intake: current Alcohol intake frequency: former alcohol drinker Alcohol type: hard liquor Patient Tobacco Use Status: Former Tobacco user Tobacco use type: Cigarette Advance Directives Date on File: 06/27/21 service: No Current occupational status: retired Meds Allergies Allergy/AdvReac Type Severity Reaction Status Date / Time No Known Allergies Allergy Verified 09/22/21 12:18 Active Medications: Current Medications Chlorhexidine Gluconate (Chlorhexidine Gluc Oral Rinse 15 Ml Mouthwash) 15 ml BUCCAL TID [facility] Last Admin: 09/29/22 07:38 Dose: 15 ml Enoxaparin Sodium (Enoxaparin Sodium 80 Mg/0.8 Ml Syringe) 80 mg 1 mg/kg (80 mg) SUBCUT Q12H [facility] Last Admin: 09/29/22 02:25 Dose: 80 mg Glucose (Glucose Gel 15 Gm Gel..Gram.) 15 gm PO Q15M PRN; Protocol PRN Reason: per Hypoglycemia Standing Ord. Glucose (Glucose Gel 15 Gm Gel..Gram.) 15 gm PO Q15M PRN; Protocol PRN Reason: per Hypoglycemia Standing Ord. Thiamine HCl 100 mg/ Sodium (Chloride) 101 mls @ 202 mls/hr IV DAILY [facility] Last Admin: 09/29/22 07:39 Dose: 202 mls/hr Dextrose (D10) 250 mls @ 750 mls/hr IV Q15M PRN; Protocol PRN Reason: per Hypoglycemia Standing Ord. Furosemide 200 mg/ Sodium (Chloride) 100 mls @ 2.5 mls/hr IVCONT .Q24H [facility] Last Admin: 09/29/22 07:40 Dose: Not Given Propofol (Diprivan) 1,000 mg in 100 mls @ 0 mls/hr IVCONT .Q0M [facility]; Protocol Last Admin: 09/29/22 05:31 Dose: 30 mcg/kg/min, 20 mls/hr Norepinephrine Bitartrate (Levophed) 8 mg in 250 mls @ 0 mls/hr IVCONT .Q0M [facility]; Protocol Last Titration: 09/29/22 07:30 Dose: 0.02 mcg/kg/min, 4.17 mls/hr Lactated Ringer's (Lr) 1,000 mls @ 150 mls/hr IVCONT .Q6H40M [facility] Last Admin: 09/29/22 05:25 Dose: 150 mls/hr Insulin Human Lispro (Insulin Lispro 100 Unit/Ml 3 Ml Vial) 0 unit SUBCUT Q6H [facility]; Protocol Last Admin: 09/29/22 06:00 Dose: Not Given Lactic Acid (Ammonium Lactate 12 % Cream 140 Gm Tube) 1 appl TOPICAL DAILY [facility]; Protocol Last Admin: 09/29/22 07:38 Dose: 1 appl Metoprolol Tartrate (Metoprolol Tartrate 5 Mg/5 Ml Vial) 5 mg IVPUSH Q6H [facility] Last Admin: 09/29/22 07:40 Dose: Not Given Nystatin (Nystatin Powder 15 Gm Bottle) 1 appl TOPICAL BID [facility]; Protocol Last Admin: 09/29/22 07:38 Dose: 1 appl Pantoprazole Sodium (Pantoprazole Sodium 40 Mg/10 Ml Vial) 40 mg IVPUSH DAILY@0630 [facility] Last Admin: 09/29/22 04:55 Dose: 40 mg Sodium Chloride (0.9 % Sodium Chloride Flush 3 Ml Syringe) 3 ml IVFLUSH QSHIFT [facility] Last Admin: 09/29/22 07:38 Dose: 3 ml Home Medications Medication Instructions Recorded Confirmed Last Taken Type amlodipine 10 mg tablet 1 tab PO DAILY 09/17/22 09/17/22 Unknown History aspirin 81 mg tablet,delayed 81 mg PO BEDTIME 09/17/22 09/17/22 Unknown History release folic acid 1 mg tablet 1 mg PO DAILY 09/17/22 09/17/22 Unknown History multivitamin 1 tab PO BEDTIME 09/17/22 09/17/22 Unknown History thiamine HCl (vitamin B1) 100 mg 100 mg PO DAILY 09/17/22 09/17/22 Unknown History tablet Physical Exam Vital Signs: Vital Signs: Last Vital Signs Temp 101.3 F H 09/29/22 08:00 Pulse 72 09/29/22 08:00 Resp 17 09/29/22 08:00 BP 126/70 09/29/22 08:00 Pulse Ox 100 09/29/22 08:00 O2 Del Method 09/29/22 08:00 O2 Flow Rate 2 09/27/22 09:00 FiO2 55 09/29/22 08:00 BMI result Body Mass Index 34.7 The patient is intubated and sedated NC/AT Abdomen is overweight with no demonstrable hernias. No distention, HSM, rebound, rigidity, guarding, masses or bruits are present. Rectal exam is deferred Skin has good turgor and is free of rashes Extremities free of cyanosis clubbing edema Results Labs 09/29/22 02:20 09/29/22 02:20 Labs: Abnormal lab results 09/28/22 09/28/22 09/28/22 Range/Units 11:08 17:19 18:15 WBC (4.8-10.8) X10*3/uL RBC (4.60-5.80) X10*6/uL Hgb (14.0-18.0) g/dl Hct (42.0-52.0) % MCH (27.0-33.0) pg MCHC (31.0-36.0) g/dl RDW (11.0-16.0) % Immature Gran % (Auto) (0.0-0.4) % Neut % (Auto) (45-73) % Lymph % (Auto) (20-40) % Lymph # (Auto) (1.2-4.9) X10*3/uL Abs Immat Gran (auto) (0.00-0.03) X10*3/uL Absolute Neuts (auto) (2.0-8.3) x10*3/uL Absolute Nucleated RBC (0.0-0.012) X10*3/uL Nucleated RBC % (auto) (0.0-0.2) /100WBC ABG pH at Pt Temp (7.35-7.45) ABG pCO2 at Pt Temp (32-45) mmHg ABG pO2 at Pt Temp (83-108) mmHg ABG HCO3 (22-26) mmol/L VBG pH (7.32-7.43) Sodium 152 H (135-145) mmol/L Carbon Dioxide 32 H (22-29) mmol/L Anion Gap (12-20) BUN (9-16) mg/dL Creatinine (0.5-1.4) mg/dL POC Glucose 166 H 176 H (60-115) mg/dL Random Glucose 166 H (60-115) mg/dL Lactic Acid (0.5-2.0) mmol/L Lactic Acid F/U @ 2Hr (0.5-2.0) mmol/L Lactic Acid F/U @ 4Hr (0.5-2.0) mmol/L Calcium 8.2 L (8.4-10.2) mg/dL Phosphorus (2.7-4.5) mg/dL Total Bilirubin (0.0-1.0) mg/dL Direct Bilirubin (0.0-0.5) mg/dL AST (5-37) U/L Alkaline Phosphatase (39-117) U/L Troponin I High Sens (<3.5-35.0) ng/L B-Natriuretic Peptide (<100) pg/mL 09/29/22 09/29/22 09/29/22 Range/Units 01:44 02:20 02:20 WBC 13.2 H (4.8-10.8) X10*3/uL RBC 4.46 L (4.60-5.80) X10*6/uL Hgb 11.5 L (14.0-18.0) g/dl Hct 38.5 L (42.0-52.0) % MCH 25.8 L (27.0-33.0) pg MCHC 29.9 L (31.0-36.0) g/dl RDW 20.7 H (11.0-16.0) % Immature Gran % (Auto) 1.2 H (0.0-0.4) % Neut % (Auto) 87.1 H (45-73) % Lymph % (Auto) 6.5 L (20-40) % Lymph # (Auto) 0.9 L (1.2-4.9) X10*3/uL Abs Immat Gran (auto) 0.16 H (0.00-0.03) X10*3/uL Absolute Neuts (auto) 11.5 H (2.0-8.3) x10*3/uL Absolute Nucleated RBC 0.140 H (0.0-0.012) X10*3/uL Nucleated RBC % (auto) 1.1 H (0.0-0.2) /100WBC ABG pH at Pt Temp 7.15 L* (7.35-7.45) ABG pCO2 at Pt Temp 49 H (32-45) mmHg ABG pO2 at Pt Temp 267 H (83-108) mmHg ABG HCO3 17 L (22-26) mmol/L VBG pH (7.32-7.43) Sodium 156 H (135-145) mmol/L Carbon Dioxide 20 L (22-29) mmol/L Anion Gap 35 H (12-20) BUN 21 H (9-16) mg/dL Creatinine 1.61 H (0.5-1.4) mg/dL POC Glucose (60-115) mg/dL Random Glucose (60-115) mg/dL Lactic Acid (0.5-2.0) mmol/L Lactic Acid F/U @ 2Hr (0.5-2.0) mmol/L Lactic Acid F/U @ 4Hr (0.5-2.0) mmol/L Calcium 8.3 L (8.4-10.2) mg/dL Phosphorus 6.5 H (2.7-4.5) mg/dL Total Bilirubin 4.7 H (0.0-1.0) mg/dL Direct Bilirubin 3.2 H (0.0-0.5) mg/dL AST 88 H (5-37) U/L Alkaline Phosphatase 322 H (39-117) U/L Troponin I High Sens (<3.5-35.0) ng/L B-Natriuretic Peptide (<100) pg/mL 09/29/22 09/29/22 09/29/22 Range/Units 02:20 02:20 02:20 WBC (4.8-10.8) X10*3/uL RBC (4.60-5.80) X10*6/uL Hgb (14.0-18.0) g/dl Hct (42.0-52.0) % MCH (27.0-33.0) pg MCHC (31.0-36.0) g/dl RDW (11.0-16.0) % Immature Gran % (Auto) (0.0-0.4) % Neut % (Auto) (45-73) % Lymph % (Auto) (20-40) % Lymph # (Auto) (1.2-4.9) X10*3/uL Abs Immat Gran (auto) (0.00-0.03) X10*3/uL Absolute Neuts (auto) (2.0-8.3) x10*3/uL Absolute Nucleated RBC (0.0-0.012) X10*3/uL Nucleated RBC % (auto) (0.0-0.2) /100WBC ABG pH at Pt Temp (7.35-7.45) ABG pCO2 at Pt Temp (32-45) mmHg ABG pO2 at Pt Temp (83-108) mmHg ABG HCO3 (22-26) mmol/L VBG pH (7.32-7.43) Sodium (135-145) mmol/L Carbon Dioxide (22-29) mmol/L Anion Gap (12-20) BUN (9-16) mg/dL Creatinine (0.5-1.4) mg/dL POC Glucose (60-115) mg/dL Random Glucose (60-115) mg/dL Lactic Acid 13.1 H* (0.5-2.0) mmol/L Lactic Acid F/U @ 2Hr (0.5-2.0) mmol/L Lactic Acid F/U @ 4Hr (0.5-2.0) mmol/L Calcium (8.4-10.2) mg/dL Phosphorus (2.7-4.5) mg/dL Total Bilirubin (0.0-1.0) mg/dL Direct Bilirubin (0.0-0.5) mg/dL AST (5-37) U/L Alkaline Phosphatase (39-117) U/L Troponin I High Sens 103.2 H* D (<3.5-35.0) ng/L B-Natriuretic Peptide 4253 H (<100) pg/mL 09/29/22 09/29/22 09/29/22 Range/Units 04:29 04:47 05:55 WBC (4.8-10.8) X10*3/uL RBC (4.60-5.80) X10*6/uL Hgb (14.0-18.0) g/dl Hct (42.0-52.0) % MCH (27.0-33.0) pg MCHC (31.0-36.0) g/dl RDW (11.0-16.0) % Immature Gran % (Auto) (0.0-0.4) % Neut % (Auto) (45-73) % Lymph % (Auto) (20-40) % Lymph # (Auto) (1.2-4.9) X10*3/uL Abs Immat Gran (auto) (0.00-0.03) X10*3/uL Absolute Neuts (auto) (2.0-8.3) x10*3/uL Absolute Nucleated RBC (0.0-0.012) X10*3/uL Nucleated RBC % (auto) (0.0-0.2) /100WBC ABG pH at Pt Temp (7.35-7.45) ABG pCO2 at Pt Temp (32-45) mmHg ABG pO2 at Pt Temp (83-108) mmHg ABG HCO3 (22-26) mmol/L VBG pH 7.46 H (7.32-7.43) Sodium (135-145) mmol/L Carbon Dioxide (22-29) mmol/L Anion Gap (12-20) BUN (9-16) mg/dL Creatinine (0.5-1.4) mg/dL POC Glucose 157 H (60-115) mg/dL Random Glucose (60-115) mg/dL Lactic Acid (0.5-2.0) mmol/L Lactic Acid F/U @ 2Hr 9.1 H* (0.5-2.0) mmol/L Lactic Acid F/U @ 4Hr (0.5-2.0) mmol/L Calcium (8.4-10.2) mg/dL Phosphorus (2.7-4.5) mg/dL Total Bilirubin (0.0-1.0) mg/dL Direct Bilirubin (0.0-0.5) mg/dL AST (5-37) U/L Alkaline Phosphatase (39-117) U/L Troponin I High Sens (<3.5-35.0) ng/L B-Natriuretic Peptide (<100) pg/mL 09/29/22 Range/Units 07:47 WBC (4.8-10.8) X10*3/uL RBC (4.60-5.80) X10*6/uL Hgb (14.0-18.0) g/dl Hct (42.0-52.0) % MCH (27.0-33.0) pg MCHC (31.0-36.0) g/dl RDW (11.0-16.0) % Immature Gran % (Auto) (0.0-0.4) % Neut % (Auto) (45-73) % Lymph % (Auto) (20-40) % Lymph # (Auto) (1.2-4.9) X10*3/uL Abs Immat Gran (auto) (0.00-0.03) X10*3/uL Absolute Neuts (auto) (2.0-8.3) x10*3/uL Absolute Nucleated RBC (0.0-0.012) X10*3/uL Nucleated RBC % (auto) (0.0-0.2) /100WBC ABG pH at Pt Temp (7.35-7.45) ABG pCO2 at Pt Temp (32-45) mmHg ABG pO2 at Pt Temp (83-108) mmHg ABG HCO3 (22-26) mmol/L VBG pH (7.32-7.43) Sodium (135-145) mmol/L Carbon Dioxide (22-29) mmol/L Anion Gap (12-20) BUN (9-16) mg/dL Creatinine (0.5-1.4) mg/dL POC Glucose (60-115) mg/dL Random Glucose (60-115) mg/dL Lactic Acid (0.5-2.0) mmol/L Lactic Acid F/U @ 2Hr (0.5-2.0) mmol/L Lactic Acid F/U @ 4Hr 3.5 H* (0.5-2.0) mmol/L Calcium (8.4-10.2) mg/dL Phosphorus (2.7-4.5) mg/dL Total Bilirubin (0.0-1.0) mg/dL Direct Bilirubin (0.0-0.5) mg/dL AST (5-37) U/L Alkaline Phosphatase (39-117) U/L Troponin I High Sens (<3.5-35.0) ng/L B-Natriuretic Peptide (<100) pg/mL Short CBC 09/29/22 Range/Units 02:20 WBC 13.2 H (4.8-10.8) X10*3/uL Hgb 11.5 L (14.0-18.0) g/dl Hct 38.5 L (42.0-52.0) % Plt Count 320 D (160-400) X10*3/uL BMP 09/28/22 09/29/22 18:15 02:20 Sodium 152 H 156 H Potassium 3.4 4.4 D Chloride 104 105 Carbon Dioxide 32 H 20 L BUN 15 21 H Creatinine 1.06 1.61 H Calcium 8.2 L 8.3 L Liver Function 09/29/22 Range/Units 02:20 Total Bilirubin 4.7 H (0.0-1.0) mg/dL Direct Bilirubin 3.2 H (0.0-0.5) mg/dL AST 88 H (5-37) U/L ALT 31 (0-40) U/L Alkaline Phosphatase 322 H (39-117) U/L Albumin 3.9 (3.5-5.0) g/dL Urine 09/16/22 Range/Units 18:48 Urine Color Dark Yellow Urine Appearance Clear Urine pH 5.5 (5.0-9.0) Ur Specific Stephens 1.020 (1.005-1.025) Urine Protein 300 (3+) H (Neg-Trace) mg/dL Urine Glucose (UA) Negative (Negative) mg/dL All other labs normal. Imaging Abdomen CT scan report/results: report reviewed and image reviewed CT scan - pelvis: report reviewed and image reviewed Additional studies: Per my own interpretation of the lower chest, abdomen and pelvic CT, there are bilateral effusions and likely a right lower lobe pneumonia in the lungs No free air, small bowel, colonic or gastric edema is noted suggestive of infarct or embolic event. Infarcts of the spleen and kidney is described in the report are noted Rectal tube in Dutton urine placed Assessment and Plan (1) Atrial fibrillation: Status: Acute (2) Delirium due to another medical condition: Status: Acute (3) Delirium tremens: Status: Acute (4) Acute kidney injury: Status: Acute (5) Acute encephalopathy: Status: Acute (6) Alcoholism: Status: Acute (7) Chronic systolic CHF (congestive heart failure): Status: Acute (8) Acute on chronic clinical systolic heart failure: Status: Acute (9) Ischemic congestive cardiomyopathy: Status: Acute Plan There is no evidence of bowel infarction to mandate surgical intervention. The patient is improving lactic acid is encouraging. Recommend continuing anticoagulation and antibiotics. Infarcts of the spleen are usually quiescent and infarct of the kidneys can contribute to renal dysfunction, but no operative intervention on either is required at this time. It is likely that the spleen and possibly the kidney may develop cystic change, weeks or months after the infarct. This is typically a benign part of healing and does not require surgical intervention. It is often noted on subsequent study in causes consternation but unless it is a possible source of sepsis, no intervention is required. If the patient has return of lactic acidosis, repeat CT with oral and IV contrast to assess for bowel edema that could require operative exploration is in order. Patient's comorbidities make him a significant operative risk Please call with questions Time Spent With Patient Time: Total time managing care of this patient today ____ minutes. Procedures Date of Service Date of Service: 09/29/22
[2022-09-29 08:49] LABS: Venous Blood Gas Refer to POC result
[2022-09-29 08:53] LABS: VBG Base Excess 7.5 mmol/L; VBG HCO3 30 mmol/L (22-26); VBG pCO2 37 mmHg; VBG pH 7.51 (7.32-7.43); VBG pO2 57 mmHg
[2022-09-29 08:59] LABS: Estimated Average Glucose 269 mg/dL
[2022-09-29 09:16] LABS: Alanine Aminotransferase 80 U/L (0-40); Albumin Level 3.7 g/dL (3.5-5.0); Alkaline Phosphatase 248 U/L (39-117); Anion Gap 23 (12-20); Aspartate Amino Transferase 243 U/L (5-37); Bilirubin Total 3.6 mg/dL (0.0-1.0); Blood Urea Nitrogen 26 mg/dL (9-16); Calcium 7.9 mg/dL (8.4-10.2); Carbon Dioxide 27 mmol/L (22-29); Chloride 107 mmol/L (96-108); Creatinine Clr Calc Pharmacy 54.7; Estimated Glomerular Filt Rate 46; Glucose Random 177 mg/dL (60-115); Potassium 3.7 mmol/L (3.3-5.1); Sodium 153 mmol/L (135-145); Total Protein 5.9 g/dL (6.5-8.0)
--- NOTE | 2022-09-29 11:37 | PM.CCPN ---
Subjective Subjective Date of Service: 09/29/22 Interval History: 71-year-old gentleman with underlying history of systolic heart failure left and a right-sided, diabetes mellitus, AFib, hypertension admitted on 3 long-time 23 no with alcohol abuse/alcohol withdrawal further complicated by acute embolic infarct with hemorrhagic conversion, acute hypercapnic respiratory failure requiring intubation and ventilatory support. Patient respiratory status improved with diuresis and he was extubated on 09/24/2022. However, he remains significantly encephalopathic and continues to fail his swallow evaluation and his hospital course further complicated by recurrent hypernatremia and ongoing congestive heart failure. Overnight with development of respiratory distress secondary to metabolic lactic acidosis requiring intubation and ventilatory and vasopressor support. Also developed anuria. Blood cultures sent, started on empiric antibiotics. CT abdomen / pelvis with what appears to be embolic splenic and renal infarcts. Likely transient gastrointestinal ischemia. Lactate improved this a.m.. Surgical evaluation request aunt and deemed not requiring surgical intervention at this time. Critical Care Time (minutes): 60 Physical Exam Vital Signs: Vital Signs: Last Vital Signs Temp 100.4 F 09/29/22 11:00 Pulse 69 09/29/22 11:00 Resp 18 09/29/22 11:00 BP 132/78 09/29/22 11:00 Pulse Ox 100 09/29/22 11:00 O2 Del Method 09/29/22 11:00 O2 Flow Rate 2 09/27/22 09:00 FiO2 25 09/29/22 11:10 BMI result Body Mass Index 34.7 Const: General: no acute distress and other ( Sedated on the vent) Eyes: Sclerae: sclerae normal Neck: Neck: Yes no lymphadenopathy, Yes trachea midline and Yes supple Resp: Auscultation: crackles ( diffuse bilateral) Cardio: Rate: regular rate Rhythm: regular rhythm Heart sounds: no gallops, no murmurs and no rubs GI: Palpation (GI): Soft to palpation and Other GI palpation findings present ( Nontender) Auscultation: normal bowel sounds Extrem: General: No clubbing, No cyanosis and Yes edema ( 1+ bilateral) Objective Data Labs 09/29/22 02:20 09/29/22 08:40 Labs: Laboratory Results - last 24 hr 09/28/22 09/28/22 09/28/22 17:19 18:15 23:42 WBC RBC Hgb Hct MCV MCH MCHC RDW Plt Count MPV Immature Gran % (Auto) Neut % (Auto) Lymph % (Auto) Sullivan % (Auto) Eos % (Auto) Baso % (Auto) Lymph # (Auto) Sullivan # (Auto) Eos # (Auto) Baso # (Auto) Abs Immat Gran (auto) Absolute Neuts (auto) Absolute Nucleated RBC Nucleated RBC % (auto) O2 Saturation ABG pH at Pt Temp ABG pCO2 at Pt Temp ABG pO2 at Pt Temp ABG HCO3 ABG Base Excess (Actual) VBG pH VBG pCO2 VBG pO2 VBG HCO3 VBG O2 Saturation VBG Base Excess Sodium 152 H Potassium 3.4 Chloride 104 Carbon Dioxide 32 H Anion Gap 19 BUN 15 Creatinine 1.06 Estim Creat Clear Calc 77.4 Estimated GFR > 60 POC Glucose 176 H 104 Random Glucose 166 H Estimat Average Glucose Hemoglobin A1c % Lactic Acid Lactic Acid F/U @ 2Hr Lactic Acid F/U @ 4Hr Calcium 8.2 L Phosphorus 3.4 Magnesium 1.6 Total Bilirubin Direct Bilirubin AST ALT Alkaline Phosphatase Troponin I High Sens B-Natriuretic Peptide Total Protein Albumin 09/29/22 09/29/22 09/29/22 01:44 02:20 02:20 WBC 13.2 H RBC 4.46 L Hgb 11.5 L Hct 38.5 L MCV 86.3 MCH 25.8 L MCHC 29.9 L RDW 20.7 H Plt Count 320 D MPV 11.1 Immature Gran % (Auto) 1.2 H Neut % (Auto) 87.1 H Lymph % (Auto) 6.5 L Sullivan % (Auto) 4.9 Eos % (Auto) 0.1 Baso % (Auto) 0.2 Lymph # (Auto) 0.9 L Sullivan # (Auto) 0.7 Eos # (Auto) 0.0 Baso # (Auto) 0.0 Abs Immat Gran (auto) 0.16 H Absolute Neuts (auto) 11.5 H Absolute Nucleated RBC 0.140 H Nucleated RBC % (auto) 1.1 H O2 Saturation 100.0 ABG pH at Pt Temp 7.15 L* ABG pCO2 at Pt Temp 49 H ABG pO2 at Pt Temp 267 H ABG HCO3 17 L ABG Base Excess (Actual) -10.9 VBG pH VBG pCO2 VBG pO2 VBG HCO3 VBG O2 Saturation VBG Base Excess Sodium 156 H Potassium 4.4 D Chloride 105 Carbon Dioxide 20 L Anion Gap 35 H BUN 21 H Creatinine 1.61 H Estim Creat Clear Calc 51.0 Estimated GFR 42 POC Glucose Random Glucose 70 Estimat Average Glucose Hemoglobin A1c % Lactic Acid Lactic Acid F/U @ 2Hr Lactic Acid F/U @ 4Hr Calcium 8.3 L Phosphorus 6.5 H Magnesium 1.9 Total Bilirubin 4.7 H Direct Bilirubin 3.2 H AST 88 H ALT 31 Alkaline Phosphatase 322 H Troponin I High Sens B-Natriuretic Peptide Total Protein 6.8 Albumin 3.9 09/29/22 09/29/22 09/29/22 02:20 02:20 02:20 WBC RBC Hgb Hct MCV MCH MCHC RDW Plt Count MPV Immature Gran % (Auto) Neut % (Auto) Lymph % (Auto) Sullivan % (Auto) Eos % (Auto) Baso % (Auto) Lymph # (Auto) Sullivan # (Auto) Eos # (Auto) Baso # (Auto) Abs Immat Gran (auto) Absolute Neuts (auto) Absolute Nucleated RBC Nucleated RBC % (auto) O2 Saturation ABG pH at Pt Temp ABG pCO2 at Pt Temp ABG pO2 at Pt Temp ABG HCO3 ABG Base Excess (Actual) VBG pH VBG pCO2 VBG pO2 VBG HCO3 VBG O2 Saturation VBG Base Excess Sodium Potassium Chloride Carbon Dioxide Anion Gap BUN Creatinine Estim Creat Clear Calc Estimated GFR POC Glucose Random Glucose Estimat Average Glucose Hemoglobin A1c % Lactic Acid 13.1 H* Lactic Acid F/U @ 2Hr Lactic Acid F/U @ 4Hr Calcium Phosphorus Magnesium Total Bilirubin Direct Bilirubin AST ALT Alkaline Phosphatase Troponin I High Sens 103.2 H* D B-Natriuretic Peptide 4253 H Total Protein Albumin 09/29/22 09/29/22 09/29/22 04:29 04:47 05:55 WBC RBC Hgb Hct MCV MCH MCHC RDW Plt Count MPV Immature Gran % (Auto) Neut % (Auto) Lymph % (Auto) Sullivan % (Auto) Eos % (Auto) Baso % (Auto) Lymph # (Auto) Sullivan # (Auto) Eos # (Auto) Baso # (Auto) Abs Immat Gran (auto) Absolute Neuts (auto) Absolute Nucleated RBC Nucleated RBC % (auto) O2 Saturation ABG pH at Pt Temp ABG pCO2 at Pt Temp ABG pO2 at Pt Temp ABG HCO3 ABG Base Excess (Actual) VBG pH 7.46 H VBG pCO2 30 VBG pO2 46 VBG HCO3 22 VBG O2 Saturation 71.0 VBG Base Excess -0.7 Sodium Potassium Chloride Carbon Dioxide Anion Gap BUN Creatinine Estim Creat Clear Calc Estimated GFR POC Glucose 157 H Random Glucose Estimat Average Glucose Hemoglobin A1c % Lactic Acid Lactic Acid F/U @ 2Hr 9.1 H* Lactic Acid F/U @ 4Hr Calcium Phosphorus Magnesium Total Bilirubin Direct Bilirubin AST ALT Alkaline Phosphatase Troponin I High Sens B-Natriuretic Peptide Total Protein Albumin 09/29/22 09/29/22 09/29/22 07:47 08:40 08:40 WBC RBC Hgb Hct MCV MCH MCHC RDW Plt Count MPV Immature Gran % (Auto) Neut % (Auto) Lymph % (Auto) Sullivan % (Auto) Eos % (Auto) Baso % (Auto) Lymph # (Auto) Sullivan # (Auto) Eos # (Auto) Baso # (Auto) Abs Immat Gran (auto) Absolute Neuts (auto) Absolute Nucleated RBC Nucleated RBC % (auto) O2 Saturation ABG pH at Pt Temp ABG pCO2 at Pt Temp ABG pO2 at Pt Temp ABG HCO3 ABG Base Excess (Actual) VBG pH VBG pCO2 VBG pO2 VBG HCO3 VBG O2 Saturation VBG Base Excess Sodium 153 H Potassium 3.7 Chloride 107 Carbon Dioxide 27 Anion Gap 23 H BUN 26 H Creatinine 1.49 H Estim Creat Clear Calc 54.7 Estimated GFR 46 POC Glucose Random Glucose 177 H Estimat Average Glucose 269 Hemoglobin A1c % 11.0 Lactic Acid Lactic Acid F/U @ 2Hr Lactic Acid F/U @ 4Hr 3.5 H* Calcium 7.9 L Phosphorus Magnesium Total Bilirubin 3.6 H Direct Bilirubin AST 243 H ALT 80 H Alkaline Phosphatase 248 H Troponin I High Sens B-Natriuretic Peptide Total Protein 5.9 L Albumin 3.7 09/29/22 08:46 WBC RBC Hgb Hct MCV MCH MCHC RDW Plt Count MPV Immature Gran % (Auto) Neut % (Auto) Lymph % (Auto) Sullivan % (Auto) Eos % (Auto) Baso % (Auto) Lymph # (Auto) Sullivan # (Auto) Eos # (Auto) Baso # (Auto) Abs Immat Gran (auto) Absolute Neuts (auto) Absolute Nucleated RBC Nucleated RBC % (auto) O2 Saturation ABG pH at Pt Temp ABG pCO2 at Pt Temp ABG pO2 at Pt Temp ABG HCO3 ABG Base Excess (Actual) VBG pH 7.51 H VBG pCO2 37 VBG pO2 57 VBG HCO3 30 H VBG O2 Saturation 85.0 VBG Base Excess 7.5 Sodium Potassium Chloride Carbon Dioxide Anion Gap BUN Creatinine Estim Creat Clear Calc Estimated GFR POC Glucose Random Glucose Estimat Average Glucose Hemoglobin A1c % Lactic Acid Lactic Acid F/U @ 2Hr Lactic Acid F/U @ 4Hr Calcium Phosphorus Magnesium Total Bilirubin Direct Bilirubin AST ALT Alkaline Phosphatase Troponin I High Sens B-Natriuretic Peptide Total Protein Albumin Microbiology Microbiology Results: Microbiology 09/28/22 21:58 Sputum - Suctioned Gram Stain - Final 09/28/22 21:58 Sputum - Suctioned Sputum Culture - Preliminary Culture in progress. 09/21/22 04:00 Sputum - Suctioned Gram Stain - Final 09/21/22 04:00 Sputum - Suctioned Sputum Culture - Final No growth. 09/16/22 14:56 Blood - Venous Blood Culture - Final No growth after 5 days. 09/16/22 14:56 Blood - Venous Blood Culture - Final No growth after 5 days. Progress Note: A&P Assessment and plan (1) Acute respiratory failure with hypoxia: Status: Acute (2) Metabolic acidosis: Status: Acute (3) Embolic infarction: Status: Acute (4) Diabetes: Status: Acute (5) Acute on chronic clinical systolic heart failure: Status: Acute (6) Alcoholism: Status: Acute (7) Acute CVA (cerebrovascular accident): Status: Acute (8) Acute kidney injury: Status: Acute (9) Atrial fibrillation: Status: Acute Plan Assessment: 71-year-old gentleman admitted with alcohol intoxication and acute embolic stroke complicated by hemorrhagic conversion, delirium tremens, acute respiratory failure, acute on chronic systolic congestive heart failure, residual encephalopathy, and dysphagia Plan: Neuro: Acute ischemic stroke with hemorrhagic conversion, now worried residual encephalopathy and persistent dysphagia. Family discussion about PEG placement ongoing. Cardiac: Acute on chronic biventricular systolic congestive heart failure. Continue with diuresis. Underlying AFib On full-dose Lovenox. Concern for mural thrombus with multiple embolic events including renal and splenic infarcts. Cardiology evaluation for possible JOE requested. Pulmonary: acute respiratory failure on the background of metabolic acidosis requiring ventilatory support. Continue to titrate off as tolerated. Renal: No acute issues. Endo: No acute issues. Underlying diabetes mellitus. GI: likely transient gastrointestinal ischemia from an embolic event resulting in metabolic acidosis. General surgery service care appreciated. No plan for procedural intervention at this time. ID: Hypotension / end-organ damage / elevated lactate are likely secondary to gastrointestinal ischemia and not sepsis. Blood cultures are pending. Empirically covered with broad-spectrum antibiotics. Heme/Onc: No acute issues. Psych: No acute issues. Miscellaneous: Overall poor clinical prognosis, discussions of goals of care ongoing with the family. Prophylaxis: Lovenox, ppi Diet: Nothing by mouth Critical care time spent: 60 minutes Quality Stroke Does the patient have a stroke diagnosis?: No VTE Prior VTE?: No VTE Risk Level:: Medical - moderate - high VTE Device Contraindication: Treatment Not Indicated VTE Drug Contraindication: N/A - Med Ordered
--- NOTE | 2022-09-29 11:44 | MHC.SLORD ---
Speech Language Pathology Order Status: Per chart, patient re-intubated 06/30/23. Will continue to monitor for readiness for swallow evaluation.
--- NOTE | 2022-09-29 12:05 | PHA.PROG ---
Admission Date/Time: September 16, 2022 19:38 Indication: OTHER Weight in k.7 kg Adjusted body weight in Kg: [place] body weight in Kg: Obesity Dosing Indication % IBW: Serum Creatinine - Last 168 Hours 09/22/22 09/23/22 09/23/22 14:58 00:25 04:36 Creatinine 1.04 0.95 0.89 09/24/22 09/25/22 09/25/22 04:36 04:45 20:30 Creatinine 0.90 0.98 0.87 09/26/22 09/26/22 09/27/22 04:50 20:03 04:43 Creatinine 0.87 0.90 0.90 09/28/22 09/28/22 09/29/22 04:50 18:15 02:20 Creatinine 0.88 1.06 1.61 H 09/29/22 08:40 Creatinine 1.49 H Estimated CrCl and GFR - Last 168 Hours 09/22/22 09/23/22 09/23/22 14:58 00:25 04:36 Estim Creat Clear Calc 82.4 90.3 96.1 Estimated GFR > 60 > 60 > 60 09/24/22 09/25/22 09/25/22 04:36 04:45 20:30 Estim Creat Clear Calc 95.1 87.8 97.6 Estimated GFR > 60 > 60 > 60 09/26/22 09/26/22 09/27/22 04:50 20:03 04:43 Estim Creat Clear Calc 96.2 93.0 91.7 Estimated GFR > 60 > 60 > 60 09/28/22 09/28/22 09/29/22 04:50 18:15 02:20 Estim Creat Clear Calc 93.3 77.4 51.0 Estimated GFR > 60 > 60 42 09/29/22 08:40 Estim Creat Clear Calc 54.7 Estimated GFR 46 Vancomycin Loading Dose: 2000 MG Current Vancomycin Dosing Regimen: 1000 MG Q24H Vancomycin Monitoring using AUC goal of 400 - 600 range with trough as surrogate marker: AUC 485, TROUGH 13.6 Date and Time for next Vancomycin Level to be drawn: RANDOM 10/01 @0500 Pharmacist Comments on Vancomycin Plan: WATCH SCR. PATIENT IN MU ON ZOSYN AND ETOH ISSUES Vancomycin dosing will take advantage of Thing[employer] as a clinical decision support tool that uses Bayesian modeling to calculate individual patient's pharmacokinetic parameters and forecast the patient's drug concentration time course with the target goal AUC 24 range of 400 - 600 mg/L/hr.
[2022-09-29 12:09] LABS: Glucose, Whole Blood 158 mg/dL (60-115)
--- NOTE | 2022-09-29 12:18 | MHC.CLN ---
F/U PATIENT INTUBATED AND SEDATED. SEDATION PROVIDES 528 KCALS. NO TUBE FEEDING. CONTINUES NPO FOLLOW WITH TEAM FOR PLAN OF CARE.
[2022-09-29] MEDS: Piperacillin Sodium/Tazobactam 3.375 GM in 0.9 % Sodium Chloride 50 ML IV ×2 (12:19→17:52)
--- NOTE | 2022-09-29 16:47 | PM.CNCAR ---
History of Present Illness History of Present Illness Date of Service: 09/29/22 Requesting physician: Ed Meredith Chief complaint: Systemic embolism Narrative: 71-year-old gentleman with cardiomyopathy and background of alcoholism who is in the intensive care unit currently intubated with recent CVA with hemorrhagic conversion. He also concern for right renal as well as splenic infarcts. We have been asked to assess him for mural thrombus in the ventricle as potential cause for thromboembolism and whether a JOE will help. Patient is currently sedated ventilated and history is not possible from him. He is on Lovenox therapeutic dose currently. Telemetry is showing atrial fibrillation. [facility] Past Medical History Medical History Alcohol use disorder, severe, dependence Atrial fibrillation with rapid ventricular response Atrial fibrillation with slow ventricular response Cardiomyopathy CHF (congestive heart failure) Chronic atrial fibrillation Chronic systolic CHF (congestive heart failure) Depressive disorder Diabetes HTN (hypertension) LBBB (left bundle branch block) Family History Family History Mother HTN (hypertension) Father CAD (coronary artery disease) HTN (hypertension) Social History Social History Household Members: None Housing: Apartment Do you presently have visiting nurse or other home services: No Alcohol intake: current Alcohol intake frequency: former alcohol drinker Alcohol type: hard liquor Patient Tobacco Use Status: Former Tobacco user Tobacco use type: Cigarette Advance Directives Date on File: 06/27/21 service: No Current occupational status: retired Meds Allergies Allergy/AdvReac Type Severity Reaction Status Date / Time No Known Allergies Allergy Verified 09/22/21 12:18 Active Medications: Current Medications Chlorhexidine Gluconate (Chlorhexidine Gluc Oral Rinse 15 Ml Mouthwash) 15 ml BUCCAL TID [facility] Last Admin: 09/29/22 15:08 Dose: 15 ml Enoxaparin Sodium (Enoxaparin Sodium 80 Mg/0.8 Ml Syringe) 80 mg 1 mg/kg (80 mg) SUBCUT Q12H [facility] Last Admin: 09/29/22 12:19 Dose: 80 mg Glucose (Glucose Gel 15 Gm Gel..Gram.) 15 gm PO Q15M PRN; Protocol PRN Reason: per Hypoglycemia Standing Ord. Glucose (Glucose Gel 15 Gm Gel..Gram.) 15 gm PO Q15M PRN; Protocol PRN Reason: per Hypoglycemia Standing Ord. Thiamine HCl 100 mg/ Sodium (Chloride) 101 mls @ 202 mls/hr IV DAILY [facility] Last Infusion: 09/29/22 08:25 Dose: Infused Dextrose (D10) 250 mls @ 750 mls/hr IV Q15M PRN; Protocol PRN Reason: per Hypoglycemia Standing Ord. Propofol (Diprivan) 1,000 mg in 100 mls @ 0 mls/hr IVCONT .Q0M [facility]; Protocol Last Admin: 09/29/22 15:54 Dose: 30 mcg/kg/min, 20 mls/hr Norepinephrine Bitartrate (Levophed) 8 mg in 250 mls @ 0 mls/hr IVCONT .Q0M [facility]; Protocol Last Titration: 09/29/22 07:30 Dose: 0.02 mcg/kg/min, 4.17 mls/hr Piperacillin Sod/Tazobactam (Sod 3.375 gm/ Sodium Chloride) 50 mls @ 100 mls/hr IV Q6H [facility] Last Infusion: 09/29/22 12:50 Dose: Infused Vancomycin HCl 1,000 mg/ (Sodium Chloride) 270 mls @ 270 mls/hr IV Q24H [facility] Insulin Human Lispro (Insulin Lispro 100 Unit/Ml 3 Ml Vial) 0 unit SUBCUT Q6H [facility]; Protocol Last Admin: 09/29/22 12:24 Dose: Not Given Lactic Acid (Ammonium Lactate 12 % Cream 140 Gm Tube) 1 appl TOPICAL DAILY [facility]; Protocol Last Admin: 09/29/22 07:38 Dose: 1 appl Metoprolol Tartrate (Metoprolol Tartrate 5 Mg/5 Ml Vial) 5 mg IVPUSH Q6H [facility] Last Admin: 09/29/22 14:39 Dose: Not Given Nystatin (Nystatin Powder 15 Gm Bottle) 1 appl TOPICAL BID [facility]; Protocol Last Admin: 09/29/22 07:38 Dose: 1 appl Pantoprazole Sodium (Pantoprazole Sodium 40 Mg/10 Ml Vial) 40 mg IVPUSH DAILY@0630 [facility] Last Admin: 09/29/22 04:55 Dose: 40 mg Pharmacy Consult (Consult Rx Vancomycin Dosing) 1 each MISCELLANE DAILY PRN PRN Reason: Consult order Sodium Chloride (0.9 % Sodium Chloride Flush 3 Ml Syringe) 3 ml IVFLUSH QSHIFT [facility] Last Admin: 09/29/22 15:08 Dose: 3 ml Home Medications Medication Instructions Recorded Confirmed Last Taken Type amlodipine 10 mg tablet 1 tab PO DAILY 09/17/22 09/17/22 Unknown History aspirin 81 mg tablet,delayed 81 mg PO BEDTIME 09/17/22 09/17/22 Unknown History release folic acid 1 mg tablet 1 mg PO DAILY 09/17/22 09/17/22 Unknown History multivitamin 1 tab PO BEDTIME 09/17/22 09/17/22 Unknown History thiamine HCl (vitamin B1) 100 mg 100 mg PO DAILY 09/17/22 09/17/22 Unknown History tablet Physical Exam Vital Signs: Vital Signs: Last Vital Signs Temp 100.6 F H 09/29/22 16:31 Pulse 63 09/29/22 16:31 Resp 34 H 09/29/22 16:31 BP 139/61 09/29/22 16:31 Pulse Ox 100 09/29/22 16:31 O2 Del Method 09/29/22 16:31 O2 Flow Rate 2 09/27/22 09:00 FiO2 25 09/29/22 16:31 BMI result Body Mass Index 34.7 GENERAL APPEARANCE: Sedated ventilated. NECK: Right IJ triple-lumen catheter. SKIN: no suspicious lesions, warm and dry. HEART: no murmurs, irregular rate and rhythm. LUNGS: clear to auscultation bilaterally. ABDOMEN: soft, nontender. EXTREMITIES: no edema. PERIPHERAL PULSES: equal. NEUROLOGIC: No gross deficits, AAO X 3 Objective Labs and Meds 09/29/22 02:20 09/29/22 08:40 Lab results: Laboratory Results - last 24 hr 09/28/22 09/28/22 09/28/22 17:19 18:15 23:42 WBC RBC Hgb Hct MCV MCH MCHC RDW Plt Count MPV Immature Gran % (Auto) Neut % (Auto) Lymph % (Auto) Dickson % (Auto) Eos % (Auto) Baso % (Auto) Lymph # (Auto) Dickson # (Auto) Eos # (Auto) Baso # (Auto) Abs Immat Gran (auto) Absolute Neuts (auto) Absolute Nucleated RBC Nucleated RBC % (auto) O2 Saturation ABG pH at Pt Temp ABG pCO2 at Pt Temp ABG pO2 at Pt Temp ABG HCO3 ABG Base Excess (Actual) VBG pH VBG pCO2 VBG pO2 VBG HCO3 VBG O2 Saturation VBG Base Excess Sodium 152 H Potassium 3.4 Chloride 104 Carbon Dioxide 32 H Anion Gap 19 BUN 15 Creatinine 1.06 Estim Creat Clear Calc 77.4 Estimated GFR > 60 POC Glucose 176 H 104 Random Glucose 166 H Estimat Average Glucose Hemoglobin A1c % Lactic Acid Lactic Acid F/U @ 2Hr Lactic Acid F/U @ 4Hr Calcium 8.2 L Phosphorus 3.4 Magnesium 1.6 Total Bilirubin Direct Bilirubin AST ALT Alkaline Phosphatase Troponin I High Sens B-Natriuretic Peptide Total Protein Albumin 09/29/22 09/29/22 09/29/22 01:44 02:20 02:20 WBC 13.2 H RBC 4.46 L Hgb 11.5 L Hct 38.5 L MCV 86.3 MCH 25.8 L MCHC 29.9 L RDW 20.7 H Plt Count 320 D MPV 11.1 Immature Gran % (Auto) 1.2 H Neut % (Auto) 87.1 H Lymph % (Auto) 6.5 L Dickson % (Auto) 4.9 Eos % (Auto) 0.1 Baso % (Auto) 0.2 Lymph # (Auto) 0.9 L Dickson # (Auto) 0.7 Eos # (Auto) 0.0 Baso # (Auto) 0.0 Abs Immat Gran (auto) 0.16 H Absolute Neuts (auto) 11.5 H Absolute Nucleated RBC 0.140 H Nucleated RBC % (auto) 1.1 H O2 Saturation 100.0 ABG pH at Pt Temp 7.15 L* ABG pCO2 at Pt Temp 49 H ABG pO2 at Pt Temp 267 H ABG HCO3 17 L ABG Base Excess (Actual) -10.9 VBG pH VBG pCO2 VBG pO2 VBG HCO3 VBG O2 Saturation VBG Base Excess Sodium 156 H Potassium 4.4 D Chloride 105 Carbon Dioxide 20 L Anion Gap 35 H BUN 21 H Creatinine 1.61 H Estim Creat Clear Calc 51.0 Estimated GFR 42 POC Glucose Random Glucose 70 Estimat Average Glucose Hemoglobin A1c % Lactic Acid Lactic Acid F/U @ 2Hr Lactic Acid F/U @ 4Hr Calcium 8.3 L Phosphorus 6.5 H Magnesium 1.9 Total Bilirubin 4.7 H Direct Bilirubin 3.2 H AST 88 H ALT 31 Alkaline Phosphatase 322 H Troponin I High Sens B-Natriuretic Peptide Total Protein 6.8 Albumin 3.9 09/29/22 09/29/22 09/29/22 02:20 02:20 02:20 WBC RBC Hgb Hct MCV MCH MCHC RDW Plt Count MPV Immature Gran % (Auto) Neut % (Auto) Lymph % (Auto) Dickson % (Auto) Eos % (Auto) Baso % (Auto) Lymph # (Auto) Dickson # (Auto) Eos # (Auto) Baso # (Auto) Abs Immat Gran (auto) Absolute Neuts (auto) Absolute Nucleated RBC Nucleated RBC % (auto) O2 Saturation ABG pH at Pt Temp ABG pCO2 at Pt Temp ABG pO2 at Pt Temp ABG HCO3 ABG Base Excess (Actual) VBG pH VBG pCO2 VBG pO2 VBG HCO3 VBG O2 Saturation VBG Base Excess Sodium Potassium Chloride Carbon Dioxide Anion Gap BUN Creatinine Estim Creat Clear Calc Estimated GFR POC Glucose Random Glucose Estimat Average Glucose Hemoglobin A1c % Lactic Acid 13.1 H* Lactic Acid F/U @ 2Hr Lactic Acid F/U @ 4Hr Calcium Phosphorus Magnesium Total Bilirubin Direct Bilirubin AST ALT Alkaline Phosphatase Troponin I High Sens 103.2 H* D B-Natriuretic Peptide 4253 H Total Protein Albumin 09/29/22 09/29/22 09/29/22 04:29 04:47 05:55 WBC RBC Hgb Hct MCV MCH MCHC RDW Plt Count MPV Immature Gran % (Auto) Neut % (Auto) Lymph % (Auto) Dickson % (Auto) Eos % (Auto) Baso % (Auto) Lymph # (Auto) Dickson # (Auto) Eos # (Auto) Baso # (Auto) Abs Immat Gran (auto) Absolute Neuts (auto) Absolute Nucleated RBC Nucleated RBC % (auto) O2 Saturation ABG pH at Pt Temp ABG pCO2 at Pt Temp ABG pO2 at Pt Temp ABG HCO3 ABG Base Excess (Actual) VBG pH 7.46 H VBG pCO2 30 VBG pO2 46 VBG HCO3 22 VBG O2 Saturation 71.0 VBG Base Excess -0.7 Sodium Potassium Chloride Carbon Dioxide Anion Gap BUN Creatinine Estim Creat Clear Calc Estimated GFR POC Glucose 157 H Random Glucose Estimat Average Glucose Hemoglobin A1c % Lactic Acid Lactic Acid F/U @ 2Hr 9.1 H* Lactic Acid F/U @ 4Hr Calcium Phosphorus Magnesium Total Bilirubin Direct Bilirubin AST ALT Alkaline Phosphatase Troponin I High Sens B-Natriuretic Peptide Total Protein Albumin 09/29/22 09/29/22 09/29/22 07:47 08:40 08:40 WBC RBC Hgb Hct MCV MCH MCHC RDW Plt Count MPV Immature Gran % (Auto) Neut % (Auto) Lymph % (Auto) Dickson % (Auto) Eos % (Auto) Baso % (Auto) Lymph # (Auto) Dickson # (Auto) Eos # (Auto) Baso # (Auto) Abs Immat Gran (auto) Absolute Neuts (auto) Absolute Nucleated RBC Nucleated RBC % (auto) O2 Saturation ABG pH at Pt Temp ABG pCO2 at Pt Temp ABG pO2 at Pt Temp ABG HCO3 ABG Base Excess (Actual) VBG pH VBG pCO2 VBG pO2 VBG HCO3 VBG O2 Saturation VBG Base Excess Sodium 153 H Potassium 3.7 Chloride 107 Carbon Dioxide 27 Anion Gap 23 H BUN 26 H Creatinine 1.49 H Estim Creat Clear Calc 54.7 Estimated GFR 46 POC Glucose Random Glucose 177 H Estimat Average Glucose 269 Hemoglobin A1c % 11.0 Lactic Acid Lactic Acid F/U @ 2Hr Lactic Acid F/U @ 4Hr 3.5 H* Calcium 7.9 L Phosphorus Magnesium Total Bilirubin 3.6 H Direct Bilirubin AST 243 H ALT 80 H Alkaline Phosphatase 248 H Troponin I High Sens B-Natriuretic Peptide Total Protein 5.9 L Albumin 3.7 09/29/22 09/29/22 08:46 12:05 WBC RBC Hgb Hct MCV MCH MCHC RDW Plt Count MPV Immature Gran % (Auto) Neut % (Auto) Lymph % (Auto) Dickson % (Auto) Eos % (Auto) Baso % (Auto) Lymph # (Auto) Dickson # (Auto) Eos # (Auto) Baso # (Auto) Abs Immat Gran (auto) Absolute Neuts (auto) Absolute Nucleated RBC Nucleated RBC % (auto) O2 Saturation ABG pH at Pt Temp ABG pCO2 at Pt Temp ABG pO2 at Pt Temp ABG HCO3 ABG Base Excess (Actual) VBG pH 7.51 H VBG pCO2 37 VBG pO2 57 VBG HCO3 30 H VBG O2 Saturation 85.0 VBG Base Excess 7.5 Sodium Potassium Chloride Carbon Dioxide Anion Gap BUN Creatinine Estim Creat Clear Calc Estimated GFR POC Glucose 158 H Random Glucose Estimat Average Glucose Hemoglobin A1c % Lactic Acid Lactic Acid F/U @ 2Hr Lactic Acid F/U @ 4Hr Calcium Phosphorus Magnesium Total Bilirubin Direct Bilirubin AST ALT Alkaline Phosphatase Troponin I High Sens B-Natriuretic Peptide Total Protein Albumin Imaging Radiologist's impression: Impressions Chest X-Ray 09/29/22 01:05 IMPRESSION: Small bilateral pleural effusions with accompanying atelectasis, similar to prior. Chest X-Ray 09/29/22 02:35 IMPRESSION: * Endotracheal tube terminates 5.6 cm above the gisel. * Stable small bilateral pleural effusions and accompanying atelectasis. Abdomen/Pelvis CT 09/29/22 04:00 IMPRESSION: * Patchy hypoenhancement in the lateral interpolar cortex of the right kidney suspicious for focal pyelonephritis/lobar nephronia. There is also prominent perivesicular fat stranding about the collapsed bladder, greater than expected in the presence of a Dutton catheter suspicious for superimposed cystitis. * Wedge-shaped peripheral hypoenhancement within the superior spleen suggestive of splenic infarcts. * Moderate prostatomegaly. * Moderate bilateral pleural effusions and accompanying atelectasis. * Cardiomegaly and triple vessel coronary calcifications. Assessment and Plan (1) Embolic infarction: Status: Acute (2) Atrial fibrillation: Status: Acute Plan 71-year-old gentleman with concern for arterial thromboembolism. He had echocardiography performed with definity and there is no evidence of mural thrombus present. Imaging is quite clear. He also has reasons for thromboembolism including atrial fibrillation although he has been on Lovenox therapeutic dose at this point. 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 Obviously if his blood cultures are positive and there is concern for endocarditis then we can do transesophageal echocardiography. Again in that case the question would be that we will he be a surgical candidate in case we fine any surgical disease in him. Continue supportive care as before. Thank you for allowing me to participate in the care of your patient. Please feel free to contact me if you have any questions. Time Spent With Patient Time: Total time managing care of this patient today ____ minutes. Procedures Date of Service Date of Service: 09/29/22
[2022-09-29 17:48] LABS: Glucose, Whole Blood 164 mg/dL (60-115)
--- NOTE | 2022-09-29 18:38 | PC.NURSE ---
Pt continues to be sedated/ intubated; on AC settings of 18/400/5/25%, tolerating. Pt weaned off Levophed, continues to be Afib with BBB, occasionally bradys to 40s, unsustained. Pt has +BSX4, abdomen is round but soft to palpation; rectal tube intact and putting out small amounts of loose stool. OGtube clamped at this time, POC stable. Dutton in place and draining dark katty urine, 50cc/hr. Pt bathed and skin care provided. Repositioned every 2 hrs and PRN, prevalon system and wedges utilized. Low grade temp of 100.6. Pt otherwise in no acute distress. Family updated and MD spoke with them in regards to plan of care. Safety maintained throughout. Will continue to monitor.
[2022-09-29 23:50] LABS: Glucose, Whole Blood 141 mg/dL (60-115)
[2022-09-30] VITALS (31 sets, daily range): BP systolic 118–172; BP diastolic 52–85; PULSE 63–79; RESP 15–71; TEMP 34.9–38; O2SAT 93–100; BMI 35.5
[2022-09-30] MEDS: Piperacillin Sodium/Tazobactam 3.375 GM in 0.9 % Sodium Chloride 50 ML IV ×4 (00:10→17:54)
[2022-09-30] MEDS: 0.9 % Sodium Chloride Flush 3 ML SYRINGE IVFLUSH ×3 (00:11→15:04)
[2022-09-30] MEDS: Enoxaparin Sodium 80 MG/0.8 ML SYRINGE SUBCUT ×2 (00:12→13:46)
[2022-09-30] MEDS: propofoL 1,000 MG/100 ML VIAL 20 MG IVCONT ×2 (02:23→05:59)
[2022-09-30 04:45] LABS: VBG Base Excess 11.7 mmol/L; VBG HCO3 34 mmol/L (22-26); VBG pCO2 35 mmHg; VBG pH 7.58 (7.32-7.43); VBG pO2 40 mmHg
[2022-09-30 04:48] LABS: Venous Blood Gas Refer to POC result
[2022-09-30 04:54] LABS: MANUAL DIFF FLAG NO
[2022-09-30 04:56] LABS: Basophils Absolute Auto 0.1 X10*3/uL (0.0-0.2); Basophils Percent Auto 0.7 % (0-2); Eosinophils Absolute Auto 0.2 X10*3/uL (0.0-0.4); Eosinophils Percent Auto 1.8 % (0-4); Hematocrit 31.8 % (42.0-52.0); Hemoglobin 10.1 g/dl (14.0-18.0); Imm Gran Abs Auto 0.08 X10*3/uL (0.00-0.03); Imm Gran Pct Auto 0.7 % (0.0-0.4); Lymphocytes Absolute Auto 1.2 X10*3/uL (1.2-4.9); Lymphocytes Percent Auto 10.2 % (20-40); Mean Corpuscular HGB Conc 31.8 g/dl (31.0-36.0); Mean Corpuscular Hemoglobin 26.5 pg (27.0-33.0); Mean Corpuscular Volume 83.5 fL (80.0-98.0); Mean Platelet Volume 11.2 fL (9.4-12.4); Monocytes Absolute Auto 0.3 X10*3/uL (0.1-1.2); Monocytes Percent Auto 2.6 % (2-11); NRBC Pct Auto 0.3 /100WBC (0.0-0.2); Neutrophils Absolute Auto 9.8 x10*3/uL (2.0-8.3); Platelet Count 260 X10*3/uL (160-400); Red Blood Count 3.81 X10*6/uL (4.60-5.80); Red Cell Distribution Width 20.7 % (11.0-16.0); White Blood Count 11.6 X10*3/uL (4.8-10.8)
[2022-09-30 05:14] LABS: Albumin Level 3.1 g/dL (3.5-5.0); Anion Gap 14 (12-20); Blood Urea Nitrogen 24 mg/dL (9-16); Calcium 7.6 mg/dL (8.4-10.2); Carbon Dioxide 35 mmol/L (22-29); Chloride 109 mmol/L (96-108); Creatinine Clr Calc Pharmacy 67.4; Estimated Glomerular Filt Rate 59; Glucose Random 125 mg/dL (60-115); Magnesium 1.7 mg/dL (1.6-2.6); Phosphorus 1.5 mg/dL (2.7-4.5); Potassium 2.7 mmol/L (3.3-5.1); Sodium 155 mmol/L (135-145)
[2022-09-30 05:27] LABS: Glucose, Whole Blood 134 mg/dL (60-115)
[2022-09-30] MEDS: Pantoprazole Sodium 40 MG/10 ML VIAL IVPUSH (05:37)
[2022-09-30] MEDS: Potassium Phosphate/NS 15 MMOL/250 ML PLAST..BAG 62.5 MMOL IV (05:53)
[2022-09-30] MEDS: Potassium Chloride/H20 40 MEQ/100 ML PIGGYBACK 50 MEQ IV (05:53)
--- NOTE | 2022-09-30 06:45 | HE.PHANOTE ---
Vancomycin Dosing Patient renal function improving. Will increase dose to vancomycin 1250 mg Q24H. Expected AUC 486 with a trough of 12.6. Level scheduled fro tomorrow 10/01 @ 0500. Prior to 3rd dose to access for patient safety has patient in [facility]. Brooke Durand, PharmD
--- NOTE | 2022-09-30 06:58 | PM.PNGS ---
Subjective Subjective Date of Service: 09/30/22 Interval history: The patient remains intubated and sedated. Per nursing, patient has had some continued stool via rectal tube, no blood in no watery diarrhea. Physical Exam Vital Signs: Vital Signs: Last Vital Signs Temp 100.2 F 09/30/22 06:00 Pulse 64 09/30/22 06:00 Resp 18 09/30/22 06:00 BP 154/65 H 09/30/22 06:00 Pulse Ox 99 09/30/22 06:00 O2 Del Method 09/30/22 06:00 O2 Flow Rate 2 09/27/22 09:00 FiO2 25 09/30/22 06:00 BMI result Body Mass Index 35.5 On exam, there is no obvious change from yesterday The patient's abdomen remains nondistended. It is soft. No guarding is appreciated but his sedation precludes thorough assessment Objective Data Active Medications Chlorhexidine Gluconate (Chlorhexidine Gluc Oral Rinse 15 Ml Mouthwash) 15 ml BUCCAL TID [facility] Last Admin: 09/29/22 19:19 Dose: 15 ml Documented By: MISSY Enoxaparin Sodium (Enoxaparin Sodium 80 Mg/0.8 Ml Syringe) 80 mg 1 mg/kg (80 mg) SUBCUT Q12H [facility] Last Admin: 09/30/22 00:12 Dose: 80 mg Documented By: MISSY Glucose (Glucose Gel 15 Gm Gel..Gram.) 15 gm PO Q15M PRN; Protocol PRN Reason: per Hypoglycemia Standing Ord. Glucose (Glucose Gel 15 Gm Gel..Gram.) 15 gm PO Q15M PRN; Protocol PRN Reason: per Hypoglycemia Standing Ord. Thiamine HCl 100 mg/ Sodium (Chloride) 101 mls @ 202 mls/hr IV DAILY [facility] Last Infusion: 09/29/22 08:25 Dose: 0 mls/hr Documented By: PHYLLIS Dextrose (D10) 250 mls @ 750 mls/hr IV Q15M PRN; Protocol PRN Reason: per Hypoglycemia Standing Ord. Propofol (Diprivan) 1,000 mg in 100 mls @ 0 mls/hr IVCONT .Q0M [facility]; Protocol Last Admin: 09/30/22 05:59 Dose: 30 mcg/kg/min, 20 mls/hr Documented By: MISSY Norepinephrine Bitartrate (Levophed) 8 mg in 250 mls @ 0 mls/hr IVCONT .Q0M [facility]; Protocol Last Titration: 09/29/22 09:05 Dose: 0 mcg/kg/min, 0 mls/hr Documented By: PHYLLIS Piperacillin Sod/Tazobactam (Sod 3.375 gm/ Sodium Chloride) 50 mls @ 100 mls/hr IV Q6H [facility] Last Infusion: 09/30/22 06:39 Dose: 0 mls/hr Documented By: MISSY Potassium Phosphate (Kphos) 15 mmol in 250 mls @ 62.5 mls/hr IV ONCE ONE Stop: 09/30/22 09:24 Last Admin: 09/30/22 05:53 Dose: 62.5 mls/hr Documented By: MISSY Potassium Chloride (Potassium Chloride/H20) 40 meq in 100 mls @ 50 mls/hr IV ONCE ONE Stop: 09/30/22 07:25 Last Admin: 09/30/22 05:53 Dose: 50 mls/hr Documented By: MISSY Vancomycin HCl 1,000 mg/ (Sodium Chloride) 250 mls @ 166.667 mls/hr IV Q24H [facility] Insulin Human Lispro (Insulin Lispro 100 Unit/Ml 3 Ml Vial) 0 unit SUBCUT Q6H [facility]; Protocol Last Admin: 09/30/22 05:29 Dose: Not Given Documented By: MISSY Non-Admin Reason: No Insulin Coverage Lactic Acid (Ammonium Lactate 12 % Cream 140 Gm Tube) 1 appl TOPICAL DAILY [facility]; Protocol Last Admin: 09/29/22 07:38 Dose: 1 appl Documented By: PHYLLIS Metoprolol Tartrate (Metoprolol Tartrate 5 Mg/5 Ml Vial) 5 mg IVPUSH Q6H [facility] Last Admin: 09/30/22 06:47 Dose: Not Given Documented By: FREIDA Non-Admin Reason: Patient Condition Contraindication Nystatin (Nystatin Powder 15 Gm Bottle) 1 appl TOPICAL BID [facility]; Protocol Last Admin: 09/29/22 19:19 Dose: 1 appl Documented By: MISSY Pantoprazole Sodium (Pantoprazole Sodium 40 Mg/10 Ml Vial) 40 mg IVPUSH DAILY@0630 [facility] Last Admin: 09/30/22 05:37 Dose: 40 mg Documented By: MISSY Pharmacy Consult (Consult Rx Vancomycin Dosing) 1 each MISCELLANE DAILY PRN PRN Reason: Consult order Sodium Chloride (0.9 % Sodium Chloride Flush 3 Ml Sy[facility]) [facility] Admin: 09/30/22 00:11 Dose: 3 ml Documented By: MISSY Labs 09/30/22 04:31 09/30/22 04:31 Labs: Laboratory Results - last 24 hr 09/29/22 09/29/22 09/29/22 07:47 08:40 08:40 MCV MCH MCHC RDW Plt Count MPV Immature Gran % (Auto) Neut % (Auto) Lymph % (Auto) Love % (Auto) Eos % (Auto) Baso % (Auto) Lymph # (Auto) Love # (Auto) Eos # (Auto) Baso # (Auto) Abs Immat Gran (auto) Absolute Neuts (auto) Absolute Nucleated RBC Nucleated RBC % (auto) VBG pH VBG pCO2 VBG pO2 VBG HCO3 VBG O2 Saturation VBG Base Excess Anion Gap 23 H Estim Creat Clear Calc 54.7 Estimated GFR 46 POC Glucose Random Glucose 177 H Estimat Average Glucose 269 Hemoglobin A1c % 11.0 Lactic Acid F/U @ 4Hr 3.5 H* Calcium 7.9 L Phosphorus Magnesium Total Bilirubin 3.6 H AST 243 H ALT 80 H Alkaline Phosphatase 248 H Total Protein 5.9 L Albumin 3.7 09/29/22 09/29/22 09/29/22 08:46 12:05 17:42 MCV MCH MCHC RDW Plt Count MPV Immature Gran % (Auto) Neut % (Auto) Lymph % (Auto) Love % (Auto) Eos % (Auto) Baso % (Auto) Lymph # (Auto) Love # (Auto) Eos # (Auto) Baso # (Auto) Abs Immat Gran (auto) Absolute Neuts (auto) Absolute Nucleated RBC Nucleated RBC % (auto) VBG pH 7.51 H VBG pCO2 37 VBG pO2 57 VBG HCO3 30 H VBG O2 Saturation 85.0 VBG Base Excess 7.5 Anion Gap Estim Creat Clear Calc Estimated GFR POC Glucose 158 H 164 H Random Glucose Estimat Average Glucose Hemoglobin A1c % Lactic Acid F/U @ 4Hr Calcium Phosphorus Magnesium Total Bilirubin AST ALT Alkaline Phosphatase Total Protein Albumin 09/29/22 09/30/22 09/30/22 23:46 04:31 04:31 MCV 83.5 MCH 26.5 L MCHC 31.8 RDW 20.7 H Plt Count 260 MPV 11.2 Immature Gran % (Auto) 0.7 H Neut % (Auto) 84.0 H Lymph % (Auto) 10.2 L Love % (Auto) 2.6 Eos % (Auto) 1.8 Baso % (Auto) 0.7 Lymph # (Auto) 1.2 Love # (Auto) 0.3 Eos # (Auto) 0.2 Baso # (Auto) 0.1 Abs Immat Gran (auto) 0.08 H Absolute Neuts (auto) 9.8 H Absolute Nucleated RBC 0.040 H Nucleated RBC % (auto) 0.3 H VBG pH VBG pCO2 VBG pO2 VBG HCO3 VBG O2 Saturation VBG Base Excess Anion Gap 14 Estim Creat Clear Calc 67.4 Estimated GFR 59 POC Glucose 141 H Random Glucose 125 H Estimat Average Glucose Hemoglobin A1c % Lactic Acid F/U @ 4Hr Calcium 7.6 L Phosphorus 1.5 L Magnesium 1.7 Total Bilirubin AST ALT Alkaline Phosphatase Total Protein Albumin 3.1 L 09/30/22 09/30/22 04:37 05:21 MCV MCH MCHC RDW Plt Count MPV Immature Gran % (Auto) Neut % (Auto) Lymph % (Auto) Love % (Auto) Eos % (Auto) Baso % (Auto) Lymph # (Auto) Love # (Auto) Eos # (Auto) Baso # (Auto) Abs Immat Gran (auto) Absolute Neuts (auto) Absolute Nucleated RBC Nucleated RBC % (auto) VBG pH 7.58 H VBG pCO2 35 VBG pO2 40 VBG HCO3 34 H VBG O2 Saturation 62.0 VBG Base Excess 11.7 Anion Gap Estim Creat Clear Calc Estimated GFR POC Glucose 134 H Random Glucose Estimat Average Glucose Hemoglobin A1c % Lactic Acid F/U @ 4Hr Calcium Phosphorus Magnesium Total Bilirubin AST ALT Alkaline Phosphatase Total Protein Albumin Microbiology Microbiology Results: Microbiology 09/28/22 21:14 Blood Culture - Preliminary Blood - Venous No growth after 24 hours. 09/28/22 21:14 Blood Culture - Preliminary Blood - Venous No growth after 24 hours. 09/28/22 21:58 Gram Stain - Final Sputum - Suctioned Sputum Culture - Preliminary Culture in progress. Procedures Date of Service Date of Service: 09/30/22 Progress Note: A&P Assessment and plan (1) Embolic infarction: Status: Acute (2) Acute respiratory failure with hypoxia: Status: Acute (3) Metabolic acidosis: Status: Acute (4) Acute CVA (cerebrovascular accident): Status: Acute (5) Alcoholism: Status: Acute (6) Acute encephalopathy: Status: Acute (7) Encephalopathy: Status: Acute Plan Physical exam is limited by the patient's intubation and comorbidities. He does not appear to have abdominal distention or surgical intra-abdominal pathology at this time. Continue present management including antibiotics. If he starts experiencing watery diarrhea or bloody diarrhea, repeat CT to assess for intestinal infarction or emboli would be in order. Please call me if he has significant abdominal distension to reassess the patient. Again, CT would be required. Time Spent With Patient Time: Total time managing care of this patient today ____ minutes. Quality Stroke Does the patient have a stroke diagnosis?: No VTE Prior VTE?: No VTE Risk Level:: Medical - moderate - high VTE Device Contraindication: Treatment Not Indicated VTE Drug Contraindication: N/A - Med Ordered
[2022-09-30] MEDS: Thiamine HCL 100 MG in 0.9 % Sodium Chloride 100 ML 202 MG IV (07:44)
[2022-09-30] MEDS: vancomycin HCL 1,250 MG in 0.9 % Sodium Chloride 250 ML 166.67 MG IV (07:52)
[2022-09-30] MEDS: Chlorhexidine Gluc Oral Rinse 15 ML MOUTHWASH BUCCAL ×3 (08:01→19:36)
[2022-09-30] MEDS: Ammonium Lactate 12 % Cream 140 GM TUBE 1 APPL TOPICAL (08:19)
[2022-09-30] MEDS: Nystatin Powder 15 GM BOTTLE 1 APPL TOPICAL ×2 (08:19→19:36)
[2022-09-30] MEDS: propofoL 1,000 MG/100 ML VIAL 13.33 MG IVCONT ×3 (10:26→21:25)
--- NOTE | 2022-09-30 10:43 | MHC.CLN ---
F/U DISCUSSED WITH TEAM AT [facility]. PATIENT INTUBATED AND SEDATED. START TUBE FEEDING TODAY. TUBE FEED GLUCERNA AT MAX GOAL RATE 60 ML PER HOUR. FLUSH 240 ML WATER Q 4 HOURS. PROVIDES: 1792 KCALS WITH SEDATION (23.8 KCALS/KG IBW); 60 G PROTEIN (.8 G/KG IBW); 2668 ML FREE WATER FROM FORMULA AND FLUSH (35.4 ML/KG IBW). MONITOR TUBE FEED TOLERANCE AND LABS. FOLLOW WITH TEAM FOR PLAN OF CARE.
[2022-09-30 11:39] LABS: Glucose, Whole Blood 127 mg/dL (60-115)
--- NOTE | 2022-09-30 13:47 | MHC.SLORD ---
Addendum entered and electronically signed by Alexandria Alberto MA, CCC-S[employer]PARER 09/30/22 14:07: D.S. Original Note: Speech Language Pathology Order Status: Per chart review, pt is intubated and sedated on this date. S[employer] ME[employer]PARER to continue to follow.
--- NOTE | 2022-09-30 14:01 | P.PNCC_ITS ---
Subjective Subjective Date of Service: 09/30/22 Interval History: 71-year-old gentleman with underlying history of systolic heart failure left and a right-sided, diabetes mellitus, AFib, hypertension admitted on 3 long-time 23 no with alcohol abuse/alcohol withdrawal further complicated by acute embolic infarct with hemorrhagic conversion, acute hypercapnic respiratory failure requiring intubation and ventilatory support. Patient respiratory status improved with diuresis and he was extubated on 09/24/2022. However, he remains significantly encephalopathic and continues to fail his swallow evaluation and his hospital course further complicated by recurrent hypernatremia and ongoing congestive heart failure. Overnight 09/28/2022 with development of respiratory distress secondary to metabolic lactic acidosis requiring intubation and ventilatory and vasopressor support. Also developed anuria. Blood cultures sent, started on empiric antibiotics. CT abdomen / pelvis with what appears to be embolic splenic and renal infarcts. Likely transient gastrointestinal ischemia. evaluated by General surgery and deemed not to require surgical intervention at this time. No events overnight. Urine output is improving. Critical Care Time (minutes): 45 Physical Exam Vital Signs: Vital Signs: Last Vital Signs Temp 97.9 F 09/30/22 13:00 Pulse 71 09/30/22 13:00 Resp 18 09/30/22 13:00 BP 155/74 H 09/30/22 13:00 Pulse Ox 99 09/30/22 13:00 O2 Del Method 09/30/22 13:00 O2 Flow Rate 2 09/27/22 09:00 FiO2 25 09/30/22 13:00 BMI result Body Mass Index 35.5 Const: General: no acute distress and other ( Sedated on the vent) Nutritional Appearance: obese Eyes: Sclerae: sclerae normal EOM: EOMs intact bilaterally Neck: Neck: Yes no lymphadenopathy, Yes trachea midline and Yes supple Resp: Auscultation: crackles ( diffuse bilateral) Cardio: Rate: regular rate Rhythm: abnormal rhythm irregularly irregular Heart sounds: no gallops, no murmurs and no rubs GI: Palpation (GI): Soft to palpation and Other GI palpation findings present ( Nontender) Auscultation: normal bowel sounds Extrem: General: No clubbing, No cyanosis and Yes edema ( 1+ bilateral) Objective Data Labs 09/30/22 04:31 09/30/22 04:31 Labs: Laboratory Results - last 24 hr 03/09/29/22 09/30/22 17:42 23:46 04:31 WBC 11.6 H RBC 3.81 L Hgb 10.1 L Hct 31.8 L MCV 83.5 MCH 26.5 L MCHC 31.8 RDW 20.7 H Plt Count 260 MPV 11.2 Immature Gran % (Auto) 0.7 H Neut % (Auto) 84.0 H Lymph % (Auto) 10.2 L [place] % (Auto) 2.6 Eos % (Auto) 1.8 Baso % (Auto) 0.7 Lymph # (Auto) 1.2 [place] # (Auto) 0.3 Eos # (Auto) 0.2 Baso # (Auto) 0.1 Abs Immat Gran (auto) 0.08 H Absolute Neuts (auto) 9.8 H Absolute Nucleated RBC 0.040 H Nucleated RBC % (auto) 0.3 H VBG pH VBG pCO2 VBG pO2 VBG HCO3 VBG O2 Saturation VBG Base Excess Sodium Potassium Chloride Carbon Dioxide Anion Gap BUN Creatinine Estim Creat Clear Calc Estimated GFR POC Glucose 164 H 141 H Random Glucose Calcium Phosphorus Magnesium Albumin 09/30/22 09/30/22 09/30/22 04:31 04:37 05:21 WBC RBC Hgb Hct MCV MCH MCHC RDW Plt Count MPV Immature Gran % (Auto) Neut % (Auto) Lymph % (Auto) [place] % (Auto) Eos % (Auto) Baso % (Auto) Lymph # (Auto) [place] # (Auto) Eos # (Auto) Baso # (Auto) Abs Immat Gran (auto) Absolute Neuts (auto) Absolute Nucleated RBC Nucleated RBC % (auto) VBG pH 7.58 H VBG pCO2 35 VBG pO2 40 VBG HCO3 34 H VBG O2 Saturation 62.0 VBG Base Excess 11.7 Sodium 155 H Potassium 2.7 L D Chloride 109 H Carbon Dioxide 35 H Anion Gap 14 BUN 24 H Creatinine 1.21 Estim Creat Clear Calc 67.4 Estimated GFR 59 POC Glucose 134 H Random Glucose 125 H Calcium 7.6 L Phosphorus 1.5 L Magnesium 1.7 Albumin 3.1 L 09/30/22 11:36 WBC RBC Hgb Hct MCV MCH MCHC RDW Plt Count MPV Immature Gran % (Auto) Neut % (Auto) Lymph % (Auto) [place] % (Auto) Eos % (Auto) Baso % (Auto) Lymph # (Auto) [place] # (Auto) Eos # (Auto) Baso # (Auto) Abs Immat Gran (auto) Absolute Neuts (auto) Absolute Nucleated RBC Nucleated RBC % (auto) VBG pH VBG pCO2 VBG pO2 VBG HCO3 VBG O2 Saturation VBG Base Excess Sodium Potassium Chloride Carbon Dioxide Anion Gap BUN Creatinine Estim Creat Clear Calc Estimated GFR POC Glucose 127 H Random Glucose Calcium Phosphorus Magnesium Albumin Microbiology Microbiology Results: Microbiology 09/28/22 21:58 Sputum - Suctioned Gram Stain - Final 09/28/22 21:58 Sputum - Suctioned Sputum Culture - Final Strep agalactiae (Grp B) 09/28/22 21:14 Blood - Venous Blood Culture - Preliminary No growth after 24 hours. 09/28/22 21:14 Blood - Venous Blood Culture - Preliminary No growth after 24 hours. 09/21/22 04:00 Sputum - Suctioned Gram Stain - Final 09/21/22 04:00 Sputum - Suctioned Sputum Culture - Final No growth. 09/16/22 14:56 Blood - Venous Blood Culture - Final No growth after 5 days. 09/16/22 14:56 Blood - Venous Blood Culture - Final No growth after 5 days. Progress Note: A&P Assessment and plan (1) Acute respiratory failure with hypoxia: Status: Acute (2) Embolic infarction: Status: Acute (3) Acute on chronic clinical systolic heart failure: Status: Acute (4) Acute hypernatremia: Status: Acute (5) Ischemic congestive cardiomyopathy: Status: Acute (6) Acute kidney injury: Status: Acute (7) Acute CVA (cerebrovascular accident): Status: Acute (8) Atrial fibrillation: Status: Acute (9) Chronic systolic CHF (congestive heart failure): Status: Acute (10) Diabetes: Status: Acute Plan Assessment: 71-year-old gentleman admitted with alcohol intoxication and acute embolic stroke complicated by hemorrhagic conversion, delirium tremens, acute respiratory failure, acute on chronic systolic congestive heart failure, residual encephalopathy, and dysphagia Plan: Neuro: Acute ischemic stroke with hemorrhagic conversion, now worried residual encephalopathy and persistent dysphagia. Family discussion about PEG placement ongoing. Cardiac: Acute on chronic biventricular systolic congestive heart failure. Underlying AFib On full-dose Lovenox. Concern for mural thrombus with multiple embolic events including renal and splenic infarcts. 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 Cardiology service care appreciated. Pulmonary: acute respiratory failure on the background of metabolic acidosis requiring ventilatory support. Continue to titrate off as tolerated. Renal: acute renal failure, anuria improved. Continue to monitor renal indices and urine output. Hypernatremia, started on free water boluses. Endo: No acute issues. Underlying diabetes mellitus. GI: likely transient gastrointestinal ischemia from an embolic event resulting in metabolic acidosis. General surgery service care appreciated. No plan for procedural intervention at this time. ID: Hypotension / end-organ damage / elevated lactate are likely secondary to gastrointestinal ischemia and not sepsis. Blood cultures are pending. Empirically covered with broad-spectrum antibiotics. Heme/Onc: No acute issues. Psych: No acute issues. Miscellaneous: Overall poor clinical prognosis, discussions of goals of care ongoing with the family. Prophylaxis: Lovenox, ppi Diet: Tube feeds Critical care time spent: 45 minutes Quality Stroke Does the patient have a stroke diagnosis?: No VTE Prior VTE?: No VTE Risk Level:: Medical - moderate - high VTE Device Contraindication: Treatment Not Indicated VTE Drug Contraindication: N/A - Med Ordered
[2022-09-30 17:49] LABS: Glucose, Whole Blood 117 mg/dL (60-115)
[2022-09-30 19:01] LABS: Anion Gap 16 (12-20); Blood Urea Nitrogen 19 mg/dL (9-16); Calcium 7.4 mg/dL (8.4-10.2); Carbon Dioxide 32 mmol/L (22-29); Chloride 110 mmol/L (96-108); Creatinine Clr Calc Pharmacy 73.7; Estimated Glomerular Filt Rate > 60; Glucose Random 121 mg/dL (60-115); Sodium 155 mmol/L (135-145)
[2022-09-30] MEDS: Potassium Chloride/H20 40 MEQ/100 ML PIGGYBACK 100 MEQ IV (19:36)
[2022-09-30 23:59] LABS: Glucose, Whole Blood 135 mg/dL (60-115)
[2022-10-01] VITALS (31 sets, daily range): BP systolic 119–165; BP diastolic 53–89; PULSE 61–77; RESP 11–19; TEMP 35–38.2; O2SAT 94–99; BMI 36.2
[2022-10-01] MEDS: Piperacillin Sodium/Tazobactam 3.375 GM in 0.9 % Sodium Chloride 50 ML IV ×4 (00:05→17:40)
[2022-10-01] MEDS: Enoxaparin Sodium 80 MG/0.8 ML SYRINGE SUBCUT ×2 (01:05→13:18)
[2022-10-01] MEDS: propofoL 1,000 MG/100 ML VIAL 13.33 MG IVCONT ×2 (02:24→17:20)
[2022-10-01 05:02] LABS: VBG Base Excess 8.2 mmol/L; VBG HCO3 30 mmol/L (22-26); VBG pCO2 34 mmHg; VBG pH 7.55 (7.32-7.43); VBG pO2 45 mmHg
[2022-10-01 05:03] LABS: MANUAL DIFF FLAG NO
[2022-10-01 05:09] LABS: Basophils Percent Auto 0.4 % (0-2); Eosinophils Absolute Auto 0.4 X10*3/uL (0.0-0.4); Eosinophils Percent Auto 4.6 % (0-4); Hematocrit 33.7 % (42.0-52.0); Hemoglobin 10.6 g/dl (14.0-18.0); Imm Gran Abs Auto 0.05 X10*3/uL (0.00-0.03); Imm Gran Pct Auto 0.6 % (0.0-0.4); Lymphocytes Absolute Auto 0.9 X10*3/uL (1.2-4.9); Lymphocytes Percent Auto 10.6 % (20-40); Mean Corpuscular HGB Conc 31.5 g/dl (31.0-36.0); Mean Corpuscular Hemoglobin 26.8 pg (27.0-33.0); Mean Corpuscular Volume 85.3 fL (80.0-98.0); Mean Platelet Volume 11.1 fL (9.4-12.4); Monocytes Absolute Auto 0.2 X10*3/uL (0.1-1.2); Monocytes Percent Auto 2.7 % (2-11); NRBC Pct Auto 0.5 /100WBC (0.0-0.2); Neutrophils Absolute Auto 6.7 x10*3/uL (2.0-8.3); Neutrophils Percent Auto 81.1 % (45-73); Platelet Count 254 X10*3/uL (160-400); Red Blood Count 3.95 X10*6/uL (4.60-5.80); Red Cell Distribution Width 21.3 % (11.0-16.0); White Blood Count 8.2 X10*3/uL (4.8-10.8)
[2022-10-01 05:30] LABS: Venous Blood Gas Refer to POC result
[2022-10-01 05:35] LABS: Vancomycin Random 8.6 mcg/mL (15-20)
[2022-10-01 05:39] LABS: Albumin Level 2.8 g/dL (3.5-5.0); Anion Gap 14 (12-20); Blood Urea Nitrogen 17 mg/dL (9-16); Calcium 7.4 mg/dL (8.4-10.2); Carbon Dioxide 31 mmol/L (22-29); Chloride 111 mmol/L (96-108); Creatinine Clr Calc Pharmacy 74.3; Estimated Glomerular Filt Rate > 60; Glucose Random 142 mg/dL (60-115); Magnesium 1.6 mg/dL (1.6-2.6); Phosphorus 2.6 mg/dL (2.7-4.5); Sodium 153 mmol/L (135-145)
[2022-10-01] MEDS: Pantoprazole Sodium 40 MG/10 ML VIAL IVPUSH (05:55)
[2022-10-01] MEDS: Potassium Chloride/H20 40 MEQ/100 ML PIGGYBACK 100 MEQ IV (05:56)
[2022-10-01] MEDS: Magnesium Sulfate/D5W 1 GM/100 ML PIGGYBACK IV (05:57)
--- NOTE | 2022-10-01 06:55 | P.PNGS_ITS ---
Subjective Subjective Date of Service: 10/01/22 Interval history: Mentation remains unchanged since yesterday. Patient is intubated and sedated. His abdomen remains nondistended and soft. No blood or diarrhea is noted in the rectal tube. His tube feed has been increased to 40 cc/hour with no intolerance, bloating or concern. Physical Exam Vital Signs: Vital Signs: Last Vital Signs Temp 100.0 F 10/01/22 06:00 Pulse 72 10/01/22 06:00 Resp 18 10/01/22 06:00 BP 164/80 H 10/01/22 06:00 Pulse Ox 95 10/01/22 06:00 O2 Del Method 10/01/22 06:00 O2 Flow Rate 25 09/30/22 15:00 FiO2 25 10/01/22 06:00 BMI result Body Mass Index 36.2 He is intubated and sedated His abdomen is nondistended and is soft. No guarding is appreciated Objective Data Active Medications Chlorhexidine Gluconate (Chlorhexidine Gluc Oral Rinse 15 Ml Mouthwash) 15 ml BUCCAL TID [facility] Last Admin: 09/30/22 19:36 Dose: 15 ml Documented By: SKYLA Enoxaparin Sodium (Enoxaparin Sodium 80 Mg/0.8 Ml Syringe) 80 mg 1 mg/kg (80 mg) SUBCUT Q12H [facility] Last Admin: 10/01/22 01:05 Dose: 80 mg Documented By: SKYLA Glucose (Glucose Gel 15 Gm Gel..Gram.) 15 gm PO Q15M PRN; Protocol PRN Reason: per Hypoglycemia Standing Ord. Glucose (Glucose Gel 15 Gm Gel..Gram.) 15 gm PO Q15M PRN; Protocol PRN Reason: per Hypoglycemia Standing Ord. Thiamine HCl 100 mg/ Sodium (Chloride) 101 mls @ 202 mls/hr IV DAILY [facility] Last Infusion: 09/30/22 08:27 Dose: 0 mls/hr Documented By: FREIDA Dextrose (D10) 250 mls @ 750 mls/hr IV Q15M PRN; Protocol PRN Reason: per Hypoglycemia Standing Ord. Propofol (Diprivan) 1,000 mg in 100 mls @ 0 mls/hr IVCONT .Q0M [facility]; Protocol Last Admin: 10/01/22 02:24 Dose: 20 mcg/kg/min, 13.33 mls/hr Documented By: SKYLA Norepinephrine Bitartrate (Levophed) 8 mg in 250 mls @ 0 mls/hr IVCONT .Q0M [facility]; Protocol Last Titration: 09/30/22 17:55 Dose: 0 mcg/kg/min, 0 mls/hr Documented By: FREIDA Piperacillin Sod/Tazobactam (Sod 3.375 gm/ Sodium Chloride) 50 mls @ 100 mls/hr IV Q6H [facility] Last Infusion: 10/01/22 06:42 Dose: 0 mls/hr Documented By: SKYLA Potassium Phosphate (Kphos) 15 mmol in 250 mls @ 62.5 mls/hr IV ONCE ONE Stop: 10/01/22 11:59 Vancomycin HCl 750 mg/ Sodium (Chloride) 265 mls @ 265 mls/hr IV Q12H [facility] Insulin Human Lispro (Insulin Lispro 100 Unit/Ml 3 Ml Vial) 0 unit SUBCUT Q6H [facility]; Protocol Last Admin: 10/01/22 06:00 Dose: Not Given Documented By: SKYLA Non-Admin Reason: No Insulin Coverage Lactic Acid (Ammonium Lactate 12 % Cream 140 Gm Tube) 1 appl TOPICAL DAILY [facility]; Protocol Last Admin: 09/30/22 08:19 Dose: 1 appl Documented By: FREIDA Metoprolol Tartrate (Metoprolol Tartrate 5 Mg/5 Ml Vial) 5 mg IVPUSH Q6H PRN PRN Reason: tachycardia Nystatin (Nystatin Powder 15 Gm Bottle) 1 appl TOPICAL BID [facility]; Protocol Last Admin: 09/30/22 19:36 Dose: 1 appl Documented By: SKYLA Pantoprazole Sodium (Pantoprazole Sodium 40 Mg/10 Ml Vial) 40 mg IVPUSH DAILY@0630 [facility] Last Admin: 10/01/22 05:55 Dose: 40 mg Documented By: SKYLA Pharmacy Consult (Consult Rx Vancomycin Dosing) 1 each MISCELLANE DAILY PRN PRN Reason: Consult order Sodium Chloride (0.9 % Sodium Chloride Flush 3 Ml Syringe) 3 ml IVFLUSH QSHIFT [facility] Last Admin: 10/01/22 00:14 Dose: Not Given Documented By: SKYLA Non-Admin Reason: IV Running Labs 10/01/22 04:50 10/01/22 04:50 Labs: Laboratory Results - last 24 hr 09/30/22 09/30/22 09/30/22 11:36 17:45 18:20 MCV MCH MCHC RDW Plt Count MPV Immature Gran % (Auto) Neut % (Auto) Lymph % (Auto) [place] % (Auto) Eos % (Auto) Baso % (Auto) Lymph # (Auto) [place] # (Auto) Eos # (Auto) Baso # (Auto) Abs Immat Gran (auto) Absolute Neuts (auto) Absolute Nucleated RBC Nucleated RBC % (auto) VBG pH VBG pCO2 VBG pO2 VBG HCO3 VBG O2 Saturation VBG Base Excess Anion Gap 16 Estim Creat Clear Calc 73.7 Estimated GFR > 60 POC Glucose 127 H 117 H Random Glucose 121 H Calcium 7.4 L Phosphorus Magnesium Albumin Random Vancomycin 09/30/22 10/01/22 10/01/22 23:56 04:50 04:50 MCV 85.3 MCH 26.8 L MCHC 31.5 RDW 21.3 H Plt Count 254 MPV 11.1 Immature Gran % (Auto) 0.6 H Neut % (Auto) 81.1 H Lymph % (Auto) 10.6 L [place] % (Auto) 2.7 Eos % (Auto) 4.6 H Baso % (Auto) 0.4 Lymph # (Auto) 0.9 L [place] # (Auto) 0.2 Eos # (Auto) 0.4 Baso # (Auto) 0.0 Abs Immat Gran (auto) 0.05 H Absolute Neuts (auto) 6.7 Absolute Nucleated RBC 0.040 H Nucleated RBC % (auto) 0.5 H VBG pH VBG pCO2 VBG pO2 VBG HCO3 VBG O2 Saturation VBG Base Excess Anion Gap Estim Creat Clear Calc Estimated GFR POC Glucose 135 H Random Glucose Calcium Phosphorus Magnesium Albumin Random Vancomycin 8.6 L 10/01/22 10/01/22 04:50 04:54 MCV MCH MCHC RDW Plt Count MPV Immature Gran % (Auto) Neut % (Auto) Lymph % (Auto) [place] % (Auto) Eos % (Auto) Baso % (Auto) Lymph # (Auto) [place] # (Auto) Eos # (Auto) Baso # (Auto) Abs Immat Gran (auto) Absolute Neuts (auto) Absolute Nucleated RBC Nucleated RBC % (auto) VBG pH 7.55 H VBG pCO2 34 VBG pO2 45 VBG HCO3 30 H VBG O2 Saturation 66.0 VBG Base Excess 8.2 Anion Gap 14 Estim Creat Clear Calc 74.3 Estimated GFR > 60 POC Glucose Random Glucose 142 H Calcium 7.4 L Phosphorus 2.6 L Magnesium 1.6 Albumin 2.8 L Random Vancomycin Microbiology Microbiology Results: Microbiology 09/28/22 21:14 Blood Culture - Preliminary Blood - Venous No growth after 48 hours. 09/28/22 21:14 Blood Culture - Preliminary Blood - Venous No growth after 48 hours. 09/28/22 21:58 Gram Stain - Final Sputum - Suctioned Sputum Culture - Final Strep agalactiae (Grp B) Procedures Date of Service Date of Service: 10/01/22 Progress Note: A&P Assessment and plan (1) Embolic infarction: Status: Acute (2) Diabetes: Status: Acute (3) Acute respiratory failure with hypoxia: Status: Acute (4) Acute on chronic clinical systolic heart failure: Status: Acute (5) Acute hypernatremia: Status: Acute (6) Ischemic congestive cardiomyopathy: Status: Acute (7) Dry skin dermatitis: Status: Acute (8) Alcoholism: Status: Acute (9) Encephalopathy: Status: Acute (10) Acute CVA (cerebrovascular accident): Status: Acute Plan Based on available data, there does not appear to be infarction of the small or large bowel. Can advanced tube feeds ad trevin per primary service. White blood cell count has normalized which is reassuring regarding bowel inf arction concerns. Infarcted kidney and spleen should resolve on its own but be aware that repeat CT in 2-8 weeks can demonstrate benign cystic collections that are typically of no consequence. Please call with surgical questions. Time Spent With Patient Time: Total time managing care of this patient today ____ minutes. Quality Stroke Does the patient have a stroke diagnosis?: No VTE Prior VTE?: No VTE Risk Level:: Medical - moderate - high VTE Device Contraindication: Treatment Not Indicated VTE Drug Contraindication: N/A - Med Ordered
[2022-10-01] MEDS: vancomycin HCL 750 MG in 0.9 % Sodium Chloride 250 ML 265 MG IV ×2 (07:42→17:55)
[2022-10-01] MEDS: 0.9 % Sodium Chloride Flush 3 ML SYRINGE IVFLUSH ×3 (07:42→23:54)
[2022-10-01] MEDS: Thiamine HCL 100 MG in 0.9 % Sodium Chloride 100 ML 202 MG IV (07:51)
[2022-10-01] MEDS: Potassium Phosphate/NS 15 MMOL/250 ML PLAST..BAG 62.5 MMOL IV (07:56)
[2022-10-01] MEDS: Ammonium Lactate 12 % Cream 140 GM TUBE 1 APPL TOPICAL (08:00)
[2022-10-01] MEDS: Nystatin Powder 15 GM BOTTLE 1 APPL TOPICAL ×2 (08:00→20:06)
[2022-10-01] MEDS: Chlorhexidine Gluc Oral Rinse 15 ML MOUTHWASH BUCCAL ×3 (08:01→20:06)
[2022-10-01] MEDS: propofoL 1,000 MG/100 ML VIAL 20 MG IVCONT ×3 (08:20→22:36)
[2022-10-01] MEDS: Albumin Human 25 % 100 ML IV ×3 (08:53→20:00)
--- NOTE | 2022-10-01 11:51 | PM.CCPN ---
Subjective Subjective Date of Service: 10/01/22 Interval History: 71-year-old gentleman with underlying history of systolic heart failure left and a right-sided, diabetes mellitus, AFib, hypertension admitted on 3 long-time 23 no with alcohol abuse/alcohol withdrawal further complicated by acute embolic infarct with hemorrhagic conversion, acute hypercapnic respiratory failure requiring intubation and ventilatory support. Patient respiratory status improved with diuresis and he was extubated on 09/24/2022. However, he remains significantly encephalopathic and continues to fail his swallow evaluation and his hospital course further complicated by recurrent hypernatremia and ongoing congestive heart failure. Overnight 09/28/2022 with development of respiratory distress secondary to metabolic lactic acidosis requiring intubation and ventilatory and vasopressor support. Also developed anuria. Blood cultures sent, started on empiric antibiotics. CT abdomen / pelvis with what appears to be embolic splenic and renal infarcts. Likely transient gastrointestinal ischemia. Evaluated by General surgery and deemed not to require surgical intervention at this time. No events overnight. Critical Care Time (minutes): 45 Physical Exam Vital Signs: Vital Signs: Last Vital Signs Temp 99.3 F 10/01/22 11:00 Pulse 69 10/01/22 11:00 Resp 17 10/01/22 11:00 BP 155/79 H 10/01/22 11:00 Pulse Ox 95 10/01/22 11:00 O2 Del Method 10/01/22 11:00 O2 Flow Rate 25 09/30/22 15:00 FiO2 25 10/01/22 11:43 BMI result Body Mass Index 36.2 Const: General: no acute distress and other (Sedated on the vent) Eyes: Sclerae: sclerae normal EOM: EOMs intact bilaterally Neck: Neck: Yes no lymphadenopathy, Yes trachea midline and Yes supple Resp: Auscultation: crackles ( diffuse bilateral) Cardio: Rate: regular rate Rhythm: abnormal rhythm irregularly irregular Heart sounds: no gallops, no murmurs and no rubs GI: Palpation (GI): Soft to palpation and Other GI palpation findings present ( Nontender) Auscultation: normal bowel sounds Extrem: General: No clubbing, No cyanosis and Yes edema ( 1+ bilateral) Objective Data Labs 10/01/22 04:50 10/01/22 04:50 Labs: Laboratory Results - last 24 hr 09/30/22 09/30/22 09/30/22 17:45 18:20 23:56 WBC RBC Hgb Hct MCV MCH MCHC RDW Plt Count MPV Immature Gran % (Auto) Neut % (Auto) Lymph % (Auto) [place] % (Auto) Eos % (Auto) Baso % (Auto) Lymph # (Auto) [place] # (Auto) Eos # (Auto) Baso # (Auto) Abs Immat Gran (auto) Absolute Neuts (auto) Absolute Nucleated RBC Nucleated RBC % (auto) VBG pH VBG pCO2 VBG pO2 VBG HCO3 VBG O2 Saturation VBG Base Excess Sodium 155 H Potassium 3.0 L Chloride 110 H Carbon Dioxide 32 H Anion Gap 16 BUN 19 H Creatinine 1.12 Estim Creat Clear Calc 73.7 Estimated GFR > 60 POC Glucose 117 H 135 H Random Glucose 121 H Calcium 7.4 L Phosphorus Magnesium Albumin Random Vancomycin 10/01/22 10/01/22 10/01/22 04:50 04:50 04:50 WBC 8.2 RBC 3.95 L Hgb 10.6 L Hct 33.7 L MCV 85.3 MCH 26.8 L MCHC 31.5 RDW 21.3 H Plt Count 254 MPV 11.1 Immature Gran % (Auto) 0.6 H Neut % (Auto) 81.1 H Lymph % (Auto) 10.6 L [place] % (Auto) 2.7 Eos % (Auto) 4.6 H Baso % (Auto) 0.4 Lymph # (Auto) 0.9 L [place] # (Auto) 0.2 Eos # (Auto) 0.4 Baso # (Auto) 0.0 Abs Immat Gran (auto) 0.05 H Absolute Neuts (auto) 6.7 Absolute Nucleated RBC 0.040 H Nucleated RBC % (auto) 0.5 H VBG pH VBG pCO2 VBG pO2 VBG HCO3 VBG O2 Saturation VBG Base Excess Sodium 153 H Potassium 3.0 L Chloride 111 H Carbon Dioxide 31 H Anion Gap 14 BUN 17 H Creatinine 1.11 Estim Creat Clear Calc 74.3 Estimated GFR > 60 POC Glucose Random Glucose 142 H Calcium 7.4 L Phosphorus 2.6 L Magnesium 1.6 Albumin 2.8 L Random Vancomycin 8.6 L 10/01/22 04:54 WBC RBC Hgb Hct MCV MCH MCHC RDW Plt Count MPV Immature Gran % (Auto) Neut % (Auto) Lymph % (Auto) [place] % (Auto) Eos % (Auto) Baso % (Auto) Lymph # (Auto) [place] # (Auto) Eos # (Auto) Baso # (Auto) Abs Immat Gran (auto) Absolute Neuts (auto) Absolute Nucleated RBC Nucleated RBC % (auto) VBG pH 7.55 H VBG pCO2 34 VBG pO2 45 VBG HCO3 30 H VBG O2 Saturation 66.0 VBG Base Excess 8.2 Sodium Potassium Chloride Carbon Dioxide Anion Gap BUN Creatinine Estim Creat Clear Calc Estimated GFR POC Glucose Random Glucose Calcium Phosphorus Magnesium Albumin Random Vancomycin Microbiology Microbiology Results: Microbiology 09/28/22 21:14 Blood - Venous Blood Culture - Preliminary No growth after 48 hours. 09/28/22 21:14 Blood - Venous Blood Culture - Preliminary No growth after 48 hours. 09/28/22 21:58 Sputum - Suctioned Gram Stain - Final 09/28/22 21:58 Sputum - Suctioned Sputum Culture - Final Strep agalactiae (Grp B) 09/21/22 04:00 Sputum - Suctioned Gram Stain - Final 09/21/22 04:00 Sputum - Suctioned Sputum Culture - Final No growth. 09/16/22 14:56 Blood - Venous Blood Culture - Final No growth after 5 days. 09/16/22 14:56 Blood - Venous Blood Culture - Final No growth after 5 days. Progress Note: A&P Assessment and plan (1) Embolic infarction: Status: Acute (2) Acute respiratory failure with hypoxia: Status: Acute (3) Diabetes: Status: Acute (4) Acute on chronic clinical systolic heart failure: Status: Acute (5) Acute hypernatremia: Status: Acute (6) Alcoholism: Status: Acute (7) Acute CVA (cerebrovascular accident): Status: Acute (8) Atrial fibrillation: Status: Acute (9) Chronic systolic CHF (congestive heart failure): Status: Acute Plan Assessment: 71-year-old gentleman admitted with alcohol intoxication and acute embolic stroke complicated by hemorrhagic conversion, delirium tremens, acute respiratory failure, acute on chronic systolic congestive heart failure, residual encephalopathy, and dysphagia Plan: Neuro: Acute ischemic stroke with hemorrhagic conversion, now worried residual encephalopathy and persistent dysphagia. Family discussion about PEG placement ongoing. Cardiac: Acute on chronic biventricular systolic congestive heart failure. Underlying AFib On full-dose Lovenox. Concern for mural vs atrial appendage thrombus with multiple embolic events including renal and splenic infarcts. 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 Cardiology service care appreciated. Pulmonary: Acute respiratory failure on the background of metabolic acidosis requiring ventilatory support. Continue to titrate off as tolerated. Renal: Acute renal failure, anuria improved. Continue to monitor renal indices and urine output. Hypernatremia, improving on free water boluses. Endo: No acute issues. Underlying diabetes mellitus. GI: Likely transient gastrointestinal ischemia from an embolic event resulting in metabolic acidosis. General surgery service care appreciated. No plan for procedural intervention at this time. ID: Hypotension / end-organ damage / elevated lactate are likely secondary to gastrointestinal ischemia and not sepsis. Blood cultures are pending. Empirically covered with broad-spectrum antibiotics. Heme/Onc: No acute issues. Psych: No acute issues. Miscellaneous: Overall poor clinical prognosis, discussions of goals of care ongoing with the family. Prophylaxis: Lovenox, ppi Diet: Tube feeds Critical care time spent: 45 minutes Quality Stroke Does the patient have a stroke diagnosis?: No VTE Prior VTE?: No VTE Risk Level:: Medical - moderate - high VTE Device Contraindication: Treatment Not Indicated VTE Drug Contraindication: N/A - Med Ordered
[2022-10-01] MEDS: Insulin Lispro 100 UNIT/ML 3 ML VIAL SUBCUT (11:53)
[2022-10-01 11:54] LABS: Glucose, Whole Blood 166 mg/dL (60-115)
--- NOTE | 2022-10-01 12:16 | MHC.CLN ---
F/U PATIENT INTUBATED AND SEDATED. START TUBE FEEDING STARTED 09/30. TOLERATING CURRENT TUBE FEEDING, RUNNING AT 50 ML PER HOUR. ADVANCE TO MAX GOAL RATE ABLE. TUBE FEED GLUCERNA AT MAX GOAL RATE 60 ML PER HOUR. FLUSH 240 ML WATER Q 4 HOURS. PROVIDES: 1968 KCALS WITH SEDATION (26.1 KCALS/KG IBW); 60 G PROTEIN (.8 G/KG IBW); 2668 ML FREE WATER FROM FORMULA AND FLUSH (35.4 ML/KG IBW). MONITOR TUBE FEED TOLERANCE, LABS, AND SKIN INTEGRITY.. SKIN WITH DTI TO BILATERAL BUTTOCKS. FOLLOW WITH TEAM FOR PLAN OF CARE.
--- NOTE | 2022-10-01 13:06 | MHC.CM.PN ---
Per discussion w/MD at rounds: pt has poor overall prognosis d/t multiple medical issues: family still deciding on goals of care. MD to revisit issue w/pt's dtr today. CM to follow. SNF referrals updated.
--- NOTE | 2022-10-01 13:26 | PC.NURSE ---
[place] removed 12:15 10/01/22. Pt due to void 18:15. Triple lumen central line to right IJ removed 12:30
[2022-10-01 17:52] LABS: Glucose, Whole Blood 145 mg/dL (60-115)
[2022-10-01 20:04] LABS: Anion Gap 18 (12-20); Blood Urea Nitrogen 14 mg/dL (9-16); Calcium 7.4 mg/dL (8.4-10.2); Carbon Dioxide 24 mmol/L (22-29); Chloride 112 mmol/L (96-108); Creatinine Clr Calc Pharmacy 71.2; Estimated Glomerular Filt Rate > 60; Glucose Random 164 mg/dL (60-115); Potassium 4.5 mmol/L (3.3-5.1); Sodium 149 mmol/L (135-145)
[2022-10-02] VITALS (31 sets, daily range): BP systolic 109–149; BP diastolic 67–87; PULSE 69–103; RESP 17–31; TEMP 35.1–37.6; O2SAT 94–98; BMI 37.5
[2022-10-02 00:01] LABS: Glucose, Whole Blood 179 mg/dL (60-115)
[2022-10-02] MEDS: Piperacillin Sodium/Tazobactam 3.375 GM in 0.9 % Sodium Chloride 50 ML IV ×2 (00:22→05:25)
[2022-10-02] MEDS: Enoxaparin Sodium 80 MG/0.8 ML SYRINGE SUBCUT ×2 (02:03→11:38)
[2022-10-02] MEDS: Albumin Human 25 % 100 ML IV (02:04)
[2022-10-02] MEDS: propofoL 1,000 MG/100 ML VIAL 20 MG IVCONT ×6 (02:23→23:47)
[2022-10-02] MEDS: Pantoprazole Sodium 40 MG/10 ML VIAL IVPUSH (05:25)
[2022-10-02 05:26] LABS: VBG Base Excess 3.8 mmol/L; VBG HCO3 25 mmol/L (22-26); VBG pCO2 30 mmHg; VBG pH 7.53 (7.32-7.43); VBG pO2 67 mmHg
[2022-10-02] MEDS: Insulin Lispro 100 UNIT/ML 3 ML VIAL SUBCUT ×5 (05:34→23:46)
[2022-10-02 05:37] LABS: Glucose, Whole Blood 163 mg/dL (60-115)
[2022-10-02 05:43] LABS: MANUAL DIFF FLAG NO
[2022-10-02 05:52] LABS: Basophils Percent Auto 0.3 % (0-2); Eosinophils Absolute Auto 0.5 X10*3/uL (0.0-0.4); Eosinophils Percent Auto 7.1 % (0-4); Hemoglobin 10.3 g/dl (14.0-18.0); Imm Gran Abs Auto 0.03 X10*3/uL (0.00-0.03); Imm Gran Pct Auto 0.4 % (0.0-0.4); Lymphocytes Percent Auto 14.3 % (20-40); Mean Corpuscular HGB Conc 31.2 g/dl (31.0-36.0); Mean Corpuscular Hemoglobin 26.2 pg (27.0-33.0); Mean Platelet Volume 11.2 fL (9.4-12.4); Monocytes Absolute Auto 0.2 X10*3/uL (0.1-1.2); Monocytes Percent Auto 3.4 % (2-11); NRBC Pct Auto 0.4 /100WBC (0.0-0.2); Neutrophils Absolute Auto 5.1 x10*3/uL (2.0-8.3); Neutrophils Percent Auto 74.5 % (45-73); Platelet Count 235 X10*3/uL (160-400); Red Blood Count 3.93 X10*6/uL (4.60-5.80); Red Cell Distribution Width 21.5 % (11.0-16.0); White Blood Count 6.8 X10*3/uL (4.8-10.8)
[2022-10-02 06:02] LABS: Venous Blood Gas Refer to POC result
[2022-10-02 06:05] LABS: Albumin Level 3.6 g/dL (3.5-5.0); Anion Gap 15 (12-20); Blood Urea Nitrogen 12 mg/dL (9-16); Calcium 7.7 mg/dL (8.4-10.2); Carbon Dioxide 25 mmol/L (22-29); Chloride 111 mmol/L (96-108); Creatinine Clr Calc Pharmacy 80.1; Estimated Glomerular Filt Rate > 60; Glucose Random 169 mg/dL (60-115); Magnesium 1.9 mg/dL (1.6-2.6); Phosphorus 2.6 mg/dL (2.7-4.5); Potassium 3.2 mmol/L (3.3-5.1); Sodium 148 mmol/L (135-145)
--- NOTE | 2022-10-02 07:09 | PM.PNGS ---
Subjective Subjective Date of Service: 10/02/22 Interval history: The patient remains intubated and sedated. There is no apparent abdominal distension and his tube feeds are at goal. He is producing stool with no watery diarrhea or bloody diarrhea suggestive of bowel ischemia. His white count is normalized. Physical Exam Vital Signs: Vital Signs: Last Vital Signs Temp 99.5 F 10/02/22 07:00 Pulse 75 10/02/22 07:00 Resp 18 10/02/22 07:00 BP 146/68 H 10/02/22 07:00 Pulse Ox 95 10/02/22 07:00 O2 Del Method 10/02/22 07:00 O2 Flow Rate 25 09/30/22 15:00 FiO2 25 10/02/22 07:00 BMI result Body Mass Index 37.5 Abdominal exam is unchanged. Patient is intubated and sedated Abdomen is nondistended and soft with no guarding Stool with no blood is noted; dark urine is noted in the [place] Objective Data Active Medications Chlorhexidine Gluconate (Chlorhexidine Gluc Oral Rinse 15 Ml Mouthwash) 15 ml BUCCAL TID [facility] Last Admin: 10/01/22 20:06 Dose: 15 ml Documented By: ALEJANDRA Enoxaparin Sodium (Enoxaparin Sodium 80 Mg/0.8 Ml Syringe) 80 mg 1 mg/kg (80 mg) SUBCUT Q12H [facility] Last Admin: 10/02/22 02:03 Dose: 80 mg Documented By: ZENAIDA Glucose (Glucose Gel 15 Gm Gel..Gram.) 15 gm PO Q15M PRN; Protocol PRN Reason: per Hypoglycemia Standing Ord. Glucose (Glucose Gel 15 Gm Gel..Gram.) 15 gm PO Q15M PRN; Protocol PRN Reason: per Hypoglycemia Standing Ord. Thiamine HCl 100 mg/ Sodium (Chloride) 101 mls @ 202 mls/hr IV DAILY [facility] Last Infusion: 10/01/22 09:02 Dose: 0 mls/hr Documented By: FREIDA Dextrose (D10) 250 mls @ 750 mls/hr IV Q15M PRN; Protocol PRN Reason: per Hypoglycemia Standing Ord. Propofol (Diprivan) 1,000 mg in 100 mls @ 0 mls/hr IVCONT .Q0M [facility]; Protocol Last Admin: 10/02/22 02:23 Dose: 30 mcg/kg/min, 20 mls/hr Documented By: ZENAIDA Norepinephrine Bitartrate (Levophed) 8 mg in 250 mls @ 0 mls/hr IVCONT .Q0M [facility]; Protocol Last Titration: 09/30/22 17:55 Dose: 0 mcg/kg/min, 0 mls/hr Documented By: FREIDA Piperacillin Sod/Tazobactam (Sod 3.375 gm/ Sodium Chloride) 50 mls @ 100 mls/hr IV Q6H [facility] Last Infusion: 10/02/22 06:03 Dose: 0 mls/hr Documented By: ZENAIDA Vancomycin HCl 750 mg/ Sodium (Chloride) 265 mls @ 265 mls/hr IV Q12H [facility] Last Infusion: 10/01/22 19:12 Dose: 0 mls/hr Documented By: ALEJANDRA Potassium Phosphate (Kphos) 15 mmol in 250 mls @ 62.5 mls/hr IV ONCE ONE Stop: 10/02/22 11:59 Insulin Human Lispro (Insulin Lispro 100 Unit/Ml 3 Ml Vial) 0 unit SUBCUT Q6H [facility]; Protocol Last Admin: 10/02/22 05:34 Dose: 2 unit Documented By: ZENAIDA Lactic Acid (Ammonium Lactate 12 % Cream 140 Gm Tube) 1 appl TOPICAL DAILY [facility]; Protocol Last Admin: 10/01/22 08:00 Dose: 1 appl Documented By: FREIDA Metoprolol Tartrate (Metoprolol Tartrate 5 Mg/5 Ml Vial) 5 mg IVPUSH Q6H PRN PRN Reason: tachycardia Nystatin (Nystatin Powder 15 Gm Bottle) 1 appl TOPICAL BID [facility]; Protocol Last Admin: 10/01/22 20:06 Dose: 1 appl Documented By: ALEJANDRA Pharmacy Consult (Consult Rx Vancomycin Dosing) 1 each MISCELLANE DAILY PRN PRN Reason: Consult order Sodium Chloride (0.9 % Sodium Chloride Flush 3 Ml Syringe) 3 ml IVFLUSH QSHIFT [facility] Last Admin: 10/01/22 23:54 Dose: 3 ml Documented By: ZENAIDA Labs 10/02/22 05:17 10/02/22 05:17 Labs: Laboratory Results - last 24 hr 10/01/22 10/01/22 10/01/22 11:50 17:39 19:25 MCV MCH MCHC RDW Plt Count MPV Immature Gran % (Auto) Neut % (Auto) Lymph % (Auto) [place] % (Auto) Eos % (Auto) Baso % (Auto) Lymph # (Auto) [place] # (Auto) Eos # (Auto) Baso # (Auto) Abs Immat Gran (auto) Absolute Neuts (auto) Absolute Nucleated RBC Nucleated RBC % (auto) VBG pH VBG pCO2 VBG pO2 VBG HCO3 VBG O2 Saturation VBG Base Excess Anion Gap 18 Estim Creat Clear Calc 71.2 Estimated GFR > 60 POC Glucose 166 H 145 H Random Glucose 164 H Calcium 7.4 L Phosphorus Magnesium Albumin 10/01/22 10/02/22 10/02/22 23:56 05:17 05:17 MCV 84.0 MCH 26.2 L MCHC 31.2 RDW 21.5 H Plt Count 235 MPV 11.2 Immature Gran % (Auto) 0.4 Neut % (Auto) 74.5 H Lymph % (Auto) 14.3 L [place] % (Auto) 3.4 Eos % (Auto) 7.1 H Baso % (Auto) 0.3 Lymph # (Auto) 1.0 L [place] # (Auto) 0.2 Eos # (Auto) 0.5 H Baso # (Auto) 0.0 Abs Immat Gran (auto) 0.03 Absolute Neuts (auto) 5.1 Absolute Nucleated RBC 0.030 H Nucleated RBC % (auto) 0.4 H VBG pH VBG pCO2 VBG pO2 VBG HCO3 VBG O2 Saturation VBG Base Excess Anion Gap 15 Estim Creat Clear Calc 80.1 Estimated GFR > 60 POC Glucose 179 H Random Glucose 169 H Calcium 7.7 L Phosphorus 2.6 L Magnesium 1.9 Albumin 3.6 10/02/22 10/02/22 05:18 05:30 MCV MCH MCHC RDW Plt Count MPV Immature Gran % (Auto) Neut % (Auto) Lymph % (Auto) [place] % (Auto) Eos % (Auto) Baso % (Auto) Lymph # (Auto) [place] # (Auto) Eos # (Auto) Baso # (Auto) Abs Immat Gran (auto) Absolute Neuts (auto) Absolute Nucleated RBC Nucleated RBC % (auto) VBG pH 7.53 H VBG pCO2 30 VBG pO2 67 VBG HCO3 25 VBG O2 Saturation 90.0 VBG Base Excess 3.8 Anion Gap Estim Creat Clear Calc Estimated GFR POC Glucose 163 H Random Glucose Calcium Phosphorus Magnesium Albumin Procedures Date of Service Date of Service: 10/02/22 Progress Note: A&P Assessment and plan (1) Embolic infarction: Status: Acute (2) Metabolic acidosis: Status: Acute (3) Acute respiratory failure with hypoxia: Status: Acute (4) Diabetes: Status: Acute (5) Acute on chronic clinical systolic heart failure: Status: Acute Plan Patient is at goal tube feeds and his bowels are working, consequently, the likelihood of him having bowel ischemia is slim/none. As previously noted, he had embolic infarcts to his spleen and kidney. It is not uncommon for repeat CT in 2+ weeks to show cystic, benign areas of the spleen or infarcted organs. If there is gas, elevated white blood cell count, unknown source of sepsis or some reason to be concerned about an abscess, these are benign and will typically resolve over the course of months. Will sign off for now. Please call with questions. Time Spent With Patient Time: Total time managing care of this patient today ____ minutes. Quality Stroke Does the patient have a stroke diagnosis?: No VTE Prior VTE?: No VTE Risk Level:: Medical - moderate - high VTE Device Contraindication: Treatment Not Indicated VTE Drug Contraindication: N/A - Med Ordered
[2022-10-02] MEDS: vancomycin HCL 750 MG in 0.9 % Sodium Chloride 250 ML 265 MG IV (07:14)
[2022-10-02] MEDS: 0.9 % Sodium Chloride Flush 3 ML SYRINGE IVFLUSH ×3 (07:15→20:18)
[2022-10-02] MEDS: Thiamine HCL 100 MG in 0.9 % Sodium Chloride 100 ML 202 MG IV (07:15)
[2022-10-02] MEDS: Nystatin Powder 15 GM BOTTLE 1 APPL TOPICAL ×2 (07:15→20:18)
[2022-10-02] MEDS: Ammonium Lactate 12 % Cream 140 GM TUBE 1 APPL TOPICAL (07:15)
[2022-10-02] MEDS: Potassium Phosphate/NS 15 MMOL/250 ML PLAST..BAG 62.5 MMOL IV (07:15)
[2022-10-02] MEDS: Chlorhexidine Gluc Oral Rinse 15 ML MOUTHWASH BUCCAL ×3 (07:15→20:17)
[2022-10-02] MEDS: Furosemide 40 MG/4 ML VIAL IVPUSH (08:55)
[2022-10-02] MEDS: Potassium Chloride Packet 20 MEQ PACKET 60 MEQ PO (08:56)
--- NOTE | 2022-10-02 10:09 | P.CDIM_ITS ---
PROVIDER RESPONSE TEXT: To clarify, the appropriate diagnosis supported by the clinical indicators: Acute renal failure on Chronic Kidney Disease (CKD) Stage 1-5 or other QUERY TEXT: PHYSICIAN'S DOCUMENTATION REQUEST Date of Query: 09/29/2022 08:52 AM EDT Patient Name: Abimael Georges Admit Date: 09/17/2022 Dear Ed Meredith, A review of the medical record indicates additional documentation may be needed. Please review below and update the documentation accordingly. Clinical Indicators: ICU Progress note 3 - Assessment/plan: Acute on chronic renal insufficiency ICU Progress note 3 - Assessment/plan: Acute on chronic renal failure, renal function seems to be r eturning to normal. CR: 1.48 GFR: 47 BUN: 44 Please clarify which of the following accurately represents the patient's renal status and any specif ics to the stages of CKD if any: Acute renal failure on Chronic Kidney Disease (CKD) Stage 1-5 or other CKD, please provide stage Other (explain) Clinically unable to determine (explain) Thank you, Skylar Soria, CCS, CDIS Use of terms such as suspected, likely, concern for, or probable (associated with a specific diagnosi s that is being evaluated, monitored, or treated as if it exists) are acceptable and can be coded in the inpatient se tting, when documented at the time of discharge. Please use your independent medical judgment in providing your response. THIS QUERY IS PART OF THE PERMANENT MEDICAL RECORD
--- NOTE | 2022-10-02 10:25 | P.PNCC_ITS ---
Subjective Subjective Date of Service: 10/02/22 Interval History: 71-year-old gentleman with underlying history of systolic heart failure left and a right-sided, diabetes mellitus, AFib, hypertension admitted on 3 long-time 23 no with alcohol abuse/alcohol withdrawal further complicated by acute embolic infarct with hemorrhagic conversion, acute hypercapnic respiratory failure requiring intubation and ventilatory support. Patient respiratory status improved with diuresis and he was extubated on 09/24/2022. However, he remains significantly encephalopathic and continues to fail his swallow evaluation and his hospital course further complicated by recurrent hypernatremia and ongoing congestive heart failure. Overnight 09/28/2022 with development of respiratory distress secondary to metabolic lactic acidosis requiring intubation and ventilatory and vasopressor support. Also developed anuria. Blood cultures sent, started on empiric antibiotics. CT abdomen / pelvis with what appears to be embolic splenic and renal infarcts. Likely transient gastrointestinal ischemia. Evaluated by General surgery and deemed not to require surgical intervention at this time. No events overnight. Critical Care Time (minutes): 45 Physical Exam Vital Signs: Vital Signs: Last Vital Signs Temp 99.0 F 10/02/22 10:00 Pulse 80 10/02/22 10:00 Resp 18 10/02/22 10:00 BP 132/77 10/02/22 10:00 Pulse Ox 97 10/02/22 10:00 O2 Del Method 10/02/22 10:00 O2 Flow Rate 25 09/30/22 15:00 FiO2 25 10/02/22 10:00 BMI result Body Mass Index 37.5 Const: General: no acute distress and other ( Sedated on the vent) Eyes: Sclerae: sclerae normal Neck: Neck: Yes no lymphadenopathy, Yes trachea midline and Yes supple Resp: Auscultation: crackles ( diffuse bilateral) Cardio: Rate: regular rate Rhythm: regular rhythm Heart sounds: no gallops, no murmurs and no rubs GI: Palpation (GI): Soft to palpation and Other GI palpation findings present ( Nontender) Auscultation: normal bowel sounds Extrem: General: No clubbing, No cyanosis and Yes edema ( 2+ bilateral) Objective Data Labs 10/02/22 05:17 10/02/22 05:17 Labs: Laboratory Results - last 24 hr 10/01/22 10/01/22 10/01/22 11:50 17:39 19:25 WBC RBC Hgb Hct MCV MCH MCHC RDW Plt Count MPV Immature Gran % (Auto) Neut % (Auto) Lymph % (Auto) [place] % (Auto) Eos % (Auto) Baso % (Auto) Lymph # (Auto) [place] # (Auto) Eos # (Auto) Baso # (Auto) Abs Immat Gran (auto) Absolute Neuts (auto) Absolute Nucleated RBC Nucleated RBC % (auto) VBG pH VBG pCO2 VBG pO2 VBG HCO3 VBG O2 Saturation VBG Base Excess Sodium 149 H Potassium 4.5 D Chloride 112 H Carbon Dioxide 24 Anion Gap 18 BUN 14 Creatinine 1.17 Estim Creat Clear Calc 71.2 Estimated GFR > 60 POC Glucose 166 H 145 H Random Glucose 164 H Calcium 7.4 L Phosphorus Magnesium Albumin 10/01/22 10/02/22 10/02/22 23:56 05:17 05:17 WBC 6.8 RBC 3.93 L Hgb 10.3 L Hct 33.0 L MCV 84.0 MCH 26.2 L MCHC 31.2 RDW 21.5 H Plt Count 235 MPV 11.2 Immature Gran % (Auto) 0.4 Neut % (Auto) 74.5 H Lymph % (Auto) 14.3 L [place] % (Auto) 3.4 Eos % (Auto) 7.1 H Baso % (Auto) 0.3 Lymph # (Auto) 1.0 L [place] # (Auto) 0.2 Eos # (Auto) 0.5 H Baso # (Auto) 0.0 Abs Immat Gran (auto) 0.03 Absolute Neuts (auto) 5.1 Absolute Nucleated RBC 0.030 H Nucleated RBC % (auto) 0.4 H VBG pH VBG pCO2 VBG pO2 VBG HCO3 VBG O2 Saturation VBG Base Excess Sodium 148 H Potassium 3.2 L D Chloride 111 H Carbon Dioxide 25 Anion Gap 15 BUN 12 Creatinine 1.06 Estim Creat Clear Calc 80.1 Estimated GFR > 60 POC Glucose 179 H Random Glucose 169 H Calcium 7.7 L Phosphorus 2.6 L Magnesium 1.9 Albumin 3.6 10/02/22 10/02/22 05:18 05:30 WBC RBC Hgb Hct MCV MCH MCHC RDW Plt Count MPV Immature Gran % (Auto) Neut % (Auto) Lymph % (Auto) [place] % (Auto) Eos % (Auto) Baso % (Auto) Lymph # (Auto) [place] # (Auto) Eos # (Auto) Baso # (Auto) Abs Immat Gran (auto) Absolute Neuts (auto) Absolute Nucleated RBC Nucleated RBC % (auto) VBG pH 7.53 H VBG pCO2 30 VBG pO2 67 VBG HCO3 25 VBG O2 Saturation 90.0 VBG Base Excess 3.8 Sodium Potassium Chloride Carbon Dioxide Anion Gap BUN Creatinine Estim Creat Clear Calc Estimated GFR POC Glucose 163 H Random Glucose Calcium Phosphorus Magnesium Albumin Microbiology Microbiology Results: Microbiology 09/28/22 21:14 Blood - Venous Blood Culture - Preliminary No growth after 48 hours. 09/28/22 21:14 Blood - Venous Blood Culture - Preliminary No growth after 48 hours. 09/28/22 21:58 Sputum - Suctioned Gram Stain - Final 09/28/22 21:58 Sputum - Suctioned Sputum Culture - Final Strep agalactiae (Grp B) 09/21/22 04:00 Sputum - Suctioned Gram Stain - Final 09/21/22 04:00 Sputum - Suctioned Sputum Culture - Final No growth. 09/16/22 14:56 Blood - Venous Blood Culture - Final No growth after 5 days. 09/16/22 14:56 Blood - Venous Blood Culture - Final No growth after 5 days. Progress Note: A&P Assessment and plan (1) Embolic infarction: Status: Acute (2) Acute respiratory failure with hypoxia: Status: Acute (3) Acute on chronic clinical systolic heart failure: Status: Acute (4) Ischemic congestive cardiomyopathy: Status: Acute (5) Acute CVA (cerebrovascular accident): Status: Acute (6) Acute kidney injury: Status: Acute (7) Atrial fibrillation: Status: Acute (8) Chronic systolic CHF (congestive heart failure): Status: Acute Plan Assessment: 71-year-old gentleman admitted with alcohol intoxication and acute embolic stroke complicated by hemorrhagic conversion, delirium tremens, acute respiratory failure, acute on chronic systolic congestive heart failure, residual encephalopathy, and dysphagia Plan: Neuro: Acute ischemic stroke with hemorrhagic conversion, now with residual encephalopathy and persistent dysphagia. Family discussion about PEG placement ongoing. Cardiac: Acute on chronic biventricular systolic congestive heart failure. Underlying AFib On full-dose Lovenox. Concern for mural vs atrial appendage thrombus with multiple embolic events including renal and splenic infarcts. 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 Cardiology service care appreciated. Pulmonary: Acute respiratory failure on the background of metabolic acidosis requiring ventilatory support. Continue to titrate off as tolerated. Renal: Acute renal failure, non oliguric. Continue to monitor renal indices and urine output. Hypernatremia, improving on free water boluses. Intermittent diuretic to maintain euvolemia. Endo: No acute issues. Underlying diabetes mellitus. GI: Likely transient gastrointestinal ischemia from an embolic event resulting in metabolic acidosis. General surgery service care appreciated. No plan for procedural intervention at this time. ID: Hypotension / end-organ damage / elevated lactate are likely secondary to gastrointestinal ischemia and not sepsis. Blood cultures are negative today. Will monitor off broad-spectrum antibiotics. Heme/Onc: No acute issues. Psych: No acute issues. Miscellaneous: Overall poor clinical prognosis, discussions of goals of care ongoing with the family. Prophylaxis: Lovenox, ppi Diet: Tube feeds Critical care time spent: 45 minutes Quality Stroke Does the patient have a stroke diagnosis?: No VTE Prior VTE?: No VTE Risk Level:: Medical - moderate - high VTE Device Contraindication: Treatment Not Indicated VTE Drug Contraindication: N/A - Med Ordered
--- NOTE | 2022-10-02 10:45 | MHC.CLN ---
F/U PATIENT INTUBATED AND SEDATED. TOLERATING CURRENT TUBE FEEDING. RECOMMEND TUBE FEED PROMOTE AT MAX GOAL RATE 60 ML PER HOUR. FLUSH 240 ML WATER Q 4 HOURS. PROVIDES: 1440 KCALS, 1968 KCALS WITH SEDATION (26.1 KCALS/KG IBW); 90 G PROTEIN (1.2 G/KG IBW); 2648 ML FREE WATER FROM FORMULA AND FLUSH (35.1 ML/KG IBW). SKIN WITH DTI TO BILATERAL BUTTOCKS AND RIGHT LATERAL HEEL. MONITOR TUBE FEED TOLERANCE, LABS, AND SKIN INTEGRITY.. FOLLOW WITH TEAM FOR PLAN OF CARE.
[2022-10-02 11:28] LABS: Glucose, Whole Blood 173 mg/dL (60-115)
[2022-10-02 17:27] LABS: Glucose, Whole Blood 210 mg/dL (60-115)
[2022-10-02 17:58] LABS: Vancomycin Trough 12.3 mcg/mL (10.0-20.0)
[2022-10-02 23:37] LABS: Anion Gap 13 (12-20); Blood Urea Nitrogen 13 mg/dL (9-16); Calcium 7.5 mg/dL (8.4-10.2); Carbon Dioxide 27 mmol/L (22-29); Chloride 109 mmol/L (96-108); Creatinine Clr Calc Pharmacy 77.9; Estimated Glomerular Filt Rate > 60; Glucose Random 226 mg/dL (60-115); Potassium 3.8 mmol/L (3.3-5.1); Sodium 145 mmol/L (135-145)
[2022-10-02 23:46] LABS: Glucose, Whole Blood 233 mg/dL (60-115)
[2022-10-03] VITALS (29 sets, daily range): BP systolic 118–147; BP diastolic 63–82; PULSE 66–91; RESP 18; TEMP 34.6–37.9; O2SAT 95–98; BMI 38.0
[2022-10-03] MEDS: Enoxaparin Sodium 80 MG/0.8 ML SYRINGE SUBCUT ×2 (01:10→14:20)
[2022-10-03] MEDS: Furosemide 40 MG/4 ML VIAL IVPUSH (01:20)
[2022-10-03] MEDS: propofoL 1,000 MG/100 ML VIAL 20 MG IVCONT ×5 (04:13→21:26)
[2022-10-03 05:25] LABS: VBG Base Excess 5.5 mmol/L; VBG HCO3 27 mmol/L (22-26); VBG pCO2 29 mmHg; VBG pH 7.57 (7.32-7.43); VBG pO2 67 mmHg
[2022-10-03 05:26] LABS: Venous Blood Gas Refer to POC result
[2022-10-03 05:39] LABS: MANUAL DIFF FLAG NO
[2022-10-03 05:41] LABS: Basophils Percent Auto 0.3 % (0-2); Eosinophils Absolute Auto 0.5 X10*3/uL (0.0-0.4); Eosinophils Percent Auto 6.8 % (0-4); Hematocrit 32.9 % (42.0-52.0); Hemoglobin 10.4 g/dl (14.0-18.0); Imm Gran Abs Auto 0.04 X10*3/uL (0.00-0.03); Imm Gran Pct Auto 0.6 % (0.0-0.4); Lymphocytes Absolute Auto 1.2 X10*3/uL (1.2-4.9); Lymphocytes Percent Auto 16.9 % (20-40); Mean Corpuscular HGB Conc 31.6 g/dl (31.0-36.0); Mean Corpuscular Hemoglobin 26.3 pg (27.0-33.0); Mean Corpuscular Volume 83.3 fL (80.0-98.0); Mean Platelet Volume 11.2 fL (9.4-12.4); Monocytes Absolute Auto 0.3 X10*3/uL (0.1-1.2); Monocytes Percent Auto 4.1 % (2-11); NRBC Pct Auto 0.3 /100WBC (0.0-0.2); Neutrophils Absolute Auto 4.8 x10*3/uL (2.0-8.3); Neutrophils Percent Auto 71.3 % (45-73); Platelet Count 229 X10*3/uL (160-400); Red Blood Count 3.95 X10*6/uL (4.60-5.80); Red Cell Distribution Width 21.3 % (11.0-16.0); White Blood Count 6.8 X10*3/uL (4.8-10.8)
[2022-10-03 05:58] LABS: Albumin Level 3.1 g/dL (3.5-5.0); Anion Gap 15 (12-20); Blood Urea Nitrogen 13 mg/dL (9-16); Calcium 7.4 mg/dL (8.4-10.2); Carbon Dioxide 25 mmol/L (22-29); Chloride 109 mmol/L (96-108); Creatinine Clr Calc Pharmacy 93.9; Estimated Glomerular Filt Rate > 60; Glucose Random 224 mg/dL (60-115); Magnesium 1.8 mg/dL (1.6-2.6); Phosphorus 2.5 mg/dL (2.7-4.5); Potassium 3.7 mmol/L (3.3-5.1); Sodium 145 mmol/L (135-145)
[2022-10-03] MEDS: Insulin Lispro 100 UNIT/ML 3 ML VIAL SUBCUT ×3 (06:07→18:07)
[2022-10-03] MEDS: 0.9 % Sodium Chloride Flush 3 ML SYRINGE IVFLUSH ×2 (08:01→14:20)
[2022-10-03] MEDS: Potassium Phosphate/NS 15 MMOL/250 ML PLAST..BAG 62.5 MMOL IV (08:01)
[2022-10-03] MEDS: Ammonium Lactate 12 % Cream 140 GM TUBE 1 APPL TOPICAL (08:03)
[2022-10-03] MEDS: Thiamine HCL 100 MG in 0.9 % Sodium Chloride 100 ML 202 MG IV (08:03)
[2022-10-03] MEDS: Nystatin Powder 15 GM BOTTLE 1 APPL TOPICAL ×2 (08:03→19:59)
[2022-10-03] MEDS: Chlorhexidine Gluc Oral Rinse 15 ML MOUTHWASH BUCCAL ×3 (08:05→19:59)
--- NOTE | 2022-10-03 10:20 | PM.CCPN ---
Subjective Subjective Date of Service: 10/03/22 Interval History: 71-year-old gentleman with underlying history of systolic heart failure left and a right-sided, diabetes mellitus, AFib, hypertension admitted on 3 long-time 23 no with alcohol abuse/alcohol withdrawal further complicated by acute embolic infarct with hemorrhagic conversion, acute hypercapnic respiratory failure requiring intubation and ventilatory support. Patient respiratory status improved with diuresis and he was extubated on 09/24/2022. However, he remains significantly encephalopathic and continues to fail his swallow evaluation and his hospital course further complicated by recurrent hypernatremia and ongoing congestive heart failure. Overnight 09/28/2022 with development of respiratory distress secondary to metabolic lactic acidosis requiring intubation and ventilatory and vasopressor support. Also developed anuria. Blood cultures sent, started on empiric antibiotics. CT abdomen / pelvis with what appears to be embolic splenic and renal infarcts. Likely transient gastrointestinal ischemia. Evaluated by General surgery and deemed not to require surgical intervention at this time. No events overnight. Critical Care Time (minutes): 45 Physical Exam Vital Signs: Vital Signs: Last Vital Signs Temp 99.7 F 10/03/22 09:00 Pulse 78 10/03/22 09:00 Resp 18 10/03/22 09:00 BP 123/76 10/03/22 09:00 Pulse Ox 96 10/03/22 09:00 O2 Del Method 10/03/22 09:00 O2 Flow Rate 25 09/30/22 15:00 FiO2 25 10/03/22 09:00 BMI result Body Mass Index 38.0 Const: General: no acute distress and other ( Sedated on the vent) Eyes: Sclerae: sclerae normal Neck: Neck: Yes no lymphadenopathy, Yes trachea midline and Yes supple Resp: Auscultation: crackles ( mild bilateral) Cardio: Rate: regular rate Rhythm: abnormal rhythm irregularly irregular Heart sounds: no gallops, no murmurs and no rubs GI: Palpation (GI): Soft to palpation and Other GI palpation findings present ( Nontender) Auscultation: normal bowel sounds Extrem: General: No clubbing, No cyanosis and Yes edema ( 1+ bilateral) Objective Data Labs 10/03/22 05:16 10/03/22 05:16 Labs: Laboratory Results - last 24 hr 10/02/22 10/02/22 10/02/22 11:23 17:22 17:36 WBC RBC Hgb Hct MCV MCH MCHC RDW Plt Count MPV Immature Gran % (Auto) Neut % (Auto) Lymph % (Auto) [place] % (Auto) Eos % (Auto) Baso % (Auto) Lymph # (Auto) [place] # (Auto) Eos # (Auto) Baso # (Auto) Abs Immat Gran (auto) Absolute Neuts (auto) Absolute Nucleated RBC Nucleated RBC % (auto) VBG pH VBG pCO2 VBG pO2 VBG HCO3 VBG O2 Saturation VBG Base Excess Sodium Potassium Chloride Carbon Dioxide Anion Gap BUN Creatinine Estim Creat Clear Calc Estimated GFR POC Glucose 173 H 210 H Random Glucose Calcium Phosphorus Magnesium Albumin Vancomycin Trough 12.3 10/02/22 10/02/22 10/03/22 23:15 23:41 05:16 WBC RBC Hgb Hct MCV MCH MCHC RDW Plt Count MPV Immature Gran % (Auto) Neut % (Auto) Lymph % (Auto) [place] % (Auto) Eos % (Auto) Baso % (Auto) Lymph # (Auto) [place] # (Auto) Eos # (Auto) Baso # (Auto) Abs Immat Gran (auto) Absolute Neuts (auto) Absolute Nucleated RBC Nucleated RBC % (auto) VBG pH VBG pCO2 VBG pO2 VBG HCO3 VBG O2 Saturation VBG Base Excess Sodium 145 145 Potassium 3.8 3.7 Chloride 109 H 109 H Carbon Dioxide 27 25 Anion Gap 13 15 BUN 13 13 Creatinine 1.09 0.91 Estim Creat Clear Calc 77.9 93.9 Estimated GFR > 60 > 60 POC Glucose 233 H Random Glucose 226 H 224 H Calcium 7.5 L 7.4 L Phosphorus 2.5 L Magnesium 1.8 Albumin 3.1 L Vancomycin Trough 10/03/22 10/03/22 05:16 05:17 WBC 6.8 RBC 3.95 L Hgb 10.4 L Hct 32.9 L MCV 83.3 MCH 26.3 L MCHC 31.6 RDW 21.3 H Plt Count 229 MPV 11.2 Immature Gran % (Auto) 0.6 H Neut % (Auto) 71.3 Lymph % (Auto) 16.9 L [place] % (Auto) 4.1 Eos % (Auto) 6.8 H Baso % (Auto) 0.3 Lymph # (Auto) 1.2 [place] # (Auto) 0.3 Eos # (Auto) 0.5 H Baso # (Auto) 0.0 Abs Immat Gran (auto) 0.04 H Absolute Neuts (auto) 4.8 Absolute Nucleated RBC 0.020 H Nucleated RBC % (auto) 0.3 H VBG pH 7.57 H VBG pCO2 29 VBG pO2 67 VBG HCO3 27 H VBG O2 Saturation 91.0 VBG Base Excess 5.5 Sodium Potassium Chloride Carbon Dioxide Anion Gap BUN Creatinine Estim Creat Clear Calc Estimated GFR POC Glucose Random Glucose Calcium Phosphorus Magnesium Albumin Vancomycin Trough Microbiology Microbiology Results: Microbiology 09/28/22 21:14 Blood - Venous Blood Culture - Preliminary No growth after 48 hours. 09/28/22 21:14 Blood - Venous Blood Culture - Preliminary No growth after 48 hours. 09/28/22 21:58 Sputum - Suctioned Gram Stain - Final 09/28/22 21:58 Sputum - Suctioned Sputum Culture - Final Strep agalactiae (Grp B) 09/21/22 04:00 Sputum - Suctioned Gram Stain - Final 09/21/22 04:00 Sputum - Suctioned Sputum Culture - Final No growth. 09/16/22 14:56 Blood - Venous Blood Culture - Final No growth after 5 days. 09/16/22 14:56 Blood - Venous Blood Culture - Final No growth after 5 days. Progress Note: A&P Assessment and plan (1) Embolic infarction: Status: Acute (2) Acute respiratory failure with hypoxia: Status: Acute (3) Diabetes: Status: Acute (4) Acute on chronic clinical systolic heart failure: Status: Acute (5) Alcoholism: Status: Acute (6) Atrial fibrillation: Status: Acute (7) Acute CVA (cerebrovascular accident): Status: Acute Plan Assessment: 71-year-old gentleman admitted with alcohol intoxication and acute embolic stroke complicated by hemorrhagic conversion, delirium tremens, acute respiratory failure, acute on chronic systolic congestive heart failure, residual encephalopathy, and dysphagia Plan: Neuro: Acute ischemic stroke with hemorrhagic conversion, now with residual encephalopathy and persistent dysphagia. Family discussion about PEG placement ongoing. Cardiac: Acute on chronic biventricular systolic congestive heart failure. Underlying AFib On full-dose Lovenox. Concern for mural vs atrial appendage thrombus with multiple embolic events including renal and splenic infarcts. 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 Cardiology service care appreciated. Pulmonary: Acute respiratory failure on the background of metabolic acidosis requiring ventilatory support. Continue to titrate off as tolerated. Renal: Acute renal failure, resolved. Continue to monitor renal indices and urine output. Hypernatremia, resolved. Intermittent diuretic to maintain euvolemia. Endo: No acute issues. Underlying diabetes mellitus. GI: Likely transient gastrointestinal ischemia from an embolic event resulting in metabolic acidosis. General surgery service care appreciated. No plan for procedural intervention at this time. ID: Hypotension / end-organ damage / elevated lactate are likely secondary to gastrointestinal ischemia and not sepsis. Blood cultures are negative today. Will monitor off broad-spectrum antibiotics. Heme/Onc: No acute issues. Psych: No acute issues. Miscellaneous: Overall poor clinical prognosis, discussions of goals of care ongoing with the family. Prophylaxis: Lovenox, ppi Diet: Tube feeds Critical care time spent: 45 minutes Quality Stroke Does the patient have a stroke diagnosis?: No VTE Prior VTE?: No VTE Risk Level:: Medical - moderate - high VTE Device Contraindication: Treatment Not Indicated VTE Drug Contraindication: N/A - Med Ordered
[2022-10-03 11:28] LABS: Glucose, Whole Blood 201 mg/dL (60-115)
[2022-10-03 18:02] LABS: Glucose, Whole Blood 218 mg/dL (60-115)
[2022-10-03 23:56] LABS: Glucose, Whole Blood 216 mg/dL (60-115)
[2022-10-04] VITALS (29 sets, daily range): BP systolic 102–144; BP diastolic 33–78; PULSE 18–97; RESP 13–18; TEMP 34.7–37.9; O2SAT 93–100; BMI 37.1
[2022-10-04] MEDS: Insulin Lispro 100 UNIT/ML 3 ML VIAL SUBCUT ×4 (00:45→18:14)
[2022-10-04] MEDS: Enoxaparin Sodium 80 MG/0.8 ML SYRINGE SUBCUT ×2 (00:45→12:22)
[2022-10-04] MEDS: propofoL 1,000 MG/100 ML VIAL 20 MG IVCONT ×4 (00:45→13:47)
[2022-10-04] MEDS: 0.9 % Sodium Chloride Flush 3 ML SYRINGE IVFLUSH ×3 (00:45→15:25)
[2022-10-04] MEDS: Furosemide 40 MG/4 ML VIAL IVPUSH (02:05)
[2022-10-04 05:36] LABS: VBG HCO3 26 mmol/L (22-26); VBG pCO2 34 mmHg; VBG pH 7.48 (7.32-7.43); VBG pO2 50 mmHg
[2022-10-04 05:39] LABS: MANUAL DIFF FLAG NO
[2022-10-04 05:41] LABS: Basophils Percent Auto 0.4 % (0-2); Eosinophils Absolute Auto 0.4 X10*3/uL (0.0-0.4); Hematocrit 36.2 % (42.0-52.0); Hemoglobin 11.4 g/dl (14.0-18.0); Imm Gran Abs Auto 0.03 X10*3/uL (0.00-0.03); Imm Gran Pct Auto 0.4 % (0.0-0.4); Lymphocytes Absolute Auto 1.3 X10*3/uL (1.2-4.9); Lymphocytes Percent Auto 18.7 % (20-40); Mean Corpuscular HGB Conc 31.5 g/dl (31.0-36.0); Mean Corpuscular Hemoglobin 25.9 pg (27.0-33.0); Mean Corpuscular Volume 82.1 fL (80.0-98.0); Mean Platelet Volume 11.1 fL (9.4-12.4); Monocytes Absolute Auto 0.3 X10*3/uL (0.1-1.2); Monocytes Percent Auto 3.9 % (2-11); Neutrophils Percent Auto 70.6 % (45-73); Platelet Count 228 X10*3/uL (160-400); Red Blood Count 4.41 X10*6/uL (4.60-5.80); Red Cell Distribution Width 21.2 % (11.0-16.0); White Blood Count 7.2 X10*3/uL (4.8-10.8)
[2022-10-04 05:58] LABS: Anion Gap 15 (12-20); Blood Urea Nitrogen 14 mg/dL (9-16); Calcium 7.7 mg/dL (8.4-10.2); Carbon Dioxide 25 mmol/L (22-29); Chloride 105 mmol/L (96-108); Creatinine Clr Calc Pharmacy 91.9; Estimated Glomerular Filt Rate > 60; Glucose Random 215 mg/dL (60-115); Magnesium 1.8 mg/dL (1.6-2.6); Phosphorus 2.5 mg/dL (2.7-4.5); Potassium 3.4 mmol/L (3.3-5.1); Sodium 142 mmol/L (135-145)
[2022-10-04 06:08] LABS: Glucose, Whole Blood 211 mg/dL (60-115)
[2022-10-04 06:10] LABS: Venous Blood Gas Refer to POC result
[2022-10-04] MEDS: Potassium Phosphate/NS 15 MMOL/250 ML PLAST..BAG 62.5 MMOL IV (07:25)
[2022-10-04] MEDS: Thiamine HCL 100 MG in 0.9 % Sodium Chloride 100 ML 202 MG IV (07:35)
[2022-10-04] MEDS: Nystatin Powder 15 GM BOTTLE 1 APPL TOPICAL ×2 (08:05→21:07)
[2022-10-04] MEDS: Ammonium Lactate 12 % Cream 140 GM TUBE 1 APPL TOPICAL (08:05)
[2022-10-04] MEDS: Chlorhexidine Gluc Oral Rinse 15 ML MOUTHWASH BUCCAL ×3 (08:06→21:07)
--- NOTE | 2022-10-04 11:04 | PM.CCPN ---
Subjective Subjective Date of Service: 10/04/22 Interval History: 71-year-old gentleman with underlying history of systolic heart failure left and a right-sided, diabetes mellitus, AFib, hypertension admitted on 3 long-time 23 no with alcohol abuse/alcohol withdrawal further complicated by acute embolic infarct with hemorrhagic conversion, acute hypercapnic respiratory failure requiring intubation and ventilatory support. Patient respiratory status improved with diuresis and he was extubated on 09/24/2022. However, he remains significantly encephalopathic and continues to fail his swallow evaluation and his hospital course further complicated by recurrent hypernatremia and ongoing congestive heart failure. Overnight 09/28/2022 with development of respiratory distress secondary to metabolic lactic acidosis requiring intubation and ventilatory and vasopressor support. Also developed anuria. Blood cultures sent, started on empiric antibiotics. CT abdomen / pelvis with what appears to be embolic splenic and renal infarcts. Likely transient gastrointestinal ischemia. Evaluated by General surgery and deemed not to require surgical intervention at this time. No events overnight. Critical Care Time (minutes): 45 Physical Exam Vital Signs: Vital Signs: Last Vital Signs Temp 99.5 F 10/04/22 10:00 Pulse 65 10/04/22 10:00 Resp 18 10/04/22 10:00 BP 127/72 10/04/22 10:00 Pulse Ox 95 10/04/22 10:00 O2 Del Method 10/04/22 10:00 O2 Flow Rate 25 09/30/22 15:00 FiO2 25 10/04/22 10:00 BMI result Body Mass Index 37.1 Const: General: no acute distress and other ( sedated on the vent) Eyes: Sclerae: sclerae normal EOM: EOMs intact bilaterally Neck: Neck: Yes no lymphadenopathy, Yes trachea midline and Yes supple Resp: Auscultation: crackles ( mild bilateral) Cardio: Rate: regular rate Rhythm: abnormal rhythm irregularly irregular Heart sounds: no gallops, no murmurs and no rubs GI: Palpation (GI): Soft to palpation and Other GI palpation findings present ( Nontender) Auscultation: normal bowel sounds Extrem: General: No clubbing, No cyanosis and Yes edema ( 2+ bilateral) Objective Data Labs 10/04/22 05:30 10/04/22 05:30 Labs: Laboratory Results - last 24 hr 10/03/22 10/03/22 10/03/22 11:23 17:59 23:52 WBC RBC Hgb Hct MCV MCH MCHC RDW Plt Count MPV Immature Gran % (Auto) Neut % (Auto) Lymph % (Auto) [place] % (Auto) Eos % (Auto) Baso % (Auto) Lymph # (Auto) [place] # (Auto) Eos # (Auto) Baso # (Auto) Abs Immat Gran (auto) Absolute Neuts (auto) Absolute Nucleated RBC Nucleated RBC % (auto) VBG pH VBG pCO2 VBG pO2 VBG HCO3 VBG O2 Saturation VBG Base Excess Sodium Potassium Chloride Carbon Dioxide Anion Gap BUN Creatinine Estim Creat Clear Calc Estimated GFR POC Glucose 201 H 218 H 216 H Random Glucose Calcium Phosphorus Magnesium Albumin 10/04/22 10/04/22 10/04/22 05:28 05:30 05:30 WBC 7.2 RBC 4.41 L Hgb 11.4 L Hct 36.2 L MCV 82.1 MCH 25.9 L MCHC 31.5 RDW 21.2 H Plt Count 228 MPV 11.1 Immature Gran % (Auto) 0.4 Neut % (Auto) 70.6 Lymph % (Auto) 18.7 L [place] % (Auto) 3.9 Eos % (Auto) 6.0 H Baso % (Auto) 0.4 Lymph # (Auto) 1.3 [place] # (Auto) 0.3 Eos # (Auto) 0.4 Baso # (Auto) 0.0 Abs Immat Gran (auto) 0.03 Absolute Neuts (auto) 5.0 Absolute Nucleated RBC 0.000 Nucleated RBC % (auto) 0.0 VBG pH 7.48 H VBG pCO2 34 VBG pO2 50 VBG HCO3 26 VBG O2 Saturation 76.0 VBG Base Excess 3.0 Sodium 142 Potassium 3.4 Chloride 105 Carbon Dioxide 25 Anion Gap 15 BUN 14 Creatinine 0.93 Estim Creat Clear Calc 91.9 Estimated GFR > 60 POC Glucose Random Glucose 215 H Calcium 7.7 L Phosphorus 2.5 L Magnesium 1.8 Albumin 3.0 L 10/04/22 06:05 WBC RBC Hgb Hct MCV MCH MCHC RDW Plt Count MPV Immature Gran % (Auto) Neut % (Auto) Lymph % (Auto) [place] % (Auto) Eos % (Auto) Baso % (Auto) Lymph # (Auto) [place] # (Auto) Eos # (Auto) Baso # (Auto) Abs Immat Gran (auto) Absolute Neuts (auto) Absolute Nucleated RBC Nucleated RBC % (auto) VBG pH VBG pCO2 VBG pO2 VBG HCO3 VBG O2 Saturation VBG Base Excess Sodium Potassium Chloride Carbon Dioxide Anion Gap BUN Creatinine Estim Creat Clear Calc Estimated GFR POC Glucose 211 H Random Glucose Calcium Phosphorus Magnesium Albumin Microbiology Microbiology Results: Microbiology 09/28/22 21:14 Blood - Venous Blood Culture - Final No growth after 5 days. 09/28/22 21:14 Blood - Venous Blood Culture - Final No growth after 5 days. 09/28/22 21:58 Sputum - Suctioned Gram Stain - Final 09/28/22 21:58 Sputum - Suctioned Sputum Culture - Final Strep agalactiae (Grp B) 09/21/22 04:00 Sputum - Suctioned Gram Stain - Final 09/21/22 04:00 Sputum - Suctioned Sputum Culture - Final No growth. 09/16/22 14:56 Blood - Venous Blood Culture - Final No growth after 5 days. 09/16/22 14:56 Blood - Venous Blood Culture - Final No growth after 5 days. Progress Note: A&P Assessment and plan (1) Embolic infarction: Status: Acute (2) Acute respiratory failure with hypoxia: Status: Acute (3) Diabetes: Status: Acute (4) Acute on chronic clinical systolic heart failure: Status: Acute (5) Alcoholism: Status: Acute (6) Acute CVA (cerebrovascular accident): Status: Acute (7) Atrial fibrillation: Status: Acute Plan Assessment: 71-year-old gentleman admitted with alcohol intoxication and acute embolic stroke complicated by hemorrhagic conversion, delirium tremens, acute respiratory failure, acute on chronic systolic congestive heart failure, residual encephalopathy, and dysphagia Plan: Neuro: Acute ischemic stroke with hemorrhagic conversion, now with residual encephalopathy and persistent dysphagia. Family discussion about PEG placement ongoing. Cardiac: Acute on chronic biventricular systolic congestive heart failure. Underlying AFib On full-dose Lovenox. Cardiology service care appreciated. Pulmonary: Acute respiratory failure on the background of metabolic acidosis requiring ventilatory support. Continue to titrate off as tolerated. Renal: Acute renal failure, resolved. Continue to monitor renal indices and urine output. Hypernatremia, resolved. Intermittent diuretic to maintain euvolemia. Endo: No acute issues. Underlying diabetes mellitus. GI: Likely transient gastrointestinal ischemia from an embolic event resulting in metabolic acidosis. General surgery service care appreciated. No plan for procedural intervention at this time. ID: Hypotension / end-organ damage / elevated lactate are likely secondary to gastrointestinal ischemia and not sepsis. Blood cultures are negative today. Will monitor off broad-spectrum antibiotics. Heme/Onc: No acute issues. Psych: No acute issues. Miscellaneous: Overall poor clinical prognosis, discussions of goals of care ongoing with the family. Awaiting son's visit. Prophylaxis: Lovenox, ppi Diet: Tube feeds Critical care time spent: 45 minutes Quality Stroke Does the patient have a stroke diagnosis?: No VTE Prior VTE?: No VTE Risk Level:: Medical - moderate - high VTE Device Contraindication: Treatment Not Indicated VTE Drug Contraindication: N/A - Med Ordered
[2022-10-04 11:50] LABS: Glucose, Whole Blood 224 mg/dL (60-115)
[2022-10-04 18:15] LABS: Glucose, Whole Blood 219 mg/dL (60-115)
[2022-10-04] MEDS: propofoL 1,000 MG/100 ML VIAL 13.33 MG IVCONT (20:50)
[2022-10-05] VITALS (29 sets, daily range): BP systolic 110–177; BP diastolic 56–77; PULSE 65–91; RESP 7–69; TEMP 34.7–37.7; O2SAT 93–97; BMI 38.8
[2022-10-05 00:28] LABS: Glucose, Whole Blood 206 mg/dL (60-115)
[2022-10-05] MEDS: Enoxaparin Sodium 80 MG/0.8 ML SYRINGE SUBCUT ×2 (00:28→12:47)
[2022-10-05] MEDS: Insulin Lispro 100 UNIT/ML 3 ML VIAL SUBCUT ×4 (00:29→18:25)
[2022-10-05] MEDS: 0.9 % Sodium Chloride Flush 3 ML SYRINGE IVFLUSH ×2 (00:29→08:44)
[2022-10-05] MEDS: propofoL 1,000 MG/100 ML VIAL 13.33 MG IVCONT ×4 (03:11→20:57)
[2022-10-05 05:13] LABS: VBG Base Excess 3.9 mmol/L; VBG HCO3 26 mmol/L (22-26); VBG pCO2 34 mmHg; VBG pO2 46 mmHg
[2022-10-05 05:17] LABS: Venous Blood Gas Refer to POC result
[2022-10-05 05:48] LABS: Albumin Level 2.8 g/dL (3.5-5.0); Anion Gap 13 (12-20); Blood Urea Nitrogen 14 mg/dL (9-16); Calcium 7.9 mg/dL (8.4-10.2); Carbon Dioxide 27 mmol/L (22-29); Chloride 103 mmol/L (96-108); Creatinine Clr Calc Pharmacy 104.3; Estimated Glomerular Filt Rate > 60; Glucose Random 200 mg/dL (60-115); Magnesium 1.8 mg/dL (1.6-2.6); Phosphorus 2.4 mg/dL (2.7-4.5); Potassium 4.2 mmol/L (3.3-5.1); Sodium 139 mmol/L (135-145)
[2022-10-05 05:56] LABS: Glucose, Whole Blood 217 mg/dL (60-115)
[2022-10-05 07:09] LABS: MANUAL DIFF FLAG NO
[2022-10-05 07:15] LABS: Basophils Percent Auto 0.4 % (0-2); Eosinophils Absolute Auto 0.5 X10*3/uL (0.0-0.4); Eosinophils Percent Auto 7.9 % (0-4); Hematocrit 34.9 % (42.0-52.0); Hemoglobin 10.9 g/dl (14.0-18.0); Imm Gran Abs Auto 0.03 X10*3/uL (0.00-0.03); Imm Gran Pct Auto 0.4 % (0.0-0.4); Lymphocytes Absolute Auto 1.5 X10*3/uL (1.2-4.9); Lymphocytes Percent Auto 22.1 % (20-40); Mean Corpuscular HGB Conc 31.2 g/dl (31.0-36.0); Mean Corpuscular Hemoglobin 25.8 pg (27.0-33.0); Mean Corpuscular Volume 82.5 fL (80.0-98.0); Mean Platelet Volume 11.2 fL (9.4-12.4); Monocytes Absolute Auto 0.3 X10*3/uL (0.1-1.2); Monocytes Percent Auto 4.9 % (2-11); Neutrophils Absolute Auto 4.3 x10*3/uL (2.0-8.3); Neutrophils Percent Auto 64.3 % (45-73); Platelet Count 227 X10*3/uL (160-400); Red Blood Count 4.23 X10*6/uL (4.60-5.80); Red Cell Distribution Width 21.2 % (11.0-16.0); White Blood Count 6.7 X10*3/uL (4.8-10.8)
[2022-10-05] MEDS: Furosemide 40 MG/4 ML VIAL IVPUSH (08:43)
[2022-10-05] MEDS: Albumin Human 25 % 100 ML IV ×2 (08:43→16:30)
[2022-10-05] MEDS: Ammonium Lactate 12 % Cream 140 GM TUBE 1 APPL TOPICAL (08:44)
[2022-10-05] MEDS: Nystatin Powder 15 GM BOTTLE 1 APPL TOPICAL ×2 (08:44→20:38)
[2022-10-05] MEDS: Thiamine HCL 100 MG in 0.9 % Sodium Chloride 100 ML 202 MG IV (08:44)
[2022-10-05] MEDS: Chlorhexidine Gluc Oral Rinse 15 ML MOUTHWASH BUCCAL ×3 (08:45→20:26)
--- NOTE | 2022-10-05 09:40 | MHC.CM.PN ---
Pt continues on ventilatory support w/poor overal prognosis d/t organ/brain infarcts. Pt's son (and primary HCP) to arrive today from incarceration (w/guards) to see pt. feels family will make the decision for [facility] once this occurs. CM to follow should family have questions or need information.
[2022-10-05] MEDS: Potassium Phosphate/NS 15 MMOL/250 ML PLAST..BAG 62.5 MMOL IV (10:13)
[2022-10-05 12:13] LABS: Glucose, Whole Blood 222 mg/dL (60-115)
--- NOTE | 2022-10-05 13:38 | P.PNCC_ITS ---
Subjective Subjective Date of Service: 10/05/22 Interval History: 71-year-old gentleman with underlying history of systolic heart failure left and a right-sided, diabetes mellitus, AFib, hypertension admitted on 3 long-time 23 no with alcohol abuse/alcohol withdrawal further complicated by acute embolic infarct with hemorrhagic conversion, acute hypercapnic respiratory failure requiring intubation and ventilatory support. Patient respiratory status improved with diuresis and he was extubated on 09/24/2022. However, he remains significantly encephalopathic and continues to fail his swallow evaluation and his hospital course further complicated by recurrent hypernatremia and ongoing congestive heart failure. Overnight 09/28/2022 with development of respiratory distress secondary to metabolic lactic acidosis requiring intubation and ventilatory and vasopressor support. Also developed anuria. Blood cultures sent, started on empiric antibiotics. CT abdomen / pelvis with what appears to be embolic splenic and renal infarcts. Likely transient gastrointestinal ischemia. Evaluated by General surgery and deemed not to require surgical intervention at this time. No events overnight. Critical Care Time (minutes): 45 Physical Exam Vital Signs: Vital Signs: Last Vital Signs Temp 99.3 F 10/05/22 13:00 Pulse 71 10/05/22 13:00 Resp 17 10/05/22 13:00 BP 124/61 10/05/22 13:00 Pulse Ox 95 10/05/22 13:00 O2 Del Method 10/05/22 13:00 O2 Flow Rate 25 10/05/22 00:00 FiO2 25 10/05/22 13:00 BMI result Body Mass Index 38.8 Const: General: no acute distress and other ( Sedated on the vent) Nu tritional Appearance: Edematous Eyes: Sclerae: sclerae normal Neck: Neck: Yes no lymphadenopathy, Yes trachea midline and Yes supple Resp: Auscultation: crackles ( mild bilateral) Cardio: Rate: regular rate Rhythm: abnormal rhythm irregularly irregular Heart sounds: no gallops, no murmurs and no rubs GI: Palpation (GI): Soft to palpation and Other GI palpation findings present ( Nontender) Auscultation: normal bowel sounds Extrem: General: No clubbing, No cyanosis and Yes edema ( 2+ bilateral) Objective Data Labs 10/05/22 07:06 10/05/22 05:15 Labs: Laboratory Results - last 24 hr 10/04/22 10/05/22 10/05/22 18:10 00:24 05:05 WBC RBC Hgb Hct MCV MCH MCHC RDW Plt Count MPV Immature Gran % (Auto) Neut % (Auto) Lymph % (Auto) [place] % (Auto) Eos % (Auto) Baso % (Auto) Lymph # (Auto) [place] # (Auto) Eos # (Auto) Baso # (Auto) Abs Immat Gran (auto) Absolute Neuts (auto) Absolute Nucleated RBC Nucleated RBC % (auto) VBG pH 7.50 H VBG pCO2 34 VBG pO2 46 VBG HCO3 26 VBG O2 Saturation 71.0 VBG Base Excess 3.9 Sodium Potassium Chloride Carbon Dioxide Anion Gap BUN Creatinine Estim Creat Clear Calc Estimated GFR POC Glucose 219 H 206 H Random Glucose Calcium Phosphorus Magnesium Albumin 10/05/22 10/05/22 10/05/22 05:15 05:52 07:06 WBC 6.7 RBC 4.23 L Hgb 10.9 L Hct 34.9 L MCV 82.5 MCH 25.8 L MCHC 31.2 RDW 21.2 H Plt Count 227 MPV 11.2 Immature Gran % (Auto) 0.4 Neut % (Auto) 64.3 Lymph % (Auto) 22.1 [place] % (Auto) 4.9 Eos % (Auto) 7.9 H Baso % (Auto) 0.4 Lymph # (Auto) 1.5 [place] # (Auto) 0.3 Eos # (Auto) 0.5 H Baso # (Auto) 0.0 Abs Immat Gran (auto) 0.03 Absolute Neuts (auto) 4.3 Absolute Nucleated RBC 0.000 Nucleated RBC % (auto) 0.0 VBG pH VBG pCO2 VBG pO2 VBG HCO3 VBG O2 Saturation VBG Base Excess Sodium 139 Potassium 4.2 D Chloride 103 Carbon Dioxide 27 Anion Gap 13 BUN 14 Creatinine 0.81 Estim Creat Clear Calc 104.3 Estimated GFR > 60 POC Glucose 217 H Random Glucose 200 H Calcium 7.9 L Phosphorus 2.4 L Magnesium 1.8 Albumin 2.8 L 10/05/22 11:56 WBC RBC Hgb Hct MCV MCH MCHC RDW Plt Count MPV Immature Gran % (Auto) Neut % (Auto) Lymph % (Auto) [place] % (Auto) Eos % (Auto) Baso % (Auto) Lymph # (Auto) [place] # (Auto) Eos # (Auto) Baso # (Auto) Abs Immat Gran (auto) Absolute Neuts (auto) Absolute Nucleated RBC Nucleated RBC % (auto) VBG pH VBG pCO2 VBG pO2 VBG HCO3 VBG O2 Saturation VBG Base Excess Sodium Potassium Chloride Carbon Dioxide Anion Gap BUN Creatinine Estim Creat Clear Calc Estimated GFR POC Glucose 222 H Random Glucose Calcium Phosphorus Magnesium Albumin Microbiology Microbiology Results: Microbiology 09/28/22 21:14 Blood - Venous Blood Culture - Final No growth after 5 days. 09/28/22 21:14 Blood - Venous Blood Culture - Final No growth after 5 days. 09/28/22 21:58 Sputum - Suctioned Gram Stain - Final 09/28/22 21:58 Sputum - Suctioned Sputum Culture - Final Strep agalactiae (Grp B) 09/21/22 04:00 Sputum - Suctioned Gram Stain - Final 09/21/22 04:00 Sputum - Suctioned Sputum Culture - Final No growth. 09/16/22 14:56 Blood - Venous Blood Culture - Final No growth after 5 days. 09/16/22 14:56 Blood - Venous Blood Culture - Final No growth after 5 days. Progress Note: A&P Assessment and plan (1) Embolic infarction: Status: Acute (2) Acute respiratory failure with hypoxia: Status: Acute (3) Diabetes: Status: Acute (4) Acute on chronic clinical systolic heart failure: Status: Acute (5) Acute CVA (cerebrovascular accident): Status: Acute (6) Alcoholism: Status: Acute (7) Atrial fibrillation: Status: Acute Plan Assessment: 71-year-old gentleman admitted with alcohol intoxication and acute embolic stroke complicated by hemorrhagic conversion, delirium tremens, acute respiratory failure, acute on chronic systolic congestive heart failure, residua l encephalopathy, and dysphagia Plan: Neuro: Acute ischemic stroke with hemorrhagic conversion, now with residual encephalopathy and persistent dysphagia. Family discussion about PEG placement ongoing. Cardiac: Acute on chronic biventricular systolic congestive heart failure. Underlying AFib On full-dose Lovenox. Cardiology service care appreciated. Pulmonary: Acute respiratory failure on the background of metabolic acidosis requiring ventilatory support. Continue to titrate off as tolerated. Renal: Acute renal failure, resolved. Continue to monitor renal indices and urine output. Hypernatremia, resolved. Intermittent diuretic to maintain euvolemia. Endo: No acute issues. Underlying diabetes mellitus. GI: No acute issues. ID: Blood cultures are negative to date. Will monitor off broad-spectrum antibiotics. Heme/Onc: No acute issues. Psych: No acute issues. Miscellaneous: Overall poor clinical prognosis, discussions of goals of care ongoing with the family. Awaiting son's visit. Prophylaxis: Lovenox, ppi Diet: Tube feeds Critical care time spent: 45 minutes Quality Stroke Does the patient have a stroke diagnosis?: No VTE Prior VTE?: No VTE Risk Level:: Medical - moderate - high VTE Device Contraindication: Treatment Not Indicated VTE Drug Contraindication: N/A - Med Ordered
[2022-10-05] MEDS: Insulin Glargine,Hum.rec.anlog 100 UNIT/ML 10 ML VIAL 10 UNIT SUBCUT (16:30)
--- NOTE | 2022-10-05 17:02 | PC.NURSE ---
Assumed care at 07:00, patient tracks, moves extremities R>L in response to pain, opens eyes spontaneously, does not breathe over ventilator, Positive cough and gag. Patient not given sedation vacation per MD today. patient family in to visit and updated. Patient continues on 20 propofol gtt. Lasix gtt 20 mg IVP with 1300 ccs output of urine. Patient with vital signs essentially unremarkable, afib with BBB on telemetry. Tolerating TF. no BM today.
[2022-10-05 17:59] LABS: Glucose, Whole Blood 205 mg/dL (60-115)
[2022-10-05] MEDS: Albumin Human 25 % 100 ML 1000 ML IV (20:26)
[2022-10-06] VITALS (31 sets, daily range): BP systolic 116–142; BP diastolic 59–83; PULSE 67–92; RESP 16–22; TEMP 34.8–38.7; O2SAT 94–98; BMI 39.0
[2022-10-06 00:36] LABS: Glucose, Whole Blood 155 mg/dL (60-115)
[2022-10-06] MEDS: Insulin Lispro 100 UNIT/ML 3 ML VIAL SUBCUT ×3 (00:40→12:19)
[2022-10-06] MEDS: 0.9 % Sodium Chloride Flush 3 ML SYRINGE IVFLUSH ×3 (00:41→16:07)
[2022-10-06] MEDS: propofoL 1,000 MG/100 ML VIAL 20 MG IVCONT ×2 (01:00→06:02)
[2022-10-06] MEDS: Enoxaparin Sodium 80 MG/0.8 ML SYRINGE SUBCUT ×2 (01:16→12:19)
[2022-10-06] MEDS: Albumin Human 25 % 100 ML IV (01:19)
[2022-10-06 04:56] LABS: VBG Base Excess 4.4 mmol/L; VBG HCO3 26 mmol/L (22-26); VBG pCO2 32 mmHg; VBG pH 7.52 (7.32-7.43); VBG pO2 48 mmHg
[2022-10-06 05:08] LABS: Venous Blood Gas Refer to POC result
[2022-10-06 05:30] LABS: MANUAL DIFF FLAG NO
[2022-10-06 05:35] LABS: Basophils Percent Auto 0.5 % (0-2); Eosinophils Absolute Auto 0.5 X10*3/uL (0.0-0.4); Eosinophils Percent Auto 7.8 % (0-4); Hematocrit 31.7 % (42.0-52.0); Hemoglobin 9.9 g/dl (14.0-18.0); Imm Gran Abs Auto 0.03 X10*3/uL (0.00-0.03); Imm Gran Pct Auto 0.5 % (0.0-0.4); Lymphocytes Absolute Auto 1.5 X10*3/uL (1.2-4.9); Lymphocytes Percent Auto 24.1 % (20-40); Mean Corpuscular HGB Conc 31.2 g/dl (31.0-36.0); Mean Corpuscular Hemoglobin 26.3 pg (27.0-33.0); Mean Corpuscular Volume 84.3 fL (80.0-98.0); Mean Platelet Volume 11.8 fL (9.4-12.4); Monocytes Absolute Auto 0.3 X10*3/uL (0.1-1.2); Monocytes Percent Auto 5.2 % (2-11); NRBC Pct Auto 0.3 /100WBC (0.0-0.2); Neutrophils Absolute Auto 3.9 x10*3/uL (2.0-8.3); Neutrophils Percent Auto 61.9 % (45-73); Platelet Count 245 X10*3/uL (160-400); Red Blood Count 3.76 X10*6/uL (4.60-5.80); White Blood Count 6.3 X10*3/uL (4.8-10.8)
[2022-10-06 05:53] LABS: Glucose, Whole Blood 160 mg/dL (60-115)
[2022-10-06 05:58] LABS: Albumin Level 3.6 g/dL (3.5-5.0); Anion Gap 14 (12-20); Blood Urea Nitrogen 14 mg/dL (9-16); Carbon Dioxide 26 mmol/L (22-29); Chloride 103 mmol/L (96-108); Creatinine Clr Calc Pharmacy 112.3; Estimated Glomerular Filt Rate > 60; Glucose Random 152 mg/dL (60-115); Magnesium 1.9 mg/dL (1.6-2.6); Phosphorus 2.4 mg/dL (2.7-4.5); Potassium 3.9 mmol/L (3.3-5.1); Sodium 139 mmol/L (135-145)
[2022-10-06] MEDS: Potassium Phosphate/NS 15 MMOL/250 ML PLAST..BAG 62.5 MMOL IV (07:17)
[2022-10-06] MEDS: Chlorhexidine Gluc Oral Rinse 15 ML MOUTHWASH BUCCAL ×3 (07:17→20:46)
[2022-10-06] MEDS: Nystatin Powder 15 GM BOTTLE 1 APPL TOPICAL ×2 (07:17→20:47)
[2022-10-06] MEDS: Ammonium Lactate 12 % Cream 140 GM TUBE 1 APPL TOPICAL (07:17)
[2022-10-06] MEDS: Thiamine HCL 100 MG in 0.9 % Sodium Chloride 100 ML 202 MG IV (07:18)
[2022-10-06] MEDS: Insulin Glargine,Hum.rec.anlog 100 UNIT/ML 10 ML VIAL 10 UNIT SUBCUT (07:20)
[2022-10-06 11:54] LABS: Glucose, Whole Blood 161 mg/dL (60-115)
--- NOTE | 2022-10-06 12:12 | MHC.CM.PN ---
Pt continues in ICU on ventilatory support and not making clinical progress. CM attempted to contact pt's dtr and acting decision maker, Sulheily at number in EMR: message states not valid. This message also present when son's number attempted. Family has been in to visit pt: will request an updated contact number.
[2022-10-06] MEDS: propofoL 1,000 MG/100 ML VIAL 13.33 MG IVCONT ×2 (12:20→19:52)
--- NOTE | 2022-10-06 12:44 | PM.CCPN ---
Subjective Subjective Date of Service: 10/06/22 Interval History: 71-year-old gentleman with underlying history of systolic heart failure left and a right-sided, diabetes mellitus, AFib, hypertension admitted on 3 long-time 23 no with alcohol abuse/alcohol withdrawal further complicated by acute embolic infarct with hemorrhagic conversion, acute hypercapnic respiratory failure requiring intubation and ventilatory support. Patient respiratory status improved with diuresis and he was extubated on 09/24/2022. However, he remains significantly encephalopathic and continues to fail his swallow evaluation and his hospital course further complicated by recurrent hypernatremia and ongoing congestive heart failure. Overnight 09/28/2022 with development of respiratory distress secondary to metabolic lactic acidosis requiring intubation and ventilatory and vasopressor support. Also developed anuria. Blood cultures sent, started on empiric antibiotics. CT abdomen / pelvis with what appears to be embolic splenic and renal infarcts. Likely transient gastrointestinal ischemia. Evaluated by General surgery and deemed not to require surgical intervention at this time. No events overnight. Critical Care Time (minutes): 45 Physical Exam Vital Signs: Vital Signs: Last Vital Signs Temp 100.8 F H 10/06/22 12:00 Pulse 78 10/06/22 12:00 Resp 20 10/06/22 12:00 BP 126/69 10/06/22 12:00 Pulse Ox 95 10/06/22 12:00 O2 Del Method 10/06/22 12:00 O2 Flow Rate 25 10/05/22 00:00 FiO2 25 10/06/22 12:00 BMI result Body Mass Index 39.0 Const: General: no acute distress and other ( Sedated on the vent) Eyes: Sclerae: sclerae normal Neck: Neck: Yes no lymphadenopathy, Yes trachea midline and Yes supple Resp: Auscultation: crackles ( diffuse bilateral) Cardio: Rate: regular rate Rhythm: abnormal rhythm irregularly irregular Heart sounds: no gallops, no murmurs and no rubs GI: Palpation (GI): Soft to palpation and Other GI palpation findings present ( Nontender) Auscultation: normal bowel sounds Extrem: General: Yes no pedal edema, No clubbing and No cyanosis Objective Data Labs 10/06/22 04:48 10/06/22 04:48 Labs: Laboratory Results - last 24 hr 10/05/22 10/06/22 10/06/22 17:53 00:30 04:48 WBC RBC Hgb Hct MCV MCH MCHC RDW Plt Count MPV Immature Gran % (Auto) Neut % (Auto) Lymph % (Auto) [place] % (Auto) Eos % (Auto) Baso % (Auto) Lymph # (Auto) [place] # (Auto) Eos # (Auto) Baso # (Auto) Abs Immat Gran (auto) Absolute Neuts (auto) Absolute Nucleated RBC Nucleated RBC % (auto) VBG pH VBG pCO2 VBG pO2 VBG HCO3 VBG O2 Saturation VBG Base Excess Sodium 139 Potassium 3.9 Chloride 103 Carbon Dioxide 26 Anion Gap 14 BUN 14 Creatinine 0.77 Estim Creat Clear Calc 112.3 Estimated GFR > 60 POC Glucose 205 H 155 H Random Glucose 152 H Calcium 8.0 L Phosphorus 2.4 L Magnesium 1.9 Albumin 3.6 10/06/22 10/06/22 10/06/22 04:48 04:48 05:49 WBC 6.3 RBC 3.76 L Hgb 9.9 L Hct 31.7 L MCV 84.3 MCH 26.3 L MCHC 31.2 RDW 21.0 H Plt Count 245 MPV 11.8 Immature Gran % (Auto) 0.5 H Neut % (Auto) 61.9 Lymph % (Auto) 24.1 [place] % (Auto) 5.2 Eos % (Auto) 7.8 H Baso % (Auto) 0.5 Lymph # (Auto) 1.5 [place] # (Auto) 0.3 Eos # (Auto) 0.5 H Baso # (Auto) 0.0 Abs Immat Gran (auto) 0.03 Absolute Neuts (auto) 3.9 Absolute Nucleated RBC 0.020 H Nucleated RBC % (auto) 0.3 H VBG pH 7.52 H VBG pCO2 32 VBG pO2 48 VBG HCO3 26 VBG O2 Saturation 78.0 VBG Base Excess 4.4 Sodium Potassium Chloride Carbon Dioxide Anion Gap BUN Creatinine Estim Creat Clear Calc Estimated GFR POC Glucose 160 H Random Glucose Calcium Phosphorus Magnesium Albumin 10/06/22 11:49 WBC RBC Hgb Hct MCV MCH MCHC RDW Plt Count MPV Immature Gran % (Auto) Neut % (Auto) Lymph % (Auto) [place] % (Auto) Eos % (Auto) Baso % (Auto) Lymph # (Auto) [place] # (Auto) Eos # (Auto) Baso # (Auto) Abs Immat Gran (auto) Absolute Neuts (auto) Absolute Nucleated RBC Nucleated RBC % (auto) VBG pH VBG pCO2 VBG pO2 VBG HCO3 VBG O2 Saturation VBG Base Excess Sodium Potassium Chloride Carbon Dioxide Anion Gap BUN Creatinine Estim Creat Clear Calc Estimated GFR POC Glucose 161 H Random Glucose Calcium Phosphorus Magnesium Albumin Microbiology Microbiology Results: Microbiology 09/28/22 21:14 Blood - Venous Blood Culture - Final No growth after 5 days. 09/28/22 21:14 Blood - Venous Blood Culture - Final No growth after 5 days. 09/28/22 21:58 Sputum - Suctioned Gram Stain - Final 09/28/22 21:58 Sputum - Suctioned Sputum Culture - Final Strep agalactiae (Grp B) 09/21/22 04:00 Sputum - Suctioned Gram Stain - Final 09/21/22 04:00 Sputum - Suctioned Sputum Culture - Final No growth. 09/16/22 14:56 Blood - Venous Blood Culture - Final No growth after 5 days. 09/16/22 14:56 Blood - Venous Blood Culture - Final No growth after 5 days. Progress Note: A&P Assessment and plan (1) Embolic infarction: Status: Acute (2) Acute respiratory failure with hypoxia: Status: Acute (3) Acute on chronic clinical systolic heart failure: Status: Acute (4) Alcoholism: Status: Acute (5) Acute CVA (cerebrovascular accident): Status: Acute (6) Atrial fibrillation: Status: Acute Plan Assessment: 71-year-old gentleman admitted with alcohol intoxication and acute embolic stroke complicated by hemorrhagic conversion, delirium tremens, acute respiratory failure, acute on chronic systolic congestive heart failure, residual encephalopathy, and dysphagia Plan: Neuro: Acute ischemic stroke with hemorrhagic conversion, now with residual encephalopathy and persistent dysphagia. Family discussion about PEG placement ongoing. Cardiac: Acute on chronic biventricular systolic congestive heart failure. Underlying AFib On full-dose Lovenox. Cardiology service care appreciated. Pulmonary: Acute respiratory failure on the background of metabolic acidosis requiring ventilatory support. Continue to titrate off as tolerated. Renal: Acute renal failure, resolved. Continue to monitor renal indices and urine output. Hypernatremia, resolved. Intermittent diuretic to maintain euvolemia. Endo: No acute issues. Underlying diabetes mellitus. GI: No acute issues. ID: Blood cultures are negative to date. Will monitor off broad-spectrum antibiotics. Heme/Onc: No acute issues. Psych: No acute issues. Miscellaneous: Overall poor clinical prognosis, discussions of goals of care ongoing with the family. Awaiting son's visit. Prophylaxis: Lovenox, ppi Diet: Tube feeds Critical care time spent: 45 minutes Quality Stroke Does the patient have a stroke diagnosis?: No VTE Prior VTE?: No VTE Risk Level:: Medical - moderate - high VTE Device Contraindication: Treatment Not Indicated VTE Drug Contraindication: N/A - Med Ordered
--- NOTE | 2022-10-06 16:08 | MHC.CM.PN ---
Spoke with Veena re: ? of her brother coming to visit from correctional [facility]: She states her brother said the correction facility will not allow him to come to the hospital but will assist with a video call. Veena will bring the name and contact number of the facility tonight when she visits to facilitate a call. Veena states she is planning on [employer] once her brother has seen his father and can say his goodbye. ICU care team aware.
[2022-10-06 19:07] LABS: Glucose, Whole Blood 138 mg/dL (60-115)
[2022-10-07] VITALS (30 sets, daily range): BP systolic 109–140; BP diastolic 55–80; PULSE 64–89; RESP 16–21; TEMP 35–38.6; O2SAT 92–98; BMI 38.7
[2022-10-07 00:03] LABS: Glucose, Whole Blood 175 mg/dL (60-115)
[2022-10-07] MEDS: Insulin Lispro 100 UNIT/ML 3 ML VIAL SUBCUT ×3 (00:34→18:06)
[2022-10-07] MEDS: Enoxaparin Sodium 80 MG/0.8 ML SYRINGE SUBCUT ×2 (00:35→13:07)
[2022-10-07] MEDS: 0.9 % Sodium Chloride Flush 3 ML SYRINGE IVFLUSH ×4 (00:36→21:02)
[2022-10-07] MEDS: Acetaminophen Oral Liquid 650 MG/20.3 ML SOLUTION 975 MG PO ×2 (01:13→21:00)
[2022-10-07] MEDS: propofoL 1,000 MG/100 ML VIAL 13.33 MG IVCONT ×3 (03:08→16:03)
[2022-10-07 05:07] LABS: VBG Base Excess 2.8 mmol/L; VBG HCO3 24 mmol/L (22-26); VBG pCO2 29 mmHg; VBG pH 7.53 (7.32-7.43); VBG pO2 59 mmHg
[2022-10-07 05:38] LABS: MANUAL DIFF FLAG NO
[2022-10-07 06:01] LABS: Glucose, Whole Blood 149 mg/dL (60-115)
[2022-10-07 06:01] LABS: Basophils Percent Auto 0.5 % (0-2); Eosinophils Absolute Auto 0.2 X10*3/uL (0.0-0.4); Eosinophils Percent Auto 3.6 % (0-4); Hematocrit 33.8 % (42.0-52.0); Hemoglobin 10.7 g/dl (14.0-18.0); Imm Gran Abs Auto 0.06 X10*3/uL (0.00-0.03); Lymphocytes Absolute Auto 1.5 X10*3/uL (1.2-4.9); Lymphocytes Percent Auto 25.3 % (20-40); Mean Corpuscular HGB Conc 31.7 g/dl (31.0-36.0); Mean Corpuscular Hemoglobin 25.9 pg (27.0-33.0); Mean Corpuscular Volume 81.8 fL (80.0-98.0); Mean Platelet Volume 11.4 fL (9.4-12.4); Monocytes Absolute Auto 0.4 X10*3/uL (0.1-1.2); Monocytes Percent Auto 6.4 % (2-11); Neutrophils Absolute Auto 3.8 x10*3/uL (2.0-8.3); Neutrophils Percent Auto 63.2 % (45-73); Platelet Count 285 X10*3/uL (160-400); Red Blood Count 4.13 X10*6/uL (4.60-5.80); Red Cell Distribution Width 21.2 % (11.0-16.0); White Blood Count 6.1 X10*3/uL (4.8-10.8)
[2022-10-07 06:14] LABS: Albumin Level 3.2 g/dL (3.5-5.0); Anion Gap 14 (12-20); Blood Urea Nitrogen 15 mg/dL (9-16); Calcium 8.2 mg/dL (8.4-10.2); Carbon Dioxide 25 mmol/L (22-29); Chloride 102 mmol/L (96-108); Estimated Glomerular Filt Rate > 60; Glucose Random 168 mg/dL (60-115); Potassium 4.2 mmol/L (3.3-5.1); Sodium 137 mmol/L (135-145)
[2022-10-07 08:47] LABS: Venous Blood Gas Refer to POC result
[2022-10-07] MEDS: Chlorhexidine Gluc Oral Rinse 15 ML MOUTHWASH BUCCAL ×3 (09:36→21:01)
[2022-10-07] MEDS: Thiamine HCL 100 MG in 0.9 % Sodium Chloride 100 ML 202 MG IV (09:37)
[2022-10-07] MEDS: Nystatin Powder 15 GM BOTTLE 1 APPL TOPICAL ×2 (09:37→21:01)
[2022-10-07] MEDS: Ammonium Lactate 12 % Cream 140 GM TUBE 1 APPL TOPICAL (09:37)
[2022-10-07] MEDS: Insulin Glargine,Hum.rec.anlog 100 UNIT/ML 10 ML VIAL 10 UNIT SUBCUT (09:37)
--- NOTE | 2022-10-07 10:42 | MHC.CLN ---
F/U PATIENT REMAINS INTUBATED AND SEDATED TOLERATING CURRENT TUBE FEEDINGS PT RECEIVING PROMOTE AT MAX GOAL RATE 60 ML PER HOUR WITH 240 ML WATER FLUSHES Q 4 HOURS PROVIDES: 1440 KCALS (1792 KCALS WITH SEDATION; 24 KCALS/KG IBW); 90 G PROTEIN (1.2 G/KG IBW); 2648 ML FREE WATER FROM FORMULA AND FLUSH (35.1 ML/KG IBW) SKIN WITH DTI TO BILATERAL BUTTOCKS AND RIGHT LATERAL HEEL-TF TO PROMOTE WOUND HEALING MONITOR TOLERANCE, RESIDUALS AND LYTES AWAITING FAMILY FOR FINAL DECISIONS FOLLOWING WITH TEAM
[2022-10-07 12:09] LABS: Glucose, Whole Blood 173 mg/dL (60-115)
--- NOTE | 2022-10-07 13:30 | PM.CCPN ---
Subjective Subjective Date of Service: 10/07/22 Interval History: 71-year-old gentleman with underlying history of systolic heart failure left and a right-sided, diabetes mellitus, AFib, hypertension admitted on 3 long-time 23 no with alcohol abuse/alcohol withdrawal further complicated by acute embolic infarct with hemorrhagic conversion, acute hypercapnic respiratory failure requiring intubation and ventilatory support. Patient respiratory status improved with diuresis and he was extubated on 09/24/2022. However, he remains significantly encephalopathic and continues to fail his swallow evaluation and his hospital course further complicated by recurrent hypernatremia and ongoing congestive heart failure. Overnight 09/28/2022 with development of respiratory distress secondary to metabolic lactic acidosis requiring intubation and ventilatory and vasopressor support. Also developed anuria. Blood cultures sent, started on empiric antibiotics. CT abdomen / pelvis with what appears to be embolic splenic and renal infarcts. Likely transient gastrointestinal ischemia. Evaluated by General surgery and deemed not to require surgical intervention at this time. No events overnight. Critical Care Time (minutes): 45 Physical Exam Vital Signs: Vital Signs: Last Vital Signs Temp 100.2 F 10/07/22 13:00 Pulse 76 10/07/22 13:00 Resp 18 10/07/22 13:00 BP 136/79 10/07/22 13:00 Pulse Ox 93 10/07/22 13:00 O2 Del Method 10/07/22 13:00 O2 Flow Rate 25 10/05/22 00:00 FiO2 30 10/07/22 13:00 BMI result Body Mass Index 38.7 Const: General: no acute distress and other (Sedated on the vent) Eyes: Sclerae: sclerae normal Neck: Neck: Yes no lymphadenopathy, Yes trachea midline and Yes supple Resp: Auscultation: crackles (Mild bilateral) Cardio: Rate: regular rate Rhythm: abnormal rhythm irregularly irregular Heart sounds: no gallops, no murmurs and no rubs GI: Palpation (GI): Soft to palpation and Other GI palpation findings present ( Nontender) Auscultation: normal bowel sounds Extrem: General: No clubbing, No cyanosis and Yes edema (2+ bilateral) Objective Data Labs 10/07/22 05:03 10/07/22 05:02 Labs: Laboratory Results - last 24 hr 10/06/22 10/06/22 10/07/22 19:01 23:56 04:59 WBC RBC Hgb Hct MCV MCH MCHC RDW Plt Count MPV Immature Gran % (Auto) Neut % (Auto) Lymph % (Auto) [place] % (Auto) Eos % (Auto) Baso % (Auto) Lymph # (Auto) [place] # (Auto) Eos # (Auto) Baso # (Auto) Abs Immat Gran (auto) Absolute Neuts (auto) Absolute Nucleated RBC Nucleated RBC % (auto) VBG pH 7.53 H VBG pCO2 29 VBG pO2 59 VBG HCO3 24 VBG O2 Saturation 89.0 VBG Base Excess 2.8 Sodium Potassium Chloride Carbon Dioxide Anion Gap BUN Creatinine Estim Creat Clear Calc Estimated GFR POC Glucose 138 H 175 H Random Glucose Calcium Phosphorus Magnesium Albumin 10/07/22 10/07/22 10/07/22 05:02 05:03 05:51 WBC 6.1 RBC 4.13 L Hgb 10.7 L Hct 33.8 L MCV 81.8 MCH 25.9 L MCHC 31.7 RDW 21.2 H Plt Count 285 MPV 11.4 Immature Gran % (Auto) 1.0 H Neut % (Auto) 63.2 Lymph % (Auto) 25.3 [place] % (Auto) 6.4 Eos % (Auto) 3.6 Baso % (Auto) 0.5 Lymph # (Auto) 1.5 [place] # (Auto) 0.4 Eos # (Auto) 0.2 Baso # (Auto) 0.0 Abs Immat Gran (auto) 0.06 H Absolute Neuts (auto) 3.8 Absolute Nucleated RBC 0.000 Nucleated RBC % (auto) 0.0 VBG pH VBG pCO2 VBG pO2 VBG HCO3 VBG O2 Saturation VBG Base Excess Sodium 137 Potassium 4.2 Chloride 102 Carbon Dioxide 25 Anion Gap 14 BUN 15 Creatinine 0.81 Estim Creat Clear Calc 107.0 Estimated GFR > 60 POC Glucose 149 H Random Glucose 168 H Calcium 8.2 L Phosphorus 3.0 Magnesium 2.0 Albumin 3.2 L 10/07/22 12:04 WBC RBC Hgb Hct MCV MCH MCHC RDW Plt Count MPV Immature Gran % (Auto) Neut % (Auto) Lymph % (Auto) [place] % (Auto) Eos % (Auto) Baso % (Auto) Lymph # (Auto) [place] # (Auto) Eos # (Auto) Baso # (Auto) Abs Immat Gran (auto) Absolute Neuts (auto) Absolute Nucleated RBC Nucleated RBC % (auto) VBG pH VBG pCO2 VBG pO2 VBG HCO3 VBG O2 Saturation VBG Base Excess Sodium Potassium Chloride Carbon Dioxide Anion Gap BUN Creatinine Estim Creat Clear Calc Estimated GFR POC Glucose 173 H Random Glucose Calcium Phosphorus Magnesium Albumin Microbiology Microbiology Results: Microbiology 09/28/22 21:14 Blood - Venous Blood Culture - Final No growth after 5 days. 09/28/22 21:14 Blood - Venous Blood Culture - Final No growth after 5 days. 09/28/22 21:58 Sputum - Suctioned Gram Stain - Final 09/28/22 21:58 Sputum - Suctioned Sputum Culture - Final Strep agalactiae (Grp B) 09/21/22 04:00 Sputum - Suctioned Gram Stain - Final 09/21/22 04:00 Sputum - Suctioned Sputum Culture - Final No growth. 09/16/22 14:56 Blood - Venous Blood Culture - Final No growth after 5 days. 09/16/22 14:56 Blood - Venous Blood Culture - Final No growth after 5 days. Progress Note: A&P Assessment and plan (1) Embolic infarction: Status: Acute (2) Acute respiratory failure with hypoxia: Status: Acute (3) Diabetes: Status: Acute (4) Acute on chronic clinical systolic heart failure: Status: Acute (5) Ischemic congestive cardiomyopathy: Status: Acute (6) Alcoholism: Status: Acute (7) Acute CVA (cerebrovascular accident): Status: Acute (8) Atrial fibrillation: Status: Acute Plan Assessment: 71-year-old gentleman admitted with alcohol intoxication and acute embolic stroke complicated by hemorrhagic conversion, delirium tremens, acute respiratory failure, acute on chronic systolic congestive heart failure, residual encephalopathy, and dysphagia Plan: Neuro: Acute ischemic stroke with hemorrhagic conversion, now with residual encephalopathy and persistent dysphagia. Family discussion about PEG placement ongoing. Cardiac: Acute on chronic biventricular systolic congestive heart failure. Underlying AFib On full-dose Lovenox. Cardiology service care appreciated. Pulmonary: Acute respiratory failure on the background of metabolic acidosis requiring ventilatory support. Continue to titrate off as tolerated. Renal: Acute renal failure, resolved. Continue to monitor renal indices and urine output. Hypernatremia, resolved. Intermittent diuretic to maintain euvolemia. Endo: No acute issues. Underlying diabetes mellitus. GI: No acute issues. ID: No acute issues. Heme/Onc: No acute issues. Psych: No acute issues. Miscellaneous: Overall poor clinical prognosis, discussions of goals of care ongoing with the family. Awaiting son's visit. Prophylaxis: Lovenox, ppi Diet: Tube feeds Critical care time spent: 45 minutes Quality Stroke Does the patient have a stroke diagnosis?: No VTE Prior VTE?: No VTE Risk Level:: Medical - moderate - high VTE Device Contraindication: Treatment Not Indicated VTE Drug Contraindication: N/A - Med Ordered
--- NOTE | 2022-10-07 16:07 | MHC.CM.PN ---
THIS CM SET UP ZOOM VISIT AT 2 PM WITH PT AND SON/HCP VAHID WHO IS CURRENTLY INCARCERATED. AFTER VISIT SON STATES HE WILL SPEAK WITH HIS SISTER REGARDING PLAN AND IS WILLING TO SIGN ANY PAPERS WE NEED HIM TO SIGN. CM WILL CONTINUE TO FOLLOW.
[2022-10-07 18:10] LABS: Glucose, Whole Blood 211 mg/dL (60-115)
[2022-10-07 23:55] LABS: Glucose, Whole Blood 190 mg/dL (60-115)
[2022-10-08] VITALS (29 sets, daily range): BP systolic 114–136; BP diastolic 17–81; PULSE 62–84; RESP 15–21; TEMP 34–38.1; O2SAT 91–98; BMI 38.7
[2022-10-08] MEDS: Enoxaparin Sodium 80 MG/0.8 ML SYRINGE SUBCUT ×2 (00:13→12:07)
[2022-10-08] MEDS: Insulin Lispro 100 UNIT/ML 3 ML VIAL SUBCUT ×4 (00:13→18:13)
[2022-10-08] MEDS: propofoL 1,000 MG/100 ML VIAL 13.33 MG IVCONT ×4 (00:13→18:38)
[2022-10-08 06:12] LABS: Glucose, Whole Blood 158 mg/dL (60-115)
[2022-10-08 06:31] LABS: VBG Base Excess 3.7 mmol/L; VBG HCO3 26 mmol/L (22-26); VBG pCO2 35 mmHg; VBG pH 7.48 (7.32-7.43); VBG pO2 34 mmHg
[2022-10-08 06:55] LABS: MANUAL DIFF FLAG NO
[2022-10-08 07:01] LABS: Basophils Absolute Auto 0.1 X10*3/uL (0.0-0.2); Basophils Percent Auto 0.7 % (0-2); Eosinophils Absolute Auto 0.3 X10*3/uL (0.0-0.4); Eosinophils Percent Auto 4.5 % (0-4); Hematocrit 35.4 % (42.0-52.0); Hemoglobin 11.1 g/dl (14.0-18.0); Imm Gran Abs Auto 0.06 X10*3/uL (0.00-0.03); Imm Gran Pct Auto 0.9 % (0.0-0.4); Lymphocytes Absolute Auto 1.7 X10*3/uL (1.2-4.9); Lymphocytes Percent Auto 25.2 % (20-40); Mean Corpuscular HGB Conc 31.4 g/dl (31.0-36.0); Mean Corpuscular Hemoglobin 25.8 pg (27.0-33.0); Mean Corpuscular Volume 82.3 fL (80.0-98.0); Mean Platelet Volume 11.4 fL (9.4-12.4); Monocytes Absolute Auto 0.4 X10*3/uL (0.1-1.2); Monocytes Percent Auto 6.1 % (2-11); NRBC Pct Auto 0.4 /100WBC (0.0-0.2); Neutrophils Absolute Auto 4.2 x10*3/uL (2.0-8.3); Neutrophils Percent Auto 62.6 % (45-73); Platelet Count 368 X10*3/uL (160-400); Red Cell Distribution Width 21.2 % (11.0-16.0); White Blood Count 6.7 X10*3/uL (4.8-10.8)
[2022-10-08 07:18] LABS: Albumin Level 3.1 g/dL (3.5-5.0); Anion Gap 13 (12-20); Blood Urea Nitrogen 14 mg/dL (9-16); Calcium 8.4 mg/dL (8.4-10.2); Carbon Dioxide 27 mmol/L (22-29); Chloride 101 mmol/L (96-108); Creatinine Clr Calc Pharmacy 106.6; Estimated Glomerular Filt Rate > 60; Glucose Random 151 mg/dL (60-115); Magnesium 2.1 mg/dL (1.6-2.6); Phosphorus 2.9 mg/dL (2.7-4.5); Potassium 4.2 mmol/L (3.3-5.1); Sodium 137 mmol/L (135-145)
[2022-10-08] MEDS: Insulin Glargine,Hum.rec.anlog 100 UNIT/ML 10 ML VIAL 10 UNIT SUBCUT (07:37)
[2022-10-08] MEDS: Thiamine HCL 100 MG in 0.9 % Sodium Chloride 100 ML 202 MG IV (07:37)
[2022-10-08] MEDS: 0.9 % Sodium Chloride Flush 3 ML SYRINGE IVFLUSH ×2 (07:38→15:57)
[2022-10-08] MEDS: Chlorhexidine Gluc Oral Rinse 15 ML MOUTHWASH BUCCAL ×3 (07:38→22:03)
[2022-10-08 08:07] LABS: Venous Blood Gas Refer to POC result
[2022-10-08] MEDS: Ammonium Lactate 12 % Cream 140 GM TUBE 1 APPL TOPICAL (08:21)
[2022-10-08] MEDS: Nystatin Powder 15 GM BOTTLE 1 APPL TOPICAL ×2 (08:22→22:03)
[2022-10-08 11:19] LABS: Glucose, Whole Blood 167 mg/dL (60-115)
--- NOTE | 2022-10-08 11:39 | P.PNCC_ITS ---
Subjective Subjective Date of Service: 10/08/22 Interval History: 71-year-old gentleman with underlying history of systolic heart failure left and a right-sided, diabetes mellitus, AFib, hypertension admitted on 3 long-time 23 no with alcohol abuse/alcohol withdrawal further complicated by acute embolic infarct with hemorrhagic conversion, acute hypercapnic respiratory failure requiring intubation and ventilatory support. Patient respiratory status improved with diuresis and he was extubated on 09/24/2022. However, he remains significantly encephalopathic and continues to fail his swallow evaluation and his hospital course further complicated by recurrent hypernatremia and ongoing congestive heart failure. Overnight 09/28/2022 with development of respiratory distress secondary to metabolic lactic acidosis requiring intubation and ventilatory and vasopressor support. Also developed anuria. Blood cultures sent, started on empiric antibiotics. CT abdomen / pelvis with what appears to be embolic splenic and renal infarcts. Likely transient gastrointestinal ischemia. Evaluated by General surgery and deemed not to require surgical intervention at this time. No events overnight. Critical Care Time (minutes): 45 Physical Exam Vital Signs: Vital Signs: Last Vital Signs Temp 99.7 F 10/08/22 11:00 Pulse 65 10/08/22 11:00 Resp 18 10/08/22 11:00 BP 131/69 10/08/22 11:00 Pulse Ox 96 10/08/22 11:00 O2 Del Method Mechanical Ventil ation 10/08/22 11:00 O2 Flow Rate 25 10/05/22 00:00 FiO2 25 10/08/22 11:08 BMI result Body Mass Index 38.7 Const: General: no acute distress and other (Sedated on the vent) Nutritional Appearance: Edematous Eyes: Sclerae: sclerae normal Neck: Neck: Yes no lymphadenopathy, Yes trachea midline and Yes supple Resp: Auscultation: crackles (Bilateral) Cardio: Rate: regular rate Rhythm: abnormal rhythm irregularly irregular Heart sounds: no gallops, no murmurs and no rubs GI: Palpation (GI): Soft to palpation and Other GI palpation findings present ( Nontender) Auscultation: normal bowel sounds Extrem: General: No clubbing, No cyanosis and Yes edema (2+ bilateral) Objective Data Labs 10/08/22 06:24 10/08/22 06:24 Labs: Laboratory Results - last 24 hr 10/07/22 10/07/22 10/07/22 12:04 18:04 23:51 WBC RBC Hgb Hct MCV MCH MCHC RDW Plt Count MPV Immature Gran % (Auto) Neut % (Auto) Lymph % (Auto) [place] % (Auto) Eos % (Auto) Baso % (Auto) Lymph # (Auto) [place] # (Auto) Eos # (Auto) Baso # (Auto) Abs Immat Gran (auto) Absolute Neuts (auto) Absolute Nucleated RBC Nucleated RBC % (auto) VBG pH VBG pCO2 VBG pO2 VBG HCO3 VBG O2 Saturation VBG Base Excess Sodium Potassium Chloride Carbon Dioxide Anion Gap BUN Creatinine Estim Creat Clear Calc Estimated GFR POC Glucose 173 H 211 H 190 H Random Glucose Calcium Phosphorus Magnesium Albumin 10/08/22 10/08/22 10/08/22 06:05 06:23 06:24 WBC 6.7 RBC 4.30 L Hgb 11.1 L Hct 35.4 L MCV 82.3 MCH 25.8 L MCHC 31.4 RDW 21.2 H Plt Count 368 D MPV 11.4 Immature Gran % (Auto) 0.9 H Neut % (Auto) 62.6 Lymph % (Auto) 25.2 [place] % (Auto) 6.1 Eos % (Auto) 4.5 H Baso % (Auto) 0.7 Lymph # (Auto) 1.7 [place] # (Auto) 0.4 Eos # (Auto) 0.3 Baso # (Auto) 0.1 Abs Immat Gran (auto) 0.06 H Absolute Neuts (auto) 4.2 Absolute Nucleated RBC 0.030 H Nucleated RBC % (auto) 0.4 H VBG pH 7.48 H VBG pCO2 35 VBG pO2 34 VBG HCO3 26 VBG O2 Saturation 49.0 VBG Base Excess 3.7 Sodium Potassium Chloride Carbon Dioxide Anion Gap BUN Creatinine Estim Creat Clear Calc Estimated GFR POC Glucose 158 H Random Glucose Calcium Phosphorus Magnesium Albumin 10/08/22 10/08/22 06:24 11:16 WBC RBC Hgb Hct MCV MCH MCHC RDW Plt Count MPV Immature Gran % (Auto) Neut % (Auto) Lymph % (Auto) [place] % (Auto) Eos % (Auto) Baso % (Auto) Lymph # (Auto) [place] # (Auto) Eos # (Auto) Baso # (Auto) Abs Immat Gran (auto) Absolute Neuts (auto) Absolute Nucleated RBC Nucleated RBC % (auto) VBG pH VBG pCO2 VBG pO2 VBG HCO3 VBG O2 Saturation VBG Base Excess Sodium 137 Potassium 4.2 Chloride 101 Carbon Dioxide 27 Anion Gap 13 BUN 14 Creatinine 0.81 Estim Creat Clear Calc 106.6 Estimated GFR > 60 POC Glucose 167 H Random Glucose 151 H Calcium 8.4 Phosphorus 2.9 Magnesium 2.1 Albumin 3.1 L Microbiology Microbiology Results: Microbiology 09/28/22 21:14 Blood - Venous Blood Culture - Final No growth after 5 days. 09/28/22 21:14 Blood - Venous Blood Culture - Final No growth after 5 days. 09/28/22 21:58 Sputum - Suctioned Gram Stain - Final 09/28/22 21:58 Sputum - Suctioned Sputum Culture - Final Strep agalactiae (Grp B) 09/21/22 04:00 Sputum - Suctioned Gram Stain - Final 09/21/22 04:00 Sputum - Suctioned Sputum Culture - Final No growth. 09/16/22 14:56 Blood - Venous Blood Culture - Final No growth after 5 days. 09/16/22 14:56 Blood - Venous Blood Culture - Final No growth after 5 days. Progress Note: A&P Assessment and plan (1) Embolic infarction: Status: Acute (2) Acute respiratory failure with hypoxia: Status: Acute (3) Diabetes: Status: Acute (4) Acute on chronic clinical systolic heart failure: Status: Acute (5) Alcoholism: Status: Acute (6) Acute CVA (cerebrovascular accident): Status: Acute (7) Atrial fibrillation: Status: Acute Plan Assessment: 71-year-old gentleman admitted with alcohol intoxication and acute embolic stroke complicated by hemorrhagic conversion, delirium tremens, acute respiratory failure, acute on chronic systolic congestive heart failure, residua l encephalopathy, and dysphagia Plan: Neuro: Acute ischemic stroke with hemorrhagic conversion, now with residual encephalopathy and persistent dysphagia. Cardiac: Acute on chronic biventricular systolic congestive heart failure. Underlying AFib On full-dose Lovenox. Cardiology service care appreciated. Pulmonary: Acute respiratory failure on the background of metabolic acidosis requiring ventilatory support. Continue to titrate off as tolerated. Renal: Acute renal failure, resolved. Continue to monitor renal indices and urine output. Hypernatremia, resolved. Intermittent diuretic to maintain euvolemia. Endo: No acute issues. Underlying diabetes mellitus. GI: No acute issues. ID: No acute issues. Heme/Onc: No acute issues. Psych: No acute issues. Miscellaneous: Overall poor clinical prognosis, discussions of goals of care ongoing with the family. Family is considering switched to palliation. Prophylaxis: Lovenox, ppi Diet: Tube feeds Critical care time spent: 45 minutes Quality Stroke Does the patient have a stroke diagnosis?: No VTE Prior VTE?: No VTE Risk Level:: Medical - moderate - high VTE Device Contraindication: Treatment Not Indicated VTE Drug Contraindication: N/A - Med Ordered
--- NOTE | 2022-10-08 13:24 | MHC.CM.PN ---
Pt's son (and primary HCP) Abimael was able to have a Zoom visit on 10/07 from his group home center. Abimael will speak with his sister Stephanie re: [employer] measures. states he will contact Stephanie today to discuss care decisions. CM to follow
[2022-10-08 17:33] LABS: Glucose, Whole Blood 179 mg/dL (60-115)
[2022-10-09] VITALS (25 sets, daily range): BP systolic 123–144; BP diastolic 63–84; PULSE 72–93; RESP 12–23; TEMP 35–38.2; O2SAT 92–97; BMI 39.0
[2022-10-09] LABS: Glucose, Whole Blood 153 mg/dL (60-115)
[2022-10-09] MEDS: propofoL 1,000 MG/100 ML VIAL 13.33 MG IVCONT ×2 (01:23→06:23)
[2022-10-09] MEDS: Enoxaparin Sodium 80 MG/0.8 ML SYRINGE SUBCUT ×2 (01:28→12:00)
[2022-10-09] MEDS: 0.9 % Sodium Chloride Flush 3 ML SYRINGE IVFLUSH ×3 (01:29→14:48)
[2022-10-09 05:38] LABS: VBG Base Excess 3.7 mmol/L; VBG HCO3 25 mmol/L (22-26); VBG pCO2 30 mmHg; VBG pH 7.53 (7.32-7.43); VBG pO2 52 mmHg
[2022-10-09 05:41] LABS: MANUAL DIFF FLAG NO
[2022-10-09 05:45] LABS: Basophils Absolute Auto 0.1 X10*3/uL (0.0-0.2); Basophils Percent Auto 0.6 % (0-2); Eosinophils Absolute Auto 0.3 X10*3/uL (0.0-0.4); Eosinophils Percent Auto 3.9 % (0-4); Hematocrit 31.2 % (42.0-52.0); Imm Gran Abs Auto 0.06 X10*3/uL (0.00-0.03); Imm Gran Pct Auto 0.8 % (0.0-0.4); Lymphocytes Absolute Auto 2.1 X10*3/uL (1.2-4.9); Lymphocytes Percent Auto 27.7 % (20-40); Mean Corpuscular HGB Conc 32.1 g/dl (31.0-36.0); Mean Corpuscular Hemoglobin 26.1 pg (27.0-33.0); Mean Corpuscular Volume 81.5 fL (80.0-98.0); Monocytes Absolute Auto 0.5 X10*3/uL (0.1-1.2); Monocytes Percent Auto 6.4 % (2-11); NRBC Pct Auto 0.3 /100WBC (0.0-0.2); Neutrophils Absolute Auto 4.7 x10*3/uL (2.0-8.3); Neutrophils Percent Auto 60.6 % (45-73); Platelet Count 395 X10*3/uL (160-400); Red Blood Count 3.83 X10*6/uL (4.60-5.80); Red Cell Distribution Width 21.2 % (11.0-16.0); White Blood Count 7.7 X10*3/uL (4.8-10.8)
[2022-10-09 06:05] LABS: Albumin Level 2.8 g/dL (3.5-5.0); Anion Gap 13 (12-20); Blood Urea Nitrogen 15 mg/dL (9-16); Calcium 8.2 mg/dL (8.4-10.2); Carbon Dioxide 24 mmol/L (22-29); Chloride 102 mmol/L (96-108); Creatinine Clr Calc Pharmacy 115.6; Estimated Glomerular Filt Rate > 60; Glucose Random 188 mg/dL (60-115); Phosphorus 2.8 mg/dL (2.7-4.5); Potassium 4.4 mmol/L (3.3-5.1); Sodium 135 mmol/L (135-145)
[2022-10-09 06:17] LABS: Glucose, Whole Blood 168 mg/dL (60-115)
[2022-10-09] MEDS: Insulin Lispro 100 UNIT/ML 3 ML VIAL SUBCUT ×2 (06:22→11:58)
[2022-10-09 06:45] LABS: Venous Blood Gas Refer to POC result
[2022-10-09] MEDS: Nystatin Powder 15 GM BOTTLE 1 APPL TOPICAL (08:07)
[2022-10-09] MEDS: Ammonium Lactate 12 % Cream 140 GM TUBE 1 APPL TOPICAL (08:07)
[2022-10-09] MEDS: Chlorhexidine Gluc Oral Rinse 15 ML MOUTHWASH BUCCAL ×2 (08:12→13:40)
[2022-10-09] MEDS: Insulin Glargine,Hum.rec.anlog 100 UNIT/ML 10 ML VIAL 10 UNIT SUBCUT (08:12)
[2022-10-09] MEDS: Thiamine HCL 100 MG in 0.9 % Sodium Chloride 100 ML 202 MG IV (08:21)
[2022-10-09] MEDS: Albumin Human 25 % 100 ML IV ×2 (08:32→13:40)
[2022-10-09] MEDS: Furosemide 40 MG/4 ML VIAL IVPUSH (08:32)
--- NOTE | 2022-10-09 10:28 | MHC.CLN ---
F/U PATIENT REMAINS INTUBATED AND SEDATED TOLERATING CURRENT TUBE FEEDINGS PT RECEIVING PROMOTE AT MAX GOAL RATE 60 ML PER HOUR WITH 240 ML WATER FLUSHES Q 4 HOURS PROVIDES: 1440 KCALS (1792 KCALS WITH SEDATION; 24 KCALS/KG IBW); 90 G PROTEIN (1.2 G/KG IBW); 2648 ML FREE WATER FROM FORMULA AND FLUSH (35.1 ML/KG IBW) SKIN WITH DTI TO BILATERAL BUTTOCKS AND RIGHT LATERAL HEEL-TF TO PROMOTE WOUND HEALING MONITOR TOLERANCE, RESIDUALS AND LYTES FOLLOWING WITH TEAM
--- NOTE | 2022-10-09 10:49 | MHC.CM.PN ---
ARMAAN SPOKE WITH PATIENTS DTR VIA PHONE. SHE WILL BE COMING IN TO SEE HER FATHER TODAY. THE FAMILY HAS MADE A DECISION. SHE WILL RELAY THAT DECISION IN PERSON TODAY. ARMAAN WILL MEET WITH HER WHEN SHE COMES IN TODAY.
[2022-10-09 11:58] LABS: Glucose, Whole Blood 202 mg/dL (60-115)
--- NOTE | 2022-10-09 13:45 | PM.CCN ---
Critical Care Event Note Summary Date of Service: 10/09/22 Code activated: No Narrative: Overall poor clinical prognosis for meaningful recovery and underlying ongoing risk for further embolic events discussed with the family/HCP who decided to switch goals of care to palliation. Code status changed to comfort measures only. Will plan for terminal extubation. Critical Care Time (minutes): 0
[2022-10-09] MEDS: fentaNYL citrate/NS 1,000 MCG/100 ML PLAST..BAG 2.5 MCG IVCONT (14:46)
--- NOTE | 2022-10-09 16:49 | PM.CCPN ---
Subjective Subjective Date of Service: 10/09/22 Interval History: 71-year-old gentleman with underlying history of systolic heart failure left and a right-sided, diabetes mellitus, AFib, hypertension admitted on 3 long-time 23 no with alcohol abuse/alcohol withdrawal further complicated by acute embolic infarct with hemorrhagic conversion, acute hypercapnic respiratory failure requiring intubation and ventilatory support. Patient respiratory status improved with diuresis and he was extubated on 09/24/2022. However, he remains significantly encephalopathic and continues to fail his swallow evaluation and his hospital course further complicated by recurrent hypernatremia and ongoing congestive heart failure. Overnight 09/28/2022 with development of respiratory distress secondary to metabolic lactic acidosis requiring intubation and ventilatory and vasopressor support. Also developed anuria. Blood cultures sent, started on empiric antibiotics. CT abdomen / pelvis with what appears to be embolic splenic and renal infarcts. Likely transient gastrointestinal ischemia. Evaluated by General surgery and deemed not to require surgical intervention at this time. After prolonged consideration consideration and multiple discussions of minimal chance of meaningful recovery family/healthcare proxy decided to switch goals of care to palliative measures only. Code status changed to comfort measures only and patient is planned for terminal extubation. Critical Care Time (minutes): 45 Physical Exam Vital Signs: Vital Signs: Last Vital Signs Temp 100.8 F H 10/09/22 16:00 Pulse 91 10/09/22 16:00 Resp 16 10/09/22 16:00 BP 133/79 10/09/22 16:00 Pulse Ox 93 10/09/22 16:00 O2 Del Method Mechanical Ventil ation 10/09/22 16:00 O2 Flow Rate 25 10/05/22 00:00 FiO2 21 10/09/22 16:42 BMI result Body Mass Index 39.0 Const: General: no acute distress and other (Comfortable) Nutritional Appearance: Edematous Eyes: Sclerae: sclerae normal Neck: Neck: Yes no lymphadenopathy Resp: Effort & Inspection: normal respiratory effort Cardio: Rate: regular rate Rhythm: abnormal rhythm irregularly irregular GI: Palpation (GI): Soft to palpation and Other GI palpation findings present ( Nontender) Auscultation: normal bowel sounds Extrem: General: No clubbing, No cyanosis and Yes edema (2+ bilateral) Objective Data Labs 10/09/22 05:27 10/09/22 05:27 Labs: Laboratory Results - last 24 hr 10/08/22 10/08/22 10/09/22 17:30 23:56 05:27 WBC 7.7 RBC 3.83 L Hgb 10.0 L Hct 31.2 L MCV 81.5 MCH 26.1 L MCHC 32.1 RDW 21.2 H Plt Count 395 MPV 11.0 Immature Gran % (Auto) 0.8 H Neut % (Auto) 60.6 Lymph % (Auto) 27.7 [place] % (Auto) 6.4 Eos % (Auto) 3.9 Baso % (Auto) 0.6 Lymph # (Auto) 2.1 [place] # (Auto) 0.5 Eos # (Auto) 0.3 Baso # (Auto) 0.1 Abs Immat Gran (auto) 0.06 H Absolute Neuts (auto) 4.7 Absolute Nucleated RBC 0.020 H Nucleated RBC % (auto) 0.3 H VBG pH VBG pCO2 VBG pO2 VBG HCO3 VBG O2 Saturation VBG Base Excess Sodium Potassium Chloride Carbon Dioxide Anion Gap BUN Creatinine Estim Creat Clear Calc Estimated GFR POC Glucose 179 H 153 H Random Glucose Calcium Phosphorus Magnesium Albumin 10/09/22 10/09/22 10/09/22 05:27 05:30 06:13 WBC RBC Hgb Hct MCV MCH MCHC RDW Plt Count MPV Immature Gran % (Auto) Neut % (Auto) Lymph % (Auto) [place] % (Auto) Eos % (Auto) Baso % (Auto) Lymph # (Auto) [place] # (Auto) Eos # (Auto) Baso # (Auto) Abs Immat Gran (auto) Absolute Neuts (auto) Absolute Nucleated RBC Nucleated RBC % (auto) VBG pH 7.53 H VBG pCO2 30 VBG pO2 52 VBG HCO3 25 VBG O2 Saturation 81.0 VBG Base Excess 3.7 Sodium 135 Potassium 4.4 Chloride 102 Carbon Dioxide 24 Anion Gap 13 BUN 15 Creatinine 0.75 Estim Creat Clear Calc 115.6 Estimated GFR > 60 POC Glucose 168 H Random Glucose 188 H Calcium 8.2 L Phosphorus 2.8 Magnesium 2.0 Albumin 2.8 L 10/09/22 11:54 WBC RBC Hgb Hct MCV MCH MCHC RDW Plt Count MPV Immature Gran % (Auto) Neut % (Auto) Lymph % (Auto) [place] % (Auto) Eos % (Auto) Baso % (Auto) Lymph # (Auto) [place] # (Auto) Eos # (Auto) Baso # (Auto) Abs Immat Gran (auto) Absolute Neuts (auto) Absolute Nucleated RBC Nucleated RBC % (auto) VBG pH VBG pCO2 VBG pO2 VBG HCO3 VBG O2 Saturation VBG Base Excess Sodium Potassium Chloride Carbon Dioxide Anion Gap BUN Creatinine Estim Creat Clear Calc Estimated GFR POC Glucose 202 H Random Glucose Calcium Phosphorus Magnesium Albumin Microbiology Microbiology Results: Microbiology 09/28/22 21:14 Blood - Venous Blood Culture - Final No growth after 5 days. 09/28/22 21:14 Blood - Venous Blood Culture - Final No growth after 5 days. 09/28/22 21:58 Sputum - Suctioned Gram Stain - Final 09/28/22 21:58 Sputum - Suctioned Sputum Culture - Final Strep agalactiae (Grp B) 09/21/22 04:00 Sputum - Suctioned Gram Stain - Final 09/21/22 04:00 Sputum - Suctioned Sputum Culture - Final No growth. 09/16/22 14:56 Blood - Venous Blood Culture - Final No growth after 5 days. 09/16/22 14:56 Blood - Venous Blood Culture - Final No growth after 5 days. Progress Note: A&P Assessment and plan (1) Embolic infarction: Status: Acute (2) Acute respiratory failure with hypoxia: Status: Acute (3) Diabetes: Status: Acute (4) Acute on chronic clinical systolic heart failure: Status: Acute (5) Alcoholism: Status: Acute (6) Acute CVA (cerebrovascular accident): Status: Acute (7) Atrial fibrillation: Status: Acute Plan Patient now receiving comfort measures. Quality Stroke Does the patient have a stroke diagnosis?: No VTE Prior VTE?: No VTE Risk Level:: Medical - moderate - high VTE Device Contraindication: Treatment Not Indicated VTE Drug Contraindication: N/A - Med Ordered
[2022-10-10] VITALS: BP 123/64; PULSE 83; RESP 18; TEMP 37.9; O2SAT 98
[2022-10-10 03:25] VITALS: BP 123/79; PULSE 87; RESP 20; TEMP 38.1; O2SAT 80
[2022-10-10] MEDS: Scopolamine 1.5 MG PATCH.TD.3 TRANSDERMA (06:48)
[2022-10-10 07:44] VITALS: TEMP 37.2
[2022-10-10] MEDS: Morphine Sulfate 4 MG/ML CARTRIDGE IVPUSH (09:35)
--- NOTE | 2022-10-10 10:29 | P.PNIM_ITS ---
Subjective Subjective Date of Service: 10/10/22 Interval History: Patient looks comfortable needs more morphine for breathing no overnight events Review of Systems Review of Systems: Yes Unobtainable due to mental status Physical Exam Vital Signs: Vital Signs: Last Vital Signs Temp 99.0 F 10/10/22 07:44 Pulse 87 10/10/22 03:25 Resp 20 10/10/22 03:25 BP 123/79 10/10/22 03:25 Pulse Ox 80 L 10/10/22 03:25 O2 Del Method Nasal Cannula 10/10/22 03:25 O2 Flow Rate 2 10/10/22 03:25 FiO2 21 10/09/22 16:42 BMI result Body Mass Index 39.0 Const: Other: [employer] WORK[employer] Objective Data Active Medications Lorazepam (Lorazepam 1 Mg Tablet) 1 mg SUBLINGUAL Q4H PRN PRN Reason: anxiety/restlessness Morphine Sulfate (Morphine Sulfate 4 Mg/Ml Cartridge) 2 mg IVPUSH Q1H PRN PRN Reason: Discomfort/Shortness of breath Ondansetron HCl (Ondansetron Hcl 4 Mg/2 Ml Vial) 4 mg IVPUSH Q8H PRN PRN Reason: Nausea and Vomiting Scopolamine (Scopolamine 1.5 Mg Patch.Td.3) 1.5 mg TRANSDERMA Q72H JESUS Last Admin: 10/10/22 06:48 Dose: 1.5 mg Documented By: DENIS Labs 10/09/22 05:27 10/09/22 05:27 Labs: Laboratory Results - last 24 hr 10/09/22 11:54 POC Glucose 202 H Assessment and Plan (1) Embolic infarction: Status: Acute (2) Acute respiratory failure with hypoxia: Status: Acute Plan 71-year-old gentleman with underlying history of systolic heart failure left and a right-sided, diabetes mellitus, AFib, hypertension admitted on 3 long-time 23 no with alcohol abuse/alcohol withdrawal further complicated by acute embolic infarct with hemorrhagic conversion, acute hypercapnic respiratory failure requiring intubation and ventilatory support.? Patient respiratory status improved with diuresis and he was extubated on 09/24/2022.? However, he remains significantly encephalopathic and continues to fail his swallow evaluation and his hospital course further complicated by recurrent hypernatremia and ongoing congestive heart failure. ? Overnight ? 09/28/2022 with development of res piratory distress secondary to metabolic lactic acidosis requiring intubation and ventilatory and vasopressor support.? Also developed anuria. Blood cultures sent, started on empiric antibiotics.? CT abdomen / pelvis with what appears to be embolic splenic and renal infarcts. Likely transient gastrointestinal ischemia. Evaluated by General surgery and deemed not to require surgical intervention at this time.? After prolonged consideration consideration and multiple discussions of minimal chance of meaningful recovery family/healthcare proxy decided to switch goals of care to palliative measures only.? Code status changed to comfort measures only and patient is planned for terminal extubation. acute Embolic infarction complicated by hemorrhage Respiratory failure with hypoxia comfort measures only Morphine PRN Ativan prn Zofran PRN Scopolamine patch Time Spent With Patient Time: Total time managing care of this patient today ____ minutes. Quality Stroke Does the patient have a stroke diagnosis?: No VTE Prior VTE?: No VTE Risk Level:: Medical - moderate - high VTE Device Contraindication: Treatment Not Indicated VTE Drug Contraindication: N/A - Med Ordered
[2022-10-10] MEDS: Morphine Sulfate 4 MG/ML CARTRIDGE 2 MG IVPUSH ×7 (10:55→23:33)
[2022-10-10] MEDS: Atropine Sulfate 1 % Ophth Sol 2 ML BOTTLE 2 DROP SUBLINGUAL ×3 (15:45→21:33)
--- NOTE | 2022-10-10 18:55 | PC.NURSE ---
Pt arrived to unit via bed. Unresponsive, family at bedside
[2022-10-10 21:32] VITALS: RESP 35
[2022-10-10] MEDS: LORazepam 1 MG TABLET SUBLINGUAL (22:14)
[2022-10-10 23:33] VITALS: RESP 34
[2022-10-10 23:34] VITALS: RESP 34
[2022-10-11 00:41] VITALS: RESP 32
[2022-10-11] MEDS: Morphine Sulfate 4 MG/ML CARTRIDGE 2 MG IVPUSH ×2 (00:41→01:47)
[2022-10-11] MEDS: Atropine Sulfate 1 % Ophth Sol 2 ML BOTTLE 2 DROP SUBLINGUAL (00:44)
--- NOTE | 2022-10-11 03:23 | PM.EVENT ---
Event Note Date of Service: 10/11/22 Event Note: Patient passed at 03:09 Time Spent With Patient Time: Total time managing care of this patient today ____ minutes.
--- NOTE | 2022-10-11 03:43 | PC.NURSE ---
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 Pt repositioned for comfort. At 0256, staff noticed pt's breathing changed. Nurse was getting his Morphine when she was notified of the change. Pt found to not be breathing and did not appear to have a heart beat. notified and pronounced pt at 0309. [employer] called reference #[id number] spoke with Teresa Francisco. Unable to contact family. Pt daughter, Veena Georges ([phone]) when called recording states not in service at this time and pt's son Abimael Georges ([phone]) phone states, unable to accept calls at this time. Nursing quality assurance supervisor final and MD aware family was not notified.
--- NOTE | 2022-10-11 06:02 | PC.NURSE ---
Staff attempted to call patients son and daughter several times to no avail. Nursing pumping supervisor did find another number and was able to confirm with person answering phone that he was a family friend, not relative and he did not know how to get ahold of patients son or daughter. Both MD and pumping supervisor aware family has not been notified. Pt moved to [facility] around 529. Will pass along in report.
--- NOTE | 2022-10-11 07:43 | P.DS_ITS ---
DS: Providers Provider Date of Service: 10/11/22 Date of admission: 09/16/22 19:38 Primary care physician: Matthias Marx MD DS: Diagnosis Discharge Diagnosis (1) Embolic infarction: Status: Acute (2) Acute respiratory failure with hypoxia: Status: Acute (3) Metabolic acidosis: Status: Acute (4) Acute on chronic clinical systolic heart failure: Status: Acute (5) Acute hypernatremia: Status: Acute (6) Ischemic congestive cardiomyopathy: Status: Acute (7) Encephalopathy: Status: Acute (8) Acute CVA (cerebrovascular accident): Status: Acute (9) Acute encephalopathy: Status: Acute (10) Acute kidney injury: Status: Acute DS: Summary Hospital Course Hospital Course: Admission note HPI This is a 71-year-old male with pertinent history of congestive heart failure with reduced ejection fraction, yzz-xcjvslv-thdoertdu diabetes mellitus, atrial fibrillation on Eliquis, mixed hyperlipidemia, essential hypertension who was brought by EMS after he was found for decreased responsiveness.? History obtained by chart review and ER provider.? Patient was last seen normally about 72 hours ago.? Friend noted about a gallon of alcohol near the patient.? Unknown last drink.? EMS dropped off the patient saying he was here for alcohol and left.? Patient unable provide any history as he is altered In the emergency department, patient was initiated on phenobarb protocol Hospital course 71-year-old gentleman with underlying history of systolic heart failure left and a right-sided, diabetes mellitus, AFib, hypertension admitted on 3 long-time 23 no with alcohol abuse/alcohol withdrawal further complicated by acute embolic infarct with hemorrhagic conversion, acute hypercapnic respiratory failure requiring intubation and ventilatory support.? Patient respiratory status improved with diuresis and he was extubated on 09/24/2022.? However, he remains significantly encephalopathic and continues to fail his swallow evaluation and his hospital course further complicated by recurrent hypernatremia and ongoing congestive heart failure. ? Overnight ? 09/28/2022 with development of respirat ory distress secondary to metabolic lactic acidosis requiring intubation and ventilatory and vasopressor support.? Also developed anuria. Blood cultures sent, started on empiric antibiotics.? CT abdomen / pelvis with what appears to be embolic splenic and renal infarcts. Likely transient gastrointestinal ischemia. Evaluated by General surgery and deemed not to require surgical intervention at this time.? After prolonged consideration consideration and multiple discussions of minimal chance of meaningful recovery family/healthcare proxy decided to switch goals of care to palliative measures only.? Code status changed to comfort measures only and patient is planned for terminal extubation. on 10/11/2022 at 3:09 AM. Time Spent with Patient Time attestation: Total time managing care of this patient today ____ minutes. Discharge coordination time: Greater than 30 minutes Quality: Safe Use of Opioids Does Pt have an Active Cancer Diagnosis on the Problem List?: No Quality: Stroke Does the patient have a stroke diagnosis?: Yes Reason for No Anti-thrombotic at DC: Not indicated Reason for No Anticoagulant at DC: Not indicated Reason Not Initiating IV-Tpa: Not indicated Reason for No Anti-thrombotic by Day Two: N/A - Med Ordered Reason for No Statin at DC: Not indicated Physical Exam Vital Signs: Vital Signs: Last Vital Signs Temp 99.0 F 10/10/22 07:44 Pulse 87 10/10/22 03:25 Resp 32 H 10/11/22 00:41 BP 123/79 10/10/22 03:25 Pulse Ox 80 L 10/10/22 03:25 O2 Del Method Nasal Cannula 10/10/22 03:25 O2 Flow Rate 2 10/10/22 03:25 FiO2 21 10/09/22 16:42 BMI result Body Mass Index 39.0 Const: Other: DS: Data Data Completed and Pending Completed studies during hospitalization [Text1]: Procedures Detoxification Services for Substance Abuse Treatment (10/23/21) Discharge Plan Discharge Date/Time: 10/11/22 03:09 Patient Disposition: Discharge Diagnosis: embolic stroke, chf, hypernatremia, hypoxic resp failure Referrals: Matthias Marx MD [Primary Care Provider] - 1 Week Discharge Medications: No Action spironolactone 25 mg Tablet 25 mg PO DAILY Qty: 30 0RF Hold Instructions: Resume on 12/22/21. Protocol: Hold for SBP< HOLD for SBP < : 90 carvedilol 25 mg tablet 25 mg PO BID Qty: 60 0RF pravastatin 40 mg tablet 40 mg PO BEDTIME Qty: 30 0RF glipizide 10 mg tablet 10 mg PO BID Qty: 60 0RF cyanocobalamin (vitamin B-12) 1,000 mcg tablet 1,000 mcg PO DAILY Qty: 30 0RF hydralazine 25 mg Tablet 25 mg PO BID Qty: 60 0RF Protocol: Hold for SBP< HOLD for SBP < : 90 furosemide [Lasix] 80 mg tablet 80 mg PO BID Qty: 60 0RF metformin 1,000 mg tablet 1,000 mg PO BID Qty: 60 0RF digoxin 125 mcg (0.125 mg) Tablet 0.125 mg PO DAILY Qty: 30 0RF Eliquis 5 mg Tablet 5 mg PO BID Qty: 60 0RF Entresto 49-51 mg Tablet 1 tab PO BID Qty: 60 0RF Protocol: Hold for SBP< HOLD for SBP < : 90 multivitamin Tablet 1 tab PO BEDTIME thiamine HCl (vitamin B1) 100 mg tablet 100 mg PO DAILY amlodipine 10 mg tablet 1 tab PO DAILY aspirin 81 mg tablet,delayed release (DR/EC) 81 mg PO BEDTIME folic acid 1 mg tablet 1 mg PO DAILY Discharge Date/Time: 10/11/22 05:25
--- NOTE | 2022-10-11 08:55 | PC.NURSE ---
Patient approx 0300 and nursing was unsuccessful in contacting any family member per the profile contact. [employer] read CM and found contact for the patient's son ex- as the son is currently incarcerated. The ex- was able to provide an updated contact for the patient's daughter Veena Georges ([phone]). At 0530, call placed and a voice message left. Veena Georges call the facility at [phone] and was informed of her father's passing. She expressed her gratitude and stated she will be in to gather his belongings later during the day.
== END 2022-10-11 05:25 | disposition expired | DRG 64 ==
LOC: HO.ED 13:48 → HO.EDOVER 20:19 → HO.IMC 09-17 05:58 → HO.ICU 09-21 03:29 → HO.IMC 10-09 23:04 → HO.S3 10-10 18:06
PROVIDERS: Hospitalist; Internal Medicine Cardiovascular Disease; Internal Medicine Pulmonary Disease; Nurse Practitioner Family; Physician Assistant Medical; Registered Nurse Community Health; Surgery; Admitting Provider Student in an Organized Health Care Education/Training Program; Emergency Provider Emergency Medicine; PCP Internal Medicine Geriatric Medicine; Visit Provider Student in an Organized Health Care Education/Training Program
DX: I63.443 Cerebral infarction due to embolism of bilateral cerebellar arteries (principal); G92.8 Other toxic encephalopathy; J96.01 Acute respiratory failure with hypoxia; J96.02 Acute respiratory failure with hypercapnia; I61.9 Nontraumatic intracerebral hemorrhage, unspecified; I50.23 Acute on chronic systolic (congestive) heart failure; F10.231 Alcohol dependence with withdrawal delirium; I48.20 Chronic atrial fibrillation, unspecified; N28.0 Ischemia and infarction of kidney; E87.0 Hyperosmolality and hypernatremia; N17.9 Acute kidney failure, unspecified; Z51.5 Encounter for palliative care; E11.65 Type 2 diabetes mellitus with hyperglycemia; E78.2 Mixed hyperlipidemia; I50.82 Biventricular heart failure; I95.9 Hypotension, unspecified; I44.7 Left bundle-branch block, unspecified; I25.5 Ischemic cardiomyopathy; R13.10 Dysphagia, unspecified; D73.5 Infarction of spleen; T45.516A Underdosing of anticoagulants, initial encounter; L85.3 Xerosis cutis; Z20.822 Contact with and (suspected) exposure to COVID-19; Z87.891 Personal history of nicotine dependence; Z79.01 Long term (current) use of anticoagulants; Z79.84 Long term (current) use of oral hypoglycemic drugs; Z79.82 Long term (current) use of aspirin; Z79.899 Other long term (current) drug therapy
CPT/HCPCS: 36415; 36600; 70450; 70551; 71045; 74018; 74177; 76705; 80048; 80053; 80061; 80076; 80202; 80307; 81001; 82009; 82040; 82077; 82140; 82803; 82947; 83036; 83605; 83735; 83880; 84100; 84443; 84484; 85025; 85027; 85379; 85610; 87040; 87070; 87147; 87205; 87635; 92610; 92950; 93005; 93306; 93308; 94002; 94003; 94640; 94799; 97162; 97166; 99285; C1758; J0131; J0295; J1160; J1650; J1940; J2270; J2543; J2560; J3010; J3370; J3371; J3411; J3475; P9047; Q9957; Q9967